=== PATIENT | female | born 1945 | race Caucasian/White ===

== ENCOUNTER → 2018-05-21 09:16 | Outpatient (CLI) | payer MEDICARE, SELFPAY ==
[2018-05-21 11:59] LABS: Anion Gap 7 (5-15); BUN 15 mg/dL (7-18); BUN/Creat Ratio 19.1 RATIO (10-20); Calcium,Total 8.9 mg/dL (8.5-10.1); Chloride 102 mmol/L (98-107); Cholesterol 173 mg/dL (200); Creatinine, Serum 0.79 mg/dL (0.55-1.02); EST Glomerular Filtration Rate 76 mL/min (>60); Est Glom Filt Rate - Afr Amer 92 mL/min (>60); Glucose 91 mg/dL (74-106); Hemoglobin A1c 5.8 % (4.2-6.3); High Density Lipoprotein 48 mg/dL; Potassium 3.6 mmol/L (3.5-5.1); Sodium Level 140 mmol/L (136-145); Triglycerides 132 mg/dL; Very Low Density Lipoprotein 26 mg/dL (5-40)
== END ==
PROVIDERS: Visit Provider Family Medicine
DX: I10 Essential (primary) hypertension (principal); R73.09 Other abnormal glucose; E78.00 Pure hypercholesterolemia, unspecified
CPT/HCPCS: 36415; 80048; 80061; 83036

== ENCOUNTER → 2019-06-26 10:09 | Outpatient (CLI) | payer MEDICARE, SELFPAY ==
[2019-06-26 12:23] LABS: Absolute Lymphocyte Count 2.52 X10^3/uL (0.83-4.51); Absolute Neutrophil Count 4.6 X10^3/uL (2.0-7.7); Basophil# 0.04 X10^3/uL; Basophil% 0.5 % (0-1); Eosinophil# 0.17 X10^3/uL; Eosinophils% 2.1 % (0-5); Hematocrit 39.1 % (37-47); Hemoglobin 13.1 g/dL (12.0-15.0); Lymphocyte # 2.52 X10^3/ul (4.0); Lymphocyte % 31.5 % (19-41); Mean Corp Hgb Conc 33.5 g/dL (32-36); Mean Corpuscular Hgb 32.3 pg (27.0-32.0); Mean Corpuscular Volume 96.3 fL (81-99); Mean Platelet Vol. 11.3 fl (6.2-12.0); Monocyte% 7.5 % (0-10); NRBC Flagged by Analyzer 0 % (0-5); Neutrophil # 4.64 X10^3/uL (2.7-7.7); Neutrophil % 58.1 % (47-70); Platelet Count 210 K/mm3 (150-450); RBC Distribution Width CV 12.8 % (11.6-14.6); RBC Distribution Width SD 45.3 fl (35.1-43.9); Red Blood Count 4.06 M/mm3 (4.2-5.4)
[2019-06-26 12:49] LABS: Anion Gap 8 (5-15); BUN 22 mg/dL (7-18); BUN/Creat Ratio 28.5 RATIO (10-20); Chloride 105 mmol/L (98-107); Cholesterol 184 mg/dL (200); Creatinine, Serum 0.77 mg/dL (0.55-1.02); EST Glomerular Filtration Rate 78 mL/min (>60); Est Glom Filt Rate - Afr Amer 94 mL/min (>60); Glucose 117 mg/dL (74-106); High Density Lipoprotein 41 mg/dL; Potassium 3.4 mmol/L (3.5-5.1); Sodium Level 145 mmol/L (136-145); Triglycerides 211 mg/dL; Very Low Density Lipoprotein 42 mg/dL (5-40)
[2019-06-26 13:00] LABS: Hemoglobin A1c 5.7 % (4.2-6.3)
== END ==
PROVIDERS: Family Provider Family Medicine; PCP Family Medicine; Referring Provider Family Medicine; Visit Provider Family Medicine
DX: I10 Essential (primary) hypertension (principal); R73.09 Other abnormal glucose; E78.00 Pure hypercholesterolemia, unspecified
CPT/HCPCS: 36415; 80048; 80061; 83036; 85025

== ENCOUNTER → 2019-07-18 | Outpatient (CLI) | payer MEDICARE, SELFPAY ==
[2019-07-18 13:11] LABS: Thyroid Stim Hormone (TSH) 1.62 uIU/mL (0.358-3.74)
== END | disposition home or self-care (01) ==
LOC: MFPLAB 10:11
PROVIDERS: Family Provider Family Medicine; PCP Family Medicine; Referring Provider Family Medicine; Visit Provider Family Medicine
DX: R60.9 Edema, unspecified (principal)
CPT/HCPCS: 36415; 84443

== ENCOUNTER → 2020-10-21 15:26 | Outpatient (CLI) | payer MEDICARE, SELFPAY ==
[2020-10-21 17:37] LABS: Absolute Lymphocyte Count 2.71 X10^3/uL (0.83-4.51); Absolute Neutrophil Count 4.7 X10^3/uL (2.0-7.7); Basophil# 0.05 X10^3/uL; Basophil% 0.6 % (0-1); Eosinophil# 0.19 X10^3/uL; Eosinophils% 2.2 % (0-5); Hematocrit 42.7 % (37-47); Hemoglobin 13.7 g/dL (12.0-15.0); Lymphocyte # 2.71 X10^3/ul (4.0); Mean Corp Hgb Conc 32.1 g/dL (32-36); Mean Corpuscular Hgb 31.4 pg (27.0-32.0); Mean Corpuscular Volume 97.7 fL (81-99); Mean Platelet Vol. 11.1 fl (6.2-12.0); Monocyte# 0.82 X10^3/uL; Monocyte% 9.7 % (0-10); NRBC Flagged by Analyzer 0 % (0-5); Neutrophil # 4.67 X10^3/uL (2.7-7.7); Neutrophil % 55.3 % (47-70); Platelet Count 220 K/mm3 (150-450); RBC Distribution Width SD 46.4 fl (35.1-43.9); Red Blood Count 4.37 M/mm3 (4.2-5.4); White Blood Count 8.5 K/mm3 (4.4-11.0)
[2020-10-21 19:27] LABS: ALB/GLOB Ratio 0.8 RATIO (0.9-2.4); AST(SGOT) 23 U/L (15-37); Alanine Aminotransfer ALT/SGPT 26 U/L (13-56); Albumin, Serum 3.2 g/dL (3.2-5.0); Alkaline Phosphatase 137 U/L (45-117); Anion Gap 6 (5-15); BUN 13 mg/dL (7-18); BUN/Creat Ratio 17.4 RATIO (10-20); Calcium,Total 9.7 mg/dL (8.5-10.1); Chloride 102 mmol/L (98-107); Creatinine, Serum 0.75 mg/dL (0.55-1.02); EST Glomerular Filtration Rate 80 mL/min (>60); Est Glom Filt Rate - Afr Amer 97 mL/min (>60); Glucose 100 mg/dL (74-106); Potassium 3.7 mmol/L (3.5-5.1); Protein, Total 7.2 g/dL (6.4-8.2); Sodium Level 139 mmol/L (136-145); Thyroid Stim Hormone (TSH) 2.24 uIU/mL (0.358-3.74)
[2020-10-22 03:33] LABS: Rapid Plasmin Reagin (RPR) NONREACTIVE (NONREACTIVE)
[2020-10-22 09:21] LABS: Hepatitis C Antibody Non-Reactive (Nonreactive); Vitamin B12 511 pg/mL (211-911); Vitamin D,25 Hydroxy 47.2 ng/mL
== END ==
PROVIDERS: PCP Family Medicine Geriatric Medicine; Referring Provider Family Medicine Geriatric Medicine; Visit Provider Family Medicine Geriatric Medicine
DX: E55.9 Vitamin D deficiency, unspecified (principal); F06.8 Other specified mental disorders due to known physiological condition; R53.83 Other fatigue; Z13.89 Encounter for screening for other disorder
CPT/HCPCS: 36415; 80053; 82306; 82607; 82746; 84443; 85025; 86592; 86803

== ENCOUNTER → 2020-10-26 13:55 | Outpatient (CLI) | payer MEDICARE, SELFPAY ==
--- NOTE | 2020-10-26 14:00 | CT_ITS ---
STUDY: CT BRAIN WITHOUT CONTRAST REASON FOR EXAM: Female, 75 years old. Mild cognitive impairment RADIATION DOSAGE (If Supplied By Facility): CTDIvol = ( 60.81 ) mGy, DLP = ( 1067.08 ) mGycm TECHNIQUE: Transaxial CT imaging of the brain was performed without administration of intravenous contrast material. Individualized dose optimization techniques were used for this CT. COMPARISON: No relevant priors. FINDINGS: Normal soft tissue structures. Normal calvarium. There is mild cerebral atrophy with widening of the extra-axial spaces and ventricular dilatation. There are areas of decreased attenuation within the white matter tracts of the supratentorial brain, consistent with microvascular disease changes. Small lacunar infarct in the insular cortex of the left temporal lobe. Normal brainstem. Normal cerebellum. There is no intracranial hemorrhage. There are no findings of an acute ischemic infarction. Mild mucosal thickening along the inferior lateral aspect of the maxillary sinuses bilaterally. CT/Brain/Head without Contrast IMPRESSION: Chronic involutional changes of the brain. 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 Electronically Signed: Mark Smith, at 14:42 EST , Service support ,
== END ==
PROVIDERS: PCP Family Medicine Geriatric Medicine; Referring Provider Family Medicine Geriatric Medicine; Visit Provider Family Medicine Geriatric Medicine
DX: F06.8 Other specified mental disorders due to known physiological condition (principal)
CPT/HCPCS: 70450

== ENCOUNTER → 2020-10-27 09:32 | Outpatient (CLI) | payer MEDICARE, SELFPAY ==
--- NOTE | 2020-10-27 09:35 | BI_ITS ---
MAMMOGRAPHY - BILATERAL SCREENING REASON FOR EXAM: Female, 75 years old. Routine annual screening examination. PERTINENT HISTORY: Non-contributory. TECHNIQUE: Digital bilateral breast phil (3D mammographic acquisition) in the CC and MLO projections. 2-D mediolateral oblique (MLO) and craniocaudad (CC) views of both breasts were obtained. CAD: Full Field Digital Mammography with Computer Added Detection was performed. COMPARISON: Comparison is made with prior study dated 10/16/2012. FINDINGS: Breast Composition: The breasts are almost entirely fatty. There are no dominant masses or suspicious calcifications. Stable 6.5 mm well-defined nodule in the upper outer aspect of the right breast suggestive of a small lymph node. There is a 7.9 mm low-density nodule with a fine rim calcification in the anterior superior medial retroareolar region of the left breast suggestive of a small fat necrosis. No other significant abnormalities are identified. There has been no significant change since the prior study. BI/SCREEN MAMM (CAD) W/PHIL BILAT IMPRESSION: Stable bilateral screening mammogram. Yearly follow-up mammogram recommended. (A) ASSESSMENT CATEGORY: BIRADS Category 2: Benign. A letter regarding these results will be sent to the patient by the facility within 30 days. Approximately 10% of breast cancers are not detected by mammography. A normal mammogram should not delay biopsy of a clinically suspicious abnormality. [id number] Electronically Signed: Mark Smith, at 10:39 EST , Service support ,
--- NOTE | 2020-10-27 09:37 | BD_ITS ---
STUDY: DUAL ENERGY X-RAY ABSORPTIOMETRY / DXA REASON FOR EXAM: Female, 75 years old. 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 COMPARISON: None. FINDINGS: Lumbar Spine (L1-L4): g/cm2 (1.280) / T-score (1.0) / Z-score (2.7) Findings are suggestive of normal bone density with a low fracture risk. Left Femur Total: g/cm2 (1.170) / T-score (1.3) / Z-score (3.0) Left Femoral Neck: g/cm2 (1.061) / T-score (0.2) / Z-score (2.1) Right Femur Total: g/cm2 (1.212) / T-score (1.6) / Z-score (3.4) Right Femoral Neck: g/cm2 (1.148) / T-score (0.8) / Z-score (2.7) BD/Dexa Bone Density Study IMPRESSION: The patient is considered normal as outlined below according to World [employer]omen[employer] Organization (WHO) criteria with a low fracture risk. Reference Information: The T-score is the number of standard deviations above or below the standard which is normal for young adults at their peak bone mineral density. The World Health Organization (WHO) interprets the T-scores as follows: Above -1 Normal bone density Between -1 and -2.5 Osteopenia Equal to / or below -2.5 Osteoporosis As a practical clinical guideline, osteopenia may be graded as follows: Mild -1 through -1.5 Moderate -1.6 through -2.0 Severe -2.1 through -2.4 The Z-score is the number of standard deviations above or below age-matched controls. A Z-score of less than -1.5 would be considered abnormal. References: 1. NIH Osteoporosis and Related Bone Diseases www osteo.org 2. International Society for Clinical Densitometry www iscd.org 3. National Osteoporosis Foundation www nof.org Electronically Signed: Mark Smith, at 14:25 EST , Service support ,
== END ==
PROVIDERS: PCP Family Medicine Geriatric Medicine; Referring Provider Family Medicine Geriatric Medicine; Visit Provider Family Medicine Geriatric Medicine
DX: Z78.0 Asymptomatic menopausal state (principal); Z12.31 Encounter for screening mammogram for malignant neoplasm of breast
CPT/HCPCS: 77063; 77067; 77080

== ENCOUNTER → 2021-02-16 14:33 | Outpatient (CLI) | payer MEDICARE, SELFPAY ==
--- NOTE | 2021-02-16 14:40 | RAD_ITS ---
STUDY: X-RAY - LUMBAR SPINE REASON FOR EXAM: Female, 75 years old. LOW BACK PAIN TECHNIQUE: 3 view(s) of the lumbar spine were obtained. COMPARISON: None FINDINGS: Normal lumbar lordosis. There is a mild levoscoliosis of the lumbar spine. There is a normal alignment of the vertebrae. There is multilevel endplate spondylosis of the lumbar vertebrae. There is multi-level degenerative disc disease with multi-level disc space narrowing. There is atherosclerotic calcification of the abdominal aorta without a demonstrated aneurysm. RAD/Lumbar Spine 2 or 3 Views IMPRESSION: Degenerative changes of the spine, as detailed above. Electronically Signed: Mark Smith MD at 9:18 EDT , Service support ,
== END ==
PROVIDERS: PCP Family Medicine Geriatric Medicine; Referring Provider Family Medicine Geriatric Medicine; Visit Provider Family Medicine Geriatric Medicine
DX: M54.5 Low back pain (principal)
CPT/HCPCS: 72100

== ENCOUNTER → 2021-02-21 16:32 | Outpatient (CLI) | payer MEDICARE, SELFPAY | PROVIDERS: PCP Family Medicine Geriatric Medicine; Visit Provider Family Medicine Geriatric Medicine | DX: N39.0 Urinary tract infection, site not specified (principal) | CPT/HCPCS: 87086; 87088 ==

== ENCOUNTER → 2021-03-03 12:44 | Outpatient (CLI) | payer MEDICARE, SELFPAY ==
--- NOTE | 2021-03-03 12:51 | MRI_ITS ---
STUDY: MRI LUMBAR SPINE WITHOUT CONTRAST REASON FOR EXAM: Female, 75 years old. LOW BACK PAIN TECHNIQUE: Standardized fat and water weighted pulse sequences were obtained in the sagittal and axial planes. COMPARISON: X-ray 02/16/2021 FINDINGS: T12-L1: Normal endplates. Normal disc height, hydration and morphology. Normal bilateral facet joints. Normal central canal and bilateral lateral recesses. Normal bilateral intervertebral neural foramina. Normal lumbar lordosis. Mild levoscoliosis centered at L3. Normal conus medullaris that terminates at the L1/L2. L1-2: Mild bilateral facet hypertrophy and moderate ligament flavum hypertrophy. No disc protrusion, spinal stenosis, or neural foraminal stenosis. L2-3: Mild bilateral facet hypertrophy and moderate ligament flavum hypertrophy. No disc protrusion, spinal stenosis, or neural foraminal stenosis. L3-4: Moderate bilateral facet hypertrophy and ligament flavum hypertrophy. Mild bilobed disc protrusion produces mild spinal stenosis and mild bilateral neural foraminal stenosis. L4-5: Moderate bilateral facet hypertrophy and ligament flavum hypertrophy. Mild broad disc protrusion produces mild spinal stenosis and mild bilateral neural foraminal stenosis. L5-S1: Severe bilateral facet hypertrophy and moderate ligament flavum hypertrophy. 2 mm of anterolisthesis of L5 on S1 with a mild broad disc protrusion produces mild spinal stenosis but moderate bilateral neural foraminal stenosis. Normal visualized sacral ala. Normal visualized paraspinous soft tissue structures. MRI/Spine Lumbar (Routine) IMPRESSION: Mild levoscoliosis with diffuse degenerative disc disease as described above. Electronically Signed: Martinez Marinelli MD at 15:31 EDT Tel , Service support ,
== END ==
PROVIDERS: PCP Family Medicine Geriatric Medicine; Referring Provider Family Medicine Geriatric Medicine; Visit Provider Family Medicine Geriatric Medicine
DX: M54.5 Low back pain (principal)
CPT/HCPCS: 72148

== ENCOUNTER → 2021-04-22 08:58 | Outpatient (CLI) | payer MEDICARE, SELFPAY ==
[2021-04-22 12:23] LABS: Absolute Lymphocyte Count 1.97 X10^3/uL (0.83-4.51); Absolute Neutrophil Count 5.3 X10^3/uL (2.0-7.7); Basophil# 0.04 X10^3/uL; Basophil% 0.5 % (0-1); Eosinophil# 0.11 X10^3/uL; Eosinophils% 1.3 % (0-5); Hematocrit 43.5 % (37-47); Hemoglobin 14.3 g/dL (12.0-15.0); Lymphocyte # 1.97 X10^3/ul (0.83-4.51); Lymphocyte % 24.2 % (19-41); Mean Corp Hgb Conc 32.9 g/dL (32-36); Mean Corpuscular Hgb 31.4 pg (27.0-32.0); Mean Corpuscular Volume 95.6 fL (81-99); Mean Platelet Vol. 11.1 fl (6.2-12.0); Monocyte# 0.69 X10^3/uL; Monocyte% 8.5 % (0-10); NRBC Flagged by Analyzer 0 % (0-5); Neutrophil # 5.31 X10^3/uL (2.7-7.7); Neutrophil % 65.1 % (47-70); Platelet Count 252 K/mm3 (150-450); RBC Distribution Width CV 13.6 % (11.6-14.6); RBC Distribution Width SD 47.8 fl (35.1-43.9); Red Blood Count 4.55 M/mm3 (4.2-5.4); White Blood Count 8.2 K/mm3 (4.4-11.0)
[2021-04-22 12:40] LABS: Vitamin D,25 Hydroxy 48.2 ng/mL
[2021-04-22 12:45] LABS: ALB/GLOB Ratio 0.8 RATIO (0.9-2.4); AST(SGOT) 21 U/L (15-37); Alanine Aminotransfer ALT/SGPT 29 U/L (13-56); Alkaline Phosphatase 122 U/L (45-117); Anion Gap 5 (5-15); BUN 14 mg/dL (7-18); Calcium,Total 9.1 mg/dL (8.5-10.1); Chloride 105 mmol/L (98-107); Creatinine, Serum 0.87 mg/dL (0.55-1.02); EST Glomerular Filtration Rate 67 mL/min (>60); Est Glom Filt Rate - Afr Amer 81 mL/min (>60); Globulin 3.8 g/dL (2.2-4.2); Glucose 108 mg/dL (74-106); Potassium 3.8 mmol/L (3.5-5.1); Protein, Total 6.8 g/dL (6.4-8.2); Sodium Level 141 mmol/L (136-145); Thyroid Stim Hormone (TSH) 1.66 uIU/mL (0.358-3.74)
== END ==
PROVIDERS: PCP Family Medicine Geriatric Medicine; Visit Provider Family Medicine Geriatric Medicine
DX: E55.9 Vitamin D deficiency, unspecified (principal); I10 Essential (primary) hypertension
CPT/HCPCS: 36415; 80053; 82306; 84443; 85025

== ENCOUNTER 2021-06-27 14:14 | Observation (INO) | payer MEDICARE, SELFPAY ==
[2021-06-27] VITALS (7 sets, daily range): BP systolic 185–244; BP diastolic 63–93; PULSE 51–97; RESP 16–18; TEMP 35.5–36.7; O2SAT 95–100; BMI 40.2; BMI 40.6
--- NOTE | 2021-06-27 16:05 | RAD_ITS ---
STUDY: X-RAY CHEST REASON FOR EXAM: Female, 76 years old. dizziness TECHNIQUE: Single frontal view of the chest. COMPARISON: 10/23/2014 chest x-ray FINDINGS: Elevated right hemidiaphragm. Subsegmental atelectasis right lower lobe. The lungs are clear and expanded. There is no demonstrated pleural abnormality. Normal size heart. Normal mediastinum and jose rafael. Normal visualized pulmonary arteries. Normal visualized aortic arch and descending thoracic aorta. Normal visualized thoracic spine. Normal visualized ribs, clavicles, and shoulders. There is no demonstrated abnormality of the visualized soft tissue structures of the upper abdomen. RAD/Chest 1 View (Portable) IMPRESSION: Subsegmental atelectasis right lower lung field. Otherwise no acute disease. Electronically Signed: Alexis Chavez MD at 17:58 EDT , Service support ,
--- NOTE | 2021-06-27 16:05 | EKG12_ITS ---
Test Reason : DIZZY Blood Pressure : / mmHG Vent. Rate : 045 BPM Atrial Rate : 045 BPM P-R Int : 142 ms QRS Dur : 076 ms QT Int : 462 ms P-R-T Axes : 061 000 026 degrees QTc Int : 399 ms Sinus bradycardia Otherwise normal ECG Confirmed by [place] SANDERS, ERIC ([id number]), technical editor KENDAL MCKENNA ([id number]) on 06/29/2021 10:42:48 AM Referred By: EUFEMIA Confirmed By:ERIC OSBORNE MD
--- NOTE | 2021-06-27 16:10 | EX.ED.DYSGE1 ---
HPI History of Present Illness Chief Complaint: Dizziness Informant: patient Narrative Narrative: Patient is a 76-year-old female with history of diabetes mellitus, hyperlipidemia, GERD and hypertension presenting with dizziness. Patient states she woke up this morning and felt dizzy. She states is worse whenever she tries to stand up. She states she sat up and then threw up because she was a dizzy. She notes she then fell like she was going to pass out. Family checked her and said she was very clammy. She never had this before. She is better when she is at rest. She denies associated chest pain, shortness of breath, fever, cough, abdominal pain, change in her bowel habits, black or blood in her stool, or urinary symptoms. Did not take any medications prior to arrival for her symptoms. No she did take her morning medicines but then threw up shortly afterward so she is not sure if they stay down. [facility] Medical History (Updated 06/28/21 @ 00:[address] Amy Beal, DO) HTN (hypertension) Hyperlipidemia Morbid obesity with BMI of 45.0-49.9, adult Home Medications metoprolol tartrate 200 mg PO DAILY 10/23/14 [History Last Taken 10/23/14 08:00] aspirin 81 mg PO DAILY@0800 #90 tablet 10/24/14 [Rx Last Taken Unknown] Systane (PF) 1 cap DAILY 06/27/21 [History Last Taken Unknown] calcium 500 mg PO DAILY 06/27/21 [History Last Taken Unknown] cholecalciferol (vitamin D3) [Vitamin D3] 50 mcg PO DAILY 06/27/21 [History Last Taken Unknown] docosahexaenoic acid-epa [Fish Oil (with DHA-EPA)] 1 cap PO DAILY 06/27/21 [History Last Taken Unknown] hydrochlorothiazide [HydroDiuril] 50 mg PO DAILY 06/27/21 [History Last Taken Unknown] rivastigmine tartrate 1.5 mg PO BID 06/27/21 [History Last Taken Unknown] Allergy/AdvReac Type Severity Reaction Status Date / Time No Known Allergies Allergy Verified 06/27/21 14:16 Family History Mother CVA (cerebral vascular accident) Hypertension Cancer Leukemia Father CVA (cerebral vascular accident) COPD (chronic obstructive pulmonary disease) Surgical History History of section Hx of cholecystectomy S/P tonsillectomy and adenoidectomy Social History household members: none Smoking Status: Never smoker alcohol intake: never substance use type: does not use ROS ROS ED Constitutional Constitutional ED: Reports sweats and other Details: Dizziness ; Denies chills or fever(s) Eyes Eyes: Denies blurry vision or change in vision ENT ENT ED: Denies ear pain or sore throat Cardiovascular Cardiovascular: Denies chest pain or palpitations Respiratory/Chest Respiratory/Chest: Denies cough or dyspnea Gastrointestinal Gastrointestinal: Reports nausea and vomiting; Denies abdominal pain, constipation, diarrhea or melena Genitourinary Genitourinary ED: Denies dysuria or hematuria Musculoskeletal Musculoskeletal: Denies myalgias Integumentary Denies rash Neurologic Neurologic: Denies headache(s), paresthesias or weakness Psychiatric Psychiatric: Denies depression EXAM Physical Exam Const Vital Signs: 06/27/21 14:16 06/27/21 16:34 06/27/21 16:36 Temperature 95.9 F L Temperature Source Temporal Pulse Rate 97 Respiratory Rate 16 Respiratory Effort Normal Non-Labored Respiratory Pattern Normal Blood Pressure 199/88 H 188/75 H Blood Pressure Mean 125 112 Pulse Ox 95 Oxygen Delivery Method Room Air 06/27/21 18:02 Temperature Temperature Source Pulse Rate 51 L Respiratory Rate 16 Respiratory Effort Respiratory Pattern Blood Pressure 244/77 H Blood Pressure Mean 132 Pulse Ox 97 Oxygen Delivery Method Room Air Positive well nourished, well developed and obese General Appearance ED: well developed Nutritional Appearance: obese HEENT Reports TM's clear and moist mucous membranes Negative for tenderness Tympanic Membrane ED: Yes TM's clear Eyes PERRL and EOMs intact bilaterally Eyes Narrative: Patient has resting horizontal nystagmus especially with left lateral gaze. Positive Britni-Hallpike maneuver on the left Neck supple and no JVD Resp normal respiratory effort and clear to auscultation bilaterally Cardio regular rate, regular rhythm and no murmurs GI normal to inspection, nondistended, normoactive bowel sounds and non-tender Back/Spine no CVA tenderness Extremity normal to inspection General Extremety ED: Negative for edema or tenderness General Extremity: Negative for edema Neuro oriented x3, CN's II-XII intact bilaterally and no sensory deficits noted Sensorium / Orientation: alert Motor Exam: strength 5/5 throughout; Negative for general weakness Psych mental status grossly normal Skin no rashes or lesions noted MDM MDM MDM Narrative Medical decision making narrative: Patient is evaluated for dizziness. Physical exam is consistent with vertigo however she is states she feels more like she is lightheaded going to pass out. She does have multiple comorbidities and is 76 so metabolic/cardiac work-up was also performed. Patient is found to have an elevated high-sensitivity troponin of 104.4. She does not have any acute EKG changes. This is discussed with cardiology who would like to admit for trending but does not think she needs to be treated as an NSTEMI with heparin drip at this time. Patient is given aspirin the emergency room as well as meclizine. She is quite hypertensive in the ER and is treated with IV hydralazine. She is admitted for further cardiac evaluation and treatment for her dizziness. Patient is agreeable this plan of care. Lab Data Labs: Laboratory Results - last 24 hr 06/27/21 06/27/21 06/27/21 16:00 16:00 17:12 WBC 10.0 RBC 4.45 Hgb 14.4 Hct 44.1 MCV 99.1 H MCH 32.4 H MCHC 32.7 RDW Std Deviation 46.6 H RDW Coeff of Alexa 12.9 Plt Count 253 MPV 10.8 Immature Gran % (Auto) 0.500 Neut % (Auto) 74.0 H Lymph % (Auto) 19.1 [place]field % (Auto) 5.3 Eos % (Auto) 0.8 Baso % (Auto) 0.3 Absolute Neuts (auto) 7.4 Absolute Lymphs (auto) 1.90 Nucleated RBC % 0 Sodium 139 Potassium 4.3 Chloride 102 Carbon Dioxide 32.0 Anion Gap 5 BUN 11 Creatinine 0.66 Estim Creat Clear Calc 37.85 Est GFR (MDRD) Af Amer 111 Est GFR (MDRD) Non-Af 92 BUN/Creatinine Ratio 16.6 Glucose 108 H Calcium 9.3 Total Bilirubin 1.10 H AST 31 ALT 23 Alkaline Phosphatase 108 Troponin I High Sens 104.4 H* Total Protein 7.1 Albumin 3.1 L Globulin 4.0 Albumin/Globulin Ratio 0.8 L Lipase 61 L Urine Color Yellow Urine Clarity Clear Urine pH 7.0 Ur Specific [place] 1.010 Urine Protein Negative Urine Glucose (UA) Normal Urine Ketones Negative Urine Occult Blood Negative Urine Nitrite Negative Urine Bilirubin Negative Urine Urobilinogen Normal Ur Leukocyte Esterase Negative Urine RBC 0 SEEN Urine WBC 0-5 SEEN Ur Squamous Epith Cells 0 SEEN Urine Bacteria 0 SEEN Urine Mucus 0 SEEN Radiography Chest X-Ray - ED: 1 View, Read by ED Physician, Read by Radiologist and No Acute Disease Diagnostic Testing: Radiology Impression Brain CT 06/27/21 17:47 IMPRESSION: Chronic involutional changes of the brain. No change or acute abnormality. Electronically Signed: Leeroy Schroeder MD at 19:05 EDT , Service support , Rhythm Strip Rhythm Strip: sinus bradycardia Rate: 45 Ectopy: None EKG Initial EKG: Attestation: I personally reviewed and interpreted this EKG as follows: Interpretation: Sinus Bradycardia Comments: Sinus bradycardia rate of 45 Slight left axis deviation Normal intervals Nonspecific T wave inversion in lead III Normal ST segments Discharge Plan Dx/Rx/DC Orders Clinical Impression: NSTEMI, initial episode of care, BPPV (benign paroxysmal positional vertigo), Hypertension Disposition Disposition: Acute Care Hospital [facility] Discharge Date/Time: 06/27/21 19:49
[2021-06-27 16:22] LABS: Absolute Neutrophil Count 7.4 X10^3/uL (2.0-7.7); Basophil# 0.03 X10^3/uL; Basophil% 0.3 % (0-1); Eosinophil# 0.08 X10^3/uL; Eosinophils% 0.8 % (0-5); Hematocrit 44.1 % (37-47); Hemoglobin 14.4 g/dL (12.0-15.0); Lymphocyte % 19.1 % (19-41); Mean Corp Hgb Conc 32.7 g/dL (32-36); Mean Corpuscular Hgb 32.4 pg (27.0-32.0); Mean Corpuscular Volume 99.1 fL (81-99); Mean Platelet Vol. 10.8 fl (6.2-12.0); Monocyte# 0.53 X10^3/uL; Monocyte% 5.3 % (0-10); NRBC Flagged by Analyzer 0 % (0-5); Neutrophil # 7.37 X10^3/uL (2.7-7.7); Platelet Count 253 K/mm3 (150-450); RBC Distribution Width CV 12.9 % (11.6-14.6); RBC Distribution Width SD 46.6 fl (35.1-43.9); Red Blood Count 4.45 M/mm3 (4.2-5.4)
[2021-06-27] MEDS: Meclizine HCl 25 MG Tablet PO (16:41)
[2021-06-27] MEDS: Ondansetron 4 MG/2 ML Vial IV (16:42)
[2021-06-27 17:02] LABS: ALB/GLOB Ratio 0.8 RATIO (0.9-2.4); AST(SGOT) 31 U/L (15-37); Alanine Aminotransfer ALT/SGPT 23 U/L (13-56); Albumin, Serum 3.1 g/dL (3.2-5.0); Alkaline Phosphatase 108 U/L (45-117); Anion Gap 5 (5-15); BUN 11 mg/dL (7-18); BUN/Creat Ratio 16.6 RATIO (10-20); Calcium,Total 9.3 mg/dL (8.5-10.1); Chloride 102 mmol/L (98-107); Creatinine, Serum 0.66 mg/dL (0.55-1.02); EST Glomerular Filtration Rate 92 mL/min (>60); Est Glom Filt Rate - Afr Amer 111 mL/min (>60); Estimated Creatinine Clearance 37.85 ml/min; Glucose 108 mg/dL (74-106); Lipase 61 U/L (73-393); Potassium 4.3 mmol/L (3.5-5.1); Protein, Total 7.1 g/dL (6.4-8.2); Sodium Level 139 mmol/L (136-145); Troponin-I HS 104.4 pg/mL (3.0-53.7)
--- NOTE | 2021-06-27 17:47 | CT_ITS ---
STUDY: CT BRAIN WITHOUT CONTRAST REASON FOR EXAM: Female, 76 years old. dizziness RADIATION DOSAGE (If Supplied By Facility): CTDIvol = ( 44.99 ) mGy, DLP = ( 698.28 ) mGycm TECHNIQUE: Transaxial CT imaging of the brain was performed without administration of intravenous contrast material. Individualized dose optimization techniques were used for this CT. COMPARISON: 10/26/2020 FINDINGS: Normal soft tissue structures. Normal calvarium. There is mild cerebral atrophy with widening of the extra-axial spaces and ventricular dilatation. There are areas of decreased attenuation within the white matter tracts of the supratentorial brain, consistent with microvascular disease changes. Normal basal ganglia and thalami. Normal brainstem. Normal cerebellum. There is no intracranial hemorrhage. There are no findings of an acute ischemic infarction. Normal visualized paranasal sinuses. CT/Brain/Head without Contrast IMPRESSION: Chronic involutional changes of the brain. No change or acute abnormality. Electronically Signed: Leeroy Schroeder MD at 19:05 EDT , Service support ,
[2021-06-27] MEDS: hydrALAZINE 20 MG/ML Vial 10 MG IV (17:52)
[2021-06-27] MEDS: Aspirin 325 MG Tablet PO (17:52)
--- NOTE | 2021-06-27 17:52 | HP.PCM.HOS_ITS ---
HPI - General General Date of Admission: 06/27/21 Date of Service: 06/27/21 Chief Complaint: Dizziness, N/V HPI Narrative The patient is 76 y/o F w/ PMHx: Morbid obesity, HTN, HLD, GERD not on regimen who presents to the [facility] ED on 06/27/21 with history of awaking this morning with dizziness, described as room spinning sensation with associated nausea as well as emesis, worse with inactivity attempts with near syncope related with family evaluation later in the day noting that she was very diaphoretic eventually bring her into the ED for evaluation. She denied any chest discomfort or any recent exertional dyspnea but does state that she is not very active. Work-up in the ED included T 95.9, HR 97, BP 199/88-->188/75, RR 16, 95-96% on RA, CBC with WC 10, hemoglobin 14.4, platelet 253 without marked shift, CMP with glucose 108, total bilirubin 1.10, high-sensitivity troponin 104.4, chest x-ray with sinus bradycardia with no acute evidence of ischemia with nonspecific T wave inversions in lead III, chest x-ray with no acute cardiopulmonary findings, CT head ordered and pending upon evaluation of patient per discussion with ED physician. In the ED patient ministered aspirin 325 mg p.o. x1, hydralazine 10 mg IV x1, meclizine 25 mg p.o. x1, Zofran 4 mg IV x1. Urinalysis also requested per ED physician and pending upon evaluation. ED physician did discuss case with traveling inventory associate who requested continued enzyme trending and if further bassem to then initiate therapeutic Lovenox versus heparin with ongoing consultation. [facility] Medical History (Updated 06/27/21 @ 18:[address] Nehal English MD) HTN (hypertension) Hyperlipidemia Morbid obesity with BMI of 45.0-49.9, adult Home Medications lovastatin 100 mg PO DAILY 10/23/14 [History Last Taken 10/23/14 08:00] metoprolol tartrate 200 mg PO DAILY 10/23/14 [History Last Taken 10/23/14 08:00] Lisinopril/Hydrochlorothiazide [Zestoretic 20/25 Tablet] 1 tab PO DAILY #30 t ablet 10/24/14 [Rx Last Taken Unknown] aspirin 81 mg PO DAILY@0800 #90 tablet 10/24/14 [Rx Last Taken Unknown] omeprazole 20 mg PO DAILY #30 capsule 10/24/14 [Rx Last Taken Unknown] Allergy/AdvReac Type Severity Reaction Status Date / Time No Known Allergies Allergy Verified 06/27/21 14:16 Family History (Updated 06/27/21 @ 18:[address] Nehal English MD) Mother CVA (cerebral vascular accident) Hypertension Cancer Leukemia Father CVA (cerebral vascular accident) COPD (chronic obstructive pulmonary disease) Surgical History (Updated 06/27/21 @ 18:[address] Nehal English MD) History of section Hx of cholecystectomy S/P tonsillectomy and adenoidectomy Social History (Updated 06/27/21 @ 18:[address] Nehal English MD) household members: none Smoking Status: Never smoker alcohol intake: never substance use type: does not use ROS ROS Narrative Admission Review of Systems: CONSTITUTIONAL: No weight loss, fever, chills, + weakness or fatigue. HEENT: + Dizziness, room spinning. Eyes: No visual loss, blurred vision, double vision or yellow sclerae. Ears, Nose, Throat: No hearing loss, sneezing, congestion, runny nose or sore throat. SKIN: No rash or itching, lesions, wounds. CARDIOVASCULAR: + Dizziness, room spinning. No chest pain, chest pressure or chest discomfort, palpitations, edema, orthopnea, syncopal events. RESPIRATORY: No shortness of breath, cough or sputum, wheezing, hemoptysis. GASTROINTESTINAL: No anorexia, nausea, vomiting or diarrhea, abdominal pain, melena, BRBPR. GENITOURINARY: No dysuria, frequency, urgency or retention. NEUROLOGICAL: + Dizziness, room spinning.No headache, dizziness, syncope, paralysis, ataxia, numbness or tingling in the extremities, focal weakness, change in bowel or bladder control, seizure. MUSCULOSKELETAL: + muscle, back pain, joint pain or stiffness. HEMATOLOGIC: No anemia, bleeding or bruising. LYMPHATICS: No enlarged nodes. No history of splenectomy. PSYCHIATRIC: No history of depression or anxiety. ENDOCRINOLOGIC: No reports of sweating, cold or heat intolerance. No polyuria or polydipsia. ALLERGIES: No history of asthma, hives, eczema or rhinitis. Vital Signs Vital Signs Vital Signs: 06/27/21 14:16 06/27/21 16:34 06/27/21 16:36 Temperature 95.9 F L Temperature Source Temporal Pulse Rate 97 Respiratory Rate 16 Respiratory Effort Normal Non-Labored Respiratory Pattern Normal Blood Pressure 199/88 H 188/75 H Blood Pressure Mean 125 112 Pulse Ox 95 Oxygen Delivery Method Room Air Weight Weight: 220 lb Body Mass Index (BMI) 40.2 Physical Exam Narrative Physical Examination: General: Awake, alert, oriented x 3 and cooperative, seated upright in ED bed in no apparent distress, does report still ongoing mild room spinning sensation with movement, improved since presentation. Skin: Normal color, normal turgor, no icterus, no cyanosis. HEENT: AT/NC, EOMI, PERRLA, moderately dry MM, no carotid bruits or JVD noted. Lungs: Diminished, > bases, appropriate effort, no rales, ronchi or wheezing. Heart: Regular rate and rhythm; no gallop, rub audible. Abdomen: Soft, morbidly obese, NTTP, ND, mildly hyperactive distant BS, no obvious HSM although difficult exam given habitus. Extremities: No cyanosis, no clubbing, mild BL ankle non-pitting edema. Neurological: Patient awake, alert, oriented x 3, cognitive function intact; pupils equally reactive to light and accommodation, cranial nerves II-XII grossly normal, moving all 4 extremities, no focal deficits, strength moderately to severely globally decreased secondary to acute presentation, ED physician w/ + DHM L sided, unable to reproduce. Psychiatric: Affect appears fatigued, no acute evidence of depressive or anxiety feelings. Results Lab / Micro Data Result Diagrams: 06/27/21 16:00 06/27/21 16:00 Labs: Laboratory Results - last 24 hr 06/27/21 16:00: WBC 10.0, RBC 4.45, Hgb 14.4, Hct 44.1, MCV 99.1 H, MCH 32.4 H, MCHC 32.7, RDW Std Deviation 46.6 H, RDW Coeff of Alexa 12.9, Plt Count 253, MPV 10.8, Immature Gran % (Auto) 0.500, Neut % (Auto) 74.0 H, Lymph % (Auto) 19.1, [place] % (Auto) 5.3, Eos % (Auto) 0.8, Baso % (Auto) 0.3, Absolute Neuts (auto) 7.4, Absolute Lymphs (auto) 1.90, Nucleated RBC % 0 06/27/21 16:00: Sodium 139, Potassium 4.3, Chloride 102, Carbon Dioxide 32.0, Anion Gap 5, BUN 11, Creatinine 0.66, Estim Creat Clear Calc 37.85, Est GFR (MDRD) Af Amer 111, Est GFR (MDRD) Non-Af 92, BUN/Creatinine Ratio 16.6, Glucose 108 H, Calcium 9.3, Total Bilirubin 1.10 H, AST 31, ALT 23, Alkaline Phosphatase 108, Troponin I High Sens 104.4 H*, Total Protein 7.1, Albumin 3.1 L, Globulin 4.0, Albumin/Globulin Ratio 0.8 L, Lipase 61 L Rhythm Strip Rhythm Strip: sinus bradycardia Rate: 45 Ectopy: None Assessment & Plan Assessment/Plan (1) NSTEMI, initial episode of care: (2) BPPV (benign paroxysmal positional vertigo): QUALIFIERS: Laterality: left Qualified Code(s): H81.12 - Benign paroxysmal vertigo, left ear (3) Morbid obesity with BMI of 45.0-49.9, adult: PLAN: The patient is 76 y/o F w/ PMHx: Morbid obesity, HTN, HLD, GERD not on regimen who presents to the [facility] ED on 06/27/21 with history of awaking this morning with dizziness, described as room spinning sensation with associated nausea as well as emesis, worse with inactivity attempts with near syncope related with family evaluation later in the day noting that she was very diaphoretic eventually bring her into the ED for evaluation. 1. Acute Suspected Evolving NSTEMI: EKG in ED w/ sinus bradycardia with no acute evidence of ischemia, CXR w/ no acute cardiopulmonary findings. Trop elevated, high-sensitivity 104.4. Will admit to PCU, maintain on a monitored bed, continue serial cardiac enzymes and EKGs. Obtain magnesium level upon admission. Per Cardiology specific request continue cardiac enzyme trending and if further rises initiate therapeutic lovenox. Continue medical management w/ asa, BB, statin w/ AM FLP. Cardiology consulted. ASA, NG, morphine. 2. Hypertensive urgency: CT head as noted pending, if no acute findings that require transition from ED to tertiary facility would plan to admit, as noted maintain on telemetry monitoring, continue patient metoprolol, lisinopril, hydrochlorothiazide regimen however would have as needed IV hydralazine as needed. If refractory may require consideration Cardene drelida. 3. Dizziness concerning for BPPV although concern associated with #1, #2: As noted CT head pending, did have noted positive left-sided Britni-Hallpike upon maneuvering, administered meclizine in the ED, will continue as needed meclizine, fall precautions, therapies consulted. 4. Hyperlipidemia: Continue home statin regimen. AM FLP. 5. Morbid Obesity: Weight loss and lifestyle changes encouraged, nutrition consulted. 6. GERD: We will maintain on PPI. 7. DVT prophylaxis: SCDs, Lovenox prophylactic only however if continued enzyme trending with rise further will transition to therapeutic Lovenox. 8. CODE status: Patient SANDRA is her son who is present and living will is currently in place. Discussed CODE status at length including difference between FULL code, DNR-CCA and DNR-CC status. Following discussions about the difference s in these status, requested Full Code. Advanced Care Planning Face to Face Time: 16 minutes. Charges/Coding Visit Charges Inpatient E&M: 01238 Init Hosp L3 Procedures Hospitalists Procedures: 54346 Advncd Care Plan 30 Min
[2021-06-27 19:29] LABS: Bacteria 0 SEEN /hpf (None Seen); Mucous, Urine 0 SEEN /hpf (<or=2+); Red Blood Cells-Urine 0 SEEN /hpf (0-5); Squamous Epithelial Cells - UA 0 SEEN /hpf (5-10)
[2021-06-27 19:33] LABS: Color, Urine Yellow (Yellow); Glucose, Dipstick Normal (Normal); Ketone-Dipstick Negative (Negative); Leukocyte Esterase-Dipstick Negative /ul (Negative); Nitrite-Dipstick Negative (Negative); Occult Blood-Urine Negative /ul (Negative); Protein-Dipstick Negative (Negative); Urine Bilirubin Dipstick Negative (Negative); Urine Clarity Clear (Clear); Urine Urobilinogen Normal (Normal)
[2021-06-27 19:36] LABS: White Blood Cells 0-5 SEEN /hpf (0-5)
--- NOTE | 2021-06-27 20:02 | ECHOCS_ITS ---
Reason For Study: NSTEMI Procedure This was a 2D Doppler, Color Flow transthoracic echocardiogram. The study was technically limited. Contrast injection was performed. Exam performed portable in patient room. Left Ventricle Normal LV size. The estimated ejection fraction is 60 %. Diastolic function is indeterminate. No regional wall motion abnormalities noted. Right Ventricle Normal RV size. Normal systolic function. Atria Normal left atrium. Normal right atrium. No doppler evidence for ASD. Mitral Valve There is moderate to severe mitral annular calcification. There is no mitral valve stenosis. No mitral valve insufficiency. Tricuspid Valve There is no tricuspid stenosis. Unable to estimate RV systolic pressure due to insufficient tricuspid regurgitant envelope. Trivial tricuspid valve insufficiency. Aortic Valve There is no aortic stenosis. Trivial aortic valve insufficiency. Pulmonic Valve There is no pulmonic valvular stenosis. No pulmonic valve insufficiency. Great Vessels Normal aortic root. Pericardium/Pleural No pericardial effusion. Medication Diluted definity 2.0ml given slow IV push to enhance endocardial definition. MMode/2D Measurements & Calculations LVIDd: 5.0 cm IVSd: 0.97 cm Ao root diam: 3.6 cm LVIDs: 3.1 cm LVPWd: 0.96 cm RVDd: 3.1 cm FS: 37.5 % LAV(MOD-bp): 45.3 ml LA A4 area: 14.9 cm2 LA dimension(2D): 4.3 cm LAV(MOD-bp) Indexed: 22.7 ml/m2 LAV(MOD-sp2): 43.4 ml LAV(MOD-sp4): 37.4 ml RA A4 area: 11.1 cm2 Time Measurements MV dec time: 0.35 sec Doppler Measurements & Calculations MV E max jayesh: 106.9 cm/sec Lat Peak E' Jayesh: 7.5 cm/sec Med Peak E' Jayesh: 5.9 cm/sec MV A max jayesh: 111.2 cm/sec E/E' lat: 14.3 E/E' med: 18.0 MV E/A: 0.96 MV V2 max: 118.6 cm/sec Ao V2 max: 150.3 cm/sec LV V1 max: 111.8 cm/sec MV max P.6 mmHg Ao max P.2 mmHg LV V1 max P.0 mmHg MV V2 mean: 50.0 cm/sec MV mean P.5 mmHg MV V2 VTI: 49.1 cm PA V2 max: 107.4 cm/sec TR max jayesh: 243.0 cm/sec MV P1/2t-pr_phl: 223.1 msec PA V2 mean: 54.7 cm/sec TR max P.6 mmHg PA V2 VTI: 53.5 cm ECHO/Echo Complete W/ Contrast Interpretation Summary The estimated ejection fraction is 60 %. Diastolic function is indeterminate. Trivial aortic valve insufficiency. Ordering Physician: Nehal English Referring Physician: EMILI PEREZ Performed By: Ynes Lyon, TERRENCE, RVT
[2021-06-27 20:10] LABS: Troponin-I HS 91.2 pg/mL (3.0-53.7)
[2021-06-27] MEDS: 0.9% Normal Saline 1,000 ML 100 ML IV (22:00)
[2021-06-27] MEDS: Enoxaparin 40 MG/0.4 ML Syringe SC (22:31)
[2021-06-27] MEDS: Pantoprazole Sodium 20 MG Tablet PO (22:32)
[2021-06-27] MEDS: Atorvastatin Calcium 10 MG Tablet 5 MG PO (22:32)
[2021-06-27 22:57] LABS: Troponin-I HS 109.2 pg/mL (3.0-53.7)
[2021-06-28] VITALS (14 sets, daily range): BP systolic 110–189; BP diastolic 47–68; PULSE 43–93; RESP 16–18; TEMP 36.5–37.1; O2SAT 93–98
--- NOTE | 2021-06-28 05:55 | EKG12_ITS ---
Test Reason : AM EKG Blood Pressure : / mmHG Vent. Rate : 042 BPM Atrial Rate : 042 BPM P-R Int : 142 ms QRS Dur : 082 ms QT Int : 490 ms P-R-T Axes : 027 018 046 degrees QTc Int : 409 ms Marked sinus bradycardia Abnormal ECG Confirmed by [place] SANDERS, ERIC ([id number]), all source intelligence analyst KENDAL MCKENNA ([id number]) on 06/29/2021 10:46:12 AM Referred By: EUFEMIA Confirmed By:ERIC OSBORNE MD
[2021-06-28 06:38] LABS: Absolute Lymphocyte Count 1.99 X10^3/uL (0.83-4.51); Basophil# 0.03 X10^3/uL; Basophil% 0.4 % (0-1); Eosinophil# 0.11 X10^3/uL; Eosinophils% 1.4 % (0-5); Hematocrit 39.9 % (37-47); Hemoglobin 13.1 g/dL (12.0-15.0); Lymphocyte # 1.99 X10^3/ul (0.83-4.51); Lymphocyte % 25.6 % (19-41); Mean Corp Hgb Conc 32.8 g/dL (32-36); Mean Corpuscular Hgb 32.5 pg (27.0-32.0); Mean Platelet Vol. 10.9 fl (6.2-12.0); Monocyte# 0.61 X10^3/uL; Monocyte% 7.9 % (0-10); NRBC Flagged by Analyzer 0 % (0-5); Neutrophil % 64.3 % (47-70); Platelet Count 209 K/mm3 (150-450); RBC Distribution Width CV 12.8 % (11.6-14.6); RBC Distribution Width SD 46.5 fl (35.1-43.9); Red Blood Count 4.03 M/mm3 (4.2-5.4); White Blood Count 7.8 K/mm3 (4.4-11.0)
[2021-06-28 07:02] LABS: ALB/GLOB Ratio 0.8 RATIO (0.9-2.4); AST(SGOT) 19 U/L (15-37); Alanine Aminotransfer ALT/SGPT 19 U/L (13-56); Albumin, Serum 2.7 g/dL (3.2-5.0); Alkaline Phosphatase 90 U/L (45-117); Anion Gap 5 (5-15); BUN 11 mg/dL (7-18); BUN/Creat Ratio 18.8 RATIO (10-20); Calcium,Total 8.6 mg/dL (8.5-10.1); Chloride 106 mmol/L (98-107); Creatinine, Serum 0.58 mg/dL (0.55-1.02); EST Glomerular Filtration Rate 106 mL/min (>60); Est Glom Filt Rate - Afr Amer 129 mL/min (>60); Estimated Creatinine Clearance 37.85 ml/min; Globulin 3.3 g/dL (2.2-4.2); Glucose 92 mg/dL (74-106); Potassium 3.6 mmol/L (3.5-5.1); Sodium Level 142 mmol/L (136-145)
[2021-06-28] MEDS: Aspirin E.C. 81 MG Tablet PO (08:07)
[2021-06-28] MEDS: 0.9% Normal Saline 1,000 ML 100 ML IV (10:42)
--- NOTE | 2021-06-28 11:10 | CASEMGMT ---
JAMIR BRANTLEY Face to Face with patient for initial transition planning/care coordination assessment. RN CM introduced self and role at [facility]. Patient lying in bed, alert and oriented. Patient willing to participate in assessment and is able to answer all questions appropriately. Care providers, pharmacy, and demographics verified. Patient wishes to discharge home, will monitor for HHC pending progress with therapy. Patient states she has no further needs or concerns at this time. CM to follow for discharge planning needs that may arise. PCP: [facility] Specialists: none Preferred Pharmacy: [facility] or [facility] Insurance: [employer] [facility] Prescription Benefit: yes Living Will/HPOA: yes, fer Winter HPOA LNOK: son Living Arrangements: Patient lives alone in a single story home with 4 steps to enter with railing. Patient states she is independent at home. Transportation: son, family DME/HHC: Patient states she has shower chair, cane, walker, rollator, and grab bars. Patient denies previous HHC or SNF. Disposition Plan: Patient to discharge home with family support and follow-up plans in place. Will monitor for HHC pending progress with therapy. Mayr SHRESTHA, RN, CM
--- NOTE | 2021-06-28 12:34 | PCM.PN.HOSP ---
Documented by User: Shimon REYNA 06/28/21 12:51 Subjective Subjective Patient is a 76-year-old female comfortably resting in bed, alert and orient x3. Patient reports mild improvement in her vertigo from admission, although still feels a little off. Denies chest pain, shortness of breath, palpitations, hemoptysis, sputum production, fever, chills, N/V/D. Objective Data Objective Data Vital Signs: Vital Signs Temp Pulse Resp BP Pulse Ox 97.9 F 46 L 16 142/65 H 96 06/28/21 08:00 06/28/21 10:43 06/28/21 08:00 06/28/21 10:43 06/28/21 08:00 Oxygen Delivery Method Room Air Weight: 222 lb 7.143 oz Body Mass Index (BMI) 40.6 Intake & Output: Intake and Output for Last 24 Hours 06/26/21 06/27/21 06/28/21 23:59 23:59 23:59 Intake Total 1300 / 1300 Balance 1300 / 1300 Lab / Micro Data Result Diagrams: 06/28/21 06:05 06/28/21 06:05 Labs: Laboratory Results - last 24 hr 06/27/21 16:00: WBC 10.0, RBC 4.45, Hgb 14.4, Hct 44.1, MCV 99.1 H, MCH 32.4 H, MCHC 32.7, RDW Std Deviation 46.6 H, RDW Coeff of Alexa 12.9, Plt Count 253, MPV 10.8, Immature Gran % (Auto) 0.500, Neut % (Auto) 74.0 H, Lymph % (Auto) 19.1, [place] % (Auto) 5.3, Eos % (Auto) 0.8, Baso % (Auto) 0.3, Absolute Neuts (auto) 7.4, Absolute Lymphs (auto) 1.90, Nucleated RBC % 0 06/27/21 16:00: Sodium 139, Potassium 4.3, Chloride 102, Carbon Dioxide 32.0, Anion Gap 5, BUN 11, Creatinine 0.66, Estim Creat Clear Calc 37.85, Est GFR (MDRD) Af Amer 111, Est GFR (MDRD) Non-Af 92, BUN/Creatinine Ratio 16.6, Glucose 108 H, Calcium 9.3, Total Bilirubin 1.10 H, AST 31, ALT 23, Alkaline Phosphatase 108, Troponin I High Sens 104.4 H*, Total Protein 7.1, Albumin 3.1 L, Globulin 4.0, Albumin/Globulin Ratio 0.8 L, Lipase 61 L 06/27/21 17:12: Urine Color Yellow, Urine Clarity Clear, Urine pH 7.0, Ur Specific [place] 1.010, Urine Protein Negative, Urine Glucose (UA) Normal, Urine Ketones Negative, Urine Occult Blood Negative, Urine Nitrite Negative, Urine Bilirubin Negative, Urine Urobilinogen Normal, Ur Leukocyte Esterase Negative, Urine RBC 0 SEEN, Urine WBC 0-5 SEEN, Ur Squamous Epith Cells 0 SEEN, Urine Bacteria 0 SEEN, Urine Mucus 0 SEEN 06/27/21 19:00: Magnesium 2.0 06/27/21 19:00: Troponin I High Sens 91.2 H* 06/27/21 22:05: Troponin I High Sens 109.2 H* 06/28/21 06:05: WBC 7.8, RBC 4.03 L, Hgb 13.1, Hct 39.9, MCV 99.0, MCH 32.5 H, MCHC 32.8, RDW Std Deviation 46.5 H, RDW Coeff of Alexa 12.8, Plt Count 209, MPV 10.9, Immature Gran % (Auto) 0.400, Neut % (Auto) 64.3, Lymph % (Auto) 25.6, [place] % (Auto) 7.9, Eos % (Auto) 1.4, Baso % (Auto) 0.4, Absolute Neuts (auto) 5.0, Absolute Lymphs (auto) 1.99, Nucleated RBC % 0 06/28/21 06:05: Sodium 142, Potassium 3.6, Chloride 106, Carbon Dioxide 31.0, Anion Gap 5, BUN 11, Creatinine 0.58, Estim Creat Clear Calc 37.85, Est GFR (MDRD) Af Amer 129, Est GFR (MDRD) Non-Af 106, BUN/Creatinine Ratio 18.8, Glucose 92, Calcium 8.6, Total Bilirubin 1.10 H, AST 19, ALT 19, Alkaline Phosphatase 90, Total Protein 6.0 L, Albumin 2.7 L, Globulin 3.3, Albumin/Globulin Ratio 0.8 L Radiography Diagnostic Testing: Radiology Impression Brain CT 06/27/21 17:47 IMPRESSION: Chronic involutional changes of the brain. No change or acute abnormality. Electronically Signed: Leeroy Schroeder MD at 19:05 EDT , Service support , Rhythm Strip Rhythm Strip: sinus bradycardia Rate: 45 Ectopy: None Physical Exam Const alert, oriented x3 and no apparent distress HEENT head/scalp atraumatic and moist oral mucous membranes Head and Scalp: normocephalic Eyes EOMs intact bilaterally and conjunctivae normal Neck no lymphadenopathy, supple and no JVD Resp normal respiratory effort, no retractions, no use of accessory muscles and clear to auscultation bilaterally Cardio regular rate, regular rhythm, no murmurs and no JVD GI normal to inspection, nondistended, normoactive bowel sounds, soft to palpation and non-tender Extremity normal to inspection, full ROM and no clubbing, cyanosis or edema Skin no rashes or lesions noted, no wounds, skin turgor normal and no jaundice Neuro CN's II-XII intact bilaterally Neuro Narrative: Patient reports mild improvement in her vertigo, although still reports feeling off. Psych affect normal Assessment & Plan Assessment/Plan (1) BPPV (benign paroxysmal positional vertigo): QUALIFIERS: Laterality: left Qualified Code(s): H81.12 - Benign paroxysmal vertigo, left ear (2) NSTEMI, initial episode of care: (3) Hyperlipidemia: (4) Hypertension: PLAN: Day 2: See subjective. Discharge planning: Patient to be discharged home when medically ready, no additional therapies or home health care needs identified. 1) NSTEMI High-sensitivity troponins elevated at 104.4, 91.2 and 109.2 respectively. TSH within normal limits. Patient denies any chest pain, heart palpitations, shortness of breath or lower extremity pain/swelling. Cardiology consult ordered,/pending. Plan; remain on PCU for cardiac telemetry monitoring, continue aspirin, beta-kaylen and statin. Morphine and nitroglycerin as needed. 2) vertigo/dizziness, possible benign paroxysmal positional vertigo Patient reports feeling improvement with her vertigo/dizziness with meclizine, however still feels off. Does not demonstrate any focal neurological deficits on exam and is alert and orient x3. Brain CT did not demonstrate any evidence of any intracranial abnormality. 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 Plan; continue meclizine and fall precautions. 3) hypertensive urgency Stable, hydralazine as needed. 4) hyperlipidemia Continue statin. 5) GERD Continue PPI. 6) morbid obesity Patient's weight is 222 pounds with a BMI of 40.7, Weight loss and therapeutic lifestyle changes encouraged. DVT prophylaxis - Lovenox and SCDs Patient seen by Shimon Nix PA-C, under the supervision of Dr. Saeed. Documented by User: Dr. Jose Alejandro Saeed MD 06/28/21 18:07 Objective Data Lab / Micro Data Result Diagrams: 06/28/21 06:05 06/28/21 06:05 Charges/Coding Addendum Addendum: Dr. Saeed: I personally reviewed the chart and examined the patient, and agree with the above findings. 76-year-old female presents from home with dizziness consistent with vertigo, she says that this is improved today. She denies any chest pain but she is says that she is short of breath but that is nothing new, especially with exertion. She did have a slightly elevated troponin 204.4, this is been fairly consistent today and likely related to the severe hypertension she had when she initially came into the hospital. Cardiology was consulted, an echo was obtained which did not display any wall motion abnormality, and her EF was normal. Medications were changed to help assist with her dizziness, her metoprolol is back down given her bradycardia and different medications were added, will continue to monitor and try to improve her blood pressure prior to discharge home. Visit Charges Inpatient E&M: 35608 Subs Hosp L2
--- NOTE | 2021-06-28 12:43 | CASEMGMT ---
According to the [facility] website, the following are in-network tertiary facilities: [facility], [facility], [facility], [facility], [facility], and . Angela BOWIE CM
[2021-06-28] MEDS: Lisinopril 20 MG Tablet PO (14:18)
[2021-06-28] MEDS: Pantoprazole Sodium 20 MG Tablet PO (14:19)
[2021-06-28] MEDS: Enoxaparin 40 MG/0.4 ML Syringe SC ×2 (14:19→21:57)
--- NOTE | 2021-06-28 15:27 | PCM.CONS.C ---
Assessment & Plan Assessment/Plan (1) Dizziness: PLAN: Patient does have evidence of orthostatic hypotension. Agree with holding the hydrochlorothiazide. Patient has bradycardia on current dose of metoprolol. It will be reasonable to decrease the metoprolol to 25 mg p.o. twice daily. Since we are decreasing the beta-kaylen and holding the hydrochlorothiazide will be reasonable to add amlodipine 5 mg p.o. daily. Patient may have a component of vertigo as well and I agree that it is reasonable to keep her on meclizine as well. (2) NSTEMI, initial episode of care: PLAN: Patient's troponin level is around 100 and has been stable at that level. No further cardiac work-up is required for this at this time. HPI Consult Data Date of Consult: 06/28/21 HPI Narrative HPI Narrative: AROLDO VARGAS, is a 76 F who presents with dizziness. Patient states that there are times when she feels like the room is spinning. She also states that when she gets up from a lying or sitting position she feels dizzy. From a lying position to a standing position her systolic blood pressure dropped about 24 mmHg. Patient has also been bradycardic on telemetry without any significant heart block or pauses greater than 3 seconds. Patient denies any chest pain or syncope. Review of systems: All systems reviewed. All else is negative except that in HPI. [facility] Medical History (Updated 06/28/21 @ 15:[address] Renzo Walker MD) HTN (hypertension) Hyperlipidemia Morbid obesity with BMI of 45.0-49.9, adult Home Medications metoprolol tartrate 200 mg PO DAILY 10/23/14 [History Last Taken 10/23/14 08:00] aspirin 81 mg PO DAILY@0800 #90 tablet 10/24/14 [Rx Last Taken Unknown] Systane (PF) 1 cap DAILY 06/27/21 [History Last Taken Unknown] calcium 500 mg PO DAILY 06/27/21 [History Last Taken Unknown] cholecalciferol (vitamin D3) [Vitamin D3] 50 mcg PO DAILY 06/27/21 [History Last Taken Unknown] docosahexaenoic acid-epa [Fish Oil (with DHA-EPA)] 1 cap PO DAILY 06/27/21 [History Last Taken Unknown] hydrochlorothiazide [HydroDiuril] 50 mg PO DAILY 06/27/21 [History Last Taken Unknown] rivastigmine tartrate 1.5 mg PO BID 06/27/21 [History Last Taken Unknown] Allergy/AdvReac Type Severity Reaction Status Date / Time No Known Allergies Allergy Verified 06/27/21 14:16 Family History Mother CVA (cerebral vascular accident) Hypertension Cancer Leukemia Father CVA (cerebral vascular accident) COPD (chronic obstructive pulmonary disease) Surgical History History of section Hx of cholecystectomy S/P tonsillectomy and adenoidectomy Social History household members: none Smoking Status: Never smoker alcohol intake: never substance use type: does not use Physical Exam Const alert and oriented x3 Orientation / Consciousness: awake HEENT normocephalic Eyes no scleral icterus Neck supple Resp normal respiratory effort Cardio regular rate Extremity no pedal edema Skin no rashes or lesions noted Neuro oriented x3 Psych mental status grossly normal Charges/Coding Visit Charges Inpatient E&M: 32656 Init Hosp L3 Objective Data Vital Signs: Vital Signs Temp Pulse Resp BP Pulse Ox 97.7 F L 49 L 16 189/63 H 96 06/28/21 14:00 06/28/21 14:00 06/28/21 14:00 06/28/21 14:00 06/28/21 14:00 Oxygen Delivery Method Room Air Weight: 222 lb 7.143 oz Body Mass Index (BMI) 40.6 Intake & Output: Intake and Output for Last 24 Hours 06/26/21 06/27/21 06/28/21 23:59 23:59 23:59 Intake Total 1540 / 1540 Balance 1540 / 1540 Lab / Micro Data Result Diagrams: 06/28/21 06:05 06/28/21 06:05 Labs: Laboratory Results - last 24 hr 06/27/21 16:00: WBC 10.0, RBC 4.45, Hgb 14.4, Hct 44.1, MCV 99.1 H, MCH 32.4 H, MCHC 32.7, RDW Std Deviation 46.6 H, RDW Coeff of Alexa 12.9, Plt Count 253, MPV 10.8, Immature Gran % (Auto) 0.500, Neut % (Auto) 74.0 H, Lymph % (Auto) 19.1, [place] % (Auto) 5.3, Eos % (Auto) 0.8, Baso % (Auto) 0.3, Absolute Neuts (auto) 7.4, Absolute Lymphs (auto) 1.90, Nucleated RBC % 0 06/27/21 16:00: Sodium 139, Potassium 4.3, Chloride 102, Carbon Dioxide 32.0, Anion Gap 5, BUN 11, Creatinine 0.66, Estim Creat Clear Calc 37.85, Est GFR (MDRD) Af Amer 111, Est GFR (MDRD) Non-Af 92, BUN/Creatinine Ratio 16.6, Glucose 108 H, Calcium 9.3, Total Bilirubin 1.10 H, AST 31, ALT 23, Alkaline Phosphatase 108, Troponin I High Sens 104.4 H*, Total Protein 7.1, Albumin 3.1 L, Globulin 4.0, Albumin/Globulin Ratio 0.8 L, Lipase 61 L 06/27/21 17:12: Urine Color Yellow, Urine Clarity Clear, Urine pH 7.0, Ur Specific [place] 1.010, Urine Protein Negative, Urine Glucose (UA) Normal, Urine Ketones Negative, Urine Occult Blood Negative, Urine Nitrite Negative, Urine Bilirubin Negative, Urine Urobilinogen Normal, Ur Leukocyte Esterase Negative, Urine RBC 0 SEEN, Urine WBC 0-5 SEEN, Ur Squamous Epith Cells 0 SEEN, Urine Bacteria 0 SEEN, Urine Mucus 0 SEEN 06/27/21 19:00: Magnesium 2.0 06/27/21 19:00: Troponin I High Sens 91.2 H* 06/27/21 22:05: Troponin I High Sens 109.2 H* 06/28/21 06:05: WBC 7.8, RBC 4.03 L, Hgb 13.1, Hct 39.9, MCV 99.0, MCH 32.5 H, MCHC 32.8, RDW Std Deviation 46.5 H, RDW Coeff of Alexa 12.8, Plt Count 209, MPV 10.9, Immature Gran % (Auto) 0.400, Neut % (Auto) 64.3, Lymph % (Auto) 25.6, [place] % (Auto) 7.9, Eos % (Auto) 1.4, Baso % (Auto) 0.4, Absolute Neuts (auto) 5.0, Absolute Lymphs (auto) 1.99, Nucleated RBC % 0 06/28/21 06:05: Sodium 142, Potassium 3.6, Chloride 106, Carbon Dioxide 31.0, Anion Gap 5, BUN 11, Creatinine 0.58, Estim Creat Clear Calc 37.85, Est GFR (MDRD) Af Amer 129, Est GFR (MDRD) Non-Af 106, BUN/Creatinine Ratio 18.8, Glucose 92, Calcium 8.6, Total Bilirubin 1.10 H, AST 19, ALT 19, Alkaline Phosphatase 90, Total Protein 6.0 L, Albumin 2.7 L, Globulin 3.3, Albumin/Globulin Ratio 0.8 L Rhythm Strip Rhythm Strip: sinus bradycardia Rate: 45 Ectopy: None Cardiology Labs/Tests 06/27/21 16:00: WBC 10.0, RBC 4.45, Hgb 14.4, Hct 44.1, MCV 99.1 H, MCH 32.4 H, MCHC 32.7, Plt Count 253, MPV 10.8, Immature Gran % (Auto) 0.500, Neut % (Auto) 74.0 H, Lymph % (Auto) 19.1, [place] % (Auto) 5.3, Eos % (Auto) 0.8, Baso % (Auto) 0.3, Absolute Neuts (auto) 7.4, Nucleated RBC % 0 06/27/21 16:00: Sodium 139, Potassium 4.3, Chloride 102, Carbon Dioxide 32.0, Anion Gap 5, BUN 11, Creatinine 0.66, Est GFR (MDRD) Af Amer 111, Est GFR (MDRD) Non-Af 92, BUN/Creatinine Ratio 16.6, Glucose 108 H, Calcium 9.3, Total Bilirubin 1.10 H 06/27/21 17:12: Urine Color Yellow, Urine Clarity Clear, Urine pH 7.0, Ur Specific [place] 1.010, Urine Protein Negative, Urine Glucose (UA) Normal, Urine Ketones Negative, Urine Occult Blood Negative, Urine Nitrite Negative, Urine Bilirubin Negative, Urine Urobilinogen Normal, Ur Leukocyte Esterase Negative, Urine RBC 0 SEEN, Urine WBC 0-5 SEEN 06/27/21 19:00: Magnesium 2.0 06/28/21 06:05: WBC 7.8, RBC 4.03 L, Hgb 13.1, Hct 39.9, MCV 99.0, MCH 32.5 H, MCHC 32.8, Plt Count 209, MPV 10.9, Immature Gran % (Auto) 0.400, Neut % (Auto) 64.3, Lymph % (Auto) 25.6, [place] % (Auto) 7.9, Eos % (Auto) 1.4, Baso % (Auto) 0.4, Absolute Neuts (auto) 5.0, Nucleated RBC % 0 06/28/21 06:05: Sodium 142, Potassium 3.6, Chloride 106, Carbon Dioxide 31.0, Anion Gap 5, BUN 11, Creatinine 0.58, Est GFR (MDRD) Af Amer 129, Est GFR (MDRD) Non-Af 106, BUN/Creatinine Ratio 18.8, Glucose 92, Calcium 8.6, Total Bilirubin 1.10 H Rhythm: EKG: ECHO: Stress Test: Cardiac Cath: PCI: CT Surgery: Holter monitor: EPS: PPM: CXR: Chest CT Scan: Radiography Diagnostic Testing: Radiology Impression Brain CT 06/27/21 17:47 IMPRESSION: Chronic involutional changes of the brain. No change or acute abnormality. Electronically Signed: Leeroy Schroeder MD at 19:05 EDT , Service support , Echocardiogram 06/27/21 20:02 Interpretation Summary The estimated ejection fraction is 60 %. Diastolic function is indeterminate. Trivial aortic valve insufficiency. Ordering Physician: Nehal English Referring Physician: EMILI PEREZ Performed By: Ynes Lyon, RDCS, RVT
[2021-06-28] MEDS: Atorvastatin Calcium 10 MG Tablet 5 MG PO (21:57)
[2021-06-28] MEDS: Metoprolol Tartrate 25 MG Tablet PO (22:01)
[2021-06-28] MEDS: amLODIPine 5 MG Tablet PO (22:02)
[2021-06-29] VITALS (7 sets, daily range): BP systolic 104–186; BP diastolic 61–89; PULSE 51–63; RESP 16–18; TEMP 36.7–36.8; O2SAT 95–100
[2021-06-29 07:14] LABS: Absolute Lymphocyte Count 2.12 X10^3/uL (0.83-4.51); Basophil# 0.03 X10^3/uL; Basophil% 0.4 % (0-1); Eosinophil# 0.15 X10^3/uL; Eosinophils% 1.9 % (0-5); Hematocrit 39.3 % (37-47); Hemoglobin 12.2 g/dL (12.0-15.0); Lymphocyte # 2.12 X10^3/ul (0.83-4.51); Mean Corpuscular Hgb 31.6 pg (27.0-32.0); Mean Corpuscular Volume 101.8 fL (81-99); Mean Platelet Vol. 10.9 fl (6.2-12.0); Monocyte# 0.56 X10^3/uL; Monocyte% 7.1 % (0-10); NRBC Flagged by Analyzer 0 % (0-5); Neutrophil # 4.98 X10^3/uL (2.7-7.7); Neutrophil % 63.3 % (47-70); Platelet Count 215 K/mm3 (150-450); RBC Distribution Width CV 12.9 % (11.6-14.6); RBC Distribution Width SD 48.3 fl (35.1-43.9); Red Blood Count 3.86 M/mm3 (4.2-5.4); White Blood Count 7.9 K/mm3 (4.4-11.0)
[2021-06-29 08:01] LABS: Anion Gap 5 (5-15); BUN 15 mg/dL (7-18); BUN/Creat Ratio 27.3 RATIO (10-20); Calcium,Total 8.5 mg/dL (8.5-10.1); Chloride 109 mmol/L (98-107); Creatinine, Serum 0.55 mg/dL (0.55-1.02); EST Glomerular Filtration Rate 114 mL/min (>60); Est Glom Filt Rate - Afr Amer 138 mL/min (>60); Estimated Creatinine Clearance 37.85 ml/min; Glucose 90 mg/dL (74-106); Potassium 3.7 mmol/L (3.5-5.1); Sodium Level 143 mmol/L (136-145)
[2021-06-29] MEDS: Aspirin E.C. 81 MG Tablet PO (08:06)
[2021-06-29] MEDS: Enoxaparin 40 MG/0.4 ML Syringe SC (09:30)
[2021-06-29] MEDS: amLODIPine 5 MG Tablet PO (09:30)
[2021-06-29] MEDS: Pantoprazole Sodium 20 MG Tablet PO (09:30)
[2021-06-29] MEDS: Metoprolol Tartrate 25 MG Tablet PO (09:30)
[2021-06-29] MEDS: Lisinopril 20 MG Tablet PO (09:30)
--- NOTE | 2021-06-29 10:50 | CASEMGMT ---
Addendum entered by Mary Reynoso 06/29/21 11:30: Call back from Betsy at [facility] and she states they can accept pt and will do start of care 06/30/21 or 07/01/21. Angela BOWIE CM Original Note: This RN CM to room to discuss discharge plan and pt/family are interested in [facility] PT/OT, decline need for SN. Pt provided with a list of [facility] providers including quality and resource use data and consistent with the patient?s preferred geographic region, medical needs, and insurance network. Pt/family state they would like [facility]. Order placed for PT/OT and message left with Betsy at [facility] in regards to referral and possible d/c today. CM to follow [facility] acceptance and for any further discharge planning/needs. Angela BOWIE CM
--- NOTE | 2021-06-29 11:15 | PCM.DC ---
Discharge Instructions Diet Discharge Diet: No restrictions Activity Discharge Activity: Return to Normal Activity Weight Bearing Status: Weight bearing as tolerated Dressing / Incision Call your doctor if you observe: Fever of 101 or Higher, Numbness or Tingling, Shortness of breath, Dizziness, Chest pain, Increased palpitations (irregular heartbeat) and Calf discomfort Follow Up Care Please Follow Up With: Primary care provider When: Within the next two weeks. Test Results: Test results from this visit will be discussed in further detail at your follow-up appointment, if applicable. Discharge Plan Admission Admit Date/Time: 06/27/21 18:59 Primary Reason for Your Visit: NSTEMI + Vertigo Attending Provider: Viv Mcfarland Primary Care Provider: Archie Givens Chi Consulting Providers: Renzo Walker Discharge Orders/Prescriptions Prescriptions: New metoprolol tartrate 25 mg tablet 25 mg PO BID Qty: 60 RF: 0 amlodipine 5 mg tablet 5 mg PO DAILY Qty: 30 RF: 0 meclizine 12.5 mg tablet 12.5 mg PO TID PRN (Reason: vertigo) Qty: 21 RF: 0 Continued aspirin 81 MG tablet 81 mg PO DAILY@0800 Qty: 90 RF: 0 rivastigmine tartrate 1.5 mg Capsule 1.5 mg PO BID RF: 0 calcium 500 mg Tablet 500 mg PO DAILY RF: 0 docosahexaenoic acid-epa Capsule 1 cap PO DAILY RF: 0 cholecalciferol (vitamin D3) [Vitamin D3] 50 mcg (2,000 unit) Capsule 50 mcg PO DAILY RF: 0 Systane (PF) 1 cap DAILY RF: 0 Discontinued metoprolol tartrate 100 MG tablet 200 mg PO DAILY RF: 0 hydrochlorothiazide [HydroDiuril] 50 mg Tablet 50 mg PO DAILY RF: 0 Referrals / Follow Up: Archie Givens Chi, MD [Primary Care Provider] - Within 2 Weeks Renzo Walker MD [STAFF PHYSICIAN] - Within 2 Weeks Disposition Disposition (needs filled in before D/C Order can be placed): Home, Self Care
--- NOTE | 2021-06-29 14:43 | PHA.DC.MR ---
Pharmacy Service has performed discharge medication reconciliation for this patient. The patient's discharge medication list was reviewed for discrepancies and discrepancies were resolved. Discharge medication education prepared. Patient discharged before I was able to commercial counsel. Home Medications aspirin 81 mg PO DAILY@0800 #90 tablet 10/24/14 Systane (PF) 1 cap DAILY 06/27/21 calcium 500 mg PO DAILY 06/27/21 cholecalciferol (vitamin D3) [Vitamin D3] 50 mcg PO DAILY 06/27/21 docosahexaenoic acid-epa 1 cap PO DAILY 06/27/21 rivastigmine tartrate 1.5 mg PO BID 06/27/21 amlodipine 5 mg PO DAILY #30 tab 06/29/21 meclizine 12.5 mg PO TID PRN #21 tab 06/29/21 metoprolol tartrate 25 mg PO BID #60 tab 06/29/21
--- NOTE | 2021-06-29 15:07 | DS.PCM_ITS ---
Documented by User: Shimon REYNA 06/29/21 15:17 Providers Date of Admission: 06/27/21 Primary Care Physician: Dr. Archie Givens MD Consultations 06/27/21 20:02 Consult: Cardiology Routine Consulting Provider: Renzo Walker Reason for Consult: NSTEMI EMERGENT Consult: No MD Notified: Yes Date Notified: 06/27/21 Time Notified: 18:59 Method of Notification: called per ED. Reason For Visit: NSTEMI, VERTIGO, HTN URGENCY Diagnosis Discharge Diagnosis (1) Dizziness: Status: Acute Code(s): R42 - Dizziness and giddiness (2) NSTEMI, initial episode of care: Status: Acute Code(s): I21.4 - Non-ST elevation (NSTEMI) myocardial infarction Medications at Discharge Home Medications aspirin 81 mg PO DAILY@0800 #90 tablet 10/24/14 Systane (PF) 1 cap DAILY 06/27/21 calcium 500 mg PO DAILY 06/27/21 cholecalciferol (vitamin D3) [Vitamin D3] 50 mcg PO DAILY 06/27/21 docosahexaenoic acid-epa 1 cap PO DAILY 06/27/21 rivastigmine tartrate 1.5 mg PO BID 06/27/21 amlodipine 5 mg PO DAILY #30 tab 06/29/21 meclizine 12.5 mg PO TID PRN #21 tab 06/29/21 metoprolol tartrate 25 mg PO BID #60 tab 06/29/21 Hospital Course Summary of Care Provided Minutes Spent on Discharge: 35 Hospital Course: Disposition: Patient to be discharged home, no home health care needs or additional therapies identified. 1) NSTEMI High-sensitivity troponins elevated at 104.4, 91.2 and 109.2 respectively. TSH within normal limits. Patient denies any chest pain, heart palpitations, shortness of breath or lower extremity pain/swelling. Cardiology following and recommends no additional work-up at this time with the following medication changes, decrease metoprolol to 25 mg p.o. twice daily, hold hydrochlorothiazide and initiate amlodipine 5 mg p.o. daily. Plan; discharge patient, follow medication recommendations as above. 2) vertigo/dizziness, possible benign paroxysmal positional vertigo Patient reports feeling improvement with her vertigo/dizziness with meclizine, however still feels off. Does not demonstrate any focal neurological deficits on exam and is alert and orient x3. Brain CT did not demonstrate any evidence of any intracranial abnormality. 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 Plan; meclizine continued on discharge p.o. 3 times daily x7 days as needed 3) hypertensive urgency Resolved, medication changes as above. 4) hyperlipidemia Continue statin. 5) GERD Continue PPI. 6) morbid obesity Patient's weight is 222 pounds with a BMI of 40.7, Weight loss and therapeutic lifestyle changes encouraged. Patient seen by Shimon Nix PA-C, under the supervision of Dr. Mcfarland. Physical Exam Const alert, oriented x3 and no apparent distress HEENT normocephalic, head/scalp atraumatic and hearing grossly normal bilaterally Eyes EOMs intact bilaterally and conjunctivae normal Neck no lymphadenopathy, supple and no JVD Resp normal respiratory effort, no retractions, no use of accessory muscles and clear to auscultation bilaterally Cardio regular rate, regular rhythm, no murmurs and no JVD GI normal to inspection, nondistended, normoactive bowel sounds, soft to palpation and non-tender Extremity normal to inspection, full ROM and no clubbing, cyanosis or edema Skin no rashes or lesions noted, no wounds and skin turgor normal Neuro CN's II-XII intact bilaterally Psych affect normal Weight / BMI Weight Weight: 222 lb 7.143 oz Body Mass Index (BMI) 40.6 ABG / Lab / Microbiology Data Result Diagrams: 06/29/21 06:30 06/29/21 06:30 Laboratory: Laboratory Results - last 24 hr 06/29/21 06:30: WBC 7.9, RBC 3.86 L, Hgb 12.2, Hct 39.3, MCV 101.8 H, MCH 31.6, MCHC 31.0 L D, RDW Std Deviation 48.3 H, RDW Coeff of Alexa 12.9, Plt Count 215, MPV 10.9, Immature Gran % (Auto) 0.300, Neut % (Auto) 63.3, Lymph % (Auto) 27.0, [place] % (Auto) 7.1, Eos % (Auto) 1.9, Baso % (Auto) 0.4, Absolute Neuts (auto) 5.0, Absolute Lymphs (auto) 2.12, Nucleated RBC % 0 06/29/21 06:30: Sodium 143, Potassium 3.7, Chloride 109 H, Carbon Dioxide 29.0, Anion Gap 5, BUN 15, Creatinine 0.55, Estim Creat Clear Calc 37.85, Est GFR (MDRD) Af Amer 138, Est GFR (MDRD) Non-Af 114, BUN/Creatinine Ratio 27.3 H, Glucose 90, Calcium 8.5 D/C Instructions Discharge Diet: No restrictions Weight Bearing Status: Weight bearing as tolerated Call your doctor if you observe: Fever of 101 or Higher, Numbness or Tingling, Shortness of breath, Dizziness, Chest pain, Increased palpitations (irregular heartbeat) and Calf discomfort Please Follow Up With: Primary care provider When: Within the next two weeks. Meaningful Use Info Meaningful Use Diagnoses (Choose all that apply): None applicable Discharge Plan Admission Admit Date/Time: 06/27/21 18:59 Primary Reason for Your Visit: Vertigo Attending Provider: Viv Mcfarland Primary Care Provider: Archie Givens Chi Consulting Providers: Renzo Walker Discharge Orders/Prescriptions Prescriptions: New metoprolol tartrate 25 mg tablet 25 mg PO BID Qty: 60 RF: 0 amlodipine 5 mg tablet 5 mg PO DAILY Qty: 30 RF: 0 meclizine 12.5 mg tablet 12.5 mg PO TID PRN (Reason: vertigo) Qty: 21 RF: 0 Continued aspirin 81 MG tablet 81 mg PO DAILY@0800 Qty: 90 RF: 0 rivastigmine tartrate 1.5 mg Capsule 1.5 mg PO BID RF: 0 calcium 500 mg Tablet 500 mg PO DAILY RF: 0 docosahexaenoic acid-epa Capsule 1 cap PO DAILY RF: 0 cholecalciferol (vitamin D3) [Vitamin D3] 50 mcg (2,000 unit) Capsule 50 mcg PO DAILY RF: 0 Systane (PF) 1 cap DAILY RF: 0 Discontinued metoprolol tartrate 100 MG tablet 200 mg PO DAILY RF: 0 hydrochlorothiazide [HydroDiuril] 50 mg Tablet 50 mg PO DAILY RF: 0 Referrals / Follow Up: Renzo Walker MD [STAFF PHYSICIAN] - Within 2 Weeks Archie Givens Chi, MD [Primary Care Provider] - Within 2 Weeks Disposition Disposition (needs filled in before D/C Order can be placed): Home, Self Care Documented by User: Dr. Viv Mcfarland DO 06/29/21 16:36 Providers Date of Admission: 06/27/21 Reason For Visit: NSTEMI, VERTIGO, HTN URGENCY Medications at Discharge Home Medications aspirin 81 mg PO DAILY@0800 #90 tablet 10/24/14 Systane (PF) 1 cap DAILY 06/27/21 calcium 500 mg PO DAILY 06/27/21 cholecalciferol (vitamin D3) [Vitamin D3] 50 mcg PO DAILY 06/27/21 docosahexaenoic acid-epa 1 cap PO DAILY 06/27/21 rivastigmine tartrate 1.5 mg PO BID 06/27/21 amlodipine 5 mg PO DAILY #30 tab 06/29/21 meclizine 12.5 mg PO TID PRN #21 tab 06/29/21 metoprolol tartrate 25 mg PO BID #60 tab 06/29/21 Hospital Course Procedures 2-D Echocardiogram Summary of Care Provided Minutes Spent on Discharge: 39 Hospital Course: This patient was seen in conjunction with MARIBELL Rosado. The following is representation of my independent history and physical examination. Please see below for addendum to the above. Mrs. William is a 76-year-old female who presented to the emergency department [facility] on 06/27/2021 with dizziness and nausea and vomiting. Upon presentation the patient reported that upon awaking she had dizziness that she described as the room spinning and this was associated with nausea as well as emesis. She reported that it was worse with inactivity and had a near syn copal episode prior to admission. At that time she became very diaphoretic and her family brought her to the emergency department. On admission she denied any chest discomfort or exertional dyspnea but did indicate she was not that active. Her admission vital signs were stable other than a blood pressure of 199/88. Her CBC was unremarkable. Her CMP was overall unremarkable. Her high-sensitiv ity troponin was elevated at 104 and her EKG showed nonspecific T wave inversions in lead III but no acute evidence of ischemia. In the emergency department she was given antihypertensives, full dose aspirin, meclizine, and Zofran and admitted to PCU for further evaluation. An echocardiogram was p erformed on 06/27/2021 and showed an EF of 60% with diastolic dysfunction and no regional wall motion abnormality. Cardiology was consulted and recommended discontinuing her hydrochlorothiazide as she had been orthostatic and decreasing her metoprolol to 25 mg twice a day but adding amlodipine 5 mg daily. She was discharged with these medication changes and instructed to follow-up with cardiology and her primary care physician. She was also discharged with meclizine for suspected BPPV. Per cardiology documentation her troponin was elevated but stable and with an echocardiogram they felt no further acute inpatient work-up was required at this time. Again she is to follow-up as an outpatient with cardiology. Her new prescriptions were faxed to her pharmacy and she was discharged in stable condition. Of note she may need further up titration of her antihypertensives but I would keep a close eye on her orthostasis. Discharge diagnoses: NSTEMI type II Hypertensive urgency Orthostatic hypotension Vertigo Hyperlipidemia GERD Vitamin D deficiency Morbid obesity Physical Exam Narrative Patient states she has had no further episodes of vertigo. Denies any shortness of breath or chest pain. States she is ready to go home. Const alert, oriented x3 and no apparent distress Constitutional Narrative: Older obese white female sitting up in bed, nursing at bedside, patient nontoxic, Appears well General Appearance: cooperative, comfortable, well kempt and well developed Nutritional Appearance: morbidly obese HEENT normocephalic, head/scalp atraumatic and moist oral mucous membranes Eyes PERRL, EOMs intact bilaterally and conjunctivae normal Neck no lymphadenopathy, supple and no JVD Resp normal respiratory effort, no retractions, no use of accessory muscles and clear to auscultation bilaterally Cardio regular rate, regular rhythm, S1 normal heart sound, S2 normal heart sound, no murmurs, no rub, no gallops, no clicks and no JVD GI normal to inspection, nondistended, normoactive bowel sounds, soft to palpation, non-tender and non-distended Extremity normal to inspection and no clubbing, cyanosis or edema Skin no rashes or lesions noted, no wounds, skin turgor normal and no jaundice Neuro oriented x3, CN's II-XII intact bilaterally and moves all extremities Sensorium / Orientation: awake, alert, oriented to person, oriented to place and oriented to time Speech: speech normal Motor Exam: strength 5/5 throughout Psych affect normal ABG / Lab / Microbiology Data Result Diagrams: 06/29/21 06:30 06/29/21 06:30 Discharge Plan Admission Admit Date/Time: 06/27/21 18:59 Primary Reason for Your Visit: Vertigo Attending Provider: Viv Mcfarland Primary Care Provider: Archie Givens Chi Consulting Providers: Renzo Walker Discharge Orders/Prescriptions Prescriptions: New metoprolol tartrate 25 mg tablet 25 mg PO BID Qty: 60 RF: 0 amlodipine 5 mg tablet 5 mg PO DAILY Qty: 30 RF: 0 meclizine 12.5 mg tablet 12.5 mg PO TID PRN (Reason: vertigo) Qty: 21 RF: 0 Continued aspirin 81 MG tablet 81 mg PO DAILY@0800 Qty: 90 RF: 0 rivastigmine tartrate 1.5 mg Capsule 1.5 mg PO BID RF: 0 calcium 500 mg Tablet 500 mg PO DAILY RF: 0 docosahexaenoic acid-epa Capsule 1 cap PO DAILY RF: 0 cholecalciferol (vitamin D3) [Vitamin D3] 50 mcg (2,000 unit) Capsule 50 mcg PO DAILY RF: 0 Systane (PF) 1 cap DAILY RF: 0 Discontinued metoprolol tartrate 100 MG tablet 200 mg PO DAILY RF: 0 hydrochlorothiazide [HydroDiuril] 50 mg Tablet 50 mg PO DAILY RF: 0 Referrals / Follow Up: Renzo Walker MD [STAFF PHYSICIAN] - Within 2 Weeks Archie Givens Chi, MD [Primary Care Provider] - Within 2 Weeks Disposition Disposition (needs filled in before D/C Order can be placed): Home, Self Care Charges/Coding Visit Charges Inpatient E&M: 14919 Disch Hosp
== END 2021-06-29 13:00 | disposition home health service (06) | DRG 281 ==
LOC: ED 16:05 → PCU 19:41
PROVIDERS: Physician Assistant; Admitting Provider Family Medicine; Emergency Provider Emergency Medicine; PCP Family Medicine Geriatric Medicine; Visit Provider Internal Medicine
DX: I21.A1 Myocardial infarction type 2 (principal); Z68.41 Body mass index [BMI] 40.0-44.9, adult; E66.01 Morbid (severe) obesity due to excess calories; E11.9 Type 2 diabetes mellitus without complications; I16.0 Hypertensive urgency; H81.12 Benign paroxysmal vertigo, left ear; E78.5 Hyperlipidemia, unspecified; K21.9 Gastro-esophageal reflux disease without esophagitis; E55.9 Vitamin D deficiency, unspecified; I10 Essential (primary) hypertension; I95.1 Orthostatic hypotension; Z79.899 Other long term (current) drug therapy; Z79.82 Long term (current) use of aspirin
CPT/HCPCS: 36415; 70450; 71045; 80048; 80053; 81001; 83690; 83735; 84484; 85025; 93005; 93306; 96361; 96372; 96374; 96375; 97162; 97166; 97530; 97535; 99218; 99251; 99285; J7030; Q9957; A4216; C8929; G0378; G0463; J2405; J3490

== ENCOUNTER → 2021-10-24 09:12 | Outpatient (CLI) | payer MEDICARE, SELFPAY ==
[2021-10-24 12:26] LABS: Absolute Lymphocyte Count 2.72 X10^3/uL (0.83-4.51); Absolute Neutrophil Count 4.6 X10^3/uL (2.0-7.7); Basophil# 0.04 X10^3/uL; Basophil% 0.5 % (0-1); Eosinophil# 0.15 X10^3/uL; Eosinophils% 1.8 % (0-5); Hematocrit 43.5 % (37-47); Hemoglobin 14.3 g/dL (12.0-15.0); Lymphocyte # 2.72 X10^3/ul (0.83-4.51); Lymphocyte % 33.5 % (19-41); Mean Corp Hgb Conc 32.9 g/dL (32-36); Mean Corpuscular Volume 94.2 fL (81-99); Mean Platelet Vol. 11.3 fl (6.2-12.0); Monocyte# 0.61 X10^3/uL; Monocyte% 7.5 % (0-10); NRBC Flagged by Analyzer 0 % (0-5); Neutrophil # 4.57 X10^3/uL (2.7-7.7); Neutrophil % 56.5 % (47-70); Platelet Count 264 K/mm3 (150-450); RBC Distribution Width CV 12.8 % (11.6-14.6); RBC Distribution Width SD 43.9 fl (35.1-43.9); Red Blood Count 4.62 M/mm3 (4.2-5.4); White Blood Count 8.1 K/mm3 (4.4-11.0)
[2021-10-24 12:37] LABS: Vitamin D,25 Hydroxy 37.7 ng/mL
[2021-10-24 12:48] LABS: ALB/GLOB Ratio 0.8 RATIO (0.9-2.4); AST(SGOT) 29 U/L (15-37); Alanine Aminotransfer ALT/SGPT 36 U/L (13-56); Albumin, Serum 3.3 g/dL (3.2-5.0); Alkaline Phosphatase 125 U/L (45-117); Anion Gap 8 (5-15); BUN 15 mg/dL (7-18); BUN/Creat Ratio 15.4 RATIO (10-20); Calcium,Total 9.5 mg/dL (8.5-10.1); Chloride 103 mmol/L (98-107); Creatinine, Serum 0.97 mg/dL (0.55-1.02); EST Glomerular Filtration Rate 59 mL/min (>60); Est Glom Filt Rate - Afr Amer 72 mL/min (>60); Globulin 4.1 g/dL (2.2-4.2); Glucose 104 mg/dL (74-106); Potassium 3.3 mmol/L (3.5-5.1); Protein, Total 7.4 g/dL (6.4-8.2); Sodium Level 142 mmol/L (136-145); Thyroid Stim Hormone (TSH) 2.52 uIU/mL (0.358-3.74)
== END ==
PROVIDERS: PCP Family Medicine Geriatric Medicine; Visit Provider Family Medicine Geriatric Medicine
DX: E55.9 Vitamin D deficiency, unspecified (principal); I10 Essential (primary) hypertension
CPT/HCPCS: 36415; 80053; 82306; 84443; 85025

== ENCOUNTER → 2022-05-17 | Outpatient (CLI) | payer MEDICARE, SELFPAY ==
[2022-05-17 12:44] LABS: ALB/GLOB Ratio 0.9 RATIO (0.9-2.4); AST(SGOT) 25 U/L (15-37); Alanine Aminotransfer ALT/SGPT 23 U/L (13-56); Albumin, Serum 3.2 g/dL (3.2-5.0); Alkaline Phosphatase 111 U/L (45-117); Anion Gap 7 (5-15); BUN 13 mg/dL (7-18); BUN/Creat Ratio 16.8 RATIO (10-20); Chloride 110 mmol/L (98-107); Cholesterol 214 mg/dL (200); Creatinine, Serum 0.77 mg/dL (0.55-1.02); EST Glomerular Filtration Rate 77 mL/min (>60); Est Glom Filt Rate - Afr Amer 93 mL/min (>60); Globulin 3.7 g/dL (2.2-4.2); Glucose 87 mg/dL (74-106); High Density Lipoprotein 44 mg/dL; Potassium 3.6 mmol/L (3.5-5.1); Protein, Total 6.9 g/dL (6.4-8.2); Sodium Level 143 mmol/L (136-145); Triglycerides 138 mg/dL; Very Low Density Lipoprotein 28 mg/dL (5-40)
[2022-05-17 12:53] LABS: Hemoglobin A1c 5.6 % (3.8-5.6)
[2022-05-17 16:55] LABS: Microalbumin:Creatinine Ratio 6.9 mg/g CRE (<30 mg/g CRE)
== END | disposition home or self-care (01) ==
LOC: MFPLAB 09:55
PROVIDERS: PCP Family Medicine Geriatric Medicine; Visit Provider Family Medicine
DX: E78.00 Pure hypercholesterolemia, unspecified (principal); I10 Essential (primary) hypertension; R73.01 Impaired fasting glucose
CPT/HCPCS: 36415; 80053; 80061; 82043; 82570; 83036

== ENCOUNTER 2022-07-22 10:32 | Observation (INO) | payer MEDICARE, SELFPAY ==
[2022-07-22] VITALS (13 sets, daily range): BP systolic 113–191; BP diastolic 56–98; PULSE 53–73; RESP 14–28; TEMP 36.3–36.8; O2SAT 94–98; BMI 37.8; BMI 38.4; BMI 36.5
--- NOTE | 2022-07-22 10:46 | EKG12_ITS ---
Test Reason : NEURO S/SX Blood Pressure : / mmHG Vent. Rate : 055 BPM Atrial Rate : 055 BPM P-R Int : 140 ms QRS Dur : 076 ms QT Int : 432 ms P-R-T Axes : 052 -07 018 degrees QTc Int : 413 ms Sinus bradycardia Otherwise normal ECG Confirmed by JESSICA SANDERS, LINDA ([id number]), scientific publications editor KENDAL MCKENNA ([id number]) on 07/25/2022 9:07:49 AM Referred By: Confirmed By:BALAJI LOPEZ MD
--- NOTE | 2022-07-22 10:46 | EDS_ITS ---
HPI History of Present Illness Chief Complaint: Neuro S/Sx Detail of Chief Complaint: Numbness entire left side of body upon awakening at 0600. Informant: patient Onset/Context/Timing Onset: - (Awoke with symptoms) Context: Sudden Onset Timing: Continuous Quality and Location: Positive for Left Face Parasthesia, Left Arm Parasthesia and Left Leg Parasthesia Onset: Awoke at 0600 with symptoms Current Severity: Mild Maximum Severity: Mild Worsened by: Nothing Relieved by: Nothing Associated Symptoms Associated Symptoms: Negative for Headache, Nausea, Vomiting or Chest Pain Narrative Narrative: Patient is a 77-year-old woman who went to bed at 10 PM last evening. Upon awakening at 0600 patient states she noted symptoms. Symptoms did not start after awakening. She denies headache. She denies double vision, blurred vision, loss of vision or change in vision. She denies ringing or ears or decreased hearing. She denies trouble with speech or swallowing. She denies cardiac or respiratory symptoms. She denies nausea or vomiting. She denies motor weakness. She denies problems with her balance. Prior similar symptoms: No Recent Illness/Hospitalization: No PFSH PFS Medical History Dizziness HTN (hypertension) Hyperlipidemia Morbid obesity with BMI of 45.0-49.9, adult NSTEMI, initial episode of group home Medications aspirin 81 mg tablet,delayed release 81 mg PO DAILY@0800 ##90 10/24/14 [Rx Last Taken Unknown] Systane (PF) 1 cap DAILY eyes 06/27/21 [History Last Taken Unknown] calcium 500 mg tablet 500 mg PO DAILY 06/27/21 [History Last Taken Unknown] cholecalciferol (vitamin D3) 50 mcg (2,000 unit) capsule (Vitamin D3) 50 mcg PO DAILY 06/27/21 [History Last Taken Unknown] docosahexaenoic acid (dha)-epa capsule 1 cap PO DAILY 06/27/21 [History Last Taken Unknown] rivastigmine tartrate 1.5 mg capsule 1.5 mg PO BID 06/27/21 [History Last Taken Unknown] amlodipine 5 mg tablet 5 mg PO DAILY #30 tabs 06/29/21 [Rx Last Taken Unknown] meclizine 12.5 mg tablet 12.5 mg PO TID PRN vertigo #21 tabs 06/29/21 [Rx Last Taken Unknown] metoprolol tartrate 25 mg tablet 25 mg PO BID #60 tabs 06/29/21 [Rx Last Taken Unknown] Allergy/AdvReac Type Severity Reaction Status Date / Time No Known Allergies Allergy Verified 07/22/22 10:33 Family History Mother CVA (cerebral vascular accident) Hypertension Cancer Leukemia Father CVA (cerebral vascular accident) COPD (chronic obstructive pulmonary disease) Surgical History History of section Hx of cholecystectomy S/P tonsillectomy and adenoidectomy Social History household members: none Smoking Status: Never smoker alcohol intake: never substance use type: does not use ROS ROS ED Constitutional Constitutional ED: Denies chills, fever(s), subjective, sweats or weakness Eyes Eyes: Denies blurry vision, change in vision or diplopia ENT ENT ED: Denies ear pain, rhinorrhea or sore throat Cardiovascular Cardiovascular: Denies chest pain, palpitations, paroxysmal nocturnal dyspnea or racing heartbeat Respiratory/Chest Respiratory/Chest: Denies cough, dyspnea, dyspnea on exertion or paroxysmal nocturnal dyspnea Gastrointestinal Gastrointestinal: Denies abdominal pain, nausea or vomiting Genitourinary Genitourinary ED: Denies dysuria, hematuria or urinary frequency Musculoskeletal Musculoskeletal: Denies arthralgias, back pain, myalgias or neck pain Neurologic Neurologic: Reports paresthesias; Denies headache(s) or weakness Psychiatric Psychiatric: Denies anxiety or depression Endocrine Endocrinology: Denies polydipsia, polyphagia or polyuria Hematologic/Lymphatic Hematologic/Lymphatic: Denies easy bleeding or easy bruising EXAM Physical Exam Const Vital Signs: 07/22/22 10:34 07/22/22 10:45 07/22/22 10:48 Temperature 97.5 F L Temperature Source Temporal Pulse Rate 62 62 Respiratory Rate 17 22 H Blood Pressure 191/98 H 166/95 H Blood Pressure Mean 129 118 Pulse Ox 96 94 95 Oxygen Delivery Method Room Air Room Air Room Air 07/22/22 10:48 07/22/22 11:23 07/22/22 11:30 Temperature Temperature Source Pulse Rate 59 L 58 L 53 L Respiratory Rate 16 14 28 H Blood Pressure 166/95 H 113/95 H 133/63 H Blood Pressure Mean 118 101 86 Pulse Ox 95 96 Oxygen Delivery Method Room Air Room Air Positive well nourished, well developed and obese General Appearance ED: well developed and NAD Nutritional Appearance: obese HEENT Reports moist mucous membranes atraumatic Nose: other Other Details: Ears normal. TMs normal. Nares patent. Uvula midline. No deviation tongue with protrusion. Posterior pharynx out erythema or exudate. Eyes PERRL and EOMs intact bilaterally Neck no lymphadenopathy, supple and no JVD Chest Wall inspection of chest normal and palpation of chest normal Resp normal respiratory effort and clear to auscultation bilaterally Cardio no murmurs Rate: regular rate Rhythm: regular rhythm and abnormal rhythm Heart Sounds: S1 normal and S2 normal GI normal to inspection, nondistended, normoactive bowel sounds, soft to palpation, non-tender, non-distended and no masses Auscultation: normoactive bowel sounds Back/Spine no CVA tenderness Cervical Spine: Negative for cervical spine tenderness Thoracic Spine / Upper Back: Negative for thoracic spinal tenderness Extremity normal to inspection General Extremety ED: Yes edema; Negative for deformity or tenderness General Extremity: edema; Negative for deformity Neuro oriented x3, CN's II-XII intact bilaterally and No no sensory deficits noted Sofia Coma Scale: document GCS findings Spontaneous Obeys Commands Oriented 15 Sensorium / Orientation: alert, oriented to person, oriented to place and oriented to time Motor Exam: strength 5/5 throughout Psych mental status grossly normal Skin no wounds General Skin Exam: Negative for jaundice Lesions: no lesions Rashes: no rashes NIHSS NIHSS Initial: 1a Level of Consciousness: 0 1b LOC Questions (Score 2 if aphasic/stupor): 0 1c LOC Commands (Only score 1st attempt): 0 2 Best Gaze (If aphasic, use reflexive mvmts.): 0 3 Visual: 0 4 Facial Palsy: 0 5 Motor Arm Right (UN = amputation/fusion): 0 5 Motor Arm Left: 0 6 Motor Leg Right: 0 6 Motor Leg Left: 0 7 Limb ataxia (Only + if out of proportion): 0 8 Sensory (Aphasia/stupor=0 or 1, coma=2): 1 9 Best Language: 0 10 Dysarthria (mute, coma=2, intubated=UN): 0 11 Extinction and Inattention (only scored if +): 0 Total Score: 1 MDM MDM MDM Narrative Medical decision making narrative: Presents with left-sided paresthesia. This is been present since awakening. Concern patient has a mild stroke. Stroke order set was initiated. Will allow for permissive hypertension since concern is stroke. Lab Data Attestation: I reviewed the patient's lab results. Lab results narrative: CBC is unremarkable. Coags unremarkable. Basic metabolic panel is unremarkable. Troponin is elevated. She is had elevated troponins in the past Labs: Laboratory Results - last 24 hr 07/22/22 07/22/22 07/22/22 10:45 10:45 10:45 WBC 8.5 RBC 4.84 Hgb 14.9 Hct 46.1 MCV 95.2 MCH 30.8 MCHC 32.3 RDW Std Deviation 44.7 H RDW Coeff of Alexa 12.8 Plt Count 235 MPV 11.1 Immature Gran % (Auto) 0.200 Neut % (Auto) 54.8 Lymph % (Auto) 34.3 [place] % (Auto) 7.4 Eos % (Auto) 2.8 Baso % (Auto) 0.5 Absolute Neuts (auto) 4.7 Absolute Lymphs (auto) 2.92 Nucleated RBC % 0 PT 12.4 INR 1.0 APTT 25.8 Sodium 142 Potassium 3.4 L Chloride 105 Carbon Dioxide 30.0 Anion Gap 7 BUN 15 Creatinine 0.84 Estim Creat Clear Calc 42.32 Est GFR (MDRD) Af Amer 84 Est GFR (MDRD) Non-Af 70 BUN/Creatinine Ratio 17.8 Glucose 132 H Calcium 9.6 Troponin I High Sens 185 H* Radiography Diagnostic Testing: Clinical Impression(s) from Imaging Studies Brain CT 07/22/22 10:46 IMPRESSION: 1. No acute intracranial abnormality. There has been no significant change from reference exam. 2. Stable underlying senescent changes with small vessel ischemia. 3. Aspects score 10. Electronically Signed: Jose Walter MD at 11:17 EDT , ADDENDUM: 07/22/22 1130 IMPRESSION: 1. No acute intracranial abnormality. There has been no significant change from reference exam. 2. Stable underlying senescent changes with small vessel ischemia. 3. Aspects score 10. N.B. : The above Results were Read Back by Jose Walter MD to Marcellus Ledbetter MD, MD, and understanding confirmed on 07/22/2022 11:23:36 (ET). Electronically Signed: Jose Walter MD at 11:17 EDT , Chest X-Ray 07/22/22 10:46 IMPRESSION: No radiographic evidence of acute cardiopulmonary disease. Electronically Signed: Jose Walter MD at 11:39 EDT , EKG Initial EKG: Attestation: I personally reviewed and interpreted this EKG as follows: Interpretation: Sinus Bradycardia (The EKG is normal other than the bradycardia cardia. Rate is 55. [place] interval 140 ms. QS duration 76 ms. QT duration 432 ms. [place] is normal.) Discharge Plan Dx/Rx/DC Orders Clinical Impression: Paresthesia of left arm and leg, Sinus bradycardia, History of hypertension Disposition Disposition: Acute Care Hospital [facility]
--- NOTE | 2022-07-22 10:46 | CT_ITS ---
We are attempting to reach an attending provider to discuss findings. An addendum with communication details will be sent when the communication is complete. EXAM: CT HEAD WITHOUT INTRAVENOUS CONTRAST CLINICAL INDICATION: Neuro deficit, acute, stroke suspected TECHNIQUE: Multiple axial images were obtained of the head without intravenous contrast. This CT exam was performed using one or more of the following dose reduction techniques: automated exposure control, adjustment of the mA and/or kV according to patient size, and/or use of iterative reconstruction technique. This report was created using Ecin[employer] report [employer]ar technology. COMPARISON: 06/27/2021 FINDINGS: BRAIN AND EXTRA-AXIAL SPACES: There is mild enlargement of the ventricular system and cortical sulci. There is hypoattenuation of the periventricular white matter. No intra- or extra-axial hemorrhage. No evidence of acute infarct. No intracranial mass or mass effect. There is preservation of the richardson/white matter interface. Posterior fossa structures are unremarkable. Basal cisterns are patent. BONES/JOINTS: Unremarkable. No discrete lytic or blastic abnormalities. SINUSES: Unremarkable as visualized. Clear. MASTOID AIR CELLS: Unremarkable. Clear. ORBITS: Visualized globes, extraocular muscles, optic nerves and retrobulbar fat appear unremarkable. CT/STROKE Brain/Head without Cont IMPRESSION: 1. No acute intracranial abnormality. There has been no significant change from reference exam. 2. Stable underlying senescent changes with small vessel ischemia. 3. Aspects score 10. Electronically Signed: Jose Walter MD at 11:17 EDT ,
--- NOTE | 2022-07-22 10:46 | RAD_ITS ---
EXAM: XR CHEST, 1 VIEW CLINICAL INDICATION: Neuro deficit, acute, stroke suspected TECHNIQUE: Frontal view of the chest. This report was created using IAMINTO[employer] report generation technology. COMPARISON: 06/27/2021. FINDINGS: LUNGS AND PLEURAL SPACES: Unremarkable. No consolidation or edema. No pneumothorax. No effusion. HEART: Unremarkable. Cardiac silhouette not enlarged. MEDIASTINUM: Central airways and mediastinal contour are unremarkable. BONES/JOINTS: Unremarkable. SOFT TISSUES: Unremarkable. RAD/Chest 1 View IMPRESSION: No radiographic evidence of acute cardiopulmonary disease. Electronically Signed: Jose Walter MD at 11:39 EDT ,
[2022-07-22 10:54] LABS: Absolute Lymphocyte Count 2.92 X10^3/uL (0.83-4.51); Absolute Neutrophil Count 4.7 X10^3/uL (2.0-7.7); Basophil# 0.04 X10^3/uL; Basophil% 0.5 % (0-1); Eosinophil# 0.24 X10^3/uL; Eosinophils% 2.8 % (0-5); Hematocrit 46.1 % (37-47); Hemoglobin 14.9 g/dL (12.0-15.0); Lymphocyte # 2.92 X10^3/ul (0.83-4.51); Lymphocyte % 34.3 % (19-41); Mean Corp Hgb Conc 32.3 g/dL (32-36); Mean Corpuscular Hgb 30.8 pg (27.0-32.0); Mean Corpuscular Volume 95.2 fL (81-99); Mean Platelet Vol. 11.1 fl (6.2-12.0); Monocyte# 0.63 X10^3/uL; Monocyte% 7.4 % (0-10); NRBC Flagged by Analyzer 0 % (0-5); Neutrophil # 4.66 X10^3/uL (2.7-7.7); Neutrophil % 54.8 % (47-70); Platelet Count 235 K/mm3 (150-450); RBC Distribution Width CV 12.8 % (11.6-14.6); RBC Distribution Width SD 44.7 fl (35.1-43.9); Red Blood Count 4.84 M/mm3 (4.2-5.4); White Blood Count 8.5 K/mm3 (4.4-11.0)
[2022-07-22 11:05] LABS: Prothrombin Time (Protime)PT. 12.4 SECONDS (11.7-14.9)
[2022-07-22 11:06] LABS: Partial Thromboplast Time 25.8 Seconds (24.1-36.2)
[2022-07-22 11:15] LABS: Anion Gap 7 (5-15); BUN 15 mg/dL (7-18); BUN/Creat Ratio 17.8 RATIO (10-20); Calcium,Total 9.6 mg/dL (8.5-10.1); Chloride 105 mmol/L (98-107); Creatinine, Serum 0.84 mg/dL (0.55-1.02); EST Glomerular Filtration Rate 70 mL/min (>60); Est Glom Filt Rate - Afr Amer 84 mL/min (>60); Estimated Creatinine Clearance 42.32 ml/min; Glucose 132 mg/dL (74-106); Potassium 3.4 mmol/L (3.5-5.1); Sodium Level 142 mmol/L (136-145); Troponin-I HS 185 pg/mL (3.0-54.0)
--- NOTE | 2022-07-22 11:50 | MRI_ITS ---
STUDY: MRI BRAIN WITHOUT CONTRAST REASON FOR EXAM: Female, 77 years old. TIA vs CVA, R facial, arm and leg numbness started last pm TECHNIQUE: Standardized multiplanar fat and water weighted pulse sequences were obtained. COMPARISON: Head CT dated July 22, 2022 FINDINGS: There is mild cerebral atrophy with widening of the extra-axial spaces and ventricular dilatation. There are a limited number of small white matter hyperintensities, distributed throughout the deep white matter tracts of the cerebral hemispheres, consistent with mild chronic white matter ischemic changes. There is no evidence for recent intracranial ischemia or other cause of cytotoxic edema on diffusion weighted imaging (DWI). Normal T2* images of the brain without demonstrated susceptibility artifact. There is no demonstrated hemosiderin stain. Normal bilateral basal ganglia. Normal thalami. There is no extra-axial fluid accumulation. Normal flow voids within the major intracranial circulation suggesting patency by spin echo criteria. Normal sella turcica, pituitary gland, infundibular stalk, optic chiasm and hypothalamus. Normal tectal plate and pineal gland. Normal midbrain, annamaria and medulla. Normal cerebellum. Normal basal cisterns. Normal bilateral temporal bones. Normal bilateral internal auditory canals. No demonstrated orbital abnormality, within the constraints of a routine brain study. Normal visualized paranasal sinuses. Normal calvarium and skull base. Normal visualized soft tissue structures. Normal visualized upper cervical spine. MRI/Brain without Contrast IMPRESSION: 1. Mild chronic ischemic and involutional changes of the brain, as described above. Electronically Signed: Raúl Gunn MD at 13:43 EDT ,
--- NOTE | 2022-07-22 11:51 | PCM.HP.STD ---
HPI - General General Date of Admission: 07/22/22 HPI Narrative AROLDO VARGAS, is a 77 F who presents hospital with left-sided numbness and tingling. No significant weakness but she went to bed last night normally and woke up this morning with the symptoms. She presented to the ER with NIH of 1, CT scan was unremarkable but she continues to have left-sided numbness of her face and arm as well as leg. [facility] Medical History (Updated 07/22/22 @ 13:51 by Estefani Juarez) Dementia Dizziness HTN (hypertension) Hyperlipidemia Morbid obesity with BMI of 45.0-49.9, adult Non-smoker NSTEMI, initial episode of care Stroke/cerebrovascular accident Vision loss of left eye Vision loss of right eye Home Medications aspirin 81 mg tablet,delayed release 81 mg PO DAILY@0800 ##90 10/24/14 [Rx Last Taken Unknown] Systane (PF) 1 cap DAILY eyes 06/27/21 [History Last Taken Unknown] calcium 500 mg tablet 500 mg PO DAILY 06/27/21 [History Last Taken Unknown] cholecalciferol (vitamin D3) 50 mcg (2,000 unit) capsule (Vitamin D3) 50 mcg PO DAILY 06/27/21 [History Last Taken Unknown] docosahexaenoic acid (dha)-epa capsule 1 cap PO DAILY 06/27/21 [History Last Taken Unknown] rivastigmine tartrate 1.5 mg capsule 1.5 mg PO BID 06/27/21 [History Last Taken Unknown] amlodipine 5 mg tablet 5 mg PO DAILY #30 tabs 06/29/21 [Rx Last Taken Unknown] metoprolol tartrate 25 mg tablet 25 mg PO BID #60 tabs 06/29/21 [Rx Last Taken Unknown] hydrochlorothiazide 25 mg tablet 25 mg PO DAILY 07/22/22 [History Last Taken Unknown] Allergy/AdvReac Type Severity Reaction Status Date / Time No Known Allergies Allergy Verified 07/22/22 10:33 Family History Mother CVA (cerebral vascular accident) Hypertension Cancer Leukemia Father CVA (cerebral vascular accident) COPD (chronic obstructive pulmonary disease) Surgical History History of section Hx of cholecystectomy S/P tonsillectomy and adenoidectomy Social History household members: none Smoking Status: Never smoker alcohol intake: never substance use type: does not use ROS Constitutional Constitutional: Denies chills, fatigue, fever(s) or malaise Eyes Eyes: Denies blurry vision ENT HEENT: Denies headache(s) or nasal discharge Cardiovascular Cardiovascular: Denies chest pain, dyspnea on exertion or syncope Respiratory/Chest Respiratory/Chest: Denies cough, shortness of breath at rest or shortness of breath with exertion Gastrointestinal Gastrointestinal: Denies constipation, diarrhea, nausea or vomiting Genitourinary Genitourinary: Denies dysuria Neurologic Neurologic: Reports numbness and paresthesias; Denies focal weakness or tremor(s) Psychiatric Psychiatric: Denies anxiety or depression Vital Signs Vital Signs Vital Signs: 07/22/22 10:34 07/22/22 10:45 07/22/22 10:48 Temperature 97.5 F L Temperature Source Temporal Pulse Rate 62 62 Respiratory Rate 17 22 H Blood Pressure 191/98 H 166/95 H Blood Pressure Mean 129 118 Pulse Ox 96 94 95 Oxygen Delivery Method Room Air Room Air Room Air 07/22/22 10:48 07/22/22 11:23 07/22/22 11:30 Temperature Temperature Source Pulse Rate 59 L 58 L 53 L Respiratory Rate 16 14 28 H Blood Pressure 166/95 H 113/95 H 133/63 H Blood Pressure Mean 118 101 86 Pulse Ox 95 96 Oxygen Delivery Method Room Air Room Air Weight Weight: 203 lb 7.787 oz Body Mass Index (BMI) 38.4 Physical Exam Narrative General: Alert, Oriented x3, Cooperative, No apparent distress HEENT: Atraumatic, PERRLA, EOMI, Normocephalic Oral: Moist Mucosa Neck: Supple, No JVD Lungs: Clear to auscultation, Normal air movement, No rhonchi, No wheeze, No rales Cardiovascular: Regular rate, Regular Rhythm, Normal S1, Normal S2, No murmurs Abdomen: Soft, Non Tender, Non-Distended, No Hepato-splenomegaly Extremities: No edema, Capillary Refill Less than 3 Seconds Skin: No rashes, No breakdown Musculoskeletal: No Tenderness to Palpation of Joints or Extremities Neurological: Cranial nerves II-XII grossly intact, Motor Exam 5/5 strength throughout, numbness and tingling in the left side of her face as well as decreased sensation in her left leg and left arm, NIH of 1 Psych/Mental Status: Normal Affect, Appropriate Results Lab / Micro Data Result Diagrams: 07/22/22 10:45 07/22/22 10:45 Labs: Laboratory Results - last 24 hr 07/22/22 10:45: WBC 8.5, RBC 4.84, Hgb 14.9, Hct 46.1, MCV 95.2, MCH 30.8, MCHC 32.3, RDW Std Deviation 44.7 H, RDW Coeff of Alexa 12.8, Plt Count 235, MPV 11.1, Immature Gran % (Auto) 0.200, Neut % (Auto) 54.8, Lymph % (Auto) 34.3, [place] % (Auto) 7.4, Eos % (Auto) 2.8, Baso % (Auto) 0.5, Absolute Neuts (auto) 4.7, Absolute Lymphs (auto) 2.92, Nucleated RBC % 0 07/22/22 10:45: PT 12.4, INR 1.0, APTT 25.8 07/22/22 10:45: Sodium 142, Potassium 3.4 L, Chloride 105, Carbon Dioxide 30.0, Anion Gap 7, BUN 15, Creatinine 0.84, Estim Creat Clear Calc 42.32, Est GFR (MDRD) Af Amer 84, Est GFR (MDRD) Non-Af 70, BUN/Creatinine Ratio 17.8, Glucose 132 H, Calcium 9.6, Troponin I High Sens 185 H* Radiology Impression Brain CT 07/22/22 10:46 IMPRESSION: 1. No acute intracranial abnormality. There has been no significant change from reference exam. 2. Stable underlying senescent changes with small vessel ischemia. 3. Aspects score 10. Electronically Signed: Jose Walter MD at 11:17 EDT , ADDENDUM: 07/22/22 4568 IMPRESSION: 1. No acute intracranial abnormality. There has been no significant change from reference exam. 2. Stable underlying senescent changes with small vessel ischemia. 3. Aspects score 10. N.B. : The above Results were Read Back by Jose Walter MD to Marcellus Ledbetter MD, MD, and understanding confirmed on 07/22/2022 11:23:36 (ET). Electronically Signed: Jose Walter MD at 11:17 EDT , Chest X-Ray 07/22/22 10:46 IMPRESSION: No radiographic evidence of acute cardiopulmonary disease. Electronically Signed: Jose Walter MD at 11:39 EDT , Assessment & Plan Assessment/Plan (1) Paresthesia of left arm and leg: PLAN: Plan 1. TIA versus CVA ? With her left-sided paresthesias, will obtain an MRI hopefully today ? Proceed with an echo ? Continue with her aspirin and will continue to monitor her NIH is ? We will place her on Lipitor 2. HTN/HLD ? We will hold her home antihypertensives for permissive hypertension ? We will continue with Lipitor per stroke protocol ? She is denying any chest pain or shortness of breath, her troponin is elevated however she has not had abnormal troponin since we have been checking them over the last 18 months. We will continue to monitor for any chest pain or shortness of breath DVT: Ambulation Charges/Coding Visit Charges OBSV E&M: 20669 Initial observation care L2
[2022-07-22] MEDS: Atorvastatin Calcium 80 MG Tablet PO (22:07)
[2022-07-23 02:00] VITALS: BP 148/80; PULSE 70; RESP 14; TEMP 36.6; O2SAT 96
[2022-07-23 03:00] VITALS: PULSE 63
[2022-07-23 04:20] VITALS: BMI 36.5
[2022-07-23 05:48] LABS: Absolute Lymphocyte Count 2.74 X10^3/uL (0.83-4.51); Absolute Neutrophil Count 5.2 X10^3/uL (2.0-7.7); Basophil# 0.06 X10^3/uL; Basophil% 0.7 % (0-1); Eosinophil# 0.21 X10^3/uL; Eosinophils% 2.4 % (0-5); Hematocrit 41.5 % (37-47); Hemoglobin 13.7 g/dL (12.0-15.0); Lymphocyte # 2.74 X10^3/ul (0.83-4.51); Lymphocyte % 30.8 % (19-41); Mean Corpuscular Hgb 31.3 pg (27.0-32.0); Mean Corpuscular Volume 94.7 fL (81-99); Monocyte# 0.66 X10^3/uL; Monocyte% 7.4 % (0-10); NRBC Flagged by Analyzer 0 % (0-5); Neutrophil # 5.21 X10^3/uL (2.7-7.7); Neutrophil % 58.5 % (47-70); Platelet Count 218 K/mm3 (150-450); RBC Distribution Width CV 12.8 % (11.6-14.6); RBC Distribution Width SD 45.1 fl (35.1-43.9); Red Blood Count 4.38 M/mm3 (4.2-5.4); White Blood Count 8.9 K/mm3 (4.4-11.0)
[2022-07-23 06:00] VITALS: BP 149/75; PULSE 74; RESP 16; TEMP 36.8; O2SAT 95
[2022-07-23 06:31] LABS: Anion Gap 6 (5-15); BUN 17 mg/dL (7-18); BUN/Creat Ratio 22.1 RATIO (10-20); Calcium,Total 9.1 mg/dL (8.5-10.1); Chloride 106 mmol/L (98-107); Cholesterol 202 mg/dL (200); Creatinine, Serum 0.77 mg/dL (0.55-1.02); EST Glomerular Filtration Rate 77 mL/min (>60); Est Glom Filt Rate - Afr Amer 94 mL/min (>60); Estimated Creatinine Clearance 37.26 ml/min; Glucose 108 mg/dL (74-106); High Density Lipoprotein 39 mg/dL; Potassium 3.4 mmol/L (3.5-5.1); Sodium Level 141 mmol/L (136-145); Triglycerides 144 mg/dL; Very Low Density Lipoprotein 29 mg/dL (5-40)
[2022-07-23 07:00] VITALS: PULSE 72
--- NOTE | 2022-07-23 07:00 | NURSING ---
all documentation completed by Rodrigo BOWIE reviewed by this RN
[2022-07-23 07:05] VITALS: O2SAT 95
[2022-07-23] MEDS: Aspirin E.C. 81 MG Tablet PO (08:46)
--- NOTE | 2022-07-23 09:51 | DS.PCM_ITS ---
Providers Date of Admission: 07/22/22 Primary Care Physician: Minda Hawkins, Reason For Visit: TIA VS CVA Diagnosis Discharge Diagnosis (1) Paresthesia of left arm and leg: Status: Acute Code(s): R20.2 - Paresthesia of skin Plan 1. TIA versus CVA ? With her left-sided paresthesias, will obtain an MRI hopefully today ? Proceed with an echo ? Continue with her aspirin and will continue to monitor her NIH is ? We will place her on Lipitor 2. HTN/HLD ? We will hold her home antihypertensives for permissive hypertension ? We will continue with Lipitor per stroke protocol ? She is denying any chest pain or shortness of breath, her troponin is elevated however she has not had abnormal troponin since we have been checking them over the last 18 months. We will continue to monitor for any chest pain or shortness of breath DVT: Ambulation Medications at Discharge Home Medications aspirin 81 mg tablet,delayed release 81 mg PO DAILY@0800 ##90 10/24/14 Systane (PF) 1 cap DAILY eyes 06/27/21 calcium 500 mg tablet 500 mg PO DAILY 06/27/21 cholecalciferol (vitamin D3) 50 mcg (2,000 unit) capsule (Vitamin D3) 50 mcg PO DAILY 06/27/21 docosahexaenoic acid (dha)-epa capsule 1 cap PO DAILY 06/27/21 rivastigmine tartrate 1.5 mg capsule 1.5 mg PO BID 06/27/21 amlodipine 5 mg tablet 5 mg PO DAILY #30 tabs 06/29/21 metoprolol tartrate 25 mg tablet 25 mg PO BID #60 tabs 06/29/21 hydrochlorothiazide 25 mg tablet 25 mg PO DAILY 07/22/22 atorvastatin 80 mg tablet 80 mg PO QHS #30 tabs 07/23/22 Hospital Course Operations None Procedures None Summary of Care Provided Minutes Spent on Discharge: 40 Hospital Course: Per HPI: AROLDO VARGAS, is a 77 F who presents hospital with left-sided numbness and tingling.? No significant weakness but she went to bed last night normally and woke up this morning with the symptoms.? She presented to the ER with NIH of 1, CT scan was unremarkable but she continues to have left-sided numbness of her face and arm as well as leg. Hospital Course: 1.? TIA versus CVA ? With her left-sided paresthesias ? Proceed with an echo ? Continue with her aspirin and will continue to monitor her NIH is ? We will place her on Lipitor ? MRI was unremarkable for any acute stroke, she does have chronic ischemic changes though based on her age. We will continue with Lipitor and her daily aspirin. Her paresthesias have essentially completely resolved. I discussed with her the plan for discharge today and she expressed understanding of the risk benefits of going home and would like to go home. I also discussed with her that unfortunately were unable to get the echo done yesterday and therefore it would not be done until Sunday, she elected to go home and have this done as an outpatient. I recommend that she follow-up with her PCP in 3 to 5 days to schedule this test. 2.? HTN/HLD ? We will hold her home antihypertensives for permissive hypertension ? We will continue with Lipitor per stroke protocol ? She is denying any chest pain or shortness of breath, her troponin is elevated however she has not had abnormal troponin since we have been checking them over the last 18 months.? We will continue to monitor for any chest pain or shortness of breath Physical Exam Narrative General: Alert, Oriented x3, Cooperative, No apparent distress HEENT: Atraumatic, PERRLA, EOMI, Normocephalic Oral: Moist Mucosa Neck: Supple, No JVD Lungs: Clear to auscultation, Normal air movement, No rhonchi, No wheeze, No rales Cardiovascular: Regular rate, Regular Rhythm, Normal S1, Normal S2, No murmurs Abdomen: Soft, Non Tender, Non-Distended, No Hepato-splenomegaly Extremities: No edema, Capillary Refill Less than 3 Seconds Skin: No rashes, No breakdown Musculoskeletal: No Tenderness to Palpation of Joints or Extremities Neurological: Cranial nerves II-XII grossly intact, Motor Exam 5/5 strength throughout, sensation equal on all extremities. NIH of 0 Psych/Mental Status: Normal Affect, Appropriate Weight / BMI Weight Weight: 199 lb 11.821 oz Body Mass Index (BMI) 36.5 ABG / Lab / Microbiology Data Result Diagrams: 07/23/22 04:58 07/23/22 04:58 Laboratory: Laboratory Results - last 24 hr 07/22/22 10:45: WBC 8.5, RBC 4.84, Hgb 14.9, Hct 46.1, MCV 95.2, MCH 30.8, MCHC 32.3, RDW Std Deviation 44.7 H, RDW Coeff of Alexa 12.8, Plt Count 235, MPV 11.1, Immature Gran % (Auto) 0.200, Neut % (Auto) 54.8, Lymph % (Auto) 34.3, [place] % (Auto) 7.4, Eos % (Auto) 2.8, Baso % (Auto) 0.5, Absolute Neuts (auto) 4.7, Absolute Lymphs (auto) 2.92, Nucleated RBC % 0 07/22/22 10:45: PT 12.4, INR 1.0, APTT 25.8 07/22/22 10:45: Sodium 142, Potassium 3.4 L, Chloride 105, Carbon Dioxide 30.0, Anion Gap 7, BUN 15, Creatinine 0.84, Estim Creat Clear Calc 42.32, Est GFR (MDRD) Af Amer 84, Est GFR (MDRD) Non-Af 70, BUN/Creatinine Ratio 17.8, Glucose 132 H, Calcium 9.6, Troponin I High Sens 185 H* 07/23/22 04:58: WBC 8.9, RBC 4.38, Hgb 13.7, Hct 41.5, MCV 94.7, MCH 31.3, MCHC 33.0, RDW Std Deviation 45.1 H, RDW Coeff of Alexa 12.8, Plt Count 218, MPV 11.0, Immature Gran % (Auto) 0.200, Neut % (Auto) 58.5, Lymph % (Auto) 30.8, [place] % (Auto) 7.4, Eos % (Auto) 2.4, Baso % (Auto) 0.7, Absolute Neuts (auto) 5.2, Absolute Lymphs (auto) 2.74, Nucleated RBC % 0 07/23/22 04:58: Sodium 141, Potassium 3.4 L, Chloride 106, Carbon Dioxide 29.0, Anion Gap 6, BUN 17, Creatinine 0.77, Estim Creat Clear Calc 37.26, Est GFR (MDRD) Af Amer 94, Est GFR (MDRD) Non-Af 77, BUN/Creatinine Ratio 22.1 H, Glucose 108 H, Calcium 9.1, Triglycerides 144, Cholesterol 202 H, LDL Cholesterol 134 H, VLDL Cholesterol 29, HDL Cholesterol 39 L Radiography Diagnostic Testing: Radiology Impression Brain CT 07/22/22 10:46 IMPRESSION: 1. No acute intracranial abnormality. There has been no significant change from reference exam. 2. Stable underlying senescent changes with small vessel ischemia. 3. Aspects score 10. Electronically Signed: Jose Walter MD at 11:17 EDT , ADDENDUM: 07/22/22 1130 IMPRESSION: 1. No acute intracranial abnormality. There has been no significant change from reference exam. 2. Stable underlying senescent changes with small vessel ischemia. 3. Aspects score 10. N.B. : The above Results were Read Back by Jose Walter MD to Marcellus Ledbetter MD, MD, and understanding confirmed on 07/22/2022 11:23:36 (ET). Electronically Signed: Jose Walter MD at 11:17 EDT , Chest X-Ray 07/22/22 10:46 IMPRESSION: No radiographic evidence of acute cardiopulmonary disease. Electronically Signed: Jose Walter MD at 11:39 EDT , Brain MRI 07/22/22 11:50 IMPRESSION: 1. Mild chronic ischemic and involutional changes of the brain, as described above. Electronically Signed: Raúl Gunn MD at 13:43 EDT , D/C Instructions Discharge Diet: Low fat / Low cholesterol Call your doctor if you observe: Fever of 101 or Higher, Shortness of breath, Dizziness, Fainting spells, Swelling in the ankles, Chest pain and Increased palpitations (irregular heartbeat) Meaningful Use Info Meaningful Use Diagnoses (Choose all that apply): None applicable Discharge Plan Admission Admit Date/Time: 07/22/22 11:48 Attending Provider: Jose Alejandro Saeed Primary Care Provider: Minda Hawkins Discharge Orders/Prescriptions Prescriptions: New atorvastatin 80 mg Tablet 80 mg PO QHS Qty: 30 0RF Continued aspirin 81 MG tablet 81 mg PO DAILY@0800 Qty: 90 0RF Label Comments: blood thinner/heart health rivastigmine tartrate 1.5 mg Capsule 1.5 mg PO BID calcium 500 mg Tablet 500 mg PO DAILY docosahexaenoic acid-epa Capsule 1 cap PO DAILY cholecalciferol (vitamin D3) [Vitamin D3] 50 mcg (2,000 unit) Capsule 50 mcg PO DAILY Systane (PF) 1 cap DAILY metoprolol tartrate 25 mg tablet 25 mg PO BID Qty: 60 0RF amlodipine 5 mg tablet 5 mg PO DAILY Qty: 30 0RF hydrochlorothiazide 25 mg tablet 25 mg PO DAILY Label Comments: take 1 tablet by mouth once daily Referrals / Follow Up: Minda Hawkins DO [Primary Care Provider] - Within 1 Week Disposition Disposition (needs filled in before D/C Order can be placed): Home, Self Care Charges/Coding Visit Charges OBSV E&M: 08125 Observation care discharge
[2022-07-23 10:00] VITALS: BP 143/72; PULSE 73; RESP 16; TEMP 36.6; O2SAT 96
== END 2022-07-23 09:51 | disposition home or self-care (01) ==
LOC: ED 12:10 → PCU 12:31
PROVIDERS: Admitting Provider Family Medicine; Emergency Provider Emergency Medicine; PCP Family Medicine; Visit Provider Family Medicine
DX: R20.2 Paresthesia of skin (principal); F03.90 Unspecified dementia, unspecified severity, without behavioral disturbance, psychotic disturbance, mood disturbance, and anxiety; E66.01 Morbid (severe) obesity due to excess calories; R00.1 Bradycardia, unspecified; R29.701 NIHSS score 1; I10 Essential (primary) hypertension; Z79.82 Long term (current) use of aspirin; E78.5 Hyperlipidemia, unspecified; Z79.899 Other long term (current) drug therapy; Z68.38 Body mass index [BMI] 38.0-38.9, adult; I25.2 Old myocardial infarction
CPT/HCPCS: 36415; 70450; 70551; 71045; 80048; 80061; 84484; 85025; 85610; 85730; 92523; 93005; 94762; 97162; 97165; 97802; 99218; 99285; G0378

== ENCOUNTER → 2023-11-05 | Outpatient (CLI) | payer MEDICARE, SELFPAY ==
[2023-11-05 16:02] LABS: Microalbumin:Creatinine Ratio 16.6 mg/g CRE (<30 mg/g CRE)
[2023-11-05 16:33] LABS: ALB/GLOB Ratio 0.9 RATIO (0.9-2.4); AST(SGOT) 23 U/L (15-37); Alanine Aminotransfer ALT/SGPT 18 U/L (13-56); Albumin, Serum 3.4 g/dL (3.2-5.0); Alkaline Phosphatase 118 U/L (45-117); Anion Gap 5 (5-15); BUN 13 mg/dL (7-18); BUN/Creat Ratio 15.6 RATIO (10-20); Calcium,Total 9.1 mg/dL (8.5-10.1); Chloride 110 mmol/L (98-107); Cholesterol 216 mg/dL (200); Creatinine, Serum 0.83 mg/dL (0.55-1.02); EST Glomerular Filtration Rate 70 mL/min (>60); Est Glom Filt Rate - Afr Amer 85 mL/min (>60); Globulin 3.8 g/dL (2.2-4.2); Glucose 98 mg/dL (74-106); High Density Lipoprotein 52 mg/dL; Potassium 4.1 mmol/L (3.5-5.1); Protein, Total 7.2 g/dL (6.4-8.2); Sodium Level 144 mmol/L (136-145); Triglycerides 98 mg/dL; Very Low Density Lipoprotein 20 mg/dL (5-40)
== END | disposition home or self-care (01) ==
LOC: MFPLAB 11:31
PROVIDERS: PCP Family Medicine; Visit Provider Family Medicine
DX: R73.9 Hyperglycemia, unspecified (principal); E78.2 Mixed hyperlipidemia; I10 Essential (primary) hypertension
CPT/HCPCS: 36415; 80053; 80061; 82043; 82570; 83036

== ENCOUNTER 2023-11-29 12:14 | Emergency (ER) | payer MEDICARE, SELFPAY ==
[2023-11-29] VITALS (7 sets, daily range): BP systolic 158–190; BP diastolic 72–104; PULSE 54–78; RESP 18; TEMP 36.6; O2SAT 96–99; BMI 40.0
--- NOTE | 2023-11-29 12:17 | CT_ITS ---
STUDY: CTA HEAD AND NECK WITH CONTRAST REASON FOR EXAM: Female, 78 years old. Neuro deficit, acute, stroke suspected RADIATION DOSAGE (If Supplied By Facility): CTDIvol = ( 21.36 ) mGy, DLP = ( 587.14 ) mGycm TECHNIQUE: CT angiography was performed with a multi-detector CT scanner. Data acquisition was obtained from the skull base through the vertex following intravenous administration of IV 100mL [id number]-[id number]. MIP images were reconstructed from the axial data set. Post-processing of the angiographic images was performed, with multiplanar reformation and 3D reconstruction. Individualized dose optimization techniques were used for this CT. COMPARISON: No relevant priors. FINDINGS: Normal bilateral petrous carotid arteries. Normal left cavernous carotid artery with a normal supraclinoid bifurcation. Normal right A1 segments of the anterior cerebral artery. Normal left A1 segments of the anterior cerebral artery. Normal intact anterior communicating artery (ACOM). Normal bilateral A2 segments of the anterior cerebral arteries. Nonvisualization of the right middle cerebral artery. Normal left M1 and M2 segments of the middle cerebral arteries, with a normal M1 bifurcation. Normal right posterior communicating artery (PCOM). Normal left posterior communicating artery (PCOM). Normal bilateral vertebral arteries. Normal basilar artery with a normal basilar bifurcation. The visualized bilateral superior cerebellar (SCA) arteries are normal. Normal bilateral P1, P2 and visualized P3 segments of the posterior cerebral arteries. There is no demonstrated aneurysm of the [place]. AORTIC ARCH: There is atherosclerotic calcific plaque formation of the aortic arch and great vessels arising from the aortic arch, without a hemodynamically significant stenosis. There is a normal origin of the brachiocephalic, left common carotid, and left subclavian arteries. RIGHT CAROTID ARTERIES: Normal right common carotid artery (CCA). Normal right common carotid bulb. There is moderate atherosclerotic plaque formation of the origin of the right internal carotid artery with an estimated stenosis of 50-69% stenosis. 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 Normal origin of the right external carotid artery (ECA). LEFT CAROTID ARTERIES: Normal left common carotid artery (CCA). Normal left common carotid bulb. There is mild atherosclerotic plaque formation of the origin of the left internal carotid artery with less than 50% cross sectional diameter stenosis. Normal visualized cervical portion of the left internal carotid artery. Normal origin of the left external carotid artery (ECA). VERTEBRAL ARTERIES: Normal bilateral vertebral arteries. Heterogeneous enlargement of the isthmus and right lobe of the thyroid. Small hypodensities are seen in the left lobe of the thyroid. 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 Nonvisualization of the right middle cerebral arteries. Calcific plaques at the origin of the right and left internal carotid arteries. N.B. : The above Results were Read Back by Mark Smith MD to Dr Anatoly MD, and understanding confirmed on 11/29/2023 12:49:59 (ET). Electronically Signed: Mark Smith MD at 12:51 EST ,
--- NOTE | 2023-11-29 12:17 | EKG12_ITS ---
Test Reason : STROKE Blood Pressure : / mmHG Vent. Rate : 073 BPM Atrial Rate : 073 BPM P-R Int : 130 ms QRS Dur : 078 ms QT Int : 418 ms P-R-T Axes : 029 018 011 degrees QTc Int : 460 ms Normal sinus rhythm Normal ECG Confirmed by BHUPINDER SANDERS, LORETTA ([id number]), notch grinder KENDAL MCKENNA ([id number]) on 11/30/2023 7:15:18 AM Referred By: Confirmed By:LORETTA ROE MD
--- NOTE | 2023-11-29 12:17 | CT_ITS ---
STUDY: CT HEAD STROKE PROTOCOL W/O CONTRAST INJECTION REASON FOR EXAM: Female, 78 years old. Neuro deficit, acute, stroke suspected RADIATION DOSAGE (If Supplied By Facility): CTDIvol = ( 44.99 ) mGy, DLP = ( 779.24 ) mGycm TECHNIQUE: Transaxial CT imaging of the brain was performed without administration of intravenous contrast material. Individualized dose optimization techniques were used for this CT. COMPARISON: No relevant priors. FINDINGS: Normal soft tissue structures. Normal calvarium. There is mild cerebral atrophy with widening of the extra-axial spaces and ventricular dilatation. There are areas of decreased attenuation within the white matter tracts of the supratentorial brain, consistent with microvascular disease changes. Hyperdense right middle cerebral artery with a thrombus. Decreased attenuation in the right frontoparietal lobe with evolving infarct. Decreased attenuation in the left basal ganglia. Normal brainstem. Normal cerebellum. There is no intracranial hemorrhage. Mucosal thickening of the maxillary sinuses. CT/STROKE Brain/Head without Cont IMPRESSION: Hyperdense right middle cerebral artery with corresponding changes in the right frontal parietal lobes and basal ganglia on the right side. N.B. : The above Results were Read Back by Mark Smith MD to [facility] and understanding confirmed on 11/29/2023 12:31:16 (ET). Electronically Signed: Mark Smith MD at 12:32 EST ,
--- NOTE | 2023-11-29 12:26 | ED.VIS.STROK ---
HPI History of Present Illness Chief Complaint: Stroke Alert Detail of Chief Complaint: On ground facial droop, abnormal speech Informant: patient, family and EMS Onset/Context/Timing Onset: - (No results to 100 November 28 per daughter) Context: - (Presumed sudden) Timing: Continuous Quality and Location: Positive for Left Facial Droop, Left Arm Weakness, Left Leg Weakness, Slurred Speech and Difficulty with Ambulation Onset: Last known well November 28 at 2100 Current Severity: Severe Maximum Severity: Severe Worsened by: Unknown Relieved by: Nothing Narrative Narrative: Patient is a 78-year-old woman with history of mild dementia, hypertension, hypercholesterolemia who was in her normal state of health November 28 at 2100. Daughter was with her/spoke with her. This morning she was found on the floor with garbled speech and unable to move her left side. She also had a facial droop. Prior similar symptoms: No PFSH PFS Medical History Dementia Dizziness History of hypertension HTN (hypertension) Hyperlipidemia Morbid obesity with BMI of 45.0-49.9, adult Non-smoker NSTEMI, initial episode of care Sinus bradycardia Stroke/cerebrovascular accident Vision loss of left eye Vision loss of right eye Home Medications aspirin 81 mg tablet,delayed release 81 mg PO DAILY@0800 ##90 10/24/14 [Rx Last Taken Unknown] Systane (PF) 1 cap DAILY eyes 06/27/21 [History Last Taken Unknown] calcium 500 mg tablet 500 mg PO DAILY 06/27/21 [History Last Taken Unknown] cholecalciferol (vitamin D3) 50 mcg (2,000 unit) capsule (Vitamin D3) 50 mcg PO DAILY 06/27/21 [History Last Taken Unknown] docosahexaenoic acid (dha)-epa capsule 1 cap PO DAILY 06/27/21 [History Last Taken Unknown] rivastigmine tartrate 1.5 mg capsule 1.5 mg PO BID 06/27/21 [History Last Taken Unknown] amlodipine 5 mg tablet 5 mg PO DAILY #30 tabs 06/29/21 [Rx Last Taken Unknown] metoprolol tartrate 25 mg tablet 25 mg PO BID #60 tabs 06/29/21 [Rx Last Taken Unknown] hydrochlorothiazide 25 mg tablet 25 mg PO DAILY 07/22/22 [History Last Taken Unknown] atorvastatin 80 mg tablet 80 mg PO QHS #30 tabs 07/23/22 [Rx Last Taken Unknown] Allergy/AdvReac Type Severity Reaction Status Date / Time No Known Allergies Allergy Verified 11/29/23 12:56 Family History Mother CVA (cerebral vascular accident) Hypertension Cancer Leukemia Father CVA (cerebral vascular accident) COPD (chronic obstructive pulmonary disease) Surgical History History of section Hx of cholecystectomy S/P tonsillectomy and adenoidectomy Social History household members: none Smoking Status: Never smoker alcohol intake: never substance use type: does not use ROS ROS ED Review of Systems ROS Unobtainable: due to mental status EXAM Physical Exam Const Vital Signs: 11/29/23 12:18 11/29/23 12:15 Temperature 97.9 F 98 F Temperature Source Temporal Temporal Pulse Rate 78 69 Respiratory Rate 18 18 Blood Pressure 190/102 H 158/76 H Blood Pressure Mean 131 103 Pulse Ox 96 99 Oxygen Delivery Method Room Air Room Air Positive well nourished, obese and unkempt General Appearance ED: unkempt Nutritional Appearance: obese HEENT Reports dry mucous membranes trauma; Negative for atraumatic Mouth ED: Yes dry mucous membranes Mouth: dry mucous membranes Eyes PERRL; Negative for EOMs intact bilaterally Eyes Narrative: Forced deviation of eyes to the right Neck no lymphadenopathy, supple and no JVD Chest Wall inspection of chest normal and palpation of chest normal Resp normal respiratory effort and clear to auscultation bilaterally Cardio no murmurs Rate: regular rate Rhythm: regular rhythm GI normal to inspection, nondistended, normoactive bowel sounds, soft to palpation, non-tender, non-distended and no masses Extremity General Extremety ED: Yes edema; Negative for deformity or tenderness General Extremity: edema; Negative for deformity Neuro No oriented x3, No CN's II-XII intact bilaterally and No no sensory deficits noted Sofia Coma Scale: document GCS findings To Voice Obeys Commands Confused 13 Sensorium / Orientation: Negative for alert Speech: Negative for speech normal Gait (Neuro): Negative for normal gait Psych mental status grossly normal Appearance: unkempt Skin Skin Narrative: Contusion left extremities NIHSS NIHSS Initial: 1a Level of Consciousness: 1 1b LOC Questions (Score 2 if aphasic/stupor): 2 1c LOC Commands (Only score 1st attempt): 0 2 Best Gaze (If aphasic, use reflexive mvmts.): 2 4 Facial Palsy: 2 5 Motor Arm Right (UN = amputation/fusion): 0 5 Motor Arm Left: 3 6 Motor Leg Right: 0 6 Motor Leg Left: 4 7 Limb ataxia (Only + if out of proportion): UN 8 Sensory (Aphasia/stupor=0 or 1, coma=2): 0 9 Best Language: 3 10 Dysarthria (mute, coma=2, intubated=UN): 2 Total Score: 19 Follow up: 1a Level of Consciousness: 1 1b LOC Questions (Score 2 if aphasic/stupor): 1 1c LOC Commands (Only score 1st attempt): 0 2 Best Gaze (If aphasic, use reflexive mvmts.): 2 3 Visual: 0 4 Facial Palsy: 2 5 Motor Arm Right (UN = amputation/fusion): 0 5 Motor Arm Left: 3 6 Motor Leg Right: 0 6 Motor Leg Left: 2 7 Limb ataxia (Only + if out of proportion): 0 8 Sensory (Aphasia/stupor=0 or 1, coma=2): 1 10 Dysarthria (mute, coma=2, intubated=UN): 1 11 Extinction and Inattention (only scored if +): 1 Total Score: 14 MDM MDM MDM Narrative Medical decision making narrative: Patient patient was met in the ambulance bay. Patient has findings consistent with a LVO. Also need to rule out intracranial bleed since she was found on the floor. Patient has either a large vessel or collusion on the right side since her eyes are deviated to the left or she has a hemorrhage on the left side. Stroke order set was initiated with CTA. Unenhanced scan revealed no evidence of intracranial bleed. CTA reveals LVO right middle cerebral artery. Case discussed with [facility]. Service and transfer line. They have excepted transfer. Arrangements have been made for helicopter transport to [facility] since her symptoms started less than 24 hours ago. This was discussed with son since patient does not have capacity in my opinion to make a decision. Patient was on the floor potentially for greater than 12 hours CPK was obtained to evaluate for rhabdomyolysis. Electrolyte panel to assess for renal dysfunction. Blood pressure is elevated 190/102 and will allow for permissive hypertension since patient has an acute stroke and not a thrombolytic candidate. History & Record Review Discussion w/independent historian: Family Additional record(s) reviewed:: Prior outpatient record and Prior labs Lab Data Attestation: I reviewed the patient's lab results. Labs: Laboratory Results - last 24 hr 11/29/23 12:30 WBC 9.6 RBC 4.12 L Hgb 12.8 Hct 38.3 MCV 93.0 MCH 31.1 MCHC 33.4 RDW Std Deviation 42.1 RDW Coeff of Alexa 12.4 Plt Count 215 MPV 10.2 Immature Gran % (Auto) 0.400 Neut % (Auto) 88.1 H Lymph % (Auto) 7.1 L [place] % (Auto) 4.1 Eos % (Auto) 0.1 Baso % (Auto) 0.2 Absolute Neuts (auto) 8.5 H Absolute Lymphs (auto) 0.68 L Nucleated RBC % 0 PT 13.2 INR 1.0 APTT 26.2 Radiography Chest X-Ray - ED: 1 View and Read by ED Physician (Interpreted at 11/21/2007 as negative for any acute pathology. Patient is slightly rotated. Left hemidiaphragm slightly elevated. Cardiac silhouette size normal. Lung parenchyma is normal with no evidence of infiltrate to suggest aspiration, osseous structures unremarkable.) Diagnostic Testing: Clinical Impression(s) from Imaging Studies Brain CT 11/29/23 12:17 IMPRESSION: Hyperdense right middle cerebral artery with corresponding changes in the right frontal parietal lobes and basal ganglia on the right side. N.B. : The above Results were Read Back by Mark Smith MD to [facility] and understanding confirmed on 11/29/2023 12:31:16 (ET). Electronically Signed: Mark Smith MD at 12:32 EST , ADDENDUM: 11/29/23 1239 IMPRESSION: Hyperdense right middle cerebral artery with corresponding changes in the right frontal parietal lobes and basal ganglia on the right side. N.B. : The above Results were Read Back by Mark Smith MD to Marcellus Ledbetter and understanding confirmed on 11/29/2023 12:31:16 (ET). Electronically Signed: Mark Smith MD at 12:32 EST , Head/Neck CTA 11/29/23 12:17 IMPRESSION: Occlusion of the right internal carotid artery just distal to its origin. Nonvisualization of the right middle cerebral arteries. Calcific plaques at the origin of the right and left internal carotid arteries. N.B. : The above Results were Read Back by Mark Smith MD to Dr Anatoly MD, and understanding confirmed on 11/29/2023 12:49:59 (ET). Electronically Signed: Mark Smith MD at 12:51 EST , ADDENDUM: 11/29/23 1258 IMPRESSION: Occlusion of the right internal carotid artery just distal to its origin. Nonvisualization of the right middle cerebral arteries. Calcific plaques at the origin of the right and left internal carotid arteries. N.B. : The above Results were Read Back by Mark Smith MD to Dr Anatoly MD, and understanding confirmed on 11/29/2023 12:49:59 (ET). Electronically Signed: Mark Smith MD at 12:51 EST , EKG Initial EKG: Attestation: I personally reviewed and interpreted this EKG as follows: Interpretation: Sinus Rhythm (Sinus rhythm rate of 73. The EKG is normal.) Management Discussion w/another healthcare provider: Train Control Electronic Technician and Radiologist Critical Care Time Critical Care Time: Yes Critical care time (excluding procedures): 30-74 minutes (31), Including time spent: (3, physical, documentation, independent review of CTA which reveals in the acute LVO right middle cerebral artery, arrangements for transport with [facility]), Discussing w/Patient &/or Family/Shoemaker Apprentice, Discussing w/Consultants and Arranging Admission or Transfer Discharge Plan Triage Chief Complaint: Stroke Alert ED Provider: Marcellus Ledbetter Dx/Rx/DC Orders Clinical Impression: 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) stroke, Hypertension Prescriptions: No Action aspirin 81 MG tablet 81 mg PO DAILY@0800 Qty: 90 0RF Patient Comments: blood thinner/heart health rivastigmine tartrate 1.5 mg Capsule 1.5 mg PO BID calcium 500 mg Tablet 500 mg PO DAILY docosahexaenoic acid-epa Capsule 1 cap PO DAILY cholecalciferol (vitamin D3) [Vitamin D3] 50 mcg (2,000 unit) Capsule 50 mcg PO DAILY Systane (PF) 1 cap DAILY metoprolol tartrate 25 mg tablet 25 mg PO BID Qty: 60 0RF amlodipine 5 mg tablet 5 mg PO DAILY Qty: 30 0RF hydrochlorothiazide 25 mg tablet 25 mg PO DAILY Patient Comments: take 1 tablet by mouth once daily atorvastatin 80 mg Tablet 80 mg PO QHS Qty: 30 0RF Primary Care Provider: Minda Hawkins Referrals: Minda Hawkins, DO [Primary Care Provider] - Capacity Capacity Assessment Tool Can the patient make a choice & communicate that choice?: No Can the patient understand benefits, risks and alternatives?: No Can the patient make a logical, rational choice?: Unable to Determine Is the choice the patient makes consistent w/ their values?: Comment (To son and sister who agree with transport to [facility] for clot retrieval) Is there an impending, emergent risk to the patient?: Yes Does the patient have an Advance Directive?: Unable to Determine Is there a Surrogate Available?: Yes i.e. close relative (spouse, child, parent, sibling)?: Yes
[2023-11-29 12:45] LABS: Absolute Lymphocyte Count 0.68 X10^3/uL (0.83-4.51); Absolute Neutrophil Count 8.5 X10^3/uL (2.0-7.7); Basophil# 0.02 X10^3/uL; Basophil% 0.2 % (0-1); Eosinophil# 0.01 X10^3/uL; Eosinophils% 0.1 % (0-5); Hematocrit 38.3 % (37-47); Hemoglobin 12.8 g/dL (12.0-15.0); Lymphocyte # 0.68 X10^3/ul (0.83-4.51); Lymphocyte % 7.1 % (19-41); Mean Corp Hgb Conc 33.4 g/dL (32-36); Mean Corpuscular Hgb 31.1 pg (27.0-32.0); Mean Platelet Vol. 10.2 fl (6.2-12.0); Monocyte# 0.39 X10^3/uL; Monocyte% 4.1 % (0-10); NRBC Flagged by Analyzer 0 % (0-5); Neutrophil # 8.46 X10^3/uL (2.7-7.7); Neutrophil % 88.1 % (47-70); Platelet Count 215 K/mm3 (150-450); RBC Distribution Width CV 12.4 % (11.6-14.6); RBC Distribution Width SD 42.1 fl (35.1-43.9); Red Blood Count 4.12 M/mm3 (4.2-5.4); White Blood Count 9.6 K/mm3 (4.4-11.0)
--- NOTE | 2023-11-29 13:02 | RAD_ITS ---
INDICATION: Neuro deficit, acute, stroke suspected EXAMINATION/TECHNIQUE: X-RAY - XR Chest 1 View COMPARISON: Prior study dated: 07/22/2022. FINDINGS: LINES/DEVICES: None. LUNGS: No consolidation, edema or effusion. No pneumothorax. Elevation of the right hemidiaphragm. MEDIASTINUM AND CARDIOVASCULAR STRUCTURES: Cardiac silhouette not enlarged. Central airways and mediastinal contour are unremarkable. BONES AND SOFT TISSUES: Degenerative changes of the right shoulder. RAD/Chest 1 View IMPRESSION: No radiographic evidence of acute cardiopulmonary disease. Electronically Signed: Jef Eisenberg MD at 13:31 EST ,
[2023-11-29 13:03] LABS: Partial Thromboplast Time 26.2 Seconds (24.1-36.2); Prothrombin Time (Protime)PT. 13.2 SECONDS (11.7-14.9)
--- NOTE | 2023-11-29 13:08 | CHAPLAIN ---
Type of Pastoral Visit ___ Initial Visit ___ Follow-up Visit ___ On-call Visit ___ General Patient Visit ___ Spiritual Assessment ___ Family Conference ___ Bereavement _x__ Rapid Response ___ Code Blue ___ Other (describe below) Pastoral Care Referral From ___ Patient ___ Family ___ Nurse ___ Physician ___ Brush Or Broom Cutter ___ Food Service Hotel Runner _x__ Other (describe below) Sacrament/Intervention ___ Active listening ___ Anointing ___ Spiritism ___ Bereavement ___ Communion ___ Ayse exploration ___ ___ Life review ___ Prayer ___ Reconciliation ___ Sacrament of Sick _x__ Supportive presence ___ Wedding ___ Other (describe below) Pastoral Comments responded to stroke alert; met son of patient when he arrived; offer of presence and beverage; after initial evaluation and determination that pt would be flown to [place], introduced self and role to patient who was responsive but slow to speak and did not open her eyes; pt and son deny any needs but would appreciate prayers being said for pt; pt is being readied for flying out in transfer
[2023-11-29] MEDS: Morphine 2 MG/ML Syringe IV (13:15)
[2023-11-29] MEDS: Ondansetron 4 MG/2 ML Vial IV (13:15)
[2023-11-29 13:28] LABS: Anion Gap 6 (5-15); BUN 16 mg/dL (7-18); BUN/Creat Ratio 20.1 RATIO (10-20); CPK Total, Creatine Kinase 55 U/L (26-192); Calcium,Total 8.8 mg/dL (8.5-10.1); Chloride 109 mmol/L (98-107); EST Glomerular Filtration Rate 74 mL/min (>60); Est Glom Filt Rate - Afr Amer 89 mL/min (>60); Estimated Creatinine Clearance 71.25 ml/min; Glucose 140 mg/dL (74-106); Potassium 3.5 mmol/L (3.5-5.1); Sodium Level 143 mmol/L (136-145); Troponin-I HS 200 pg/mL (3.0-54.0)
== END 2023-11-29 13:51 | disposition short-term general hospital (02) ==
PROVIDERS: Emergency Provider Emergency Medicine; PCP Family Medicine; Visit Provider Emergency Medicine
DX: I63.9 Cerebral infarction, unspecified (principal); F03.90 Unspecified dementia, unspecified severity, without behavioral disturbance, psychotic disturbance, mood disturbance, and anxiety; R29.810 Facial weakness; I10 Essential (primary) hypertension; I25.2 Old myocardial infarction; E66.9 Obesity, unspecified
CPT/HCPCS: 70450; 70496; 70498; 71045; 80048; 82550; 84484; 85025; 85610; 85730; 93005; 96374; 96375; 99285; Q9967; A4216; J2405

== ENCOUNTER → 2024-01-25 | Outpatient (REF) | payer MEDICARE, SELFPAY ==
[2024-01-25 09:29] LABS: Hemoglobin 11.3 g/dL (12.0-15.0); Mean Corp Hgb Conc 31.4 g/dL (32-36); Mean Corpuscular Hgb 30.2 pg (27.0-32.0); Mean Corpuscular Volume 96.3 fL (81-99); Platelet Count 248 K/mm3 (150-450); RBC Distribution Width CV 14.6 % (11.6-14.6); RBC Distribution Width SD 50.7 fl (35.1-43.9); Red Blood Count 3.74 M/mm3 (4.2-5.4)
[2024-01-25 09:42] LABS: Anion Gap 6 (5-15); BUN 23 mg/dL (7-18); BUN/Creat Ratio 46.2 RATIO (10-20); Chloride 103 mmol/L (98-107); EST Glomerular Filtration Rate 127 mL/min (>60); Est Glom Filt Rate - Afr Amer 154 mL/min (>60); Glucose 156 mg/dL (74-106); Potassium 4.2 mmol/L (3.5-5.1); Sodium Level 136 mmol/L (136-145)
== END ==
LOC: OLS.WCC 05:00
PROVIDERS: PCP Family Medicine; Visit Provider Family Medicine
DX: I10 Essential (primary) hypertension (principal); Z79.899 Other long term (current) drug therapy
CPT/HCPCS: 36415; 80048; 85027

== ENCOUNTER → 2024-02-01 | Outpatient (REF) | payer MEDICARE, SELFPAY ==
[2024-02-01 08:47] LABS: Hematocrit 35.5 % (37-47); Hemoglobin 11.1 g/dL (12.0-15.0); Mean Corp Hgb Conc 31.3 g/dL (32-36); Mean Corpuscular Hgb 29.8 pg (27.0-32.0); Mean Corpuscular Volume 95.4 fL (81-99); Mean Platelet Vol. 10.4 fl (6.2-12.0); Platelet Count 259 K/mm3 (150-450); RBC Distribution Width CV 14.8 % (11.6-14.6); RBC Distribution Width SD 51.4 fl (35.1-43.9); Red Blood Count 3.72 M/mm3 (4.2-5.4); White Blood Count 8.5 K/mm3 (4.4-11.0)
[2024-02-01 09:05] LABS: Anion Gap 4 (5-15); BUN 17 mg/dL (7-18); BUN/Creat Ratio 35.7 RATIO (10-20); Calcium,Total 8.8 mg/dL (8.5-10.1); Chloride 103 mmol/L (98-107); Creatinine, Serum 0.48 mg/dL (0.55-1.02); EST Glomerular Filtration Rate 134 mL/min (>60); Est Glom Filt Rate - Afr Amer 162 mL/min (>60); Glucose 129 mg/dL (74-106); Potassium 4.3 mmol/L (3.5-5.1); Sodium Level 136 mmol/L (136-145)
== END ==
LOC: OLS.WCC 05:00
PROVIDERS: PCP Family Medicine; Visit Provider Family Medicine
DX: I10 Essential (primary) hypertension (principal); Z79.899 Other long term (current) drug therapy
CPT/HCPCS: 36415; 80048; 85027

== ENCOUNTER → 2024-02-07 | Outpatient (REF) | payer MEDICARE, SELFPAY ==
[2024-02-07 09:24] LABS: Hematocrit 38.4 % (37-47); Mean Corp Hgb Conc 31.3 g/dL (32-36); Mean Corpuscular Hgb 29.8 pg (27.0-32.0); Mean Corpuscular Volume 95.3 fL (81-99); Mean Platelet Vol. 10.1 fl (6.2-12.0); Platelet Count 266 K/mm3 (150-450); RBC Distribution Width CV 14.9 % (11.6-14.6); RBC Distribution Width SD 52.3 fl (35.1-43.9); Red Blood Count 4.03 M/mm3 (4.2-5.4); White Blood Count 8.2 K/mm3 (4.4-11.0)
[2024-02-07 09:56] LABS: Anion Gap 6 (5-15); BUN 15 mg/dL (7-18); BUN/Creat Ratio 29.5 RATIO (10-20); Calcium,Total 9.3 mg/dL (8.5-10.1); Chloride 103 mmol/L (98-107); Creatinine, Serum 0.51 mg/dL (0.55-1.02); EST Glomerular Filtration Rate 124 mL/min (>60); Est Glom Filt Rate - Afr Amer 150 mL/min (>60); Glucose 158 mg/dL (74-106); Potassium 4.4 mmol/L (3.5-5.1); Sodium Level 136 mmol/L (136-145)
== END ==
LOC: OLS.WCC 05:00
PROVIDERS: PCP Family Medicine; Visit Provider Family Medicine
DX: I10 Essential (primary) hypertension (principal); Z79.899 Other long term (current) drug therapy
CPT/HCPCS: 36415; 80048; 85027

== ENCOUNTER → 2024-02-14 | Outpatient (REF) | payer MEDICARE, SELFPAY ==
[2024-02-14 09:22] LABS: Hematocrit 38.2 % (37-47); Hemoglobin 11.8 g/dL (12.0-15.0); Mean Corp Hgb Conc 30.9 g/dL (32-36); Mean Corpuscular Hgb 30.2 pg (27.0-32.0); Mean Corpuscular Volume 97.7 fL (81-99); Mean Platelet Vol. 10.3 fl (6.2-12.0); Platelet Count 246 K/mm3 (150-450); RBC Distribution Width CV 14.8 % (11.6-14.6); RBC Distribution Width SD 53.4 fl (35.1-43.9); Red Blood Count 3.91 M/mm3 (4.2-5.4); White Blood Count 7.4 K/mm3 (4.4-11.0)
[2024-02-14 09:42] LABS: Anion Gap 2 (5-15); BUN 18 mg/dL (7-18); BUN/Creat Ratio 31.1 RATIO (10-20); Chloride 107 mmol/L (98-107); Creatinine, Serum 0.58 mg/dL (0.55-1.02); EST Glomerular Filtration Rate 107 mL/min (>60); Est Glom Filt Rate - Afr Amer 130 mL/min (>60); Glucose 111 mg/dL (74-106); Potassium 4.3 mmol/L (3.5-5.1); Sodium Level 137 mmol/L (136-145)
== END ==
LOC: OLS.WCC 08:15
PROVIDERS: PCP Family Medicine; Visit Provider Family Medicine
DX: I10 Essential (primary) hypertension (principal); Z79.899 Other long term (current) drug therapy
CPT/HCPCS: 36415; 80048; 85027

== ENCOUNTER → 2024-02-20 | Outpatient (REF) | payer MEDICARE, SELFPAY ==
[2024-02-20 08:30] LABS: Hemoglobin 12.6 g/dL (12.0-15.0); Mean Corp Hgb Conc 31.5 g/dL (32-36); Mean Corpuscular Hgb 30.1 pg (27.0-32.0); Mean Corpuscular Volume 95.7 fL (81-99); Mean Platelet Vol. 10.5 fl (6.2-12.0); Platelet Count 279 K/mm3 (150-450); RBC Distribution Width CV 14.5 % (11.6-14.6); RBC Distribution Width SD 50.6 fl (35.1-43.9); Red Blood Count 4.18 M/mm3 (4.2-5.4); White Blood Count 8.5 K/mm3 (4.4-11.0)
[2024-02-20 08:39] LABS: Anion Gap 5 (5-15); BUN 13 mg/dL (7-18); Chloride 105 mmol/L (98-107); Creatinine, Serum 0.56 mg/dL (0.55-1.02); EST Glomerular Filtration Rate 110 mL/min (>60); Est Glom Filt Rate - Afr Amer 133 mL/min (>60); Glucose 103 mg/dL (74-106); Potassium 3.6 mmol/L (3.5-5.1); Sodium Level 141 mmol/L (136-145)
== END ==
LOC: OLS.WCC 04:00
PROVIDERS: PCP Family Medicine; Referring Provider Family Medicine; Visit Provider Family Medicine
DX: D64.9 Anemia, unspecified (principal); I10 Essential (primary) hypertension
CPT/HCPCS: 36415; 80048; 85027

== ENCOUNTER → 2024-02-29 | Outpatient (REF) | payer MEDICARE, SELFPAY ==
[2024-02-29 08:57] LABS: Hemoglobin 11.9 g/dL (12.0-15.0); Mean Corp Hgb Conc 31.3 g/dL (32-36); Mean Corpuscular Hgb 29.8 pg (27.0-32.0); Mean Platelet Vol. 10.7 fl (6.2-12.0); Platelet Count 259 K/mm3 (150-450); RBC Distribution Width CV 14.3 % (11.6-14.6); RBC Distribution Width SD 50.1 fl (35.1-43.9)
[2024-02-29 09:39] LABS: Anion Gap 3 (5-15); BUN 14 mg/dL (7-18); BUN/Creat Ratio 28.9 RATIO (10-20); Chloride 106 mmol/L (98-107); Creatinine, Serum 0.48 mg/dL (0.55-1.02); EST Glomerular Filtration Rate 131 mL/min (>60); Est Glom Filt Rate - Afr Amer 159 mL/min (>60); Glucose 120 mg/dL (74-106); Potassium 3.8 mmol/L (3.5-5.1); Sodium Level 137 mmol/L (136-145)
== END ==
LOC: OLS.WCC 05:00
PROVIDERS: PCP Family Medicine; Visit Provider Family Medicine
DX: D64.9 Anemia, unspecified (principal); I10 Essential (primary) hypertension
CPT/HCPCS: 36415; 80048; 85027

== ENCOUNTER → 2024-03-05 | Outpatient (REF) | payer MEDICARE, SELFPAY ==
[2024-03-05 08:29] LABS: Hematocrit 41.3 % (37-47); Hemoglobin 12.9 g/dL (12.0-15.0); Mean Corp Hgb Conc 31.2 g/dL (32-36); Mean Corpuscular Hgb 29.7 pg (27.0-32.0); Mean Corpuscular Volume 95.2 fL (81-99); Platelet Count 252 K/mm3 (150-450); RBC Distribution Width CV 14.2 % (11.6-14.6); RBC Distribution Width SD 49.7 fl (35.1-43.9); Red Blood Count 4.34 M/mm3 (4.2-5.4); White Blood Count 8.8 K/mm3 (4.4-11.0)
[2024-03-05 08:50] LABS: Anion Gap 4 (5-15); BUN 9 mg/dL (7-18); BUN/Creat Ratio 21.4 RATIO (10-20); Calcium,Total 8.9 mg/dL (8.5-10.1); Chloride 108 mmol/L (98-107); Creatinine, Serum 0.42 mg/dL (0.55-1.02); EST Glomerular Filtration Rate 155 mL/min (>60); Est Glom Filt Rate - Afr Amer 187 mL/min (>60); Glucose 104 mg/dL (74-106); Potassium 3.7 mmol/L (3.5-5.1); Sodium Level 141 mmol/L (136-145)
== END ==
LOC: OLS.WCC 05:00
PROVIDERS: PCP Family Medicine; Visit Provider Family Medicine
DX: D64.9 Anemia, unspecified (principal); I10 Essential (primary) hypertension
CPT/HCPCS: 36415; 80048; 85027

== ENCOUNTER → 2024-03-13 | Outpatient (REF) | payer MEDICARE, SELFPAY ==
[2024-03-13 08:21] LABS: Hematocrit 39.3 % (37-47); Hemoglobin 12.3 g/dL (12.0-15.0); Mean Corp Hgb Conc 31.3 g/dL (32-36); Mean Corpuscular Hgb 29.1 pg (27.0-32.0); Mean Corpuscular Volume 92.9 fL (81-99); Platelet Count 227 K/mm3 (150-450); RBC Distribution Width CV 14.6 % (11.6-14.6); RBC Distribution Width SD 50.2 fl (35.1-43.9); Red Blood Count 4.23 M/mm3 (4.2-5.4); White Blood Count 8.7 K/mm3 (4.4-11.0)
[2024-03-13 08:27] LABS: Anion Gap 5 (5-15); BUN 13 mg/dL (7-18); BUN/Creat Ratio 23.9 RATIO (10-20); Calcium,Total 9.3 mg/dL (8.5-10.1); Chloride 105 mmol/L (98-107); Creatinine, Serum 0.54 mg/dL (0.55-1.02); EST Glomerular Filtration Rate 115 mL/min (>60); Est Glom Filt Rate - Afr Amer 139 mL/min (>60); Glucose 93 mg/dL (74-106); Potassium 3.5 mmol/L (3.5-5.1); Sodium Level 141 mmol/L (136-145)
== END ==
LOC: OLS.WCC 05:00
PROVIDERS: PCP Family Medicine; Visit Provider Family Medicine
DX: D64.9 Anemia, unspecified (principal); I10 Essential (primary) hypertension
CPT/HCPCS: 36415; 80048; 85027

== ENCOUNTER → 2024-04-21 | Outpatient (REF) | payer MEDICARE, SELFPAY ==
[2024-04-21 07:45] LABS: Cholesterol 96 mg/dL (200); High Density Lipoprotein 43 mg/dL; Triglycerides 57 mg/dL; Very Low Density Lipoprotein 11 mg/dL (5-40)
== END ==
LOC: OLS.WCC 05:00
PROVIDERS: Visit Provider Family Medicine
DX: E78.5 Hyperlipidemia, unspecified (principal)
CPT/HCPCS: 36415; 80061

== ENCOUNTER → 2024-10-13 | Outpatient (REF) | payer MEDICARE, SELFPAY ==
[2024-10-13 07:50] LABS: Anion Gap 4 (5-15); BUN 17 mg/dL (7-18); Calcium,Total 8.6 mg/dL (8.5-10.1); Chloride 111 mmol/L (98-107); Creatinine, Serum 0.57 mg/dL (0.55-1.02); EST Glomerular Filtration Rate 110 mL/min (>60); Est Glom Filt Rate - Afr Amer 133 mL/min (>60); Glucose 90 mg/dL (74-106); Potassium 3.9 mmol/L (3.5-5.1); Sodium Level 143 mmol/L (136-145)
[2024-10-13 07:53] LABS: Hematocrit 36.3 % (37-47); Hemoglobin 11.7 g/dL (12.0-15.0); Mean Corp Hgb Conc 32.2 g/dL (32-36); Mean Corpuscular Hgb 31.5 pg (27.0-32.0); Mean Corpuscular Volume 97.6 fL (81-99); Mean Platelet Vol. 11.1 fl (6.2-12.0); Platelet Count 188 K/mm3 (150-450); RBC Distribution Width CV 13.9 % (11.6-14.6); RBC Distribution Width SD 49.5 fl (35.1-43.9); Red Blood Count 3.72 M/mm3 (4.2-5.4); White Blood Count 7.7 K/mm3 (4.4-11.0)
== END ==
LOC: OLS.WCC 06:50
PROVIDERS: Referring Provider Family Medicine; Visit Provider Family Medicine
DX: D64.9 Anemia, unspecified (principal); I10 Essential (primary) hypertension
CPT/HCPCS: 36415; 80048; 85027

== ENCOUNTER → 2025-04-15 05:00 | Outpatient (REF) | payer MEDICARE, SELFPAY ==
[2025-04-15 09:14] LABS: Hematocrit 40.6 % (37-47); Mean Corpuscular Hgb 32.1 pg (27.0-32.0); Mean Corpuscular Volume 100.2 fL (81-99); Mean Platelet Vol. 11.4 fl (6.2-12.0); Platelet Count 169 K/mm3 (150-450); RBC Distribution Width CV 13.7 % (11.6-14.6); RBC Distribution Width SD 50.7 fl (35.1-43.9); Red Blood Count 4.05 M/mm3 (4.2-5.4)
[2025-04-15 11:27] LABS: Anion Gap 8 (5-15); BUN 20 mg/dL (4-19); BUN/Creat Ratio 27.6 RATIO (10-20); Calcium,Total 9.2 mg/dL (7.6-11.0); Carbon Dioxide 26.7 mmol/L (21.0-32.0); Chloride 110 mmol/L (98-108); Creatinine, Serum 0.73 mg/dL (0.70-1.20); EST Glomerular Filtration Rate 83 (>60); Glucose 92 mg/dL (70-99); Potassium 4.2 mmol/L (3.3-5.1); Sodium Level 145 mmol/L (133-145)
== END ==
LOC: OLS.WCC 05:00
PROVIDERS: PCP Family Medicine; Visit Provider Family Medicine
DX: I10 Essential (primary) hypertension (principal); D64.9 Anemia, unspecified
CPT/HCPCS: 36415; 80048; 85027

== ENCOUNTER → 2025-10-12 05:00 | Outpatient (REF) | payer MEDICARE, SELFPAY ==
--- OUTSIDE RECORDS SUMMARY | 2025-10-12 03:22 | XMS RPT_ITS | CCD ---
Author Organization [facility] Care Team Providers Care Entry Level Programmer Name Role Phone DO Maxx Hawkins Primary Care Provider Dr. Marcellus Barney Emergency Provider [phone] Jose Alejandro Saeed Admit Provider Dr. Jose Alejandro Saeed Attending Provider Dr. Jose Alejandro Saeed Other Provider SANTO DUMONT Primary Care Unavailable CHRISTIAN POWERS Admitting Unavailable CONSULT, SURGERY - NEURO Consulting Unavail able MARCELLUS BARNEY Referring Unavailable SKIP MCFARLAND Attending Unavailable MAXX HAWKINS Primary Care Unavailable CHRISTIAN POWERS Referring Unavailable Santo Dumont MD Primary Care Provider [phone] Maxx Hawkins DO Primary Care Provider Maxx Hawkins DO Primary Care Provider Santo Grimaldo Attending Unavailable Santo Grimaldo Referring Unavailable Maxx Hawkins Primary Care Unavailable Santo Grimaldo Attending Unavailable Medications Current Medications Medication Drug Class(es) Dates Sig (Normalized) Sig (Original) amLODIPine 5 mg oral tablet (10 sources) Dihydropyridine Calcium Channel Lisha Start: 06-29-2021 take 5 mg by mouth once daily Amlodipine Active 5 MG PO DAILY June 29, 2021 12:00am aspirin 81 mg chewable tablet (14 sources) Platelet Aggregation Inhibitor, Nonsteroidal Anti-inflammatory Drug Start: 12-22-2023 aspirin 81 MG Chew Tab chewable tablet 1 tablet by PEG Tube route daily. 12/22/2023 Active Start: 12-04-2023 End: 12-21-2023 81 mg, PEG Tube, DAILY, Firs t dose (after last modification) on Sun12/19/23 at 0900, Until Discontinued Start: 10-24-2014 take 81 mg by mouth once daily Aspirin Active 81 MG PO DAILY@0800 90 October 24, 2014 1:00am atorvastatin 40 mg oral tablet (14 sources) HMG-CoA Reductase Inhibitor Start: 12-21-2023 Atorvastatin 40 MG tablet 1 tablet by Per G Tube route at bedtime. 12/21/2023 Active Start: 12-21-2023 Start: 11-30-2023 End: 12-21-2023 40 mg, PEG Tube, DAILY AT [facility], First dose (after last modification) on Sun12/19/23 at 2100, Until Discontinued Start: 07-23-2022 take 80 mg by mouth at bedtime Atorvastatin Active 80 MG PO AT BEDTIME July 23, 2022 12:00am Calcium (10 sources) Phosphate Binder, Calcium Start: 06-27-2021 take 500 mg by mouth once daily Calcium Active 500 MG PO DAILY June 26, 2021 11:00pm Start: 06-27-2021 take 500 mg by mouth once katja y Calcium Active 500 MG PO DAILY June 27, 2021 12:00am carvedilol 12.5 mg oral tablet (5 sources) alpha-Adrenergic Lisha, beta-Adrenergic Lisha Start: 12-21-2023 take 1 tablet intragastric route every twelve hours carveDILOL 12.5 MG tablet 1 tablet by Per G Tube route every 12 hours. 12/21/2023 Active Start: 12-21-2023 take 12.5 mg intraga stric route every twelve hours Start: 12-19-2023 End: 12-21-2023 take 12.5 mg intragastric route every twelve hours 12.5 mg, PEG Tube, EVERY 12 HOURS NON-STANDARD, First dose (after last modification) on Sun12/19/23 at 0900, Until Discontinued Start: 12-06-2023 End: 12-19-2023 take 12.5 mg nasogastric route every twelve hours 12.5 mg, Per NG tube, EVERY 12 HOURS NON-STANDARD, First dose (after last modification) on Afua 12/06/23 at 0900, Until Discontinued Start: 12-04-2023 End: 12-06-2023 take 6.25 mg nasogastric route every twelve hours 6.25 mg, Per NG tube, EVERY 12 HOURS NON-STANDARD, First dose on Sun12/04/23 at 2100, Until Discontinued cholecalciferol 0.05 mg oral capsule (10 sources) Vitamin D Start: 06-27-2021 take 1 capsule by mouth once daily Cholecalciferol (Vitamin D3) (Vitamin D3) 50 mcg (2,000 unit) Capsule Active 50 MCG PO DAILY June 27, 2021 12:00am Docosahexaenoic Acid-Epa (10 sources) Start: 06-27-2021 take 1 capsule by mouth once daily Docosahexaenoic Acid-Epa Active 1 CAP PO DAILY June 26, 2021 11:00pm Start: 06-27-2021 take 1 capsule by [facility] once daily Docosahexaenoic Acid-Epa Active 1 CAP PO DAILY June 27, 2021 12:00am hydroCHLOROthiazide 25 mg oral tablet (20 sources) Thiazide Diuretic Start: 07-22-2022 take 25 mg by mouth once daily Hydrochlorothiazide Active 25 MG PO DAILY July 22, 2022 12:00am Start: 06-27-2021 End: 06-29-2021 take 1 tablet by mouth once daily Hydrochlorothiazide (Hydrodiuril) 50 mg Tablet Discontinued 50 MG PO DAILY June 27, 2021 12:00am June 29, 2021 11:31am Start: 10-23-2014 End: 10-24-2014 take 25 mg by mouth once daily Hydrochlorothiazide Discontinued 25 MG PO DAILY October 23, 2014 1:00am October 24, 2014 2:34pm lidocaine 0.04 mg/mg medicated patch (3 sources) Antiarrhythmic, Amide Local Anesthetic Start: 12-08-2023 End: 12-21-2023 lidocaine 4 % patch Place 2 patches on skin every 24 hours. Max of 12 hours of application then remove. 12/21/2023 Active lisinopril 40 mg oral tablet (9 sources) Angiotensin Converting Enzyme Inhibitor Start: 12-22-2023 Lisinopril 40 MG tablet 1 tablet by Per G Tube route daily. 12/22/2023 Active Start: 12-22-2023 Start: 12-19-2023 End: 12-21-2023 40 mg, PEG Tube, DAILY, Firs t dose (after last modification) on Sun12/19/23 at 0900, Until Discontinued Start: 12-05-2023 End: 12-19-2023 40 mg, Per NG tube, DAILY, F irst dose (after last modification) on Sun12/05/23 at 1015, Until Discontinued Start: 12-04-2023 End: 12-04-2023 10 mg, Per NG tube, ONCE, 1 dose, On Sun12/04/23 at 1100 Start: 12-04-2023 End: 12-04-2023 10 mg, Per NG tube, DAILY, F irst dose (after last modification) on Sun12/04/23 at 0900, Until Discontinued Start: 12-03-2023 End: 12-03-2023 5 mg, Per NG tube, ONCE, 1 d ose, On Sun12/03/23 at 1000 Start: 12-01-2023 End: 12-03-2023 5 mg, Per NG tube, DAILY, Fi rst dose (after last modification) on Sun12/02/23 at 0900, Until Discontinued meclizine hydrochloride 12.5 mg oral tablet (1 source) Antiemetic Start: 06-29-2021 take 12.5 mg by mouth three times daily Meclizine Active 12.5 MG PO THREE TIMES A DAY June 29, 2021 12:00am Nutritional Supplements (Jevity 1.5 Benny/Fiber) Liquid (1 source) Start: 12-21-2023 Nutritional Supplements (Jevity 1.5 Benny/Fiber) Liquid 10-50 mL/hr by PEG Tube route continuous. 12/21/2023 Active Polyethylene Glycol 400 / Propylene glycol (10 sources) Start: 06-27-2021 Systane (PF) A ctive 1 CAP DAILY June 26, 2021 11:00pm Start: 06-27-2021 Systane (PF) A ctive 1 CAP DAILY June 27, 2021 12:00am rivastigmine 3 mg oral capsu le (13 sources) Start: 12-21-2023 rivastigmine 3 MG capsule 1 capsule by Per G Tube route 2 times daily. 60 capsule 12/21/2023 Active Start: 12-21-2023 Start: 06-27-2021 take 1.5 mg by mouth twice daily Rivastigmine Tartrate Active 1.5 MG PO TWICE A DAY June 27, 2021 12:00am End: 12-21-2023 (8 sources) Start: 12-21-2023 Start: 12-19-2023 End: 12-21-2023 10-50 mL/hr, PEG Tube, CAROLYN NUOUS, Starting on Sun12/19/23 at 1400, Until Sun12/21/23 at 1420 Start: 12-15-2023 End: 12-19-2023 10-50 mL/hr, Nasogastric, CO NTINUOUS, Starting on Sun12/15/23 at 0530, Until Sun12/19/23 at 0750 Start: 12-14-2023 End: 12-14-2023 10-50 mL/hr, Nasogastric, CO NTINUOUS, Starting on Sun12/14/23 at 0615, Until Sun12/14/23 at 1414 Start: 12-13-2023 End: 12-13-2023 10-50 mL/hr, Nasogastric, CO NTINUOUS, Starting on Sun12/13/23 at 0630, Until Sun12/13/23 at 1429 Start: 12-12-2023 End: 12-13-2023 10-50 mL/hr, Nasogastric, CO NTINUOUS, Starting on Sun12/12/23 at 2215, Until Sun12/13/23 at 0614 Start: 12-11-2023 End: 12-12-2023 10-50 mL/hr, Nasogastric, CO NTINUOUS, Starting on Sun12/11/23 at 1745, Until Sun12/12/23 at 0144 Start: 12-07-2023 End: 12-10-2023 10-50 mL/hr, Nasogastric, CO NTINUOUS, Starting on Sun12/07/23 at 1600, Until Sun12/10/23 at 2359 Completed/Discontinued Medications Medication Drug Class(es) Dates Sig (Normalized) Sig (Original) bisacodyl 10 mg rectal suppository (2 sources) Stimulant Laxative Start: 12-04-2023 End: 12-04-2023 take 1 dose rectal route once 10 mg, Rectal, ONCE, 1 dose, On Sun12/04/23 at 1230 Start: 12-03-2023 End: 12-03-2023 take 1 dose rectal route once 10 mg, Rectal, ONCE, 1 d ose, On 12/03/23 at 1000 cefTRIAXone 2000 mg injection (1 source) Cephalosporin Antibacterial Start: 12-02-2023 End: 12-07-2023 take 2 g intravenously every twenty-four hours 2 g, Intravenous, Administer over 30 Minutes, EVERY 24 HOURS, First dose on Sun12/02/23 at 1630, Until Discontinued 1 ml hydrALAZINE hydrochloride 20 mg/ml injection (2 sources) Arteriolar Vasodilator Start: 11-29-2023 End: 11-30-2023 10 mg, Intravenous, EVERY 10 MINUTES NEEDED, 3 doses, Starting on Afua 11/29/23 at 1846, Until Sun11/30/23 at 0122, SBP > 180 mmHg, SBP>180 with HR < 60, Post-op/Post-Proc labetalol hydrochloride 5 mg/ml injectable solution (1 source) beta-Adrenergic Lisha Start: 11-29-2023 End: 11-29-2023 5 mg, Intravenous, EVERY 15 MINUTES NEEDED, Starting on Afua 11/29/23 at 1721, Until Afua 11/29/23 at 2306, FIRST line HTN. For SBP > 170 mm Hg. Hold if HR < 60 and give SECOND line agent. &nbsp ; May give a total of 20 mg while in PACU. If blood pressure uncontrolled after 20mg of labetalol administered, use second line agent or notify MD. For vials: labetalol should be treated as a SINGLE USE VIAL. Discard remaining contents after one use. Recovery 50 ml magnesium sulfate 80 mg/ml injection (1 source) Start: 11-30-2023 End: 12-05-2023 4 g, Intravenous, Administer over 4 Hours, ADMINISTER DIRECTED, Starting on Sun11/30/23 at 0122, Until Sun12/05/23 at 1302, Other, ICU Magnesium Replacement Parameters Administer 4 grams once if magnesium level is less than or equal to 2.0 mg/dL. &nbsp ;If replacing potassium also, replete magnesium prior to KCl administration. EXCLUDE less than 45 kg, SCr greater than or equal to 2 mg/dL, CrCl less than 30 ml/min, ESRD, and renal replacement therapy 500 ml mannitol 200 mg/ml injection (1 source) Osmotic Diuretic Start: 12-01-2023 End: 12-01-2023 90 g, Intravenous, at 998 mL/hr, ONCE, 1 dose, On 12/01/23 at 2300 Extravasation Risk. Use 0.2 micron filter set (26847O). metoprolol tartrate 25 mg oral tablet (20 sources) beta-Adrenergic Lisha Start: 12-02-2023 End: 12-04-2023 25 mg, Per NG tube, EVERY 12 HOURS, First dose on Sun12/02/23 at 0900, Until Discontinued Start: 06-29-2021 take 25 mg by mouth twice daily Metoprolol Tartrate Active 25 MG PO TWICE A DAY 60 June 29, 2021 12:00am Start: 10-23-2014 End: 06-29-2021 take 200 mg by mouth once daily Metoprolol Tartrate Discontinued 200 MG PO DAILY October 23, 2014 1:00am June 29, 2021 11:31am End: 12-21-2023 200 ml niCARdipine hydrochloride 0.2 mg/ml injection (1 source) Dihydropyridine Calcium Channel Lisha Start: 12-01-2023 End: 12-05-2023 0-15 mg/hr (0-75 mL/hr), Intravenous, CONTINUOUS, Starting on 12/01/23 at 0330, Until Sun12/05/23 at 1002 Initiate at 5 mg/hr. Titrate by 2.5 mg/hr every 15 minutes to maintain SBP <160 mmHg and MAP > 65. Notify prescriber for inability to achieve goals at maximum dose of ordered range or change in clinical condition. polyethylene glycol 3350 02821 mg powder for oral solution (3 sources) Osmotic Laxative Start: 12-19-2023 End: 12-21-2023 17 g, PEG Tube, DAILY NEEDED, Starting on Sun12/19/23 at 0751, Until Sun12/21/23 at 1420, Constipation If No Bowel Movement in 48 Hours Start: 12-04-2023 End: 12-16-2023 17 g, Per NG tube, EVERY 12 HOURS, First dose (after last modification) on Sun12/04/23 at 2100, Until Discontinued Start: 12-02-2023 End: 12-04-2023 17 g, Per NG tube, DAILY, Fi rst dose on Sun12/02/23 at 0900, Until Discontinued sennosides, mcc 8.6 mg oral tablet (3 sources) Start: 12-19-2023 End: 12-21-2023 17.2 mg, PEG Tube, DAILY NEEDED, Starting on Sun12/19/23 at 0751, Until Sun12/21/23 at 1420, Constipation 1st Line Hold if BM in last 2 hours. Start: 12-03-2023 End: 12-16-2023 17.2 mg, Per NG tube, EVERY 12 HOURS, First dose (after last modification) on Sun12/03/23 at 2100, Until Discontinued Hold if BM in last 2 hours. Start: 11-30-2023 End: 12-03-2023 8.6 mg, Per NG tube, DAILY E VERY MORNING, First dose on Sun11/30/23 at 0900, Until Discontinued Hold if BM in last 2 hours. 1000 ml sodium chloride 9 mg/ml injection (10 sources) Start: 12-18-2023 End: 12-19-2023 Intravenous, at 75 mL/hr, CONTINUOUS, Starting on Sun12/18/23 at 0000, Until Sun12/19/23 at 1400 Start: 12-13-2023 End: 12-13-2023 1-100 mL, Intravenous, ONCE NEEDED, 1 dose, Starting on Sun12/13/23 at 1207, Until Sun12/13/23 at 1208, Flush, CT Procedure Start: 12-11-2023 End: 12-13-2023 Intravenous, at 75 mL/hr, CO NTINUOUS, Starting on Sun12/11/23 at 0000, Until Sun12/13/23 at 0621 Start: 12-06-2023 End: 12-08-2023 250 mL, Intravenous, at 20 m L/hr, NEEDED, Starting on Sun12/06/23 at 1553, Until 12/08/23 at 0632, Carrier Fluid - See admin instr. 250 mL 0.9% normal saline to be used as carrier fluid for intermittent small volume or piggyback medication administration as needed. Infusion rate of the carrier fluid should be set at 20 mL/hr unless the rate of the intermittent medication is less than 20 mL/hr. For intermittent medications with a rate of less than 20 mL/hr, set the carrier fluid at that rate of the intermittent or piggyback medication. Start: 12-04-2023 End: 12-04-2023 1 dose, Starting on 12/04 at 1619, Until Sun12/04/23 at 2109 Created by cabinet override Start: 12-02-2023 End: 12-03-2023 250 mL, Intravenous, at 999 mL/hr, ONCE, 1 dose, On Sun12/03/23 at 1315 Extravasation Risk Start: 11-30-2023 End: 11-30-2023 Intravenous, at 75 mL/hr, CO NTINUOUS, Starting on Sun11/30/23 at 0100, Until Sun11/30/23 at 2129 Start: 11-29-2023 End: 11-29-2023 1-100 mL, Intravenous, ONCE NEEDED, 1 dose, Starting on Sun11/29/23 at 1513, Until Sun11/29/23 at 1513, Flush, CT Procedure (8 sources) Start: 12-20-2023 End: 12-21-2023 [Order 1 Start] Name: Enoxap marcia Sodium (LOVENOX) injection 40 mg Signed Summary: 40 mg, Subcutaneous, DAILY, First dose (after last modification) on Sun12/20/23 at 0900, Until Discontinued, Indications: DVT/PE prophylaxis [Order 1 End] [Order 2 Start] Name: PLATELET COUNT Signed Summary: Routine, EVERY 3 DAYS AM LAB, First occurrence on 12/22/23 at 0500, Until Specified, New collection [Order 2 End] Start: 12-19-2023 End: 12-21-2023 take 325 mg intragastric route every four hours as needed [Order 1 Start] Name: Acetaminophen (TYLENOL) tablet 325 mg Signed Summary: 325 mg, PEG Tube, EVERY 4 HOURS NEEDED, Starting on Sun12/19/23 at 0751, Until Sun12/21/23 at 1420, Mild Pain, Moderate Pain Maximum dose of acetaminophen is 4000 mg from all sources in 24 hours. [Order 1 End] [Order 2 Start] Name: Acetaminophen (TYLENOL) tablet 650 mg Signed Summary: 650 mg, PEG Tube, EVERY 4 HOURS NEEDED, Starting on Sun12/19/23 at 0751, Until Sun12/21/23 at 1420, Severe Pain, Oral temp > 99.5 Maximum dose of acetaminophen is 4000 mg from all sources in 24 hours. [Order 2 End] Start: 12-13-2023 End: 12-13-2023 take 1 dose by mouth once 15,000 mg, Oral, ONCE, 1 dos e, On Afua 12/13/23 at 0930 For administration to inpatients, to be given by RN on inpatient nursing unit. CT Procedure Start: 12-02-2023 End: 12-19-2023 Start: 11-30-2023 End: 12-21-2023 take 10 mg intravenously every hour as needed [Order 1 Start] Name: Labetalol (NORMODYNE) injection 10 mg Signed Summary: 10 mg, Intravenous, EVERY 1 HOUR NEEDED, Starting on Sun11/30/23 at 2128, Until Sun12/21/23 at 1420, Systolic Blood Pressure greater than 160 mmHg OR Diastolic Blood Pressure greater than 120 mmHg and heart rate GREATER THAN 60 beats per minute. Use as initial dose. Higher dose may be administered if lower dose was previously documented as ineffective 10 minutes after administration and did not result in adverse effects (HR<60). For vials: labetalol should be treated as a SINGLE USE VIAL. Discard remaining contents after one use. [Order 1 End] [Order 2 Start] Name: Labetalol (NORMODYNE) injection 20 mg Signed Summary: 20 mg, Intravenous, EVERY 1 HOUR NEEDED, Starting on Sun11/30/23 at 2128, Until Sun12/21/23 at 1420, Systolic Blood Pressure greater than 160 mmHg OR Diastolic Blood Pressure greater than 120 mmHg and heart rate GREATER THAN 60 beats per minute. Higher dose may be administered if lower dose was previously documented as ineffective 10 minutes after administration and did not result in adverse effects (HR<60). Decrease back to lower dose if patient has adverse effects, or no PRN used in previous 3 hours. For vials: labetalol should be treated as a SINGLE USE VIAL. Discard remaining contents after one use. [Order 2 End] Start: 11-30-2023 End: 12-21-2023 take 10 mg intravenously every hour as needed [Order 1 Start] Name: hydrALAZINE (APRESOLINE) injection 10 mg Signed Summary: 10 mg, Intravenous, EVERY 1 HOUR NEEDED, Starting on Sun11/30/23 at 2127, Until Sun12/21/23 at 1420, Systolic Blood Pressure greater than 160 mmHg OR Diastolic Blood Pressure greater than 120 mmHg and heart rate LESS THAN 60 beats per minute. Use as initial dose. Higher dose may be administered if lower dose was previously documented as ineffective 10 minutes after administration and did not result in adverse effects (HR>90). [Order 1 End] [Order 2 Start] Name: hydrALAZINE (APRESOLINE) injection 20 mg Signed Summary: 20 mg, Intravenous, EVERY 1 HOUR NEEDED, Starting on Sun11/30/23 at 2127, Until Sun12/21/23 at 1420, Systolic Blood Pressure greater than 160 mmHg OR Diastolic Blood Pressure greater than 120 mmHg and heart rate LESS THAN 60 beats per minute. Higher dose may be administered if lower dose was previously documented as ineffective 10 minutes after administration and did not result in adverse effects (HR>90). Decrease back to lower dose if patient has adverse effects, or no PRN used in previous 3 hours. [Order 2 End] Start: 11-30-2023 End: 11-30-2023 take 10 mg intravenously every hour as needed Start: 11-30-2023 End: 11-30-2023 take 10 mg intravenously every hour as needed (3 sources) Start: 12-13-2023 End: 12-13-2023 1-171 mL, Intravenous, ONCE, 1 dose, On Afua 12/13/23 at [address] Procedure Start: 12-05-2023 End: 12-05-2023 1-171 mL, Intravenous, ONCE, 1 dose, On 12/05/23 at [address] Procedure Start: 11-29-2023 End: 11-29-2023 1-171 mL, Intravenous, ONCE, 1 dose, On Afua 11/29/23 at [address] Procedure (1 source) Start: 12-01-2023 End: 12-01-2023 250 mL, Intravenous, ONCE, 1 dose, On 12/01/23 at 0600 Fluid Bolus (1 source) Start: 11-30-2023 End: 12-07-2023 10-55 mL/hr, Nasogastric, CO NTINUOUS, Starting on Sun11/30/23 at 1200, Until Sun12/07/23 at 1552 Problems Active Problems Problem Classification Problem Date Documented Date Episodic/Chronic Acute cerebrovascular disease (16 sources) Ischemic stroke; Translations: [Cerebral infarction due to unspecified occlusion or stenosis of right middle cerebral artery] Onset: 11-29-2023 11-29-2023 Chronic Cardiac dysrhythmias (10 sources) Sinus bradycardia; Translations: [Bradycardia, unspecified] Episodic Conditions associated with dizziness or vertigo (10 sources) Benign paroxysmal positional vertigo; Translations: [Benign paroxysmal vertigo, unspecified ear] 06-28-2021 Episodic Deficiency and other anemia (2 sources) Anemia, unspecified; Translations: [Anemia, unspecified] Onset: 11-14-2024 Episodic Disorders of lipid metabolism (10 sources) Hyperlipidemia; Translations: [Hyperlipidemia, unspecified] 10-23-2014 Chronic Essential hypertension (19 sources) Hypertensive disorder; Translations: [Essential (primary) hypertension] Onset: 11-14-2024 10-23-2014 Chronic Nonspecific chest pain (10 sources) Chest pain at rest; Translations: [Chest pain, unspecified] 06-27-2021 Episodic Other and ill-defined cerebrovascular disease (2 sources) Other cerebrovascular vasospasm and vasoconstriction; 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] Onset: 11-29-2023 Chronic Other and ill-defined cerebrovascular disease (1 source) Cerebrovascular disease; 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] 12-12-2023 Chronic Other circulatory disease (9 sources) H/O: hypertension; Translations: [Personal history of other diseases of the circulatory system] 07-31-2022 Episodic Other circulatory disease (1 source) Personal history of other diseases of the circulatory system; Translations: [Personal history of other diseases of circulatory system] Episodic Other nervous system disorders (9 sources) Paresthesia; Translations: [Paresthesia of skin] 07-31-2022 Episodic Other nervous system disorders (1 source) Paresthesia of skin; Translations: [Disturbance of skin sensation] Episodic Other nutritional; endocrine; and metabolic disorders (10 sources) Body mass index 40+ - severely obese; Translations: [Morbid (severe) obesity due to excess calories] 06-27-2021 Chronic Past or Other Problems Problem Classification Problem Date Documented Da te Episodic/Chronic Deficiency and other anemia (3 sources) Anemia; Translations: [Anemia, unspecified] Onset: 12-07-2023 12-07-2023 Episodic Fluid and electrolyte disorders (3 sources) Disorder of electrolytes; Translations: [Other disorders of electrolyte and fluid balance, not elsewhere classified] Onset: 12-10-2023 12-10-2023 Episodic Results Test Name Value Interpretation Reference Range Facility Basic Metabolic Profile (BMP )on 04-15-2025 BUN/CRE 27.6 RATIO High 10-20 [facility] Comment on above: Order Comment: 103.1 Performed By: #### L 500.2500, L100.0500 #### [facility] [address] [place], [address] Calcium [Mass/Vol] 9.2 mg/dL Normal 7.6-11.0 [facility] Comment on above: Order Comment: 103.1 Performed By: #### L 500.2500, L100.0500 #### [facility] [address] [place], [address] Chloride [Moles/Vol] 110 mmol/L High 98-108 [facility] Comment on above: Order Comment: 103.1 Performed By: #### L 500.2500, L100.0500 #### [facility] [address] [place], [address] CO2 [Moles/Vol] 26.7 mmol/L Normal 21.0-32.0 [facility] Comment on above: Order Comment: 103.1 Performed By: #### L 500.2500, L100.0500 #### [facility] [address] [place], [address] Creatinine [Mass/Vol] 0.73 mg/dL Normal 0.70-1.20 [facility] Comment on above: Order Comment: 103.1 Performed By: #### L 500.2500, L100.0500 #### [facility] [address] [place], [address] GAP 8 Normal 5-15 [facility] Comment on above: Order Comment: 103.1 Performed By: #### L 500.2500, L100.0500 #### [facility] [address] [place], [address] GFR/1.73 sq M.predicted among non-blacks MDRD (S/P/Bld) [Vol rate/Area] 83 mL/min/{1.73_m2} Normal >60 [facility] Comment on above: Order Comment: 103.1 Result Comment: mL/m in/1.73m2 CKD-EPI Creatinine Equation (2020) Performed By: #### L 500.2500, L100.0500 #### [facility] [address] [place], [address] Glucose [Mass/Vol] 92 mg/dL Normal 70-99 [facility] Comment on above: Order Comment: 103.1 Performed By: #### L 500.2500, L100.0500 #### [facility] [address] [place], [address] Potassium [Moles/Vol] 4.2 mmol/L Normal 3.3-5.1 [facility] Comment on above: Order Comment: 103.1 Performed By: #### L 500.2500, L100.0500 #### [facility] [address] [place], [address] Sodium [Moles/Vol] 145 mmol/L Normal 133-145 [facility] Comment on above: Order Comment: 103.1 Performed By: #### L 500.2500, L100.0500 #### [facility] [address] [place], [address] Urea nitrogen [Mass/Vol] 20 mg/dL High 4-19 [facility] Comment on above: Order Comment: 103.1 Performed By: #### L 500.2500, L100.0500 #### [facility] [address] [place], [address] CBC-Complete Blood Cnt No Di ffon 04-15-2025 Erythrocyte distribution width (RBC) [Ratio] 13.7 % Normal 11.6-14.6 [facility] [facility] Comment on above: Order Comment: 103.1 Performed By: #### L 500.2500, L100.0500 #### [facility] [address] [place], [address] Hematocrit (Bld) [Volume fraction] 40.6 % Normal 37-47 [facility] Comment on above: Order Comment: 103.1 Performed By: #### L 500.2500, L100.0500 #### [facility] [address] [place], [address] Hemoglobin (Bld) [Mass/Vol] 13.0 g/dL Normal 12.0-15.0 [facility] Comment on above: Order Comment: 103.1 Performed By: #### L 500.2500, L100.0500 #### [facility] [address] [place], [address] MCH (RBC) [Entitic mass] 32.1 pg High 27.0-32.0 [facility] Comment on above: Order Comment: 103.1 Performed By: #### L 500.2500, L100.0500 #### [facility] [address] [place], [address] MCHC (RBC) [Mass/Vol] 32.0 g/dL Normal 32-36 [facility] Comment on above: Order Comment: 103.1 Performed By: #### L 500.2500, L100.0500 #### [facility] [address] [place], [address] MCV (RBC) [Entitic vol] 100.2 fL High 81-99 [facility] Comment on above: Order Comment: 103.1 Performed By: #### L 500.2500, L100.0500 #### [facility] [address] [place], [address] Platelet mean volume (Bld) [Entitic vol] 11.4 fL Normal 6.2-12.0 [facility] Comment on above: Order Comment: 103.1 Performed By: #### L 500.2500, L100.0500 #### [facility] [address] [place], [address] Platelets (Bld) [#/Vol] 169 10*3/uL Normal 150-450 [facility] Comment on above: Order Comment: 103.1 Performed By: #### L 500.2500, L100.0500 #### [facility] [address] [place], [address] RBC (Bld) [#/Vol] 4.05 10*6/uL Low 4.2-5.4 [facility] Comment on above: Order Comment: 103.1 Performed By: #### L 500.2500, L100.0500 #### [facility] [address] [place], [address] RDW SD 50.7 fl High 35.1-43.9 [facility] Comment on above: Order Comment: 103.1 Performed By: #### L 500.2500, L100.0500 #### [facility] [address] [place], [address] WBC (Bld) [#/Vol] 7.0 10*3/uL Normal 4.4-11.0 [facility] Comment on above: Order Comment: 103.1 Performed By: #### L 500.2500, L100.0500 #### [facility] [address] [place], [address] Basic Metabolic Profile (BMP )on 04-14-2025 BUN Normal 4-19 [facility] Comment on above: Order Comment: 103.1 Result Comment: UTO X2 Performed By: #### L 100.0500, L500.2500 #### [facility] [address] [place], [address] BUN/CRE Normal 10-20 [facility] Comment on above: Order Comment: 103.1 Result Comment: UTO X2 Performed By: #### L 100.0500, L500.2500 #### [facility] [address] [place], [address] Calcium Normal 7.6-11.0 [facility] Comment on above: Order Comment: 103.1 Result Comment: UTO X2 Performed By: #### L 100.0500, L500.2500 #### [facility] [address] [place], [address] CL Normal 98-108 [facility] Comment on above: Order Comment: 103.1 Result Comment: UTO X2 Performed By: #### L 100.0500, L500.2500 #### [facility] [address] [place], [address] CO2 Normal 21.0-32.0 [facility] Comment on above: Order Comment: 103.1 Result Comment: UTO X2 Performed By: #### L 100.0500, L500.2500 #### [facility] [address] [place], [address] CREAT,SERUM Normal 0.70-1.20 [facility] Comment on above: Order Comment: 103.1 Result Comment: UTO X2 Performed By: #### L 100.0500, L500.2500 #### [facility] [address] [place], [address] eGFR Normal >60 [facility] Comment on above: Order Comment: 103.1 Result Comment: UTO X2 Performed By: #### L 100.0500, L500.2500 #### [facility] [address] [place], [address] GAP Normal 5-15 [facility] Comment on above: Order Comment: 103.1 Result Comment: UTO X2 Performed By: #### L 100.0500, L500.2500 #### [facility] [address] [place], [address] GLU Normal 70-99 [facility] Comment on above: Order Comment: 103.1 Result Comment: UTO X2 Performed By: #### L 100.0500, L500.2500 #### [facility] [address] [place], [address] Potassium Normal 3.3-5.1 [facility] Comment on above: Order Comment: 103.1 Result Comment: UTO X2 Performed By: #### L 100.0500, L500.2500 #### [facility] [address] [place], [address] Basic Metabolic Profile (BMP) Normal 133-145 [facility] Comment on above: Order Comment: 103.1 Result Comment: UTO X2 Performed By: #### L 100.0500, L500.2500 #### [facility] [address] [place], [address] CBC-Complete Blood Cnt No Di ffon 04-14-2025 HCT Normal 37-47 [facility] Comment on above: Order Comment: 103.1 Result Comment: UTO X2 Performed By: #### L 100.0500, L500.2500 #### [facility] [address] [place], [address] HGB Normal 12.0-15.0 [facility] Comment on above: Order Comment: 103.1 Result Comment: UTO X2 Performed By: #### L 100.0500, L500.2500 #### [facility] [address] [place], [address] MCH Normal 27.0-32.0 [facility] Comment on above: Order Comment: 103.1 Result Comment: UTO X2 Performed By: #### L 100.0500, L500.2500 #### [facility] [address] [place], [address] MCHC Normal 32-36 [facility] Comment on above: Order Comment: 103.1 Result Comment: UTO X2 Performed By: #### L 100.0500, L500.2500 #### [facility] [address] [place], [address] MCV Normal 81-99 [facility] Comment on above: Order Comment: 103.1 Result Comment: UTO X2 Performed By: #### L 100.0500, L500.2500 #### [facility] [address] [place], [address] PLT Normal 150-450 [facility] Comment on above: Order Comment: 103.1 Result Comment: UTO X2 Performed By: #### L 100.0500, L500.2500 #### [facility] [address] [place], [address] RBC Normal 4.2-5.4 [facility] Comment on above: Order Comment: 103.1 Result Comment: UTO X2 Performed By: #### L 100.0500, L500.2500 #### [facility] [address] [place], [address] RDW CV Normal 11.6-14.6 [facility] Comment on above: Order Comment: 103.1 Result Comment: UTO X2 Performed By: #### L 100.0500, L500.2500 #### [facility] [address] [place], [address] RDW SD Normal 35.1-43.9 [facility] Comment on above: Order Comment: 103.1 Result Comment: UTO X2 Performed By: #### L 100.0500, L500.2500 #### [facility] [address] [place], [address] WBC Normal 4.4-11.0 [facility] Comment on above: Order Comment: 103.1 Result Comment: UTO X2 Performed By: #### L 100.0500, L500.2500 #### [facility] [address] [place], [address] Basic Metabolic Profile (BMP )on 10-13-2024 BUN/CRE 30.0 RATIO High 10-20 [facility] Comment on above: Performed By: #### L 500.2500, L100.0500 #### [facility] [address] [place], [address] CA,Total 8.6 mg/dL Normal 8.5-10.1 [facility] Comment on above: Performed By: #### L 500.2500, L100.0500 #### [facility] [address] [place], [address] Chloride [Moles/Vol] 111 mmol/L High 98-107 [facility] Comment on above: Performed By: #### L 500.2500, L100.0500 #### [facility] [address] [place], [address] CO2 [Moles/Vol] 28.0 mmol/L Normal 21.0-32.0 [facility] Comment on above: Performed By: #### L 500.2500, L100.0500 #### [facility] [address] [place], [address] Creatinine [Mass/Vol] 0.57 mg/dL Normal 0.55-1.02 [facility] Comment on above: Result Comment: The validity of the calculated GFR GFRAA in patients over 70 years has not been determined. Clinical correlation is essential. Performed By: #### L 500.2500, L100.0500 #### [facility] [address] [place], [address] EST GFR - AA 133 mL/min Normal >60 [facility] Comment on above: Result Comment: Afri can Moldovan GFR Calc Performed By: #### L 500.2500, L100.0500 #### [facility] [address] [place], [address] GAP 4 Low 5-15 [facility] Comment on above: Performed By: #### L 500.2500, L100.0500 #### [facility] [address] [place], [address] GFR/1.73 sq M.predicted among non-blacks MDRD (S/P/Bld) [Vol rate/Area] 110 mL/min/{1.73_m2} Normal >60 [facility] Comment on above: Result Comment: Non- GFR Calc Performed By: #### L 500.2500, L100.0500 #### [facility] [address] [place], [address] Glucose [Mass/Vol] 90 mg/dL Normal 74-106 [facility] Comment on above: Performed By: #### L 500.2500, L100.0500 #### [facility] [address] [place], [address] Potassium [Moles/Vol] 3.9 mmol/L Normal 3.5-5.1 [facility] Comment on above: Performed By: #### L 500.2500, L100.0500 #### [facility] [address] [place], [address] Sodium [Moles/Vol] 143 mmol/L Normal 136-145 [facility] Comment on above: Performed By: #### L 500.2500, L100.0500 #### [facility] [address] [place], [address] Urea nitrogen [Mass/Vol] 17 mg/dL Normal 7-18 [facility] Comment on above: Performed By: #### L 500.2500, L100.0500 #### [facility] [address] [place], [address] CBC-Complete Blood Cnt No Di ffon 10-13-2024 Erythrocyte distribution width (RBC) [Ratio] 13.9 % Normal 11.6-14.6 [facility] Comment on above: Performed By: #### L 500.2500, L100.0500 #### [facility] [address] [place], [address] Hematocrit (Bld) [Volume fraction] 36.3 % Low 37-47 [facility] Comment on above: Performed By: #### L 500.2500, L100.0500 #### [facility] [address] [place], [address] Hemoglobin (Bld) [Mass/Vol] 11.7 g/dL Low 12.0-15.0 [facility] Comment on above: Performed By: #### L 500.2500, L100.0500 #### [facility] [address] [place], [address] MCH (RBC) [Entitic mass] 31.5 pg Normal 27.0-32.0 [facility] Comment on above: Performed By: #### L 500.2500, L100.0500 #### [facility] [address] [place], [address] MCHC (RBC) [Mass/Vol] 32.2 g/dL Normal 32-36 [facility] Comment on above: Performed By: #### L 500.2500, L100.0500 #### [facility] [address] [place], [address] MCV (RBC) [Entitic vol] 97.6 fL Normal 81-99 [facility] Comment on above: Performed By: #### L 500.2500, L100.0500 #### [facility] [address] [place], [address] Platelet mean volume (Bld) [Entitic vol] 11.1 fL Normal 6.2-12.0 [facility] Comment on above: Performed By: #### L 500.2500, L100.0500 #### [facility] [address] [place], [address] Platelets (Bld) [#/Vol] 188 10*3/uL Normal 150-450 [facility] Comment on above: Performed By: #### L 500.2500, L100.0500 #### [facility] [address] [place], [address] RBC (Bld) [#/Vol] 3.72 10*6/uL Low 4.2-5.4 [facility] Comment on above: Performed By: #### L 500.2500, L100.0500 #### [facility] [address] [place], [address] RDW SD 49.5 fl High 35.1-43.9 [facility] Comment on above: Performed By: #### L 500.2500, L100.0500 #### [facility] [address] [place], [address] WBC (Bld) [#/Vol] 7.7 10*3/uL Normal 4.4-11.0 [facility] Comment on above: Performed By: #### L 500.2500, L100.0500 #### [facility] [address] [place], [address] Basophil percentageOrdered B y: Santo Dumont on 02-29-2024 Chloride [Moles/Vol] 106 mmol/L 98-107 [facility] Glucose [Mass/Vol] 120 mg/dL 74-106 [facility] Comment on above: Fasting Glucose resu lt from 100 to 125 mg/dL suggests IMPAIRED HOMEOSTASIS per A.D.A. criteria. Hemoglobin (Bld) [Mass/Vol] 11.9 g/dL 12.0-15.0 [facility] Potassium [Moles/Vol] 3.8 mmol/L 3.5-5.1 [facility] Sodium [Moles/Vol] 137 mmol/L 136-145 [facility] WBC (Bld) [#/Vol] 8.0 10*3/uL 4.4-11.0 [facility] Determination of erythrocyte mean corpuscular volume (MCV)Ordered By: Santo Dumont on 02-29-2024 MCV (RBC) [Entitic vol] 95.0 fL 81-99 [facility] Erythrocyte distribution wid th ratioOrdered By: Santo Dumont on 02-29-2024 Erythrocyte distribution width (RBC) [Ratio] 14.3 % 11.6-14.6 [facility] Erythrocyte distribution wid th standard deviationOrdered By: Santo Dumont on 02-29-2024 Erythrocyte distribution width (RBC) [Entitic vol] 50.1 fL 35.1-43.9 [facility] Hematocrit Auto (Bld) [Volum e fraction]Ordered By: Santo Dumont on 02-29-2024 Hematocrit (Bld) [Volume fraction] 38.0 % 37-47 [facility] - Chemistry and C hemistry - challengeOrdered By: Santo Dumont on 02-29-2024 CO2 [Moles/Vol] 28.0 mmol/L 21.0-32.0 [facility] Urea nitrogen/Creatinine [Mass ratio] 28.9 mg/mg 10-20 [facility] - Hematology and Cell countsOrdered By: Santo Dumont on 02-29-2024 MCH (RBC) [Entitic mass] 29.8 pg 27.0-32.0 [facility] MCHC (RBC) [Mass/Vol] 31.3 g/dL 32-36 [facility] Platelet mean volume (Bld) [Entitic vol] 10.7 fL 6.2-12.0 [facility] Platelets (Bld) [#/Vol] 259 10*3/uL 150-450 [facility] No Panel InformationOrdered By: Santo Dumont on 02-29-2024 Estimated GFR (MDRD) Amer 159 mL/min >60 [facility] Comment on above: GFR Calc Estimated GFR (MDRD) Non-Af Amer 131 mL/min >60 [facility] Comment on above: Non- GFR Calc RBC Auto (Bld) [#/Vol]Ordere d By: Santo Dumont on 02-29-2024 RBC (Bld) [#/Vol] 4.00 10*6/uL 4.2-5.4 [facility] Serum or plasma calcium christopher urement (mass/volume)Ordered By: Santo Dumont on 02-29-2024 Calcium [Mass/Vol] 9.0 mg/dL 8.5-10.1 [facility] Serum or plasma creatinine m easurement (mass/volume)Ordered By: Santo Dumont on 02-29-2024 Creatinine [Mass/Vol] 0.48 mg/dL 0.55-1.02 [facility] Comment on above: The validity of the calculated GFR & GFRAA in patients over 70 years has not been determined. Clinical correlation is essential. Serum or plasma urea nitroge n measurement (mass/volume)Ordered By: Santo Dumont on 02-29-2024 Urea nitrogen [Mass/Vol] 14 mg/dL 7-18 [facility] Thin prep Papanicolaou smear with manual screeningOrdered By: Santo Dumont on 02-29-2024 Thin prep Papanicolaou smear with manual screening 3 5-15 [facility] Basophil percentageOrdered B y: Santo Dumont on 02-20-2024 Chloride [Moles/Vol] 105 mmol/L 98-107 [facility] Glucose [Mass/Vol] 103 mg/dL 74-106 [facility] Comment on above: Fasting Glucose resu lt from 100 to 125 mg/dL suggests IMPAIRED HOMEOSTASIS per A.D.A. criteria. Hemoglobin (Bld) [Mass/Vol] 12.6 g/dL 12.0-15.0 [facility] Potassium [Moles/Vol] 3.6 mmol/L 3.5-5.1 [facility] Sodium [Moles/Vol] 141 mmol/L 136-145 [facility] WBC (Bld) [#/Vol] 8.5 10*3/uL 4.4-11.0 [facility] Determination of erythrocyte mean corpuscular volume (MCV)Ordered By: Santo Dumont on 02-20-2024 MCV (RBC) [Entitic vol] 95.7 fL 81-99 [facility] Erythrocyte distribution wid th ratioOrdered By: Santo Dumont on 02-20-2024 Erythrocyte distribution width (RBC) [Ratio] 14.5 % 11.6-14.6 [facility] Erythrocyte distribution wid th standard deviationOrdered By: Santo Dumont on 02-20-2024 Erythrocyte distribution width (RBC) [Entitic vol] 50.6 fL 35.1-43.9 [facility] Hematocrit Auto (Bld) [Volum e fraction]Ordered By: Santo Dumont on 02-20-2024 Hematocrit (Bld) [Volume fraction] 40.0 % 37-47 [facility] - Chemistry and C hemistry - challengeOrdered By: Santo Dumont on 02-20-2024 CO2 [Moles/Vol] 31.0 mmol/L 21.0-32.0 [facility] Urea nitrogen/Creatinine [Mass ratio] 23.0 mg/mg 10-20 [facility] - Hematology and Cell countsOrdered By: Santo Dumont on 02-20-2024 MCH (RBC) [Entitic mass] 30.1 pg 27.0-32.0 [facility] MCHC (RBC) [Mass/Vol] 31.5 g/dL 32-36 [facility] Platelet mean volume (Bld) [Entitic vol] 10.5 fL 6.2-12.0 [facility] Platelets (Bld) [#/Vol] 279 10*3/uL 150-450 [facility] No Panel InformationOrdered By: Santo Dumont on 02-20-2024 Estimated GFR (MDRD) Amer 133 mL/min >60 [facility] Comment on above: GFR Calc Estimated GFR (MDRD) Non-Af Amer 110 mL/min >60 [facility] Comment on above: Non- GFR Calc RBC Auto (Bld) [#/Vol]Ordere d By: Santo Dumont on 02-20-2024 RBC (Bld) [#/Vol] 4.18 10*6/uL 4.2-5.4 [facility] Serum or plasma calcium christopher urement (mass/volume)Ordered By: Santo Dumont on 02-20-2024 Calcium [Mass/Vol] 9.0 mg/dL 8.5-10.1 [facility] Serum or plasma creatinine m easurement (mass/volume)Ordered By: Santo Dumont on 02-20-2024 Creatinine [Mass/Vol] 0.56 mg/dL 0.55-1.02 [facility] Comment on above: The validity of the calculated GFR & GFRAA in patients over 70 years has not been determined. Clinical correlation is essential. Serum or plasma urea nitroge n measurement (mass/volume)Ordered By: Santo Dumont on 02-20-2024 Urea nitrogen [Mass/Vol] 13 mg/dL 7-18 [facility] Thin prep Papanicolaou smear with manual screeningOrdered By: Santo Dumont on 02-20-2024 Thin prep Papanicolaou smear with manual screening 5 5-15 [facility] Basophil percentageOrdered B y: Santo Dumont on 02-14-2024 Chloride [Moles/Vol] 107 mmol/L 98-107 [facility] Glucose [Mass/Vol] 111 mg/dL 74-106 [facility] Comment on above: Fasting Glucose resu lt from 100 to 125 mg/dL suggests IMPAIRED HOMEOSTASIS per A.D.A. criteria. Hemoglobin (Bld) [Mass/Vol] 11.8 g/dL 12.0-15.0 [facility] Potassium [Moles/Vol] 4.3 mmol/L 3.5-5.1 [facility] Sodium [Moles/Vol] 137 mmol/L 136-145 [facility] WBC (Bld) [#/Vol] 7.4 10*3/uL 4.4-11.0 [facility] Determination of erythrocyte mean corpuscular volume (MCV)Ordered By: Santo Dumont on 02-14-2024 MCV (RBC) [Entitic vol] 97.7 fL 81-99 [facility] Erythrocyte distribution wid th ratioOrdered By: Santo Dumont on 02-14-2024 Erythrocyte distribution width (RBC) [Ratio] 14.8 % 11.6-14.6 [facility] Erythrocyte distribution wid th standard deviationOrdered By: Santo Dumont on 02-14-2024 Erythrocyte distribution width (RBC) [Entitic vol] 53.4 fL 35.1-43.9 [facility] Hematocrit Auto (Bld) [Volum e fraction]Ordered By: Santo Dumont on 02-14-2024 Hematocrit (Bld) [Volume fraction] 38.2 % 37-47 [facility] - Chemistry and C hemistry - challengeOrdered By: Santo Dumont on 02-14-2024 CO2 [Moles/Vol] 28.0 mmol/L 21.0-32.0 [facility] Urea nitrogen/Creatinine [Mass ratio] 31.1 mg/mg 10-20 [facility] - Hematology and Cell countsOrdered By: Santo Dumont on 02-14-2024 MCH (RBC) [Entitic mass] 30.2 pg 27.0-32.0 [facility] MCHC (RBC) [Mass/Vol] 30.9 g/dL 32-36 [facility] Platelet mean volume (Bld) [Entitic vol] 10.3 fL 6.2-12.0 [facility] Platelets (Bld) [#/Vol] 246 10*3/uL 150-450 [facility] No Panel InformationOrdered By: Santo Dumont on 02-14-2024 Estimated GFR (MDRD) Amer 130 mL/min >60 [facility] Comment on above: GFR Calc Estimated GFR (MDRD) Non-Af Amer 107 mL/min >60 [facility] Comment on above: Non- GFR Calc RBC Auto (Bld) [#/Vol]Ordere d By: Santo Dumont on 02-14-2024 RBC (Bld) [#/Vol] 3.91 10*6/uL 4.2-5.4 [facility] Serum or plasma calcium christopher urement (mass/volume)Ordered By: Santo Dumont on 02-14-2024 Calcium [Mass/Vol] 9.0 mg/dL 8.5-10.1 [facility] Serum or plasma creatinine m easurement (mass/volume)Ordered By: Santo Dumont on 02-14-2024 Creatinine [Mass/Vol] 0.58 mg/dL 0.55-1.02 [facility] Comment on above: The validity of the calculated GFR & GFRAA in patients over 70 years has not been determined. Clinical correlation is essential. Serum or plasma urea nitroge n measurement (mass/volume)Ordered By: Santo Dumont on 02-14-2024 Urea nitrogen [Mass/Vol] 18 mg/dL 7-18 [facility] Thin prep Papanicolaou smear with manual screeningOrdered By: Santo Dumont on 02-14-2024 Thin prep Papanicolaou smear with manual screening 2 5-15 [facility] Basophil percentageOrdered B y: Santo Dumont on 02-07-2024 Chloride [Moles/Vol] 103 mmol/L 98-107 [facility] Glucose [Mass/Vol] 158 mg/dL 74-106 [facility] Comment on above: Fasting Glucose resu lt greater than or equal to 126 mg/dL suggests DIABETES MELLITUS per A.D.A. criteria. Hemoglobin (Bld) [Mass/Vol] 12.0 g/dL 12.0-15.0 [facility] Potassium [Moles/Vol] 4.4 mmol/L 3.5-5.1 [facility] Sodium [Moles/Vol] 136 mmol/L 136-145 [facility] WBC (Bld) [#/Vol] 8.2 10*3/uL 4.4-11.0 [facility] Determination of erythrocyte mean corpuscular volume (MCV)Ordered By: Santo Dumont on 02-07-2024 MCV (RBC) [Entitic vol] 95.3 fL 81-99 [facility] Erythrocyte distribution wid th ratioOrdered By: Santo Dumont on 02-07-2024 Erythrocyte distribution width (RBC) [Ratio] 14.9 % 11.6-14.6 [facility] Erythrocyte distribution wid th standard deviationOrdered By: Santo Dumont on 02-07-2024 Erythrocyte distribution width (RBC) [Entitic vol] 52.3 fL 35.1-43.9 [facility] Hematocrit Auto (Bld) [Volum e fraction]Ordered By: Santo Dumont on 02-07-2024 Hematocrit (Bld) [Volume fraction] 38.4 % 37-47 [facility] Laboratory - Chemistry and C hemistry - challengeOrdered By: Santo Dumont on 02-07-2024 CO2 [Moles/Vol] 27.0 mmol/L 21.0-32.0 [facility] Urea nitrogen/Creatinine [Mass ratio] 29.5 mg/mg 10-20 [facility] Laboratory - Hematology and Cell countsOrdered By: Santo Dumont on 02-07-2024 MCH (RBC) [Entitic mass] 29.8 pg 27.0-32.0 [facility] MCHC (RBC) [Mass/Vol] 31.3 g/dL 32-36 [facility] Platelet mean volume (Bld) [Entitic vol] 10.1 fL 6.2-12.0 [facility] Platelets (Bld) [#/Vol] 266 10*3/uL 150-450 [facility] No Panel InformationOrdered By: Santo Dumont on 02-07-2024 Estimated GFR (MDRD) Amer 150 mL/min >60 [facility] Comment on above: GFR Calc Estimated GFR (MDRD) Non-Af Amer 124 mL/min >60 [facility] Comment on above: Non- GFR Calc RBC Auto (Bld) [#/Vol]Ordere d By: Santo Dumont on 02-07-2024 RBC (Bld) [#/Vol] 4.03 10*6/uL 4.2-5.4 [facility] Serum or plasma calcium christopher urement (mass/volume)Ordered By: Santo Dumont on 02-07-2024 Calcium [Mass/Vol] 9.3 mg/dL 8.5-10.1 [facility] Serum or plasma creatinine m easurement (mass/volume)Ordered By: Santo Dumont on 02-07-2024 Creatinine [Mass/Vol] 0.51 mg/dL 0.55-1.02 [facility] Comment on above: The validity of the calculated GFR & GFRAA in patients over 70 years has not been determined. Clinical correlation is essential. Serum or plasma urea nitroge n measurement (mass/volume)Ordered By: Santo Dumont on 02-07-2024 Urea nitrogen [Mass/Vol] 15 mg/dL 7-18 [facility] Thin prep Papanicolaou smear with manual screeningOrdered By: Santo Dumont on 02-07-2024 Thin prep Papanicolaou smear with manual screening 6 5-15 [facility] Basophil percentageOrdered B y: Santo Dumont on 02-01-2024 Chloride [Moles/Vol] 103 mmol/L 98-107 [facility] Glucose [Mass/Vol] 129 mg/dL 74-106 [facility] Comment on above: Fasting Glucose resu lt greater than or equal to 126 mg/dL suggests DIABETES MELLITUS per A.D.A. criteria. Hemoglobin (Bld) [Mass/Vol] 11.1 g/dL 12.0-15.0 [facility] Potassium [Moles/Vol] 4.3 mmol/L 3.5-5.1 [facility] Sodium [Moles/Vol] 136 mmol/L 136-145 [facility] WBC (Bld) [#/Vol] 8.5 10*3/uL 4.4-11.0 [facility] Determination of erythrocyte mean corpuscular volume (MCV)Ordered By: Santo Dumont on 02-01-2024 MCV (RBC) [Entitic vol] 95.4 fL 81-99 [facility] Erythrocyte distribution wid th ratioOrdered By: Santo Dumont on 02-01-2024 Erythrocyte distribution width (RBC) [Ratio] 14.8 % 11.6-14.6 [facility] Erythrocyte distribution wid th standard deviationOrdered By: Santo Dumont on 02-01-2024 Erythrocyte distribution width (RBC) [Entitic vol] 51.4 fL 35.1-43.9 [facility] Hematocrit Auto (Bld) [Volum e fraction]Ordered By: Santo Dumont on 02-01-2024 Hematocrit (Bld) [Volume fraction] 35.5 % 37-47 [facility] Laboratory - Chemistry and C hemistry - challengeOrdered By: Santo Dumont on 02-01-2024 CO2 [Moles/Vol] 29.0 mmol/L 21.0-32.0 [facility] Urea nitrogen/Creatinine [Mass ratio] 35.7 mg/mg 10-20 [facility] Laboratory - Hematology and Cell countsOrdered By: Santo Dumont on 02-01-2024 MCH (RBC) [Entitic mass] 29.8 pg 27.0-32.0 [facility] MCHC (RBC) [Mass/Vol] 31.3 g/dL 32-36 [facility] Platelet mean volume (Bld) [Entitic vol] 10.4 fL 6.2-12.0 [facility] Platelets (Bld) [#/Vol] 259 10*3/uL 150-450 [facility] No Panel InformationOrdered By: Santo Dumont on 02-01-2024 Estimated GFR (MDRD) Amer 162 mL/min >60 [facility] Comment on above: GFR Calc Estimated GFR (MDRD) Non-Af Amer 134 mL/min >60 [facility] Comment on above: Non- GFR Calc RBC Auto (Bld) [#/Vol]Ordere d By: Santo Dumont on 02-01-2024 RBC (Bld) [#/Vol] 3.72 10*6/uL 4.2-5.4 [facility] Serum or plasma calcium christopher urement (mass/volume)Ordered By: Santo Dumont on 02-01-2024 Calcium [Mass/Vol] 8.8 mg/dL 8.5-10.1 [facility] Serum or plasma creatinine m easurement (mass/volume)Ordered By: Santo Dumont on 02-01-2024 Creatinine [Mass/Vol] 0.48 mg/dL 0.55-1.02 [facility] Comment on above: The validity of the calculated GFR & GFRAA in patients over 70 years has not been determined. Clinical correlation is essential. Serum or plasma urea nitroge n measurement (mass/volume)Ordered By: Santo Dumont on 02-01-2024 Urea nitrogen [Mass/Vol] 17 mg/dL 7-18 [facility] Thin prep Papanicolaou smear with manual screeningOrdered By: Santo Dumont on 02-01-2024 Thin prep Papanicolaou smear with manual screening 4 5-15 [facility] Basophil percentageOrdered B y: Santo Dumont on 01-25-2024 Chloride [Moles/Vol] 103 mmol/L 98-107 [facility] Glucose [Mass/Vol] 156 mg/dL 74-106 [facility] Comment on above: Fasting Glucose resu lt greater than or equal to 126 mg/dL suggests DIABETES MELLITUS per A.D.A. criteria. Hemoglobin (Bld) [Mass/Vol] 11.3 g/dL 12.0-15.0 [facility] Potassium [Moles/Vol] 4.2 mmol/L 3.5-5.1 [facility] Sodium [Moles/Vol] 136 mmol/L 136-145 [facility] WBC (Bld) [#/Vol] 9.0 10*3/uL 4.4-11.0 [facility] Determination of erythrocyte mean corpuscular volume (MCV)Ordered By: Santo Dumont on 01-25-2024 MCV (RBC) [Entitic vol] 96.3 fL 81-99 [facility] Erythrocyte distribution wid th ratioOrdered By: Santo Dumont on 01-25-2024 Erythrocyte distribution width (RBC) [Ratio] 14.6 % 11.6-14.6 [facility] Erythrocyte distribution wid th standard deviationOrdered By: Santo Dumont on 01-25-2024 Erythrocyte distribution width (RBC) [Entitic vol] 50.7 fL 35.1-43.9 [facility] Hematocrit Auto (Bld) [Volum e fraction]Ordered By: Santo Dumont on 01-25-2024 Hematocrit (Bld) [Volume fraction] 36.0 % 37-47 [facility] Laboratory - Chemistry and C hemistry - challengeOrdered By: Santo Dumont on 01-25-2024 CO2 [Moles/Vol] 27.0 mmol/L 21.0-32.0 [facility] Urea nitrogen/Creatinine [Mass ratio] 46.2 mg/mg 10-20 [facility] Laboratory - Hematology and Cell countsOrdered By: Santo Dumont on 01-25-2024 MCH (RBC) [Entitic mass] 30.2 pg 27.0-32.0 [facility] MCHC (RBC) [Mass/Vol] 31.4 g/dL 32-36 [facility] Platelet mean volume (Bld) [Entitic vol] 11.0 fL 6.2-12.0 [facility] Platelets (Bld) [#/Vol] 248 10*3/uL 150-450 [facility] No Panel InformationOrdered By: Santo Dumont on 01-25-2024 Estimated GFR (MDRD) Amer 154 mL/min >60 [facility] Comment on above: GFR Calc Estimated GFR (MDRD) Non-Af Amer 127 mL/min >60 [facility] Comment on above: Non- GFR Calc RBC Auto (Bld) [#/Vol]Ordere d By: Santo Dumont on 01-25-2024 RBC (Bld) [#/Vol] 3.74 10*6/uL 4.2-5.4 [facility] Serum or plasma calcium christopher urement (mass/volume)Ordered By: Santo Dumont on 01-25-2024 Calcium [Mass/Vol] 9.0 mg/dL 8.5-10.1 [facility] Serum or plasma creatinine m easurement (mass/volume)Ordered By: Santo Dumont on 01-25-2024 Creatinine [Mass/Vol] 0.50 mg/dL 0.55-1.02 [facility] Comment on above: The validity of the calculated GFR & GFRAA in patients over 70 years has not been determined. Clinical correlation is essential. Serum or plasma urea nitroge n measurement (mass/volume)Ordered By: Santo Dumont on 01-25-2024 Urea nitrogen [Mass/Vol] 23 mg/dL 06-05 [facility] Thin prep Papanicolaou smear with manual screeningOrdered By: Santo Dumont on 01-25-2024 Thin prep Papanicolaou smear with manual screening 6 04-02 [facility] CBC,PLATELETSon 12-21-2023 Erythrocyte distribution width (RBC) [Ratio] 13.6 % 10.8 - 14.9 % [facility] Hematocrit (Bld) [Volume fraction] 32.4 % Low 34.9 - 44.3 % [facility] Hemoglobin (Bld) [Mass/Vol] 10.2 g/dL Low 11.4 - 15.2 g/dL [facility] Interpretation and review of laboratory results Abnormal [facility] MCH (RBC) [Entitic mass] 30.3 pg 25.9 - 33.9 pg [facility] MCHC (RBC) [Mass/Vol] 31.5 g/dL 31.4 - 35.9 g/dL [facility] MCV (RBC) [Entitic vol] 96.1 fL 79.6 - 97.7 fL [facility] Platelet mean volume (Bld) [Entitic vol] 10.1 fL 8.5 - 12.2 fL [facility] Platelets (Bld) [#/Vol] 272 10*3/uL 150 - 393 K/uL [facility] RBC (Bld) [#/Vol] 3.37 10*6/uL Low [facility] WBC (Bld) [#/Vol] 8.07 10*3/uL 3.99 - 11. 19 K/uL [facility] CHEM 7 (LYTES,BUN,CREA,GLUC) on 12-21-2023 Anion gap [Moles/Vol] 13 mmol/L 7 - 17 mmol/L [facility] Chloride [Moles/Vol] 106 mmol/L 98 - 10 8 mmol/L [facility] CO2 [Moles/Vol] 25 mmol/L 21 - 31 mmol/L [facility] Creatinine [Mass/Vol] 0.47 mg/dL Low 0.50 - 1.20 mg/dL [facility] eGFR, CKD-EPI, Female - PINF [facility] Glucose [Mass/Vol] 142 mg/dL High 70 - 99 mg/dL [facility] Interpretation and review of laboratory results Abnormal [facility] Osmolality Calc [Osmolality] 298 [facility] Potassium [Moles/Vol] 3.9 mmol/L 3.5 - 5.0 mmol/L [facility] Sodium [Moles/Vol] 140 mmol/L 135 - 145 mmol/L [facility] Urea nitrogen [Mass/Vol] 20 mg/dL 7 - 25 mg/dL [facility] Urea nitrogen/Creatinine [Mass ratio] 43 mg/mg [facility] MAGNESIUMon 12-21-2023 Interpretation and review of laboratory results Normal [facility] Magnesium [Mass/Vol] 1.7 mg/dL 1.6 - 2 .6 mg/dL [facility] No Panel Informationon 12-21 [facility] ECGOrdered By: Partha Lindquist i on 12-20-2023 [facility] Work Phone: CBC,PLATELETSon 12-19-2023 Erythrocyte distribution width (RBC) [Ratio] 13.3 % 10.8 - 14.9 % [facility] Hematocrit (Bld) [Volume fraction] 34.4 % Low 34.9 - 44.3 % [facility] Hemoglobin (Bld) [Mass/Vol] 10.8 g/dL Low 11.4 - 15.2 g/dL [facility] Interpretation and review of laboratory results Abnormal [facility] MCH (RBC) [Entitic mass] 30.4 pg 25.9 - 33.9 pg [facility] MCHC (RBC) [Mass/Vol] 31.4 g/dL 31.4 - 35.9 g/dL [facility] MCV (RBC) [Entitic vol] 96.9 fL 79.6 - 97.7 fL [facility] Platelet mean volume (Bld) [Entitic vol] 10.1 fL 8.5 - 12.2 fL [facility] Platelets (Bld) [#/Vol] 320 10*3/uL 150 - 393 K/uL [facility] RBC (Bld) [#/Vol] 3.55 10*6/uL Low [facility] WBC (Bld) [#/Vol] 11.96 10*3/uL High 3.99 - 11 .19 K/uL [facility] CHEM 7 (LYTES,BUN,CREA,GLUC) on 12-19-2023 Anion gap [Moles/Vol] 13 mmol/L 7 - 17 mmol/L [facility] Chloride [Moles/Vol] 103 mmol/L 98 - 10 8 mmol/L [facility] CO2 [Moles/Vol] 27 mmol/L 21 - 31 mmol/L [facility] Creatinine [Mass/Vol] 0.56 mg/dL 0.50 - 1.20 mg/dL [facility] eGFR, CKD-EPI, Female - PINF [facility] Glucose [Mass/Vol] 91 mg/dL 70 - 99 mg/dL [facility] Osmolality Calc [Osmolality] 293 [facility] Potassium [Moles/Vol] 4.2 mmol/L 3.5 - 5.0 mmol/L [facility] Sodium [Moles/Vol] 139 mmol/L 135 - 145 mmol/L [facility] Urea nitrogen [Mass/Vol] 19 mg/dL 7 - 25 mg/dL [facility] Urea nitrogen/Creatinine [Mass ratio] 34 mg/mg [facility] PLATELET COUNTon 12-19-2023 Interpretation and review of laboratory results Normal [facility] Platelet mean volume (Bld) [Entitic vol] 10.1 fL 8.5 - 12.2 fL [facility] Platelets (Bld) [#/Vol] 320 10*3/uL 150 - 393 K/uL [facility] CARDIAC RHYTHM (SCANNED)on 0 12-18-2023 [facility] CBC,PLATELETSon 12-18-2023 Erythrocyte distribution width (RBC) [Ratio] 13.3 % 10.8 - 14.9 % [facility] Hematocrit (Bld) [Volume fraction] 34.3 % Low 34.9 - 44.3 % [facility] Hemoglobin (Bld) [Mass/Vol] 10.7 g/dL Low 11.4 - 15.2 g/dL [facility] Interpretation and review of laboratory results Abnormal [facility] MCH (RBC) [Entitic mass] 30.1 pg 25.9 - 33.9 pg [facility] MCHC (RBC) [Mass/Vol] 31.2 g/dL Low 31.4 - 35.9 g/dL [facility] MCV (RBC) [Entitic vol] 96.3 fL 79.6 - 97.7 fL [facility] Platelet mean volume (Bld) [Entitic vol] 10.1 fL 8.5 - 12.2 fL [facility] Platelets (Bld) [#/Vol] 352 10*3/uL 150 - 393 K/uL [facility] RBC (Bld) [#/Vol] 3.56 10*6/uL Low [facility] WBC (Bld) [#/Vol] 11.26 10*3/uL High 3.99 - 11 .19 K/uL [facility] CHEM 7 (LYTES,BUN,CREA,GLUC) on 12-18-2023 Anion gap [Moles/Vol] 13 mmol/L 7 - 17 mmol/L [facility] Chloride [Moles/Vol] 102 mmol/L 98 - 10 8 mmol/L [facility] CO2 [Moles/Vol] 27 mmol/L 21 - 31 mmol/L [facility] Creatinine [Mass/Vol] 0.48 mg/dL Low 0.50 - 1.20 mg/dL [facility] eGFR, CKD-EPI, Female - PINF [facility] Glucose [Mass/Vol] 123 mg/dL High 70 - 99 mg/dL [facility] Interpretation and review of laboratory results Abnormal [facility] Osmolality Calc [Osmolality] 294 [facility] Potassium [Moles/Vol] 4.7 mmol/L 3.5 - 5.0 mmol/L [facility] Sodium [Moles/Vol] 137 mmol/L 135 - 145 mmol/L [facility] Urea nitrogen [Mass/Vol] 23 mg/dL 7 - 25 mg/dL [facility] Urea nitrogen/Creatinine [Mass ratio] 48 mg/mg [facility] MAGNESIUMon 12-18-2023 Interpretation and review of laboratory results Normal [facility] Magnesium [Mass/Vol] 2.1 mg/dL 1.6 - 2 .6 mg/dL [facility] No Panel Informationon 12-18 [facility] PT,INR,PTTon 12-18-2023 aPTT Coag (PPP) [Time] 25.1 s [facility] INR Coag (Bld) [Relative time] 1.0 {INR} 0.9 - 1.1 [facility] Interpretation and review of laboratory results Normal [facility] PT Coag (PPP) [Time] 13.3 s [facility] CBC,PLATELETSon 12-17-2023 Erythrocyte distribution width (RBC) [Ratio] 13.2 % 10.8 - 14.9 % [facility] Hematocrit (Bld) [Volume fraction] 34.6 % Low 34.9 - 44.3 % [facility] Hemoglobin (Bld) [Mass/Vol] 10.9 g/dL Low 11.4 - 15.2 g/dL [facility] Interpretation and review of laboratory results Abnormal [facility] MCH (RBC) [Entitic mass] 30.1 pg 25.9 - 33.9 pg [facility] MCHC (RBC) [Mass/Vol] 31.5 g/dL 31.4 - 35.9 g/dL [facility] MCV (RBC) [Entitic vol] 95.6 fL 79.6 - 97.7 fL [facility] Platelet mean volume (Bld) [Entitic vol] 10.2 fL 8.5 - 12.2 fL [facility] Platelets (Bld) [#/Vol] 372 10*3/uL 150 - 393 K/uL [facility] RBC (Bld) [#/Vol] 3.62 10*6/uL Low [facility] WBC (Bld) [#/Vol] 11.65 10*3/uL High 3.99 - 11 .19 K/uL [facility] CHEM 7 (LYTES,BUN,CREA,GLUC) on 12-17-2023 Anion gap [Moles/Vol] 12 mmol/L 7 - 17 mmol/L [facility] Chloride [Moles/Vol] 102 mmol/L 98 - 10 8 mmol/L [facility] CO2 [Moles/Vol] 27 mmol/L 21 - 31 mmol/L [facility] Creatinine [Mass/Vol] 0.48 mg/dL Low 0.50 - 1.20 mg/dL [facility] eGFR, CKD-EPI, Female - PINF [facility] Glucose [Mass/Vol] 138 mg/dL High 70 - 99 mg/dL [facility] Interpretation and review of laboratory results Abnormal [facility] Osmolality Calc [Osmolality] 291 [facility] Potassium [Moles/Vol] 4.6 mmol/L 3.5 - 5.0 mmol/L [facility] Sodium [Moles/Vol] 136 mmol/L 135 - 145 mmol/L [facility] Urea nitrogen [Mass/Vol] 20 mg/dL 7 - 25 mg/dL [facility] Urea nitrogen/Creatinine [Mass ratio] 42 mg/mg [facility] FLEXIBLE ENDOSCOPIC EVALUATI ON OF SWALLOWINGon 12-17-2023 RADIOLOGY [facility] MAGNESIUMon 12-17-2023 Interpretation and review of laboratory results Normal [facility] Magnesium [Mass/Vol] 2.0 mg/dL 1.6 - 2 .6 mg/dL [facility] No Panel Informationon 12-17 [facility] US.doppler Carotid arteries - bilateralon 12-17-2023 [facility] Radiology Study observation (narrative) [facility] CBC,PLATELETSon 12-16-2023 Erythrocyte distribution width (RBC) [Ratio] 13.2 % 10.8 - 14.9 % [facility] Hematocrit (Bld) [Volume fraction] 32.8 % Low 34.9 - 44.3 % [facility] Hemoglobin (Bld) [Mass/Vol] 10.6 g/dL Low 11.4 - 15.2 g/dL [facility] Interpretation and review of laboratory results Abnormal [facility] MCH (RBC) [Entitic mass] 30.3 pg 25.9 - 33.9 pg [facility] MCHC (RBC) [Mass/Vol] 32.3 g/dL 31.4 - 35.9 g/dL [facility] MCV (RBC) [Entitic vol] 93.7 fL 79.6 - 97.7 fL [facility] Platelet mean volume (Bld) [Entitic vol] 10.2 fL 8.5 - 12.2 fL [facility] Platelets (Bld) [#/Vol] 399 10*3/uL High 150 - 393 K/uL [facility] RBC (Bld) [#/Vol] 3.50 10*6/uL Low [facility] WBC (Bld) [#/Vol] 11.38 10*3/uL High 3.99 - 11 .19 K/uL [facility] CHEM 7 (LYTES,BUN,CREA,GLUC) on 12-16-2023 Anion gap [Moles/Vol] 12 mmol/L 7 - 17 mmol/L [facility] Chloride [Moles/Vol] 101 mmol/L 98 - 10 8 mmol/L [facility] CO2 [Moles/Vol] 26 mmol/L 21 - 31 mmol/L [facility] Creatinine [Mass/Vol] 0.47 mg/dL Low 0.50 - 1.20 mg/dL [facility] eGFR, CKD-EPI, Female - PINF [facility] Glucose [Mass/Vol] 153 mg/dL High 70 - 99 mg/dL [facility] Interpretation and review of laboratory results Abnormal [facility] Osmolality Calc [Osmolality] 288 [facility] Potassium [Moles/Vol] 4.6 mmol/L 3.5 - 5.0 mmol/L [facility] Sodium [Moles/Vol] 134 mmol/L Low 135 - 145 mmol/L [facility] Urea nitrogen [Mass/Vol] 19 mg/dL 7 - 25 mg/dL [facility] Urea nitrogen/Creatinine [Mass ratio] 40 mg/mg [facility] MAGNESIUMon 12-16-2023 Interpretation and review of laboratory results Normal [facility] Magnesium [Mass/Vol] 1.9 mg/dL 1.6 - 2 .6 mg/dL [facility] No Panel Informationon 12-16 [facility] CBC,PLATELETSon 12-15-2023 Hematocrit (Bld) [Volume fraction] 32.0 % Low 34.9-44.3 [facility] Comment on above: Performed By: #### JEAN MARIE LA #### [facility] (DEFAULT) [address] [place] [id number] Hemoglobin (Bld) [Mass/Vol] 10.3 g/dL Low 11.4-15.2 [facility] Comment on above: Performed By: #### M GO, CHM7 #### [facility] (DEFAULT) [address] [place] [address] MCV (RBC) [Entitic vol] 93.8 fL Normal 79.6-97.7 [facility] Comment on above: Performed By: #### Iraida ALLEN CHM7 #### [facility] (DEFAULT) [address] [place] [address] Mean Cell Hgb 30.2 pg Normal 25.9-33.9 [facility] Comment on above: Performed By: #### M ALEJANDRO CHM7 #### [facility] (DEFAULT) [address] [place] [address] Mean Cell Hgb Conc 32.2 g/dL Normal 31.4-35.9 [facility] Comment on above: Performed By: #### Iraida ALLEN CHM7 #### [facility] (DEFAULT) [address] [place] [address] Platelet mean volume (Bld) [Entitic vol] 10.1 fL Normal 8.5-12.2 [facility] Comment on above: Performed By: #### Iraida ALLEN CHM7 #### [facility] (DEFAULT) [address] [place] [address] Platelets (Bld) [#/Vol] 387 10*3/uL Normal 150-393 [facility] Comment on above: Performed By: #### Iraida ALLEN CHM7 #### [facility] (DEFAULT) [address] [place] [address] RBC (Bld) [#/Vol] 3.41 10*6/uL Low 3.91-5.04 [facility] Comment on above: Performed By: #### Iraida ALLEN CHM7 #### [facility] (DEFAULT) [address] [address] RBC Distribution 13.0 % Normal 10.8-14.9 [facility] Comment on above: Performed By: #### Iraida ALLEN CHM7 #### [facility] (DEFAULT) [address] [place] [address] WBC (Bld) [#/Vol] 10.99 10*3/uL Normal 3.99-11.19 [facility] Comment on above: Performed By: #### JEAN MARIE LA #### [facility] (DEFAULT) [address] [place] [address] Erythrocyte distribution width (RBC) [Ratio] 13.0 % 10.8 - 14.9 % [facility] Hematocrit (Bld) [Volume fraction] 32.0 % Low 34.9 - 44.3 % [facility] Hemoglobin (Bld) [Mass/Vol] 10.3 g/dL Low 11.4 - 15.2 g/dL [facility] Interpretation and review of laboratory results Abnormal [facility] MCH (RBC) [Entitic mass] 30.2 pg 25.9 - 33.9 pg [facility] MCHC (RBC) [Mass/Vol] 32.2 g/dL 31.4 - 35.9 g/dL [facility] MCV (RBC) [Entitic vol] 93.8 fL 79.6 - 97.7 fL [facility] Platelet mean volume (Bld) [Entitic vol] 10.1 fL 8.5 - 12.2 fL [facility] Platelets (Bld) [#/Vol] 387 10*3/uL 150 - 393 K/uL [facility] RBC (Bld) [#/Vol] 3.41 10*6/uL Low [facility] WBC (Bld) [#/Vol] 10.99 10*3/uL 3.99 - 11 .19 K/uL [facility] CHEM 7 (LYTES,BUN,CREA,GLUC) on 12-15-2023 Anion gap [Moles/Vol] 12 mmol/L Normal 7-17 [facility] Comment on above: Performed By: #### JEAN MARIE LA #### [facility] (DEFAULT) [address] [place] [address] Chloride [Moles/Vol] 101 mmol/L Normal 98-108 [facility] Comment on above: Performed By: #### LUCIANO LA7 #### [facility] (DEFAULT) [address] [place] [address]30 CO2 [Moles/Vol] 25 mmol/L Normal 21-31 [facility] Comment on above: Performed By: #### LUCIANO LA7 #### [facility] (DEFAULT) [address] [place] [address] 87618 Creatinine [Mass/Vol] 0.51 mg/dL Normal 0.50-1.20 [facility] Comment on above: Performed By: #### LUCIANO LA7 #### [facility] (DEFAULT) [address] [place] [address] 75875 eGFR, CKD-EPI, Female > Normal >=60 [facility] Comment on above: Result Comment: Repo rted eGFR is based on the CKD-EPI 2020 equation using creatinine, age, and sex. Performed By: #### JEAN MARIE LA #### [facility] (DEFAULT) [address] [place] [address] 37530 Glucose [Mass/Vol] 154 mg/dL High 70-99 [facility] Comment on above: Performed By: #### LUCIANO LA7 #### [facility] (DEFAULT) [address] [place] [address]13 Osmolality [Osmolality] 288 mosm/kg Normal 278-305 [facility] Comment on above: Performed By: #### JEAN MARIE LA #### [facility] (DEFAULT) [address] [place] [address] 47651 Potassium [Moles/Vol] 4.1 mmol/L Normal 3.5-5.0 [facility] Comment on above: Performed By: #### LUCIANO LA7 #### [facility] (DEFAULT) [address] [place] [address] 32124 Sodium [Moles/Vol] 134 mmol/L Low 135-145 [facility] Comment on above: Performed By: #### LUCIANO LA7 #### [facility] (DEFAULT) [address] [place] [address] Urea nitrogen [Mass/Vol] 21 mg/dL Normal 7-25 [facility] Comment on above: Performed By: #### LUCIANO LA7 #### [facility] (DEFAULT) [address] [place] [address] 86814 Urea nitrogen/Creatinine [Mass ratio] 41 mg/mg Normal [facility] Comment on above: Performed By: #### LUCIANO AL7 #### [facility] (DEFAULT) [address] [place] [address] 87539 Anion gap [Moles/Vol] 12 mmol/L 7 - 17 mmol/L [facility] Chloride [Moles/Vol] 101 mmol/L 98 - 10 8 mmol/L [facility] CO2 [Moles/Vol] 25 mmol/L 21 - 31 mmol/L [facility] Creatinine [Mass/Vol] 0.51 mg/dL 0.50 - 1.20 mg/dL [facility] eGFR, CKD-EPI, Female - PINF [facility] Glucose [Mass/Vol] 154 mg/dL High 70 - 99 mg/dL [facility] Interpretation and review of laboratory results Abnormal [facility] Osmolality Calc [Osmolality] 288 [facility] Potassium [Moles/Vol] 4.1 mmol/L 3.5 - 5.0 mmol/L [facility] Sodium [Moles/Vol] 134 mmol/L Low 135 - 145 mmol/L [facility] Urea nitrogen [Mass/Vol] 21 mg/dL 7 - 25 mg/dL [facility] Urea nitrogen/Creatinine [Mass ratio] 41 mg/mg [facility] MAGNESIUMon 12-15-2023 Magnesium [Mass/Vol] 1.9 mg/dL Normal 1.6-2.6 [facility] Comment on above: Performed By: #### M ALEJANDRO CHM7 #### [facility] (DEFAULT) [address] [address] Interpretation and review of laboratory results Normal [facility] Magnesium [Mass/Vol] 1.9 mg/dL 1.6 - 2 .6 mg/dL [facility] No Panel Informationon 12-15 [facility] CBC,PLATELETSon 12-14-2023 Hematocrit (Bld) [Volume fraction] 32.5 % Low 34.9-44.3 [facility] Comment on above: Performed By: #### [facility] #### [facility] (DEFAULT) [address] [address] Hemoglobin (Bld) [Mass/Vol] 10.5 g/dL Low 11.4-15.2 [facility] Comment on above: Performed By: #### H EMO #### [facility] (DEFAULT) [address] [address] MCV (RBC) [Entitic vol] 94.8 fL Normal 79.6-97.7 O [facility] Comment on above: Performed By: #### H EMOCROW #### [facility] (DEFAULT) [address] [address] Mean Cell Hgb 30.6 pg Normal 25.9-33.9 [facility] Comment on above: Performed By: #### H EMO #### [facility] (DEFAULT) [address] [address] Mean Cell Hgb Conc 32.3 g/dL Normal 31.4-35.9 [facility] Comment on above: Performed By: #### H EMOGC #### [facility] (DEFAULT) [address] [address] Platelet mean volume (Bld) [Entitic vol] 10.2 fL Normal 8.5-12.2 [facility] Comment on above: Performed By: #### H EMOGC #### [facility] (DEFAULT) [address] [place] [address] Platelets (Bld) [#/Vol] 390 10*3/uL Normal 150-393 [facility] Comment on above: Performed By: #### H EMOGC #### [facility] (DEFAULT) [address] [place] [address] 91402 RBC (Bld) [#/Vol] 3.43 10*6/uL Low 3.91-5.04 [facility] Comment on above: Performed By: #### H EMOGC #### [facility] (DEFAULT) [address] [place] [address]393 RBC Distribution 13.1 % Normal 10.8-14.9 [facility] Comment on above: Performed By: #### H EMOGC #### [facility] (DEFAULT) [address] [place] [address]25 WBC (Bld) [#/Vol] 10.04 10*3/uL Normal 3.99-11.19 [facility] Comment on above: Performed By: #### H EMO #### [facility] (DEFAULT) [address] [place] [address]32 Erythrocyte distribution width (RBC) [Ratio] 13.1 % 10.8 - 14.9 % [facility] Hematocrit (Bld) [Volume fraction] 32.5 % Low 34.9 - 44.3 % [facility] Hemoglobin (Bld) [Mass/Vol] 10.5 g/dL Low 11.4 - 15.2 g/dL [facility] Interpretation and review of laboratory results Abnormal [facility] MCH (RBC) [Entitic mass] 30.6 pg 25.9 - 33.9 pg [facility] MCHC (RBC) [Mass/Vol] 32.3 g/dL 31.4 - 35.9 g/dL [facility] MCV (RBC) [Entitic vol] 94.8 fL 79.6 - 97.7 fL [facility] Platelet mean volume (Bld) [Entitic vol] 10.2 fL 8.5 - 12.2 fL [facility] Platelets (Bld) [#/Vol] 390 10*3/uL 150 - 393 K/uL [facility] RBC (Bld) [#/Vol] 3.43 10*6/uL Low [facility] WBC (Bld) [#/Vol] 10.04 10*3/uL 3.99 - 11 .19 K/uL [facility] CHEM 7 (LYTES,BUN,CREA,GLUC) on 12-14-2023 Anion gap [Moles/Vol] 9 mmol/L Normal 7-17 [facility] Comment on above: Performed By: #### 1 0DRUG #### [facility] (DEFAULT) [address] [place] [address]268 Chloride [Moles/Vol] 100 mmol/L Normal 98-108 [facility] Comment on above: Performed By: #### 1 0DRUG #### [facility] (DEFAULT) [address] [place] [address] 45746 CO2 [Moles/Vol] 26 mmol/L Normal 21-31 [facility] Comment on above: Performed By: #### 1 0DRUG #### [facility] (DEFAULT) [address] [place] [address] 70864 Creatinine [Mass/Vol] 0.51 mg/dL Normal 0.50-1.20 [facility] Comment on above: Performed By: #### 1 0DRUG #### [facility] (DEFAULT) [address] [place] [address] 06342 eGFR, CKD-EPI, Female > Normal >=60 [facility] Comment on above: Result Comment: Repo rted eGFR is based on the CKD-EPI 2020 equation using creatinine, age, and sex. Performed By: #### 1 0DRUG #### [facility] (DEFAULT) [address] [place] [address] 17181 Glucose [Mass/Vol] 107 mg/dL High 70-99 [facility] Comment on above: Performed By: #### 1 0DRUG #### [facility] (DEFAULT) [address] [place] [address] 78721 Osmolality [Osmolality] 280 mosm/kg Normal 278-305 [facility] Comment on above: Performed By: #### 1 0DRUG #### [facility] (DEFAULT) [address] [place] [address] 87139 Potassium [Moles/Vol] 4.4 mmol/L Normal 3.5-5.0 [facility] Comment on above: Performed By: #### 1 0DRUG #### [facility] (DEFAULT) [address] [place] [address] 96318 Sodium [Moles/Vol] 131 mmol/L Low 135-145 [facility] Comment on above: Performed By: #### 1 0DRUG #### [facility] (DEFAULT) [address] [place] [address] 67324 Urea nitrogen [Mass/Vol] 20 mg/dL Normal 7-25 [facility] Comment on above: Performed By: #### 1 0DRUG #### [facility] (DEFAULT) [address] [place] [address] 74788 Urea nitrogen/Creatinine [Mass ratio] 39 mg/mg Normal [facility] Comment on above: Performed By: #### 1 0DRUG #### [facility] (DEFAULT) [address] [place] [address] 76894 Anion gap [Moles/Vol] 9 mmol/L 7 - 17 mmol/L [facility] Chloride [Moles/Vol] 100 mmol/L 98 - 10 8 mmol/L [facility] CO2 [Moles/Vol] 26 mmol/L 21 - 31 mmol/L [facility] Creatinine [Mass/Vol] 0.51 mg/dL 0.50 - 1.20 mg/dL [facility] eGFR, CKD-EPI, [facility] Glucose [Mass/Vol] 107 mg/dL High 70 - 99 mg/dL [facility] Interpretation and review of laboratory results Abnormal [facility] Osmolality Calc [Osmolality] 280 [facility] Potassium [Moles/Vol] 4.4 mmol/L 3.5 - 5.0 mmol/L [facility] Sodium [Moles/Vol] 131 mmol/L Low 135 - 145 mmol/L [facility] Urea nitrogen [Mass/Vol] 20 mg/dL 7 - 25 mg/dL [facility] Urea nitrogen/Creatinine [Mass ratio] 39 mg/mg [facility] MAGNESIUMon 12-14-2023 Magnesium [Mass/Vol] 1.8 mg/dL Normal 1.6-2.6 [facility] Comment on above: Performed By: #### 1 0DRUG #### [facility] (DEFAULT) [address] [place] [address] Interpretation and review of laboratory results Normal [facility] Magnesium [Mass/Vol] 1.8 mg/dL 1.6 - 2 .6 mg/dL [facility] No Panel Informationon 12-14 [facility] CBC,PLATELETSon 12-13-2023 Hematocrit (Bld) [Volume fraction] 34.0 % Low 34.9-44.3 [facility] Comment on above: Performed By: #### B LDCULT #### [facility] (DEFAULT) [address] [place] [address]646 Hemoglobin (Bld) [Mass/Vol] 11.0 g/dL Low 11.4-15.2 [facility] Comment on above: Performed By: #### B LDCULT #### [facility] (DEFAULT) [address] [place] [address] 61984 MCV (RBC) [Entitic vol] 95.2 fL Normal 79.6-97.7 O [facility] Comment on above: Performed By: #### B LDCULT #### [facility] (DEFAULT) [address] [place] [address] 47941 Mean Cell Hgb 30.8 pg Normal 25.9-33.9 [facility] Comment on above: Performed By: #### B LDCULT #### [facility] (DEFAULT) [address] [place] [address] 89066 Mean Cell Hgb Conc 32.4 g/dL Normal 31.4-35.9 [facility] Comment on above: Performed By: #### B LDCULT #### [facility] (DEFAULT) [address] [place] [address]102 Platelet mean volume (Bld) [Entitic vol] 10.2 fL Normal 8.5-12.2 [facility] Comment on above: Performed By: #### B LDCULT #### [facility] (DEFAULT) [address] [place] [address]249 Platelets (Bld) [#/Vol] 288 10*3/uL Normal 150-393 [facility] Comment on above: Performed By: #### B LDCULT #### [facility] (DEFAULT) [address] [place] [address] 83022 RBC (Bld) [#/Vol] 3.57 10*6/uL Low 3.91-5.04 [facility] Comment on above: Performed By: #### B LDCULT #### [facility] (DEFAULT) [address] [place] [address] 84542 RBC Distribution 12.9 % Normal 10.8-14.9 [facility] Comment on above: Performed By: #### B LDCULT #### [facility] (DEFAULT) [address] [place] [address] 75965 WBC (Bld) [#/Vol] 11.06 10*3/uL Normal 3.99-11.19 [facility] Comment on above: Performed By: #### B LDCULT #### [facility] (DEFAULT) [address] [place] [address] 13576 Erythrocyte distribution width (RBC) [Ratio] 12.9 % 10.8 - 14.9 % [facility] Hematocrit (Bld) [Volume fraction] 34.0 % Low 34.9 - 44.3 % [facility] Hemoglobin (Bld) [Mass/Vol] 11.0 g/dL Low 11.4 - 15.2 g/dL [facility] Interpretation and review of laboratory results Abnormal [facility] MCH (RBC) [Entitic mass] 30.8 pg 25.9 - 33.9 pg [facility] MCHC (RBC) [Mass/Vol] 32.4 g/dL 31.4 - 35.9 g/dL [facility] MCV (RBC) [Entitic vol] 95.2 fL 79.6 - 97.7 fL [facility] Platelet mean volume (Bld) [Entitic vol] 10.2 fL 8.5 - 12.2 fL [facility] Platelets (Bld) [#/Vol] 288 10*3/uL 150 - 393 K/uL [facility] RBC (Bld) [#/Vol] 3.57 10*6/uL Low [facility] WBC (Bld) [#/Vol] 11.06 10*3/uL 3.99 - 11 .19 K/uL [facility] CHEM 7 (LYTES,BUN,CREA,GLUC) on 12-13-2023 Anion gap [Moles/Vol] 13 mmol/L Normal 7-17 [facility] Comment on above: Performed By: #### JEAN MARIE LA #### [facility] (DEFAULT) [address] [address] Chloride [Moles/Vol] 104 mmol/L Normal 98-108 [facility] Comment on above: Performed By: ###JEAN MARIE BROOKS #### [facility] (DEFAULT) [address] [place] [address] 17783 CO2 [Moles/Vol] 24 mmol/L Normal 21-31 [facility] Comment on above: Performed By: #### JEAN MARIE LA #### [facility] (DEFAULT) [address] [place] [address] 12686 Creatinine [Mass/Vol] 0.51 mg/dL Normal 0.50-1.20 [facility] Comment on above: Performed By: #### Iraida ALLEN CHM7 #### [facility] (DEFAULT) [address] [place] [address] 66704 eGFR, CKD-EPI, Female > Normal >=60 [facility] Comment on above: Result Comment: Repo rted eGFR is based on the CKD-EPI 2020 equation using creatinine, age, and sex. Performed By: #### LUCIANO LA7 #### [facility] (DEFAULT) [address] [place] [address] 17535 Glucose [Mass/Vol] 152 mg/dL High 70-99 [facility] Comment on above: Performed By: #### LUCIANO LA7 #### [facility] (DEFAULT) [address] [place] [address] 13799 Osmolality [Osmolality] 295 mosm/kg Normal 278-305 [facility] Comment on above: Performed By: #### LUCIANO LA7 #### [facility] (DEFAULT) [address] [place] [address]59 Potassium [Moles/Vol] 4.5 mmol/L Normal 3.5-5.0 [facility] Comment on above: Performed By: #### Iraida ALLEN CHM7 #### [facility] (DEFAULT) [address] [place] [address] 40114 Sodium [Moles/Vol] 136 mmol/L Normal 135-145 [facility] Comment on above: Performed By: #### Iraida ALLEN CHM7 #### [facility] (DEFAULT) [address] [place] [address] 57186 Urea nitrogen [Mass/Vol] 27 mg/dL High 7-25 [facility] Comment on above: Performed By: #### Iraida ALLEN CHM7 #### [facility] (DEFAULT) [address] [place] [address] Urea nitrogen/Creatinine [Mass ratio] 53 mg/mg Normal [facility] Comment on above: Performed By: #### M [facility] #### [facility] (DEFAULT) [address] [place] [address] Anion gap [Moles/Vol] 13 mmol/L 7 - 17 mmol/L [facility] Chloride [Moles/Vol] 104 mmol/L 98 - 10 8 mmol/L [facility] CO2 [Moles/Vol] 24 mmol/L 21 - 31 mmol/L [facility] Creatinine [Mass/Vol] 0.51 mg/dL 0.50 - 1.20 mg/dL [facility] eGFR, CKD-EPI, Female - PINF [facility] Glucose [Mass/Vol] 152 mg/dL High 70 - 99 mg/dL [facility] Interpretation and review of laboratory results Abnormal [facility] Osmolality Calc [Osmolality] 295 [facility] Potassium [Moles/Vol] 4.5 mmol/L 3.5 - 5.0 mmol/L [facility] Sodium [Moles/Vol] 136 mmol/L 135 - 145 mmol/L [facility] Urea nitrogen [Mass/Vol] 27 mg/dL High 7 - 25 mg/dL [facility] Urea nitrogen/Creatinine [Mass ratio] 53 mg/mg [facility] CT ABDOMEN/PELVIS WITH CONTR Jose Carlos 12-13-2023 CT ABDOMEN/PELVIS WITH CONTRAST EXAM: CT ABDOMEN/PELVIS WITH CONTRAST, 12/13/2023 12:46 PM COMPARISON: Abdominal radiograph dated December 06, 2023 CLINICAL INDICATIONS: Anatomy screening for PEG placement per Gen Surg request; TECHNIQUE: CT scanning was performed of the abdomen and pelvis following the administration of intravenous contrast. PROTOCOL: Standard. CONTRAST: iohexol (OMNIPAQUE) 350 MG/ML injection 1-171 mL; Route of Administration: Intravenous; Dose: 110 mL. FINDINGS: Lung Bases: Trace bilateral pleural effusions. Bibasilar atelectasis. Multivessel coronary artery disease. ABDOMEN Liver: Liver is normal in size and CT density. No focal lesions. Biliary/Gallbladder: The gallbladder is not well seen and may be absent. The biliary tree is nondilated. Spleen: Spleen is normal in size and CT density. Pancreas: Pancreas is normal. There is no evidence of pancreatic mass or peripancreatic fluid. Adrenals: Adrenal glands are unremarkable. Kidneys: Kidneys are normal in size. There are no stones or hydronephrosis. Retroperitoneal/Vasc ulature: No retroperitoneal adenopathy is identified. Scattered atherosclerotic calcifications in the aorta and its main branches. Gastrointestinal/Mes entery: There are multiple stool filled loops of transverse colon anterior to the stomach. There is a more open space between the inferior aspect of the liver and a few of the mid transverse colon loops. Enteric tube tip terminates in the proximal duodenum. Small hiatal hernia. PELVIS Bladder: The bladder is normal. Genital: The uterus, ovaries and adnexal structures are unremarkable. Other: Small fat-containing umbilical hernia. Bony Structures: Multilevel degenerative changes in the spine. There are IMPRESSION: 1. Few dilated loops of transverse colon between portions of the stomach and the abdominal wall. 2. No acute findings in the abdomen and pelvis. Normal [facility] CT Abdomen and Pelvis W cont rast Damari 12-13-2023 [facility]ative[facility] MAGNESIUMon 12-13-2023 Magnesium [Mass/Vol] 1.9 mg/dL Normal 1.6-2.6 [facility] Comment on above: Performed By: #### M ALEJANDRO [facility] #### [facility] (DEFAULT) [address] [place] [address] Interpretation and review of laboratory results Normal [facility] Magnesium [Mass/Vol] 1.9 mg/dL 1.6 - 2 .6 mg/dL [facility] No Panel Informationon 12-13 [facility] CBC,PLATELETSon 12-12-2023 Hematocrit (Bld) [Volume fraction] 30.2 % Low 34.9-44.3 [facility] Comment on above: Performed By: #### H EMOGC #### [facility] (DEFAULT) [address] [place] [address] 36228 Hemoglobin (Bld) [Mass/Vol] 9.6 g/dL Low 11.4-15.2 [facility] Comment on above: Performed By: #### H EMOGC #### [facility] (DEFAULT) [address] [place] [address] 17237 MCV (RBC) [Entitic vol] 97.1 fL Normal 79.6-97.7 O [facility] Comment on above: Performed By: #### H EMOGC #### [facility] (DEFAULT) [address] [address] Mean Cell Hgb 30.9 pg Normal 25.9-33.9 [facility] Comment on above: Performed By: #### H EMOGC #### [facility] (DEFAULT) [address] [address] Mean Cell Hgb Conc 31.8 g/dL Normal 31.4-35.9 [facility] Comment on above: Performed By: #### H EMOGC #### [facility] (DEFAULT) [address] [place] [address] 44956 Platelet mean volume (Bld) [Entitic vol] 10.7 fL Normal 8.5-12.2 [facility] Comment on above: Performed By: #### H EMOGC #### [facility] (DEFAULT) [address] [place] [address] 11821 Platelets (Bld) [#/Vol] 454 10*3/uL High 150-393 [facility] Comment on above: Performed By: #### H EMOGC #### [facility] (DEFAULT) [address] [place] [address] 12578 RBC (Bld) [#/Vol] 3.11 10*6/uL Low 3.91-5.04 [facility] Comment on above: Performed By: #### H EMOGC #### [facility] (DEFAULT) [address] [place] [address] RBC Distribution 13.1 % Normal 10.8-14.9 [facility] Comment on above: Performed By: #### [facility] #### [facility] (DEFAULT) [address] [place] [address] WBC (Bld) [#/Vol] 14.90 10*3/uL High 3.99-11.19 [facility] Comment on above: Performed By: #### [facility] #### [facility] (DEFAULT) [address] [place] [address] Erythrocyte distribution width (RBC) [Ratio] 13.1 % 10.8 - 14.9 % [facility] Hematocrit (Bld) [Volume fraction] 30.2 % Low 34.9 - 44.3 % [facility] Hemoglobin (Bld) [Mass/Vol] 9.6 g/dL Low 11.4 - 15.2 g/dL [facility] Interpretation and review of laboratory results Abnormal [facility] MCH (RBC) [Entitic mass] 30.9 pg 25.9 - 33.9 pg [facility] MCHC (RBC) [Mass/Vol] 31.8 g/dL 31.4 - 35.9 g/dL [facility] MCV (RBC) [Entitic vol] 97.1 fL 79.6 - 97.7 fL [facility] Platelet mean volume (Bld) [Entitic vol] 10.7 fL 8.5 - 12.2 fL [facility] Platelets (Bld) [#/Vol] 454 10*3/uL High 150 - 393 K/uL [facility] RBC (Bld) [#/Vol] 3.11 10*6/uL Low [facility] WBC (Bld) [#/Vol] 14.90 10*3/uL High 3.99 - 11 .19 K/uL [facility] CHEM 7 (LYTES,BUN,CREA,GLUC) on 12-12-2023 Anion gap [Moles/Vol] 10 mmol/L Normal 7-17 [facility] Comment on above: Performed By: #### H EMO #### [facility] (DEFAULT) [address] [address] Chloride [Moles/Vol] 105 mmol/L Normal 98-108 [facility] Comment on above: Performed By: #### H EMO #### [facility] (DEFAULT) [address] [place] [address] 26852 CO2 [Moles/Vol] 27 mmol/L Normal 21-31 [facility] Comment on above: Performed By: #### [facility] #### [facility] (DEFAULT) [address] [address] Creatinine [Mass/Vol] 0.66 mg/dL Normal 0.50-1.20 [facility] Comment on above: Performed By: #### [facility] #### [facility] (DEFAULT) [address] [address] GFR/1.73 sq M.predicted among non-blacks MDRD (S/P/Bld) [Vol rate/Area] 90 mL/min/{1.73_m2} Normal >=60 [facility] Comment on above: Result Comment: Repo rted eGFR is based on the CKD-EPI 2020 equation using creatinine, age, and sex. Performed By: #### H EMO #### [facility] (DEFAULT[facility] [address] [place] [address] Glucose [Mass/Vol] 156 mg/dL High 70-99 [facility] Comment on above: Performed By: #### H EMOGC #### [facility] (DEFAULT) [address] [address] Osmolality [Osmolality] 299 mosm/kg Normal 278-305 [facility] Comment on above: Performed By: #### H EMO #### [facility] (DEFAULT) [address] [address] Potassium [Moles/Vol] 4.7 mmol/L Normal 3.5-5.0 [facility] Comment on above: Performed By: #### [facility] #### [facility] (DEFAULT) [address] [place] [address] Sodium [Moles/Vol] 137 mmol/L Normal 135-145 [facility] Comment on above: Performed By: #### [facility] #### [facility] (DEFAULT) [address] [place] [address] Urea nitrogen [Mass/Vol] 33 mg/dL High 7-25 [facility] Comment on above: Performed By: #### [facility] #### [facility] (DEFAULT) [address] [place] [address] Urea nitrogen/Creatinine [Mass ratio] 50 mg/mg Normal [facility] Comment on above: Performed By: #### [facility] #### [facility] (DEFAULT) [address] [place] [address] Anion gap [Moles/Vol] 10 mmol/L 7 - 17 mmol/L [facility] Chloride [Moles/Vol] 105 mmol/L 98 - 10 8 mmol/L [facility] CO2 [Moles/Vol] 27 mmol/L 21 - 31 mmol/L [facility] Creatinine [Mass/Vol] 0.66 mg/dL 0.50 - 1.20 mg/dL [facility] eGFR, CKD-EPI, Female 90 - PINF [facility] Glucose [Mass/Vol] 156 mg/dL High 70 - 99 mg/dL [facility] Interpretation and review of laboratory results Abnormal [facility] Osmolality Calc [Osmolality] 299 [facility] Potassium [Moles/Vol] 4.7 mmol/L 3.5 - 5.0 mmol/L [facility] Sodium [Moles/Vol] 137 mmol/L 135 - 145 mmol/L [facility] Urea nitrogen [Mass/Vol] 33 mg/dL High 7 - 25 mg/dL [facility] Urea nitrogen/Creatinine [Mass ratio] 50 mg/mg [facility] INTERVENTIONAL UPPER ENDOSCO PYon 12-12-2023 Body surface area Derived from formula 1.92 m2 [facility] LAB, [facility] Radiology Study observation (narrative) [facility] MAGNESIUMon 12-12-2023 Magnesium [Mass/Vol] 2.1 mg/dL Normal 1.6-2.6 [facility] Comment on above: Performed By: #### [facility] #### [facility] (DEFAULT) [address] [place] [address] Interpretation and review of laboratory results Normal [facility] Magnesium [Mass/Vol] 2.1 mg/dL 1.6 - 2 .6 mg/dL [facility] No Panel Informationon 12-12 [facility] XR ABDOMEN 1 VIEW PORTABLEon 12-12-2023 XR ABDOMEN 1 VIEW PORTABLE EXAM: XR ABDOMEN 1 VIEW PORTABLE, 12/12/2023 17:05 PM COMPARISON: Abdominal radiograph dated December 06, 2023. CLINICAL INDICATIONS: NG placement FINDINGS: Limited field of view radiograph of the upper abdomen was obtained to evaluate enteric tube positioning. Elevation of the right hemidiaphragm when compared to the contralateral. The feeding tube with its tip in the expected location of the pyloric region. Prominent gaseous distention of the stomach and partially visualized colon. No gross free air. Visualized osseous structures demonstrate multilevel degenerative changes. IMPRESSION: Feeding tube with tip in the expected location of the pyloric region. If postpyloric position is desired further advancement is recommended. Normal [facility] XR Abdomen Single viewon RADIOLOGY RADIOLOGY [facility] Radiology Study observation (narrative) [facility] Bacteria identified Cx Nom ( Bld)on 12-11-2023 Bacteria identified Cx Nom (Unsp spec) NO GROWTH DAY 5 OF 5 [facility] Bacteria identified Cx Nom (Unsp spec) NO GROWTH DAY 5 OF 5 [facility] Bacteria identified Cx Nom (Unsp spec) NO GROWTH DAY 5 OF 5 [facility] CBC,PLATELETSon 12-11-2023 Hematocrit (Bld) [Volume fraction] 32.0 % Low 34.9-44.3 [facility] Comment on above: Performed By: #### Iraida ALLEN CHM7 #### [facility] (DEFAULT) [address] [place] [address] Hemoglobin (Bld) [Mass/Vol] 10.2 g/dL Low 11.4-15.2 [facility] Comment on above: Performed By: #### Iraida ALLEN CHM7 #### [facility] (DEFAULT) [address] [place] [address] MCV (RBC) [Entitic vol] 96.7 fL Normal 79.6-97.7 [facility] Comment on above: Performed By: #### Iraida ALLEN CHM7 #### [facility] (DEFAULT) [address] [place] [address] Mean Cell Hgb 30.8 pg Normal 25.9-33.9 [facility] Comment on above: Performed By: #### Iraida ALLEN CHM7 #### [facility] (DEFAULT) [address] [place] [address] Mean Cell Hgb Conc 31.9 g/dL Normal 31.4-35.9 [facility] Comment on above: Performed By: #### Iraida ALLEN CHM7 #### [facility] (DEFAULT) [address] [place] [address] Platelet mean volume (Bld) [Entitic vol] 10.4 fL Normal 8.5-12.2 [facility] Comment on above: Performed By: #### Iraida ALLEN CHM7 #### [facility] (DEFAULT) [address] [place] [address] Platelets (Bld) [#/Vol] 470 10*3/uL High 150-393 [facility] Comment on above: Performed By: #### Iraida ALLEN CHM7 #### [facility] (DEFAULT) [address] [place] [address] RBC (Bld) [#/Vol] 3.31 10*6/uL Low 3.91-5.04 [facility] Comment on above: Performed By: #### LUCIANO LA7 #### [facility] (DEFAULT) [address] [place] [address] RBC Distribution 13.0 % Normal 10.8-14.9 [facility] Comment on above: Performed By: #### LUCIANO LA7 #### [facility] (DEFAULT) [address] [place] [address] WBC (Bld) [#/Vol] 14.51 10*3/uL High 3.99-11.19 [facility] Comment on above: Performed By: #### JEAN MARIE LA #### [facility] (DEFAULT) [address] [place] [address] Erythrocyte distribution width (RBC) [Ratio] 13.0 % 10.8 - 14.9 % [facility] Hematocrit (Bld) [Volume fraction] 32.0 % Low 34.9 - 44.3 % [facility] Hemoglobin (Bld) [Mass/Vol] 10.2 g/dL Low 11.4 - 15.2 g/dL [facility] Interpretation and review of laboratory results Abnormal [facility] MCH (RBC) [Entitic mass] 30.8 pg 25.9 - 33.9 pg [facility] MCHC (RBC) [Mass/Vol] 31.9 g/dL 31.4 - 35.9 g/dL [facility] MCV (RBC) [Entitic vol] 96.7 fL 79.6 - 97.7 fL [facility] Platelet mean volume (Bld) [Entitic vol] 10.4 fL 8.5 - 12.2 fL [facility] Platelets (Bld) [#/Vol] 470 10*3/uL High 150 - 393 K/uL [facility] RBC (Bld) [#/Vol] 3.31 10*6/uL Low [facility] WBC (Bld) [#/Vol] 14.51 10*3/uL High 3.99 - 11 .19 K/uL [facility] CHEM 7 (LYTES,BUN,CREA,GLUC) on 12-11-2023 Anion gap [Moles/Vol] 11 mmol/L Normal 7-17 [facility] Comment on above: Performed By: #### [facility] #### [facility] (DEFAULT) [address] [address] Chloride [Moles/Vol] 103 mmol/L Normal 98-108 [facility] Comment on above: Performed By: #### [facility] #### [facility] (DEFAULT) [address] [address] CO2 [Moles/Vol] 29 mmol/L Normal 21-31 [facility] Comment on above: Performed By: #### [facility] #### [facility] (DEFAULT) [address] [address] Creatinine [Mass/Vol] 0.66 mg/dL Normal 0.50-1.20 [facility] Comment on above: Performed By: #### [facility] #### [facility] (DEFAULT) [address] [address] GFR/1.73 sq M.predicted among non-blacks MDRD (S/P/Bld) [Vol rate/Area] 90 mL/min/{1.73_m2} Normal >=60 [facility] Comment on above: Result Comment: Repo rted eGFR is based on the CKD-EPI 2020 equation using creatinine, age, and sex. Performed By: #### [facility] #### [facility] (DEFAULT) [address] [address] Glucose [Mass/Vol] 129 mg/dL High 70-99 [facility] Comment on above: Performed By: #### H EMOGC #### [facility] (DEFAULT) [address] [place] [address] Osmolality [Osmolality] 300 mosm/kg Normal 278-305 [facility] Comment on above: Performed By: #### H EMOGC #### [facility] (DEFAULT) [address] [place] [address] Potassium [Moles/Vol] 5.0 mmol/L Normal 3.5-5.0 [facility] Comment on above: Performed By: #### H EMO #### [facility] (DEFAULT) [address] [place] [address] Sodium [Moles/Vol] 138 mmol/L Normal 135-145 [facility] Comment on above: Performed By: #### H EMO #### [facility] (DEFAULT) [address] [place] [address] Urea nitrogen [Mass/Vol] 34 mg/dL High 7-25 [facility] Comment on above: Performed By: #### H EMO #### [facility] (DEFAULT) [address] [place] [address] Urea nitrogen/Creatinine [Mass ratio] 52 mg/mg Normal [facility] Comment on above: Performed By: #### H EMOGC #### [facility] (DEFAULT) [address] [place] [address] Anion gap [Moles/Vol] 11 mmol/L 7 - 17 mmol/L [facility] Chloride [Moles/Vol] 103 mmol/L 98 - 10 8 mmol/L [facility] CO2 [Moles/Vol] 29 mmol/L 21 - 31 mmol/L [facility] Creatinine [Mass/Vol] 0.66 mg/dL 0.50 - 1.20 mg/dL [facility] eGFR, CKD-EPI, Female 90 - PINF [facility] Glucose [Mass/Vol] 129 mg/dL High 70 - 99 mg/dL [facility] Interpretation and review of laboratory results Abnormal [facility] Osmolality Calc [Osmolality] 300 [facility] Potassium [Moles/Vol] 5.0 mmol/L 3.5 - 5.0 mmol/L [facility] Sodium [Moles/Vol] 138 mmol/L 135 - 145 mmol/L [facility] Urea nitrogen [Mass/Vol] 34 mg/dL High 7 - 25 mg/dL [facility] Urea nitrogen/Creatinine [Mass ratio] 52 mg/mg [facility] GLUCOSE POCon 12-11-2023 Glucose [Mass/Vol] 128 mg/dL High 70 - 99 mg/dL [facility] Interpretation and review of laboratory results Abnormal [facility] POC Sample Type CAPBL [facility] MAGNESIUMon 12-11-2023 Magnesium [Mass/Vol] 2.2 mg/dL Normal 1.6-2.6 [facility] Comment on above: Performed By: #### [facility] #### [facility] (DEFAULT) [address] [place] [address] Interpretation and review of laboratory results Normal [facility] Magnesium [Mass/Vol] 2.2 mg/dL 1.6 - 2 .6 mg/dL [facility] No Panel Informationon 12-11 [facility] PT,INR,PTTon 12-11-2023 aPTT Coag (Bld) [Time] 27.0 s Normal 24.0-34.3 [facility] Comment on above: Performed By: #### JEAN MARIE LA #### [facility] (DEFAULT) [address] [place] [address] INR Coag (PPP) [Relative time] 1.1 {INR} Normal 0.9-1.1 [facility] Comment on above: Performed By: #### JEAN MARIE LA #### [facility] (DEFAULT) [address] [place] [address] PT Coag (PPP) [Time] 13.9 s Normal 11.9-14.2 [facility] Comment on above: Performed By: #### M ALEJANDRO CHM7 #### [facility] (DEFAULT) [address] [place] [address] aPTT Coag (PPP) [Time] 27.0 s [facility] INR Coag (Bld) [Relative time] 1.1 {INR} 0.9 - 1.1 [facility] Interpretation and review of laboratory results Normal [facility] PT Coag (PPP) [Time] 13.9 s [facility] Bacteria identified Cx Nom ( Bld)Ordered By: Christos Acosta on 12-10-2023 Bacteria identified Cx Nom (Unsp spec) Growth [facility] Bacteria identified Cx Nom (Unsp spec) STAPHYLOCOCCUS EPIDERMIDIS Abnormal [facility] Interpretation and review of laboratory results Abnormal [facility] CBC,PLATELETSon 12-10-2023 Hematocrit (Bld) [Volume fraction] 33.4 % Low 34.9-44.3 [facility] Comment on above: Performed By: #### [facility] #### [facility] (DEFAULT) [address] [place] [address] Hemoglobin (Bld) [Mass/Vol] 10.5 g/dL Low 11.4-15.2 [facility] Comment on above: Performed By: #### H EMO #### [facility] (DEFAULT) [address] [place] [address] MCV (RBC) [Entitic vol] 96.0 fL Normal 79.6-97.7 O [facility] Comment on above: Performed By: #### H EMOGC #### [facility] (DEFAULT) [address] [place] [address] Mean Cell Hgb 30.2 pg Normal 25.9-33.9 [facility] Comment on above: Performed By: #### H EMOGC #### [facility] (DEFAULT) [address] [address] Mean Cell Hgb Conc 31.4 g/dL Normal 31.4-35.9 [facility] Comment on above: Performed By: #### H EMOGC #### [facility] (DEFAULT) [address] [address] Platelet mean volume (Bld) [Entitic vol] 10.4 fL Normal 8.5-12.2 [facility] Comment on above: Performed By: #### H EMOGC #### [facility] (DEFAULT) [address] [address] Platelets (Bld) [#/Vol] 417 10*3/uL High 150-393 [facility] Comment on above: Performed By: #### H EMOGC #### [facility] (DEFAULT) [address] [address] RBC (Bld) [#/Vol] 3.48 10*6/uL Low 3.91-5.04 [facility] Comment on above: Performed By: #### H EMOGC #### [facility] (DEFAULT) [address] [address] RBC Distribution 12.8 % Normal 10.8-14.9 [facility] Comment on above: Performed By: #### H EMOGC #### [facility] (DEFAULT) [address] [address] WBC (Bld) [#/Vol] 14.46 10*3/uL High 3.99-11.19 [facility] Comment on above: Performed By: #### H EMOGC #### [facility] (DEFAULT) [address] [address] Erythrocyte distribution width (RBC) [Ratio] 12.8 % 10.8 - 14.9 % [facility] Hematocrit (Bld) [Volume fraction] 33.4 % Low 34.9 - 44.3 % [facility] Hemoglobin (Bld) [Mass/Vol] 10.5 g/dL Low 11.4 - 15.2 g/dL [facility] Interpretation and review of laboratory results Abnormal [facility] MCH (RBC) [Entitic mass] 30.2 pg 25.9 - 33.9 pg [facility] MCHC (RBC) [Mass/Vol] 31.4 g/dL 31.4 - 35.9 g/dL [facility] MCV (RBC) [Entitic vol] 96.0 fL 79.6 - 97.7 fL [facility] Platelet mean volume (Bld) [Entitic vol] 10.4 fL 8.5 - 12.2 fL [facility] Platelets (Bld) [#/Vol] 417 10*3/uL High 150 - 393 K/uL [facility] RBC (Bld) [#/Vol] 3.48 10*6/uL Low [facility] WBC (Bld) [#/Vol] 14.46 10*3/uL High 3.99 - 11 .19 K/uL [facility] CHEM 7 (LYTES,BUN,CREA,GLUC) on 12-10-2023 Anion gap [Moles/Vol] 12 mmol/L Normal 7-17 [facility] Comment on above: Performed By: #### Iraida ALLEN CHM7 #### [facility] (DEFAULT) [address] [place] [address] Chloride [Moles/Vol] 103 mmol/L Normal 98-108 [facility] Comment on above: Performed By: #### LUCIANO LA7 #### [facility] (DEFAULT) [address] [address] CO2 [Moles/Vol] 27 mmol/L Normal 21-31 [facility] Comment on above: Performed By: #### Iraida ALLEN CHM7 #### [facility] (DEFAULT) [address] [place] [address] Creatinine [Mass/Vol] 0.62 mg/dL Normal 0.50-1.20 [facility] Comment on above: Performed By: #### Iraida ALLEN CHM7 #### [facility] (DEFAULT) [address] [place] [address] eGFR, CKD-EPI, Female > Normal >=60 [facility] Comment on above: Result Comment: Repo rted eGFR is based on the CKD-EPI 2020 equation using creatinine, age, and sex. Performed By: #### Iraida ALLEN CHM7 #### [facility] (DEFAULT) [address] [place] [address] Glucose [Mass/Vol] 173 mg/dL High 70-99 [facility] Comment on above: Performed By: #### Iraida ALLEN CHM7 #### [facility] (DEFAULT) [address] [place] [address] Osmolality [Osmolality] 302 mosm/kg Normal 278-305 [facility] Comment on above: Performed By: #### Iraida ALLEN CHM7 #### [facility] (DEFAULT) [address] [place] [address] Potassium [Moles/Vol] 5.2 mmol/L High 3.5-5.0 [facility] Comment on above: Performed By: #### Iraida ALLEN CHM7 #### [facility] (DEFAULT) [address] [place] [address] Sodium [Moles/Vol] 137 mmol/L Normal 135-145 [facility] Comment on above: Performed By: #### Iraida ALLEN CHM7 #### [facility] (DEFAULT) [address] [place] [address] Urea nitrogen [Mass/Vol] 34 mg/dL High 7-25 [facility] Comment on above: Performed By: #### Iraida ALLEN CHM7 #### [facility] (DEFAULT) [address] [place] [address] Urea nitrogen/Creatinine [Mass ratio] 55 mg/mg Normal [facility] Comment on above: Performed By: #### Iraida ALLEN CHM7 #### [facility] (DEFAULT) [address] [place] [address] Anion gap [Moles/Vol] 12 mmol/L 7 - 17 mmol/L [facility] Chloride [Moles/Vol] 103 mmol/L 98 - 10 8 mmol/L [facility] CO2 [Moles/Vol] 27 mmol/L 21 - 31 mmol/L [facility] Creatinine [Mass/Vol] 0.62 mg/dL 0.50 - 1.20 mg/dL [facility] eGFR, CKD-EPI, Female - PINF [facility] Glucose [Mass/Vol] 173 mg/dL High 70 - 99 mg/dL [facility] Interpretation and review of laboratory results Abnormal [facility] Osmolality Calc [Osmolality] 302 [facility] Potassium [Moles/Vol] 5.2 mmol/L High 3.5 - 5.0 mmol/L [facility] Sodium [Moles/Vol] 137 mmol/L 135 - 145 mmol/L [facility] Urea nitrogen [Mass/Vol] 34 mg/dL High 7 - 25 mg/dL [facility] Urea nitrogen/Creatinine [Mass ratio] 55 mg/mg [facility] MAGNESIUMon 12-10-2023 Magnesium [Mass/Vol] 2.2 mg/dL Normal 1.6-2.6 [facility] Comment on above: Performed By: #### LUCIANO LA7 #### [facility] (DEFAULT) [address] [place] [address] Interpretation and review of laboratory results Normal [facility] Magnesium [Mass/Vol] 2.2 mg/dL 1.6 - 2 .6 mg/dL [facility] No Panel Informationon 12-10 [facility] Bacteria identified Cx Nom ( Bld)on 12-09-2023 Bacteria identified Cx Nom (Unsp spec) NO [facility] DAY [facility]on 12-09-2023 Hematocrit (Bld) [Volume fraction] 31.0 % Low 34.9-44.3 [facility] Comment on above: Performed By: #### Iraida ALLEN CHM7 #### [facility] (DEFAULT) [address] [place] [address] Hemoglobin (Bld) [Mass/Vol] 9.9 g/dL Low 11.4-15.2 [facility] Comment on above: Performed By: #### LUCIANO LA7 #### [facility] (DEFAULT) [address] [place] [address] MCV (RBC) [Entitic vol] 95.7 fL Normal 79.6-97.7 O [facility] Comment on above: Performed By: #### Iraida ALLEN CHM7 #### [facility] (DEFAULT) [address] [place] [address] Mean Cell Hgb 30.6 pg Normal 25.9-33.9 [facility] Comment on above: Performed By: #### Iraida ALLEN CHM7 #### [facility] (DEFAULT) [address] [place] [address] Mean Cell Hgb Conc 31.9 g/dL Normal 31.4-35.9 [facility] Comment on above: Performed By: #### Iraida ALLEN CHM7 #### [facility] (DEFAULT) [address] [place] [address] Platelet mean volume (Bld) [Entitic vol] 10.6 fL Normal 8.5-12.2 [facility] Comment on above: Performed By: #### Iraida ALLEN CHM7 #### [facility] (DEFAULT) [address] [place] [address] Platelets (Bld) [#/Vol] 377 10*3/uL Normal 150-393 [facility] Comment on above: Performed By: #### Iraida ALLEN CHM7 #### [facility] (DEFAULT) [address] [place] [address] RBC (Bld) [#/Vol] 3.24 10*6/uL Low 3.91-5.04 [facility] Comment on above: Performed By: #### Iraida ALLEN CHM7 #### [facility] (DEFAULT) [address] [place] [address] RBC Distribution 13.0 % Normal 10.8-14.9 [facility] Comment on above: Performed By: #### LUCIANO LA7 #### [facility] (DEFAULT) [address] [place] [address] WBC (Bld) [#/Vol] 13.04 10*3/uL High 3.99-11.19 [facility] Comment on above: Performed By: #### Iraida ALLEN CHM7 #### [facility] (DEFAULT) [address] [place] [address] Erythrocyte distribution width (RBC) [Ratio] 13.0 % 10.8 - 14.9 % [facility] Hematocrit (Bld) [Volume fraction] 31.0 % Low 34.9 - 44.3 % [facility] Hemoglobin (Bld) [Mass/Vol] 9.9 g/dL Low 11.4 - 15.2 g/dL [facility] Interpretation and review of laboratory results Abnormal [facility] MCH (RBC) [Entitic mass] 30.6 pg 25.9 - 33.9 pg [facility] MCHC (RBC) [Mass/Vol] 31.9 g/dL 31.4 - 35.9 g/dL [facility] MCV (RBC) [Entitic vol] 95.7 fL 79.6 - 97.7 fL [facility] Platelet mean volume (Bld) [Entitic vol] 10.6 fL 8.5 - 12.2 fL [facility] Platelets (Bld) [#/Vol] 377 10*3/uL 150 - 393 K/uL [facility] RBC (Bld) [#/Vol] 3.24 10*6/uL Low [facility] WBC (Bld) [#/Vol] 13.04 10*3/uL High 3.99 - 11 .19 K/uL [facility] CHEM 7 (LYTES,BUN,CREA,GLUC) on 12-09-2023 Anion gap [Moles/Vol] 12 mmol/L Normal 7-17 [facility] Comment on above: Performed By: #### H EMO #### [facility] (DEFAULT) [address] [place] [address] Chloride [Moles/Vol] 103 mmol/L Normal 98-108 [facility] Comment on above: Performed By: #### H EMOGC #### [facility] (DEFAULT) [address] [place] [address] CO2 [Moles/Vol] 28 mmol/L Normal 21-31 [facility] Comment on above: Performed By: #### H EMO #### [facility] (DEFAULT) [address] [place] [address] Creatinine [Mass/Vol] 0.60 mg/dL Normal 0.50-1.20 [facility] Comment on above: Performed By: #### H EMO #### [facility] (DEFAULT) [address] [place] [address] [address] eGFR, CKD-EPI, Female > Normal >=60 [facility] Comment on above: Result Comment: Repo rted eGFR is based on the CKD-EPI 2020 equation using creatinine, age, and sex. Performed By: #### H EMOGC #### [facility] (DEFAULT) [address] [place] [address] 28979 Glucose [Mass/Vol] 145 mg/dL High 70-99 [facility] Comment on above: Performed By: #### H EMOGC #### [facility] (DEFAULT) [address] [place] [address] 74261 Osmolality [Osmolality] 300 mosm/kg Normal 278-305 [facility] Comment on above: Performed By: #### H EMOGC #### [facility] (DEFAULT) [address] [place] [address] 57576 Potassium [Moles/Vol] 4.9 mmol/L Normal 3.5-5.0 [facility] Comment on above: Performed By: #### H EMOGC #### [facility] (DEFAULT) [address] [place] [address] 91962 Sodium [Moles/Vol] 138 mmol/L Normal 135-145 [facility] Comment on above: Performed By: #### H EMOGC #### [facility] (DEFAULT) [address] [place] [address] 28340 Urea nitrogen [Mass/Vol] 30 mg/dL High 7-25 [facility] Comment on above: Performed By: #### H EMOGC #### [facility] (DEFAULT) [address] [place] [address] 12670 Urea nitrogen/Creatinine [Mass ratio] 50 mg/mg Normal [facility] Comment on above: Performed By: #### [facility] #### [facility] (DEFAULT) [address] [place] [address] 83185 Anion gap [Moles/Vol] 12 mmol/L 7 - 17 mmol/L [facility] Chloride [Moles/Vol] 103 mmol/L 98 - 10 8 mmol/L [facility] CO2 [Moles/Vol] 28 mmol/L 21 - 31 mmol/L [facility] Creatinine [Mass/Vol] 0.60 mg/dL 0.50 - 1.20 mg/dL [facility] eGFR, CKD-EPI, Female - PINF [facility] Glucose [Mass/Vol] 145 mg/dL High 70 - 99 mg/dL [facility] Interpretation and review of laboratory results Abnormal [facility] Osmolality Calc [Osmolality] 300 [facility] Potassium [Moles/Vol] 4.9 mmol/L 3.5 - 5.0 mmol/L [facility] Sodium [Moles/Vol] 138 mmol/L 135 - 145 mmol/L [facility] Urea nitrogen [Mass/Vol] 30 mg/dL High 7 - 25 mg/dL [facility] Urea nitrogen/Creatinine [Mass ratio] 50 mg/mg [facility] MAGNESIUMon 12-09-2023 Magnesium [Mass/Vol] 2.2 mg/dL Normal 1.6-2.6 [facility] Comment on above: Performed By: #### H EMO #### [facility] (DEFAULT) [address] [place] [address] 01288 Interpretation and review of laboratory results Normal [facility] Magnesium [Mass/Vol] 2.2 mg/dL 1.6 - 2 .6 mg/dL [facility] No Panel Informationon 12-09 [facility] CBC,PLATELETSon 12-08-2023 Hematocrit (Bld) [Volume fraction] 29.4 % Low 34.9-44.3 [facility] Comment on above: Performed By: #### H EMO #### [facility] (DEFAULT) [address] [place] [address] 26979 Hemoglobin (Bld) [Mass/Vol] 9.3 g/dL Low 11.4-15.2 [facility] Comment on above: Performed By: #### H EMO #### [facility] (DEFAULT) [address] [place] [address] 59006 MCV (RBC) [Entitic vol] 96.7 fL Normal 79.6-97.7 [facility] Comment on above: Performed By: #### H EMOGC #### [facility] (DEFAULT) [address] [place] [address] 45031 Mean Cell Hgb 30.6 pg Normal 25.9-33.9 [facility] Comment on above: Performed By: #### H EMOGC #### [facility] (DEFAULT) [address] [place] [address] 88884 Mean Cell Hgb Conc 31.6 g/dL Normal 31.4-35.9 [facility] Comment on above: Performed By: #### H EMOGC #### [facility] (DEFAULT) [address] [place] [address] 78450 Platelet mean volume (Bld) [Entitic vol] 11.0 fL Normal 8.5-12.2 [facility] Comment on above: Performed By: #### H EMO #### [facility] (DEFAULT) [address] [place] [address] 99141 Platelets (Bld) [#/Vol] 353 10*3/uL Normal 150-393 [facility] Comment on above: Performed By: #### H EMO #### [facility] (DEFAULT) [address] [place] [address] 30634 RBC (Bld) [#/Vol] 3.04 10*6/uL Low 3.91-5.04 [facility] Comment on above: Performed By: #### H EMO #### [facility] (DEFAULT) [address] [place] [address] 22679 RBC Distribution 13.0 % Normal 10.8-14.9 [facility] Comment on above: Performed By: #### H EMO #### [facility] (DEFAULT) [address] [place] [address] 41413 WBC (Bld) [#/Vol] 11.65 10*3/uL High 3.99-11.19 [facility] Comment on above: Performed By: #### H EMOGC #### [facility] (DEFAULT) [address] [place] [address] 04646 Erythrocyte distribution width (RBC) [Ratio] 13.0 % 10.8 - 14.9 % [facility] Hematocrit (Bld) [Volume fraction] 29.4 % Low 34.9 - 44.3 % [facility] Hemoglobin (Bld) [Mass/Vol] 9.3 g/dL Low 11.4 - 15.2 g/dL [facility] Interpretation and review of laboratory results Abnormal [facility] MCH (RBC) [Entitic mass] 30.6 pg 25.9 - 33.9 pg [facility] MCHC (RBC) [Mass/Vol] 31.6 g/dL 31.4 - 35.9 g/dL [facility] MCV (RBC) [Entitic vol] 96.7 fL 79.6 - 97.7 fL [facility] Platelet mean volume (Bld) [Entitic vol] 11.0 fL 8.5 - 12.2 fL [facility] Platelets (Bld) [#/Vol] 353 10*3/uL 150 - 393 K/uL [facility] RBC (Bld) [#/Vol] 3.04 10*6/uL Low [facility] WBC (Bld) [#/Vol] 11.65 10*3/uL High 3.99 - 11 .19 K/uL [facility] CHEM 7 (LYTES,BUN,CREA,GLUC) on 12-08-2023 Anion gap [Moles/Vol] 11 mmol/L Normal 7-17 [facility] Comment on above: Performed By: #### H [facility] #### [facility] (DEFAULT) [address] [address] Chloride [Moles/Vol] 104 mmol/L Normal 98-108 [facility] Comment on above: Performed By: #### H [facility] #### [facility] (DEFAULT) [address] [address] CO2 [Moles/Vol] 28 mmol/L Normal 21-31 [facility] Comment on above: Performed By: #### H [facility] #### [facility] (DEFAULT) [address] [address] Creatinine [Mass/Vol] 0.47 mg/dL Low 0.50-1.20 [facility] Comment on above: Performed By: #### H [facility] #### [facility] (DEFAULT) [address] [address] eGFR, CKD-EPI, Female > Normal >=60 [facility] Comment on above: Result Comment: Repo rted eGFR is based on the CKD-EPI 2020 equation using creatinine, age, and sex. Performed By: #### H EMOGC #### [facility] (DEFAULT) [address] [place] [address] 87646 Glucose [Mass/Vol] 133 mg/dL High 70-99 [facility] Comment on above: Performed By: #### H EMOGC #### [facility] (DEFAULT) [address] [place] [address] 09605 Osmolality [Osmolality] 298 mosm/kg Normal 278-305 [facility] Comment on above: Performed By: #### H EMOGC #### [facility] (DEFAULT) [address] [place] [address] 51800 Potassium [Moles/Vol] 4.7 mmol/L Normal 3.5-5.0 [facility] Comment on above: Performed By: #### H EMOGC #### [facility] (DEFAULT) [address] [place] [address] 76005 Sodium [Moles/Vol] 138 mmol/L Normal 135-145 [facility] Comment on above: Performed By: #### H EMOGC #### [facility] (DEFAULT) [address] [place] [address] 72288 Urea nitrogen [Mass/Vol] 28 mg/dL High 7-25 [facility] Comment on above: Performed By: #### H EMOGC #### [facility] (DEFAULT) [address] [place] [address] 00129 Urea nitrogen/Creatinine [Mass ratio] 60 mg/mg Normal [facility] Comment on above: Performed By: #### H EMOGC #### [facility] (DEFAULT) [address] [place] [address] 34457 Anion gap [Moles/Vol] 11 mmol/L 7 - 17 mmol/L [facility] Chloride [Moles/Vol] 104 mmol/L 98 - 10 8 mmol/L [facility] CO2 [Moles/Vol] 28 mmol/L 21 - 31 mmol/L [facility] Creatinine [Mass/Vol] 0.47 mg/dL Low 0.50 - 1.20 mg/dL [facility] eGFR, CKD-EPI, Female - PINF [facility] Glucose [Mass/Vol] 133 mg/dL High 70 - 99 mg/dL [facility] Interpretation and review of laboratory results Abnormal [facility] Osmolality Calc [Osmolality] 298 [facility] Potassium [Moles/Vol] 4.7 mmol/L 3.5 - 5.0 mmol/L [facility] Sodium [Moles/Vol] 138 mmol/L 135 - 145 mmol/L [facility] Urea nitrogen [Mass/Vol] 28 mg/dL High 7 - 25 mg/dL [facility] Urea nitrogen/Creatinine [Mass ratio] 60 mg/mg [facility] CONTINUOUS CARDIAC MONITORIN G STRIPon 12-08-2023 [facility] ECGOrdered By: Shaq montaño 12-08-2023 [facility] Work Phone: IONIZED CALCIUM, WHOLE BLOOD on 12-08-2023 ICA 4.54 mg/dL Low 4.60-5.30 [facility] Comment on above: Performed By: #### H [facility] #### [facility] (DEFAULT) [address] [place] [address] 15080 IONIZED CALCIUM, WHOLE BLOOD Ordered By: Thanh Cevallos on 12-08-2023 Calcium.ionized (Bld) [Moles/Vol] 4.54 mg/dL Low 4.60 - 5.30 mg/dL [facility] Interpretation and review of laboratory results Abnormal [facility] MAGNESIUMon 12-08-2023 Magnesium [Mass/Vol] 2.0 mg/dL Normal 1.6-2.6 [facility] Comment on above: Performed By: #### H [facility] #### [facility] (DEFAULT) [address] [place] [address] 11464 Magnesium [Mass/Vol] 2.0 mg/dL 1.6 - 2 .6 mg/dL [facility] No Panel Informationon 12-08 Interpretation and review of laboratory results Normal [facility] PHOSPHATE, INORGANICon 12-08 Phosphorous 3.3 mg/dL Normal 2.2-4.6 [facility] Comment on above: Performed By: #### H [facility] #### [facility] (DEFAULT) [address] [place] [address] 34880 Phosphate [Mass/Vol] 3.3 mg/dL 2.2 - 4 .6 mg/dL [facility] BLOOD CULTUREon 12-07-2023 Bacteria identified Cx Nom (Unsp spec) NO GROWTH DAY 5 OF 5 Normal [facility] Comment on above: Order Comment: 2 Bot tles (1 Set - consists of 1 Aerobic bottle and 1 Anaerobic bottle) - 1st Peripheral Draw For syringe method draw: If able to obtain adequate sample (20 ml) inoculate anaerobic bottle first If inadequate sample obtained (less than 20 ml) inoculate aerobic bottle first For vacutainer method draw: Fill aerobic bottle first, then anaerobic Performed By: #### B LDCULT #### [facility] (DEFAULT) [address] [place] [address] 48729 Order Comment: 2 Bot tles (1 Set - consists of 1 Aerobic bottle and 1 Anaerobic bottle) -1st Peripheral DrawFor syringe method draw:If able to obtain adequate sample (20 ml) inoculate anaerobic bottle firstIf inadequate sample obtained (less than 20 ml) inoculate aerobic bottle firstFor vacutainer method draw: Fill aerobic bottle first, then anaerobicResults may be compromised due to volume of BACT\\ALERT bottle exceeding 10mLs . The optimal blood volume is 8-10 mls per aerobic/anaerobic blood culture bottle. Performed By: #### H EMO #### [facility] (DEFAULT) [address] [place] [address] 66896 Bacteria identified Cx Nom ( Bld)on 12-07-2023 Bacteria identified Cx Nom (Unsp spec) NO GROWTH DAY 5 OF 5 [facility] Bacteria identified Cx Nom ( Bld)Ordered By: Todd Dodge on 12-07-2023 Bacteria identified Cx Nom (Unsp spec) Growth [facility] Bacteria identified Cx Nom (Unsp spec) STAPHYLOCOCCUS HOMINIS Abnormal [facility] Interpretation and review of laboratory results Abnormal [facility] CBC,PLATELETSon 12-07-2023 Hematocrit (Bld) [Volume fraction] 30.6 % Low 34.9-44.3 [facility] Comment on above: Performed By: #### B LDCULT #### [facility] (DEFAULT) [address] [place] [address] 44813 Hemoglobin (Bld) [Mass/Vol] 9.7 g/dL Low 11.4-15.2 [facility] Comment on above: Performed By: #### B LDCULT #### [facility] (DEFAULT) [address] [place] [address] 23644 MCV (RBC) [Entitic vol] 96.8 fL Normal 79.6-97.7 [facility] Comment on above: Performed By: #### B LDCULT #### [facility] (DEFAULT) [address] [place] [address] 48631 Mean Cell Hgb 30.7 pg Normal 25.9-33.9 [facility] Comment on above: Performed By: #### B LDCULT #### [facility] (DEFAULT) [address] [place] [address] 55094 Mean Cell Hgb Conc 31.7 g/dL Normal 31.4-35.9 [facility] Comment on above: Performed By: #### B LDCULT #### [facility] (DEFAULT) [address] [place] [address] 91226 Platelet mean volume (Bld) [Entitic vol] 11.0 fL Normal 8.5-12.2 [facility] Comment on above: Performed By: #### B LDCULT #### [facility] (DEFAULT) [address] [place] [address] 92535 Platelets (Bld) [#/Vol] 340 10*3/uL Normal 150-393 [facility] Comment on above: Performed By: #### B LDCULT #### [facility] (DEFAULT) [address] [place] [address] 35962 RBC (Bld) [#/Vol] 3.16 10*6/uL Low 3.91-5.04 [facility] Comment on above: Performed By: #### B LDCULT #### [facility] (DEFAULT) [address] [place] [address] 01469 RBC Distribution 13.0 % Normal 10.8-14.9 [facility] Comment on above: Performed By: #### B LDCULT #### [facility] (DEFAULT) [address] [place] [address] 62417 WBC (Bld) [#/Vol] 13.32 10*3/uL High 3.99-11.19 [facility] Comment on above: Performed By: #### B LDCULT #### [facility] (DEFAULT) [address] [place] [address] 37494 Erythrocyte distribution width (RBC) [Ratio] 13.0 % 10.8 - 14.9 % [facility] Hematocrit (Bld) [Volume fraction] 30.6 % Low 34.9 - 44.3 % [facility] Hemoglobin (Bld) [Mass/Vol] 9.7 g/dL Low 11.4 - 15.2 g/dL [facility] Interpretation and review of laboratory results Abnormal [facility] MCH (RBC) [Entitic mass] 30.7 pg 25.9 - 33.9 pg [facility] MCHC (RBC) [Mass/Vol] 31.7 g/dL 31.4 - 35.9 g/dL [facility] MCV (RBC) [Entitic vol] 96.8 fL 79.6 - 97.7 fL [facility] Platelet mean volume (Bld) [Entitic vol] 11.0 fL 8.5 - 12.2 fL [facility] Platelets (Bld) [#/Vol] 340 10*3/uL 150 - 393 K/uL [facility] RBC (Bld) [#/Vol] 3.16 10*6/uL Low [facility] WBC (Bld) [#/Vol] 13.32 10*3/uL High 3.99 - 11 .19 K/uL [facility] CHEM 7 (LYTES,BUN,CREA,GLUC) on 12-07-2023 Anion gap [Moles/Vol] 11 mmol/L Normal 7-17 [facility] Comment on above: Performed By: #### I CA #### [facility] (DEFAULT) [address] [place] [address] 22065 Chloride [Moles/Vol] 103 mmol/L Normal 98-108 [facility] Comment on above: Performed By: #### I CA #### [facility] (DEFAULT) [address] [place] [address] 73533 CO2 [Moles/Vol] 26 mmol/L Normal 21-31 [facility] Comment on above: Performed By: #### I CA #### [facility] (DEFAULT) [address] [place] [address] 23049 Creatinine [Mass/Vol] 0.49 mg/dL Low 0.50-1.20 [facility] Comment on above: Performed By: #### I CA #### [facility] (DEFAULT) [address] [place] [address] 34941 eGFR, CKD-EPI, Female > Normal >=60 [facility] Comment on above: Result Comment: Repo rted eGFR is based on the CKD-EPI 2020 equation using creatinine, age, and sex. Performed By: #### I CA #### [facility] (DEFAULT) [address] [place] [address] 64493 Glucose [Mass/Vol] 132 mg/dL High 70-99 [facility] Comment on above: Performed By: #### I CA #### [facility] (DEFAULT) [address] [place] [address] 40774 Osmolality [Osmolality] 294 mosm/kg Normal 278-305 [facility] Comment on above: Performed By: #### I CA #### [facility] (DEFAULT) [address] [place] [address] 28586 Potassium [Moles/Vol] 4.3 mmol/L Normal 3.5-5.0 [facility] Comment on above: Performed By: #### I CA #### [facility] (DEFAULT) [address] [place] [address] 60229 Sodium [Moles/Vol] 136 mmol/L Normal 135-145 [facility] Comment on above: Performed By: #### I CA #### [facility] (DEFAULT) [address] [place] [address] 24545 Urea nitrogen [Mass/Vol] 31 mg/dL High 7-25 [facility] Comment on above: Performed By: #### I CA #### [facility] (DEFAULT) [address] [place] [address] 99357 Urea nitrogen/Creatinine [Mass ratio] 63 mg/mg Normal [facility] Comment on above: Performed By: #### I CA #### [facility] (DEFAULT) [address] [place] [address] 49061 Anion gap [Moles/Vol] 11 mmol/L 7 - 17 mmol/L [facility] Chloride [Moles/Vol] 103 mmol/L 98 - 10 8 mmol/L [facility] CO2 [Moles/Vol] 26 mmol/L 21 - 31 mmol/L [facility] Creatinine [Mass/Vol] 0.49 mg/dL Low 0.50 - 1.20 mg/dL [facility] eGFR, CKD-EPI, Female - PINF [facility] Glucose [Mass/Vol] 132 mg/dL High 70 - 99 mg/dL [facility] Interpretation and review of laboratory results Abnormal [facility] Osmolality Calc [Osmolality] 294 [facility] Potassium [Moles/Vol] 4.3 mmol/L 3.5 - 5.0 mmol/L [facility] Sodium [Moles/Vol] 136 mmol/L 135 - 145 mmol/L [facility] Urea nitrogen [Mass/Vol] 31 mg/dL High 7 - 25 mg/dL [facility] Urea nitrogen/Creatinine [Mass ratio] 63 mg/mg [facility] IONIZED CALCIUM, WHOLE BLOOD on 12-07-2023 ICA 4.30 mg/dL Low 4.60-5.30 [facility] Comment on above: Performed By: #### M , [facility] #### [facility] (DEFAULT) [address] [place] [address] 25013 Calcium.ionized (Bld) [Moles/Vol] 4.30 mg/dL Low 4.60 - 5.30 mg/dL [facility] Interpretation and review of laboratory results Abnormal [facility] MAGNESIUMon 12-07-2023 Magnesium [Mass/Vol] 2.0 mg/dL Normal 1.6-2.6 [facility] Comment on above: Performed By: #### I CA #### [facility] (DEFAULT) [address] [place] [address] 19688 Magnesium [Mass/Vol] 2.0 mg/dL 1.6 - 2 .6 mg/dL [facility] No Panel Informationon 12-07 Interpretation and review of laboratory results Normal [facility] PHOSPHATE, INORGANICon 12-07 Phosphorous 3.5 mg/dL Normal 2.2-4.6 [facility] Comment on above: Performed By: #### I CA #### [facility] (DEFAULT) [address] [place] [address] Phosphate [Mass/Vol] 3.5 mg/dL 2.2 - 4 .6 mg/dL [facility] US.doppler Upper extremity v ein - bilateralOrdered By: Angely Rendon on 12-07-2023 [facility] Work Phone: US.doppler Upper extremity v ein - bilateralon 12-07-2023 Radiology Study observation (narrative) [facility] BLOOD CULTUREon 12-06-2023 Bacteria identified Cx Nom (Unsp spec) NO GROWTH DAY 5 OF 5 Normal [facility] Comment on above: Order Comment: 2 Bot tles (1 Set - consists of 1 Aerobic bottle and 1 Anaerobic bottle) -1st Peripheral DrawFor syringe method draw:If able to obtain adequate sample (20 ml) inoculate anaerobic bottle firstIf inadequate sample obtained (less than 20 ml) inoculate aerobic bottle firstFor vacutainer method draw: Fill aerobic bottle first, then anaerobic Performed By: #### Terence BUCHANAN #### [facility] (DEFAULT) [address] [place] [address] 00433 Bacteria identified Cx Nom (Unsp spec) NO GROWTH DAY 5 OF 5 Normal [facility] Comment on above: Order Comment: 2 Bot tles (1 Set - consists of 1 Aerobic bottle and 1 Anaerobic bottle) -1st Peripheral DrawFor syringe method draw:If able to obtain adequate sample (20 ml) inoculate anaerobic bottle firstIf inadequate sample obtained (less than 20 ml) inoculate aerobic bottle firstFor vacutainer method draw: Fill aerobic bottle first, then anaerobic Performed By: #### Terence BUCHANAN #### [facility] (DEFAULT) [address] [place] [address] 29509 CBC,PLATELETSon 12-06-2023 Hematocrit (Bld) [Volume fraction] 32.7 % Low 34.9-44.3 [facility] Comment on above: Performed By: #### JEAN MARIE LA #### [facility] (DEFAULT) [address] [place] [address] 32823 Hemoglobin (Bld) [Mass/Vol] 10.0 g/dL Low 11.4-15.2 [facility] Comment on above: Performed By: #### JEAN MARIE LA #### [facility] (DEFAULT) [address] [place] [address] 62582 MCV (RBC) [Entitic vol] 99.4 fL High 79.6-97.7 [facility] Comment on above: Performed By: #### Iraida ALLEN CHM7 #### [facility] (DEFAULT) [address] [place] [address] 77038 Mean Cell Hgb 30.4 pg Normal 25.9-33.9 [facility] Comment on above: Performed By: #### Iraida ALLEN CHM7 #### [facility] (DEFAULT) [address] [address] Mean Cell Hgb Conc 30.6 g/dL Low 31.4-35.9 [facility] Comment on above: Performed By: #### LUCIANO LA7 #### [facility] (DEFAULT) [address] [place] [address] 97583 Platelet mean volume (Bld) [Entitic vol] 10.8 fL Normal 8.5-12.2 [facility] Comment on above: Performed By: #### JEAN MARIE LA #### [facility] (DEFAULT) [address] [address] Platelets (Bld) [#/Vol] 286 10*3/uL Normal 150-393 [facility] Comment on above: Performed By: #### Iraida ALLEN CHM7 #### [facility] (DEFAULT) [address] [place] [address] 41006 RBC (Bld) [#/Vol] 3.29 10*6/uL Low 3.91-5.04 [facility] Comment on above: Performed By: #### Iraida ALLEN CHM7 #### [facility] (DEFAULT) [address] [address] RBC Distribution 13.2 % Normal 10.8-14.9 [facility] Comment on above: Performed By: #### Iraida ALLEN CHM7 #### [facility] (DEFAULT) [address] [place] [address] WBC (Bld) [#/Vol] 15.21 10*3/uL High 3.99-11.19 [facility] Comment on above: Performed By: #### M ALEJANDRO, CHM7 #### [facility] (DEFAULT) [address] [place] [address] Erythrocyte distribution width (RBC) [Ratio] 13.2 % 10.8 - 14.9 % [facility] Hematocrit (Bld) [Volume fraction] 32.7 % Low 34.9 - 44.3 % [facility] Hemoglobin (Bld) [Mass/Vol] 10.0 g/dL Low 11.4 - 15.2 g/dL [facility] Interpretation and review of laboratory results Abnormal [facility] MCH (RBC) [Entitic mass] 30.4 pg 25.9 - 33.9 pg [facility] MCHC (RBC) [Mass/Vol] 30.6 g/dL Low 31.4 - 35.9 g/dL [facility] MCV (RBC) [Entitic vol] 99.4 fL High 79.6 - 97.7 fL [facility] Platelet mean volume (Bld) [Entitic vol] 10.8 fL 8.5 - 12.2 fL [facility] Platelets (Bld) [#/Vol] 286 10*3/uL 150 - 393 K/uL [facility] RBC (Bld) [#/Vol] 3.29 10*6/uL Low [facility] WBC (Bld) [#/Vol] 15.21 10*3/uL High 3.99 - 11 .19 K/uL [facility] CHEM 7 (LYTES,BUN,CREA,GLUC) on 12-06-2023 Anion gap [Moles/Vol] 12 mmol/L Normal 7-17 [facility] Comment on above: Performed By: #### B LDCULT #### [facility] (DEFAULT) [address] [place] [address] 95275 Chloride [Moles/Vol] 105 mmol/L Normal 98-108 [facility] Comment on above: Performed By: #### B LDCULT #### [facility] (DEFAULT) [address] [place] [address] 09053 CO2 [Moles/Vol] 28 mmol/L Normal 21-31 [facility] Comment on above: Performed By: #### B LDCULT #### [facility] (DEFAULT) [address] [place] [address] 01816 Creatinine [Mass/Vol] 0.48 mg/dL Low 0.50-1.20 [facility] Comment on above: Performed By: #### B LDCULT #### [facility] (DEFAULT) [address] [place] [address] 26669 eGFR, CKD-EPI, Female > Normal >=60 [facility] Comment on above: Result Comment: Repo rted eGFR is based on the CKD-EPI 2020 equation using creatinine, age, and sex. Performed By: #### B LDCULT #### [facility] (DEFAULT) [address] [place] [address] 20049 Glucose [Mass/Vol] 95 mg/dL Normal 70-99 [facility] Comment on above: Performed By: #### B LDCULT #### [facility] (DEFAULT) [address] [place] [address] 41241 Osmolality [Osmolality] 302 mosm/kg Normal 278-305 [facility] Comment on above: Performed By: #### B LDCULT #### [facility] (DEFAULT) [address] [place] [address] 74149 Potassium [Moles/Vol] 4.8 mmol/L Normal 3.5-5.0 [facility] Comment on above: Performed By: #### B LDCULT #### [facility] (DEFAULT) [address] [place] [address] 32966 Sodium [Moles/Vol] 140 mmol/L Normal 135-145 [facility] Comment on above: Performed By: #### B LDCULT #### [facility] (DEFAULT) [address] [place] [address] Urea nitrogen [Mass/Vol] 34 mg/dL High 7-25 [facility] Comment on above: Performed By: #### B LDCULT #### [facility] (DEFAULT) [address] [place] [address] Urea nitrogen/Creatinine [Mass ratio] 71 mg/mg Normal [facility] Comment on above: Performed By: #### B LDCULT #### [facility] (DEFAULT) [address] [place] [address] 71647 Anion gap [Moles/Vol] 12 mmol/L 7 - 17 mmol/L [facility] Chloride [Moles/Vol] 105 mmol/L 98 - 10 8 mmol/L [facility] CO2 [Moles/Vol] 28 mmol/L 21 - 31 mmol/L [facility] Creatinine [Mass/Vol] 0.48 mg/dL Low 0.50 - 1.20 mg/dL [facility] eGFR, CKD-EPI, Female - PINF [facility] Glucose [Mass/Vol] 95 mg/dL 70 - 99 mg/dL [facility] Interpretation and review of laboratory results Abnormal [facility] Osmolality Calc [Osmolality] 302 [facility] Potassium [Moles/Vol] 4.8 mmol/L 3.5 - 5.0 mmol/L [facility] Sodium [Moles/Vol] 140 mmol/L 135 - 145 mmol/L [facility] Urea nitrogen [Mass/Vol] 34 mg/dL High 7 - 25 mg/dL [facility] Urea nitrogen/Creatinine [Mass ratio] 71 mg/mg [facility] CONTINUOUS CARDIAC MONITORIN G STRIPOrdered By: Unassigned Pacs on 12-06-2023 [facility] Work Phone: IONIZED CALCIUM, WHOLE BLOOD on 12-06-2023 ICA 4.61 mg/dL Normal 4.60-5.30 [facility] Comment on above: Performed By: #### I CA #### [facility] (DEFAULT) [address] [place] [address] 03986 Calcium.ionized (Bld) [Moles/Vol] 4.61 mg/dL 4.60 - 5.30 mg/dL [facility] Interpretation and review of laboratory results Normal [facility] MAGNESIUMon 12-06-2023 Magnesium [Mass/Vol] 2.1 mg/dL Normal 1.6-2.6 [facility] Comment on above: Performed By: #### B LDCULT #### [facility] (DEFAULT) [address] [place] [address] 84045 Magnesium [Mass/Vol] 2.1 mg/dL 1.6 - 2 .6 mg/dL [facility] No Panel Informationon 12-06 Interpretation and review of laboratory results Normal [facility] PHOSPHATE, INORGANICon 12-06 Phosphorous 4.8 mg/dL High 2.2-4.6 [facility] Comment on above: Performed By: #### H EMOGC #### [facility] (DEFAULT) [address] [place] [address] 74624 Interpretation and review of laboratory results Abnormal [facility] Phosphate [Mass/Vol] 4.8 mg/dL High 2.2 - 4 .6 mg/dL [facility] Phosphorous 4.0 mg/dL Normal 2.2-4.6 [facility] Comment on above: Performed By: #### B LDCULT #### [facility] (DEFAULT) [address] [place] [address] 16160 Phosphate [Mass/Vol] 4.0 mg/dL 2.2 - 4 .6 mg/dL [facility] XR ABDOMEN 1 VIEWon 12-06-19 XR ABDOMEN 1 VIEW EXAM: XR ABDOMEN 1 VIEW, 12/06/2023 04:33 AM COMPARISON: Abdominal radiograph dated December 06, 2023 CLINICAL INDICATIONS: Ng placement FINDINGS: Tubes: Dobbhoff tube has been retracted with the tip in the distal stomach pointed superiorly and to the left. Nonobstructive bowel gas pattern. Mild stool burden. Osseous structures are unchanged. IMPRESSION: Interval retraction of the Dobbhoff tube with the tip in the distal stomach pointed superiorly into the left. If postpyloric positioning is needed, repositioning prior to advancement is recommended. Normal [facility] XR ABDOMEN 1 VIEW EXAM: XR ABDOMEN 1 VIEW, 12/06/2023 01:18 AM COMPARISON: Abdominal radiograph December 05, 2023 CLINICAL INDICATIONS: DHT FINDINGS: Limited [id number] for enteric tube evaluation. Dobbhoff tube is looped in the distal stomach with tip in the gastric fundus. No definite pneumatosis or pneumoperitoneum. Nonobstructive bowel gas pattern. Levoscoliotic lumbar spinal curvature. Scattered vascular calcifications. IMPRESSION: Dobbhoff tube is looped in the distal stomach with tip in the proximal stomach. Repositioning/advanc ement recommended. Normal [facility] XR ABDOMEN 1 VIEW PORTABLEon 12-06-2023 XR ABDOMEN 1 VIEW PORTABLE EXAM: XR ABDOMEN 1 VIEW PORTABLE, 12/06/2023 01:56 AM COMPARISON: Multiple priors including December 06, 2023 CLINICAL INDICATIONS: DHT FINDINGS: Tubes: Interval retraction of the Dobbhoff tube which remains coiled in the stomach. No definite pneumoperitoneum or pneumatosis of the bowel wall. There is a non obstructive bowel gas pattern. Visualized osseous structures are unremarkable for the patient's age. IMPRESSION: Dobbhoff tube remains coiled in the stomach with the tip in proximal stomach body. Discussed with Joycelyn Lala RN at 2:48am on Dec 06, 2023. I personally viewed and interpreted these images and I have reviewed and approved this report. Normal [facility] XR Abdomen Single view[facility]) [facility] Rad[facility] (narrative) [facility] XR Abdomen Single viewOrdere d By: Js Cornejo on 12-06-2023 [facility] Work Phone: CBC,PLATELETSon 12-05-2023 Hematocrit (Bld) [Volume fraction] 34.1 % Low 34.9-44.3 [facility] Comment on above: Performed By: #### 1 0DRUG #### [facility] (DEFAULT) [address] [place] [address] 47113 Hemoglobin (Bld) [Mass/Vol] 10.7 g/dL Low 11.4-15.2 [facility] Comment on above: Performed By: #### 1 0DRUG #### [facility] (DEFAULT) [address] [place] [address] 96795 MCV (RBC) [Entitic vol] 97.2 fL Normal 79.6-97.7 [facility] Comment on above: Performed By: #### 1 0DRUG #### [facility] (DEFAULT) [address] [place] [address] 04231 Mean Cell Hgb 30.5 pg Normal 25.9-33.9 [facility] Comment on above: Performed By: #### 1 0DRUG #### [facility] (DEFAULT) [address] [place] [address] 07967 Mean Cell Hgb Conc 31.4 g/dL Normal 31.4-35.9 [facility] Comment on above: Performed By: #### 1 0DRUG #### [facility] (DEFAULT) [address] [place] [address] 87088 Platelet mean volume (Bld) [Entitic vol] 11.0 fL Normal 8.5-12.2 [facility] Comment on above: Performed By: #### 1 0DRUG #### [facility] (DEFAULT) [address] [place] [address] 57061 Platelets (Bld) [#/Vol] 300 10*3/uL Normal 150-393 [facility] Comment on above: Performed By: #### 1 0DRUG #### [facility] (DEFAULT) [address] [place] [address] 62233 RBC (Bld) [#/Vol] 3.51 10*6/uL Low 3.91-5.04 [facility] Comment on above: Performed By: #### 1 0DRUG #### [facility] (DEFAULT) [address] [place] [address] 40965 RBC Distribution 13.5 % Normal 10.8-14.9 [facility] Comment on above: Performed By: #### 1 0DRUG #### [facility] (DEFAULT) [address] [place] [address] 25089 WBC (Bld) [#/Vol] 16.35 10*3/uL High 3.99-11.19 [facility] Comment on above: Performed By: #### 1 0DRUG #### [facility] (DEFAULT) [address] [place] [address] 26673 Erythrocyte distribution width (RBC) [Ratio] 13.5 % 10.8 - 14.9 % [facility] Hematocrit (Bld) [Volume fraction] 34.1 % Low 34.9 - 44.3 % [facility] Hemoglobin (Bld) [Mass/Vol] 10.7 g/dL Low 11.4 - 15.2 g/dL [facility] Interpretation and review of laboratory results Abnormal [facility] MCH (RBC) [Entitic mass] 30.5 pg 25.9 - 33.9 pg [facility] MCHC (RBC) [Mass/Vol] 31.4 g/dL 31.4 - 35.9 g/dL [facility] MCV (RBC) [Entitic vol] 97.2 fL 79.6 - 97.7 fL [facility] Platelet mean volume (Bld) [Entitic vol] 11.0 fL 8.5 - 12.2 fL [facility] Platelets (Bld) [#/Vol] 300 10*3/uL 150 - 393 K/uL [facility] RBC (Bld) [#/Vol] 3.51 10*6/uL Low [facility] WBC (Bld) [#/Vol] 16.35 10*3/uL High 3.99 - 11 .19 K/uL [facility] CHEM 7 (LYTES,BUN,CREA,GLUC) on 12-05-2023 Anion gap [Moles/Vol] 10 mmol/L Normal - [facility] Comment on above: Performed By: #### [facility] #### [facility] (DEFAULT) [address] [place] [address] 44705 Chloride [Moles/Vol] 109 mmol/L High 98-108 [facility] Comment on above: Performed By: #### [facility] #### [facility] (DEFAULT) [address] [place] [address] 14556 CO2 [Moles/Vol] 27 mmol/L Normal 21-31 [facility] Comment on above: Performed By: #### [facility] #### [facility] (DEFAULT) [address] [place] [address] 23152 Creatinine [Mass/Vol] 0.49 mg/dL Low 0.50-1.20 [facility] Comment on above: Performed By: #### H EMO #### [facility] (DEFAULT) [address] [place] [address] 44732 eGFR, CKD-EPI, Female > Normal >=60 [facility] Comment on above: Result Comment: Repo rted eGFR is based on the CKD-EPI 2020 equation using creatinine, age, and sex. Performed By: #### H EMOGC #### [facility] (DEFAULT) [address] [place] [address] 50130 Glucose [Mass/Vol] 136 mg/dL High 70-99 [facility] Comment on above: Performed By: #### H EMOGC #### [facility] (DEFAULT) [address] [place] [address] Osmolality [Osmolality] 308 mosm/kg High 278-305 [facility] Comment on above: Performed By: #### H EMOGC #### [facility] (DEFAULT) [address] [place] [address] 68525 Potassium [Moles/Vol] 4.3 mmol/L Normal 3.5-5.0 [facility] Comment on above: Performed By: #### H EMOGC #### [facility] (DEFAULT) [address] [place] [address] 41809 Sodium [Moles/Vol] 142 mmol/L Normal 135-145 [facility] Comment on above: Performed By: #### H EMOGC #### [facility] (DEFAULT) [address] [place] [address] 99778 Urea nitrogen [Mass/Vol] 36 mg/dL High 7-25 [facility] Comment on above: Performed By: #### H EMO #### [facility] (DEFAULT) [address] [place] [address] 04405 Urea nitrogen/Creatinine [Mass ratio] 73 mg/mg Normal [facility] Comment on above: Performed By: #### H EMOGC #### [facility] (DEFAULT) [address] [place] [address] 77623 Anion gap [Moles/Vol] 10 mmol/L 7 - 17 mmol/L [facility] Chloride [Moles/Vol] 109 mmol/L High 98 - 10 8 mmol/L [facility] CO2 [Moles/Vol] 27 mmol/L 21 - 31 mmol/L [facility] Creatinine [Mass/Vol] 0.49 mg/dL Low 0.50 - 1.20 mg/dL [facility] eGFR, CKD-EPI, Female - PINF [facility] Glucose [Mass/Vol] 136 mg/dL High 70 - 99 mg/dL [facility] Interpretation and review of laboratory results Abnormal [facility] Osmolality Calc [Osmolality] 308 High [facility] Potassium [Moles/Vol] 4.3 mmol/L 3.5 - 5.0 mmol/L [facility] Sodium [Moles/Vol] 142 mmol/L 135 - 145 mmol/L [facility] Urea nitrogen [Mass/Vol] 36 mg/dL High 7 - 25 mg/dL [facility] Urea nitrogen/Creatinine [Mass ratio] 73 mg/mg [facility] CT ANGIO BRAIN/NECKon 2023 CT ANGIO BRAIN/NECK EXAM: CT ANGIO BRAIN/NECK, 12/05/2023 13:47 PM COMPARISON: Cerebral angiogram performed on November 29, 2023. CT angiogram of the neck and brain performed on November 29, 2023. Head CT performed on December 03, 2023. MRI of the brain performed on November 30, 2023. CLINICAL INDICATIONS: 78 years Female interval eval; RELEVANT CLINICAL HISTORY: TECHNIQUE: A series of transaxial multislice computerized tomographic images are obtained with helical technique from top of aortic arch to vertex following bolus intravenous administration of nonionic contrast. Axial thin section source images, as well as sagittal and coronal thin section reformats, were provided at the scanner. Additional multiplanar and 3D reconstructions were provided. CONTRAST: iohexol (OMNIPAQUE) 350 MG/ML injection 1-171 mL; Route of Administration: Intravenous; Dose: 100 mL. FINDINGS: CT ANGIOGRAM NECK: AORTIC ARCH: Conventional anatomic origin of the great vessels. Atherosclerosis involving the great vessel origins is noted, without significant stenosis. 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 Common carotid artery is patent and normal in caliber. Internal carotid artery origin at the bifurcation demonstrates atherosclerotic plaque, without significant stenosis. More distal cervical segments of the internal carotid artery are patent and normal in caliber. LEFT CAROTID ARTERY: Common carotid artery is patent and normal in caliber. Internal carotid artery origin at the bifurcation demonstrates atherosclerotic plaque, without significant stenosis. More distal cervical segments of the internal carotid artery are patent and normal in caliber. RIGHT VERTEBRAL ARTERY: Origin is patent. More distal cervical segments are patent and normal in caliber. LEFT VERTEBRAL ARTERY: Origin is patent. More distal cervical segments are patent and normal in caliber. OTHER: No dissection or pseudoaneurysm. CT ANGIOGRAM HEAD: There has been interval reconstitution of the previously noted occluded segments of the right intracranial carotid artery and proximal to mid M1 segment of the right middle cerebral artery. New occlusion noted at the right M1/M2 junction involving the dominant inferior branch of the right middle cerebral artery which is associated with poor distal collateralization. Superior branch of the right middle cerebral artery is patent. Intracranial segments of the left carotid artery, left middle cerebral artery, bilateral anterior cerebral arteries, intracranial vertebral arteries, basilar artery, and bilateral posterior cerebral arteries are patent and demonstrate no evidence of proximal high-grade stenosis. Atherosclerotic calcification noted within the cavernous segments. No evidence of an aneurysm or arteriovenous malformation. ADDITIONAL FINDINGS: Multiple thyroid nodules suggestive of a multinodular goiter. Dominant nodule in the thyroid isthmus region measures 2.6 cm and may be further assessed with a nonemergent thyroid ultrasound. Mild scattered opacity in the sinuses. Cervical levoscoliosis. Degenerative changes within the spine. 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 IMPRESSION: 1. 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 2. Interval occlusion at the M1-M2 junction beginning at the origin of the dominant inferior branch of the right middle cerebral artery which is associated with poor distal collateralization. Normal [facility] RADIOLOGY RADIOLOGY [facility] Radiology Study observation (narrative) [facility] CT ANGIO BRAIN/NECKOrdered B y: Sammy Brannon on 12-05-2023 [facility] Work Phone: IONIZED CALCIUM, WHOLE BLOOD on 12-05-2023 ICA 4.57 mg/dL Low 4.60-5.30 [facility] Comment on above: Performed By: #### [facility] #### [facility] (DEFAULT) [address] [place] [address] 06767 IONIZED CALCIUM, WHOLE BLOOD Ordered By: Payam Rhoades on 12-05-2023 Calcium.ionized (Bld) [Moles/Vol] 4.57 mg/dL Low 4.60 - 5.30 mg/dL [facility] Interpretation and review of laboratory results Abnormal [facility] MAGNESIUMon 12-05-2023 Magnesium [Mass/Vol] 2.3 mg/dL Normal 1.6-2.6 [facility] Comment on above: Performed By: #### [facility] #### [facility] (DEFAULT) [address] [place] [address] 72229 Magnesium [Mass/Vol] 2.3 mg/dL 1.6 - 2 .6 mg/dL [facility] No Panel Informationon 12-05 Interpretation and review of laboratory results Normal [facility] PHOSPHATE, INORGANICon 12-05 Phosphorous 3.5 mg/dL Normal 2.2-4.6 [facility] Comment on above: Performed By: #### [facility] #### [facility] (DEFAULT) [address] [place] [address] 27786 Phosphate [Mass/Vol] 3.5 mg/dL 2.2 - 4 .6 mg/dL [facility] Portable XR Chest [facility]son RADIOLOGY RADIOLOGY [facility] Radiology Study observation (narrative) [facility] Portable XR Chest ViewsOrder ed By: Chantel Machado on 12-05-2023 [facility] XR ABDOMEN 1 VIEWon 12-05-19 24 XR ABDOMEN 1 VIEW EXAM: XR ABDOMEN 1 VIEW, 12/05/2023 17:35 PM COMPARISON: Radiograph November 30, 2023 CLINICAL INDICATIONS: DHT FINDINGS: Tubes: Weighted enteric tube tip is in the distal stomach in the antropyloric region. Nonobstructive bowel gas pattern in the included abdomen. No definite pneumatosis. No gross free air. Unchanged osseous structures. IMPRESSION: Dobbhoff tube tip in the distal stomach. Normal [facility] XR Abdomen Single viewon RADIOLOGY RADIOLOGY [facility] Radiology Study [facility]narrative) [facility] X[facility] Abdomen Single viewOrdere d By: Rufus Smith on 12-05-2023 [facility] CHEST 1 VIEW PORTABLEon 0 12-05-2023 XR CHEST 1 VIEW PORTABLE XR CHEST 1 VIEW PORTABLE, 12/05/2023 5:34 PM CLINICAL INFORMATION: Female, 78 years old. concern for aspiration TECHNIQUE: XR CHEST 1 VIEW PORTABLE COMPARISON: November 01, 2024 FINDINGS: Enteric tube extends beyond inferior margin of the image. Cardiomediastinal silhouette is stable. Bandlike basilar opacities, favored to represent atelectasis. No focal consolidation, significant pleural effusion, or pneumothorax. There is elevation of right hemidiaphragm. IMPRESSION: No radiographic evidence of acute cardiopulmonary abnormality. Normal [facility] BLOOD CULTUREon 12-04-2023 Bacteria identified Cx Nom (Unsp spec) Normal [facility] Comment on above: Order Comment: 2 Bot tles (1 Set - consists of 1 Aerobic bottle and 1 Anaerobic bottle) -1st Peripheral DrawFor syringe method draw:If able to obtain adequate sample (20 ml) inoculate anaerobic bottle firstIf inadequate sample obtained (less than 20 ml) inoculate aerobic bottle firstFor vacutainer method draw: Fill aerobic bottle first, then anaerobic Result Comment: Grow 9 Staphylococcus epidermidis The recovery of this organism(s) from a single blood culture most likely represents contamination during collection. Susceptibility testing will not be performed. Please evaluate carefully prior to initiation or continuation of microbial therapy. If further workup is needed, please contact the blood culture area at [phone] within 2 days. Performed By: #### [facility] #### [facility] (DEFAULT) [address] [place] [address] Bacteria identified Cx Nom (Unsp spec) NO GROWTH DAY 5 OF 5 Normal [facility] Comment on above: Order Comment: 2 Bot tles (1 Set - consists of 1 Aerobic bottle and 1 Anaerobic bottle) -1st Peripheral DrawFor syringe method draw:If able to obtain adequate sample (20 ml) inoculate anaerobic bottle firstIf inadequate sample obtained (less than 20 ml) inoculate aerobic bottle firstFor vacutainer method draw: Fill aerobic bottle first, then anaerobic Performed By: #### [facility] #### [facility] (DEFAULT) [address] [place] [address] 30837 CBC,PLATELETSon 12-04-2023 Hematocrit (Bld) [Volume fraction] 33.1 % Low 34.9-44.3 [facility] Comment on above: Performed By: #### LUCIANO LA7 #### [facility] (DEFAULT) [address] [address] Hemoglobin (Bld) [Mass/Vol] 10.6 g/dL Low 11.4-15.2 [facility] Comment on above: Performed By: #### LUCIANO LA7 #### [facility] (DEFAULT) [address] [place] [address] 02042 MCV (RBC) [Entitic vol] 95.9 fL Normal 79.6-97.7 [facility] Comment on above: Performed By: #### LUCIANO LA7 #### [facility] (DEFAULT) [address] [place] [address] 17005 Mean Cell Hgb 30.7 pg Normal 25.9-33.9 [facility] Comment on above: Performed By: #### LUCIANO LA7 #### [facility] (DEFAULT) [address] [place] [address] 78484 Mean Cell Hgb Conc 32.0 g/dL Normal 31.4-35.9 [facility] [facility] Comment on above: Performed By: #### LUCIANO LA7 #### [facility] (DEFAULT) [address] [place] [address] 42706 Platelet mean volume (Bld) [Entitic vol] 11.2 fL Normal 8.5-12.2 [facility] Comment on above: Performed By: #### LUCIANO LA7 #### [facility] (DEFAULT) [address] [place] [address] 35084 Platelets (Bld) [#/Vol] 278 10*3/uL Normal 150-393 [facility] Comment on above: Performed By: #### Iraida ALLEN CHM7 #### [facility] (DEFAULT) [address] [place] [address] 63883 RBC (Bld) [#/Vol] 3.45 10*6/uL Low 3.91-5.04 [facility] Comment on above: Performed By: #### LUCIANO LA7 #### [facility] (DEFAULT) [address] [place] [address] 14906 RBC Distribution 13.3 % Normal 10.8-14.9 [facility] Comment on above: Performed By: #### JEAN MARIE LA #### [facility] (DEFAULT) [address] [place] [address] 09052 WBC (Bld) [#/Vol] 19.04 10*3/uL High 3.99-11.19 [facility] Comment on above: Performed By: #### LUCIANO LA7 #### [facility] (DEFAULT) [address] [place] [address] 22717 Erythrocyte distribution width (RBC) [Ratio] 13.3 % 10.8 - 14.9 % [facility] Hematocrit (Bld) [Volume fraction] 33.1 % Low 34.9 - 44.3 % [facility] Hemoglobin (Bld) [Mass/Vol] 10.6 g/dL Low 11.4 - 15.2 g/dL [facility] Interpretation and review of laboratory results Abnormal [facility] MCH (RBC) [Entitic mass] 30.7 pg 25.9 - 33.9 pg [facility] MCHC (RBC) [Mass/Vol] 32.0 g/dL 31.4 - 35.9 g/dL [facility] MCV (RBC) [Entitic vol] 95.9 fL 79.6 - 97.7 fL [facility] Platelet mean volume (Bld) [Entitic vol] 11.2 fL 8.5 - 12.2 fL [facility] Platelets (Bld) [#/Vol] 278 10*3/uL 150 - 393 K/uL [facility] RBC (Bld) [#/Vol] 3.45 10*6/uL Low [facility] WBC (Bld) [#/Vol] 19.04 10*3/uL High 3.99 - 11 .19 K/uL [facility] CHEM 7 (LYTES,BUN,CREA,GLUC) on 12-04-2023 Anion gap [Moles/Vol] 11 mmol/L 7 - 17 mmol/L [facility] Chloride [Moles/Vol] 111 mmol/L High 98 - 10 8 mmol/L [facility] CO2 [Moles/Vol] 27 mmol/L 21 - 31 mmol/L [facility] Creatinine [Mass/Vol] 0.45 mg/dL Low 0.50 - 1.20 mg/dL [facility] eGFR, CKD-EPI, Female - PINF [facility] Glucose [Mass/Vol] 136 mg/dL High 70 - 99 mg/dL [facility] Interpretation and review of laboratory results Abnormal [facility] Osmolality Calc [Osmolality] 311 High [facility] Potassium [Moles/Vol] 4.1 mmol/L 3.5 - 5.0 mmol/L [facility] Sodium [Moles/Vol] 145 mmol/L 135 - 145 mmol/L [facility] Urea nitrogen [Mass/Vol] 32 mg/dL High 7 - 25 mg/dL [facility] Urea nitrogen/Creatinine [Mass ratio] 71 mg/mg [facility] Anion gap [Moles/Vol] 11 mmol/L Normal 7-17 [facility] Comment on above: Performed By: #### 1 0DRUG #### [facility] (DEFAULT) [address] [place] [address] Chloride [Moles/Vol] 111 mmol/L High 98-108 [facility] Comment on above: Performed By: #### 1 0DRUG #### [facility] (DEFAULT) [address] [place] [address] 60358 CO2 [Moles/Vol] 27 mmol/L Normal 21-31 [facility] Comment on above: Performed By: #### 1 0DRUG #### [facility] (DEFAULT) [address] [place] [address] 47389 Creatinine [Mass/Vol] 0.45 mg/dL Low 0.50-1.20 [facility] Comment on above: Performed By: #### 1 0DRUG #### [facility] (DEFAULT) [address] [place] [address] 66961 eGFR, CKD-EPI, Female > Normal >=60 [facility] Comment on above: Result Comment: Repo rted eGFR is based on the CKD-EPI 2020 equation using creatinine, age, and sex. Performed By: #### 1 0DRUG #### [facility] (DEFAULT) [address] [place] [address] 37744 Glucose [Mass/Vol] 136 mg/dL High 70-99 [facility] Comment on above: Performed By: #### 1 0DRUG #### [facility] (DEFAULT) [address] [place] [address] 11839 Osmolality [Osmolality] 311 mosm/kg High 278-305 [facility] Comment on above: Performed By: #### 1 0DRUG #### [facility] (DEFAULT) [address] [place] [address] 32068 Potassium [Moles/Vol] 4.1 mmol/L Normal 3.5-5.0 [facility] Comment on above: Performed By: #### 1 0DRUG #### [facility] (DEFAULT) [address] [place] [address] 73254 Sodium [Moles/Vol] 145 mmol/L Normal 135-145 [facility] Comment on above: Performed By: #### 1 0DRUG #### [facility] (DEFAULT) [address] [place] [address] 44324 Urea nitrogen [Mass/Vol] 32 mg/dL High 7-25 [facility] Comment on above: Performed By: #### 1 0DRUG #### [facility] (DEFAULT) [address] [place] [address] Urea nitrogen/Creatinine [Mass ratio] 71 mg/mg Normal [facility] Comment on above: Performed By: #### 1 0DRUG #### [facility] (DEFAULT) [address] [place] [address] IONIZED CALCIUM, WHOLE BLOOD on 12-04-2023 Calcium.ionized (Bld) [Moles/Vol] 4.66 mg/dL 4.60 - 5.30 mg/dL [facility] Interpretation and review of laboratory results Normal [facility] ICA 4.66 mg/dL Normal 4.60-5.30 [facility] Comment on above: Performed By: #### H EMO #### [facility] (DEFAULT) [address] [place] [address] 93491 MAGNESIUMon 12-04-2023 Magnesium [Mass/Vol] 2.0 mg/dL 1.6 - 2 .6 mg/dL [facility] Magnesium [Mass/Vol] 2.0 mg/dL Normal 1.6-2.6 [facility] Comment on above: Performed By: #### 1 0DRUG #### [facility] (DEFAULT) [address] [place] [address] 15695 No Panel Informationon 12-04 Interpretation and review of laboratory results Normal [facility] PHOSPHATE, INORGANICon 12-04 Phosphate [Mass/Vol] 2.8 mg/dL 2.2 - 4 .6 mg/dL [facility] Phosphorous 2.8 mg/dL Normal 2.2-4.6 [facility] Comment on above: Performed By: #### 1 0DRUG #### [facility] (DEFAULT) [address] [place] [address] SODIUMon 12-04-2023 Sodium [Moles/Vol] 144 mmol/L Normal 135-145 [facility] Comment on above: Order Comment: While on 3% Hypertonic Saline. Performed By: #### H EMO #### [facility] (DEFAULT) [address] [place] [address] Interpretation and review of laboratory results Normal [facility] Sodium [Moles/Vol] 144 mmol/L 135 - 145 mmol/L [facility] BLOOD CULTURE IDENTIFICATION PANELOrdered By: Maria Dolores Castellanos on 12-03-2023 Acinetobacter calcoaceticus-baumannii complex DNA Not detected Not Detected [facility] Bacteroides fragilis DNA Not detected Not Detected [facility] C. albicans DNA CARLTON+non-probe Ql (Pos bld culture) Not detected Not Detected [facility] C. glabrata DNA CARLTON+non-probe Ql (Pos bld culture) Not detected Not Detected [facility] C. krusei DNA CARLTON+non-probe Ql (Pos bld culture) Not detected Not Detected [facility] C. parapsilosis DNA CARLTON+non-probe Ql (Pos bld culture) Not detected Not Detected [facility] C. tropicalis DNA CARLTON+non-probe Ql (Pos bld culture) Not detected Not Detected [facility] Daksha auris DNA Not detected Not Detected [facility] Cryptococcus ayse/neoformans DNA Not detected Not Detected [facility] E. cloacae complex DNA CARLTON+non-probe Ql (Pos bld culture) Not detected Not Detected [facility] E. coli DNA CARLTON+non-probe Ql (Pos bld culture) Not detected Not Detected [facility] Enterobacterales DNA Not detected Not Detected [facility] Enterococcus faecalis DNA Not detected Not Detected [facility] Enterococcus faecium DNA Not detected Not Detected [facility] H. influenzae DNA CARLTON+non-probe Ql (Pos bld culture) Not detected Not Detected [facility] Interpretation and review of laboratory results Abnormal [facility] K. oxytoca DNA CARLTON+non-probe Ql (Pos bld culture) Not detected Not Detected [facility] Klebsiella aerogenes DNA Not detected Not Detected [facility] Klebsiella pneumoniae group DNA Not detected Not Detected [facility] L. monocytogenes DNA CARLTON+non-probe Ql (Pos bld culture) Not detected Not Detected [facility] N. meningitidis DNA CARLTON+non-probe Ql (Pos bld culture) Not detected Not Detected [facility] P. aeruginosa DNA CARLTON+non-probe Ql (Pos bld culture) Not detected Not Detected [facility] Proteus sp DNA CARLTON+non-probe Ql (Pos bld culture) Not detected Not Detected [facility] S. agalactiae DNA CARLTON+non-probe Ql (Pos bld culture) Not detected Not Detected [facility] S. aureus DNA CARLTON+non-probe Ql (Pos bld culture) Not detected Not Detected [facility] S. marcescens DNA CARLTON+non-probe Ql (Pos bld culture) Not detected Not Detected [facility] S. pneumoniae DNA CARLTON+non-probe Ql (Pos bld culture) Not detected Not Detected [facility] S. pyogenes DNA CARLTON+non-probe Ql (Pos bld culture) Not detected Not Detected [facility] Salmonella species DNA Not detected Not Detecte d [facility] Staphylococcus epidermidis DNA Not detected Not Detected [facility] Staphylococcus lugdunensis DNA Not detected Not Detected [facility] Staphylococcus sp DNA CARLTON+non-probe Ql (Pos bld culture) Detected Abnormal Not Detected [facility] Stenotrophomonas maltophilia DNA Not detected Not Detected [facility] Streptococcus sp DNA CARLTON+non-probe Ql (Pos bld culture) Not detected Not Detected [facility] CBC,PLATELETSon 12-03-2023 Hematocrit (Bld) [Volume fraction] 34.1 % Low 34.9-44.3 [facility] Comment on above: Performed By: #### H EMOGC #### [facility] (DEFAULT) [address] [place] [address] 35057 Hemoglobin (Bld) [Mass/Vol] 11.1 g/dL Low 11.4-15.2 [facility] Comment on above: Performed By: #### H EMOGC #### [facility] (DEFAULT) [address] [place] [address] 57147 MCV (RBC) [Entitic vol] 95.5 fL Normal 79.6-97.7 [facility] Comment on above: Performed By: #### H EMOGC #### [facility] (DEFAULT) [address] [address] Mean Cell Hgb 31.1 pg Normal 25.9-33.9 [facility] Comment on above: Performed By: #### H EMOGC #### [facility] (DEFAULT) [address] [address] Mean Cell Hgb Conc 32.6 g/dL Normal 31.4-35.9 [facility] Comment on above: Performed By: #### H EMOGC #### [facility] (DEFAULT) [address] [place] [address] 28269 Platelet mean volume (Bld) [Entitic vol] 10.9 fL Normal 8.5-12.2 [facility] Comment on above: Performed By: #### H EMOGC #### [facility] (DEFAULT) [address] [place] [address] 78336 Platelets (Bld) [#/Vol] 255 10*3/uL Normal 150-393 [facility] Comment on above: Performed By: #### H EMOGC #### [facility] (DEFAULT) [address] [place] [address] 42354 RBC (Bld) [#/Vol] 3.57 10*6/uL Low 3.91-5.04 [facility] Comment on above: Performed By: #### H EMOGC #### [facility] (DEFAULT) [address] [place] [address] 31861 RBC Distribution 13.1 % Normal 10.8-14.9 [facility] Comment on above: Performed By: #### H EMO #### [facility] (DEFAULT) [address] [place] [address] 44656 WBC (Bld) [#/Vol] 16.35 10*3/uL High 3.99-11.19 [facility] Comment on above: Performed By: #### H EMO #### [facility] (DEFAULT) [address] [place] [address] 45964 CHEM 7 (LYTES,BUN,CREA,GLUC) on 12-03-2023 Anion gap [Moles/Vol] 12 mmol/L Normal 7-17 [facility] Comment on above: Performed By: #### I CA #### [facility] (DEFAULT) [address] [place] [address] 67237 Chloride [Moles/Vol] 112 mmol/L High 98-108 [facility] Comment on above: Performed By: #### I CA #### [facility] (DEFAULT) [address] [place] [address] 03424 CO2 [Moles/Vol] 25 mmol/L Normal 21-31 [facility] Comment on above: Performed By: #### I CA #### [facility] (DEFAULT) [address] [place] [address] 71273 Creatinine [Mass/Vol] 0.51 mg/dL Normal 0.50-1.20 [facility] Comment on above: Performed By: #### I CA #### [facility] (DEFAULT) [address] [place] [address] 23273 eGFR, CKD-EPI, Female > Normal >=60 [facility] Comment on above: Result Comment: Repo rted eGFR is based on the CKD-EPI 2020 equation using creatinine, age, and sex. Performed By: #### I CA #### [facility] (DEFAULT) [address] [place] [address] 44941 Glucose [Mass/Vol] 155 mg/dL High 70-99 [facility] Comment on above: Performed By: #### I CA #### [facility] (DEFAULT) [address] [place] [address] 67327 Osmolality [Osmolality] 309 mosm/kg High 278-305 [facility] Comment on above: Performed By: #### I CA #### [facility] (DEFAULT) [address] [place] [address] 85325 Potassium [Moles/Vol] 3.9 mmol/L Normal 3.5-5.0 [facility] Comment on above: Performed By: #### I CA #### [facility] (DEFAULT) [address] [place] [address] 44949 Sodium [Moles/Vol] 145 mmol/L Normal 135-145 [facility] Comment on above: Performed By: #### I CA #### [facility] (DEFAULT) [address] [place] [address] 76968 Urea nitrogen [Mass/Vol] 24 mg/dL Normal 7-25 [facility] Comment on above: Performed By: #### I CA #### [facility] (DEFAULT) [address] [place] [address] 37229 Urea nitrogen/Creatinine [Mass ratio] 47 mg/mg Normal [facility] Comment on above: Performed By: #### I CA #### [facility] (DEFAULT) [address] [place] [address] 49584 CHEM 7 (LYTES,BUN,CREA,GLUC) Ordered By: Martinez Dumont on 12-03-2023 Anion gap [Moles/Vol] 12 mmol/L 7 - 17 mmol/L [facility] Chloride [Moles/Vol] 112 mmol/L High 98 - 10 8 mmol/L [facility] CO2 [Moles/Vol] 25 mmol/L 21 - 31 mmol/L [facility] Creatinine [Mass/Vol] 0.51 mg/dL 0.50 - 1.20 mg/dL [facility] eGFR, CKD-EPI, [facility] - PINF [facility] Glucose [Mass/Vol] 155 mg/dL High 70 - 99 mg/dL [facility] Interpretation and review of laboratory results Abnormal [facility] Osmolality Calc [Osmolality] 309 High [facility] Potassium [Moles/Vol] 3.9 mmol/L 3.5 - 5.0 mmol/L [facility] Sodium [Moles/Vol] 145 mmol/L 135 - 145 mmol/L [facility] Urea nitrogen [Mass/Vol] 24 mg/dL 7 - 25 mg/dL [facility] Urea nitrogen/Creatinine [Mass ratio] 47 mg[facility] WITHOUT CONTRASTon 0 12-03-2023 CT HEAD WITHOUT CONTRAST EXAM: CT HEAD WITHOUT CONTRAST, 12/03/2023 2:30 AM COMPARISON: CT head from December 01, 2023 CLINICAL INDICATIONS: 78 years Female Stroke, follow up; RELEVANT CLINICAL HISTORY: TECHNIQUE: A series of transaxial computerized tomographic images are obtained from base of skull to vertex without intravenous contrast. Axial whole-head and thin section posterior fossa slices are provided. Reformats: Sagittal and coronal. FINDINGS: Again seen are evolving infarcts in the right RUBY and MCA territories involving the right frontal, parietal temporal and occipital lobes, right insula, right basal ganglia and mass effect with sammg-fa-jpcm midline shift shift measuring 4 mm. Similar hematoma in the right basal ganglia region. No new large territory infarct is seen. Ventricles are unchanged without progressive hydrocephalus. Skull appears intact. Visualized orbits appear normal. Visualized paranasal sinuses are clear. 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 Mildly mass effect with leftward shift of 4 mm. Normal [facility] CT Head WO contraston 2023 RADIOLOGY RADIOLOGY [facility] Rad[facility]ative[facility] WO contrastOrdered B y: Bao Powers on 12-03-2023 [facility] Work Phone: EXTRA MICROon 12-03-2023 [facility] IONIZED CALCIUM, WHOLE BLOOD on 12-03-2023 ICA 4.61 mg/dL Normal 4.60-5.30 [facility] Comment on above: Performed By: #### I CA #### [facility] (DEFAULT) [address] [place] [address] 01353 IONIZED CALCIUM, WHOLE BLOOD Ordered By: Reymundo Chauhan on 12-03-2023 Calcium.ionized (Bld) [Moles/Vol] 4.61 mg/dL 4.60 - 5.30 mg/dL [facility] Interpretation and review of laboratory results Normal [facility] MAGNESIUMon 12-03-2023 Magnesium [Mass/Vol] 2.1 mg/dL Normal 1.6-2.6 [facility] Comment on above: Performed By: #### H EMO #### [facility] (DEFAULT) [address] [place] [address] 65433 Magnesium [Mass/Vol] 2.1 mg/dL 1.6 - 2 .6 mg/dL [facility] No Panel Informationon 12-03 Interpretation and review of laboratory results Normal [facility] PHOSPHATE, INORGANICon 12-03 Phosphorous 3.3 mg/dL Normal 2.2-4.6 [facility] Comment on above: Performed By: #### I CA #### [facility] (DEFAULT) [address] [place] [address] 31687 Phosphate [Mass/Vol] 3.3 mg/dL 2.2 - 4 .6 mg/dL [facility] SCREEN: MRSA/MSSAOrdered By: Bobbi Macdonald on 12-03-2023 Interpretation and review of laboratory results Normal [facility] Methicillin Resistant S. Aureus By Pcr Negative Negative [facility] Staphylococcus Aureus By Pcr Negative Negative [facility] SODIUMon 12-03-2023 Sodium [Moles/Vol] 145 mmol/L Normal 135-145 [facility] Comment on above: Order Comment: While on 3% Hypertonic Saline. Performed By: #### [facility] #### [facility] (DEFAULT) [facility].[address] [place] [address] 98460 Interpretation and review of laboratory results Normal [facility] Sodium [Moles/Vol] 145 mmol/L 135 - 145 mmol/L [facility] Sodium [Moles/Vol] 143 mmol/L Normal 135-145 [facility] Comment on above: Order Comment: While on 3% Hypertonic Saline. Performed By: #### [facility] #### [facility] (DEFAULT) [address] [place] [address] Interpretation and review of laboratory results Normal [facility] Sodium [Moles/Vol] 143 mmol/L 135 - 145 mmol/L [facility] Sodium [Moles/Vol] 145 mmol/L Normal 135-145 [facility] Comment on above: Order Comment: While on 3% Hypertonic Saline. Performed By: #### M [facility] #### [facility] (DEFAULT) [address] [place] [address] Interpretation and review of laboratory results Normal [facility] Sodium [Moles/Vol] 145 mmol/L 135 - 145 mmol/L [facility] BLOOD CULTUREon 12-02-2023 Bacteria identified Cx Nom (Unsp spec) Normal [facility] Comment on above: Order Comment: 2 Bot tles (1 Set - consists of 1 Aerobic bottle and 1 Anaerobic bottle) -1st Peripheral DrawFor syringe method draw:If able to obtain adequate sample (20 ml) inoculate anaerobic bottle firstIf inadequate sample obtained (less than 20 ml) inoculate aerobic bottle firstFor vacutainer method draw: Fill aerobic bottle first, then anaerobicResults may be compromised due to volume of BACT\\ALERT bottle below 8mLs. The optimal blood volume is 8-10 mls per aerobic/anaerobic blood culture bottle Result Comment: Grow Staphylococcus hominis The recovery of this organism(s) from a single blood culture most likely represents contamination during collection. Susceptibility testing will not be performed. Please evaluate carefully prior to initiation or continuation of microbial therapy. If further workup is needed, please contact the blood culture area at [phone] within 2 days. Performed By: #### [facility] #### [facility] (DEFAULT) [address] [address] Bacteria identified Cx Nom (Unsp spec) NO GROWTH DAY 5 OF 5 Normal [facility] Comment on above: Order Comment: 2 Bot tles (1 Set - consists of 1 Aerobic bottle and 1 Anaerobic bottle) -1st Peripheral DrawFor syringe method draw:If able to obtain adequate sample (20 ml) inoculate anaerobic bottle firstIf inadequate sample obtained (less than 20 ml) inoculate aerobic bottle firstFor vacutainer method draw: Fill aerobic bottle first, then anaerobic Performed By: #### H [facility] #### [facility] (DEFAULT) [address] [address] BLOOD CULTURE IDENTIFICATION PANELon 12-02-2023 Acinetobacter calcoaceticus-baumannii complex DNA Not detected Normal Not Detected [facility] Comment on above: Order Comment: 2 Bot tles (1 Set - consists of 1 Aerobic bottle and 1 Anaerobic bottle) -1st Peripheral DrawFor syringe method draw:If able to obtain adequate sample (20 ml) inoculate anaerobic bottle firstIf inadequate sample obtained (less than 20 ml) inoculate aerobic bottle firstFor vacutainer method draw: Fill aerobic bottle first, then anaerobicResults may be compromised due to volume of BACT\\ALERT bottle below 8mLs. The optimal blood volume is 8-10 mls per aerobic/anaerobic blood culture bottleThis test was performed using a multiplex nucleic acid test that detects and identifies multiple bacterial and yeast nucleic acids and select genetic determinants associated with antimicrobial resistance. Culture is necessary to confirm susceptibilities and identify organisms not detected by this test. A "Not Detected" result for a genetic marker of antimicrobial resistance does not indicate susceptibility to associated antimicrobial drugs or drug classes. Results should be used in conjunction with other clinical and laboratory findings. Performed By: #### H [facility] #### [facility] (DEFAULT) [address] [address] Bacteroides fragilis DNA Not detected Normal Not Detected [facility] Comment on above: Order Comment: 2 Bot tles (1 Set - consists of 1 Aerobic bottle and 1 Anaerobic bottle) -1st Peripheral DrawFor syringe method draw:If able to obtain adequate sample (20 ml) inoculate anaerobic bottle firstIf inadequate sample obtained (less than 20 ml) inoculate aerobic bottle firstFor vacutainer method draw: Fill aerobic bottle first, then anaerobicResults may be compromised due to volume of BACT\\ALERT bottle below 8mLs. The optimal blood volume is 8-10 mls per aerobic/anaerobic blood culture bottleThis test was performed using a multiplex nucleic acid test that detects and identifies multiple bacterial and yeast nucleic acids and select genetic determinants associated with antimicrobial resistance. Culture is necessary to confirm susceptibilities and identify organisms not detected by this test. A "Not Detected" result for a genetic marker of antimicrobial resistance does not indicate susceptibility to associated antimicrobial drugs or drug classes. Results should be used in conjunction with other clinical and laboratory findings. Performed By: #### [facility] #### [facility] (DEFAULT) [address] [place] [address] [id number] Daksha albicans DNA Not detected Normal Not Detected [facility] Comment on above: Order Comment: 2 Bot tles (1 Set - consists of 1 Aerobic bottle and 1 Anaerobic bottle) -1st Peripheral DrawFor syringe method draw:If able to obtain adequate sample (20 ml) inoculate anaerobic bottle firstIf inadequate sample obtained (less than 20 ml) inoculate aerobic bottle firstFor vacutainer method draw: Fill aerobic bottle first, then anaerobicResults may be compromised due to volume of BACT\\ALERT bottle below 8mLs. The optimal blood volume is 8-10 mls per aerobic/anaerobic blood culture bottleThis test was performed using a multiplex nucleic acid test that detects and identifies multiple bacterial and yeast nucleic acids and select genetic determinants associated with antimicrobial resistance. Culture is necessary to confirm susceptibilities and identify organisms not detected by this test. A "Not Detected" result for a genetic marker of antimicrobial resistance does not indicate susceptibility to associated antimicrobial drugs or drug classes. Results should be used in conjunction with other clinical and laboratory findings. Performed By: #### [facility] #### [facility] (DEFAULT) [address] [place] [id number] Daksha auris DNA Not detected Normal Not Detected [facility] Comment on above: Order Comment: 2 Bot tles (1 Set - consists of 1 Aerobic bottle and 1 Anaerobic bottle) -1st Peripheral DrawFor syringe method draw:If able to obtain adequate sample (20 ml) inoculate anaerobic bottle firstIf inadequate sample obtained (less than 20 ml) inoculate aerobic bottle firstFor vacutainer method draw: Fill aerobic bottle first, then anaerobicResults may be compromised due to volume of BACT\\ALERT bottle below 8mLs. The optimal blood volume is 8-10 mls per aerobic/anaerobic blood culture bottleThis test was performed using a multiplex nucleic acid test that detects and identifies multiple bacterial and yeast nucleic acids and select genetic determinants associated with antimicrobial resistance. Culture is necessary to confirm susceptibilities and identify organisms not detected by this test. A "Not Detected" result for a genetic marker of antimicrobial resistance does not indicate susceptibility to associated antimicrobial drugs or drug classes. Results should be used in conjunction with other clinical and laboratory findings. Performed By: #### [facility] #### [facility] (DEFAULT) [address] [place] [phone] Daksha glabrata DNA Not detected Normal Not Detected [facility] Comment on above: Order Comment: 2 Bot tles (1 Set - consists of 1 Aerobic bottle and 1 Anaerobic bottle) -1st Peripheral DrawFor syringe method draw:If able to obtain adequate sample (20 ml) inoculate anaerobic bottle firstIf inadequate sample obtained (less than 20 ml) inoculate aerobic bottle firstFor vacutainer method draw: Fill aerobic bottle first, then anaerobicResults may be compromised due to volume of BACT\\ALERT bottle below 8mLs. The optimal blood volume is 8-10 mls per aerobic/anaerobic blood culture bottleThis test was performed using a multiplex nucleic acid test that detects and identifies multiple bacterial and yeast nucleic acids and select genetic determinants associated with antimicrobial resistance. Culture is necessary to confirm susceptibilities and identify organisms not detected by this test. A "Not Detected" result for a genetic marker of antimicrobial resistance does not indicate susceptibility to associated antimicrobial drugs or drug classes. Results should be used in conjunction with other clinical and laboratory findings. Performed By: #### [facility] #### [facility] (DEFAULT) [address] [id number] Daksha krusei DNA Not detected Normal Not Detected [facility] Comment on above: Order Comment: 2 Bot tles (1 Set - consists of 1 Aerobic bottle and 1 Anaerobic bottle) -1st Peripheral DrawFor syringe method draw:If able to obtain adequate sample (20 ml) inoculate anaerobic bottle firstIf inadequate sample obtained (less than 20 ml) inoculate aerobic bottle firstFor vacutainer method draw: Fill aerobic bottle first, then anaerobicResults may be compromised due to volume of BACT\\ALERT bottle below 8mLs. The optimal blood volume is 8-10 mls per aerobic/anaerobic blood culture bottleThis test was performed using a multiplex nucleic acid test that detects and identifies multiple bacterial and yeast nucleic acids and select genetic determinants associated with antimicrobial resistance. Culture is necessary to confirm susceptibilities and identify organisms not detected by this test. A "Not Detected" result for a genetic marker of antimicrobial resistance does not indicate susceptibility to associated antimicrobial drugs or drug classes. Results should be used in conjunction with other clinical and laboratory findings. Performed By: #### [facility] #### [facility] (DEFAULT) [address] [place] [id number] Daksha parapsilosis DNA Not detected Normal Not Detected [facility] Comment on above: Order Comment: 2 Bot tles (1 Set - consists of 1 Aerobic bottle and 1 Anaerobic bottle) -1st Peripheral DrawFor syringe method draw:If able to obtain adequate sample (20 ml) inoculate anaerobic bottle firstIf inadequate sample obtained (less than 20 ml) inoculate aerobic bottle firstFor vacutainer method draw: Fill aerobic bottle first, then anaerobicResults may be compromised due to volume of BACT\\ALERT bottle below 8mLs. The optimal blood volume is 8-10 mls per aerobic/anaerobic blood culture bottleThis test was performed using a multiplex nucleic acid test that detects and identifies multiple bacterial and yeast nucleic acids and select genetic determinants associated with antimicrobial resistance. Culture is necessary to confirm susceptibilities and identify organisms not detected by this test. A "Not Detected" result for a genetic marker of antimicrobial resistance does not indicate susceptibility to associated antimicrobial drugs or drug classes. Results should be used in conjunction with other clinical and laboratory findings. Performed By: #### [facility] #### [facility] (DEFAULT) [address] [place] [id number] Daksha tropicalis DNA Not detected Normal Not Detecte d [facility] Comment on above: Order Comment: 2 Bot tles (1 Set - consists of 1 Aerobic bottle and 1 Anaerobic bottle) -1st Peripheral DrawFor syringe method draw:If able to obtain adequate sample (20 ml) inoculate anaerobic bottle firstIf inadequate sample obtained (less than 20 ml) inoculate aerobic bottle firstFor vacutainer method draw: Fill aerobic bottle first, then anaerobicResults may be compromised due to volume of BACT\\ALERT bottle below 8mLs. The optimal blood volume is 8-10 mls per aerobic/anaerobic blood culture bottleThis test was performed using a multiplex nucleic acid test that detects and identifies multiple bacterial and yeast nucleic acids and select genetic determinants associated with antimicrobial resistance. Culture is necessary to confirm susceptibilities and identify organisms not detected by this test. A "Not Detected" result for a genetic marker of antimicrobial resistance does not indicate susceptibility to associated antimicrobial drugs or drug classes. Results should be used in conjunction with other clinical and laboratory findings. Performed By: #### [facility] #### [facility] (DEFAULT) [address] [place] [address] Cryptococcus ayse/neoformans DNA Not detected Normal Not Detected [facility] Comment on above: Order Comment: 2 Bot tles (1 Set - consists of 1 Aerobic bottle and 1 Anaerobic bottle) -1st Peripheral DrawFor syringe method draw:If able to obtain adequate sample (20 ml) inoculate anaerobic bottle firstIf inadequate sample obtained (less than 20 ml) inoculate aerobic bottle firstFor vacutainer method draw: Fill aerobic bottle first, then anaerobicResults may be compromised due to volume of BACT\\ALERT bottle below 8mLs. The optimal blood volume is 8-10 mls per aerobic/anaerobic blood culture bottleThis test was performed using a multiplex nucleic acid test that detects and identifies multiple bacterial and yeast nucleic acids and select genetic determinants associated with antimicrobial resistance. Culture is necessary to confirm susceptibilities and identify organisms not detected by this test. A "Not Detected" result for a genetic marker of antimicrobial resistance does not indicate susceptibility to associated antimicrobial drugs or drug classes. Results should be used in conjunction with other clinical and laboratory findings. Performed By: #### [facility] #### [facility] (DEFAULT) [address] [place] [phone] Enterobacter cloacae complex DNA Not detected Normal Not Detected [facility] Comment on above: Order Comment: 2 Bot tles (1 Set - consists of 1 Aerobic bottle and 1 Anaerobic bottle) -1st Peripheral DrawFor syringe method draw:If able to obtain adequate sample (20 ml) inoculate anaerobic bottle firstIf inadequate sample obtained (less than 20 ml) inoculate aerobic bottle firstFor vacutainer method draw: Fill aerobic bottle first, then anaerobicResults may be compromised due to volume of BACT\\ALERT bottle below 8mLs. The optimal blood volume is 8-10 mls per aerobic/anaerobic blood culture bottleThis test was performed using a multiplex nucleic acid test that detects and identifies multiple bacterial and yeast nucleic acids and select genetic determinants associated with antimicrobial resistance. Culture is necessary to confirm susceptibilities and identify organisms not detected by this test. A "Not Detected" result for a genetic marker of antimicrobial resistance does not indicate susceptibility to associated antimicrobial drugs or drug classes. Results should be used in conjunction with other clinical and laboratory findings. Performed By: #### [facility] #### [facility] (DEFAULT) [address] [place] [id number] Enterobacterales DNA Not detected Normal Not Detected [facility] Comment on above: Order Comment: 2 Bot tles (1 Set - consists of 1 Aerobic bottle and 1 Anaerobic bottle) -1st Peripheral DrawFor syringe method draw:If able to obtain adequate sample (20 ml) inoculate anaerobic bottle firstIf inadequate sample obtained (less than 20 ml) inoculate aerobic bottle firstFor vacutainer method draw: Fill aerobic bottle first, then anaerobicResults may be compromised due to volume of BACT\\ALERT bottle below 8mLs. The optimal blood volume is 8-10 mls per aerobic/anaerobic blood culture bottleThis test was performed using a multiplex nucleic acid test that detects and identifies multiple bacterial and yeast nucleic acids and select genetic determinants associated with antimicrobial resistance. Culture is necessary to confirm susceptibilities and identify organisms not detected by this test. A "Not Detected" result for a genetic marker of antimicrobial resistance does not indicate susceptibility to associated antimicrobial drugs or drug classes. Results should be used in conjunction with other clinical and laboratory findings. Performed By: #### [facility] #### [facility] (DEFAULT) [address] [place] [phone] Enterococcus faecalis DNA Not detected Normal Not Detected [facility] Comment on above: Order Comment: 2 Bot tles (1 Set - consists of 1 Aerobic bottle and 1 Anaerobic bottle) -1st Peripheral DrawFor syringe method draw:If able to obtain adequate sample (20 ml) inoculate anaerobic bottle firstIf inadequate sample obtained (less than 20 ml) inoculate aerobic bottle firstFor vacutainer method draw: Fill aerobic bottle first, then anaerobicResults may be compromised due to volume of BACT\\ALERT bottle below 8mLs. The optimal blood volume is 8-10 mls per aerobic/anaerobic blood culture bottleThis test was performed using a multiplex nucleic acid test that detects and identifies multiple bacterial and yeast nucleic acids and select genetic determinants associated with antimicrobial resistance. Culture is necessary to confirm susceptibilities and identify organisms not detected by this test. A "Not Detected" result for a genetic marker of antimicrobial resistance does not indicate susceptibility to associated antimicrobial drugs or drug classes. Results should be used in conjunction with other clinical and laboratory findings. Performed By: #### [facility] #### [facility] (DEFAULT) [address] [id number] Enterococcus faecium DNA Not detected Normal Not Detected [facility] Comment on above: Order Comment: 2 Bot tles (1 Set - consists of 1 Aerobic bottle and 1 Anaerobic bottle) -1st Peripheral DrawFor syringe method draw:If able to obtain adequate sample (20 ml) inoculate anaerobic bottle firstIf inadequate sample obtained (less than 20 ml) inoculate aerobic bottle firstFor vacutainer method draw: Fill aerobic bottle first, then anaerobicResults may be compromised due to volume of BACT\\ALERT bottle below 8mLs. The optimal blood volume is 8-10 mls per aerobic/anaerobic blood culture bottleThis test was performed using a multiplex nucleic acid test that detects and identifies multiple bacterial and yeast nucleic acids and select genetic determinants associated with antimicrobial resistance. Culture is necessary to confirm susceptibilities and identify organisms not detected by this test. A "Not Detected" result for a genetic marker of antimicrobial resistance does not indicate susceptibility to associated antimicrobial drugs or drug classes. Results should be used in conjunction with other clinical and laboratory findings. Performed By: #### [facility] #### [facility] (DEFAULT) [address] [id number] Escherichia coli DNA Not detected Normal Not Detected [facility] Comment on above: Order Comment: 2 Bot tles (1 Set - consists of 1 Aerobic bottle and 1 Anaerobic bottle) -1st Peripheral DrawFor syringe method draw:If able to obtain adequate sample (20 ml) inoculate anaerobic bottle firstIf inadequate sample obtained (less than 20 ml) inoculate aerobic bottle firstFor vacutainer method draw: Fill aerobic bottle first, then anaerobicResults may be compromised due to volume of BACT\\ALERT bottle below 8mLs. The optimal blood volume is 8-10 mls per aerobic/anaerobic blood culture bottleThis test was performed using a multiplex nucleic acid test that detects and identifies multiple bacterial and yeast nucleic acids and select genetic determinants associated with antimicrobial resistance. Culture is necessary to confirm susceptibilities and identify organisms not detected by this test. A "Not Detected" result for a genetic marker of antimicrobial resistance does not indicate susceptibility to associated antimicrobial drugs or drug classes. Results should be used in conjunction with other clinical and laboratory findings. Performed By: #### [facility] #### [facility] (DEFAULT) [address] [place] [address] [phone] Haemophilus influenzae DNA Not detected Normal Not Detected [facility] Comment on above: Order Comment: 2 Bot tles (1 Set - consists of 1 Aerobic bottle and 1 Anaerobic bottle) -1st Peripheral DrawFor syringe method draw:If able to obtain adequate sample (20 ml) inoculate anaerobic bottle firstIf inadequate sample obtained (less than 20 ml) inoculate aerobic bottle firstFor vacutainer method draw: Fill aerobic bottle first, then anaerobicResults may be compromised due to volume of BACT\\ALERT bottle below 8mLs. The optimal blood volume is 8-10 mls per aerobic/anaerobic blood culture bottleThis test was performed using a multiplex nucleic acid test that detects and identifies multiple bacterial and yeast nucleic acids and select genetic determinants associated with antimicrobial resistance. Culture is necessary to confirm susceptibilities and identify organisms not detected by this test. A "Not Detected" result for a genetic marker of antimicrobial resistance does not indicate susceptibility to associated antimicrobial drugs or drug classes. Results should be used in conjunction with other clinical and laboratory findings. Performed By: #### [facility] #### [facility] (DEFAULT) [address] [place] [id number] Klebsiella aerogenes DNA Not detected Normal Not Detected [facility] Comment on above: Order Comment: 2 Bot tles (1 Set - consists of 1 Aerobic bottle and 1 Anaerobic bottle) -1st Peripheral DrawFor syringe method draw:If able to obtain adequate sample (20 ml) inoculate anaerobic bottle firstIf inadequate sample obtained (less than 20 ml) inoculate aerobic bottle firstFor vacutainer method draw: Fill aerobic bottle first, then anaerobicResults may be compromised due to volume of BACT\\ALERT bottle below 8mLs. The optimal blood volume is 8-10 mls per aerobic/anaerobic blood culture bottleThis test was performed using a multiplex nucleic acid test that detects and identifies multiple bacterial and yeast nucleic acids and select genetic determinants associated with antimicrobial resistance. Culture is necessary to confirm susceptibilities and identify organisms not detected by this test. A "Not Detected" result for a genetic marker of antimicrobial resistance does not indicate susceptibility to associated antimicrobial drugs or drug classes. Results should be used in conjunction with other clinical and laboratory findings. Performed By: #### [facility] #### [facility] (DEFAULT) [address] [place] [id number] Klebsiella oxytoca DNA Not detected Normal Not Detecte d [facility] Comment on above: Order Comment: 2 Bot tles (1 Set - consists of 1 Aerobic bottle and 1 Anaerobic bottle) -1st Peripheral DrawFor syringe method draw:If able to obtain adequate sample (20 ml) inoculate anaerobic bottle firstIf inadequate sample obtained (less than 20 ml) inoculate aerobic bottle firstFor vacutainer method draw: Fill aerobic bottle first, then anaerobicResults may be compromised due to volume of BACT\\ALERT bottle below 8mLs. The optimal blood volume is 8-10 mls per aerobic/anaerobic blood culture bottleThis test was performed using a multiplex nucleic acid test that detects and identifies multiple bacterial and yeast nucleic acids and select genetic determinants associated with antimicrobial resistance. Culture is necessary to confirm susceptibilities and identify organisms not detected by this test. A "Not Detected" result for a genetic marker of antimicrobial resistance does not indicate susceptibility to associated antimicrobial drugs or drug classes. Results should be used in conjunction with other clinical and laboratory findings. Performed By: #### [facility] #### [facility] [address] [place] [phone] Klebsiella pneumoniae group DNA Not detected Normal Not Detected [facility] Comment on above: Order Comment: 2 Bot tles (1 Set - consists of 1 Aerobic bottle and 1 Anaerobic bottle) -1st Peripheral DrawFor syringe method draw:If able to obtain adequate sample (20 ml) inoculate anaerobic bottle firstIf inadequate sample obtained (less than 20 ml) inoculate aerobic bottle firstFor vacutainer method draw: Fill aerobic bottle first, then anaerobicResults may be compromised due to volume of BACT\\ALERT bottle below 8mLs. The optimal blood volume is 8-10 mls per aerobic/anaerobic blood culture bottleThis test was performed using a multiplex nucleic acid test that detects and identifies multiple bacterial and yeast nucleic acids and select genetic determinants associated with antimicrobial resistance. Culture is necessary to confirm susceptibilities and identify organisms not detected by this test. A "Not Detected" result for a genetic marker of antimicrobial resistance does not indicate susceptibility to associated antimicrobial drugs or drug classes. Results should be used in conjunction with other clinical and laboratory findings. Performed By: #### [facility] #### [facility] (DEFAULT) [address] [place] [id number] Listeria monocytogenes DNA Not detected Normal Not Detected [facility] Comment on above: Order Comment: 2 Bot tles (1 Set - consists of 1 Aerobic bottle and 1 Anaerobic bottle) -1st Peripheral DrawFor syringe method draw:If able to obtain adequate sample (20 ml) inoculate anaerobic bottle firstIf inadequate sample obtained (less than 20 ml) inoculate aerobic bottle firstFor vacutainer method draw: Fill aerobic bottle first, then anaerobicResults may be compromised due to volume of BACT\\ALERT bottle below 8mLs. The optimal blood volume is 8-10 mls per aerobic/anaerobic blood culture bottleThis test was performed using a multiplex nucleic acid test that detects and identifies multiple bacterial and yeast nucleic acids and select genetic determinants associated with antimicrobial resistance. Culture is necessary to confirm susceptibilities and identify organisms not detected by this test. A "Not Detected" result for a genetic marker of antimicrobial resistance does not indicate susceptibility to associated antimicrobial drugs or drug classes. Results should be used in conjunction with other clinical and laboratory findings. Performed By: #### [facility] #### [facility] (DEFAULT) [address] [place] [phone] Neisseria meningitidis DNA Not detected Normal Not Detected [facility] Comment on above: Order Comment: 2 Bot tles (1 Set - consists of 1 Aerobic bottle and 1 Anaerobic bottle) -1st Peripheral DrawFor syringe method draw:If able to obtain adequate sample (20 ml) inoculate anaerobic bottle firstIf inadequate sample obtained (less than 20 ml) inoculate aerobic bottle firstFor vacutainer method draw: Fill aerobic bottle first, then anaerobicResults may be compromised due to volume of BACT\\ALERT bottle below 8mLs. The optimal blood volume is 8-10 mls per aerobic/anaerobic blood culture bottleThis test was performed using a multiplex nucleic acid test that detects and identifies multiple bacterial and yeast nucleic acids and select genetic determinants associated with antimicrobial resistance. Culture is necessary to confirm susceptibilities and identify organisms not detected by this test. A "Not Detected" result for a genetic marker of antimicrobial resistance does not indicate susceptibility to associated antimicrobial drugs or drug classes. Results should be used in conjunction with other clinical and laboratory findings. Performed By: #### [facility] #### [facility] (DEFAULT) [address] [place] [address] [id number] Proteus species DNA Not detected Normal Not Detected [facility] Comment on above: Order Comment: 2 Bot tles (1 Set - consists of 1 Aerobic bottle and 1 Anaerobic bottle) -1st Peripheral DrawFor syringe method draw:If able to obtain adequate sample (20 ml) inoculate anaerobic bottle firstIf inadequate sample obtained (less than 20 ml) inoculate aerobic bottle firstFor vacutainer method draw: Fill aerobic bottle first, then anaerobicResults may be compromised due to volume of BACT\\ALERT bottle below 8mLs. The optimal blood volume is 8-10 mls per aerobic/anaerobic blood culture bottleThis test was performed using a multiplex nucleic acid test that detects and identifies multiple bacterial and yeast nucleic acids and select genetic determinants associated with antimicrobial resistance. Culture is necessary to confirm susceptibilities and identify organisms not detected by this test. A "Not Detected" result for a genetic marker of antimicrobial resistance does not indicate susceptibility to associated antimicrobial drugs or drug classes. Results should be used in conjunction with other clinical and laboratory findings. Performed By: #### [facility] #### [facility] (DEFAULT) [address] [place] [address] 12556 Pseudomonas aeruginosa DNA Not detected Normal Not Detected [facility] Comment on above: Order Comment: 2 Bot tles (1 Set - consists of 1 Aerobic bottle and 1 Anaerobic bottle) -1st Peripheral DrawFor syringe method draw:If able to obtain adequate sample (20 ml) inoculate anaerobic bottle firstIf inadequate sample obtained (less than 20 ml) inoculate aerobic bottle firstFor vacutainer method draw: Fill aerobic bottle first, then anaerobicResults may be compromised due to volume of BACT\\ALERT bottle below 8mLs. The optimal blood volume is 8-10 mls per aerobic/anaerobic blood culture bottleThis test was performed using a multiplex nucleic acid test that detects and identifies multiple bacterial and yeast nucleic acids and select genetic determinants associated with antimicrobial resistance. Culture is necessary to confirm susceptibilities and identify organisms not detected by this test. A "Not Detected" result for a genetic marker of antimicrobial resistance does not indicate susceptibility to associated antimicrobial drugs or drug classes. Results should be used in conjunction with other clinical and laboratory findings. Performed By: #### [facility] #### [facility] (DEFAULT) [address] [place] [address] 81007 Salmonella species DNA Not detected Normal Not Detecte d [facility] Comment on above: Order Comment: 2 Bot tles (1 Set - consists of 1 Aerobic bottle and 1 Anaerobic bottle) -1st Peripheral DrawFor syringe method draw:If able to obtain adequate sample (20 ml) inoculate anaerobic bottle firstIf inadequate sample obtained (less than 20 ml) inoculate aerobic bottle firstFor vacutainer method draw: Fill aerobic bottle first, then anaerobicResults may be compromised due to volume of BACT\\ALERT bottle below 8mLs. The optimal blood volume is 8-10 mls per aerobic/anaerobic blood culture bottleThis test was performed using a multiplex nucleic acid test that detects and identifies multiple bacterial and yeast nucleic acids and select genetic determinants associated with antimicrobial resistance. Culture is necessary to confirm susceptibilities and identify organisms not detected by this test. A "Not Detected" result for a genetic marker of antimicrobial resistance does not indicate susceptibility to associated antimicrobial drugs or drug classes. Results should be used in conjunction with other clinical and laboratory findings. Performed By: #### [facility] #### [facility] (DEFAULT) [address] [place] [address] 06294 Serratia marcescens DNA Not detected Normal Not Detect ed [facility] Comment on above: Order Comment: 2 Bot tles (1 Set - consists of 1 Aerobic bottle and 1 Anaerobic bottle) -1st Peripheral DrawFor syringe method draw:If able to obtain adequate sample (20 ml) inoculate anaerobic bottle firstIf inadequate sample obtained (less than 20 ml) inoculate aerobic bottle firstFor vacutainer method draw: Fill aerobic bottle first, then anaerobicResults may be compromised due to volume of BACT\\ALERT bottle below 8mLs. The optimal blood volume is 8-10 mls per aerobic/anaerobic blood culture bottleThis test was performed using a multiplex nucleic acid test that detects and identifies multiple bacterial and yeast nucleic acids and select genetic determinants associated with antimicrobial resistance. Culture is necessary to confirm susceptibilities and identify organisms not detected by this test. A "Not Detected" result for a genetic marker of antimicrobial resistance does not indicate susceptibility to associated antimicrobial drugs or drug classes. Results should be used in conjunction with other clinical and laboratory findings. Performed By: #### [facility] #### [facility] (DEFAULT) [address] [place] [address] 42045 Staphylococcus aureus DNA Not detected Normal Not Detected [facility] Comment on above: Order Comment: 2 Bot tles (1 Set - consists of 1 Aerobic bottle and 1 Anaerobic bottle) -1st Peripheral DrawFor syringe method draw:If able to obtain adequate sample (20 ml) inoculate anaerobic bottle firstIf inadequate sample obtained (less than 20 ml) inoculate aerobic bottle firstFor vacutainer method draw: Fill aerobic bottle first, then anaerobicResults may be compromised due to volume of BACT\\ALERT bottle below 8mLs. The optimal blood volume is 8-10 mls per aerobic/anaerobic blood culture bottleThis test was performed using a multiplex nucleic acid test that detects and identifies multiple bacterial and yeast nucleic acids and select genetic determinants associated with antimicrobial resistance. Culture is necessary to confirm susceptibilities and identify organisms not detected by this test. A "Not Detected" result for a genetic marker of antimicrobial resistance does not indicate susceptibility to associated antimicrobial drugs or drug classes. Results should be used in conjunction with other clinical and laboratory findings. Performed By: #### [facility] #### [facility] [address] [place] [address] 22018 Staphylococcus epidermidis DNA Not detected Normal Not Detected [facility] Comment on above: Order Comment: 2 Bot tles (1 Set - consists of 1 Aerobic bottle and 1 Anaerobic bottle) -1st Peripheral DrawFor syringe method draw:If able to obtain adequate sample (20 ml) inoculate anaerobic bottle firstIf inadequate sample obtained (less than 20 ml) inoculate aerobic bottle firstFor vacutainer method draw: Fill aerobic bottle first, then anaerobicResults may be compromised due to volume of BACT\\ALERT bottle below 8mLs. The optimal blood volume is 8-10 mls per aerobic/anaerobic blood culture bottleThis test was performed using a multiplex nucleic acid test that detects and identifies multiple bacterial and yeast nucleic acids and select genetic determinants associated with antimicrobial resistance. Culture is necessary to confirm susceptibilities and identify organisms not detected by this test. A "Not Detected" result for a genetic marker of antimicrobial resistance does not indicate susceptibility to associated antimicrobial drugs or drug classes. Results should be used in conjunction with other clinical and laboratory findings. Performed By: #### [facility] #### [facility] (DEFAULT) [address] [place] [address] 15201 Staphylococcus lugdunensis DNA Not detected Normal Not Detected [facility] Comment on above: Order Comment: 2 Bot tles (1 Set - consists of 1 Aerobic bottle and 1 Anaerobic bottle) -1st Peripheral DrawFor syringe method draw:If able to obtain adequate sample (20 ml) inoculate anaerobic bottle firstIf inadequate sample obtained (less than 20 ml) inoculate aerobic bottle firstFor vacutainer method draw: Fill aerobic bottle first, then anaerobicResults may be compromised due to volume of BACT\\ALERT bottle below 8mLs. The optimal blood volume is 8-10 mls per aerobic/anaerobic blood culture bottleThis test was performed using a multiplex nucleic acid test that detects and identifies multiple bacterial and yeast nucleic acids and select genetic determinants associated with antimicrobial resistance. Culture is necessary to confirm susceptibilities and identify organisms not detected by this test. A "Not Detected" result for a genetic marker of antimicrobial resistance does not indicate susceptibility to associated antimicrobial drugs or drug classes. Results should be used in conjunction with other clinical and laboratory findings. Performed By: #### [facility] #### [facility] (DEFAULT) [address] [place] [address] 05189 Staphylococcus species DNA Detected Abnormal Not Detected [facility] Comment on above: Order Comment: 2 Bot tles (1 Set - consists of 1 Aerobic bottle and 1 Anaerobic bottle) -1st Peripheral DrawFor syringe method draw:If able to obtain adequate sample (20 ml) inoculate anaerobic bottle firstIf inadequate sample obtained (less than 20 ml) inoculate aerobic bottle firstFor vacutainer method draw: Fill aerobic bottle first, then anaerobicResults may be compromised due to volume of BACT\\ALERT bottle below 8mLs. The optimal blood volume is 8-10 mls per aerobic/anaerobic blood culture bottleThis test was performed using a multiplex nucleic acid test that detects and identifies multiple bacterial and yeast nucleic acids and select genetic determinants associated with antimicrobial resistance. Culture is necessary to confirm susceptibilities and identify organisms not detected by this test. A "Not Detected" result for a genetic marker of antimicrobial resistance does not indicate susceptibility to associated antimicrobial drugs or drug classes. Results should be used in conjunction with other clinical and laboratory findings. Performed By: #### [facility] #### [facility] (DEFAULT) [address] [place] [address] 50409 Stenotrophomonas maltophilia DNA Not detected Normal Not Detected [facility] Comment on above: Order Comment: 2 Bot tles (1 Set - consists of 1 Aerobic bottle and 1 Anaerobic bottle) -1st Peripheral DrawFor syringe method draw:If able to obtain adequate sample (20 ml) inoculate anaerobic bottle firstIf inadequate sample obtained (less than 20 ml) inoculate aerobic bottle firstFor vacutainer method draw: Fill aerobic bottle first, then anaerobicResults may be compromised due to volume of BACT\\ALERT bottle below 8mLs. The optimal blood volume is 8-10 mls per aerobic/anaerobic blood culture bottleThis test was performed using a multiplex nucleic acid test that detects and identifies multiple bacterial and yeast nucleic acids and select genetic determinants associated with antimicrobial resistance. Culture is necessary to confirm susceptibilities and identify organisms not detected by this test. A "Not Detected" result for a genetic marker of antimicrobial resistance does not indicate susceptibility to associated antimicrobial drugs or drug classes. Results should be used in conjunction with other clinical and laboratory findings. Performed By: #### [facility] #### [facility] (DEFAULT) [address] [place] [address] 96177 Streptococcus agalactiae (Group B) DNA Not detected Normal Not Detected [facility] Comment on above: Order Comment: 2 Bot tles (1 Set - consists of 1 Aerobic bottle and 1 Anaerobic bottle) -1st Peripheral DrawFor syringe method draw:If able to obtain adequate sample (20 ml) inoculate anaerobic bottle firstIf inadequate sample obtained (less than 20 ml) inoculate aerobic bottle firstFor vacutainer method draw: Fill aerobic bottle first, then anaerobicResults may be compromised due to volume of BACT\\ALERT bottle below 8mLs. The optimal blood volume is 8-10 mls per aerobic/anaerobic blood culture bottleThis test was performed using a multiplex nucleic acid test that detects and identifies multiple bacterial and yeast nucleic acids and select genetic determinants associated with antimicrobial resistance. Culture is necessary to confirm susceptibilities and identify organisms not detected by this test. A "Not Detected" result for a genetic marker of antimicrobial resistance does not indicate susceptibility to associated antimicrobial drugs or drug classes. Results should be used in conjunction with other clinical and laboratory findings. Performed By: #### [facility] #### [facility] (DEFAULT) [address] [place] [address] [phone] Streptococcus pneumoniae DNA Not detected Normal Not Detected [facility] Comment on above: Order Comment: 2 Bot tles (1 Set - consists of 1 Aerobic bottle and 1 Anaerobic bottle) -1st Peripheral DrawFor syringe method draw:If able to obtain adequate sample (20 ml) inoculate anaerobic bottle firstIf inadequate sample obtained (less than 20 ml) inoculate aerobic bottle firstFor vacutainer method draw: Fill aerobic bottle first, then anaerobicResults may be compromised due to volume of BACT\\ALERT bottle below 8mLs. The optimal blood volume is 8-10 mls per aerobic/anaerobic blood culture bottleThis test was performed using a multiplex nucleic acid test that detects and identifies multiple bacterial and yeast nucleic acids and select genetic determinants associated with antimicrobial resistance. Culture is necessary to confirm susceptibilities and identify organisms not detected by this test. A "Not Detected" result for a genetic marker of antimicrobial resistance does not indicate susceptibility to associated antimicrobial drugs or drug classes. Results should be used in conjunction with other clinical and laboratory findings. Performed By: #### [facility] #### [facility] (DEFAULT) [address] [place] [address] 12764 Streptococcus pyogenes (Group A) DNA Not detected Normal Not Detected [facility] Comment on above: Order Comment: 2 Bot tles (1 Set - consists of 1 Aerobic bottle and 1 Anaerobic bottle) -1st Peripheral DrawFor syringe method draw:If able to obtain adequate sample (20 ml) inoculate anaerobic bottle firstIf inadequate sample obtained (less than 20 ml) inoculate aerobic bottle firstFor vacutainer method draw: Fill aerobic bottle first, then anaerobicResults may be compromised due to volume of BACT\\ALERT bottle below 8mLs. The optimal blood volume is 8-10 mls per aerobic/anaerobic blood culture bottleThis test was performed using a multiplex nucleic acid test that detects and identifies multiple bacterial and yeast nucleic acids and select genetic determinants associated with antimicrobial resistance. Culture is necessary to confirm susceptibilities and identify organisms not detected by this test. A "Not Detected" result for a genetic marker of antimicrobial resistance does not indicate susceptibility to associated antimicrobial drugs or drug classes. Results should be used in conjunction with other clinical and laboratory findings. Performed By: #### [facility] #### [facility] (DEFAULT) [address] [place] [address] 68853 Streptococcus species DNA Not detected Normal Not Detected [facility] Comment on above: Order Comment: 2 Bot tles (1 Set - consists of 1 Aerobic bottle and 1 Anaerobic bottle) -1st Peripheral DrawFor syringe method draw:If able to obtain adequate sample (20 ml) inoculate anaerobic bottle firstIf inadequate sample obtained (less than 20 ml) inoculate aerobic bottle firstFor vacutainer method draw: Fill aerobic bottle first, then anaerobicResults may be compromised due to volume of BACT\\ALERT bottle below 8mLs. The optimal blood volume is 8-10 mls per aerobic/anaerobic blood culture bottleThis test was performed using a multiplex nucleic acid test that detects and identifies multiple bacterial and yeast nucleic acids and select genetic determinants associated with antimicrobial resistance. Culture is necessary to confirm susceptibilities and identify organisms not detected by this test. A "Not Detected" result for a genetic marker of antimicrobial resistance does not indicate susceptibility to associated antimicrobial drugs or drug classes. Results should be used in conjunction with other clinical and laboratory findings. Performed By: #### [facility] #### [facility] (DEFAULT) [address] [place] [address] 39764 CBC,PLATELETSon 12-02-2023 Erythrocyte distribution width (RBC) [Ratio] 13.1 % 10.8 - 14.9 % [facility] Hematocrit (Bld) [Volume fraction] 34.1 % Low 34.9 - 44.3 % [facility] Hemoglobin (Bld) [Mass/Vol] 11.1 g/dL Low 11.4 - 15.2 g/dL [facility] Interpretation and review of laboratory results Abnormal [facility] MCH (RBC) [Entitic mass] 31.1 pg 25.9 - 33.9 pg [facility] MCHC (RBC) [Mass/Vol] 32.6 g/dL 31.4 - 35.9 g/dL [facility] MCV (RBC) [Entitic vol] 95.5 fL 79.6 - 97.7 fL [facility] Platelet mean volume (Bld) [Entitic vol] 10.9 fL 8.5 - 12.2 fL [facility] Platelets (Bld) [#/Vol] 255 10*3/uL 150 - 393 K/uL [facility] RBC (Bld) [#/Vol] 3.57 10*6/uL Low [facility] WBC (Bld) [#/Vol] 16.35 10*3/uL High 3.99 - 11 .19 K/uL [facility] Hematocrit (Bld) [Volume fraction] 34.1 % Low 34.9-44.3 [facility] Comment on above: Performed By: #### [facility] #### [facility] (DEFAULT) [address] [place] [address] Hemoglobin (Bld) [Mass/Vol] 11.1 g/dL Low 11.4-15.2 [facility] Comment on above: Performed By: #### [facility] #### [facility] (DEFAULT) [address] [place] [address] MCV (RBC) [Entitic vol] 94.2 fL Normal 79.6-97.7 [facility] Comment on above: Performed By: #### H EMOGC #### [facility] (DEFAULT) [address] [address] Mean Cell Hgb 30.7 pg Normal 25.9-33.9 [facility] Comment on above: Performed By: #### H EMOGC #### [facility] (DEFAULT) [address] [address] Mean Cell Hgb Conc 32.6 g/dL Normal 31.4-35.9 [facility] Comment on above: Performed By: #### H EMOGC #### [facility] (DEFAULT) [address] [address] Platelet mean volume (Bld) [Entitic vol] 11.4 fL Normal 8.5-12.2 [facility] Comment on above: Performed By: #### H EMOGC #### [facility] (DEFAULT) [address] [address] Platelets (Bld) [#/Vol] 248 10*3/uL Normal 150-393 [facility] Comment on above: Performed By: #### H EMOGC #### [facility] (DEFAULT) [address] [address] RBC (Bld) [#/Vol] 3.62 10*6/uL Low 3.91-5.04 [facility] Comment on above: Performed By: #### H EMOGC #### [facility] (DEFAULT) [address] [address] RBC Distribution 13.0 % Normal 10.8-14.9 [facility] Comment on above: Performed By: #### H EMOGC #### [facility] (DEFAULT) [address] [address] WBC (Bld) [#/Vol] 15.46 10*3/uL High 3.99-11.19 [facility] Comment on above: Performed By: #### H EMOGC #### [facility] (DEFAULT) [address] [place] [address]696 Erythrocyte distribution width (RBC) [Ratio] 13.0 % 10.8 - 14.9 % [facility] Hematocrit (Bld) [Volume fraction] 34.1 % Low 34.9 - 44.3 % [facility] Hemoglobin (Bld) [Mass/Vol] 11.1 g/dL Low 11.4 - 15.2 g/dL [facility] Interpretation and review of laboratory results Abnormal [facility] MCH (RBC) [Entitic mass] 30.7 pg 25.9 - 33.9 pg [facility] MCHC (RBC) [Mass/Vol] 32.6 g/dL 31.4 - 35.9 g/dL [facility] MCV (RBC) [Entitic vol] 94.2 fL 79.6 - 97.7 fL [facility] Platelet mean volume (Bld) [Entitic vol] 11.4 fL 8.5 - 12.2 fL [facility] Platelets (Bld) [#/Vol] 248 10*3/uL 150 - 393 K/uL [facility] RBC (Bld) [#/Vol] 3.62 10*6/uL Low [facility] WBC (Bld) [#/Vol] 15.46 10*3/uL High 3.99 - 11 .19 K/uL [facility] CHEM 7 (LYTES,BUN,CREA,GLUC) on 12-02-2023 Anion gap [Moles/Vol] 13 mmol/L Normal 7-17 [facility] Comment on above: Performed By: #### B LDCULT #### [facility] (DEFAULT) [address] [place] [address]243 Chloride [Moles/Vol] 106 mmol/L Normal 98-108 [facility] Comment on above: Performed By: #### B LDCULT #### [facility] (DEFAULT) [address] [place] [address] 73231 CO2 [Moles/Vol] 25 mmol/L Normal 21-31 [facility] Comment on above: Performed By: #### B LDCULT #### [facility] (DEFAULT) [address] [place] [address] 01416 Creatinine [Mass/Vol] 0.54 mg/dL Normal 0.50-1.20 [facility] Comment on above: Performed By: #### B LDCULT #### [facility] (DEFAULT) [address] [place] [address] 59256 eGFR, CKD-EPI, Female > Normal >=60 [facility] Comment on above: Result Comment: Repo rted eGFR is based on the CKD-EPI 2020 equation using creatinine, age, and sex. Performed By: #### B LDCULT #### [facility] (DEFAULT) [address] [place] [address] 02252 Glucose [Mass/Vol] 138 mg/dL High 70-99 [facility] Comment on above: Performed By: #### B LDCULT #### [facility] (DEFAULT) [address] [place] [address] 79163 Osmolality [Osmolality] 297 mosm/kg Normal 278-305 [facility] Comment on above: Performed By: #### B LDCULT #### [facility] (DEFAULT) [address] [place] [address] 58468 Potassium [Moles/Vol] 4.9 mmol/L Normal 3.5-5.0 [facility] Comment on above: Result Comment: Mode rate Hemolysis Performed By: #### B LDCULT #### [facility] (DEFAULT) [address] [place] [address]286 Sodium [Moles/Vol] 139 mmol/L Normal 135-145 [facility] Comment on above: Performed By: #### B LDCULT #### [facility] (DEFAULT) [address] [place] [address] 39330 Urea nitrogen [Mass/Vol] 19 mg/dL Normal 7-25 [facility] Comment on above: Performed By: #### B LDCULT #### [facility] (DEFAULT) [address] [place] [address] Urea nitrogen/Creatinine [Mass ratio] 35 mg/mg Normal [facility] Comment on above: Performed By: #### B LDCULT #### [facility] (DEFAULT) [address] [place] [address] CHEM 7 (LYTES,BUN,CREA,GLUC) Ordered By: Jin Graves on 12-02-2023 Anion gap [Moles/Vol] 13 mmol/L 7 - 17 mmol/L [facility] Chloride [Moles/Vol] 106 mmol/L 98 - 10 8 mmol/L [facility] CO2 [Moles/Vol] 25 mmol/L 21 - 31 mmol/L [facility] [facility] Creatinine [Mass/Vol] 0.54 mg/dL 0.50 - 1.20 mg/dL [facility] eGFR, CKD-EPI, Female - PINF [facility] Glucose [Mass/Vol] 138 mg/dL High 70 - 99 mg/dL [facility] Interpretation and review of laboratory results Abnormal [facility] Osmolality Calc [Osmolality] 297 [facility] Potassium [Moles/Vol] 4.9 mmol/L 3.5 - 5.0 mmol/L [facility] Sodium [Moles/Vol] 139 mmol/L 135 - 145 mmol/L [facility] Urea nitrogen [Mass/Vol] 19 mg/dL 7 - 25 mg/dL [facility] Urea nitrogen/Creatinine [Mass ratio] 35 mg/mg [facility] CT HEAD WITHOUT CONTRASTon 0 12-02-2023 CT HEAD WITHOUT CONTRAST EXAM: CT HEAD WITHOUT CONTRAST, 12/01/2023 10:22 PM COMPARISON: CT HEAD WITHOUT CONTRAST November 30, 2023, MRI BRAIN WITHOUT CONTRAST November 30, 2023 CLINICAL INDICATIONS: 78 years Female Stroke, follow up; RELEVANT CLINICAL HISTORY: TECHNIQUE: A series of transaxial computerized tomographic images are obtained from base of skull to vertex without intravenous contrast. Axial whole-head and thin section posterior fossa slices are provided. Reformats: Sagittal and coronal. FINDINGS: Again seen are evolving infarcts in the right RUBY and MCA territories involving the right frontal, parietal temporal and occipital lobes, right insula, right basal ganglia and internal/external progressive mass effect with [id number]-[id number] midline shift shift measuring 4 mm. Downward herniation. No new large territory infarct is seen. Ventricles are unchanged without progressive hydrocephalus. Skull appears intact. Visualized orbits appear normal. Visualized paranasal sinuses are clear. 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 Mildly progressed mass effect with leftward shift of 4 mm. Normal [facility] IONIZED CALCIUM, WHOLE BLOOD on 12-02-2023 ICA 4.51 mg/dL Low 4.60-5.30 [facility] Comment on above: Order Comment: If io nized calcium is less than or equal to 3.0 mg/dL, recheck ionized calcium 2 hours after replacement. Performed By: #### LUCIANO LA7 #### [facility] (DEFAULT) [address] [place] [address] ICA 4.03 mg/dL Low 4.60-5.30 [facility] Comment on above: Performed By: #### Iraida ALLEN CHM7 #### [facility] (DEFAULT) [address] [place] [address] IONIZED CALCIUM, WHOLE BLOOD Ordered By: Dina Amin on 12-02-2023 Calcium.ionized (Bld) [Moles/Vol] 4.51 mg/dL Low 4.60 - 5.30 mg/dL [facility] Interpretation and review of laboratory results Abnormal [facility] IONIZED CALCIUM, WHOLE BLOOD Ordered By: Jai Avery on 12-02-2023 Calcium.ionized (Bld) [Moles/Vol] 4.03 mg/dL Low 4.60 - 5.30 mg/dL [facility] Interpretation and review of laboratory results Abnormal [facility] MAGNESIUMon 12-02-2023 Magnesium [Mass/Vol] 1.9 mg/dL Normal 1.6-2.6 [facility] Comment on above: Result Comment: Mode rate Hemolysis Performed By: #### B LDCULT #### [facility] (DEFAULT) [address] [place] [address] Interpretation and review of laboratory results Normal [facility] Magnesium [Mass/Vol] 1.9 mg/dL 1.6 - 2 .6 mg/dL [facility] No Panel Informationon 12-02 [facility] PHOSPHATE, INORGANICon 12-02 Phosphorous 1.5 mg/dL Low 2.2-4.6 [facility] Comment on above: Result Comment: Mode rate Hemolysis Performed By: #### B LDCULT #### [facility] (DEFAULT) [address] [place] [address] Interpretation and review of laboratory results Abnormal [facility] Phosphate [Mass/Vol] 1.5 mg/dL Low 2.2 - 4 .6 mg/dL [facility] Portable XR Chest Viewson RADIOLOGY RADIOLOGY [facility] Radiology Study observation (narrative) [facility] Portable XR Chest ViewsOrder ed By: Keila Reed on 12-02-2023 [facility] Work Phone: SCREEN: MRSA/MSSAon 12-02-19 24 Methicillin Resistant S. Aureus By Pcr Negative Normal Negative [facility] Comment on above: Order Comment: Colle ct with an ESWAB - Anterior Nares for MRSA + MSSAThis test was performed using a real time PCR assay. Results should be interpreted in conjunction with other clinical and laboratory findings. A positive result does not necessarily indicate the presence of viable organism. This test should not be used as a test of cure. For E-swab specimens, this test was developed and its performance characteristics determined by the Clinical Microbiology Laboratory at [facility]. It has not been cleared or approved by the FDA.The laboratory is regulated under CLIA as qualified to perform high-complexity testing. This test is used for clinical purposes. It should not be regarded as investigational or for research. Performed By: #### [facility] #### [facility] (DEFAULT) [address] [address] Staphylococcus Aureus By Pcr Negative Normal Negative [facility] Comment on above: Order Comment: Colle ct with an ESWAB - Anterior Nares for MRSA + MSSAThis test was performed using a real time PCR assay. Results should be interpreted in conjunction with other clinical and laboratory findings. A positive result does not necessarily indicate the presence of viable organism. This test should not be used as a test of cure. For E-swab specimens, this test was developed and its performance characteristics determined by the Clinical Microbiology Laboratory at [facility]. It has not been cleared or approved by the FDA.The laboratory is regulated under CLIA as qualified to perform high-complexity testing. This test is used for clinical purposes. It should not be regarded as investigational or for research. Performed By: #### [facility] #### [facility] (DEFAULT) [address] [address] SODIUMon 12-02-2023 Sodium [Moles/Vol] 142 mmol/L Normal 135-145 [facility] Comment on above: Order Comment: While on 3% Hypertonic Saline. Performed By: #### M ALEJANDRO, CHM7 #### [facility] (DEFAULT) [address] [address] Interpretation and review of laboratory results Normal [facility] Sodium [Moles/Vol] 142 mmol/L 135 - 145 mmol/L [facility] URINALYSIS REFLEX TO CULTURE PERFORMABLEon 12-02-2023 Appearance (U) Clear Normal Clear [facility] Comment on above: Order Comment: For i ndwelling catheters, specimen collection is acceptable on catheter day 1 and 2 only. ? Performed By: #### U [id number] #### [facility] (DEFAULT) [address] [address] Bacteria ABSENT Normal ABSENT [facility] Comment on above: Order Comment: For i ndwelling catheters, specimen collection is acceptable on catheter day 1 and 2 only. ? Performed By: #### U [id number] #### [facility] (DEFAULT) [address] [place] [address] Blood Urine Negative Normal Negative [facility] Comment on above: Order Comment: For i ndwelling catheters, specimen collection is acceptable on catheter day 1 and 2 only. ? Performed By: #### U [id number] #### [facility] (DEFAULT) [address] [place] [address] Color (U) Yellow Normal Yellow [facility] Comment on above: Order Comment: For i ndwelling catheters, specimen collection is acceptable on catheter day 1 and 2 only. ? Performed By: #### U [id number] #### [facility] (DEFAULT) [address] [place] [address] Glucose Ql (U) Negative Normal Negative [facility] Comment on above: Order Comment: For i ndwelling catheters, specimen collection is acceptable on catheter day 1 and 2 only. ? Performed By: #### U [id number] #### [facility] (DEFAULT) [address] [place] [address] Ketones Ql (U) Negative Normal Negative [facility] Comment on above: Order Comment: For i ndwelling catheters, specimen collection is acceptable on catheter day 1 and 2 only. ? Performed By: #### U [id number] #### [facility] (DEFAULT) [address] [place] [address] Leukocyte esterase Test strip Ql (U) Negative Normal Negative [facility] Comment on above: Order Comment: For i ndwelling catheters, specimen collection is acceptable on catheter day 1 and 2 only. ? Performed By: #### U [id number] #### [facility] (DEFAULT) [address] [place] [address] Nitrites Urine Negative Normal Negative [facility] Comment on above: Order Comment: For i ndwelling catheters, specimen collection is acceptable on catheter day 1 and 2 only. ? Performed By: #### U [id number] #### [facility] (DEFAULT) [address] [address] pH (U) 5.0 [pH] Normal 5.0-7.0 [facility] Comment on above: Order Comment: For i ndwelling catheters, specimen collection is acceptable on catheter day 1 and 2 only. ? Performed By: #### U [id number] #### [facility] (DEFAULT) [address] [place] [address] Protein Urine Negative Normal Negative [facility] Comment on above: Order Comment: For i ndwelling catheters, specimen collection is acceptable on catheter day 1 and 2 only. ? Performed By: #### U [id number] #### [facility] (DEFAULT) [address] [address] RBC Urine 0-2 Normal 0-2 [facility] Comment on above: Order Comment: For i ndwelling catheters, specimen collection is acceptable on catheter day 1 and 2 only. ? Performed By: #### U [id number] #### [facility] (DEFAULT) [address] [address] Specific [place] Urine 1.038 High 1.001-1.035 [facility] Comment on above: Order Comment: For i ndwelling catheters, specimen collection is acceptable on catheter day 1 and 2 only. ? Performed By: #### U [id number] #### [facility] (DEFAULT) [address] [address] Squamous/Epithelial Cells 0-2/hpf Normal 0-2/hpf, 3-5/hpf = 1+ [facility] Comment on above: Order Comment: For i ndwelling catheters, specimen collection is acceptable on catheter day 1 and 2 only. ? Performed By: #### U [id number] #### [facility] (DEFAULT) [address] [address] Urobilinogen Urine 1.0 E.U./dL Normal 0.2 E.U/d L, 1.0 E.U/dL [facility] Comment on above: Order Comment: For i ndwelling catheters, specimen collection is acceptable on catheter day 1 and 2 only. ? Performed By: #### U [id number] #### [facility] (DEFAULT) [address] [place] [address] WBC Urine 6 - 10 Abnormal 0 - 5 [facility] Comment on above: Order Comment: For i ndwelling catheters, specimen collection is acceptable on catheter day 1 and 2 only. ? Performed By: #### U [id number] #### [facility] (DEFAULT) [address] [place] [address] Appearance (U) Clear Clear [facility] Bacteria LM Ql (Urine sed) ABSENT ABSENT [facility] Color (U) Yellow Yellow [facility] Epithelial cells.squamous LM Ql (Urine sed) 0-2/hpf 0-2/hpf, 3-5/hpf = 1+ [facility] Glucose Test strip (U) [Mass/Vol] Negative Negative [facility] Interpretation and review of laboratory results Abnormal [facility] Ketones (U) [Mass/Vol] Negative Negative [facility] Leukocyte esterase Test strip Ql (U) Negative Negative [facility] Nitrite Ql (U) Negative Negative [facility] pH (U) 5.0 [pH] 5.0 - 7.0 [facility] Protein (U) [Mass/Vol] Negative Negative [facility] RBC (U) [#/Vol] Negative Negative [facility] RBC LM.HPF (Urine sed) [#/Area] 0-2 [facility] Specific gravity (U) [Rel density] 1.038 High 1.001 - 1.035 [facility] Urobilinogen (U) [Mass/Vol] 1.0 E.U./dL 0.2 E.U/dL, 1.0 E.U/dL [facility] WBC LM.HPF (Urine sed) [#/Area] 6 - 10 Abnormal [facility] XR CHEST 1 VIEW PORTABLEon 0 12-02-2023 XR CHEST 1 VIEW PORTABLE EXAM: XR CHEST 1 VIEW PORTABLE, 12/02/2023 10:28 AM COMPARISON: 11/29/2023 CLINICAL INDICATIONS: infectious workup RELEVANT CLINICAL HISTORY: FINDINGS: (Adequate technique) Implanted Devices: New placement of feeding tube with its tip outside [id number]. Thorax: New bibasilar atelectasis. No other change. IMPRESSION: New bibasilar atelectasis status post placement of partially visualized feeding tube. Normal [facility] CBC,PLATELETSon 12-01-2023 Hematocrit (Bld) [Volume fraction] 35.1 % Normal 34.9-44.3 [facility] Comment on above: Performed By: #### H EMO #### [facility] (DEFAULT) [address] [address] Hemoglobin (Bld) [Mass/Vol] 11.2 g/dL Low 11.4-15.2 [facility] Comment on above: Performed By: #### H EMO #### [facility] (DEFAULT) [address] [address] MCV (RBC) [Entitic vol] 95.1 fL Normal 79.6-97.7 O [facility] Comment on above: Performed By: #### H EMO #### [facility] (DEFAULT) [address] [address] Mean Cell Hgb 30.4 pg Normal 25.9-33.9 [facility] Comment on above: Performed By: #### H EMO #### [facility] (DEFAULT) [address] [address] Mean Cell Hgb Conc 31.9 g/dL Normal 31.4-35.9 [facility] Comment on above: Performed By: #### H EMOGC #### [facility] (DEFAULT) [address] [address] Platelet mean volume (Bld) [Entitic vol] 10.5 fL Normal 8.5-12.2 [facility] Comment on above: Performed By: #### H EMOGC #### [facility] (DEFAULT) [address] [place] [address] Platelets (Bld) [#/Vol] 222 10*3/uL Normal 150-393 [facility] Comment on above: Performed By: #### H EMOGC #### [facility] (DEFAULT) [address] [place] [address] RBC (Bld) [#/Vol] 3.69 10*6/uL Low 3.91-5.04 [facility] Comment on above: Performed By: #### H EMOGC #### [facility] (DEFAULT) [address] [place] [address] RBC Distribution 12.7 % Normal 10.8-14.9 [facility] Comment on above: Performed By: #### H EMOGC #### [facility] (DEFAULT) [address] [place] [address] WBC (Bld) [#/Vol] 14.34 10*3/uL High 3.99-11.19 [facility] Comment on above: Performed By: #### H EMOGC #### [facility] (DEFAULT) [address] [place] [address] Erythrocyte distribution width (RBC) [Ratio] 12.7 % 10.8 - 14.9 % [facility] Hematocrit (Bld) [Volume fraction] 35.1 % 34.9 - 44.3 % [facility] Hemoglobin (Bld) [Mass/Vol] 11.2 g/dL Low 11.4 - 15.2 g/dL [facility] Interpretation and review of laboratory results Abnormal [facility] MCH (RBC) [Entitic mass] 30.4 pg 25.9 - 33.9 pg [facility] MCHC (RBC) [Mass/Vol] 31.9 g/dL 31.4 - 35.9 g/dL [facility] MCV (RBC) [Entitic vol] 95.1 fL 79.6 - 97.7 fL [facility] Platelet mean volume (Bld) [Entitic vol] 10.5 fL 8.5 - 12.2 fL [facility] Platelets (Bld) [#/Vol] 222 10*3/uL 150 - 393 K/uL [facility] RBC (Bld) [#/Vol] 3.69 10*6/uL Low [facility] WBC (Bld) [#/Vol] 14.34 10*3/uL High 3.99 - 11 .19 K/uL [facility] CHEM 7 (LYTES,BUN,CREA,GLUC) on 12-01-2023 Anion gap [Moles/Vol] 12 mmol/L Normal 7-17 [facility] Comment on above: Performed By: #### C HM7 #### [facility] (DEFAULT) [address] [place] [address] Chloride [Moles/Vol] 109 mmol/L High 98-108 [facility] Comment on above: Performed By: #### C HM7 #### [facility] (DEFAULT) [address] [place] [address] CO2 [Moles/Vol] 27 mmol/L Normal 21-31 [facility] Comment on above: Performed By: #### C HM7 #### [facility] (DEFAULT) [address] [place] [address] Creatinine [Mass/Vol] 0.65 mg/dL Normal 0.50-1.20 [facility] Comment on above: Performed By: #### C HM7 #### [facility] (DEFAULT) [address] [place] [address] GFR/1.73 sq M.predicted among non-blacks MDRD (S/P/Bld) [Vol rate/Area] 90 mL/min/{1.73_m2} Normal >=60 [facility] Comment on above: Result Comment: Repo rted eGFR is based on the CKD-EPI 2020 equation using creatinine, age, and sex. Performed By: #### C HM7 #### [facility] (DEFAULT) [address] [place] [address] Glucose [Mass/Vol] 119 mg/dL High 70-99 [facility] Comment on above: Performed By: #### C HM7 #### [facility] (DEFAULT) [address] [place] [address] Osmolality [Osmolality] 303 mosm/kg Normal 278-305 [facility] Comment on above: Performed By: #### C HM7 #### [facility] (DEFAULT) [address] [place] [address] Potassium [Moles/Vol] 3.9 mmol/L Normal 3.5-5.0 [facility] Comment on above: Performed By: #### C HM7 #### [facility] (DEFAULT) [address] [place] [address] Sodium [Moles/Vol] 144 mmol/L Normal 135-145 [facility] Comment on above: Performed By: #### C HM7 #### [facility] (DEFAULT) [address] [place] [address] Urea nitrogen [Mass/Vol] 18 mg/dL Normal 7-25 [facility] Comment on above: Performed By: #### C HM7 #### [facility] (DEFAULT) [address] [place] [address] Urea nitrogen/Creatinine [Mass ratio] 28 mg/mg Normal [facility] Comment on above: Performed By: #### C HM7 #### [facility] (DEFAULT) [address] [place] [address] Anion gap [Moles/Vol] 12 mmol/L 7 - 17 mmol/L [facility] Chloride [Moles/Vol] 109 mmol/L High 98 - 10 8 mmol/L [facility] CO2 [Moles/Vol] 27 mmol/L 21 - 31 mmol/L [facility] Creatinine [Mass/Vol] 0.65 mg/dL 0.50 - 1.20 mg/dL [facility] eGFR, CKD-EPI, Female 90 - PINF [facility] Glucose [Mass/Vol] 119 mg/dL High 70 - 99 mg/dL [facility] Interpretation and review of laboratory results Abnormal [facility] Osmolality Calc [Osmolality] 303 [facility] Potassium [Moles/Vol] 3.9 mmol/L 3.5 - 5.0 mmol/L [facility] Sodium [Moles/Vol] 144 mmol/L 135 - 145 mmol/L [facility] Urea nitrogen [Mass/Vol] 18 mg/dL 7 - 25 mg/dL [facility] Urea nitrogen/Creatinine [Mass ratio] 28 mg/mg [facility] CT Head WO contraston 2023 RADIOLOGY RADIOLOGY [facility] Radiology Study observation (narrative) [facility] EXTRA MICROon 12-01-2023 [facility] MRI BRAIN WITHOUT CONTRASTon 12-01-2023 MRI BRAIN WITHOUT CONTRAST EXAM: MRI BRAIN WITHOUT CONTRAST, 11/30/2023 22:17 PM COMPARISON: CT head November 30, 2023 CLINICAL INDICATIONS: 78 years Female Stroke Workup; RELEVANT CLINICAL HISTORY: TECHNIQUE: A series of multisequence, multiplanar images of the brain are obtained without intravenous contrast. Study was performed at 1.5 Ailyn. FINDINGS: There is a large acute infarct in the right cerebral hemisphere involving the right RUBY and MCA territory infarct involving the medial right frontal lobe as well as the right frontal, parietal, temporal and occipital lobes, a right insula, subinsular region, right basal ganglia, right external and internal capsules. There is a hemorrhagic transformation within the right basal ganglia with more focal hematoma as seen on CT. There is mass effect with partial effacement of the right lateral ventricle and mild right to left midline shift measuring 1 to 2 mm. Small volume intraventricular hemorrhage within the occipital horns. Elsewhere the brain parenchyma there are scattered T2/FLAIR hyperintensities in the periventricular, subcortical white matter, likely sequela of chronic small vessel ischemic disease. 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 No extracerebral collection. Sellar and parasellar structures are unremarkable. Posterior fossa is unremarkable. No air-fluid levels in the paranasal sinuses. IMPRESSION: Acute infarcts in the right RUBY and MCA territories with hemorrhagic transformation in the right basal ganglia and small volume intraventricular hemorrhage. Mass effect with mild leftward shift of 2 mm. Normal [facility] No Panel Informationon 12-01 [facility] XR ABDOMEN 1 VIEWon 12-01-19 24 XR ABDOMEN 1 VIEW EXAM: XR ABDOMEN 1 VIEW, 12/01/2023 00:04 AM COMPARISON: Abdominal radiograph November 30, 2023 CLINICAL INDICATIONS: confirm enteral access placement FINDINGS: Limited footy-gr-hcor for enteric tube evaluation. Dobbhoff tube with tip projecting over the pyloroduodenal region. No gross free air. The visualized bowel loops are nondilated. Unchanged osseous structures. IMPRESSION: Dobbhoff tube with tip projecting over the pyloroduodenal region. Consider advancement to confirm postpyloric position. Normal [facility] XR Abdomen Single viewon RADIOLOGY RADIOLOGY [facility] XR Abdomen Single viewOrdere d By: Yeison Gupta on 12-01-2023 [facility] Work Phone: CBC,PLATELETSon 11-30-2023 Hematocrit (Bld) [Volume fraction] 39.3 % Normal 34.9-44.3 [facility] Comment on above: Performed By: #### LUCIANO LA7 #### [facility] (DEFAULT) [address] [place] [address] Hemoglobin (Bld) [Mass/Vol] 12.9 g/dL Normal 11.4-15.2 [facility] Comment on above: Performed By: #### LUCIANO LA7 #### [facility] (DEFAULT) [address] [place] [address] MCV (RBC) [Entitic vol] 94.2 fL Normal 79.6-97.7 O [facility] Comment on above: Performed By: #### Iraida ALLEN CHM7 #### [facility] (DEFAULT) [address] [address] Mean Cell Hgb 30.9 pg Normal 25.9-33.9 [facility] Comment on above: Performed By: #### Iraida ALLEN CHM7 #### [facility] (DEFAULT) [address] [address] Mean Cell Hgb Conc 32.8 g/dL Normal 31.4-35.9 [facility] Comment on above: Performed By: #### Iraida ALLEN CHM7 #### [facility] (DEFAULT) [address] [address] Platelet mean volume (Bld) [Entitic vol] 10.7 fL Normal 8.5-12.2 [facility] Comment on above: Performed By: #### Iraida ALLEN CHM7 #### [facility] (DEFAULT) [address] [address] Platelets (Bld) [#/Vol] 255 10*3/uL Normal 150-393 [facility] Comment on above: Performed By: #### Iraida ALLEN CHM7 #### [facility] (DEFAULT) [address] [address] RBC (Bld) [#/Vol] 4.17 10*6/uL Normal 3.91-5.04 [facility] Comment on above: Performed By: #### Iraida ALLEN CHM7 #### [facility] (DEFAULT) [address] [address] RBC Distribution 12.6 % Normal 10.8-14.9 [facility] Comment on above: Performed By: #### Iraida ALLEN, CHM7 #### [facility] (DEFAULT) [address] [address] WBC (Bld) [#/Vol] 12.66 10*3/uL High 3.99-11.19 [facility] Comment on above: Performed By: #### M ALEJANDRO CHM7 #### [facility] (DEFAULT) [address] [place] [address] [id number] CHEM 7 (LYTES,BUN,CREA,GLUC) on 11-30-2023 Anion gap [Moles/Vol] 15 mmol/L Normal 7-17 [facility] Comment on above: Performed By: #### 1 0DRUG #### [facility] (DEFAULT) [address] [place] [address] 18818 Chloride [Moles/Vol] 106 mmol/L Normal 98-108 [facility] Comment on above: Performed By: #### 1 0DRUG #### [facility] (DEFAULT) [address] [place] [address] 72967 CO2 [Moles/Vol] 27 mmol/L Normal 21-31 [facility] Comment on above: Performed By: #### 1 0DRUG #### [facility] (DEFAULT) [address] [place] [address] 53591 Creatinine [Mass/Vol] 0.71 mg/dL Normal 0.50-1.20 [facility] Comment on above: Performed By: #### 1 0DRUG #### [facility] (DEFAULT) [address] [place] [address] 42089 GFR/1.73 sq M.predicted among non-blacks MDRD (S/P/Bld) [Vol rate/Area] 87 mL/min/{1.73_m2} Normal >=60 [facility] Comment on above: Result Comment: Repo rted eGFR is based on the CKD-EPI 2020 equation using creatinine, age, and sex. Performed By: #### 1 0DRUG #### [facility] (DEFAULT) [address] [place] [address] 67793 Glucose [Mass/Vol] 132 mg/dL High 70-99 [facility] Comment on above: Performed By: #### 1 0DRUG #### [facility] (DEFAULT) [address] [place] [address] 52093 Osmolality [Osmolality] 303 mosm/kg Normal 278-305 [facility] Comment on above: Performed By: #### 1 0DRUG #### [facility] (DEFAULT) [address] [place] [address] Potassium [Moles/Vol] 4.0 mmol/L Normal 3.5-5.0 [facility] Comment on above: Performed By: #### 1 0DRUG #### [facility] (DEFAULT) [address] [place] [address] Sodium [Moles/Vol] 144 mmol/L Normal 135-145 [facility] Comment on above: Performed By: #### 1 0DRUG #### [facility] (DEFAULT) [address] [place] [address] 49709 Urea nitrogen [Mass/Vol] 14 mg/dL Normal 7-25 [facility] Comment on above: Performed By: #### 1 0DRUG #### [facility] (DEFAULT) [address] [place] [address] 77081 Urea nitrogen/Creatinine [Mass ratio] 20 mg/mg Normal [facility] Comment on above: Performed By: #### 1 0DRUG #### [facility] (DEFAULT) [address] [place] [address] 28686 Anion gap [Moles/Vol] 15 mmol/L 7 - 17 mmol/L [facility] Chloride [Moles/Vol] 106 mmol/L 98 - 10 8 mmol/L [facility] CO2 [Moles/Vol] 27 mmol/L 21 - 31 mmol/L [facility] Creatinine [Mass/Vol] 0.71 mg/dL 0.50 - 1.20 mg/dL [facility] Glucose [Mass/Vol] 132 mg/dL High 70 - 99 mg/dL [facility] Potassium [Moles/Vol] 4.0 mmol/L 3.5 - 5.0 mmol/L [facility] Sodium [Moles/Vol] 144 mmol/L 135 - 145 mmol/L [facility] Urea nitrogen [Mass/Vol] 14 mg/dL 7 - 25 mg/dL [facility] Urea nitrogen/Creatinine [Mass ratio] 20 mg/mg [facility] CT HEAD WITHOUT CONTRASTon 0 11-30-2023 CT HEAD WITHOUT CONTRAST EXAM: CT HEAD WITHOUT CONTRAST, 11/30/2023 4:36 PM COMPARISON: CT head 11/30/2023 1009 hours and 11/29/2023 CLINICAL INDICATIONS: 78 years Female interval evaluation - dual energy CT; RELEVANT CLINICAL HISTORY: TECHNIQUE: A series of transaxial computerized tomographic images are obtained from base of skull to vertex without intravenous contrast. Axial whole-head and thin section posterior fossa slices are provided. Reformats: Sagittal and coronal. FINDINGS: Evolving CT was utilized. Again seen are evolving infarcts in the right RUBY and MCA territories involving the right frontal, parietal temporal and occipital lobes, right insula, right basal ganglia and internal/external capsules dual-energy CT demonstrates focal hematoma in the right basal ganglia measuring 1.4 x 1 cm as well as contrast staining. There is stable mass effect with [id number] midline shift measuring 3 mm. No new large territory infarct is seen. Ventricles are unchanged without progressive hydrocephalus. Skull appears intact. Visualized orbits appear normal. Visualized paranasal sinuses are clear. IMPRESSION: No interval change in acute infarcts in the right RUBY and MCA distribution with a 1.4 cm hematoma in the right basal ganglia as confirmed on dual-energy CT. Similar mass effect and leftward shift of 3 mm. Normal [facility] CT HEAD WITHOUT CONTRAST EXAM: CT HEAD WITHOUT CONTRAST, 11/30/2023 10:14 AM COMPARISON: CT STROKE HEAD-STROKE ALERT ONLY November 29, 2023 CLINICAL INDICATIONS: 78 years Female Stroke, follow up; TECHNIQUE: A series of transaxial computerized tomographic images are obtained from base of skull to vertex without intravenous contrast. Axial whole-head and thin section posterior fossa slices are provided. Reformats: Sagittal and coronal. FINDINGS: There is an area of loss of richardson-white matter differentiation involving a large portion of the right MCA vascular territory including the right frontal, temporal, occipital and parietal lobes. There is hyperdensity within the right MCA, likely related to an underlying clot. Hypodensities involving the right basal ganglia likely represent a combination of hemorrhage and contrast staining. A more focal and hyperdense component involving the right globus pallidus is more suspicious for intraparenchymal hematoma. This measures roughly 1.4 x 0.8 cm. There is associated mass effect with effacement of the right cerebral sulci and right lateral ventricle. There is minimal leftward midline shift measuring 3 mm. Basal cisterns are patent. There is effacement of the right basal cistern. No large uncal herniation. No hydrocephalus. There is mucosal thickening in the paranasal sinuses without air-fluid level. No orbital mass is identified. The mastoids are clear. IMPRESSION: Evolving infarct involving a large portion of the right MCA vascular territory as described above, increased in extent in comparison to prior head CT. Hyperdensities involving the right basal ganglia likely represent a combination of hemorrhage and contrast staining. A more focal and hyperdense component involving the right globus pallidus is favored to represent hematoma. Further characterization and distinction of hemorrhage/contrast could be obtained with a dual energy CT if clinically indicated. The suspected hemorrhagic component is new in comparison to previous head CT from November 29, 2023. There is associated mass effect with effacement of the right lateral ventricle but minimal leftward midline shift at this point in time. Findings communicated to Dr. Powers on 11/30/2023 at 10:55 AM. Normal [facility] CT Head WO contraston 2023 RADIOLOGY RADIOLOGY [facility] Radiology Study observation (narrative) [facility] RADIOLOGY RADIOLOGY [facility] Rad[facility] Study [facility] (narrative) [facility] WO contrastOrdered B y: Celestine Del Toro on 11-30-2023 [facility] Work Phone: CT Head WO contrastOrdered B y: Adam Nichole on 11-30-2023 [facility] Work Phone: CT NEURO HEAD/SPINE/NECK (IN TERPRETATION - OUTSIDE IMAGE)on 11-30-2023 CT NEURO HEAD/SPINE/NECK (INTERPRETATION - OUTSIDE IMAGE) EXAM: CT NEURO HEAD/SPINE/NECK (INTERPRETATION - OUTSIDE IMAGE), 11/30/2023 09:53 AM DATE- OUTSIDE STUDY PERFORMED: November 29, 2023 COMPARISON: No priors available for comparison. CLINICAL INDICATIONS: Reason for Exam:->Overread on OSH CTA, DISCLAIMER: This is an interpretation of images obtained at an outside imaging facility. This report refers only to the anatomic area or body part in the study description, as requested. STUDY DESCRIPTION: CT angiogram of the brain and neck with IV contrast. TECHNIQUE: CT angiogram of the brain and neck was performed with intravenous contrast. FINDINGS: CT ANGIOGRAM NECK: AORTIC ARCH: Conventional anatomic origin of the great vessels. Atherosclerosis involving the great vessel origins is noted, without significant stenosis. RIGHT CAROTID ARTERY: Common carotid artery is patent and normal in caliber. Internal carotid artery origin at the bifurcation demonstrates atherosclerotic plaque, without significant stenosis. Immediately distal to the bifurcation, there is cutoff of contrast which extends intracranially through the carotid terminus. LEFT CAROTID ARTERY: Common carotid artery is patent and normal in caliber. Internal carotid artery origin at the bifurcation demonstrates atherosclerotic plaque, without significant stenosis. More distal cervical segments of the internal carotid artery are patent and normal in caliber. RIGHT VERTEBRAL ARTERY: Origin is patent. More distal cervical segments are patent and normal in caliber. LEFT VERTEBRAL ARTERY: Origin is patent. More distal cervical segments are patent and normal in caliber. OTHER: No dissection or pseudoaneurysm. CT ANGIOGRAM HEAD: INTERNAL CAROTID ARTERIES: The right carotid artery is occluded in the cervical segment extending through the petrous and cavernous segments of the carotid terminus. This extends into the right and 1 and A-1 segments.. ANTERIOR CEREBRAL ARTERIES: Occlusion of the proximal right P1 segment.. Anterior cerebral arteries are otherwise patent without significant stenosis. MIDDLE CEREBRAL ARTERIES: The right M1 segment is occluded with distal reconstitution of the distal most M1 and proximal M2 branches. POSTERIOR CEREBRAL ARTERIES: Patent and normal in caliber. Posterior communicating arteries are patent bilaterally. VERTEBRAL ARTERIES: Patent and normal in caliber. Atherosclerotic calcifications of the proximal V4 segment on the left. BASILAR ARTERY: Patent. No significant stenosis. OTHER: No aneurysm or AVM. ADDITIONAL FINDINGS: Multiple thyroid nodules are noted, largest extending inferiorly from the isthmus measures 2.2 cm. This may be further assessed with nonemergent thyroid ultrasound if one has not been previously obtained. 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 There is distal reconstitution of several right middle cerebral artery branches, likely related to collateral flow. Occlusion of the right M1 segment with distal reconstitution, as above. Short segment of occlusion of the proximal right A1 segment. Remainder of the anterior cerebral arteries are patent, without significant stenosis. 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 There is distal reconstitution of several right middle cerebral artery branches, likely related to collateral flow. Occlusion of the right M1 segment with distal reconstitution, as above. Short segment of occlusion of the proximal right A1 segment. Remainder of the anterior cerebral arteries are patent, without significant stenosis. OLOGY EXAM: CT NEURO HEAD/SPINE/NECK (INTERPRETATION - OUTSIDE IMAGE), 11/30/2023 09:53 AM DATE- OUTSIDE STUDY PERFORMED: November 29, 2023 COMPARISON: No priors available for comparison. CLINICAL INDICATIONS: Reason for Exam:->Overread on OSH CTA, DISCLAIMER: This is an interpretation of images obtained at an outside imaging facility. This report refers only to the anatomic area or body part in the study description, as requested. STUDY DESCRIPTION: CT angiogram of the brain and neck with IV contrast. TECHNIQUE: CT angiogram of the brain and neck was performed with intravenous contrast. FINDINGS: CT ANGIOGRAM NECK: AORTIC ARCH: Conventional anatomic origin of the great vessels. Atherosclerosis involving the great vessel origins is noted, without significant stenosis. RIGHT CAROTID ARTERY: Common carotid artery is patent and normal in caliber. Internal carotid artery origin at the bifurcation demonstrates atherosclerotic plaque, without significant stenosis. Immediately distal to the bifurcation, there is cutoff of contrast which extends intracranially through the carotid terminus. LEFT CAROTID ARTERY: Common carotid artery is patent and normal in caliber. Internal carotid artery origin at the bifurcation demonstrates atherosclerotic plaque, without significant stenosis. More distal cervical segments of the internal carotid artery are patent and normal in caliber. RIGHT VERTEBRAL ARTERY: Origin is patent. More distal cervical segments are patent and normal in caliber. LEFT VERTEBRAL ARTERY: Origin is patent. More distal cervical segments are patent and normal in caliber. OTHER: No dissection or pseudoaneurysm. CT ANGIOGRAM HEAD: INTERNAL CAROTID ARTERIES: The right carotid artery is occluded in the cervical segment extending through the petrous and cavernous segments of the carotid terminus. This extends into the right and 1 and A-1 segments.. ANTERIOR CEREBRAL ARTERIES: Occlusion of the proximal right P1 segment.. Anterior cerebral arteries are otherwise patent without significant stenosis. MIDDLE CEREBRAL ARTERIES: The right M1 segment is occluded with distal reconstitution of the distal most M1 and proximal M2 branches. POSTERIOR CEREBRAL ARTERIES: Patent and normal in caliber. Posterior communicating arteries are patent bilaterally. VERTEBRAL ARTERIES: Patent and normal in caliber. Atherosclerotic calcifications of the proximal V4 segment on the left. BASILAR ARTERY: Patent. No significant stenosis. OTHER: No aneurysm or AVM. ADDITIONAL FINDINGS: Multiple thyroid nodules are noted, largest extending inferiorly from the isthmus measures 2.2 cm. This may be further assessed with nonemergent thyroid ultrasound if one has not been previously obtained. RADIOLOGY Bassam Monreal MD - 11/30/2023 EXAM: CT NEURO HEAD/SPINE/NECK (INTERPRETATION - OUTSIDE IMAGE), 11/30/2023 09:53 AM DATE- OUTSIDE STUDY PERFORMED: November 29, 2023 COMPARISON: No priors available for comparison. CLINICAL INDICATIONS: Reason for Exam:->Overread on OSH CTA, DISCLAIMER: This is an interpretation of images obtained at an outside imaging facility. This report refers only to the anatomic area or body part in the study description, as requested. STUDY DESCRIPTION: CT angiogram of the brain and neck with IV contrast. TECHNIQUE: CT angiogram of the brain and neck was performed with intravenous contrast. FINDINGS: CT ANGIOGRAM NECK: AORTIC ARCH: Conventional anatomic origin of the great vessels. Atherosclerosis involving the great vessel origins is noted, without significant stenosis. RIGHT CAROTID ARTERY: Common carotid artery is patent and normal in caliber. Internal carotid artery origin at the bifurcation demonstrates atherosclerotic plaque, without significant stenosis. Immediately distal to the bifurcation, there is cutoff of contrast which extends intracranially through the carotid terminus. LEFT CAROTID ARTERY: Common carotid artery is patent and normal in caliber. Internal carotid artery origin at the bifurcation demonstrates atherosclerotic plaque, without significant stenosis. More distal cervical segments of the internal carotid artery are patent and normal in caliber. RIGHT VERTEBRAL ARTERY: Origin is patent. More distal cervical segments are patent and normal in caliber. LEFT VERTEBRAL ARTERY: Origin is patent. More distal cervical segments are patent and normal in caliber. OTHER: No dissection or pseudoaneurysm. CT ANGIOGRAM HEAD: INTERNAL CAROTID ARTERIES: The right carotid artery is occluded in the cervical segment extending through the petrous and cavernous segments of the carotid terminus. This extends into the right and 1 and A-1 segments.. ANTERIOR CEREBRAL ARTERIES: Occlusion of the proximal right P1 segment.. Anterior cerebral arteries are otherwise patent without significant stenosis. MIDDLE CEREBRAL ARTERIES: The right M1 segment is occluded with distal reconstitution of the distal most M1 and proximal M2 branches. POSTERIOR CEREBRAL ARTERIES: Patent and normal in caliber. Posterior communicating arteries are patent bilaterally. VERTEBRAL ARTERIES: Patent and normal in caliber. Atherosclerotic calcifications of the proximal V4 segment on the left. BASILAR ARTERY: Patent. No significant stenosis. OTHER: No aneurysm or AVM. ADDITIONAL FINDINGS: Multiple thyroid nodules are noted, largest extending inferiorly from the isthmus measures 2.2 cm. This may be further assessed with nonemergent thyroid ultrasound if one has not been previously obtained. 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 There is distal reconstitution of several right middle cerebral artery branches, likely related to collateral flow. Occlusion of the right M1 segment with distal reconstitution, as above. Short segment of occlusion of the proximal right A1 segment. Remainder of the anterior cerebral arteries are patent, without significant stenosis. [facility] Cardiac echo study Procedure Ordered By: Blanca Beard on 11-30-2023 Ao arch index 1.42 cm/m2 [facility] Work Phone: Ao ASC index 1.86 cm/m2 [facility] Work Phone: Ao peak teajl 1.38 m/s [facility] Work Phone: Ao SOV index 1.97 cm/m2 [facility]: Ao STJ index 1.68 cm/m2 [facility] Work Phone: Ao VTI 26.49 cm [facility] Work Phone: Aortic arch 2.72 cm [facility] Work Phone: Ascending aorta 3.57 cm [facility] Work Phone: AV LVOT peak gradient 4 mmHg [facility] Work Phone: AV mean gradient [address] [facility] Work Phone: AV peak gradient [address] [facility] Work Phone: AV valve area 1.44 cm2 [facility] Work Phone: [facility] Velocity [facility].73 [facility]: ESTHER (continuity Vmax) 1.31 cm2 [facility] Work Phone: ESTHER (continuity VTI) 1.44 cm2 [facility] Work Phone: ESTHER index (continuity Vmax) 0.68 m/s [facility] Work Phone: ESTHER index (continuity VTI) 0.75 cm2/m2 [facility] Work Phone: Avg e' pk tejal 0.05 m/s [facility] Work Phone: Avg E/e' ratio 18.68 [facility] Work Phone: Body surface area Derived from formula 1.92 m2 [facility] Work Phone: BP EF 77 % [facility] Work Phone: DI (Vmax) 0.73 [facility] Work Phone: DI (VTI) 0.80 m/2 [facility] Work Phone: E wave decelartion time 320.09 msec [facility] Work Phone: e' lateral pk tejal 0.0565 m/s [facility] Work Phone: e' lateral pk tejal 0.06 m/s [facility] Work Phone: e' septal pk tejal 0.0445 m/s [facility] Work Phone: e' septal pk tejal 0.04 m/s [facility] Work Phone: E/A ratio 0.80 [facility] Work Phone: E/e' lateral ratio 16.46 [facility] Work Phone: E/e' septal ratio 20.90 [facility] Work Phone: EF SP 2CH 78 [facility] Work Phone: EF SP 4CH 75 [facility] Work Phone: EST RAP 3.00 mmHg [facility] Work Phone: FS 38 % 28 - 44 % [facility] Work Phone: IVC ostium 1.75 cm [facility] Work Phone: IVS 1.09 cm [facility] Work Phone: LA AREA 2CH 10.05 cm2 [facility] Work Phone: LA area 4CH 12.76 cm2 [facility] Work Phone: LA ESV BP (MOD) 31 mL [facility] Work Phone: LA ESV BP (MOD) index 16 mL/m2 [facility] Work Phone: LA ESV SP 2CH (MOD) 25 mL [facility] Work Phone: LA ESV SP 4CH (MOD) 25 mL [facility] Work Phone: LV EDV BP 62 mL [facility] Work Phone: LV EDV SP 2CH 68 mL [facility] Work Phone: LV EDV SP 4CH 51 mL [facility] Work Phone: LV ESV BP 14 mL [facility] Work Phone: LV ESV SP 2CH 15 mL [facility] Work Phone: LV ESV SP 4CH 13 mL [facility] Work Phone: LV mass 193.72 g [facility] Work Phone: LV Mass Index 100.9 g/m2 [facility] Work Phone: LV RWT 0.63 [facility] Work Phone: LV stroke volume BP (ml) 48 mL [facility] Work Phone: LV stroke volume index BP 25.00 mL/m2 [facility] Work Phone: LVIDD 4.35 cm [facility] Work Phone: LVIDS 2.68 cm [facility] Work Phone: LVOT area 1.79 cm2 [facility] Work Phone: LVOT diameter 1.51 cm [facility] Work Phone: LVOT peak tejal 1.01 m/s [facility] Work Phone: LVOT peak VTI 21.28 cm [facility] Work Phone: LVOT stroke volume 38 cm3 [facility] Work Phone: LVOT stroke volume index 19.84 ml/m2 [facility] Work Phone: MV pk A tejal 1.16 m/s [facility] Work Phone: MV pk E tejal 0.93 m/s [facility] Work Phone: [facility] AV VTI RATIO PRE STRESS 0.80 [facility] Work Phone: O[facility] ECHO LV BIPLANE SYSTOLIC VOLUME INDEX 7.29 mL/m2 [facility] Work Phone: [facility] ECHO LV BP DIASTOLIC VOLUME INDEX 32.29 mL/m2 [facility] Work Phone: PV mean gradient [address] [facility] Work Phone: PV peak gradient [address] [facility] Work Phone: PV PK TEJAL 0.89 m/s [facility] Work Phone: PW 1.36 cm [facility] Work Phone: RA area 4CH (MOD) 8.79 cm2 [facility] Work Phone: RA vol index 4CH (MOD) 6.77 mL/m2 [facility] Work Phone: Right atrium volume 4 chamber method of disks [address] [facility] Work Phone: RV Area diastolic 17.50 cm2 [facility] Work Phone: RV Area systolic 9.[address] [facility] Work Phone: RV basal diam 4.56 cm [facility] Work Phone: RV Fractional area change 48.6 % [facility] Work Phone: RV long diam 6.05 cm [facility] Work Phone: RV mid diam 3.42 cm [facility] Work Phone: RV S' 18.64 cm/s [facility] Work Phone: RVOT peak gradient 2 mmHg [facility] Work Phone: RVOT peak tejal 0.72 m/s [facility] Work Phone: RVOT peak VTI 15.47 cm [facility] Work Phone: Sinus 3.79 cm [facility] Work Phone: STJ 3.22 cm [facility] Work Phone: Stroke Volume 38 cm/mL [facility] Work Phone: Stroke volume index 20 [facility] Work Phone: TAPSE 2.14 cm [facility] Work Phone: [facility] Work Phone: Cardiac echo study Procedure on 11-30-2023 [facility] Radiology Study observation (narrative) [facility] ECHOCARDIOGRAMon 11-30-2023 Echocardiography ? No prior study for comparison. ? Left Ventricle: Chamber size is normal. Increased wall thickness. Concentric remodeling is present. Normal global systolic function. Regional wall motion is normal. Ejection fraction is hyperdynamic (>70%). Diastolic function could not be determined. ? Right Ventricle: Chamber size is normal. Systolic function is normal. ? Left Atrium: Chamber size is normal. ? Aortic Valve: Trileaflet valve. Leaflet mobility is normal. Mild regurgitation. No stenosis. ? Mitral Valve: Normal appearing leaflets. Leaflet mobility is normal. Moderate posterior annular calcification. Mild regurgitation. No valve stenosis. ? Tricuspid Valve: Normal leaflets. Leaflet mobility is normal. Trace regurgitation. No stenosis. Poor tricuspid regurgitation jet may not accurately reflect right ventricular systolic pressure. Table formatting from the original result was not included. Images from the original result were not included. Facility [facility] Patient Information Patient Name Aroldo Vargas Legal Sex Female Indication for Exam Priority: Routine Dx: Acute right MCA stroke [I63.511 (ICD-10-CM)] Order Question Reason for Exam Stroke Interpretation Summary ? No prior study for comparison. ? Left Ventricle: Chamber size is normal. Increased wall thickness. Concentric remodeling is present. Normal global systolic function. Regional wall motion is normal. Ejection fraction is hyperdynamic (>70%). Diastolic function could not be determined. ? Right Ventricle: Chamber size is normal. Systolic function is normal. ? Left Atrium: Chamber size is normal. ? Aortic Valve: Trileaflet valve. Leaflet mobility is normal. Mild regurgitation. No stenosis. ? Mitral Valve: Normal appearing leaflets. Leaflet mobility is normal. Moderate posterior annular calcification. Mild regurgitation. No valve stenosis. ? Tricuspid Valve: Normal leaflets. Leaflet mobility is normal. Trace regurgitation. No stenosis. Poor tricuspid regurgitation jet may not accurately reflect right ventricular systolic pressure. Findings Left Ventricle Chamber size is normal. Increased wall thickness. Concentric remodeling is present. Normal global systolic function. Regional wall motion is normal. Ejection fraction is hyperdynamic (>70%). Diastolic function could not be determined. Right Ventricle Chamber size is normal. Systolic function is normal. Fractional area change equals 48.6 %. Left Atrium Chamber size is normal. Right Atrium Chamber size is normal. Mitral Valve Normal appearing leaflets. Leaflet mobility is normal. Moderate posterior annular calcification. Mild regurgitation. No valve stenosis. Aortic Valve Trileaflet valve. Leaflet mobility is normal. Mild regurgitation. No stenosis. Mean gradient: 4 mmHg. Dimensionless Index by VTI: 0.80. Valve area continuity VMAX: 1.31 cm2. Tricuspid Valve Normal leaflets. Leaflet mobility is normal. Trace regurgitation. No stenosis. Poor tricuspid regurgitation jet may not accurately reflect right ventricular systolic pressure. Pulmonic Valve Normal structure. No regurgitation. No stenosis. Aorta No dilation to extent seen. SOV: 3.79 cm. STJ: 3.22 cm. Ascendin.57 cm. Arch: 2.72 cm. Arch index: 1.42 cm/m2. Pericardium An echo density consistent with a fat pad is present. No pericardial effusion. IVC/SVC The inferior vena cava structure has a diameter <21 mm and decreases >50% during inspiration. Reading Providers Reading Role Read Date Blanca Beard MD Echo [place], [employer] 11/30/2023 Left Heart Measurements LV - Systole LVIDD 4.35 cm IVS 1.09 cm LVIDS 2.68 cm PW 1.36 cm LV RWT 0.63 LV Mass Index 100.9 g/m2 LV EDV BP 62 mL LV ESV BP 14 mL BP EF 77 % LV stroke volume BP (ml) 48 mL LV stroke volume index BP 25 mL/m2 LV - Diastole MV pk E tejal 0.93 m/s MV pk A tejal 1.16 m/s E/A ratio 0.8 e' septal pk tejal 0.04 m/s e' lateral pk tejal 0.06 m/s Avg e' pk tejal 0.05 m/s E/e' septal ratio 20.9 E/e' lateral ratio 16.46 Avg E/e' ratio 18.68 LV - HCM AV LVOT peak gradient 4 mmHg Left Atrium LA ESV SP 4CH (MOD) 25 mL LA ESV SP 2CH (MOD) 25 mL LA ESV BP (MOD) index 16 mL/m2 Right Heart Measurements RV - 2D RV basal diam 4.56 cm RV mid diam 3.42 cm RV long diam 6.05 cm RV Area diastolic 17.5 cm2 RV Area systolic 9 cm2 RV Fractional area change 48.6 % RV - Doppler TAPSE 2.14 cm RV S' 18.64 cm/s Right Atrium RA vol index 4CH (MOD) 6.77 mL/m2 EST RAP 3 mmHg RA area 4CH (MOD) 8.79 cm2 Great Vessels Aortic Root - End Diastolic Sinus 3.79 cm STJ 3.22 cm Ascending aorta 3.57 cm Aortic arch 2.72 cm Inferior Vena Cava IVC ostium 1.75 cm Doppler Measurements - Aortic Valve Stenosis LVOT diameter (more content not included)... Normal [facility] GLUCOSE POCon 11-30-2023 Glucose [Mass/Vol] 100 mg/dL High 70 - 99 mg/dL [facility] Interpretation and review of laboratory results Abnormal [facility] POC Sample Type [facility] Glucose [Mass/Vol] 118 mg/dL High 70 - 99 mg/dL [facility] Interpretation and review of laboratory results Abnormal [facility] POC Sample Type [facility] HEMOGLOBIN A1Con 11-30-2023 Average glucose Estimated from glycated hemoglobin (Bld) [Mass/Vol] 105 mg/dL [facility] HbA1c (Bld) [Mass fraction] 5.3 % 4.7 - 5.6 % [facility] Glucose [Mass/Vol] 105 mg/dL Normal [facility] Comment on above: Performed By: #### B LDCULT #### [facility] (DEFAULT) [address] [address] Hemoglobin A1C HPLC 5.3 % Normal 4.7-5.6 [facility] Comment on above: Performed By: #### B LDCULT #### [facility] (DEFAULT) [address] [address] HEPATIC FUNCTION PANELon Albumin [Mass/Vol] 3.4 g/dL Low 3.5-5.0 [facility] Comment on above: Performed By: #### 1 0DRUG #### [facility] (DEFAULT) [address] [place] [address] ALP [Catalytic activity/Vol] 80 U/L Normal 32-126 [facility] Comment on above: Performed By: #### 1 0DRUG #### [facility] (DEFAULT) [address] [place] [address] ALT [Catalytic activity/Vol] 8 U/L Low 9-48 [facility] Comment on above: Performed By: #### 1 0DRUG #### [facility] (DEFAULT) [address] [place] [address] AST [Catalytic activity/Vol] 16 U/L Normal 10-39 [facility] Comment on above: Performed By: #### 1 0DRUG #### [facility] (DEFAULT) [address] [place] [address] Bilirubin [Mass/Vol] 0.9 mg/dL Normal <1.5 [facility] Comment on above: Performed By: #### 1 0DRUG #### [facility] (DEFAULT) [address] [place] [address] Bilirubin.indirect [Mass/Vol] 0.2 mg/dL Normal <0.3 [facility] Comment on above: Performed By: #### 1 0DRUG #### [facility] (DEFAULT) [address] [place] [address] Protein [Mass/Vol] 6.4 g/dL Normal 6.4-8.3 [facility] Comment on above: Performed By: #### 1 0DRUG #### [facility] (DEFAULT) [address] [place] [address] Albumin [Mass/Vol] 3.4 g/dL Low 3.5 - 5.0 g/dL [facility] ALP [Catalytic activity/Vol] 80 U/L 32 - 126 U/L [facility] ALT [Catalytic activity/Vol] 8 U/L Low 9 - 48 U/L [facility] AST [Catalytic activity/Vol] 16 U/L 10 - 39 U/L [facility] Bilirubin [Mass/Vol] 0.9 mg/dL NINF - 1.5 mg/dL [facility] Bilirubin.direct [Mass/Vol] 0.2 mg/dL NINF - 0.3 mg/dL [facility] Protein [Mass/Vol] 6.4 g/dL 6.4 - 8.3 g/dL [facility] HIGH SENSITIVITY TROPONIN I - SINGLE ORDERon 11-30-2023 hs-Troponin I 84 ng/L High <34 [facility] Comment on above: Order Comment: Acute Coronary Syndrome (ACS): Initial Evaluation and Management:[email or web address] Performed By: #### M MYKEL ALLEN7 #### [facility] (DEFAULT) [address] [address] HIGH SENSITIVITY TROPONIN I - SINGLE ORDEROrdered By: Bob Springer on 11-30-2023 Interpretation and review of laboratory results Abnormal [facility] Troponin I.cardiac High sensitivity method [Mass/Vol] 84 ng/L High NINF - 34 ng/L [facility] LIPID PANEL WITH REFLEX TO Iraida BANEGAS LDLon 11-30-2023 Calculated LDL Cholesterol 130 mg/dL High 0-99 [facility] Comment on above: Result Comment: [<10 0 mg/dL: Optimal] [100-129 mg/dL: Near Optimal] [130-159 mg/dL: Borderline High] [160-189 mg/dL: High] [>189 mg/dL: Very High] Performed By: #### 1 0DRUG #### [facility] (DEFAULT) [address] [place] [address] Cholesterol [Mass/Vol] 186 mg/dL Normal <200 [facility] Comment on above: Result Comment: [<20 0 mg/dL: Desirable] [200-239 mg/dL: Borderline High] [>239 mg/dL: High] Performed By: #### 1 0DRUG #### [facility] (DEFAULT) [address] [place] [address] Cholesterol in HDL [Mass/Vol] 39 mg/dL Low >=40 [facility] Comment on above: Result Comment: [<40 mg/dL: Low (High Risk)] [>59 mg/dL: High (Low Risk)] Performed By: #### 1 0DRUG #### [facility] (DEFAULT) [address] [place] [address] Non HDL Cholesterol 147 mg/dL High <130 [facility] Comment on above: Performed By: #### 1 0DRUG #### [facility] (DEFAULT) [address] [place] [address] Total Cholesterol/HDL Ratio 4.8 High <4.5 [facility] Comment on above: Performed By: #### 1 0DRUG #### [facility] (DEFAULT) [address] [place] [address] Triglyceride [Mass/Vol] 86 mg/dL Normal <150 [facility] Comment on above: Result Comment: [<15 0 mg/dL: Desirable] [150-199 mg/dL: Borderline] [200-499 mg/dL: High] [>500 mg/dL: Very High] Performed By: #### 1 0DRUG #### [facility] (DEFAULT) [address] [place] [address] Cholesterol [Mass/Vol] 186 mg/dL NINF - 200 mg/dL [facility] Cholesterol in HDL [Mass/Vol] 39 mg/dL Low 40 - PINF mg/dL [facility] Cholesterol in LDL [Mass/Vol] 130 mg/dL High 0 - 99 mg/dL [facility] Cholesterol non HDL [Mass/Vol] 147 mg/dL High NINF - 130 mg/dL [facility] Cholesterol.total/Amaya sterol in HDL [Mass ratio] 4.8 {ratio} High NINF - 4.5 [facility] Triglyceride [Mass/Vol] 86 mg/dL NINF - 150 mg/dL [facility] LT BLUE TOP TUBEon 4 [facility] MAGNESIUMon 11-30-2023 Magnesium [Mass/Vol] 2.0 mg/dL Normal 1.6-2.6 [facility] Comment on above: Performed By: #### 1 0DRUG #### [facility] (DEFAULT) [address] [place] [address] Interpretation and review of laboratory results Normal [facility] Magnesium [Mass/Vol] 2.0 mg/dL 1.6 - 2 .6 mg/dL [facility] MR Brain WO contraston 11-30 RADIOLOGY RADIOLOGY [facility] Radiology Study observation (narrative) [facility] No Panel InformationOrdered By: Bassam Monreal on 11-30-2023 [facility] Work Phone: No Panel Informationon 11-30 Radiology Study observation (narrative) [facility] URINALYSIS REFLEX TO CULTURE PERFORMABLEon 11-30-2023 Appearance (U) Clear Normal Clear [facility] Comment on above: Order Comment: For i ndwelling catheters, specimen collection is acceptable on catheter day 1 and 2 only. ? Performed By: #### H EMOGC #### [facility] (DEFAULT) [address] [place] [address] Bacteria ABSENT Normal ABSENT [facility] Comment on above: Order Comment: For i ndwelling catheters, specimen collection is acceptable on catheter day 1 and 2 only. ? Performed By: #### H EMOGC #### [facility] (DEFAULT) [address] [place] [address] Blood Urine Negative Normal Negative [facility] Comment on above: Order Comment: For i ndwelling catheters, specimen collection is acceptable on catheter day 1 and 2 only. ? Performed By: #### H EMOGC #### [facility] (DEFAULT) [address] [place] [address] Color (U) Yellow Normal Yellow [facility] Comment on above: Order Comment: For i ndwelling catheters, specimen collection is acceptable on catheter day 1 and 2 only. ? Performed By: #### H EMOGC #### [facility] (DEFAULT) [address] [place] [address] Glucose Ql (U) Negative Normal Negative [facility] Comment on above: Order Comment: For i ndwelling catheters, specimen collection is acceptable on catheter day 1 and 2 only. ? Performed By: #### H EMOGC #### [facility] [address] [place] [address] Ketones Ql (U) Negative Normal Negative [facility] Comment on above: Order Comment: For i ndwelling catheters, specimen collection is acceptable on catheter day 1 and 2 only. ? Performed By: #### H EMOGC #### [facility] (DEFAULT) [address] [place] [address] Leukocyte esterase Test strip Ql (U) Negative Normal Negative [facility] Comment on above: Order Comment: For i ndwelling catheters, specimen collection is acceptable on catheter day 1 and 2 only. ? Performed By: #### H EMOGC #### [facility] (DEFAULT) [address] [place] [address] Nitrites Urine Negative Normal Negative [facility] Comment on above: Order Comment: For i ndwelling catheters, specimen collection is acceptable on catheter day 1 and 2 only. ? Performed By: #### H EMOGC #### [facility] (DEFAULT) [address] [place] [address] pH (U) 5.0 [pH] Normal 5.0-7.0 [facility] Comment on above: Order Comment: For i ndwelling catheters, specimen collection is acceptable on catheter day 1 and 2 only. ? Performed By: #### H EMOGC #### [facility] (DEFAULT) [address] [place] [address] Protein Urine Trace Abnormal Negative [facility] Comment on above: Order Comment: For i ndwelling catheters, specimen collection is acceptable on catheter day 1 and 2 only. ? Performed By: #### H EMOGC #### [facility] (DEFAULT) [address] [place] [address] RBC Urine 0-2 Normal 0-2 [facility] Comment on above: Order Comment: For i ndwelling catheters, specimen collection is acceptable on catheter day 1 and 2 only. ? Performed By: #### H EMOGC #### [facility] (DEFAULT) [address] [place] [address] Specific [place] Urine > High 1.001-1.035 O [facility] Comment on above: Order Comment: For i ndwelling catheters, specimen collection is acceptable on catheter day 1 and 2 only. ? Performed By: #### H EMO #### [facility] (DEFAULT) [address] [place] [address] Squamous/Epithelial Cells 3-5/hpf = 1+ Normal 0-2/hpf, 3-5/hpf = 1+ [facility] Comment on above: Order Comment: For i ndwelling catheters, specimen collection is acceptable on catheter day 1 and 2 only. ? Performed By: #### H EMO #### [facility] (DEFAULT) [address] [place] [address] Urobilinogen Urine 1.0 E.U./dL Normal 0.2 E.U/d L, 1.0 E.U/dL [facility] Comment on above: Order Comment: For i ndwelling catheters, specimen collection is acceptable on catheter day 1 and 2 only. ? Performed By: #### H EMOGC #### [facility] (DEFAULT) [address] [place] [address] WBC Urine 0 - 5 Normal 0 - 5 [facility] Comment on above: Order Comment: For i ndwelling catheters, specimen collection is acceptable on catheter day 1 and 2 only. ? Performed By: #### H EMOGC #### [facility] (DEFAULT) [address] [place] [address] URINALYSIS REFLEX TO CULTURE PERFORMABLEOrdered By: Mary Dallas on 11-30-2023 Appearance (U) Clear Clear [facility] Bacteria LM Ql (Urine sed) ABSENT ABSENT [facility] Color (U) Yellow Yellow [facility] Epithelial cells.squamous LM Ql (Urine sed) 3-5/hpf = 1+ 0-2/hpf, 3-5/hpf = 1+ [facility] Glucose Test strip (U) [Mass/Vol] Negative Negative [facility] Interpretation and review of laboratory results Abnormal [facility] Ketones (U) [Mass/Vol] Negative Negative [facility] Leukocyte esterase Test strip Ql (U) Negative [facility] Nitrite Ql (U) Negative Negative [facility] pH (U) 5.0 [pH] 5.0 - 7.0 [facility] Protein (U) [Mass/Vol] Trace Abnormal Negative [facility] RBC (U) [#/Vol] [facility] RBC LM.HPF (Urine sed) [#/Area] 0-2 [facility] Specific gravity (U) [Rel density] High 1.001 - 1.035 [facility] Urobilinogen (U) [Mass/Vol] 1.0 E.U./dL 0.2 E.U/dL, 1.0 E.U/dL [facility] WBC LM.HPF (Urine sed) [#/Area] 0 - 5 [facility] URINE DRUG SCREEN 11-30 Amphetamine/Methampheta mine Not detected Normal Cutoff: 500 ng/mL [facility] Comment on above: Order Comment: For m edical purposes only. Positive results are unconfirmed unless otherwise noted. Performed By: #### 1 0DRUG #### [facility] (DEFAULT) [address] [place] [address] Barbiturates Not detected Normal Cutoff: 200 ng/mL [facility] Comment on above: Order Comment: For m edical purposes only. Positive results are unconfirmed unless otherwise noted. Performed By: #### 1 0DRUG #### [facility] (DEFAULT) [address] [address] Benzodiazepines Not detected Normal Cutoff: 200 ng/mL [facility] Comment on above: Order Comment: For m edical purposes only. Positive results are unconfirmed unless otherwise noted. Performed By: #### 1 0DRUG #### [facility] (DEFAULT) [address] [address] Buprenorphine Not detected Normal Cutoff: 5 ng/mL [facility] Comment on above: Order Comment: For m edical purposes only. Positive results are unconfirmed unless otherwise noted. Performed By: #### 1 0DRUG #### [facility] (DEFAULT) [address] [address] Cannabinoids Screen Ql (U) Not detected Normal Cutoff: 50 ng/mL [facility] Comment on above: Order Comment: For m edical purposes only. Positive results are unconfirmed unless otherwise noted. Performed By: #### 1 0DRUG #### [facility] (DEFAULT) [address] [address] Cocaine Not detected Normal Cutoff: 150 ng/mL [facility] Comment on above: Order Comment: For edical purposes only. Positive results are unconfirmed unless otherwise noted. Performed By: #### 1 0DRUG #### [facility] (DEFAULT) [address] [address] Fentanyl Not detected Normal Cutoff: 1 ng/mL [facility] Comment on above: Order Comment: For m edical purposes only. Positive results are unconfirmed unless otherwise noted. Performed By: #### 1 0DRUG #### [facility] (DEFAULT) [address] [address] Methadone Not detected Normal Cutoff: 300 ng/mL [facility] Comment on above: Order Comment: For edical purposes only. Positive results are unconfirmed unless otherwise noted. Performed By: #### 1 0DRUG #### [facility] (DEFAULT) [address] [address] Opiates Not detected Normal Cutoff: 300 ng/mL [facility] Comment on above: Order Comment: For m edical purposes only. Positive results are unconfirmed unless otherwise noted. Performed By: #### 1 0DRUG #### [facility] (DEFAULT) [address] [address] Oxycodone Not detected Normal Cutoff: 100 ng/mL [facility] Comment on above: Order Comment: For m edical purposes only. Positive results are unconfirmed unless otherwise noted. Performed By: #### 1 0DRUG #### [facility] (DEFAULT) [address] [address] Amphetamine+Methampheta mine Screen (U) [Mass/Vol] Not detected [facility] Barbiturates Ql (U) Not detected [facility] Benzodiazepines Ql (U) Not detected [facility] Buprenorphine Ql (U) Not detected [facility] Cannabinoids Screen Ql (U) Not detected [facility] Cocaine Ql (U) Not detected [facility] fentaNYL Ql (U) Not detected [facility] Interpretation and review of laboratory results Normal [facility] Methadone Ql (U) Not detected [facility] Opiates Ql (U) Not detected [facility] oxyCODONE Ql (U) Not detected [facility] VON WILLEBRAND FACTOR AGOrde red By: Clarissa Dooley on 11-30-2023 Interpretation and review of laboratory results Abnormal [facility] vWf Ag actual/normal IA (PPP) [Relative mass conc] 211 % High 50 - 180 % [facility] VON WILLEBRAND FACTOR AGon 0 11-30-2023 Von Willebrand Factor Antigen 211 % High 50-180 [facility] Comment on above: Performed By: #### H EMOGC #### [facility] (DEFAULT) [address] [address] XR ABDOMEN 1 VIEW PORTABLEon 11-30-2023 XR ABDOMEN 1 VIEW PORTABLE EXAM: XR ABDOMEN 1 VIEW PORTABLE, 11/30/2023 02:36 AM COMPARISON: November 30, 2023 at 1:22 AM CLINICAL INDICATIONS: Tube placement FINDINGS/IMPRESSION: Tubes: Feeding tube tip is just entering the duodenum. The lower pelvis was excluded. Normal bowel gas pattern. No definite pneumoperitoneum. Normal [facility] XR ABDOMEN 1 VIEW PORTABLE EXAM: XR ABDOMEN 1 VIEW PORTABLE, 11/30/2023 01:34 AM COMPARISON: No prior abdominal radiographs available for comparison. CLINICAL INDICATIONS: Tube placement FINDINGS: Limited field of view radiograph of the upper abdomen was obtained to evaluate enteric tube positioning. The feeding tube with its tip proximal stomach. Prominent gaseous distention of the stomach and visualized bowel loops. No gross free air. Vascular calcifications noted. Visualized osseous structures demonstrate multilevel degenerative changes. IMPRESSION: Feeding tube with tip in the proximal stomach. If postpyloric position is desired further advancement is recommended. Normal [facility] XR Abdomen Single viewon Radiology Study observation (narrative) [facility] RADIOLOGY RADIOLOGY [facility] XR Abdomen Single viewOrdere d By: Maxx Castellanos on 11-30-2023 [facility] Work Phone: Absolute lymphocyte countOrd ered By: Marcellus Barney on 11-29-2023 Lymphocytes Auto (Unsp spec) [#/Vol] 0.68 10*3/uL 0.83-4.51 [facility] Basophil percentageOrdered B y: Marcellus Barney on 11-29-2023 Basophils/100 WBC (Bld) 0.2 % 0-1 [facility] Chloride [Moles/Vol] 109 mmol/L 98-107 [facility] Eosinophils/100 WBC (Bld) 0.1 % 0-5 [facility] Glucose [Mass/Vol] 140 mg/dL 74-106 [facility] Comment on above: Fasting Glucose resu lt greater than or equal to 126 mg/dL suggests DIABETES MELLITUS per A.D.A. criteria. Neutrophils (Bld) [#/Vol] 8.5 10*3/uL 2.0-7.7 [facility] Neutrophils/100 WBC (Bld) 88.1 % 47-70 [facility] Potassium [Moles/Vol] 3.5 mmol/L 3.5-5.1 [facility] Sodium [Moles/Vol] 143 mmol/L 136-145 [facility] WBC (Bld) [#/Vol] 9.6 10*3/uL 4.4-11.0 [facility] Blood erythrocytes count (nu mber/volume)Ordered By: Marcellus Barney on 11-29-2023 RBC (Bld) [#/Vol] 4.12 10*6/uL 4.2-5.4 [facility] Blood hemoglobin measurement (mass/volume)Ordered By: Marcellus Barney on 11-29-2023 Hemoglobin (Bld) [Mass/Vol] 12.8 g/dL 12.0-15.0 [facility] Blood lymphocytes/100 leukoc ytesOrdered By: Marcellus Barney on 11-29-2023 Lymphocytes/100 WBC (Bld) 7.1 % 19-41 [facility] Blood monocytes/100 leukocyt esOrdered By: Marcellus Barney on 11-29-2023 Monocytes/100 WBC (Bld) 4.1 % 0-10 [facility] Blood platelet mean volumeOr dered By: Marcellus Barney on 11-29-2023 Platelet mean volume (Bld) [Entitic vol] 10.2 fL 6.2-12.0 [facility] CBC AND ELECTRONIC DIFFon Abs Baso Auto < Normal 0.00-0.15 [facility] Comment on above: Performed By: #### [facility] #### [facility] (DEFAULT) [address] [address] Abs Eos Auto < Normal 0.00-0.42 [facility] Comment on above: Performed By: #### [facility] #### [facility] (DEFAULT) [address] [place] [address] Basophils/100 WBC (Bld) 0.1 % Normal [facility] Comment on above: Performed By: #### H EMOGC #### [facility] (DEFAULT) [address] [place] [address] DIFF STATUS Electronic Differential Normal [facility] Comment on above: Performed By: #### H EMOGC #### [facility] (DEFAULT) [address] [place] [address] Eosinophils/100 WBC (Bld) 0.0 % Normal [facility] Comment on above: Performed By: #### H EMOGC #### [facility] (DEFAULT) [address] [place] [address] Hematocrit (Bld) [Volume fraction] 45.8 % High 34.9-44.3 [facility] Comment on above: Performed By: #### H EMOGC #### [facility] (DEFAULT) [address] [place] [address] Hemoglobin (Bld) [Mass/Vol] 14.7 g/dL Normal 11.4-15.2 [facility] Comment on above: Performed By: #### H EMOGC #### [facility] (DEFAULT) [address] [place] [address] Immature Grans % 0.5 % Normal [facility] Comment on above: Performed By: #### H EMOGC #### [facility] (DEFAULT) [address] [place] [address] Immature Grans Absolute 0.07 K/uL Normal <=0.08 [facility] Comment on above: Performed By: #### H EMOGC #### [facility] (DEFAULT) [address] [place] [address] Lymphocytes (Bld) [#/Vol] 1.22 10*3/uL Normal 1.16-3.51 [facility] Comment on above: Performed By: #### H EMOGC #### [facility] (DEFAULT) [address] [place] [address] Lymphocytes/100 WBC (Bld) 8.9 % Normal [facility] Comment on above: Performed By: #### H EMOGC #### [facility] (DEFAULT) [address] [address] MCV (RBC) [Entitic vol] 95.2 fL Normal 79.6-97.7 [facility] Comment on above: Performed By: #### H EMOGC #### [facility] (DEFAULT) [address] [address] Mean Cell Hgb 30.6 pg Normal 25.9-33.9 [facility] Comment on above: Performed By: #### H EMOGC #### [facility] (DEFAULT) [address] [address] Mean Cell Hgb Conc 32.1 g/dL Normal 31.4-35.9 [facility] Comment on above: Performed By: #### H EMOGC #### [facility] (DEFAULT) [address] [address] Monocytes (Bld) [#/Vol] 0.55 10*3/uL Normal 0.22-0.87 [facility] Comment on above: Performed By: #### H EMOGC #### [facility] (DEFAULT) [address] [address] Monocytes/100 WBC (Bld) 4.0 % Normal [facility] Comment on above: Performed By: #### H EMOGC #### [facility] (DEFAULT) [address] [address] Nucleated RBC 0.0 /100 WBC Normal <=0.2 [facility] Comment on above: Performed By: #### H EMOGC #### [facility] (DEFAULT) [address] [address] Platelet mean volume (Bld) [Entitic vol] 10.5 fL Normal 8.5-12.2 [facility] Comment on above: Performed By: #### H EMOGC #### [facility] (DEFAULT) [address] [place] [address] Platelets (Bld) [#/Vol] 242 10*3/uL Normal 150-393 [facility] Comment on above: Performed By: #### H EMOGC #### [facility] (DEFAULT) [address] [place] [address] RBC (Bld) [#/Vol] 4.81 10*6/uL Normal 3.91-5.04 [facility] Comment on above: Performed By: #### H EMOGC #### [facility] (DEFAULT) [address] [place] [address] RBC Distribution 12.4 % Normal 10.8-14.9 [facility] Comment on above: Performed By: #### H EMOGC #### [facility] (DEFAULT) [address] [place] [address] Segs + Bands Auto 86.5 % Normal [facility] Comment on above: Performed By: #### H EMOGC #### [facility] (DEFAULT) [address] [place] [address] Segs + Bands,Absolute Auto 11.88 K/uL High 1.64-7.28 [facility] Comment on above: Performed By: #### H EMOGC #### [facility] (DEFAULT) [address] [place] [address] WBC (Bld) [#/Vol] 13.74 10*3/uL High 3.99-11.19 [facility] Comment on above: Performed By: #### H EMOGC #### [facility] (DEFAULT) [address] [place] [address] CHM 7 - EDon 11-29-2023 Anion gap [Moles/Vol] 13 mmol/L Normal 7-17 [facility] Comment on above: Performed By: #### I CA #### [facility] (DEFAULT) [address] [place] [address] Chloride [Moles/Vol] 106 mmol/L Normal 98-108 [facility] Comment on above: Performed By: #### I CA #### [facility] (DEFAULT) [address] [place] [address] CO2 [Moles/Vol] 25 mmol/L Normal 21-31 [facility] Comment on above: Performed By: #### I CA #### [facility] (DEFAULT) [address] [place] [address] Creatinine [Mass/Vol] 0.71 mg/dL Normal 0.50-1.20 [facility] Comment on above: Performed By: #### I CA #### [facility] (DEFAULT) [address] [place] [address] GFR/1.73 sq M.predicted among non-blacks MDRD (S/P/Bld) [Vol rate/Area] 87 mL/min/{1.73_m2} Normal >=60 [facility] Comment on above: Result Comment: Repo rted eGFR is based on the CKD-EPI 2020 equation using creatinine, age, and sex. Performed By: #### I CA #### [facility] (DEFAULT) [address] [place] [address] Glucose [Mass/Vol] 117 mg/dL High 70-99 [facility] Comment on above: Performed By: #### I CA #### [facility] (DEFAULT) [address] [place] [address] Osmolality [Osmolality] 294 mosm/kg Normal 278-305 [facility] Comment on above: Performed By: #### I CA #### [facility] (DEFAULT) [address] [place] [address] Potassium [Moles/Vol] 3.9 mmol/L Normal 3.5-5.0 [facility] Comment on above: Performed By: #### I CA #### [facility] (DEFAULT) [address] [place] [address] Sodium [Moles/Vol] 140 mmol/L Normal 135-145 [facility] Comment on above: Performed By: #### I CA #### [facility] (DEFAULT) [address] [place] [address] Urea nitrogen [Mass/Vol] 14 mg/dL Normal 7-25 [facility] Comment on above: Performed By: #### I CA #### [facility] (DEFAULT) [address] [place] [address] Urea nitrogen/Creatinine [Mass ratio] 20 mg/mg Normal [facility] Comment on above: Performed By: #### I CA #### [facility] (DEFAULT) [address] [place] [address] [facility] 11-29-2023 CK [Catalytic activity/Vol] 82 U/L Normal 30-184 [facility] Comment on above: Performed By: #### I CA #### [facility] (DEFAULT) [address] [place] [address] CEREBRAL PERFUSION ANALYS Cirilo 11-29-2023 CT CEREBRAL PERFUSION ANALYSIS EXAM: CT CEREBRAL PERFUSION ANALYSIS, 11/29/2023 15:13 PM COMPARISON: No priors available for comparison. CLINICAL INDICATIONS: 78 years Female Neuro deficit, acute, stroke suspected; RELEVANT CLINICAL HISTORY: TECHNIQUE: A series of axial multislice computerized tomographic images of the brain are obtained following rapid bolus administration of contrast. FINDINGS: Examination is technically adequate. Viz.ai automated software assessment: Estimated infarct core (CBF<30%): 25 mL. Estimated penumbra (perfusion mismatch): 95 mL. Tmax >6s: 120 mL. Additional, notable findings on the syngo.via perfusion maps: There is a large cerebral perfusion defect involving the entire right MCA and lenticulostriate territories with prolongation of and mean transit time, etc. There is a known infarct core visible on noncontrast CT and showing diminished cerebral blood flow and volume in the basal ganglia. There is a very large ischemic penumbra. IMPRESSION: Large perfusion defect involving the right MCA and reticular striate territories. Completed infarct core in the basal ganglia with large volume of ischemic penumbra. Normal [facility] CT SPINE CERVICAL WITHOUT CO NTRASTon 11-29-2023 CT SPINE CERVICAL WITHOUT CONTRAST EXAM: CT SPINE CERVICAL WITHOUT CONTRAST, 11/29/2023 15:14 PM COMPARISON: No priors available for comparison. CLINICAL INDICATIONS: 78 years Female fall TECHNIQUE: A series of transaxial multislice computerized tomographic thin section source images are obtained with helical technique from clivus to upper thoracic spine without contrast. Reformats: Axial, sagittal, coronal. FINDINGS: Mild levoconvex curvature of the cervical spine. No significant listhesis. Vertebral bodies are normal in height. Prevertebral and other paraspinal soft tissues are within normal limits. Multilevel degenerative disc disease with intervertebral disc height loss and osteophytosis, most pronounced in the lower cervical spine. Skull base and craniocervical junction is within normal limits. Mild left foraminal narrowing at C3-C4. Mild bilateral foraminal narrowing at C4-C5. Mild right and moderate left foraminal narrowing at C5-C6. Mild right and moderate left foraminal narrowing at C6-C7. Mild right and severe left renal narrowing at C7-T1. Disc osteophyte complexes result in multilevel bony spinal stenosis most pronounced and moderate in degree at C5-C6, C6-C7 and C7-T1 IMPRESSION: 1. No acute fracture or traumatic malalignment. 2. Degenerative changes as above. I personally viewed and interpreted these images and I have reviewed and approved this report. Normal [facility] CT STROKE HEAD-STROKE ALERT ONLYon 11-29-2023 CT STROKE HEAD-STROKE ALERT ONLY EXAM: CT STROKE HEAD-STROKE ALERT ONLY, 11/29/2023 2:57 PM COMPARISON: Same day outside CT head and CTA brain CLINICAL INDICATIONS: 78 years Female Neuro deficit, acute, stroke suspected; RELEVANT CLINICAL HISTORY: TECHNIQUE: A series of transaxial computerized tomographic images are obtained from base of skull to vertex without intravenous contrast. Axial whole-head and thin section posterior fossa slices are provided. Reformats: Sagittal and coronal. FINDINGS: Loss of richardsno-white differentiation involving the right basal ganglia in the right lenticulostriate territory. No definite cortical infarction visible at this time. No acute intracranial hemorrhage is seen. No significant mass effect or midline shift. Moderate patchy periventricular white matter hypoattenuation is noted which is non-specific, but likely due to chronic small vessel ischemic changes. Ventricles are normal in size and configuration for patient age. Skull appears intact. Visualized orbits appear normal. Visualized paranasal sinuses are clear. IMPRESSION: Acute nonhemorrhagic infarct in the right basal ganglia lenticulostriate distribution. No significant intracranial mass effect. Findings were discussed with Ryley Licea at 3:06 PM on November 29, 2023. I personally viewed and interpreted these images and I have reviewed and approved this report. Normal [facility] Determination of erythrocyte mean corpuscular volume (MCV)Ordered By: Marcellus Barney on 11-29-2023 MCV (RBC) [Entitic vol] 93.0 fL 81-99 [facility] HEPATIC FUNCTION PANELon Albumin [Mass/Vol] 3.9 g/dL Normal 3.5-5.0 [facility] Comment on above: Performed By: #### I CA #### [facility] (DEFAULT) [address] [place] [address] ALP [Catalytic activity/Vol] 107 U/L Normal 32-126 [facility] Comment on above: Performed By: #### I CA #### [facility] (DEFAULT) [address] [place] [address] ALT [Catalytic activity/Vol] 6 U/L Low 9-48 [facility] Comment on above: Performed By: #### I CA #### [facility] (DEFAULT) [address] [place] [address] AST [Catalytic activity/Vol] 15 U/L Normal 10-39 [facility] Comment on above: Performed By: #### I CA #### [facility] (DEFAULT) [address] [place] [address] Bilirubin [Mass/Vol] 0.9 mg/dL Normal <1.5 [facility] Comment on above: Performed By: #### I CA #### [facility] (DEFAULT) [address] [place] [address] Bilirubin.indirect [Mass/Vol] 0.2 mg/dL Normal <0.3 [facility] Comment on above: Performed By: #### I CA #### [facility] (DEFAULT) [address] [place] [address] Protein [Mass/Vol] 7.3 g/dL Normal 6.4-8.3 [facility] Comment on above: Performed By: #### I CA #### [facility] (DEFAULT) [address] [place] [address] HIGH SENSITIVITY TROPONIN I - SINGLE ORDERon 11-29-2023 hs-Troponin I 110 ng/L High <34 [facility] Comment on above: Order Comment: Acute Coronary Syndrome (ACS): Initial Evaluation and Management:[email or web address] Performed By: #### I CA #### [facility] (DEFAULT) [address] [place] [address] Hematocrit Auto (Bld) [Volum e fraction]Ordered By: Marcellus Barney on 11-29-2023 Hematocrit (Bld) [Volume fraction] 38.3 % 37-47 [facility] INR in Blood by Coagulation assayOrdered By: Marcellus Barney on 11-29-2023 INR Coag (Bld) [Relative time] 1.0 {INR} [facility] Laboratory - Chemistry and C hemistry - challengeOrdered By: Marcellus Barney on 11-29-2023 CK [Catalytic activity/Vol] 55 U/L -192 [facility] CO2 [Moles/Vol] 28.0 mmol/L 21.0-32.0 [facility] Urea nitrogen/Creatinine [Mass ratio] 20.1 mg/mg 10-20 [facility] Laboratory - CoagulationOrde red By: Marcellus Barney on 11-29-2023 aPTT Coag (Bld) [Time] 26.2 s 24.1-36.2 [facility] PT Coag (PPP) [Time] 13.2 s 11.7-14.9 [facility] - Hematology and Cell countsOrdered By: Marcellus Barney on 11-29-2023 Erythrocyte distribution width (RBC) [Entitic vol] 42.1 fL 35.1-43.9 [facility] Erythrocyte distribution width (RBC) [Ratio] 12.4 % 11.6-14.6 [facility] Immature granulocytes/100 WBC (Bld) 0.400 % 0.0-0.9 [facility] Comment on above: IG% - Immature Granu locytes (promyelocytes, myelocytes and metamyelocytes) > 1% indicates that a LEFT SHIFT is Present. MCH (RBC) [Entitic mass] 31.1 pg 27.0-32.0 [facility] Nucleated RBC/100 WBC (Bld) [Ratio] 0 % 0-5 [facility] MCHC Auto (RBC) [Mass/Vol]Or dered By: Marcellus Barney on 11-29-2023 MCHC (RBC) [Mass/Vol] 33.4 g/dL 32-36 [facility] No Panel InformationOrdered By: Marcellus Barney on 11-29-2023 Estimated Creatinine Clearance Calc 71.25 ml/min [facility] Estimated GFR (MDRD) Amer 89 mL/min >60 [facility] Comment on above: GFR Calc Estimated GFR (MDRD) Non-Af Amer 74 mL/min >60 [facility] Comment on above: Non- GFR Calc Troponin I High Sensitivity 200 pg/mL 3.0-54.0 [facility] Comment on above: Critical Result(s) C alled at: 13:26:53 11/29/2023 by: David Genao. Jluis Vasques RN (ER). Results read back by same. Please Note: New Test Units and Gender Specific Reference Ranges. For more information see Policy Stat Procedure [place] High Sensitivity Troponin (TNIH) and attachments. PTINR-STROKEon 11-29-2023 INR Coag (PPP) [Relative time] 1.0 {INR} Normal 0.9-1.1 [facility] Comment on above: Performed By: #### M MYKEL ALLENM7 #### [facility] (DEFAULT) [address] [place] [address] PT Coag (PPP) [Time] 12.7 s Normal 11.9-14.2 [facility] Comment on above: Performed By: #### M ALEJANDRO CHM7 #### [facility] (DEFAULT) [address] [place] [address] PTTon 11-29-2023 aPTT Coag (Bld) [Time] 27.1 s Normal 24.0-34.3 [facility] Comment on above: Performed By: #### M MYKEL ALLENM7 #### [facility] (DEFAULT) [address] [place] [address] Platelets bldOrdered By: Marcellus Barney on 11-29-2023 Platelets (Bld) [#/Vol] 215 10*3/uL 150-450 [facility] Serum or plasma calcium christopher urement (mass/volume)Ordered By: Marcellus Barney on 11-29-2023 Calcium [Mass/Vol] 8.8 mg/dL 8.5-10.1 [facility] Serum or plasma creatinine m easurement (mass/volume)Ordered By: Marcellus Barney on 11-29-2023 Creatinine [Mass/Vol] 0.80 mg/dL 0.55-1.02 [facility] Comment on above: The validity of the calculated GFR & GFRAA in patients over 70 years has not been determined. Clinical correlation is essential. Serum or plasma urea nitroge n measurement (mass/volume)Ordered By: Marcellus Barney on 11-29-2023 Urea nitrogen [Mass/Vol] 16 mg/dL -18 [facility] Thin prep Papanicolaou smear with manual screeningOrdered By: Marcellusedward Barney on 11-29-2023 Thin prep Papanicolaou smear with manual screening 6 -15 [facility] Basophil percentageOrdered B y: Maxx Hawkins on 11-05-2023 Bilirubin [Mass/Vol] 1.30 mg/dL 0.20-1.00 [facility] Comment on above: For patients on eltr ombopag therapy, use of Dimension [place] TBIL is not recommended. Chloride [Moles/Vol] 110 mmol/L 98-107 [facility] Cholesterol [Mass/Vol] 216 mg/dL <200 [facility] Comment on above: <200 mg/dL Desirable 200-240 mg/dL Borderline >240 mg/dL High Risk Glucose [Mass/Vol] 98 mg/dL 74-106 [facility] Potassium [Moles/Vol] 4.1 mmol/L 3.5-5.1 [facility] Protein [Mass/Vol] 7.2 g/dL 6.4-8.2 [facility] Sodium [Moles/Vol] 144 mmol/L 136-145 [facility] Triglyceride [Mass/Vol] 98 mg/dL <[address] [facility] Comment on above: The drugs N-Acetylcy steine and Metamizole may falsely depress this assay.Serum Triglycerides Reference Interval Normal <150 mg/dL Borderline high 150 - 199 mg/dL High 200 - 499 mg/dL Very High > or = 500 mg/dL Laboratory - Chemistry and C hemistry - challengeOrdered By: Maxx Hawkins on 11-05-2023 ALP [Catalytic activity/Vol] 118 U/L 45-117 [facility] ALT [Catalytic activity/Vol] 18 U/L 13-56 [facility] CO2 [Moles/Vol] 29.0 mmol/L 21.0-32.0 [facility] Globulin (S) [Mass/Vol] 3.8 g/dL 2.2-4.2 [facility] Urea nitrogen/Creatinine [Mass ratio] 15.6 mg/mg 10-20 [facility] No Panel InformationOrdered By: Maxx Hawkins on 11-05-2023 Estimated GFR (MDRD) Amer 85 mL/min >60 [facility] Comment on above: GFR Calc Estimated GFR (MDRD) Non-Af Amer 70 mL/min >60 [facility] Comment on above: Non- GFR Calc Urine Microalbumin/Creatinine Ratio 16.6 mg/g CRE <30 [facility] Serum or plasma albumin christopher urement (mass/volume)Ordered By: Maxx Hawkins on 11-05-2023 Albumin [Mass/Vol] 3.4 g/dL 3.2-5.0 [facility] Serum or plasma albumin/glob ulin mass ratioOrdered By: Maxx Hawkins on 11-05-2023 Albumin/Globulin [Mass ratio] 0.9 {ratio} 0.9-2.4 [facility] Serum or plasma calcium christopher urement (mass/volume)Ordered By: Maxx Hawkins on 11-05-2023 Calcium [Mass/Vol] 9.1 mg/dL 8.5-10.1 [facility] Serum or plasma cholesterol in HDL measurement (mass/volume)Ordered By: Maxx Hawkins on 11-05-2023 Cholesterol in HDL [Mass/Vol] 52 mg/dL >40 [facility] Comment on above: The drugs N-Acetylcy steine and Metamizole may falsely depress this assay. Reference Range HDL <40 mg/dL Low HDL Cholesterol HDL >or= 60 mg/dL High HDL Cholesterol Serum or plasma cholesterol in VLDL measurement (mass/volume)Ordered By: Maxx Hawkins on 11-05-2023 Cholesterol in VLDL [Mass/Vol] 20 mg/dL 5-40 [facility] Serum or plasma creatinine m easurement (mass/volume)Ordered By: Maxx Hawkins on 11-05-2023 Creatinine [Mass/Vol] 0.83 mg/dL 0.55-1.02 [facility] Comment on above: The validity of the calculated GFR & GFRAA in patients over 70 years has not been determined. Clinical correlation is essential. Serum or plasma low density lipoprotein (LDL) cholesterol measurement (mass/volume)Ordered By: Maxx Hawkins on 11-05-2023 Cholesterol in LDL [Mass/Vol] 144 mg/dL 0-130 [facility] Serum or plasma urea nitroge n measurement (mass/volume)Ordered By: Maxx Hawkins on 11-05-2023 Urea nitrogen [Mass/Vol] 13 mg/dL 7-18 [facility] Thin prep Papanicolaou smear with manual screeningOrdered By: Maxx Hawkins on 11-05-2023 Thin prep Papanicolaou smear with manual screening 23 U/L 15-37 [facility] Thin prep Papanicolaou smear with manual screening 5 5-15 [facility] Thin prep Papanicolaou smear with manual screening 71.0 mg/L NO RANGE EST. [facility] Urine creatinine measurement (mass/volume)Ordered By: Maxx Hawkins on 11-05-2023 Creatinine (U) [Mass/Vol] 428.00 mg/dL NO RANGE EST. [facility] Whole blood hemoglobin A1c/t otal hemoglobin ratio (mass fraction)Ordered By: Maxx Hawkins on 11-05-2023 HbA1c (Bld) [Mass fraction] 5.0 % 3.8-5.6 [facility] Comment on above: Normal < 5.7 % Predi abetic 5.7 - 6.4 % Diabetic >or= 6.5 % Please note range changes. Absolute lymphocyte counton 07-23-2022 Lymphocytes Auto (Unsp spec) [#/Vol] 2.74 10*3/uL 0.83-4.51 [facility] Work Phone: Basophil percentageon 2021 Basophils/100 WBC (Bld) 0.7 % 0-1 [facility] Work Phone: Chloride [Moles/Vol] 106 mmol/L 98-107 [facility] Work Phone: Cholesterol [Mass/Vol] 202 mg/dL <200 [facility] Work Phone: Comment on above: <200 mg/dL Desirable 200-240 mg/dL Borderline >240 mg/dL High Risk Eosinophils/100 WBC (Bld) 2.4 % 0-5 [facility] Work Phone: Glucose [Mass/Vol] 108 mg/dL 74-106 [facility] Work Phone: Comment on above: Fasting Glucose resu lt from 100 to 125 mg/dL suggests IMPAIRED HOMEOSTASIS per A.D.A. criteria. Neutrophils (Bld) [#/Vol] 5.2 10*3/uL 2.0-7.7 [facility] Work Phone: Neutrophils/100 WBC (Bld) 58.5 % 47-70 [facility] Work Phone: Potassium [Moles/Vol] 3.4 mmol/L 3.5-5.1 [facility] Work Phone: Sodium [Moles/Vol] 141 mmol/L 136-145 [facility] Work Phone: Triglyceride [Mass/Vol] 144 mg/dL <199 [facility] Work Phone: Comment on above: The drugs N-Acetylcy steine and Metamizole may falsely depress this assay.Serum Triglycerides Reference Interval Normal <150 mg/dL Borderline high 150 - 199 mg/dL High 200 - 499 mg/dL Very High > or = 500 mg/dL WBC (Bld) [#/Vol] 8.9 10*3/uL 4.4-11.0 [facility] Work Phone: Blood erythrocytes count (nu mber/volume)on 07-23-2022 RBC (Bld) [#/Vol] 4.38 10*6/uL 4.2-5.4 [facility] Work Phone: Blood hemoglobin measurement (mass/volume)on 07-23-2022 Hemoglobin (Bld) [Mass/Vol] 13.7 g/dL 12.0-15.0 [facility] Work Phone: Blood lymphocytes/100 leukoc yteson 07-23-2022 Lymphocytes/100 WBC (Bld) 30.8 % 19-41 [facility] Work Phone: Blood monocytes/100 leukocyt eson 07-23-2022 Monocytes/100 WBC (Bld) 7.4 % 0-10 [facility] Work Phone: Blood platelet mean volumeon 07-23-2022 Platelet mean volume (Bld) [Entitic vol] 11.0 fL 6.2-12.0 [facility] Work Phone: Determination of erythrocyte mean corpuscular volume (MCV)on 07-23-2022 MCV (RBC) [Entitic vol] 94.7 fL 81-99 [facility] Work Phone: Hematocrit Auto (Bld) [Volum e fraction]on 07-23-2022 Hematocrit (Bld) [Volume fraction] 41.5 % 37-47 [facility] Work Phone: Laboratory - Chemistry and C hemistry - challengeon 07-23-2022 CO2 [Moles/Vol] 29.0 mmol/L 21.0-32.0 [facility] Work Phone: Urea nitrogen/Creatinine [Mass ratio] 22.1 mg/mg 10-20 [facility] Work Phone: Laboratory - Hematology and Cell countson 07-23-2022 Erythrocyte distribution width (RBC) [Entitic vol] 45.1 fL 35.1-43.9 [facility] Work Phone: Erythrocyte distribution width (RBC) [Ratio] 12.8 % 11.6-14.6 [facility] Work Phone: Immature granulocytes/100 WBC (Bld) 0.200 % 0.0-0.9 [facility] Work Phone: Comment on above: IG% - Immature Granu locytes (promyelocytes, myelocytes and metamyelocytes) > 1% indicates that a LEFT SHIFT is Present. MCH (RBC) [Entitic mass] 31.3 pg 27.0-32.0 [facility] Work Phone: Nucleated RBC/100 WBC (Bld) [Ratio] 0 % 0-5 [facility] Work Phone: MCHC Auto (RBC) [Mass/Vol]on 07-23-2022 MCHC (RBC) [Mass/Vol] 33.0 g/dL 32-36 [facility] Work Phone: No Panel Informationon 07-23 Estimated Creatinine Clearance Calc 37.26 ml/min [facility] Work Phone: Estimated GFR (MDRD) Amer 94 mL/min >60 [facility] Work Phone: Comment on above: GFR Calc Estimated GFR (MDRD) Non-Af Amer 77 mL/min >60 [facility] Work Phone: Comment on above: Non- GFR Calc Platelets bldon 07-23-2022 Platelets (Bld) [#/Vol] 218 10*3/uL 150-450 [facility] Work Phone: Serum or plasma calcium christopher urement (mass/volume)on 07-23-2022 Calcium [Mass/Vol] 9.1 mg/dL 8.5-10.1 [facility] Work Phone: Serum or plasma cholesterol in HDL measurement (mass/volume)on 07-23-2022 Cholesterol in HDL [Mass/Vol] 39 mg/dL >40 [facility] Work Phone: Comment on above: The drugs N-Acetylcy steine and Metamizole may falsely depress this assay. Reference Range HDL <40 mg/dL Low HDL Cholesterol HDL >or= 60 mg/dL High HDL Cholesterol Serum or plasma cholesterol in VLDL measurement (mass/volume)on 07-23-2022 Cholesterol in VLDL [Mass/Vol] 29 mg/dL 5-40 [facility] Work Phone: Serum or plasma creatinine m easurement (mass/volume)on 07-23-2022 Creatinine [Mass/Vol] 0.77 mg/dL 0.55-1.02 [facility] Work Phone: Comment on above: The validity of the calculated GFR & GFRAA in patients over 70 years has not been determined. Clinical correlation is essential. Serum or plasma low density lipoprotein (LDL) cholesterol measurement (mass/volume)on 07-23-2022 Cholesterol in LDL [Mass/Vol] 134 mg/dL 0-130 [facility] Work Phone: Serum or plasma urea nitroge n measurement (mass/volume)on 07-23-2022 Urea nitrogen [Mass/Vol] 17 mg/dL 7-18 [facility] Work Phone: Thin prep Papanicolaou smear with manual screeningon 07-23-2022 Thin prep Papanicolaou smear with manual screening 6 5-15 [facility] Work Phone: INR in Blood by Coagulation assayon 07-22-2022 INR Coag (Bld) [Relative time] 1.0 {INR} [facility] Work Phone: Laboratory - Coagulationon 0 07-22-2022 aPTT Coag (Bld) [Time] 25.8 s 24.1-36.2 [facility] Work Phone: PT Coag (PPP) [Time] 12.4 s 11.7-14.9 [facility] Work Phone: No Panel Informationon 07-22 Troponin I High Sensitivity 185 pg/mL 3.0-54.0 [facility] Work Phone: Comment on above: Critical Result(s) C alled at: 11:20:48 07/22/2022 by: Vonnie Loera to Raisa. Results read back by same. Please Note: New Test Units and Gender Specific Reference Ranges. For more information see Policy Stat Procedure [place] High Sensitivity Troponin (TNIH) and attachments. Basophil percentageon 2021 Bilirubin [Mass/Vol] 0.80 mg/dL 0.20-1.00 [facility] Work Phone: Comment on above: For patients on eltr ombopag therapy, use of Dimension [place] TBIL is not recommended. Chloride [Moles/Vol] 110 mmol/L 98-107 [facility] Work Phone: Cholesterol [Mass/Vol] 214 mg/dL <200 [facility] Work Phone: Comment on above: <200 mg/dL Desirable 200-240 mg/dL Borderline >240 mg/dL High Risk Glucose [Mass/Vol] 87 mg/dL 74-106 [facility] Work Phone: Potassium [Moles/Vol] 3.6 mmol/L 3.5-5.1 [facility] Work Phone: Protein [Mass/Vol] 6.9 g/dL 6.4-8.2 [facility] Work Phone: Sodium [Moles/Vol] 143 mmol/L 136-145 [facility] Work Phone: Triglyceride [Mass/Vol] 138 mg/dL <199 [facility] Work Phone: Comment on above: The drugs N-Acetylcy steine and Metamizole may falsely depress this assay.Serum Triglycerides Reference Interval Normal <150 mg/dL Borderline high 150 - 199 mg/dL High 200 - 499 mg/dL Very High > or = 500 mg/dL Laboratory - Chemistry and C hemistry - challengeon 05-17-2022 ALP [Catalytic activity/Vol] 111 U/L 45-117 [facility] Work Phone: ALT [Catalytic activity/Vol] 23 U/L 13-56 [facility] Work Phone: CO2 [Moles/Vol] 26.0 mmol/L 21.0-32.0 [facility] Work Phone: Globulin (S) [Mass/Vol] 3.7 g/dL 2.2-4.2 [facility] Work Phone: Urea nitrogen/Creatinine [Mass ratio] 16.8 mg/mg 10-20 [facility] Work Phone: No Panel Informationon 05-17 Estimated GFR (MDRD) Amer 93 mL/min >60 [facility] Work Phone: Comment on above: GFR Calc Estimated GFR (MDRD) Non-Af Amer 77 mL/min >60 [facility] Work Phone: Comment on above: Non- GFR Calc Urine Microalbumin/Creatinine Ratio 6.9 mg/g CRE <30 [facility] Work Phone: Serum or plasma albumin christopher urement (mass/volume)on 05-17-2022 Albumin [Mass/Vol] 3.2 g/dL 3.2-5.0 [facility] Work Phone: Serum or plasma albumin/glob ulin mass ratioon 05-17-2022 Albumin/Globulin [Mass ratio] 0.9 {ratio} 0.9-2.4 [facility] Work Phone: Serum or plasma calcium christopher urement (mass/volume)on 05-17-2022 Calcium [Mass/Vol] 9.0 mg/dL 8.5-10.1 [facility] Work Phone: Serum or plasma cholesterol in HDL measurement (mass/volume)on 05-17-2022 Cholesterol in HDL [Mass/Vol] 44 mg/dL >40 [facility] Work Phone: Comment on above: The drugs N-Acetylcy steine and Metamizole may falsely depress this assay. Reference Range HDL <40 mg/dL Low HDL Cholesterol HDL >or= 60 mg/dL High HDL Cholesterol Serum or plasma cholesterol in VLDL measurement (mass/volume)on 05-17-2022 Cholesterol in VLDL [Mass/Vol] 28 mg/dL 5-40 [facility] Work Phone: Serum or plasma creatinine m easurement (mass/volume)on 05-17-2022 Creatinine [Mass/Vol] 0.77 mg/dL 0.55-1.02 [facility] Work Phone: Comment on above: The validity of the calculated GFR & GFRAA in patients over 70 years has not been determined. Clinical correlation is essential. Serum or plasma low density lipoprotein (LDL) cholesterol measurement (mass/volume)on 05-17-2022 Cholesterol in LDL [Mass/Vol] 142 mg/dL 0-130 [facility] Work Phone: Serum or plasma urea nitroge n measurement (mass/volume)on 05-17-2022 Urea nitrogen [Mass/Vol] 13 mg/dL 7-18 [facility] Work Phone: Thin prep Papanicolaou smear with manual screeningon 05-17-2022 Thin prep Papanicolaou smear with manual screening 25 U/L 15-37 [facility] Work Phone: Thin prep Papanicolaou smear with manual screening 7 5-15 [facility] Work Phone: Thin prep Papanicolaou smear with manual screening 25.0 mg/L NO RANGE EST. [facility] Work Phone: Urine creatinine measurement (mass/volume)on 05-17-2022 Creatinine (U) [Mass/Vol] 363.00 mg/dL NO RANGE EST. [facility] Work Phone: Whole blood hemoglobin A1c/t otal hemoglobin ratio (mass fraction)on 05-17-2022 HbA1c (Bld) [Mass fraction] 5.6 % 3.8-5.6 [facility] Work Phone: Comment on above: Normal < 5.7 % Predi abetic 5.7 - 6.4 % Diabetic >or= 6.5 % Please note range changes. Vital Signs Date Time Vital Sign Value Performing Clinician Facility 12-21-2023 08:46-0500 Diastolic blood pressure 72 mm[Hg] Sammy Ewing MD Work Phone: [facility] 12-21-2023 08:46-0500 Heart rate 63 /min Sammy Ewing MD Work Phone: [facility] 12-21-2023 08:46-0500 SaO2% (BldA) [Mass fraction] 98 % Sammy Ewing MD Work Phone: [facility] 12-21-2023 08:46-0500 Systolic blood pressure 139 mm[Hg] Sammy Ewing MD Work Phone: [facility] 12-21-2023 07:17-0500 Body temperature 98.01 [degF] Sammy Ewing MD Work Phone: [facility] 12-21-2023 07:17-0500 Respiratory rate 18 /min Sammy Ewing MD Work Phone: [facility] 12-18-2023 06:14-0500 Body mass index (BMI) [Ratio] 36 kg/m2 Sammy Ewing MD Work Phone: [facility] 12-18-2023 06:14-0500 Body weight 89.27 kg Sammy wEing MD Work Phone: [facility] 11-30-2023 09:00-0500 Body height 157.5 cm Sammy Ewing MD Work Phone: [facility] 11-29-2023 13:45-0500 Diastolic blood pressure 73 mm[Hg] [facility] 11-29-2023 13:45-0500 Heart rate 54 /min [facility] 11-29-2023 13:45-0500 Respiratory rate 18 /min [facility] 11-29-2023 13:45-0500 SaO2% (BldA) [Mass fraction] 98 % [facility] 11-29-2023 13:45-0500 Systolic blood pressure 183 mm[Hg] [facility] 11-29-2023 13:17-0500 Body height 165.1 cm [facility] 11-29-2023 13:17-0500 Body mass index (BMI) [Ratio] 40 kg/m2 [facility] 11-29-2023 13:17-0500 Body weight 109.2 kg [facility] 11-29-2023 12:18-0500 Body temperature 97.9 [degF] [facility] 07-23-2022 10:00-0400 Body temperature 97.8 [degF] DO [facility] Work Phone: [facility] Work Phone: 07-23-2022 10:00-0400 Diastolic blood pressure 72 mm[Hg] DO [facility] Work Phone: [facility] Work Phone: 07-23-2022 10:00-0400 Heart rate 73 /min DO [facility] Work Phone: [facility] Work Phone: 07-23-2022 10:00-0400 Respiratory rate 16 /min DO Maxx Ross Work Phone: [facility] Work Phone: 07-23-2022 10:00-0400 SaO2% (BldA) [Mass fraction] 96 % DO [facility] Work Phone: [facility] Work Phone: 07-23-2022 10:00-0400 Systolic blood pressure 143 mm[Hg] DO Maxx Hawkins Work Phone: [facility] Work Phone: 07-23-2022 08:51-0400 Body height 157.48 cm DO Maxx Hawkins Work Phone: [facility] Work Phone: 07-23-2022 08:51-0400 Body weight 90.6 kg DO Maxx Hawkins Work Phone: [facility] Work Phone: 07-23-2022 04:20-0400 Body mass index (BMI) [Ratio] 36.5 kg/m2 DO Maxx Hawkins Work Phone: [facility] Work Phone: Encounters Encounter Date Encounter Type Care Provider Facility Start: 04-15-2025 ambulatory Maxx Walkeri ty:[facility] Start: 10-13-2024 End: 10-13-2024 ambulatory Santo PEÑALOZA Facility:[facility] Start: 02-29-2024 End: 02-29-2024 ambulatory [facility] Work Phone: Start: 02-29-2024 End: 02-29-2024 Departed Referred [facility] Start: 02-20-2024 End: 02-20-2024 ambulatory [facility] Work Phone: Start: 02-20-2024 End: 02-20-2024 Departed Referred [facility] Start: 02-14-2024 End: 02-14-2024 ambulatory [facility] Work Phone: Start: 02-14-2024 End: 02-14-2024 Departed Referred [facility] Start: 02-14-2024 Registered Referred [facility] Start: 02-07-2024 End: 02-07-2024 ambulatory [facility] Work Phone: Start: 02-07-2024 End: 02-07-2024 Departed Referred [facility] Start: 02-01-2024 End: 02-01-2024 ambulatory [facility] Work Phone: Start: 02-01-2024 End: 02-01-2024 Departed Referred [facility] Start: 01-25-2024 End: 01-25-2024 ambulatory [facility] Work Phone: Start: 01-25-2024 End: 01-25-2024 Departed Referred [facility] Start: 11-30-2023 Evaluation and management of inpatient MAXX HAWKINS Facility:[facility] Start: 11-30-2023 End: 11-30-2023 Evaluation and management of inpatient [facility] Outside Imaging Ct Scan So Outside Imaging Second Opinion Start: 11-29-2023 Evaluation and management of inpatient SANTO DUMONT Facility:[facility] Start: 11-29-2023 End: 12-21-2023 Evaluation and management of inpatient Sammy Ewing MD Work Phone: [id number] Start: 11-29-2023 End: 11-29-2023 Emergency department patient visit [facility] Work Phone: Start: 11-05-2023 End: 11-05-2023 ambulatory [facility] Work Phone: Start: 11-05-2023 End: 11-05-2023 Patient encounter procedure [facility] Start: 07-23-2022 Non-patient / Non-visit DO Jamal Hawkins Work Phone: [facility] Start: 07-22-2022 Non-patient / Non-visit DO Jamal Jaramilloer Work Phone: [facility] Start: 07-22-2022 End: 07-23-2022 Evaluation and management of inpatient DO Maxx Jaramilloer Work Phone: [facility] Start: 07-22-2022 End: 07-23-2022 observation encounter DO Maxx Hawkins Work Phone: [facility] Work Phone: Start: 05-17-2022 End: 05-17-2022 Patient encounter procedure [facility] Procedures Date Procedure Procedure Detail Performing Clinician Start: 12-21-2023 Assay of magnesium Cameron Desouza Abukwiek [employer] Work Phone: Start: 12-19-2023 Creatinine blood Felix Desouza Abwiek [employer] CONT[employer] TE[employer]TER Work Phone: Start: 12-19-2023 Blood count platelet automated Demond James [employer]LECT[employer] CONT[employer] TE[employer]TER Work Phone: Start: 12-18-2023 CARDIAC RHYTHM (SCANNED) Other Other Start: 12-18-2023 End: 12-18-2023 Egd transoral biopsy single/multiple Jaleesa Shah MD Work Phone: Start: 12-18-2023 Assay of magnesium Cameron Desouza Abukwiek [employer]ICAL CONT[employer] TE[employer]TER Work Phone: Start: 12-17-2023 Duplex scan extracra nial art compl bi study Felix Desouza Abukwiek ELECT[employer]ICAL CONT[employer]UITY TE[employer]TER Work Phone: Start: 12-17-2023 FLEXIBLE ENDOSCOPIC EVALUATION OF SWALLOWING Ryley Licea ELECTRICAL CONT[employer]UITY TESTER-[employer]LLAR [employer]TER Work Phone: Start: 12-17-2023 Assay of magnesium David Mohamud ELECT[employer]ICAL [employer]ITY TE[employer]LLAR [employer]TER Work Phone: Start: 12-16-2023 Assay of magnesium Toñitoe lars Khoury Jacob [employer]LECTRICAL CONT[employer]ITY TE[employer]AR [employer]TER Work Phone: Start: 12-15-2023 Assay of magnesium Nase rin M Jacob ELECT[employer]ICAL CONT[employer] TE[employer]TER Work Phone: Start: 12-14-2023 Assay of magnesium Nase rin M Jacob ELECT[employer]ICAL [employer]ITY TE[employer]TER Work Phone: Start: 12-13-2023 Ct abdomen & pelvis w/contrast material Ryley A Vinayak [employer] TE[employer] Work Phone: Start: 12-13-2023 Assay of magnesium Nase lars James [employer] TE[employer] Work Phone: Start: 12-12-2023 Radiologic exam abdo men 1 view Haris Talaveradav [employer]LECTRICAL [employer] TE[employer]TER Work Phone: Start: 12-12-2023 INTERVENTIONAL UPPER ENDOSCOPY Ada Claudio MD Work Phone: Start: 12-12-2023 Assay of magnesium Nase lars Khoury Jacob [employer]ICAL [employer]ITY TE[employer]TER Work Phone: Start: 12-11-2023 Assay of magnesium Nase lars James [employer]LECTRICAL CONT[employer]ITY TE[employer]TER Work Phone: Start: 12-10-2023 Glucose measurement, blood Tejal Aldana MD Work Phone: Start: 12-10-2023 Assay of magnesium Toñitoe lars James [employer]LECTRICAL [employer]UITY TE[employer]TER Work Phone: Start: 12-09-2023 Assay of magnesium Nase lars James ELECTRICAL CONT[employer]UITY TE[employer]TER Work Phone: Start: 12-08-2023 CONTINUOUS CARDIAC MONITORING STRIP Other Other Start: 12-08-2023 Assay of magnesium Nase lars Khoury Jacob [employer]RICAL [employer]ITY TE[employer]TER Work Phone: Start: 12-07-2023 Dup-scan xtr veins c omplete bilateral study Haris Talaveradav ELECTRICAL CONT[employer]ITY TE[employer]TER Work Phone: Start: 12-07-2023 Assay of magnesium Nase rin Iraida Jacob ELECTRICAL [employer]UITY TE[employer]TER Work Phone: Start: 12-06-2023 Culture bacterial bl ood aerobic w/id isolates Josh MORALES Work Phone: Start: 12-06-2023 CONTINUOUS CARDIAC MONITORING STRIP Other Other Start: 12-06-2023 Assay of phosphorus inorganic Christian Powers MD Work Phone: Start: 12-06-2023 End: 12-06-2023 Culture bacterial blood aerobic w/id isolates Haris Clementsv [employer]ICAL [employer] TE[employer]TER Work Phone: Start: 12-06-2023 Radiologic exam abdo men 1 view Jorge R Hays DO Work Phone: Start: 12-06-2023 End: 12-06-2023 Radiologic exam abdomen 1 view Jorge R Hays DO Work Phone: Start: 12-06-2023 Assay of magnesium Isaura James [employer]ICAL [employer] TE[employer]TER Work Phone: Start: 12-05-2023 Radiologic exam abdo men 1 view Hong Genao MD Work Phone: Start: 12-05-2023 Radiologic exam ches t single view Hong Genao MD Work Phone: Start: 12-05-2023 Ct angiography head w/contrast/noncontrast Candido Ball MD Work Phone: Start: 12-05-2023 Assay of magnesium Isaura James ELECTR[employer] TE[employer]TER Work Phone: Start: 12-04-2023 Culture bacterial bl ood aerobic w/id isolates Candido Ball MD Work Phone: Start: 12-04-2023 Sodium serum plasma or whole blood Vera Dumont ELECTRICAL [employer]ITY TE[employer]TER Work Phone: Start: 12-03-2023 Assay of magnesium Isaura James [employer]LECTRICAL CONT[employer]UITY TE[employer]TER Work Phone: Start: 12-03-2023 Sodium serum plasma or whole blood Vera Dumont ELECTRICAL CONT[employer]ITY TE[employer]TER Work Phone: Start: 12-03-2023 Sodium serum plasma or whole blood Vera Dumont ELECTRICAL CONT[employer]ITY TE[employer]TER Work Phone: Start: 12-03-2023 Electrolyte panel Van Dumont ELECTRICAL CONTINUITY TE[employer]TER Work Phone: Start: 12-03-2023 Ct head/brain w/o co ntrast material Demond James ELECTRICAL CONTINUITY TE[employer]TER Work Phone: Start: 12-02-2023 Assay of magnesium Isaura James ELECTRICAL CONT[employer]UITY TESTER-[employer]TER Work Phone: Start: 12-02-2023 Iadna s aureus ampli fied probe tq Demond James ELECTRICAL CONTINUITY TE[employer]LLAR [employer]TER Work Phone: Start: 12-02-2023 Electrolyte panel Van Dumont ELECTRICAL CONTINUITY TE[employer]LL[employer]TER Work Phone: Start: 12-02-2023 Radiologic exam ches t single view Vera Dumont ELECTRICAL CONTINUITY TE[employer]TER Work Phone: Start: 12-02-2023 BLOOD CULTURE IDENTIFICATION PANEL Vera Dumont ELECTRICAL CONT[employer]UITY TESTER-[employer]LLAR [employer]TER Work Phone: Start: 12-02-2023 End: 12-02-2023 Culture bacterial blood aerobic w/id isolates Vera Dumont ELECTRICAL CONTINUITY TESTER-[employer]TER Work Phone: Start: 12-02-2023 EXTRA MICRO Vera Dumont ELECTRICAL CONTINUITY TESTER-[employer]TER Work Phone: Start: 12-02-2023 URINALYSIS REFLEX TO CULTURE Vera Dumont ELECTRICAL CONTINUITY TESTER-[employer]LLAR [employer]TER Work Phone: Start: 12-02-2023 End: 12-02-2023 Assay of magnesium Demond James [employer]LECTRICAL CONTINUITY TESTER[employer]TER Work Phone: Start: 12-02-2023 End: 12-02-2023 EXTRA MINT GREEN TOP Christian Powers MD Work Phone: Start: 12-02-2023 EXTRA TUBES Christian Powers MD Work Phone: Start: 12-01-2023 Ct head/brain w/o co ntrast material Barbara Patterson DO Start: 12-01-2023 Creatinine blood Zeny Licea APRN-COLLAR SETTER Work Phone: Start: 12-01-2023 Radiologic exam abdo men 1 view Barbara Patterson DO Start: 11-30-2023 Mri brain brain stem w/o contrast material Ryley Licea APRN-COLLAR SETTER Work Phone: Start: 11-30-2023 Ct head/brain w/o co ntrast material Candido Ball MD Work Phone: Start: 11-30-2023 Assay of troponin quantitative Rabia Enriquez MD Work Phone: Start: 11-30-2023 End: 11-30-2023 Ct head/brain w/o contrast material Rabia Enriquez MD Work Phone: Start: 11-30-2023 Echo tthrc r-t 2d w/wom-mode compl spec&colr d Ryley Licea APRN-COLLAR SETTER Work Phone: Start: 11-30-2023 EXTRA MICRO Barbara R Clementina melara DO Start: 11-30-2023 URINALYSIS REFLEX TO CULTURE Barbara Roberta Patterson DO Start: 11-30-2023 Urnls dip stick/tabl et reagent auto microscopy Barbara Roberta Cartyni DO Start: 11-30-2023 Radiologic exam abdo men 1 view Barbara Cartyni DO Start: 11-30-2023 Ecg routine ecg w/le ast 12 lds trcg only w/o i&r Ryleyrubén Licea APRN-COLLAR SETTER Work Phone: Start: 11-30-2023 Hemoglobin glycosylated a1c Ryley Licea APRN-COLLAR SETTER Work Phone: Start: 11-30-2023 End: 11-30-2023 Hepatic function panel Ryley Walker Adrielstevie BUTLERN-COLLAR SETTER Work Phone: Start: 11-30-2023 Radiologic exam abdo men 1 view Barbara Patterson DO Start: 01-11-2024 Glucose measurement, blood Christian Powers MD Work Phone: Start: 11-29-2023 End: 11-29-2023 Prim prq trluml mchnl thrmbc n-cor n-icra 1st Tom Clark MD Work Phone: Start: 11-29-2023 End: 11-29-2023 Slctv cath intrnl carotid art angio intrcrnl art Tom Clark MD Work Phone: Start: 11-29-2023 End: 11-29-[address] w/blood flow&volume Ryley Walker Vinayak ELECTRICAL CONTINUITY TESTER-COLLAR SETTER Work Phone: Start: 11-29-2023 Ecg routine ecg w/le ast 12 lds trcg only w/o i&r Rom Stewart MD Work Phone: Start: 11-29-2023 CBC AND ELECTRONIC DIFF Rom Stewart MD Work Phone: Start: 11-29-2023 Complete blood count with white cell differential, automated Rom Stewart MD Work Phone: Start: 11-29-2023 Creatine kinase total R wolf Stewart MD Work Phone: Start: 11-29-2023 GOLD TOP TUBE Rom brown MD Work Phone: Start: 11-29-2023 Hepatic function panel Rom Stewart MD Work Phone: Start: 11-29-2023 LAVENDER TOP TUBE Rom Stewart MD Work Phone: Start: 11-29-2023 LT BLUE TOP TUBE Rom Stewart MD Work Phone: Start: 11-29-2023 MINT GREEN TOP TUBE Dwain Stewart MD Work Phone: Start: 11-29-2023 RAINBOW DRAW Rom ruth MD Work Phone: Start: 11-29-2023 Ct head/brain w/o co ntrast material Ryley Licea ELECTRICAL CONTINUITY TESTER-COLLAR SETTER Work Phone: Start: 11-29-2023 Glucose measurement, blood Christian Powers MD Work Phone: Start: 11-29-2023 Plain chest X-ray Start: 11-29-2023 CT angiography of he ad and neck Start: 11-29-2023 CT of head without contrast Start: 07-22-2022 MRI of brain without contrast DO Maxx Choudharynger Work Phone: Start: 07-22-2022 CT of head without contrast DO Maxx Choudharynger Work Phone: Start: 07-22-2022 Plain chest X-ray DO Aiden Choudharynger Work Phone: Plan of Treatment Date Care Activity Detail Author Start: 07-20-2024 COVID-19 VACCINE () COVID-19 VACCINE () [facility] Start: 07-20-2024 Influenza vaccination INFLUENZA VACCINE (#1) [facility] Start: 02-04-2024 End: 02-04-2024 ambulatory [facility]rological [facility] Start: 12-19-2023 End: 12-12-2024 Cardiac telemetry [facility] Start: 11-29-2023 Oxygen therapy [facility] Start: 11-29-2023 End: 11-29-2023 [facility] Start: 07-20-2023 Influenza vaccination [facility] Start: 07-20-2023 [facility] Start: 05-17-2023 Screening for malignant neoplasm of colon [facility] Start: 07-23-2022 Patient discharge [facility] Work Phone: Start: 07-22-2022 [facility] Work Phone: Start: 07-22-2022 Following clinical pathway protocol [facility] Work Phone: Start: 07-22-2022 Assessment of risk of venous thromboembolism [facility] Work Phone: Start: 07-22-2022 Cardiac monitoring [facility] Work Phone: Start: 07-22-2022 Catheterization of vein [facility] Work Phone: Start: 07-22-2022 Continuous pulse oximetry [facility] Work Phone: Start: 07-22-2022 Elevation of head of bed [facility] Work Phone: Start: 07-22-2022 Exercises [facility] Work Phone: Start: 07-22-2022 Implementation of planned interventions [facility] Work Phone: Start: 07-22-2022 Insertion of catheter into peripheral vein [facility] Work Phone: Start: 07-22-2022 Measuring intake and output [facility] Work Phone: Start: 07-22-2022 Notification of physician [facility] Work Phone: Start: 07-22-2022 Oxygen therapy [facility] Work Phone: Start: 07-22-2022 Providing care according to standard [facility] Work Phone: Start: 07-22-2022 Referral to occupational therapist [facility] Work Phone: Start: 07-22-2022 Referral to service [facility] Work Phone: Start: 07-22-2022 Speech therapy assessment [facility] Work Phone: Start: 07-22-2022 Tobacco use cessation education [facility] Work Phone: Start: 07-22-2022 [facility] Work Phone: Start: 07-22-2022 Admission procedure [facility] Work Phone: Start: 07-22-2022 Patient referral to dietitian [facility] Work Phone: Start: 03-30-2010 Screening for malignant neoplasm of breast [facility] Start: 2005 RSV VACCINE (1 - 1-dose 60+ series) RSV VACCINE (1 - 1-dose 60+ series) [facility] Start: 1966 Screening for malignant neoplasm of cervix [facility] Start: 1964 Third diphtheria, tetanus and acellular pertussis (DTaP) vaccination [facility] Start: 1945 Hepatitis C screening [facility] Start: 1945 Screening for osteoporosis [facility] Start: 1945 Tetanus vaccination [facility] End: 11-29-2023 FLUORO IMAGING FOR NEURO ENDOVASCULAR [facility] Work Phone: Patient referral [facility] Work Phone: Immunizations Immunization Date Immunization Notes Care Provider Fa [facility] 09-15-2021 Covid (Moderna) DO Maxx rehman Work Phone: [facility] 09-15-2021 influenza virus vaccine, unspecified formulation [facility] Outside Imaging Ct Scan So [facility] 07-20-2021 influenza, high dose seasonal, preservative-free DO Maxx Hawkins Work Phone: [facility] 02-17-2021 Covid (Moderna) DO Maxx rehman Work Phone: [facility] 01-20-2021 Covid (Moderna) DO Maxx rehman Work Phone: [facility] 09-23-2014 Influenza virus vaccine [facility] 09-19-2010 Pneumococcal Vaccine [facility] Work Phone: 09-19-2010 pneumococcal vaccine , unspecified formulation [facility] Payers Date Payer Category Payer Self-pay [id number] 2023 Medicare [id number] 2012 Private Health Insurance 101 [id number] 1945 Unknown [id number] 1945 Unknown [id number] Unknown [id number] Unknown [id number] Social History Date Type Detail Facility Start: 06-27-2021 End: 11-29-2023 Tobacco smoking status NHIS Unknown if ever smoked [facility] Start: 10-24-2014 None [facility] Start: 10-24-2014 Spouse/ Signif icant Other [facility] Start: 10-24-2014 Non-smoker [facility] Start: 1945 Sex Assigned At Female [facility] Start: 12-13-2023 Tobacco smoking status NHIS Never smoked tobacco [facility] Start: 12-19-2023 History of Social function [facility] Start: 12-19-2023 Tobacco use panel [facility] Start: 1945 Sex Assigned At [facility] NEGATED: Highlighted rowStart: NINF History of tobacco use Passive smoker [facility] Medical Equipment Procedure Code Equipment Code Equipment Origin al Text Equipment Identifier Dates [id number] Start: 11-29-2023 Goals Date Patient Goal Desired Activity /State Functional Status Date Assessment Result Facility 07-23-2022 Functional status Patient Activity Chair [facility] Work Phone: 07-23-2022 Functional status Activity Abili ty Standby Assist [facility] Work Phone: 07-22-2022 Functional status None [facility] Work Phone: Mental Status Date Assessment Result Facility 11-29-2023 Cognitive function Awake;Alert [facility] Work Phone: 07-23-2022 Cognitive function Voice/Name [facility] Work Phone: Clinical Notes 11-29-2023 to 12-21-2023 Nursing Notes - Nori Hendrix RN - 12/21/2023 12:20 PM ESTNursing Notes - Nori Hendrix RN - 12/21/2023 11:49 AM ESTTreatment Plan - Ann Foster RN - 12/21/2023 10:27 AM ESTDischarge Instructions Note Date & Type Note Facility 12-21-2023 Miscellaneous Notes Report called to [facility]. All questions and concerns addressed about this patient at this time and all paperwork faxed to them as well. Peripheral IV removed per policy and external lunchroom monitor box sent with transport team. Report also provided to transportation service. Stroke patient education has been reviewed and all required elements are complete and personalized. Care plan documentation complete and patient adequate for discharge. Next dose medication details have been added to the AVS as appropriate. Images from the original note were not included. [employer] BodyGuardian Mini+ placed on patient. Education provided and all questions answered. Instructions added to AVS and updated bedside RN. Ann Foster, BSN, RN Transitions of Care Nurse [facility] [place] [address] Office [email or web address] Problem: Patient Care Overview Goal: Plan of Care Review Outcome: Adequate for Discharge Goal: Individualization & Mutuality Outcome: Adequate for Discharge Goal: Discharge Needs Assessment Outcome: Adequate for Discharge Goal: Interdisciplinary Rounds/Family Conf Outcome: Adequate for Discharge Problem: Stroke (Ischemic) (Adult) Goal: Signs and Symptoms of Listed Potential Problems Will be Absent, Minimized or Managed (Stroke) Description: Signs and symptoms of listed potential problems will be absent, minimized or managed by discharge/transition of care (reference Stroke (Ischemic) (Adult) CPG). Outcome: Adequate for Discharge Problem: Patient Care Overview Goal: Plan of Care Review Outcome: Progressing Toward Goal Goal: Individualization & Mutuality Outcome: Progressing Toward Goal Goal: Discharge Needs Assessment Outcome: Progressing Toward Goal Goal: Interdisciplinary Rounds/Family Conf Outcome: Progressing Toward Goal Problem: Stroke (Ischemic) (Adult) Goal: Signs and Symptoms of Listed Potential Problems Will be Absent, Minimized or Managed (Stroke) Description: Signs and symptoms of listed potential problems will be absent, minimized or managed by discharge/transition of care (reference Stroke (Ischemic) (Adult) CPG). Outcome: Progressing Toward Goal Problem: Dysphagia (Adult) Goal: Identify Related Risk Factors and Signs and Symptoms Description: Related risk factors and signs and symptoms are identified upon initiation of Human Response Clinical Practice Guideline (CPG) Outcome: Ongoing Goal: Functional/Safe Swallow Description: Patient will demonstrate the desired outcomes by discharge/transition of care. Outcome: Ongoing Goal: Compensatory Techniques to Improve Safety/Function with Swallowing Description: Patient will demonstrate the desired outcomes by discharge/transition of care. Outcome: Ongoing Problem: Nutrition, Enteral (Adult) Goal: Signs and Symptoms of Listed Potential Problems Will be Absent, Minimized or Managed (Nutrition, Enteral) Description: Signs and symptoms of listed potential problems will be absent, minimized or managed by discharge/transition of care (reference Nutrition, Enteral (Adult) CPG). Outcome: Ongoing Goal: Signs and Symptoms of Listed Potential Problems Will be Absent, Minimized or Managed (Nutrition, Enteral) Description: Signs and symptoms of listed potential problems will be absent, minimized or managed by discharge/transition of care (reference Nutrition, Enteral (Adult) CPG). Outcome: Ongoing Problem: Stroke (Ischemic) (Adult) Goal: Signs and Symptoms of Listed Potential Problems Will be Absent, Minimized or Managed (Stroke) Description: Signs and symptoms of listed potential problems will be absent, minimized or managed by discharge/transition of care (reference Stroke (Ischemic) (Adult) CPG). Outcome: Ongoing Flowsheets (Taken 12/06/2023 1336) Problems Assessed (Stroke (Ischemic)/TIA): all Problems Present (Stroke (Ischemic)/TIA): bladder/bowel dysfunction cognitive impairment communication impairment eating/swallowing impairment motor/sensory impairment muscle tone abnormal respiratory compromise situational response Problem: NETBACKUP ADMINISTRATOR - Cognition Goal: Ongoing Assessment - Patient will participate in ongoing dynamic assessment of motor speech, expressive/receptive language, and cognitive-linguistic skills across 1 session to better assess deficits and most appropriately guide NETBACKUP ADMINISTRATOR plan of care Outcome: Ongoing Note: Patient this date participated in ongoing dynamic assessment including o-log. Continue assessment is recommended to evaluate additional plan of care. Intelligibility is 100%, suspect dysarthria resolved. Goal: Orientation Log - Patient will recall/implement use of orientation strategies, with maximum cues per assessment protocol, to demonstrate improved awareness and insight as measured by achieving a 25/30 on the O-Log Outcome: Progressing Toward Goal Note: Patient scored a 0/30 on the orientation log, patient stating that she is in [place], at work, believes that it is Sunday. Is able to state her full name. Problem: NETBACKUP ADMINISTRATOR - Cognition Goal: Problem Solving in Hospital - Patient will complete basic problem solving tasksin her environment, providing rationale in at least 75% of opportunities in their immediate environment with fading cues to support self-advocacy and independence Outcome: Ongoing Note: Not targeted due to patient with poor insight into reason for admission, etiology and deficits, session focused on these prior to basic problem solving tasks. Problem: NETBACKUP ADMINISTRATOR - Dysphagia Goal: Bolus Challenge Goal 1 Description: Patient will swallow therapeutic p.o.trials/bolus challenge swallows (with NETBACKUP ADMINISTRATOR only) of puree solids x10-20 trials, given mod cues, without clinical signs/symptoms of airway penetration/aspiration and without endorsing >5/10 fatigue over the course of 1/2 sessions to progress towards potential readiness for a repeat instrumental swallow evaluation. Outcome: Progressing Toward Goal Note: Patient accepted X16 trials of puree this date with assistance from NETBACKUP ADMINISTRATOR to feed. Patient with mild anterior spillage from left side of oral cavity. As trials continued, patient with increased oral holding length prior to onset of swallow. Oral cavity is clear after swallow. Continue goal. Goal: Bolus Challenge Goal 2 Description: Patient will swallow therapeutic p.o.trials/bolus challenge swallows (with NETBACKUP ADMINISTRATOR only) of water via straw/sup x10-20 trials, given mod cues, for use of strategies to improve bolus control/timing of the initiation of oral transit/pharyngeal swallow without clinical signs/symptoms of airway penetration/aspiration and without endorsing >5/10 fatigue over the course of 1-2 sessions to determine possible readiness for a repeat instrumental swallow evaluation. Outcome: Progressing Toward Goal Note: Patient was able to complete X20 trials of thin liquids via straw sips this date. Patient required moderate cueing for small single sips (attempting to take continuous). Throat clear and cough noted to increase as trials increased. Continue goal Problem: Patient Care Overview Goal: Plan of Care Review Outcome: Ongoing Goal: Individualization & Mutuality Outcome: Ongoing Goal: Discharge Needs Assessment Outcome: Ongoing Goal: Interdisciplinary Rounds/Family Conf Outcome: Ongoing Problem: Stroke (Ischemic) (Adult) Goal: Signs and Symptoms of Listed Potential Problems Will be Absent, Minimized or Managed (Stroke) Description: Signs and symptoms of listed potential problems will be absent, minimized or managed by discharge/transition of care (reference Stroke (Ischemic) (Adult) CPG). Outcome: Ongoing Images from the original note were not included. Post-Op Note/Post-Procedure Note Patient: Aroldo Vargas : 1945 Sex: female Surgeon(s) and Role: * Jaleesa Shah MD - Primary * Darshan Gabriel MD - Assisting Pre-operative Diagnoses: Dysphagia due to recent cerebrovascular accident [I69.391] Postoperative Diagnoses: Post-Op Diagnosis Codes: * Dysphagia due to recent cerebrovascular accident [I69.391] Procedure performed: Esophagogastroduodenoscopy with placement of percutaneous endoscopic gastrostomy tube Anesthesia: General Indications: Aroldo Vargas is a 78 y.o. year old female who presents with insufficient oral intake following CVA. 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 Preoperatively, I discussed in detail the risks, benefits, alternatives, and potential complications. The patient understands and requests to proceed. Operative Findings: Normal upper endoscopy to second portion of duodenum Technique: The patient was positively identified and was taken to the operating room and placed supine on the operating table. A timeout was performed confirming correct patient and procedure. We also confirmed the initiation of wound prophylaxis. After initiation of general anesthesia by the anesthesia team, the arms were carefully tucked and padded. The diagnostic gastroscope was placed carefully into the posterior oropharynx. The esophagus was normal. The stomach was grossly normal as was the proximal duodenum. The upper abdomen was prepped and draped in the usual sterile surgical fashion. Using the safe tract technique, a spot in the left upper quadrant was selected for gastric lumenal access. In this area, a 7mm transverse incision was made with an 11 blade and introducer cannula placed under direct endoscopic vision into the lumen of the stomach. The looped blue wire was passed into the lumen of the stomach and then grasped with an endoscopic snare and exteriorized out the mouth. A 20-Bahamian pull type percutaneous endoscopic gastrostomy tube was affixed to the blue wire in the usual fashion. This was brought as a unit with the snare and scope into the proximal esophagus. At the 30cm brenda, the snare was released and the internal bumper was allowed to migrate into the lumen of the stomach. The external bumper was placed at the 5 cm brenda. We confirmed hemostasis. We confirmed no undue tension of the gastric wall or the abdominal wall. The lumen was suctioned and the scope was withdrawn. With the stomach desufflated, we again confirmed there was no undue tension on the abdominal wall by the external bumper. I was present throughout the entire duration of the procedure. Estimated blood loss: Minimal. Specimen: None. Implants: 20F PEG Drains: None. Complications: None apparent. Condition of the patient: The patient tolerated the procedure well, was awakened from anesthesia, and taken to the recovery room in good condition. Jaleesa Shah MD Date: 12/18/2023 Time: 3:36 PM Images from the original note were not included. GENERAL SURGERY PLAN OF CARE NOTE Aroldo Vargas is a 78 y.o. female who is s/p EGD with PEG placement on 12/18/23. Plan: - No tube feeds through PEG tube until 24 hours after placement - Meds okay through PEG tube. - Keep abdominal binder on to prevent dislodgement - Pain management and mIVF per Primary Team Please page the Gen/GI Surgery pager with questions or concerns. (Found in [employer]Genda / WebExchange) ALL URGENT ISSUES SHOULD BE PAGED TO THE ABOVE PAGER - IHIS chat is not a reliable method of communication with a surgical service at any time. - The person who wrote this note may be in the operating room, off service, post call, or otherwise unavailable. Carlos Mcmillan MD General Surgery Aroldo Vargas ([id number]) PRE OPERATIVE DIAGNOSIS Dysphagia due to recent cerebrovascular accident [I69.391] POST OPERATIVE DIAGNOSIS Post-Op Diagnosis Codes: * Dysphagia due to recent cerebrovascular accident [I69.391] PROCEDURE PERFORMED Procedure(s) (LRB): EGD with PEG (N/A) PRIMARY CLOSURE N/A INTRAOPERATIVE FINDINGS No significant abnormalities SURGEON Surgeon(s) and Role: * Jaleesa Shah MD - Primary * Darshan Gabriel MD - Assisting ANESTHESIOLOGIST Anesthesiologist: Malcolm Panda MD NC MANAGER: Edwin Philip APRN-[place] MANAGER; Yessica Stanton APRN-ELO SURGICAL STAFF Gambling Counsellor: Nathaly Gee RN; Asia Stevens RN Scrub Person: Peyton Corbett Resident Assisting: Carlos Mcmillan MD COMPLICATIONS None ESTIMATED BLOOD LOSS Minimal SPECIMENS No specimen sent * No specimens in log * Carlos Mcmillan MD Surgery Resident, PGY-1 12/18/23, 2:18 PM Pager # [phone] Problem: PT - General Goals Goal: Supine <-> Sit Transfers - Patient will perform supine to/from sit transfers with minimal assistance and of 2 people and with use of hospital bed features in order to improve functional mobility and safety. Outcome: Progressing Toward Goal Goal: Sitting Endurance/Balance - Patient will perform seated balance tasks for 10 minutes with minimal assistance and bilateral UE support Outcome: Progressing Toward Goal Goal: Sit <-> Stand Transfers - Patient will perform sit to/from stand transfers with moderate assistance and of 2 people and least restrictive device in order to improve functional mobility and safety. Outcome: Progressing Toward Goal Goal: Strength - Patient will demonstrate understanding of exercise program. Outcome: Progressing Toward Goal Problem: OT - ADLs Goal: Grooming - Patient will complete grooming edge of bed with minimal assistance for improved ability to safely complete ADLs. Outcome: Progressing Toward Goal Problem: OT - Transfers Goal: Transfers Supine -> Sit - Patient will perform supine to/from sit with flat bed & no rail and maximal assistance to improve participation in ADLs. Outcome: Progressing Toward Goal Problem: OT - Balance Goal: Balance - Seated - Patient will perform 15 minutes of functional task in sitting with moderate assistance and fair balance to promote safety during self-care activities. Outcome: Progressing Toward Goal Problem: OT - Cognition Goal: Cognition Simple ADL - Patient will demonstrate improved cognition, completing simple ADL task for 10 minutes with no greater than min cues required to maintain attention. Outcome: Progressing Toward Goal Problem: OT - Vision Goal: Visual Tracking - Patient will track past midline to left during session with no greater than mod cues to attend to familiar object/person for ADL participation in 5/5 trials. Outcome: Progressing Toward Goal Problem: Stroke (Ischemic) (Adult) Goal: Signs and Symptoms of Listed Potential Problems Will be Absent, Minimized or Managed (Stroke) Description: Signs and symptoms of listed potential problems will be absent, minimized or managed by discharge/transition of care (reference Stroke (Ischemic) (Adult) CPG). Outcome: Ongoing Problem: Dysphagia (Adult) Goal: Identify Related Risk Factors and Signs and Symptoms Description: Related risk factors and signs and symptoms are identified upon initiation of Human Response Clinical Practice Guideline (CPG) Outcome: Ongoing Problem: Dysphagia (Adult) Goal: Functional/Safe Swallow Description: Patient will demonstrate the desired outcomes by discharge/transition of care. Outcome: Not Met This Shift Goal: Compensatory Techniques to Improve Safety/Function with Swallowing Description: Patient will demonstrate the desired outcomes by discharge/transition of care. Outcome: Not Met This Shift Problem: Patient Care Overview Goal: Plan of Care Review Outcome: Progressing Toward Goal Goal: Individualization & Mutuality Outcome: Progressing Toward Goal Problem: NETBACKUP ADMINISTRATOR - Dysphagia Goal: Bolus Challenge Goal 1 Description: Patient will swallow therapeutic p.o.trials/bolus challenge swallows (with NETBACKUP ADMINISTRATOR only) of puree solids x10-20 trials, given mod cues, without clinical signs/symptoms of airway penetration/aspiration and without endorsing >5/10 fatigue over the course of 1/2 sessions to progress towards potential readiness for a repeat instrumental swallow evaluation. Outcome: Ongoing Goal: Bolus Challenge Goal 2 Description: Patient will swallow therapeutic p.o.trials/bolus challenge swallows (with NETBACKUP ADMINISTRATOR only) of water via straw/sup x10-20 trials, given mod cues, for use of strategies to improve bolus control/timing of the initiation of oral transit/pharyngeal swallow without clinical signs/symptoms of airway penetration/aspiration and without endorsing >5/10 fatigue over the course of 1-2 sessions to determine possible readiness for a repeat instrumental swallow evaluation. Outcome: Ongoing Problem: Patient Care Overview Goal: Plan of Care Review Outcome: Met This Shift Goal: Interdisciplinary Rounds/Family Conf Outcome: Met This Shift Problem: Patient Care Overview Goal: Individualization & Mutuality Outcome: Ongoing Problem: Dysphagia (Adult) Goal: Identify Related Risk Factors and Signs and Symptoms Description: Related risk factors and signs and symptoms are identified upon initiation of Human Response Clinical Practice Guideline (CPG) Outcome: Ongoing Goal: Functional/Safe Swallow Description: Patient will demonstrate the desired outcomes by discharge/transition of care. Outcome: Ongoing Goal: Compensatory Techniques to Improve Safety/Function with Swallowing Description: Patient will demonstrate the desired outcomes by discharge/transition of care. Outcome: Ongoing Problem: Nutrition, Enteral (Adult) Goal: Signs and Symptoms of Listed Potential Problems Will be Absent, Minimized or Managed (Nutrition, Enteral) Description: Signs and symptoms of listed potential problems will be absent, minimized or managed by discharge/transition of care (reference Nutrition, Enteral (Adult) CPG). Outcome: Ongoing Goal: Signs and Symptoms of Listed Potential Problems Will be Absent, Minimized or Managed (Nutrition, Enteral) Description: Signs and symptoms of listed potential problems will be absent, minimized or managed by discharge/transition of care (reference Nutrition, Enteral (Adult) CPG). Outcome: Ongoing Problem: Patient Care Overview Goal: Discharge Needs Assessment Outcome: Progressing Toward Goal Problem: Stroke (Ischemic) (Adult) Goal: Signs and Symptoms of Listed Potential Problems Will be Absent, Minimized or Managed (Stroke) Description: Signs and symptoms of listed potential problems will be absent, minimized or managed by discharge/transition of care (reference Stroke (Ischemic) (Adult) CPG). Outcome: Progressing Toward Goal Problem: Stroke (Ischemic) (Adult) Goal: Signs and Symptoms of Listed Potential Problems Will be Absent, Minimized or Managed (Stroke) Description: Signs and symptoms of listed potential problems will be absent, minimized or managed by discharge/transition of care (reference Stroke (Ischemic) (Adult) CPG). Outcome: Ongoing Problem: Dysphagia (Adult) Goal: Functional/Safe Swallow Description: Patient will demonstrate the desired outcomes by discharge/transition of care. Outcome: Not Met This Shift Goal: Compensatory Techniques to Improve Safety/Function with Swallowing Description: Patient will demonstrate the desired outcomes by discharge/transition of care. Outcome: Not Met This Shift Problem: Patient Care Overview Goal: Plan of Care Review Outcome: Progressing Toward Goal Goal: Individualization & Mutuality Outcome: Progressing Toward Goal Problem: Stroke (Ischemic) (Adult) Goal: Signs and Symptoms of Listed Potential Problems Will be Absent, Minimized or Managed (Stroke) Description: Signs and symptoms of listed potential problems will be absent, minimized or managed by discharge/transition of care (reference Stroke (Ischemic) (Adult) CPG). Outcome: Ongoing Problem: Dysphagia (Adult) Goal: Functional/Safe Swallow Description: Patient will demonstrate the desired outcomes by discharge/transition of care. Outcome: Not Met This Shift Goal: Compensatory Techniques to Improve Safety/Function with Swallowing Description: Patient will demonstrate the desired outcomes by discharge/transition of care. Outcome: Not Met This Shift Problem: Patient Care Overview Goal: Plan of Care Review Outcome: Progressing Toward Goal Goal: Individualization & Mutuality Outcome: Progressing Toward Goal Problem: Nutrition, Enteral (Adult) Goal: Signs and Symptoms of Listed Potential Problems Will be Absent, Minimized or Managed (Nutrition, Enteral) Description: Signs and symptoms of listed potential problems will be absent, minimized or managed by discharge/transition of care (reference Nutrition, Enteral (Adult) CPG). Outcome: Progressing Toward Goal 2130: Notified primary team about increase in NIH from 18 to 21. Patient now scoring for RUE (2) and RLE (2). Patient's score seems to fluctuate on right sided weakness throughout hospital course. No new orders at this time. Images from the original note were not included. Brief Neurovascular Plan of Care Note: Received message that patient NIHSS has been fluctuating. Most recent was 18 to 21. Earlier documented as 17 by attending and 20 by ABIGAIL. Prior NIHSS documented up to 23 and 25 as well. On my exam, patient is lying in bed watching live jazz on the TV. She is easy to arouse. Does not have any current complaints. Physical Examination: Temp: [97.5 F (36.4 C)-98.5 F (36.9 C)] 98.2 F (36.8 C) Pulse (Heart Rate): [68-81] 81 Resp Rate: [16-22] 16 BP: (98-148)/(58-71) 143/71 O2 Sat (%): [94 %-100 %] 94 % Body mass index is 37.02 kg/m . General: Laying comfortably in bed; in no acute distress. Neurological Examination: Mental status: Lying in bed with eyes closed. Easy to wake with voice. She is alert. Knows her name and date. Said the year was April or May. Follows all commands. Speech/language: Mild dysarthria. Names some objects, but perseverates at times. Cranial nerves: CN II: Left visual field cut. PERRL. motor coach driver III, IV and : Right gaze preference, difficulty with overcoming. CN V: Facial sensation is diminished to light touch on the Left CN VII: Left lower facial droop CN VIII: Hearing is grossly intact. CN IX and X: Soft palate elevates symmetrically in the midline CN XI: Shoulder shrug 5/5 on Right CN XII: Tongue is midline with normal movement; no fasciculations. Motor: Normal bulk. No spontaneous movement on the Left upper extremity or Left lower extremity. Reduced ROM with Right shoulder abduction. Able to lift off bed and full ROM with elbow. Difficulty with keeping this up. Right lower extremity with reduced ROM as well and limited antigravity. She does have movement and can minimally raise antigravity. Coordination: [id number] intact on Right upper extremity. Unable to complete [id number] bilaterally. Sensation: Comments Light touch Diminished throughout the Left upper extremity and Left lower extremity NIHSS 12/15/2023 Provider NIH Stroke Scale NIH Interval (Provider): daily NIH Level of Conciousness (Provider): 0 NIH LOC Questions (Provider): 1 (Wrong month (April / May)) NIH LOC Commands (Provider): 0 NIH Best Gaze (Provider): 1 NIH Visual (Provider): 2 (Left complete hemianopia) NIH Facial Palsy (Provider): 2 NIH Left Arm Motor (Provider): 4 NIH Right Arm Motor (Provider): 0 NIH Left Leg Motor (Provider): 4 NIH Right Leg Motor (Provider): 3 NIH Limb Ataxia (Provider): 0 NIH Sensory (Provider): 1 NIH Best Language (Provider): 1 NIH Dysarthria (Provider): 1 NIH Extinction and Inattention (Provider): 1 NIH Total Score (Provider): 21 Impression: Aroldo Vargas is a 78 y.o. 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 Patient exam at this time appears stable in comparison to prior there is reduced movement in the Right upper extremity and Right lower extremity, but her strength in these muscle groups is rather good. Given the distribution of her significant stroke, suspect that her exam fluctuations are likely reflective of some challenge with initiating some of these movements (abulia, apathy) and neglect. She also has Right shoulder and neck discomfort, which could also be limiting the arm. Plan: No acute interventions at this time. Rest of stroke work up per neurovascular consult note 12/15. Wagner Galindo M.D. PGY-4 Department of Neurology Problem: Patient Care Overview Goal: Plan of Care Review Outcome: Ongoing Goal: Individualization & Mutuality Outcome: Ongoing Goal: Discharge Needs Assessment Outcome: Ongoing Goal: Interdisciplinary Rounds/Family Conf Outcome: Ongoing Problem: Stroke (Ischemic) (Adult) Goal: Signs and Symptoms of Listed Potential Problems Will be Absent, Minimized or Managed (Stroke) Description: Signs and symptoms of listed potential problems will be absent, minimized or managed by discharge/transition of care (reference Stroke (Ischemic) (Adult) CPG). Outcome: Ongoing Problem: Dysphagia (Adult) Goal: Identify Related Risk Factors and Signs and Symptoms Description: Related risk factors and signs and symptoms are identified upon initiation of Human Response Clinical Practice Guideline (CPG) Outcome: Ongoing Goal: Functional/Safe Swallow Description: Patient will demonstrate the desired outcomes by discharge/transition of care. Outcome: Ongoing Goal: Compensatory Techniques to Improve Safety/Function with Swallowing Description: Patient will demonstrate the desired outcomes by discharge/transition of care. Outcome: Ongoing Problem: Nutrition, Enteral (Adult) Goal: Signs and Symptoms of Listed Potential Problems Will be Absent, Minimized or Managed (Nutrition, Enteral) Description: Signs and symptoms of listed potential problems will be absent, minimized or managed by discharge/transition of care (reference Nutrition, Enteral (Adult) CPG). Outcome: Ongoing Goal: Signs and Symptoms of Listed Potential Problems Will be Absent, Minimized or Managed (Nutrition, Enteral) Description: Signs and symptoms of listed potential problems will be absent, minimized or managed by discharge/transition of care (reference Nutrition, Enteral (Adult) CPG). Outcome: Ongoing Problem: Dysphagia Goal: Ongoing Assessment - Patient will participate in ongoing assessment by accepting various PO consistency trials with appropriate participation/oral acceptance and no significant respiratory complications to determine readiness for po diet vs instrumental Outcome: Completed Problem: Nutrition, Enteral (Adult) Goal: Signs and Symptoms of Listed Potential Problems Will be Absent, Minimized or Managed (Nutrition, Enteral) Description: Signs and symptoms of listed potential problems will be absent, minimized or managed by discharge/transition of care (reference Nutrition, Enteral (Adult) CPG). Outcome: Ongoing Note: Nutrition Recommendations and Plan of Care: 1. Increase TF to goal: Jevity 1.5 @ 50 mL/hr. 2. Diet per NETBACKUP ADMINISTRATOR. 3. Monitor TF intake, diet advancement, bowel function, skin integrity, weight change, lab values. 4. RD to follow. Problem: Patient Care Overview Goal: Plan of Care Review Outcome: Ongoing Goal: Individualization & Mutuality Outcome: Ongoing Goal: Discharge Needs Assessment Outcome: Ongoing Goal: Interdisciplinary Rounds/Family Conf Outcome: Ongoing Problem: Stroke (Ischemic) (Adult) Goal: Signs and Symptoms of Listed Potential Problems Will be Absent, Minimized or Managed (Stroke) Description: Signs and symptoms of listed potential problems will be absent, minimized or managed by discharge/transition of care (reference Stroke (Ischemic) (Adult) CPG). Outcome: Ongoing Problem: Dysphagia (Adult) Goal: Identify Related Risk Factors and Signs and Symptoms Description: Related risk factors and signs and symptoms are identified upon initiation of Human Response Clinical Practice Guideline (CPG) Outcome: Ongoing Goal: Functional/Safe Swallow Description: Patient will demonstrate the desired outcomes by discharge/transition of care. Outcome: Ongoing Goal: Compensatory Techniques to Improve Safety/Function with Swallowing Description: Patient will demonstrate the desired outcomes by discharge/transition of care. Outcome: Ongoing Problem: Nutrition, Enteral (Adult) Goal: Signs and Symptoms of Listed Potential Problems Will be Absent, Minimized or Managed (Nutrition, Enteral) Description: Signs and symptoms of listed potential problems will be absent, minimized or managed by discharge/transition of care (reference Nutrition, Enteral (Adult) CPG). Outcome: Ongoing Problem: PT - General Goals Goal: Supine <-> Sit Transfers - Patient will perform supine to/from sit transfers with minimal assistance and of 2 people and with use of hospital bed features in order to improve functional mobility and safety. Outcome: Progressing Toward Goal Goal: Sitting Endurance/Balance - Patient will perform seated balance tasks for 10 minutes with minimal assistance and bilateral UE support Outcome: Progressing Toward Goal Goal: Sit <-> Stand Transfers - Patient will perform sit to/from stand transfers with moderate assistance and of 2 people and least restrictive device in order to improve functional mobility and safety. Outcome: Progressing Toward Goal Goal: Strength - Patient will demonstrate understanding of exercise program. Outcome: Progressing Toward Goal Problem: Patient Care Overview Goal: Plan of Care Review Flowsheets (Taken 12/13/2023 0957) Plan Of Care Reviewed With: patient Progress: no change Problem: OT - Transfers Goal: Transfers Supine -> Sit - Patient will perform supine to/from sit with flat bed & no rail and maximal assistance to improve participation in ADLs. Outcome: Ongoing Problem: OT - Cognition Goal: Cognition Simple ADL - Patient will demonstrate improved cognition, completing simple ADL task for 10 minutes with no greater than min cues required to maintain attention. Outcome: Ongoing Problem: OT - ADLs Goal: Grooming - Patient will complete grooming edge of bed with minimal assistance for improved ability to safely complete ADLs. Outcome: Progressing Toward Goal Problem: OT - Balance Goal: Balance - Seated - Patient will perform 15 minutes of functional task in sitting with moderate assistance and fair balance to promote safety during self-care activities. Outcome: Progressing Toward Goal Problem: OT - Vision Goal: Visual Tracking - Patient will track past midline to left during session with no greater than mod cues to attend to familiar object/person for ADL participation in 5/5 trials. Outcome: Progressing Toward Goal Problem: Patient Care Overview Goal: Plan of Care Review Outcome: Ongoing Goal: Individualization & Mutuality Outcome: Ongoing Goal: Discharge Needs Assessment Outcome: Ongoing Goal: Interdisciplinary Rounds/Family Conf Outcome: Ongoing Problem: Stroke (Ischemic) (Adult) Goal: Signs and Symptoms of Listed Potential Problems Will be Absent, Minimized or Managed (Stroke) Description: Signs and symptoms of listed potential problems will be absent, minimized or managed by discharge/transition of care (reference Stroke (Ischemic) (Adult) CPG). Outcome: Ongoing Problem: Dysphagia (Adult) Goal: Identify Related Risk Factors and Signs and Symptoms Description: Related risk factors and signs and symptoms are identified upon initiation of Human Response Clinical Practice Guideline (CPG) Outcome: Ongoing Goal: Functional/Safe Swallow Description: Patient will demonstrate the desired outcomes by discharge/transition of care. Outcome: Ongoing Goal: Compensatory Techniques to Improve Safety/Function with Swallowing Description: Patient will demonstrate the desired outcomes by discharge/transition of care. Outcome: Ongoing Problem: Nutrition, Enteral (Adult) Goal: Signs and Symptoms of Listed Potential Problems Will be Absent, Minimized or Managed (Nutrition, Enteral) Description: Signs and symptoms of listed potential problems will be absent, minimized or managed by discharge/transition of care (reference Nutrition, Enteral (Adult) CPG). Outcome: Ongoing Problem: Dysphagia (Adult) Goal: Identify Related Risk Factors and Signs and Symptoms Description: Related risk factors and signs and symptoms are identified upon initiation of Human Response Clinical Practice Guideline (CPG) Outcome: Ongoing Goal: Functional/Safe Swallow Description: Patient will demonstrate the desired outcomes by discharge/transition of care. Outcome: Ongoing Goal: Compensatory Techniques to Improve Safety/Function with Swallowing Description: Patient will demonstrate the desired outcomes by discharge/transition of care. Outcome: Ongoing GI Plan of Care: Ms Vargas underwent EGD for attempted PEG placement today. 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 Consider cross sectional imaging and/or consultation with surgery for surgical placement. - Normal esophagus. - Large hiatal hernia. - Normal stomach. - Normal examined duodenum. - No specimens collected. Recommendation: - Return patient to hospital [facility] for ongoing care. - Resume previous diet. - Continue present medications. - Repeat XR on return to floor to assess NG tube positioning - likely needs to be advanced further or replaced. - Consult with surgery for PEG placement; may benefit from cross sectional imaging to define the gastric anatomy but would defer this decision to surgical team. - GI will sign off at this time, please reach out with any questions Erick Arora MD GI Plan of Care: Due to urgent cases, we will need to postpone Ms Vargas's PEG placement until tomorrow. Plan: - Will attempt PEG placement tomorrow. - Ancef ordered (1 gm if patient is <80 kg; 2 gm if patient is >80 kg) as "interior surface insulation worker to the procedure"). - Please make NPO at midnight, including tube feeds. - Monitor for fevers, will need to be afebrile for >24hours - Check CBC and coags in the AM. Please ensure that hemoglobin is >7, platelets >50 and INR <1.6 - Please hold AM DVT prophylaxis (if applicable) - Anticoagulation infusions will need to be held for 6 hours prior to the procedure (if applicable) - Endoscopy may need to be rescheduled for the following reasons: urgent / emergent procedures, change in clinic status (example - respiratory decompensation overnight, hypotension, etc), echocardiogram ordered but not complete prior to endoscopy or at the discretion of anesthesia staff Erick Arora MD Images from the original note were not included. WOC/ET Nursing Consult/Evaluation Note Evaluated Aroldo Vargas for skin tears to bilateral arms. Description of wound: R arm : small superficial skin tear with moist pink/red wound base, small amount of serosanguinous drainage. Edges of wound are dry but fragile. Ondina-wound skin is clean dry and intact. Cleansed with normal saline and patted dry with gauze, small piece of xeroform placed to wound covered with dry dressing and gently secured with kerlix gauze. L wrist: 2x1cm wound that is scabbed over, dry and intact. Surrounding skin is pink dry and intact. Cleansed with normal saline and left open to air since this is not open or draining at this time. Recommendation: R arm: Cleanse with normal saline, pat dry with gauze. Cut small piece of Xeroform to fit over moist area of wound. Cover with dry 4x4 or 2x4 and gently secure with Kerlix roll gauze ensuring that tape is used only on gauze not on patient skin. Change daily and PRN. Recommend continuing pressure reduction techniques including frequent repositioning, minimizing elevation of the head of the bed, and encouraging patient to be out of bed as much as possible (use pressure reducing wheelchair cushion when sitting in chair). Apply TruVue boots or float heels on pillows bilaterally while in bed for pressure offloading protection. Bed Surface: Standard brain and spine bed with standard mattress. Please implement STAND Skin Bundle: Score on José Miguel Scale If José Miguel ?18 , the skin bundle should be implemented in full, unless contraindicated If José Miguel ? 12 , Consult WOC team for High Risk for skin breakdown Turn, Offload and Reposition tubes and devices Turns are documented properly in IHIS Tubes and devices are checked and not under pt Apply Barrier Cream (incontinent pts) or Foam dressing (continent pts) Pt is incontinent, Apply Critic-Aid Clear Moisture Barrier Ointment BID or as directed by /SB Pt is continent, Lift back one corner of the bordered foam dressing, inspect the skin, and then reposition the dressing over bony prominence. Nutritional Intervention Encourage 2-4 ounces of nutrition supplement 3-4 times a day. Typically this should occur with medication administration Chart type of supplement and volume consumed in I/O flowsheet Discuss with Specialist Place a consult in EPIC for the WOCN if José Miguel Score is ? 12 ( high or severe risk) Discuss with MANAGER PROTEIN or Unit Skin [place] The STAND skin bundle is an evidence-based prevention bundle designed to prevent pressure injuries in patients who are at risk for developing a pressure-related injury. For more information related to STAND Skin Bundle: [email or web address] WOC team to follow patient PRN. Please re-consult or page for any additional concerns. Discharge Recommendations: Patient may continue care as described above at discharge. See image(s) below: José Miguel Skin Assessment: José Miguel Risk Assessment Sensory Perception: 2-->very limited Moisture: 3-->occasionally moist Activity: 1-->bedfast Mobility: 2-->very limited Nutrition: 2-->probably inadequate Friction and Shear: 2-->potential problem José Miguel Score: 12 José Miguel Score: José Miguel Score: 12 Body mass index is 37.02 kg/m . Total time spent in assessment and treatment of patient: 15 min LABS: Albumin Date Value Ref Range Status 11/30/2023 3.4 (L) 3.5 - 5.0 g/dL Final No results found for: "PREALBUMIN" Wound Documentation: 12/11/23 1630 Wound Skin Tear 12/06/23 1030 Left Radial Date First Assessed/Time First Assessed: 12/06/23 1030 Primary Wound Type: Skin Tear Wound Location Orientation: Left Location: Radial Wound Image Dressing Status Changed/New Closure None Assessment Clean;Dry;Other (Comment) (scabbed over) Ondina-Wound Assessment Blanchable;Dry;Intact $$ Dressing Applied no dressing-open to air Wound Skin Tear 12/08/23 1412 Lower;Posterior;Right Arm Date First Assessed/Time First Assessed: 12/08/23 1412 Primary Wound Type: Skin Tear Present on Original Admission: No Wound Description: Present when old IV tegarderm was removed Wound Location Orientation: Lower;Posterior;Right Location: Arm Wound Image Dressing Status Changed/New Assessment Blanchable;Drainage;Moist;[place];Red Ondina-Wound Assessment Blanchable;Cool;Fragile;Intact Drainage Amount Small Drainage Characteristics/Odor Serosanguinous Treatment Applied saline, irrigated/cleansed with $$ Dressing Applied Xeroform;dry dressing Date Dressing Changed 12/11/23 Plan Problem skin tear Current Plan petroleum gauze dressing Visit Type Consult with RN Supportive Measures bed therapy;elevate extremitiy;position off wound;turn every 2 hours;optimize nutrition WOCT Visit Frequency PRN Last Date Seen 12/11/23 Wound evaluation and care recommendations provided by this RN under the direction of WOCN. RN notified of assessment and plan. Please page #[phone] or reconsult with any further needs. Gisela Ornelas RN Problem: PT - General Goals Goal: Supine <-> Sit Transfers - Patient will perform supine to/from sit transfers with minimal assistance and of 2 people and with use of hospital bed features in order to improve functional mobility and safety. Outcome: Ongoing Goal: Strength - Patient will demonstrate understanding of exercise program. Outcome: Ongoing Problem: OT - ADLs Goal: Grooming - Patient will complete grooming edge of bed with minimal assistance for improved ability to safely complete ADLs. Outcome: Ongoing Problem: OT - Transfers Goal: Transfers Supine -> Sit - Patient will perform supine to/from sit with flat bed & no rail and maximal assistance to improve participation in ADLs. Outcome: Ongoing Problem: OT - Balance Goal: Balance - Seated - Patient will perform 15 minutes of functional task in sitting with moderate assistance and fair balance to promote safety during self-care activities. Outcome: Ongoing Problem: OT - Cognition Goal: Cognition Simple ADL - Patient will demonstrate improved cognition, completing simple ADL task for 10 minutes with no greater than min cues required to maintain attention. Outcome: Ongoing Problem: OT - Vision Goal: Visual Tracking - Patient will track past midline to left during session with no greater than mod cues to attend to familiar object/person for ADL participation in 5/5 trials. Outcome: Progressing Toward Goal GI Plan of Care: Discussed with primary team today; patient's family would like to pursue PEG and patient amenable to placement as well. Given PEG remains within patient/family goals of care we will plan for PEG tube placement, tentatively tomorrow 12/11 pending scheduling availability. For PEG: - Please make NPO at midnight, including tube feeds. - Ancef ordered (1 gm if patient is <80 kg; 2 gm if patient is >80 kg) as "interior surface insulation worker to the procedure"). - Monitor for fevers, will need to be afebrile for >24hours - Check CBC, BMP, and coags in the AM. Please ensure that hemoglobin is >7, platelets >50, INR <1.6, and K >3.5 - Please hold any AM DVT prophylaxis - Anticoagulation infusions will need to be held for 6 hours prior to the procedure (if applicable) - Endoscopy may need to be rescheduled for the following reasons: urgent / emergent procedures, change in clinic status (example - respiratory decompensation overnight, hypotension, etc), echocardiogram ordered but not complete prior to endoscopy or at the discretion of anesthesia staff Erick Arora MD Problem: Patient Care Overview Goal: Plan of Care Review Outcome: Ongoing Goal: Individualization & Mutuality Outcome: Ongoing Goal: Discharge Needs Assessment Outcome: Ongoing Goal: Interdisciplinary Rounds/Family Conf Outcome: Ongoing Problem: Stroke (Ischemic) (Adult) Goal: Signs and Symptoms of Listed Potential Problems Will be Absent, Minimized or Managed (Stroke) Description: Signs and symptoms of listed potential problems will be absent, minimized or managed by discharge/transition of care (reference Stroke (Ischemic) (Adult) CPG). Outcome: Ongoing Problem: Dysphagia (Adult) Goal: Identify Related Risk Factors and Signs and Symptoms Description: Related risk factors and signs and symptoms are identified upon initiation of Human Response Clinical Practice Guideline (CPG) Outcome: Ongoing Goal: Functional/Safe Swallow Description: Patient will demonstrate the desired outcomes by discharge/transition of care. Outcome: Ongoing Goal: Compensatory Techniques to Improve Safety/Function with Swallowing Description: Patient will demonstrate the desired outcomes by discharge/transition of care. Outcome: Ongoing Problem: Patient Care Overview Goal: Plan of Care Review Outcome: Progressing Toward Goal Goal: Individualization & Mutuality Outcome: Progressing Toward Goal Goal: Discharge Needs Assessment Outcome: Progressing Toward Goal Goal: Interdisciplinary Rounds/Family Conf Outcome: Met This Shift Problem: Stroke (Ischemic) (Adult) Goal: Signs and Symptoms of Listed Potential Problems Will be Absent, Minimized or Managed (Stroke) Description: Signs and symptoms of listed potential problems will be absent, minimized or managed by discharge/transition of care (reference Stroke (Ischemic) (Adult) CPG). Outcome: Progressing Toward Goal Problem: Nutrition, Enteral (Adult) Goal: Signs and Symptoms of Listed Potential Problems Will be Absent, Minimized or Managed (Nutrition, Enteral) Description: Signs and symptoms of listed potential problems will be absent, minimized or managed by discharge/transition of care (reference Nutrition, Enteral (Adult) CPG). Outcome: Ongoing Nutrition Recommendations and Plan of Care: Diet per NETBACKUP ADMINISTRATOR. Change TF to Jevity 1.5 @ 50 mL/hr to provide 1200 mL total volume, 1800 kcal (29 kcal/kg adj IBW), and 77 g PRO (1.2 g/kg adj IBW). Free water per primary team. Recommend minimum of 30 mL q4 hours x 6 daily to maintain tube patency. Monitor TF intake, TF tolerance, GI function, skin integrity, weight changes, and labs. RD to continue to follow. Problem: PT - General Goals Goal: Supine <-> Sit Transfers - Patient will perform supine to/from sit transfers with minimal assistance and of 2 people and with use of hospital bed features in order to improve functional mobility and safety. Outcome: Progressing Toward Goal Goal: Sitting Endurance/Balance - Patient will perform seated balance tasks for 10 minutes with minimal assistance and bilateral UE support Outcome: Progressing Toward Goal Goal: Strength - Patient will demonstrate understanding of exercise program. Outcome: Progressing Toward Goal Problem: Dysphagia Goal: Ongoing Assessment - Patient will participate in ongoing assessment by accepting various PO consistency trials with appropriate participation/oral acceptance and no significant respiratory complications to determine readiness for po diet vs instrumental Outcome: Ongoing Problem: OT - Transfers Goal: Transfers Supine -> Sit - Patient will perform supine to/from sit with flat bed & no rail and maximal assistance to improve participation in ADLs. Outcome: Ongoing Problem: OT - Balance Goal: Balance - Seated - Patient will perform 15 minutes of functional task in sitting with moderate assistance and fair balance to promote safety during self-care activities. Outcome: Ongoing Problem: OT - Cognition Goal: Cognition Simple ADL - Patient will demonstrate improved cognition, completing simple ADL task for 10 minutes with no greater than min cues required to maintain attention. Outcome: Ongoing Problem: OT - ADLs Goal: Grooming - Patient will complete grooming edge of bed with minimal assistance for improved ability to safely complete ADLs. Outcome: Progressing Toward Goal Problem: OT - Vision Goal: Visual Tracking - Patient will track past midline to left during session with no greater than mod cues to attend to familiar object/person for ADL participation in 5/5 trials. Outcome: Progressing Toward Goal Problem: Patient Care Overview Goal: Plan of Care Review Outcome: Not Met This Shift Problem: Patient Care Overview Goal: Plan of Care Review Outcome: Ongoing Goal: Individualization & Mutuality Outcome: Ongoing Goal: Discharge Needs Assessment Outcome: Ongoing Goal: Interdisciplinary Rounds/Family Conf Outcome: Ongoing Problem: Stroke (Ischemic) (Adult) Goal: Signs and Symptoms of Listed Potential Problems Will be Absent, Minimized or Managed (Stroke) Description: Signs and symptoms of listed potential problems will be absent, minimized or managed by discharge/transition of care (reference Stroke (Ischemic) (Adult) CPG). Outcome: Ongoing Problem: Dysphagia (Adult) Goal: Identify Related Risk Factors and Signs and Symptoms Description: Related risk factors and signs and symptoms are identified upon initiation of Human Response Clinical Practice Guideline (CPG) Outcome: Ongoing Goal: Functional/Safe Swallow Description: Patient will demonstrate the desired outcomes by discharge/transition of care. Outcome: Ongoing Goal: Compensatory Techniques to Improve Safety/Function with Swallowing Description: Patient will demonstrate the desired outcomes by discharge/transition of care. Outcome: Ongoing Problem: Stroke (Ischemic) (Adult) Goal: Signs and Symptoms of Listed Potential Problems Will be Absent, Minimized or Managed (Stroke) Description: Signs and symptoms of listed potential problems will be absent, minimized or managed by discharge/transition of care (reference Stroke (Ischemic) (Adult) CPG). Outcome: Ongoing Flowsheets (Taken 12/06/2023 1875) Problems Assessed (Stroke (Ischemic)/TIA): all Problems Present (Stroke (Ischemic)/TIA): bladder/bowel dysfunction cognitive impairment communication impairment eating/swallowing impairment motor/sensory impairment muscle tone abnormal respiratory compromise situational response Images from the original note were not included. I briefly visited with Aroldo Vargas this morning as the Transitions of Care Nurse for the [facility] at the [facility]. Given the nature of Aroldo Vargas's stroke, I was not able to complete a full visit. I will reach out to family for further planning. In the meantime, I have left my business card, a [email or web address], and an invitation to our patient and family education session within the room for any loved ones who may visit. FADY Garza, RN Transitions of Care Nurse [facility] [place] [address] Office [email or web address] Problem: PT - General Goals Goal: Supine <-> Sit Transfers - Patient will perform supine to/from sit transfers with minimal assistance and of 2 people and with use of hospital bed features in order to improve functional mobility and safety. Outcome: Progressing Toward Goal Goal: Sitting Endurance/Balance - Patient will perform seated balance tasks for 10 minutes with minimal assistance and bilateral UE support Outcome: Progressing Toward Goal Goal: Sit <-> Stand Transfers - Patient will perform sit to/from stand transfers with moderate assistance and of 2 people and least restrictive device in order to improve functional mobility and safety. Outcome: Progressing Toward Goal Goal: Strength - Patient will demonstrate understanding of exercise program. Outcome: Progressing Toward Goal Problem: OT - Transfers Goal: Transfers Supine -> Sit - Patient will perform supine to/from sit with flat bed & no rail and maximal assistance to improve participation in ADLs. Outcome: Ongoing Problem: OT - Balance Goal: Balance - Seated - Patient will perform 15 minutes of functional task in sitting with moderate assistance and fair balance to promote safety during self-care activities. Outcome: Ongoing Problem: OT - Vision Goal: Visual Tracking - Patient will track past midline to left during session with no greater than mod cues to attend to familiar object/person for ADL participation in 5/5 trials. Outcome: Ongoing Problem: OT - ADLs Goal: Grooming - Patient will complete grooming edge of bed with minimal assistance for improved ability to safely complete ADLs. Outcome: Progressing Toward Goal Problem: OT - Cognition Goal: Cognition Simple ADL - Patient will demonstrate improved cognition, completing simple ADL task for 10 minutes with no greater than min cues required to maintain attention. Outcome: Progressing Toward Goal Problem: Patient Care Overview Goal: Plan of Care Review Outcome: Met This Shift Goal: Individualization & Mutuality Outcome: Met This Shift Goal: Interdisciplinary Rounds/Family Conf Outcome: Met This Shift Problem: Stroke (Ischemic) (Adult) Goal: Signs and Symptoms of Listed Potential Problems Will be Absent, Minimized or Managed (Stroke) Description: Signs and symptoms of listed potential problems will be absent, minimized or managed by discharge/transition of care (reference Stroke (Ischemic) (Adult) CPG). Outcome: Met This Shift Problem: Dysphagia (Adult) Goal: Identify Related Risk Factors and Signs and Symptoms Description: Related risk factors and signs and symptoms are identified upon initiation of Human Response Clinical Practice Guideline (CPG) Outcome: Met This Shift Problem: Nutrition, Enteral (Adult) Goal: Signs and Symptoms of Listed Potential Problems Will be Absent, Minimized or Managed (Nutrition, Enteral) Description: Signs and symptoms of listed potential problems will be absent, minimized or managed by discharge/transition of care (reference Nutrition, Enteral (Adult) CPG). Outcome: Met This Shift Problem: Patient Care Overview Goal: Discharge Needs Assessment Outcome: Progressing Toward Goal Problem: Dysphagia (Adult) Goal: Functional/Safe Swallow Description: Patient will demonstrate the desired outcomes by discharge/transition of care. Outcome: Progressing Toward Goal Goal: Compensatory Techniques to Improve Safety/Function with Swallowing Description: Patient will demonstrate the desired outcomes by discharge/transition of care. Outcome: Progressing Toward Goal Problem: Dysphagia Goal: Ongoing Assessment - Patient will participate in ongoing assessment by accepting various PO consistency trials with appropriate participation/oral acceptance and no significant respiratory complications to determine readiness for po diet vs instrumental Outcome: Ongoing Problem: Patient Care Overview Goal: Plan of Care Review Outcome: Ongoing Goal: Individualization & Mutuality Outcome: Ongoing Goal: Interdisciplinary Rounds/Family Conf Outcome: Ongoing Problem: Patient Care Overview Goal: Discharge Needs Assessment Outcome: Not Met This Shift Problem: Patient Care Overview Goal: Plan of Care Review Outcome: Met This Shift Goal: Individualization & Mutuality Outcome: Met This Shift Goal: Interdisciplinary Rounds/Family Conf Outcome: Met This Shift Problem: Stroke (Ischemic) (Adult) Goal: Signs and Symptoms of Listed Potential Problems Will be Absent, Minimized or Managed (Stroke) Description: Signs and symptoms of listed potential problems will be absent, minimized or managed by discharge/transition of care (reference Stroke (Ischemic) (Adult) CPG). Outcome: Met This Shift Problem: Dysphagia Goal: Ongoing Assessment - Patient will participate in ongoing assessment by accepting various PO consistency trials with appropriate participation/oral acceptance and no significant respiratory complications to determine readiness for po diet vs instrumental Outcome: Met This Shift Problem: Nutrition, Enteral (Adult) Goal: Signs and Symptoms of Listed Potential Problems Will be Absent, Minimized or Managed (Nutrition, Enteral) Description: Signs and symptoms of listed potential problems will be absent, minimized or managed by discharge/transition of care (reference Nutrition, Enteral (Adult) CPG). Outcome: Met This Shift Problem: Patient Care Overview Goal: Discharge Needs Assessment Outcome: Ongoing Problem: Dysphagia (Adult) Goal: Identify Related Risk Factors and Signs and Symptoms Description: Related risk factors and signs and symptoms are identified upon initiation of Human Response Clinical Practice Guideline (CPG) Outcome: Progressing Toward Goal Goal: Functional/Safe Swallow Description: Patient will demonstrate the desired outcomes by discharge/transition of care. Outcome: Progressing Toward Goal Goal: Compensatory Techniques to Improve Safety/Function with Swallowing Description: Patient will demonstrate the desired outcomes by discharge/transition of care. Outcome: Progressing Toward Goal Problem: PT - General Goals Goal: Supine <-> Sit Transfers - Patient will perform supine to/from sit transfers with minimal assistance and of 2 people and with use of hospital bed features in order to improve functional mobility and safety. Outcome: Progressing Toward Goal Goal: Sitting Endurance/Balance - Patient will perform seated balance tasks for 10 minutes with minimal assistance and bilateral UE support Outcome: Progressing Toward Goal Problem: NETBACKUP ADMINISTRATOR - Cognition Goal: Ongoing Assessment - Patient will participate in ongoing dynamic assessment of motor speech, expressive/receptive language, and cognitive-linguistic skills across 1 session to better assess deficits and most appropriately guide NETBACKUP ADMINISTRATOR plan of care Outcome: Ongoing Goal: Orientation Log - Patient will recall/implement use of orientation strategies, with maximum cues per assessment protocol, to demonstrate improved awareness and insight as measured by achieving a 25/30 on the O-Log Outcome: Ongoing Problem: Dysphagia Goal: Ongoing Assessment - Patient will participate in ongoing assessment by accepting various PO consistency trials with appropriate participation/oral acceptance and no significant respiratory complications to determine readiness for po diet vs instrumental Outcome: Ongoing Problem: OT - Transfers Goal: Transfers Supine -> Sit - Patient will perform supine to/from sit with flat bed & no rail and maximal assistance to improve participation in ADLs. Outcome: Ongoing Problem: OT - Vision Goal: Visual Tracking - Patient will track past midline to left during session with no greater than mod cues to attend to familiar object/person for ADL participation in 5/5 trials. Outcome: Ongoing Problem: OT - ADLs Goal: Grooming - Patient will complete grooming edge of bed with minimal assistance for improved ability to safely complete ADLs. Outcome: Progressing Toward Goal Problem: OT - Balance Goal: Balance - Seated - Patient will perform 15 minutes of functional task in sitting with moderate assistance and fair balance to promote safety during self-care activities. Outcome: Progressing Toward Goal Problem: OT - Cognition Goal: Cognition Simple ADL - Patient will demonstrate improved cognition, completing simple ADL task for 10 minutes with no greater than min cues required to maintain attention. Outcome: Progressing Toward Goal Problem: Patient Care Overview Goal: Plan of Care Review Outcome: Met This Shift Goal: Individualization & Mutuality Outcome: Met This Shift Problem: Stroke (Ischemic) (Adult) Goal: Signs and Symptoms of Listed Potential Problems Will be Absent, Minimized or Managed (Stroke) Description: Signs and symptoms of listed potential problems will be absent, minimized or managed by discharge/transition of care (reference Stroke (Ischemic) (Adult) CPG). Outcome: Met This Shift Problem: Dysphagia (Adult) Goal: Identify Related Risk Factors and Signs and Symptoms Description: Related risk factors and signs and symptoms are identified upon initiation of Human Response Clinical Practice Guideline (CPG) Outcome: Met This Shift Goal: Compensatory Techniques to Improve Safety/Function with Swallowing Description: Patient will demonstrate the desired outcomes by discharge/transition of care. Outcome: Met This Shift Problem: Nutrition, Enteral (Adult) Goal: Signs and Symptoms of Listed Potential Problems Will be Absent, Minimized or Managed (Nutrition, Enteral) Description: Signs and symptoms of listed potential problems will be absent, minimized or managed by discharge/transition of care (reference Nutrition, Enteral (Adult) CPG). Outcome: Met This Shift Problem: Patient Care Overview Goal: Discharge Needs Assessment Outcome: Ongoing Problem: Patient Care Overview Goal: Interdisciplinary Rounds/Family Conf Outcome: Not Met This Shift Problem: Dysphagia (Adult) Goal: Functional/Safe Swallow Description: Patient will demonstrate the desired outcomes by discharge/transition of care. Outcome: Not Met This Shift Problem: Patient Care Overview Goal: Plan of Care Review Outcome: Ongoing Goal: Individualization & Mutuality Outcome: Ongoing Goal: Discharge Needs Assessment Outcome: Ongoing Goal: Interdisciplinary Rounds/Family Conf Outcome: Ongoing Problem: Stroke (Ischemic) (Adult) Goal: Signs and Symptoms of Listed Potential Problems Will be Absent, Minimized or Managed (Stroke) Description: Signs and symptoms of listed potential problems will be absent, minimized or managed by discharge/transition of care (reference Stroke (Ischemic) (Adult) CPG). Outcome: Ongoing Problem: Nutrition, Enteral (Adult) Goal: Signs and Symptoms of Listed Potential Problems Will be Absent, Minimized or Managed (Nutrition, Enteral) Description: Signs and symptoms of listed potential problems will be absent, minimized or managed by discharge/transition of care (reference Nutrition, Enteral (Adult) CPG). Outcome: Ongoing I recertify that this patient requires inpatient services at this time. Inpatient services are due to the following medical concerns acute R MCA/RUBY ischemic stroke . Plans for post hospitalization care will be discharge to D . Neurological Surgery Sign Off Note Patient imaging and clinical course discussed with Dr. Clark -- Ms. Vargas had a right M2 thrombectomy with on 11/29/23. She had TICI2b revascularization and unfortunately had a small hemorrhage in the right basal ganglia. Repeat CT scan is stable -- No further neurosurgery needs. No follow up required. -- Neurosurgery will sign off at this time Thank you for including us in the care of Ms. Vargas Do not hesitate to call or page if there are any questions or concerns regarding this patient. Dimitri Barnhart MD Neurosurgery PGY-[id number] [phone] Problem: Nutrition, Enteral (Adult) Goal: Signs and Symptoms of Listed Potential Problems Will be Absent, Minimized or Managed (Nutrition, Enteral) Description: Signs and symptoms of listed potential problems will be absent, minimized or managed by discharge/transition of care (reference Nutrition, Enteral (Adult) CPG). Outcome: Ongoing Nutrition Recommendations and Plan of Care: Initiate TF of Vital AF 1.2 at 10 mL/hr. Increase by 10 mL/hr q4 hours as tolerated until goal rate of 55 mL/hr is achieved to provide 1320 mL total volume, 1584 kcal (26 kcal/kg adj IBW), and 99 g PRO (2.0 g/kg IBW). Free water per primary team. Recommend minimum of 30 mL q4 hours x 6 daily to maintain tube patency. If reported weight loss accurate, pt at risk of refeeding syndrome. If electrolytes drop, please start thiamine: 100 mg/day x 5-7days. Monitor electrolytes and replete as needed. If electrolytes drop, please slow TF advancement rate/TF rate. Monitor TF intake, TF tolerance, GI function, skin integrity, weight changes, and labs. RD to continue to follow. Problem: Dysphagia Goal: Ongoing Assessment - Patient will participate in ongoing assessment by accepting various PO consistency trials with appropriate participation/oral acceptance and no significant respiratory complications to determine readiness for po diet vs instrumental Outcome: Ongoing Problem: NETBACKUP ADMINISTRATOR - Cognition Goal: Ongoing Assessment - Patient will participate in ongoing dynamic assessment of motor speech, expressive/receptive language, and cognitive-linguistic skills across 1 session to better assess deficits and most appropriately guide NETBACKUP ADMINISTRATOR plan of care Outcome: Ongoing Goal: Orientation Log - Patient will recall/implement use of orientation strategies, with maximum cues per assessment protocol, to demonstrate improved awareness and insight as measured by achieving a 25/30 on the O-Log Outcome: Ongoing Problem: Patient Care Overview Goal: Plan of Care Review Outcome: Progressing Toward Goal Goal: Individualization & Mutuality Outcome: Progressing Toward Goal Goal: Discharge Needs Assessment Outcome: Progressing Toward Goal Goal: Interdisciplinary Rounds/Family Conf Outcome: Progressing Toward Goal Problem: Stroke (Ischemic) (Adult) Goal: Signs and Symptoms of Listed Potential Problems Will be Absent, Minimized or Managed (Stroke) Description: Signs and symptoms of listed potential problems will be absent, minimized or managed by discharge/transition of care (reference Stroke (Ischemic) (Adult) CPG). Outcome: Progressing Toward Goal Problem: Dysphagia (Adult) Goal: Identify Related Risk Factors and Signs and Symptoms Description: Related risk factors and signs and symptoms are identified upon initiation of Human Response Clinical Practice Guideline (CPG) Outcome: Progressing Toward Goal Goal: Functional/Safe Swallow Description: Patient will demonstrate the desired outcomes by discharge/transition of care. Outcome: Progressing Toward Goal Goal: Compensatory Techniques to Improve Safety/Function with Swallowing Description: Patient will demonstrate the desired outcomes by discharge/transition of care. Outcome: Progressing Toward Goal Problem: Patient Care Overview Goal: Plan of Care Review Outcome: Progressing Toward Goal Goal: Individualization & Mutuality Outcome: Progressing Toward Goal Goal: Discharge Needs Assessment Outcome: Progressing Toward Goal Goal: Interdisciplinary Rounds/Family Conf Outcome: Progressing Toward Goal Problem: Stroke (Ischemic) (Adult) Goal: Signs and Symptoms of Listed Potential Problems Will be Absent, Minimized or Managed (Stroke) Description: Signs and symptoms of listed potential problems will be absent, minimized or managed by discharge/transition of care (reference Stroke (Ischemic) (Adult) CPG). Outcome: Progressing Toward Goal Problem: Dysphagia (Adult) Goal: Identify Related Risk Factors and Signs and Symptoms Description: Related risk factors and signs and symptoms are identified upon initiation of Human Response Clinical Practice Guideline (CPG) Outcome: Progressing Toward Goal Goal: Functional/Safe Swallow Description: Patient will demonstrate the desired outcomes by discharge/transition of care. Outcome: Progressing Toward Goal Goal: Compensatory Techniques to Improve Safety/Function with Swallowing Description: Patient will demonstrate the desired outcomes by discharge/transition of care. Outcome: Progressing Toward Goal Problem: Patient Care Overview Goal: Plan of Care Review Outcome: Progressing Toward Goal Goal: Individualization & Mutuality Outcome: Progressing Toward Goal Goal: Discharge Needs Assessment Outcome: Progressing Toward Goal Goal: Interdisciplinary Rounds/Family Conf Outcome: Progressing Toward Goal Problem: Stroke (Ischemic) (Adult) Goal: Signs and Symptoms of Listed Potential Problems Will be Absent, Minimized or Managed (Stroke) Description: Signs and symptoms of listed potential problems will be absent, minimized or managed by discharge/transition of care (reference Stroke (Ischemic) (Adult) CPG). Outcome: Progressing Toward Goal Problem: Dysphagia (Adult) Goal: Identify Related Risk Factors and Signs and Symptoms Description: Related risk factors and signs and symptoms are identified upon initiation of Human Response Clinical Practice Guideline (CPG) Outcome: Progressing Toward Goal Goal: Functional/Safe Swallow Description: Patient will demonstrate the desired outcomes by discharge/transition of care. Outcome: Progressing Toward Goal Goal: Compensatory Techniques to Improve Safety/Function with Swallowing Description: Patient will demonstrate the desired outcomes by discharge/transition of care. Outcome: Progressing Toward Goal Problem: PT - General Goals Goal: Supine <-> Sit Transfers - Patient will perform supine to/from sit transfers with minimal assistance and of 2 people and with use of hospital bed features in order to improve functional mobility and safety. Outcome: Ongoing Goal: Sitting Endurance/Balance - Patient will perform seated balance tasks for 10 minutes with minimal assistance and bilateral UE support Outcome: Ongoing Goal: Sit <-> Stand Transfers - Patient will perform sit to/from stand transfers with moderate assistance and of 2 people and least restrictive device in order to improve functional mobility and safety. Outcome: Ongoing Goal: Stand/Squat Pivot Transfers - Patient will perform stand pivot transfer to/from bed/chair/commode with moderate assistance and of 2 people and least restrictive device in order to improve functional mobility and safety. Outcome: Ongoing Goal: Strength - Patient will demonstrate understanding of exercise program. Outcome: Ongoing Problem: OT - ADLs Goal: Grooming - Patient will complete grooming edge of bed with minimal assistance for improved ability to safely complete ADLs. Outcome: Ongoing Problem: OT - Transfers Goal: Transfers Supine -> Sit - Patient will perform supine to/from sit with flat bed & no rail and maximal assistance to improve participation in ADLs. Outcome: Ongoing Problem: OT - Balance Goal: Balance - Seated - Patient will perform 15 minutes of functional task in sitting with moderate assistance and fair balance to promote safety during self-care activities. Outcome: Ongoing Problem: OT - Cognition Goal: Cognition Simple ADL - Patient will demonstrate improved cognition, completing simple ADL task for 10 minutes with no greater than min cues required to maintain attention. Outcome: Ongoing Problem: OT - Vision Goal: Visual Tracking - Patient will track past midline to left during session with no greater than mod cues to attend to familiar object/person for ADL participation in 5/5 trials. Outcome: Ongoing Problem: Patient Care Overview Goal: Plan of Care Review Outcome: Met This Shift Goal: Individualization & Mutuality Outcome: Met This Shift Goal: Interdisciplinary Rounds/Family Conf Outcome: Met This Shift Problem: Stroke (Ischemic) (Adult) Goal: Signs and Symptoms of Listed Potential Problems Will be Absent, Minimized or Managed (Stroke) Description: Signs and symptoms of listed potential problems will be absent, minimized or managed by discharge/transition of care (reference Stroke (Ischemic) (Adult) CPG). Outcome: Met This Shift Problem: Dysphagia (Adult) Goal: Identify Related Risk Factors and Signs and Symptoms Description: Related risk factors and signs and symptoms are identified upon initiation of Human Response Clinical Practice Guideline (CPG) Outcome: Met This Shift Goal: Compensatory Techniques to Improve Safety/Function with Swallowing Description: Patient will demonstrate the desired outcomes by discharge/transition of care. Outcome: Met This Shift Problem: Patient Care Overview Goal: Discharge Needs Assessment Outcome: Ongoing Problem: Dysphagia (Adult) Goal: Functional/Safe Swallow Description: Patient will demonstrate the desired outcomes by discharge/transition of care. 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] PROCEDURE PERFORMED Procedure(s) (LRB): THROMBECTOMY NONCORONARY ARTERY MECHANICAL PERCUTANEOUS 1ST VESSEL (N/A) PLACEMENT CATH SELECTIVE INTERNAL CAROTID ARTERY W/ ANGIO IPSILAT INTRACRANIAL CAROTID W/ RAD S&I (N/A) PRIMARY CLOSURE Yes, R groin celt INTRAOPERATIVE FINDINGS R IT SALES CONSULTANT, TICI 2 b revascularization of long segment occlusion of R ICA to R M2 SURGEON Surgeon(s) and Role: * Tom Clark MD - Primary ANESTHESIOLOGIST Anesthesiologist: Darian Eagle MD NC MANAGER: Afua Palumbo APRN-NC MANAGER SURGICAL STAFF Gambling Counsellor: Regino Pretty RN Rfid Engineer: Darshan Head; Oneyda Duron Resident Assisting: Tari Duron MD COMPLICATIONS None ESTIMATED BLOOD LOSS Minimal SPECIMENS No specimen sent * No specimens in log * Tari Duron MD November 29, 2023 4:59 PM Operative Report DATE PERFORMED: 11/29/2023 INDICATIONS: 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 PROCEDURE: Diagnostic cerebral angiogram and mechanical thrombectomy with TIC 2b revascularization. DURATION OF PROCEDURE: Approximately 60 minutes. SURGEON(S): Tom Clark MD was the attending physician. He supervised the entire procedure. Tari Duron MD was the resident. Both actively participated in catheter manipulation and were present for the entire procedure. VESSELS ANGIOGRAMMED: Right common femoral artery, right common carotid artery, right internal carotid artery, left common carotid artery, left internal carotid artery, left subclavian artery, and right MCA. ANESTHESIA: Local in the right groin with lidocaine. Conscious sedation was administered by the nurse under the supervision of the attending anesthesiologist. Pre, intra, and post conscious sedation monitor records are available in the chart. PAST MEDICAL HISTORY: Aroldo Vargas is a 78-year-old female with a past medical history of hypertension, hyperlipidemia, CAD, dementia, TIA, who presented with acute onset left hemiplegia, facial droop, and slurred speech. Last known well was 2145 hours on November 28, 2023. She was found by the family this morning with left-sided weakness, facial droop, and slurred speech. She was seen on telestroke at the outside hospital with an NIH stroke scale of 8, and CTA demonstrated right ICA occlusion extending into the right M1. She was outside the window for thrombolytics. On arrival to [facility], her NIH stroke scale was 16. MRS was 2. A CTP demonstrated a mismatch. Due to this, it was recommended that she go to surgery for thrombectomy. Due to the emergent nature of the disease, we proceeded under emergency consent. DESCRIPTION OF PROCEDURE: The patient was then brought to the angiography suite, positioned supine on the operating table, and prepped and draped in the standard sterile fashion. Access to the vascular system was gained with a single puncture of the right femoral artery. An 8-Bahamian sheath was introduced in the right common femoral artery. A limited femoral angiogram was performed. Images were obtained in the AP plane. Next, a Profitero guide catheter was advanced over the Glidewire into the aortic arch, and the right common carotid artery was selected. The wire was then advanced into the right internal carotid artery, and the TracStar was advanced over the wire into the right internal carotid artery. Next, the AP and lateral views of the right internal carotid circulation were performed. Following this, a Zoom 0.071 was advanced over a Marksman and Synchro soft wire into the right MCA. Next, the Zoom 0.071 was advanced into the right ICA terminus into the right M1, and aspiration thrombectomy was performed. A postprocedural angiogram was performed. Following this, the Zoom 0.071 was again advanced over the Marksman and TracStar into the right M3, and a solitaire stent retriever was deployed. This was permitted to sit for 5 minutes, and then the stent retriever was removed under fluoroscopic guidance, and a postprocedural angiogram was performed. Next, the Zoom 0.071 was again advanced over the Marksman and the microwire into the right M3. The microwire was removed, and an angiogram was performed in the AP and lateral plane with the microcatheter into the right MCA. Next, an Dwain stent retriever was deployed within the right M3 to M2 and permitted to set up for 5 minutes. The stent retriever was then removed under constant aspiration and fluoroscopic guidance, and a postprocedural angiogram was performed. Following this, the Zoom 0.071 was again advanced over the microcatheter system into the right MCA, and aspiration thrombectomy was performed. A postprocedural angiogram was again performed. Next, the Zoom 0.071 was again advanced over the Marksman into the right MCA, and the Marksman was advanced into the M3. The embo trap stent retriever was then deployed within the right M3 into the right M2. This was permitted to set for 5 minutes. Next, the M1 tap was noted on fluoroscopic guidance into the Zoom 0.071, and both were pulled out under constant aspiration. A postprocedural angiogram was then performed. The TracStar was pulled back to the right common carotid artery, and AP and lateral views of the right carotid circulation of the neck were performed. The TracStar was then removed, and a Profitero glide catheter was advanced over the Glidewire into the aortic arch and reformatted. The left common carotid artery was selected. AP and lateral views of the left carotid circulation in the neck were performed. The catheter was then advanced into the left internal carotid artery. AP and lateral views of left internal carotid circulation of the head were performed. The catheter was then withdrawn, reformatted, and the left subclavian artery was selected. AP and lateral views of the posterior circulation were obtained by the left vertebral artery. The catheter was then removed. The sheath was removed, and hemostasis was obtained with a Celt device. The patient was then transported to the PACU in stable condition. FINDINGS: Right common carotid artery: The bifurcation was smooth without irregular calcification or stenosis with respect to the distal right internal carotid artery. Following thrombectomy, there was antegrade flow within the internal and external carotid arteries. There was normal opacification of the ECA branches. Right internal carotid artery: Preprocedure there was occlusion of the right internal carotid artery at the ICA terminus. Following initial thrombectomy and stent retriever thrombectomy, there was persistent occlusion up to the M 2, and following the final round of aspiration thrombectomy, there was TICI 2b revascularization of the long segment occlusion. There was no evidence of aneurysm or early draining vein. There was a small amount of residual thrombus within the right distal M2. This was non-flow limiting. Left common carotid artery: The bifurcation was smooth without irregular calcification or stenosis with respect to this. Left internal carotid artery: There was normal opacification of the left ECA branch superior dissection. Left internal carotid artery: There was no evidence of aneurysm, focal stenosis, or early draining vein. There was antegrade flow within the internal cerebral arteries. The capillary and venous phases were unremarkable. Left subclavian artery: There was no evidence of aneurysm, focal stenosis, or early draining vein. There was antegrade flow within the vertebrobasilar system. Right common femoral artery: Puncture point in the right common femoral artery was acceptable for placement of closure device. COMPLICATIONS: None immediate. IMPRESSION: TICI 2b revascularization of extensive right anterior circulation occlusion from ICA to Right M2. In room time 1545 hours Groin puncture 1551 hours Cross lesion one 1557 hours Cross lesion two 1600 hours Cross lesion three 1608 hours, TICI 2b revascularization 1641 hours Dictated By: MD Tari Ratliff MD ASZ/MedQ JOB: [id number] DOC: [id number] Associated attestation - Tom Clark MD - 12/07/2023 8:45 AM EST Agree with above as written. I was present for the entire procedure. documented in this encounter [facility] 12-21-2023 History of Present illness Narrative Care Management Discharge Note Selected Continued Care - Admitted Since 11/29/2023 Destination Coordination complete. Service Provider Selected Services Address Phone Fax Patient [facility] [place] [phone] -- -- Transportation Transport Request Mode of Transfer: S Name of Discharge Transport Company: Other Discharge Transport ETA: 12/21 @1500 Patient medically stable for discharge per physician/medical team. CAN CRIMPER arranged transportation as listed above. Patient will discharge to the [facility]. Insurance authorization has been received and a PASRR has been completed for discharge. Facility, Patient/Family, Bedside RN, CCM, and medical team are aware and agreeable to transportation time. Social work will remain available to assist as needed. ANTONIO Valero, WOOD GRAINER Transportation Engineering Technician Available by Secure Chat 12/21/23 100 Transport Request Mode of Transfer BLS Name of Discharge Transport Company Other Discharge Transport ETA 12/21 @1500 [employer] with pick pt up at 3:00pm today, 12/21. [employer]: [phone] informed me that [facility] arrived 3 hours early for transport. I called the facility supervisor at [employer] and she confirmed that the transport was set for 3pm. She is not sure why they arrived 3 hours early and she apologizes for the confusion. Francia Capellan CM Device Engineer Placement Plan Expected Discharge Date: 12/24/2023 Referred Level of Care: SNF Barriers: Transportation Current Referrals and Status: [facility] - Available Pre-cert received for SNF. PASRR completed for discharge. Discharge pending confirmation of transportation. Son updated by phone. ANTONIO Valero, SANDRITA Transportation Engineering Technician Available by Secure Chat Placement Plan Expected Discharge Date: 12/21/2023 Referred Level of Care: SNF Barriers: Pre-cert, medical readiness, transportation. Current Referrals and Status: [facility] - Available Pre-cert pending for SNF. Uploaded clinicals to [facility]. ANTONIO Valero, SANDRITA Transportation Engineering Technician Available by Secure Chat NEUROVASCULAR STROKE SERVICE Daily Progress Note IDENTIFYING INFORMATION Aroldo Vargas MR# [id number] 12/20/2023 HISTORY OF PRESENT ILLNESS Aroldo Vargas is a 78 y.o. female with PMH significant for HTN, HLD, CAD, dementia, TIA who presented to an [facility] after family found her with L hemiplegia, L facial droop and slurred speech. Seen on tele, NIHSS 8. CTA showed R ICA occlusion. She was out of the window for IV thrombolytics. Transferred to [facility] for further management. LKW 2145 on 11/28. On arrival to [facility], NIHSS 16. CTH with evolving R MCA territory stroke. CTP with R MCA mismatch. mRS 2 at baseline. 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 INTERVAL HISTORY 11/30: Brain MRI pending. 12/05: Transfer out of [facility]. 12/06: Dobbhoff dislodged overnight, replaced, restrained. Consult ID for positive blood cultures, repeat cultures. Daughter updated at bedside. UE venous duplex. 12/07: atbx complete, NETBACKUP ADMINISTRATOR to re-eval, GI consulted for PEG planning 12/08: No overnight events. PEG likely early next week. 12/09: NAEON. 12/10: exam stable, discussed with GI, PEG tentative for tomorrow 12/11: PEG planned today. 12/12: PEG planned for today, vital signs stable. 12/13: GI unable to place PEG, consult gen surg. CT A/P pending. Exam and vitals stable. 12/14: CT A/P completed. Dysphagia improving, FEES Friday 12/15: No overnight events. Planning for FEES Saturday 12/16: Increase in NIH overnight, back to baseline. NIHSS q12, de-escalate labs. Bowel regimen PRN. 12/17: FEES complete, NPO recommended, follow up with surgery about PEG timing, carotid duplex to eval carotid stenosis 12/18: PEG placed afternoon. MARINO carotid dopplers without significant ICA stenosis. 12/19: DEE, plan to start TF 24hs post PEG ~1400, start precert for SNF 12/20: Tolerating TF through PEG well, SNF precert pending PHYSICAL EXAM Gen: awake, alert, NAD HEENT: normocephalic, no scalp lesions or tenderness Neck: trachea midline No JVD CV: +S1S2, RRR, no m/r/g Lungs: Respirations unlabored with equal chest rise Abd: soft, nontender, nondistended, PEG and abdominal binder present Extrem: Warm and well perfused Neuro: Oriented to name and month, follows simple commands, left hemiplegia CN II - Does not blink to threat on left CN II/III - PERRLA CN III/IV/ - Right gaze preference CN V - CN VII - Left facial droop CN VIII - Hearing intact CN X - Cough present CN XI - Left shoulder weakness CN XII - MOTOR EXAMINATION: Left hemiplegia NIHSS 12/20/2023 Provider NIH Stroke Scale NIH Interval (Provider): daily NIH Level of Conciousness (Provider): 0 NIH LOC Questions (Provider): 1 NIH LOC Commands (Provider): 0 NIH Best Gaze (Provider): 1 NIH Visual (Provider): 2 NIH Facial Palsy (Provider): 2 NIH Left Arm Motor (Provider): 4 NIH Right Arm Motor (Provider): 0 NIH Left Leg Motor (Provider): 4 NIH Right Leg Motor (Provider): 1 NIH Limb Ataxia (Provider): 0 NIH Sensory (Provider): 1 NIH Best Language (Provider): 1 NIH Dysarthria (Provider): 1 NIH Extinction and Inattention (Provider): 1 NIH Total Score (Provider): 19 ASSESSMENT AND PLAN Neuro: Acute right hemispheric strokes, Right ICA/MCA occlusion s/p TICI 2b revascularization: CTH: Evolving R MCA territory stroke, no hemorrhage [facility] CTA brain/neck: R ICA/M1 occlusion CTP: Large R MCA mismatch with small right basal ganglia stroke MRI brain: Acute infarcts in the right RUBY and MCA territories with hemorrhagic transformation in the right basal ganglia and small IVH. TTE: EF >70% EKG on admission: NSR, QTc 429 LDL 130 HgbA1c 5.3 Repeat CTA brain/neck: ICA now open but there is occlusion of right M1-M2 junction. MARINO Carotid Doppler: No significant (<50% 2/2 calcified plaques) ICA stenosis MARINO -Stroke Etiology (TOAST Criteria): Cryptogenic -Antiplatelet plan: Aspirin 81 mg daily -Statin therapy: Lipitor 40 mg daily -Blood Pressure goal: SBP <220 -Mobile cardiac telemetry for 30 days at discharge Ischemic Stroke Core Measures -NIHSS on admission 16 -Patient has been started on Mechanical (SCD's) and Pharmacological (SQ heparin/Lovenox) DVT prophylaxis. -Antiplatelet therapy has been initiated, Aspirin 81mg daily. -Anticoagulation therapy was not indicated for this patient -Patients LDL 130 and HgbA1c 5.3 were checked and the patient will be discharged on Atorvastatin daily. -Dysphagia screening ordered, and will be completed prior to patient receiving oral intake. -Stroke education booklet has been ordered and will be provided by the RN that includes both written and verbal education to the patient and family regarding ischemic strokes. We have reviewed the patient's personal modifiable risk factors including: HTN, HLD as well as education on reducing these risk factors -Patient is being assessed for Rehab by PT/OT/Speech and PM&R if indicated. HTN, POA: Nicardipine stopped 12/04 -Continue lisinopril 40 mg daily -Carvedilol 12.5 mg every 12 hours Dysphagia: Seen by speech, last 12/05, recommend NPO -Tube feeds via Dobbhoff -Discussed PEG tube with daughter on 12/06 -GI consulted 12/07, PEG unsuccessful 12/12 -General surgery consulted, CT A/P completed. -12/17 FEES done, NPO recommend, surgery paged for PEG timing -12/18 PEG placed per GI surgery team Likely Aspiration pneumonia: -completed 5 days ceftriaxone 2 gm daily on 12/07 Bacteremia: likely contaminant -Blood cultures from 12/02 and 12/04 show staphylococcus hominis in 1/2 sets -Consult ID: blood cultures likely contaminated, repeat blood cultures with no growth, signed off -Completed ceftriaxone 5 days as above Bilateral UE swelling: -BUE duplex negative for DVT, acute superficial thrombus in BUE Other problems: Complexity. Obesity Body mass index is 36 kg/m . - Follow with PCP for dietary and lifestyle modifications. Disposition: Aroldo Vargas will be discharged to SNF pending insurance precert. Natalia Mohamud, ELECTRICAL CONTINUITY TESTER-COLLAR SETTER 12/20/2023 10:44 AM VITAL SIGNS Temp: [96.7 F (35.9 C)-97.8 F (36.6 C)] 97.8 F (36.6 C) Pulse (Heart Rate): [61-66] 66 Resp Rate: [16-18] 16 BP: (116-151)/(55-66) 151/66 O2 Sat (%): [93 %-95 %] 95 % Oxygen Therapy: Oxygen Therapy O2 Sat (%): 95 % O2 Device: room air Intake/Output: Intake/Output Summary (Last 24 hours) at 12/20/2023 1044 Last data filed at 12/20/2023 0915 Gross per 24 hour Intake 913.75 ml Output 250 ml Net 663.75 ml LABS/CULTURES Lab Results Component Value Date WBC 11.96 (H) 12/19/2023 HGB 10.8 (L) 12/19/2023 HCT 34.4 (L) 12/19/2023 PLATELET 320 12/19/2023 PLATELET 320 12/19/2023 MCV 96.9 12/19/2023 Lab Results Component Value Date SODIUM 139 12/19/2023 POTASSIUM 4.2 12/19/2023 CHLORIDE 103 12/19/2023 CO2 27 12/19/2023 BUN 19 12/19/2023 CREATSERUM 0.56 12/19/2023 GLUCOSE 91 12/19/2023 Lab Results Component Value Date CHOLESTEROL 186 11/30/2023 TRIG 86 11/30/2023 HDL 39 (L) 11/30/2023 LDLCALC 130 (H) 11/30/2023 Lab Results Component Value Date HGBA1C 5.3 11/30/2023 Lab Results Component Value Date ALBUMIN 3.4 (L) 11/30/2023 , Lab Results Component Value Date CPK 82 11/29/2023 IMAGING/DIAGNOSTIC STUDIES VASC DUPLEX CAROTID BILATERAL Final Result CT ABDOMEN/PELVIS WITH CONTRAST Final Result IMPRESSION: 1. Few dilated loops of transverse colon between portions of the stomach and the abdominal wall. 2. No acute findings in the abdomen and pelvis. ABDOMEN 1 VIEW PORTABLE Final Result IMPRESSION: Feeding tube with tip in the expected location of the pyloric region. If postpyloric position is desired further advancement is recommended. DUPLEX VENOUS EXTREMITY UPPER BILATERAL Final Result XR ABDOMEN 1 VIEW Final Result IMPRESSION: Interval retraction of the Dobbhoff tube with the tip in the distal stomach pointed superiorly into the left. If postpyloric positioning is needed, repositioning prior to advancement is recommended. ABDOMEN 1 VIEW PORTABLE Final Result IMPRESSION: Dobbhoff tube remains coiled in the stomach with the tip in proximal stomach body. Discussed with Joycelyn Lala RN at 2:48am on Dec 06, 2023. I personally viewed and interpreted these images and I have reviewed and approved this report. ABDOMEN 1 VIEW Final Result IMPRESSION: Dobbhoff tube is looped in the distal stomach with tip in the proximal stomach. Repositioning/advancement recommended. ABDOMEN 1 VIEW Final Result IMPRESSION: Dobbhoff tube tip in the distal stomach. CHEST 1 VIEW PORTABLE Final Result IMPRESSION: No radiographic evidence of acute cardiopulmonary abnormality. ANGIO BRAIN/NECK Final Result IMPRESSION: 1. 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 2. Interval occlusion at the M1-M2 junction beginning at the origin of the dominant inferior branch of the right middle cerebral artery which is associated with poor distal collateralization. HEAD WITHOUT CONTRAST Final Result IMPRESSION: Evolving infarcts in the right RUBY and MCA distribution with hemorrhagic transformation in the right basal ganglia with unchanged focal hematoma. Mildly mass effect with leftward shift of 4 mm. CHEST 1 VIEW PORTABLE Final Result IMPRESSION: New bibasilar atelectasis status post placement of partially visualized feeding tube. HEAD WITHOUT CONTRAST Final Result IMPRESSION: Evolving infarcts in the right RUBY and MCA distribution with petechial hemorrhagic transformation in the right basal ganglia with unchanged focal hematoma. Mildly progressed mass effect with leftward shift of 4 mm. ABDOMEN 1 VIEW Final Result IMPRESSION: Dobbhoff tube with tip projecting over the pyloroduodenal region. Consider advancement to confirm postpyloric position. BRAIN WITHOUT CONTRAST Final Result IMPRESSION: Acute infarcts in the right RUBY and MCA territories with hemorrhagic transformation in the right basal ganglia and small volume intraventricular hemorrhage. Mass effect with mild leftward shift of 2 mm. HEAD WITHOUT CONTRAST Final Result IMPRESSION: No interval change in acute infarcts in the right RUBY and MCA distribution with a 1.4 cm hematoma in the right basal ganglia as confirmed on dual-energy CT. Similar mass effect and leftward shift of 3 mm. HEAD WITHOUT CONTRAST Final Result IMPRESSION: Evolving infarct involving a large portion of the right MCA vascular territory as described above, increased in extent in comparison to prior head CT. Hyperdensities involving the right basal ganglia likely represent a combination of hemorrhage and contrast staining. A more focal and hyperdense component involving the right globus pallidus is favored to represent hematoma. Further characterization and distinction of hemorrhage/contrast could be obtained with a dual energy CT if clinically indicated. The suspected hemorrhagic component is new in comparison to previous head CT from November 29, 2023. There is associated mass effect with effacement of the right lateral ventricle but minimal leftward midline shift at this point in time. Findings communicated to Dr. Powers on 11/30/2023 at 10:55 AM. 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 There is distal reconstitution of several right middle cerebral artery branches, likely related to collateral flow. Occlusion of the right M1 segment with distal reconstitution, as above. Short segment of occlusion of the proximal right A1 segment. Remainder of the anterior cerebral arteries are patent, without significant stenosis. CARDIOGRAM Final Result XR ABDOMEN 1 VIEW PORTABLE Final Result FINDINGS/IMPRESSION: Tubes: Feeding tube tip is just entering the duodenum. The lower pelvis was excluded. Normal bowel gas pattern. No definite pneumoperitoneum. ABDOMEN 1 VIEW PORTABLE Final Result IMPRESSION: Feeding tube with tip in the proximal stomach. If postpyloric position is desired further advancement is recommended. SPINE CERVICAL WITHOUT CONTRAST Final Result IMPRESSION: 1. No acute fracture or traumatic malalignment. 2. Degenerative changes as above. I personally viewed and interpreted these images and I have reviewed and approved this report. CEREBRAL PERFUSION ANALYSIS Final Result IMPRESSION: Large perfusion defect involving the right MCA and reticular striate territories. Completed infarct core in the basal ganglia with large volume of ischemic penumbra. STROKE HEAD-STROKE ALERT ONLY Final Result IMPRESSION: Acute nonhemorrhagic infarct in the right basal ganglia lenticulostriate distribution. No significant intracranial mass effect. Findings were discussed with Ryley Licea at 3:06 PM on November 29, 2023. I personally viewed and interpreted these images and I have reviewed and approved this report. [facility] FOR NEURO ENDOVASCULAR (Results Pending) MEDICATIONS aspirin 81 mg PEG Tube Daily Atorvastatin 40 mg PEG Tube QHS carveDILOL 12.5 mg PEG Tube Q12HNS enoxaparin 40 mg Subcutaneous Daily lidocaine 2 patch Transdermal Q24H Lisinopril 40 mg PEG Tube Daily Associated attestation - Charli Kang MD - 12/21/2023 7:41 AM EST Attending Physician Note (GC) I interviewed and examined this patient with the DOOR LINER HELPER. I reviewed the history and exam detailed in the note. I agree with the medical decision making with the following comment(s): 78 y/o female with left hemiparesis due to right MCA stroke s/p MT with marked residual deficits, although slight improvement over the course of this week. PEG placed, tolerating TF. On appropriate secondary prevention. Anticipate SNF discharge in the next couple days. Acute Care NETBACKUP ADMINISTRATOR Treatment Note Diet Recommendations: Recommended Method of Nutrition: NPO Recommended Medication Administration (as appropriate per MD): Non-Oral Type of Cues/Supervision: 1:1 supervision Assistance: nurse/aide (With ice chips) OK for ice chips in order to promote frequency of volitional swallow, decrease risk for atrophy from swallow dis use, and promote improved secretion management. Please provide frequent/thorough oral care as this has been shown to prevent aspiration pneumonia in NPO patients Best mode of Communication: Verbal Communication Strategies: - Decrease distractions - Ask for re-teaching Discharge Recommendations: Based on the below outcome measures/assessment score(s), FEES, and NETBACKUP ADMINISTRATOR clinical judgment, discharge destination recommendation is: Deferred to PT/OT recomendations related to mobility (ongoing speec therapy services for swallowing and communication) Barriers to discharge home: Inability to communicate basic wants/needs, Need for 1:1 assist to ensure safety with all PO intake Supporting factors for discharge setting: Impaired speech and language skills limiting ability to communicate basic wants/needs, Impaired swallow function limiting nutritional status and safety with oral intake, Impaired cognitive skills limiting safety/insight Acute NETBACKUP ADMINISTRATOR Outcomes Tracking Communicate basic wants and needs?: yes Demo insight/appreciation of deficits?: no Complete basic problem solving?: no Current therapy frequency recommendation in acute: Speech/Lang/Cog Therapy Frequency: 3 times a week Swallow Therapy Frequency: 3 times a week Clinical Impression: Swallowing: Patient presents with ongoing presumed oropharyngeal dysphagia consistent with FEES completed 12/17 (see report) likely in relation to R MCA CVA, prolonged NPO status, lethargy, dementia. Patient this date was able to complete trials of thin and puree solids and perceived increased fatigue during trials and increased concern for airway protection with thin (coughing as trials progressed) and slowing oral phase as puree trials progressed. Recommend continuing plan of care for dysphagia. Language: Patient presents with ongoing cognitive communication disorders s/p R MCA CVA and baseline dementia. Question if patient is at/near baseline given dementia. Patient this date with perceived improved dysarthria, 100% intelligibility. Patient is able to demonstrate orientation to self only, limited insight into deficits or reason for hospital admission. Expressive/receptive language are suspect to be in-tact. Continue plan of care for cognitive/communication deficits. Subjective: Patient sleeping upon entry to room but alerts to verbal stimuli. Able to maintain alertness throughout session though complaints of fatigue. Patient this date is pleasant and agreeable to trials for swallowing. Patient Safety Communication Prior to Visit: Nursing Pain: General Pain Documentation (Adult, OB, Peds) Presence of Pain: denies pain/discomfort Presence of Pain Score (Auto-calculated): 0 Respiratory Status: O2 Sat (%): 98 % (12/19 0749) O2 Device: room air (12/19 0815) Flow (L/min): 1 (12/19 0500) Acute NETBACKUP ADMINISTRATOR Goals Plan of Care by AMADO Guajardo at 12/19/2023 11:20 AM Version 1 of 1 Problem: NETBACKUP ADMINISTRATOR - Cognition Goal: Ongoing Assessment - Patient will participate in ongoing dynamic assessment of motor speech, expressive/receptive language, and cognitive-linguistic skills across 1 session to better assess deficits and most appropriately guide NETBACKUP ADMINISTRATOR plan of care Outcome: Ongoing Note: Patient this date participated in ongoing dynamic assessment including o-log. Continue assessment is recommended to evaluate additional plan of care. Intelligibility is 100%, suspect dysarthria resolved. Goal: Orientation Log - Patient will recall/implement use of orientation strategies, with maximum cues per assessment protocol, to demonstrate improved awareness and insight as measured by achieving a 25/30 on the O-Log Outcome: Progressing Toward Goal Note: Patient scored a 0/30 on the orientation log, patient stating that she is in [place], at work, believes that it is Sunday. Is able to state her full name. Problem: NETBACKUP ADMINISTRATOR - Cognition Goal: Problem Solving in Hospital - Patient will complete basic problem solving tasksin her environment, providing rationale in at least 75% of opportunities in their immediate environment with fading cues to support self-advocacy and independence Outcome: Ongoing Note: Not targeted due to patient with poor insight into reason for admission, etiology and deficits, session focused on these prior to basic problem solving tasks. Problem: NETBACKUP ADMINISTRATOR - Dysphagia Goal: Bolus Challenge Goal 1 Description: Patient will swallow therapeutic p.o.trials/bolus challenge swallows (with NETBACKUP ADMINISTRATOR only) of puree solids x10-20 trials, given mod cues, without clinical signs/symptoms of airway penetration/aspiration and without endorsing >5/10 fatigue over the course of 1/2 sessions to progress towards potential readiness for a repeat instrumental swallow evaluation. Outcome: Progressing Toward Goal Note: Patient accepted X16 trials of puree this date with assistance from NETBACKUP ADMINISTRATOR to feed. Patient with mild anterior spillage from left side of oral cavity. As trials continued, patient with increased oral holding length prior to onset of swallow. Oral cavity is clear after swallow. Continue goal. Goal: Bolus Challenge Goal 2 Description: Patient will swallow therapeutic p.o.trials/bolus challenge swallows (with NETBACKUP ADMINISTRATOR only) of water via straw/sup x10-20 trials, given mod cues, for use of strategies to improve bolus control/timing of the initiation of oral transit/pharyngeal swallow without clinical signs/symptoms of airway penetration/aspiration and without endorsing >5/10 fatigue over the course of 1-2 sessions to determine possible readiness for a repeat instrumental swallow evaluation. Outcome: Progressing Toward Goal Note: Patient was able to complete X20 trials of thin liquids via straw sips this date. Patient required moderate cueing for small single sips (attempting to take continuous). Throat clear and cough noted to increase as trials increased. Continue goal Patient Instruction/Education this session: Patient did not demonstrate understanding of language or swallowing care plan Plan for next session: bolus challenge trials, orientation NETBACKUP ADMINISTRATOR Outcomes: The Orientation Log (O-Log) is designed to be a quick quantitative measure of orientational status for use at bedside with rehabilitation inpatients. Place, time, and situational (Etiology/Event + Pathology/Deficits) domains are assessed. Patient responses are scored according to the following criteria: 3 = correct spontaneously or upon first free recall attempt; 2 = correct upon logical cueing (e.g., "That was yesterday, so today must be "); 1 = correct upon multiple choice or phonemic cuing; and 0 = incorrect despite cueing, inappropriate response, or unable to respond. Patient scored 0/30 this date. Patient with deficits in all areas of orientation, suspect dementia impacting. NETBACKUP ADMINISTRATOR Co-Eval/Treatment Information Co-evaluation/co-treatment performed?: No simultaneous skilled care performed PPE used during patient interaction: facemask, gloves Speech Language Pathologist: AMADO Guajardo Time In: 1020 Time Out: 1037 Total Visit Time: 17 minutes Total Treatment Time (skilled, billable minutes): 17 minutes Patient location/status at end of session: bed with head of bed elevated Patient alarms at end of session: none altered Needs in reach. NETBACKUP ADMINISTRATOR Evaluation and Treatment Time Speech Therapy - Individual 56547: 8 Swallowing Dysfunction Treatment 38168: 9 Upon discontinuation of Acute Care Speech Therapy Services or patient discharge from the hospital this note represents the current Speech Therapy Discharge Summary Placement Plan Expected Discharge Date: 12/21/2023 Referred Level of Care: SNF Barriers: Pre-cert, medical readiness, transportation. Current Referrals and Status: [facility] - Available Patient had PEG placement yesterday. Requested facility start pre-cert. Uploaded clinicals to ANTONIO Rosenbaum, WOOD GRAINER Transportation Engineering Technician Available by Secure Chat I saw and independently examined Aroldo Vargas today. I discussed my findings and the therapeutic plan with the resident. I agree with the resident's history, physical examination, and medical decisions as outlined. - May use PEG for TF - FU post-procedural labs - Abd binder at all times Jaleesa Shah MD Minimally Invasive Surgery/ Bariatric Fellow Clinical Instructor, General Surgery [facility] Bariatric Surgery Progress Note Subjective: Pt asleep on arrival. Pain is under control. Nausea is under control. S/p EGD with PEG with Jaleesa Shah MD on 12/18/2023 PMHx: Class III Severe Obesity, Body mass index is 36 kg/m ., Stroke, ischemic, part of presentation of ED for current hospital Chronic anemia of unknown source, unknown if c/b iron deficiency Dysphagia POA secondary to stroke Hyperlipidemia, no medical management note, POA HTN, primary on medical management, POA Dementia, chronic, POA CAD, degree of stenosis is unknown, surgical intervention unknown, on metoprolol 200 mg daily POA Objective: BP 127/60 (BP Location: Left arm, BP Position: Lying) Pulse 57 Temp 97.5 F (36.4 C) (Oral) Resp 15 Ht 1.575 m (5' 2") Wt 89.3 kg (196 lb 12.8 oz) SpO2 94% BMI 36.00 kg/m Smoking Status Never I/O last 3 completed shifts: In: 2144.7 [I.V.:2054.7; NG/GT:90] Out: 1460 [Urine:1370; Other:90] Physical Exam: Gen: laying in bed, somnolent in no acute distress Lungs: unlabored breathing Cardiac: regular rate and rhythm on lunchroom monitor Abdomen: soft, appropriately-tender, non-distended Labs: WBC/Hgb/Hct/Plts: --/--/--/320 (12/19 519) Assessment/Plan: Aroldo Vargas is a 78 y.o. female who is 1 Day Post-Op following Procedure(s) (LRB): EGD with PEG (N/A). All medical management is per primary team. Please refer to primary team for addition management following immediate post operative period. - May start feeds through PEG 24 hours after placement ( ~1400 12/19/23) - Keep abdominal binder on to prevent dislodgement For billing purposes: Complexity. Hypocalcemia - Continue to monitor and replete. Obesity Body mass index is 36 kg/m . - Follow with PCP for dietary and lifestyle modifications. Any conditions listed below are present on admission unless otherwise specified. .Please refer to PMHx above ALL URGENT ISSUES SHOULD BE PAGED TO THE ABOVE PAGER - IHIS chat is not a reliable method of communication with a surgical service at any time. - The person who wrote this note may be in the operating room, off service, post call, or otherwise unavailable. Nori Gabriel MD, 12/19/2023 7:39 AM NEUROVASCULAR STROKE SERVICE Daily Progress Note IDENTIFYING INFORMATION Aroldo Vargas MR# [id number] 12/19/2023 HISTORY OF PRESENT ILLNESS Aroldo Vargas is a 78 y.o. female with PMH significant for HTN, HLD, CAD, dementia, TIA who presented to an [facility] after family found her with L hemiplegia, L facial droop and slurred speech. Seen on tele, NIHSS 8. CTA showed R ICA occlusion. She was out of the window for IV thrombolytics. Transferred to [facility] for further management. LKW 2145 on 11/28. On arrival to [facility], NIHSS 16. CTH with evolving R MCA territory stroke. CTP with R MCA mismatch. mRS 2 at baseline. 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 INTERVAL HISTORY 11/30: Brain MRI pending. 12/05: Transfer out of [facility]. 12/06: Dobbhoff dislodged overnight, replaced, restrained. Consult ID for positive blood cultures, repeat cultures. Daughter updated at bedside. UE venous duplex. 12/07: atbx complete, NETBACKUP ADMINISTRATOR to re-eval, GI consulted for PEG planning 12/08: No overnight events. PEG likely early next week. 12/09: NAEON. 12/10: exam stable, discussed with GI, PEG tentative for tomorrow 12/11: PEG planned today. 12/12: PEG planned for today, vital signs stable. 12/13: GI unable to place PEG, consult gen surg. CT A/P pending. Exam and vitals stable. 12/14: CT A/P completed. Dysphagia improving, FEES Friday 12/15: No overnight events. Planning for FEES Saturday 12/16: Increase in NIH overnight, back to baseline. NIHSS q12, de-escalate labs. Bowel regimen PRN. 12/17: FEES complete, NPO recommended, follow up with surgery about PEG timing, carotid duplex to eval carotid stenosis 12/18: PEG placed afternoon. MARINO carotid dopplers without significant ICA stenosis. 12/19: DEE, plan to start TF 24hs post PEG ~1400, start precert for SNF PHYSICAL EXAM Gen: NAD HEENT: normocephalic, no scalp lesions or tenderness Neck: trachea midline CV: +S1S2, RRR, no m/r/g Lungs: Respirations unlabored with equal chest rise Abd: soft, nontender, nondistended Extrem: Warm and well perfused Neuro: Opens eyes to speech, follows simple commands, states full name, disoriented to month, L hemiplegia CN II - Does not blink to threat on left CN II/III - PERRLA CN III/IV/ - Right gaze deviation CN V - CN VII - Left facial droop CN VIII - Hearing intact CN X - Cough present CN XI - Left shoulder weakness CN XII - MOTOR EXAMINATION: Left hemiplegia NIHSS 12/19/2023 Provider NIH Stroke Scale NIH Interval (Provider): daily NIH Level of Conciousness (Provider): 1 NIH LOC Questions (Provider): 1 NIH LOC Commands (Provider): 0 NIH Best Gaze (Provider): 1 NIH Visual (Provider): 2 NIH Facial Palsy (Provider): 1 NIH Left Arm Motor (Provider): 4 NIH Right Arm Motor (Provider): 0 NIH Left Leg Motor (Provider): 4 NIH Right Leg Motor (Provider): 1 NIH Limb Ataxia (Provider): 0 NIH Sensory (Provider): 1 NIH Best Language (Provider): 1 NIH Dysarthria (Provider): 1 NIH Extinction and Inattention (Provider): 1 NIH Total Score (Provider): 19 ASSESSMENT AND PLAN Neuro: Acute right hemispheric strokes, Right ICA/MCA occlusion s/p TICI 2b revascularization: CTH: Evolving R MCA territory stroke, no hemorrhage OSH CTA brain/neck: R ICA/M1 occlusion CTP: Large R MCA mismatch with small right basal ganglia stroke MRI brain: Acute infarcts in the right RUBY and MCA territories with hemorrhagic transformation in the right basal ganglia and small IVH. TTE: EF >70% EKG on admission: NSR, QTc 429 LDL 130 HgbA1c 5.3 Repeat CTA brain/neck: ICA now open but there is occlusion of right M1-M2 junction. MARINO Carotid Doppler: No significant (<50% 2/2 calcified plaques) ICA stenosis MARINO -Stroke Etiology (TOAST Criteria): Cryptogenic -Antiplatelet plan: Aspirin 81 mg daily -Statin therapy: Lipitor 40 mg daily -Blood Pressure goal: SBP <220 -Mobile cardiac telemetry for 30 days at discharge Ischemic Stroke Core Measures -NIHSS on admission 16 -Patient has been started on Mechanical (SCD's) and Pharmacological (SQ heparin/Lovenox) DVT prophylaxis. -Antiplatelet therapy has been initiated, Aspirin 81mg daily. -Anticoagulation therapy was not indicated for this patient -Patients LDL 130 and HgbA1c 5.3 were checked and the patient will be discharged on Atorvastatin daily. -Dysphagia screening ordered, and will be completed prior to patient receiving oral intake. -Stroke education booklet has been ordered and will be provided by the RN that includes both written and verbal education to the patient and family regarding ischemic strokes. We have reviewed the patient's personal modifiable risk factors including: HTN, HLD as well as education on reducing these risk factors -Patient is being assessed for Rehab by PT/OT/Speech and PM&R if indicated. HTN, POA: Nicardipine stopped 12/04 -Continue lisinopril 40 mg daily -Carvedilol 12.5 mg every 12 hours Dysphagia: Seen by speech, last 12/05, recommend NPO -Tube feeds via Dobbhoff -Discussed PEG tube with daughter on 12/06 -GI consulted 12/07, PEG unsuccessful 12/12 -General surgery consulted, CT A/P completed. -12/17 FEES done, NPO recommend, surgery paged for PEG timing -12/18 PEG placed per GI surgery team, plan to resume TF 24hr post PEG ~1400 Likely Aspiration pneumonia: -completed 5 days ceftriaxone 2 gm daily on 12/07 Bacteremia: likely contaminant -Blood cultures from 12/02 and 12/04 show staphylococcus hominis in 1/2 sets -Consult ID: blood cultures likely contaminated, repeat blood cultures with no growth, signed off -Completed ceftriaxone 5 days as above Bilateral UE swelling: -BUE duplex negative for DVT, acute superficial thrombus in BUE Other problems: Complexity. Obesity Body mass index is 36 kg/m . - Follow with PCP for dietary and lifestyle modifications. Disposition: Aroldo Vargas will be discharged to SNF after PEG tube placement. Felix Maharaj APRN-COLLAR SETTER 12/19/2023 9:29 AM VITAL SIGNS Temp: [97.3 F (36.3 C)-98 F (36.7 C)] 98 F (36.7 C) Pulse (Heart Rate): [55-74] 55 Resp Rate: [12-20] 16 BP: (79-144)/(45-69) 126/59 O2 Sat (%): [93 %-99 %] 98 % Oxygen Therapy: Oxygen Therapy O2 Sat (%): 98 % O2 Device: room air Flow (L/min): 1 Intake/Output: Intake/Output Summary (Last 24 hours) at 12/19/2023 0929 Last data filed at 12/19/2023 0510 Gross per 24 hour Intake 1519.86 ml Output 1460 ml Net 59.86 ml LABS/CULTURES Lab Results Component Value Date WBC 11.26 (H) 12/18/2023 HGB 10.7 (L) 12/18/2023 HCT 34.3 (L) 12/18/2023 PLATELET 320 12/19/2023 MCV 96.3 12/18/2023 Lab Results Component Value Date SODIUM 137 12/18/2023 POTASSIUM 4.7 12/18/2023 CHLORIDE 102 12/18/2023 CO2 27 12/18/2023 BUN 23 12/18/2023 CREATSERUM 0.48 (L) 12/18/2023 GLUCOSE 123 (H) 12/18/2023 Lab Results Component Value Date CHOLESTEROL 186 11/30/2023 TRIG 86 11/30/2023 HDL 39 (L) 11/30/2023 LDLCALC 130 (H) 11/30/2023 Lab Results Component Value Date HGBA1C 5.3 11/30/2023 Lab Results Component Value Date ALBUMIN 3.4 (L) 11/30/2023 , Lab Results Component Value Date CPK 82 11/29/2023 IMAGING/DIAGNOSTIC STUDIES VASC DUPLEX CAROTID BILATERAL Final Result CT ABDOMEN/PELVIS WITH CONTRAST Final Result IMPRESSION: 1. Few dilated loops of transverse colon between portions of the stomach and the abdominal wall. 2. No acute findings in the abdomen and pelvis. ABDOMEN 1 VIEW PORTABLE Final Result IMPRESSION: Feeding tube with tip in the expected location of the pyloric region. If postpyloric position is desired further advancement is recommended. DUPLEX VENOUS EXTREMITY UPPER BILATERAL Final Result XR ABDOMEN 1 VIEW Final Result IMPRESSION: Interval retraction of the Dobbhoff tube with the tip in the distal stomach pointed superiorly into the left. If postpyloric positioning is needed, repositioning prior to advancement is recommended. ABDOMEN 1 VIEW PORTABLE Final Result IMPRESSION: Dobbhoff tube remains coiled in the stomach with the tip in proximal stomach body. Discussed with Joycelyn Lala RN at 2:48am on Dec 06, 2023. I personally viewed and interpreted these images and I have reviewed and approved this report. ABDOMEN 1 VIEW Final Result IMPRESSION: Dobbhoff tube is looped in the distal stomach with tip in the proximal stomach. Repositioning/advancement recommended. ABDOMEN 1 VIEW Final Result IMPRESSION: Dobbhoff tube tip in the distal stomach. CHEST 1 VIEW PORTABLE Final Result IMPRESSION: No radiographic evidence of acute cardiopulmonary abnormality. ANGIO BRAIN/NECK Final Result IMPRESSION: 1. 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 2. Interval occlusion at the M1-M2 junction beginning at the origin of the dominant inferior branch of the right middle cerebral artery which is associated with poor distal collateralization. HEAD WITHOUT CONTRAST Final Result IMPRESSION: Evolving infarcts in the right RUBY and MCA distribution with hemorrhagic transformation in the right basal ganglia with unchanged focal hematoma. Mildly mass effect with leftward shift of 4 mm. CHEST 1 VIEW PORTABLE Final Result IMPRESSION: New bibasilar atelectasis status post placement of partially visualized feeding tube. HEAD WITHOUT CONTRAST Final Result IMPRESSION: Evolving infarcts in the right RUBY and MCA distribution with petechial hemorrhagic transformation in the right basal ganglia with unchanged focal hematoma. Mildly progressed mass effect with leftward shift of 4 mm. ABDOMEN 1 VIEW Final Result IMPRESSION: Dobbhoff tube with tip projecting over the pyloroduodenal region. Consider advancement to confirm postpyloric position. BRAIN WITHOUT CONTRAST Final Result IMPRESSION: Acute infarcts in the right RUBY and MCA territories with hemorrhagic transformation in the right basal ganglia and small volume intraventricular hemorrhage. Mass effect with mild leftward shift of 2 mm. HEAD WITHOUT CONTRAST Final Result IMPRESSION: No interval change in acute infarcts in the right RUBY and MCA distribution with a 1.4 cm hematoma in the right basal ganglia as confirmed on dual-energy CT. Similar mass effect and leftward shift of 3 mm. HEAD WITHOUT CONTRAST Final Result IMPRESSION: Evolving infarct involving a large portion of the right MCA vascular territory as described above, increased in extent in comparison to prior head CT. Hyperdensities involving the right basal ganglia likely represent a combination of hemorrhage and contrast staining. A more focal and hyperdense component involving the right globus pallidus is favored to represent hematoma. Further characterization and distinction of hemorrhage/contrast could be obtained with a dual energy CT if clinically indicated. The suspected hemorrhagic component is new in comparison to previous head CT from November 29, 2023. There is associated mass effect with effacement of the right lateral ventricle but minimal leftward midline shift at this point in time. Findings communicated to Dr. Powers on 11/30/2023 at 10:55 AM. 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 There is distal reconstitution of several right middle cerebral artery branches, likely related to collateral flow. Occlusion of the right M1 segment with distal reconstitution, as above. Short segment of occlusion of the proximal right A1 segment. Remainder of the anterior cerebral arteries are patent, without significant stenosis. CARDIOGRAM Final Result XR ABDOMEN 1 VIEW PORTABLE Final Result FINDINGS/IMPRESSION: Tubes: Feeding tube tip is just entering the duodenum. The lower pelvis was excluded. Normal bowel gas pattern. No definite pneumoperitoneum. ABDOMEN 1 VIEW PORTABLE Final Result IMPRESSION: Feeding tube with tip in the proximal stomach. If postpyloric position is desired further advancement is recommended. SPINE CERVICAL WITHOUT CONTRAST Final Result IMPRESSION: 1. No acute fracture or traumatic malalignment. 2. Degenerative changes as above. I personally viewed and interpreted these images and I have reviewed and approved this report. CEREBRAL PERFUSION ANALYSIS Final Result IMPRESSION: Large perfusion defect involving the right MCA and reticular striate territories. Completed infarct core in the basal ganglia with large volume of ischemic penumbra. STROKE HEAD-STROKE ALERT ONLY Final Result IMPRESSION: Acute nonhemorrhagic infarct in the right basal ganglia lenticulostriate distribution. No significant intracranial mass effect. Findings were discussed with Ryley Licea at 3:06 PM on November 29, 2023. I personally viewed and interpreted these images and I have reviewed and approved this report. RO IMAGING FOR NEURO ENDOVASCULAR (Results Pending) MEDICATIONS aspirin 81 mg PEG Tube Daily Atorvastatin 40 mg PEG Tube QHS carveDILOL 12.5 mg PEG Tube Q12HNS [START ON 12/20/2023] enoxaparin 40 mg Subcutaneous Daily lidocaine 2 patch Transdermal Q24H Lisinopril 40 mg PEG Tube Daily Associated attestation - Charli Kang MD - 12/19/2023 5:29 PM EST Attending Physician Note (GC) I interviewed and examined this patient with the DOOR LINER HELPER. I reviewed the history and exam detailed in the note. I agree with the medical decision making with the following comment(s): Prolonged hospitalization for right ICA syndrome (no severe residual stenosis) s/pt MT with persistent severe symptoms. PEG placed yesterday and starting feeds today. On appropriate secondary prevention and work-up complete. Awaiting SNF discharge. Bariatric SURGERY POST-OPERATIVE CHECK Subjective: Aroldo Vargas is a 78 y.o. female who is now status post EGD with PEG. The patient was evaluated after transport to the hospital floor. Patient reports that pain is well controlled. Denies fevers, chills, chest pain, SOB, N/V. Objective: Vitals: BP 144/69 (BP Location: Right arm, BP Position: Lying) Pulse 74 Temp 97.8 F (36.6 C) (Oral) Resp 12 Ht 1.575 m (5' 2") Wt 89.3 kg (196 lb 12.8 oz) SpO2 99% BMI 36.00 kg/m Smoking Status Never Exam: GEN: Laying comfortably in bed, no acute distress. RESP: No increased work of breathing on 1 liters/min via nasal prongs CARD: Extremities warm and well perfused. ABD: Soft, appropriately tender to palpation, non-distended. PEG tube 6 cm at skin, secured by tape and abdominal binder. EXT: No cyanosis. 2+ radial/DP/PT pulses bilaterally. Assessment and Plan: Aroldo Vargas is a 78 y.o. female who is now s/p EGD with PEG. The patient is recovering well post-operatively. - Okay for meds through G-tube; will trial tube feeds tomorrow. - pain: tylenol, dilaudid, oxycodone - nausea: PRN zofran, compazine - diet: DIET NPO with meds - fluids: [Held by provider] Jevity 1.5 Benny/Fiber Stopped (12/18/23 0004) Sodium chloride 0.9% 75 mL/hr at 12/18/232054 - DVT prophylaxis: Lovenox tomorrow - encourage OOBAT and IS Karol Kirk MD General Surgery PGY-1 Speech Language Pathology Attempt Note 12/18/2023 NETBACKUP ADMINISTRATOR Therapy Completed: Attempted to see for speech/swallow therapy. Attempted Reason: Patient is unavailable due to test/procedure - off unit for PEG placement. AMADO Solis Time In: 1208 Time Out: 1208 Total Visit Time: 0 minutes Total Treatment Time (skilled, billable minutes): 0 minutes Acute Physical Therapy Treatment Prior to Admission [facility] score(s): PRIOR LEVEL AM-PAC Activity Raw Score: 24 Current AM-PAC score(s): CURRENT AM-PAC Mobility Raw Score: 6 Based on the above AM-PAC score(s) and PT clinical judgment, patient is a good candidate for discharge to [facility] Facility Barriers to discharge home: Patient needs assistance with functional mobility Mobility equipment available at home: 2 wheeled walker, none used ADL equipment available at home: Equipment needed for discharge: to be determined Current therapy frequency recommendation in acute: Therapy Frequency: 5 times a week Precautions and Weightbearing Status: Existing Precautions/Restrictions: fall Telemetry, Tube feed Patient Safety Communication Prior to Visit: Nursing Subjective: Pt was agreeable to participate in therapy session Pain: General Pain Documentation (Adult, OB, Peds) Presence of Pain: denies pain/discomfort Presence of Pain Score (Auto-calculated): 0 Objective/Observation: Vitals/Vitals Responses to Treatment: WFL O2 Device: room air Cognition Overall Cognitive Status: Impaired Arousal/Alertness: Inconsistent responses to stimuli Orientation Level: Oriented to person Following Commands: Follows one step commands with increased time, Follows one step commands with repetition (75%) Safety Judgment: Decreased awareness of need for assistance, Decreased awareness of need for safety Extremity Assessments: See PT Evaluation flowsheet for Extremity Measurement updates. Skin and Edema: Balance: Sitting Balance Static Sitting-Level of Assistance: (min to max) Skilled Rationale: Positioning, Sequencing, Hand placement, Verbal cues Sitting Balance Skilled Intervention/Details: Pt completed EOB sitting with varying assist from min to max assist. Pt able to maintain static sitting with min assist with right UE placed on bed to promote midline posture and decreased left and retro leaning. Pt completed EOB sitting x 15-16 minutes. Pt with good attempts at corrective reactions during LOB but unable to return to midline without assist Mobility Assessment/Intervention: Supine to Sit Mobility [place] Level: Supine->Sit: dependent (less than 25% patient effort) Physical Assist: Supine->Sit: 2 person assist Bed Features/Set-up: Supine->Sit: Head of bed elevated Skilled Rationale: Positioning, Verbal cues, Sequencing, Hand placement Skilled Intervention/Details: Supine->Sit: Pt with no initiation despite attempt to increase patient participation Sit to Supine Mobility [place] Level: Sit->Supine: dependent (less than 25% patient effort) Physical Assist: Sit->Supine: 2 person assist Bed Features/Set-up: Sit->Supine: Flat Skilled Rationale: Positioning, Sequencing, Hand placement, Verbal cues Transfer Assessment/Intervention: Gait/Functional Mobility Assessment/Intervention: Stairs Assessment/Intervention: Outcome Score(s): CURRENT AM-[facility] Basic Mobility Inpatient Short Form Turning over in bed: 1 - Total Assistance Sitting/standing from chair: 1 - Total Assistance Moving from lying on back to sittin - Total Assistance Moving to and from bed to chair: 1 - Total Assistance Walk in hospital room: 1 - Total Assistance Climbing 3-5 steps with a railin - Total Assistance CURRENT [facility] Mobility Raw Score: 6 CURRENT [facility] Mobility Functional Limitation/Modifier: 100.00% Currently Impaired in Basic Mobility Currently Impaired in Basic Mobility - CN Interventions: Assessment & Plan: Pt making good progress toward therapy goals, improved EOB sitting tolerance and balance Patient Instruction/Education this session: role of PT and PT plan of care Plan for next session: Continue to progress sitting balance, attempt standing as able Acute PT Goals Plan of Care by Estefani Duarte PT at 12/18/2023 11:28 AM Version 1 of 1 Problem: PT - General Goals Goal: Supine <-> Sit Transfers - Patient will perform supine to/from sit transfers with minimal assistance and of 2 people and with use of hospital bed features in order to improve functional mobility and safety. Outcome: Progressing Toward Goal Goal: Sitting Endurance/Balance - Patient will perform seated balance tasks for 10 minutes with minimal assistance and bilateral UE support Outcome: Progressing Toward Goal Goal: Sit <-> Stand Transfers - Patient will perform sit to/from stand transfers with moderate assistance and of 2 people and least restrictive device in order to improve functional mobility and safety. Outcome: Progressing Toward Goal Goal: Strength - Patient will demonstrate understanding of exercise program. Outcome: Progressing Toward Goal PT treatment consisted of the following to progress towards the above goal(s): PT Evaluation and Treatment Time Neuromuscular Re-Education Time Entry: 25 Treating Therapist: Estefani Duarte PT Additional Details: PT Co-Eval/Treatment Information Co-evaluation/co-treatment performed?: Yes, simultaneous billable skilled care was necessary due to medical complexity and functional deficits Other discipline: OT Rationale for need to co-eval/treat: cognitive issues, coordination issues, postural control Co-treatment goal focus: balance, mobility PPE used during patient interaction: facemask, gloves Patient location at end of session: bed with head of bed elevated Alarms on at end of session: bed alarm, wrist restraints Needs in reach. Time In: 906 Time Out: 931 Total Visit Time: 25 minutes Total Treatment Time (skilled, billable minutes): 25 minutes Upon discontinuation of Acute Care Physical Therapy Services or patient discharge from the hospital this note represents the current Physical Therapy Discharge Summary. [facility] Progress Note Subjective: Reports no problems overnight. Pt able to converse with clinician. Pain is under control. Nausea is under control. Reports voiding without difficulty. Spoke with RENYOA Jaylen Vargas (son) this AM. Plan for PEG tube today. Consent uploaded to [employer]. PMHx: Class III Severe Obesity, Body mass index is 36 kg/m ., Stroke, ischemic, part of presentation of ED for current hospital Chronic anemia of unknown source, unknown if c/b iron deficiency Dysphagia POA secondary to stroke Hyperlipidemia, no medical management note, POA HTN, primary on medical management, POA Dementia, chronic, POA CAD, degree of stenosis is unknown, surgical intervention unknown, on metoprolol 200 mg daily POA Objective: BP 127/62 (BP Location: Right arm, BP Position: Lying) Pulse 68 Temp 98.2 F (36.8 C) (Oral) Resp 20 Ht 1.575 m (5' 2") Wt 89.3 kg (196 lb 12.8 oz) SpO2 97% BMI 36.00 kg/m Smoking Status Never I/O last 3 completed shifts: In: 1232.8 [NG/GT:1232.8] Out: 1225 [Urine:1225] Physical Exam: Gen: sitting up in bed, alert and oriented, in no acute distress Lungs: unlabored breathing on room air Cardiac: regular rate and rhythm on lunchroom monitor Abdomen: soft, appropriately-tender, non-distended Labs: WBC/Hgb/Hct/Plts: 11.26/10.7/34.3/352 (12/18 28) Na/K+/Phos/Mg/Ca: 137/4.7/--/2.1/-- (12/18 28) Bun/Creat/Cl/CO2/Glucose: 23/0.48/102/27/123 (12/18 28) Assessment/Plan: Aroldo Vargas is a 78 y.o. female who is 19 Days Post-Op following Procedure(s) (LRB): THROMBECTOMY NONCORONARY ARTERY MECHANICAL PERCUTANEOUS 1ST VESSEL (N/A) PLACEMENT CATH SELECTIVE INTERNAL CAROTID ARTERY W/ ANGIO IPSILAT INTRACRANIAL CAROTID W/ RAD S&I (N/A). All medical management is per primary team. Please refer to primary team for addition management following immediate post operative period. For billing purposes: Complexity. Hypocalcemia - Continue to monitor and replete. Obesity Body mass index is 36 kg/m . - Follow with PCP for dietary and lifestyle modifications. Any conditions listed below are present on admission unless otherwise specified. .Please refer to PMHx above Nori Gabriel MD, 12/18/2023 11:04 AM Acute Occupational Therapy Treatment Prior to Admission AM-PAC Score: PRIOR LEVEL AM-PAC Activity Raw Score: 24 Current AM-PAC score(s): CURRENT AM-PAC Mobility Raw Score: 6 CURRENT AM-PAC Activity Raw Score: 6 Based on the above AM-PAC score(s), and OT clinical judgment, discharge destination recommendation is: [facility] Barriers to discharge home: Patient needs assistance with ADLs, Patient needs assistance with IADLs (see note below), Cognitive impairments that impact safety (see note below) Mobility equipment available at home: 2 wheeled walker, none used ADL equipment available at home: Equipment recommendations for discharge: to be determined Current therapy frequency recommendation(s) in acute: 5 times a week Precautions and Weightbearing Status: OT Existing Precautions/Restrictions: fall Telemetry, Tube feed Patient Safety Communication Prior to Visit: Nursing Subjective: Pt with limited verbal communication, agreeable to OT services. Pain: General Pain Documentation (Adult, OB, Peds) Presence of Pain: denies pain/discomfort Presence of Pain Score (Auto-calculated): 0 Objective/Observation: Vitals/Vitals Responses to Treatment: VSS O2 Device: room air Vision Screen Clinical Observations: Able to attend to objects/task on L side with cues. Speech Speech: slurred speech Cognition Overall Cognitive Status: Impaired Arousal/Alertness: Inconsistent responses to stimuli Orientation Level: Oriented to person Following Commands: Follows one step commands with increased time, Follows one step commands with repetition Safety Judgment: Decreased awareness of need for assistance, Decreased awareness of need for safety Awareness of Errors: Assistance required to identify errors made, Assistance required to correct errors made, Decreased awareness of errors Deficits: Not aware of deficits Attention Span: Difficulty attending to directions Memory: Unable to assess Problem Solving: Assistance required to identify errors made, Assistance required to generate solutions Cognition Comments: R side head turn and gaze, with verbal and tactile cues able to track/attend to objects on L side better but still limited ADL Assessment/Intervention: ADLs: Eating Assistance: Grooming Assistance: Maximal Grooming Location: edge of bed Grooming Deficit: Increased time to complete, Activity tolerance, Balance, Manipulation of items, Brushing hair, Initiation Grooming Skilled Rationale (Verbal/Tactile/Visual/Demonstration): Setup, Facilitate positioning, Facilitate postural control, Cues for cognitive deficit Grooming Intervention/Details: Pt completed washing hair and brushing hair EOB with setup and physical assist. Increased attention to L side while brushing hair compared to previous sessions, however, still significantly impaired. Bathing Assistance: UE Dressing Assistance: LE Dressing Assistance: Toilet Assistance: Extremity Assessments: See OT Evaluation flowsheet for Extremity Measurement updates. Balance: Sitting Balance Static Sitting-Level of Assistance: Maximum assistance Skilled Rationale: Positioning, Sequencing, Verbal cues, Tactile cues, Finding/maintaining midline positioning, Full extension to upright positioning/posture Sitting Balance Skilled Intervention/Details: Pt sitting EOB for approx 15-17 minutes with Max A noting increased effort to correct L side lean compared to previous sessions. Skin and Edema: Mobility Assessment/Intervention: Rolling/Turning Mobility [place] Level: Rolling/Turning: dependent (less than 25% patient effort) Physical Assist: Rolling/Turnin person assist Bed Features/Set-up: Rolling/Turning: Head of bed elevated Skilled Rationale: Positioning, Sequencing, Hand placement, Verbal cues, Tactile cues, Technique of activity Skilled Intervention/Details: Rolling/Turning: Cues required for task initiation and hand placement. Supine to Sit Mobility [place] Level: Supine->Sit: dependent (less than 25% patient effort) Physical Assist: Supine->Sit: 2 person assist Bed Features/Set-up: Supine->Sit: Head of bed elevated Skilled Rationale: Verbal cues, Positioning, Tactile cues, Technique of activity Skilled Intervention/Details: Supine->Sit: Pt requires dep A to complete task x2 person assist for bilat LE and trunk management. Sit to Supine Mobility [place] Level: Sit->Supine: dependent (less than 25% patient effort) Physical Assist: Sit->Supine: 2 person assist Bed Features/Set-up: Sit->Supine: Flat Skilled Rationale: Verbal cues, Tactile cues Skilled Intervention/Details: Sit->Supine: Pt unable to complete task stating "don't drop me" Transfer Assessment/Intervention: Functional Mobility: CURRENT [facility] Daily Activity Inpatient Short Form Putting on/Taking Off Lower Body Clothin - Total Assistance Bathin - Total Assistance Toiletin - Total Assistance Putting on/Taking Off Upper Body Clothin - Total Assistance Groomin - Total Assistance Eatin - Total Assistance CURRENT [facility] Activity Raw Score: 6 CURRENT [facility] Activity Functional Limitation/Modifier: 100.00% Currently Impaired in Daily Activity Currently Impaired in Daily Activity - CN Interventions: Assessment & Plan: Pt demonstrated increased ability to attend to cues and task related objects on the L side of her body, however, still significantly impaired. Pt completed EOB sitting and was challenged throughout session to correct L side lean. Pt completed grooming EOB by washing and brushing hair requiring max verbal and tactile cues and physical assist to complete. Pt should continue to receive skilled OT services to maximize functional outcomes. Patient Instruction/Education this session: Role of OT. Plan for next session: Continue to increase EOB sitting tolerance, focus on correcting L side lean. Continue to challenge attending to L side of body. Acute OT Goals Plan of Care by Desirae Quintero OT at 12/18/2023 9:30 AM Version 1 of 1 Problem: OT - ADLs Goal: Grooming - Patient will complete grooming edge of bed with minimal assistance for improved ability to safely complete ADLs. Outcome: Progressing Toward Goal Problem: OT - Transfers Goal: Transfers Supine -> Sit - Patient will perform supine to/from sit with flat bed & no rail and maximal assistance to improve participation in ADLs. Outcome: Progressing Toward Goal Problem: OT - Balance Goal: Balance - Seated - Patient will perform 15 minutes of functional task in sitting with moderate assistance and fair balance to promote safety during self-care activities. Outcome: Progressing Toward Goal Problem: OT - Cognition Goal: Cognition Simple ADL - Patient will demonstrate improved cognition, completing simple ADL task for 10 minutes with no greater than min cues required to maintain attention. Outcome: Progressing Toward Goal Problem: OT - Vision Goal: Visual Tracking - Patient will track past midline to left during session with no greater than mod cues to attend to familiar object/person for ADL participation in 5/5 trials. Outcome: Progressing Toward Goal OT treatment consisted of the following to work and progress towards the above goal(s): OT Evaluation and Treatment Time Self Care/Home Management (ADLs) Time Entry: 12 Neuromuscular Re-Education Time Entry: 13 Treating Therapist: Yahir Corley Additional Details: OT Co-Eval/Treatment Information Co-evaluation/co-treatment performed?: Yes, simultaneous billable skilled care was necessary due to medical complexity and functional deficits Other discipline: PT Rationale for need to co-eval/treat: cognitive issues, postural control, alertness/arousal Co-treatment goal focus: balance, self-care PPE used during patient interaction: facemask, gloves Patient location at end of session: bed with head of bed elevated Alarms on at end of session: bed alarm Needs in reach. Time In: 906 Time Out: 931 Total Visit Time: 25 minutes Total Treatment Time (skilled, billable minutes): 25 minutes Upon discontinuation of Acute Care Occupational Therapy Services or patient discharge from the hospital this note represents the current Occupational Therapy Discharge Summary. Associated attestation - Desirae Quintero OT - 12/18/2023 10:07 AM EST I, Desirae Quintero OT, provided direct guidance in the room during this patient care session. I attest that all documentation reflects accurate skilled clinical decisions and judgements. NEUROVASCULAR STROKE SERVICE Daily Progress Note IDENTIFYING INFORMATION Aroldo Vargas MR# [id number] 12/18/2023 HISTORY OF PRESENT ILLNESS Aroldo Vargas is a 78 y.o. female with PMH significant for HTN, HLD, CAD, dementia, TIA who presented to an [facility] after family found her with L hemiplegia, L facial droop and slurred speech. Seen on tele, NIHSS 8. CTA showed R ICA occlusion. She was out of the window for IV thrombolytics. Transferred to [facility] for further management. LKW 2145 on 11/28. On arrival to [facility], NIHSS 16. CTH with evolving R MCA territory stroke. CTP with R MCA mismatch. mRS 2 at baseline. 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 INTERVAL HISTORY 11/30: Brain MRI pending. 12/05: Transfer out of [facility]. 12/06: Dobbhoff dislodged overnight, replaced, restrained. Consult ID for positive blood cultures, repeat cultures. Daughter updated at bedside. UE venous duplex. 12/07: atbx complete, NETBACKUP ADMINISTRATOR to re-eval, GI consulted for PEG planning 12/08: No overnight events. PEG likely early next week. 12/09: NAEON. 12/10: exam stable, discussed with GI, PEG tentative for tomorrow 12/11: PEG planned today. 12/12: PEG planned for today, vital signs stable. 12/13: GI unable to place PEG, consult gen surg. CT A/P pending. Exam and vitals stable. 12/14: CT A/P completed. Dysphagia improving, FEES Friday 12/15: No overnight events. Planning for FEES Saturday 12/16: Increase in NIH overnight, back to baseline. NIHSS q12, de-escalate labs. Bowel regimen PRN. 12/17: FEES complete, NPO recommended, follow up with surgery about PEG timing, carotid duplex to eval carotid stenosis 12/18: PEG today as add-on. MARINO carotid dopplers without significant ICA stenosis. PHYSICAL EXAM Gen: NAD HEENT: normocephalic, no scalp lesions or tenderness Neck: trachea midline CV: +S1S2, RRR, no m/r/g Lungs: Respirations unlabored with equal chest rise Abd: soft, nontender, nondistended Extrem: Warm and well perfused Neuro: Opens eyes to speech, follows simple commands, states full name, disoriented to month and age. CN II - Does not blink to threat on left CN II/III - PERRLA CN III/IV/ - Right gaze deviation CN V - CN VII - Left facial droop CN VIII - Hearing intact CN X - Cough present CN XI - Left shoulder weakness CN XII - MOTOR EXAMINATION: Left hemiplegia NIHSS 12/18/2023 Provider NIH Stroke Scale NIH Interval (Provider): daily NIH Level of Conciousness (Provider): 0 NIH LOC Questions (Provider): 1 NIH LOC Commands (Provider): 0 NIH Best Gaze (Provider): 1 NIH Visual (Provider): 2 NIH Facial Palsy (Provider): 2 NIH Left Arm Motor (Provider): 4 NIH Right Arm Motor (Provider): 0 NIH Left Leg Motor (Provider): 4 NIH Right Leg Motor (Provider): 1 NIH Limb Ataxia (Provider): 0 NIH Sensory (Provider): 1 NIH Best Language (Provider): 1 NIH Dysarthria (Provider): 1 NIH Extinction and Inattention (Provider): 1 NIH Total Score (Provider): 19 ASSESSMENT AND PLAN Neuro: Acute right hemispheric strokes, Right ICA/MCA occlusion s/p TICI 2b revascularization: CTH: Evolving R MCA territory stroke, no hemorrhage OSH CTA brain/neck: R ICA/M1 occlusion CTP: Large R MCA mismatch with small right basal ganglia stroke MRI brain: Acute infarcts in the right RUBY and MCA territories with hemorrhagic transformation in the right basal ganglia and small IVH. TTE: EF >70% EKG on admission: NSR, QTc 429 LDL 130 HgbA1c 5.3 Repeat CTA brain/neck: ICA now open but there is occlusion of right M1-M2 junction. MARINO Carotid Doppler: No significant (<50% 2/2 calcified plaques) ICA stenosis MARINO -Stroke Etiology (TOAST Criteria): Cryptogenic -Antiplatelet plan: Aspirin 81 mg daily -Statin therapy: Lipitor 40 mg daily -Blood Pressure goal: SBP <220 -Mobile cardiac telemetry for 30 days at discharge Ischemic Stroke Core Measures -NIHSS on admission 16 -Patient has been started on Mechanical (SCD's) and Pharmacological (SQ heparin/Lovenox) DVT prophylaxis. -Antiplatelet therapy has been initiated, Aspirin 81mg daily. -Anticoagulation therapy was not indicated for this patient -Patients LDL 130 and HgbA1c 5.3 were checked and the patient will be discharged on Atorvastatin daily. -Dysphagia screening ordered, and will be completed prior to patient receiving oral intake. -Stroke education booklet has been ordered and will be provided by the RN that includes both written and verbal education to the patient and family regarding ischemic strokes. We have reviewed the patient's personal modifiable risk factors including: HTN, HLD as well as education on reducing these risk factors -Patient is being assessed for Rehab by PT/OT/Speech and PM&R if indicated. HTN, POA: Nicardipine stopped 12/04 -Continue lisinopril 40 mg daily -Carvedilol 12.5 mg every 12 hours Dysphagia: Seen by speech, last 12/05, recommend NPO -Tube feeds via Dobbhoff -Discussed PEG tube with daughter on 12/06 -GI consulted 12/07, PEG unsuccessful 12/12 -General surgery consulted, CT A/P completed. -12/17 FEES done, NPO recommend, surgery paged for PEG timing -Plan for PEG today 12/18 as add-on Likely Aspiration pneumonia: -completed 5 days ceftriaxone 2 gm daily on 12/07 Bacteremia: likely contaminant -Blood cultures from 12/02 and 12/04 show staphylococcus hominis in 1/2 sets -Consult ID: blood cultures likely contaminated, repeat blood cultures with no growth, signed off -Completed ceftriaxone 5 days as above Bilateral UE swelling: -BUE duplex negative for DVT, acute superficial thrombus in BUE Other problems: Complexity. Obesity Body mass index is 36 kg/m . - Follow with PCP for dietary and lifestyle modifications. Disposition: Aroldo Vargas will be discharged to SNF after PEG tube placement. Tom Bryan, ELECTRICAL CONTINUITY TESTER-COLLAR SETTER 12/18/2023 10:07 AM VITAL SIGNS Temp: [97.6 F (36.4 C)-98.3 F (36.8 C)] 98.2 F (36.8 C) Pulse (Heart Rate): [68-79] 68 Resp Rate: [16-20] 20 BP: (100-127)/(56-62) 127/62 O2 Sat (%): [95 %-98 %] 97 % Weight: [89.3 kg (196 lb 12.8 oz)] 89.3 kg (196 lb 12.8 oz) Oxygen Therapy: Oxygen Therapy O2 Sat (%): 97 % O2 Device: room air Intake/Output: Intake/Output Summary (Last 24 hours) at 12/18/2023 1007 Last data filed at 12/18/2023 0807 Gross per 24 hour Intake 1764.38 ml Output 1225 ml Net 539.38 ml LABS/CULTURES Lab Results Component Value Date WBC 11.26 (H) 12/18/2023 HGB 10.7 (L) 12/18/2023 HCT 34.3 (L) 12/18/2023 PLATELET 352 12/18/2023 MCV 96.3 12/18/2023 Lab Results Component Value Date SODIUM 137 12/18/2023 POTASSIUM 4.7 12/18/2023 CHLORIDE 102 12/18/2023 CO2 27 12/18/2023 BUN 23 12/18/2023 CREATSERUM 0.48 (L) 12/18/2023 GLUCOSE 123 (H) 12/18/2023 Lab Results Component Value Date CHOLESTEROL 186 11/30/2023 TRIG 86 11/30/2023 HDL 39 (L) 11/30/2023 LDLCALC 130 (H) 11/30/2023 Lab Results Component Value Date HGBA1C 5.3 11/30/2023 Lab Results Component Value Date ALBUMIN 3.4 (L) 11/30/2023 , Lab Results Component Value Date CPK 82 11/29/2023 IMAGING/DIAGNOSTIC STUDIES VASC DUPLEX CAROTID BILATERAL Final Result CT ABDOMEN/PELVIS WITH CONTRAST Final Result IMPRESSION: 1. Few dilated loops of transverse colon between portions of the stomach and the abdominal wall. 2. No acute findings in the abdomen and pelvis. ABDOMEN 1 VIEW PORTABLE Final Result IMPRESSION: Feeding tube with tip in the expected location of the pyloric region. If postpyloric position is desired further advancement is recommended. DUPLEX VENOUS EXTREMITY UPPER BILATERAL Final Result XR ABDOMEN 1 VIEW Final Result IMPRESSION: Interval retraction of the Dobbhoff tube with the tip in the distal stomach pointed superiorly into the left. If postpyloric positioning is needed, repositioning prior to advancement is recommended. ABDOMEN 1 VIEW PORTABLE Final Result IMPRESSION: Dobbhoff tube remains coiled in the stomach with the tip in proximal stomach body. Discussed with Joycelyn Lala RN at 2:48am on Dec 06, 2023. I personally viewed and interpreted these images and I have reviewed and approved this report. ABDOMEN 1 VIEW Final Result IMPRESSION: Dobbhoff tube is looped in the distal stomach with tip in the proximal stomach. Repositioning/advancement recommended. ABDOMEN 1 VIEW Final Result IMPRESSION: Dobbhoff tube tip in the distal stomach. CHEST 1 VIEW PORTABLE Final Result IMPRESSION: No radiographic evidence of acute cardiopulmonary abnormality. ANGIO BRAIN/NECK Final Result IMPRESSION: 1. 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 2. Interval occlusion at the M1-M2 junction beginning at the origin of the dominant inferior branch of the right middle cerebral artery which is associated with poor distal collateralization. HEAD WITHOUT CONTRAST Final Result IMPRESSION: Evolving infarcts in the right RUBY and MCA distribution with hemorrhagic transformation in the right basal ganglia with unchanged focal hematoma. Mildly mass effect with leftward shift of 4 mm. CHEST 1 VIEW PORTABLE Final Result IMPRESSION: New bibasilar atelectasis status post placement of partially visualized feeding tube. HEAD WITHOUT CONTRAST Final Result IMPRESSION: Evolving infarcts in the right RUBY and MCA distribution with petechial hemorrhagic transformation in the right basal ganglia with unchanged focal hematoma. Mildly progressed mass effect with leftward shift of 4 mm. ABDOMEN 1 VIEW Final Result IMPRESSION: Dobbhoff tube with tip projecting over the pyloroduodenal region. Consider advancement to confirm postpyloric position. BRAIN WITHOUT CONTRAST Final Result IMPRESSION: Acute infarcts in the right RUBY and MCA territories with hemorrhagic transformation in the right basal ganglia and small volume intraventricular hemorrhage. Mass effect with mild leftward shift of 2 mm. HEAD WITHOUT CONTRAST Final Result IMPRESSION: No interval change in acute infarcts in the right RUBY and MCA distribution with a 1.4 cm hematoma in the right basal ganglia as confirmed on dual-energy CT. Similar mass effect and leftward shift of 3 mm. HEAD WITHOUT CONTRAST Final Result IMPRESSION: Evolving infarct involving a large portion of the right MCA vascular territory as described above, increased in extent in comparison to prior head CT. Hyperdensities involving the right basal ganglia likely represent a combination of hemorrhage and contrast staining. A more focal and hyperdense component involving the right globus pallidus is favored to represent hematoma. Further characterization and distinction of hemorrhage/contrast could be obtained with a dual energy CT if clinically indicated. The suspected hemorrhagic component is new in comparison to previous head CT from November 29, 2023. There is associated mass effect with effacement of the right lateral ventricle but minimal leftward midline shift at this point in time. Findings communicated to Dr. Powers on 11/30/2023 at 10:55 AM. 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 There is distal reconstitution of several right middle cerebral artery branches, likely related to collateral flow. Occlusion of the right M1 segment with distal reconstitution, as above. Short segment of occlusion of the proximal right A1 segment. Remainder of the anterior cerebral arteries are patent, without significant stenosis. CARDIOGRAM Final Result XR ABDOMEN 1 VIEW PORTABLE Final Result FINDINGS/IMPRESSION: Tubes: Feeding tube tip is just entering the duodenum. The lower pelvis was excluded. Normal bowel gas pattern. No definite pneumoperitoneum. ABDOMEN 1 VIEW PORTABLE Final Result IMPRESSION: Feeding tube with tip in the proximal stomach. If postpyloric position is desired further advancement is recommended. SPINE CERVICAL WITHOUT CONTRAST Final Result IMPRESSION: 1. No acute fracture or traumatic malalignment. 2. Degenerative changes as above. I personally viewed and interpreted these images and I have reviewed and approved this report. CEREBRAL PERFUSION ANALYSIS Final Result IMPRESSION: Large perfusion defect involving the right MCA and reticular striate territories. Completed infarct core in the basal ganglia with large volume of ischemic penumbra. STROKE HEAD-STROKE ALERT ONLY Final Result IMPRESSION: Acute nonhemorrhagic infarct in the right basal ganglia lenticulostriate distribution. No significant intracranial mass effect. Findings were discussed with Ryley Licea at 3:06 PM on November 29, 2023. I personally viewed and interpreted these images and I have reviewed and approved this report. RO IMAGING FOR NEURO ENDOVASCULAR (Results Pending) MEDICATIONS aspirin 81 mg Per NG tube Daily Atorvastatin 40 mg Per NG tube QHS carveDILOL 12.5 mg Per NG tube Q12HNS [Held by provider] enoxaparin 40 mg Subcutaneous Daily lidocaine 2 patch Transdermal Q24H Lisinopril 40 mg Per NG tube Daily Associated attestation - Charli Kang MD - 12/18/2023 6:03 PM EST Attending Physician Note (GC) I interviewed and examined this patient with the DOOR LINER HELPER. I reviewed the history and exam detailed in the note. 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 Work-up complete, on appropriate secondray prevention. No known active complications. Awaiting PEG, likely today. Placement Plan Expected Discharge Date: 12/19/2023 Referred Level of Care: SNF Barriers: Pre-cert, medical readiness, transportation. Current Referrals and Status: [facility] - Available SONNY spoke with Ailyn in admissions at [facility] who told SONNY they do have beds available and can accept patient pending a PEG placement and pre-cert approval. SONNY updated pt's son/SANDRA York by phone. Clinicals uploaded to facility in [facility]. ANTONIO Valero, SANDRITA Transportation Engineering Technician Available by Secure Chat NEUROVASCULAR STROKE SERVICE Daily Progress Note IDENTIFYING INFORMATION Aroldo Vargas MR# [id number] 12/17/2023 HISTORY OF PRESENT ILLNESS Aroldo Vargas is a 78 y.o. female with PMH significant for HTN, HLD, CAD, dementia, TIA who presented to an [facility] after family found her with L hemiplegia, L facial droop and slurred speech. Seen on tele, NIHSS 8. CTA showed R ICA occlusion. She was out of the window for IV thrombolytics. Transferred to [facility] for further management. LKW 2145 on 11/28. On arrival to [facility], NIHSS 16. CTH with evolving R MCA territory stroke. CTP with R MCA mismatch. mRS 2 at baseline. 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 INTERVAL HISTORY 11/30: Brain MRI pending. 12/05: Transfer out of [facility]. 12/06: Dobbhoff dislodged overnight, replaced, restrained. Consult ID for positive blood cultures, repeat cultures. Daughter updated at bedside. UE venous duplex. 12/07: atbx complete, NETBACKUP ADMINISTRATOR to re-eval, GI consulted for PEG planning 12/08: No overnight events. PEG likely early next week. 12/09: NAEON. 12/10: exam stable, discussed with GI, PEG tentative for tomorrow 12/11: PEG planned today. 12/12: PEG planned for today, vital signs stable. 12/13: GI unable to place PEG, consult gen surg. CT A/P pending. Exam and vitals stable. 12/14: CT A/P completed. Dysphagia improving, FEES Friday 12/15: No overnight events. Planning for FEES Saturday 12/16: Increase in NIH overnight, back to baseline. NIHSS q12, de-escalate labs. Bowel regimen PRN. 12/17: FEES complete, NPO recommended, follow up with surgery about PEG timing, carotid duplex to eval carotid stenosis PHYSICAL EXAM Gen: NAD HEENT: normocephalic, no scalp lesions or tenderness Neck: trachea midline CV: +S1S2, RRR, no m/r/g Lungs: LCTA bilaterally with equal chest rise Abd: soft, nontender, nondistended, +BS x4 quadrants Extrem: Warm and well perfused Neuro: Opens eyes to speech, follows simple commands, states full name, disoriented to month and age. CN II - Does not blink to threat on left CN II/III - PERRLA CN III/IV/ - Right gaze deviation CN V - CN VII - Left facial droop CN VIII - Hearing intact CN X - Cough present CN XI - Left shoulder weakness CN XII - MOTOR EXAMINATION: Left hemiplegia NIHSS 12/17/2023 Provider NIH Stroke Scale NIH Interval (Provider): daily NIH Level of Conciousness (Provider): 0 NIH LOC Questions (Provider): 1 NIH LOC Commands (Provider): 0 NIH Best Gaze (Provider): 1 NIH Visual (Provider): 2 NIH Facial Palsy (Provider): 2 NIH Left Arm Motor (Provider): 4 NIH Right Arm Motor (Provider): 0 NIH Left Leg Motor (Provider): 4 NIH Right Leg Motor (Provider): 1 NIH Limb Ataxia (Provider): 0 NIH Sensory (Provider): 1 NIH Best Language (Provider): 1 NIH Dysarthria (Provider): 1 NIH Extinction and Inattention (Provider): 1 NIH Total Score (Provider): 19 ASSESSMENT AND PLAN Neuro: Acute right hemispheric strokes, Right ICA/MCA occlusion s/p TICI 2b revascularization: CTH: Evolving R MCA territory stroke, no hemorrhage OSH CTA brain/neck: R ICA/M1 occlusion CTP: Large R MCA mismatch with small right basal ganglia stroke MRI brain Acute infarcts in the right RUBY and MCA territories with hemorrhagic transformation in the right basal ganglia and small IVH TTE: EF >70% EKG on admission: NSR, QTc 429 LDL 130 HgbA1c 5.3 Repeat CTA brain/neck: ICA now open but there is occlusion of right M1-M2 junction. Carotid duplex ordered 12/17 to eval R ICA stenosis given presented with ICA occlusion and now s/p thrombectomy -Stroke Etiology (TOAST Criteria): Cryptogenic -Antiplatelet plan: Aspirin 81 mg daily -Statin therapy: Lipitor 40 mg daily -Blood Pressure goal: SBP <220 -Mobile cardiac telemetry for 30 days at discharge Ischemic Stroke Core Measures -NIHSS on admission 16 -Patient has been started on Mechanical (SCD's) and Pharmacological (SQ heparin/Lovenox) DVT prophylaxis. -Antiplatelet therapy has been initiated, Aspirin 81mg daily. -Anticoagulation therapy was not indicated for this patient -Patients LDL 130 and HgbA1c 5.3 were checked and the patient will be discharged on Atorvastatin daily. -Dysphagia screening ordered, and will be completed prior to patient receiving oral intake. -Stroke education booklet has been ordered and will be provided by the RN that includes both written and verbal education to the patient and family regarding ischemic strokes. We have reviewed the patient's personal modifiable risk factors including: HTN, HLD as well as education on reducing these risk factors -Patient is being assessed for Rehab by PT/OT/Speech and PM&R if indicated. HTN, POA: Nicardipine stopped 12/04 -Continue lisinopril 40 mg daily -Carvedilol 12.5 mg every 12 hours Dysphagia: Seen by speech, last 12/05, recommend NPO -Tube feeds via Dobbhoff -Discussed PEG tube with daughter on 12/06 -GI consulted 12/07, PEG unsuccessful 12/12 -General surgery consulted, CT A/P completed. -12/17 FEES done, NPO recommend, surgery paged for PEG timing Likely Aspiration pneumonia: -completed 5 days ceftriaxone 2 gm daily on 12/07 Bacteremia: likely contaminant -Blood cultures from 12/02 and 12/04 show staphylococcus hominis in 1/2 sets -Consult ID: blood cultures likely contaminated, repeat blood cultures with no growth, signed off -Completed ceftriaxone 5 days as above Bilateral UE swelling: -BUE duplex negative for DVT, acute superficial thrombus in BUE Other problems: Complexity. Obesity Body mass index is 37.02 kg/m . - Follow with PCP for dietary and lifestyle modifications. Disposition: Aroldo Vargas will be discharged after PEG tube placed. Felix Maharaj APRN-COLLAR SETTER 12/17/2023 10:33 AM VITAL SIGNS Temp: [97.4 F (36.3 C)-98.2 F (36.8 C)] 97.7 F (36.5 C) Pulse (Heart Rate): [65-79] 79 Resp Rate: [16-20] 17 BP: (102-116)/(51-57) 116/57 O2 Sat (%): [94 %-97 %] 97 % Oxygen Therapy: Oxygen Therapy O2 Sat (%): 97 % O2 Device: room air Intake/Output: Intake/Output Summary (Last 24 hours) at 12/17/2023 1033 Last data filed at 12/17/2023 0716 Gross per 24 hour Intake 1519.33 ml Output 1200 ml Net 319.33 ml LABS/CULTURES Lab Results Component Value Date WBC 11.65 (H) 12/17/2023 HGB 10.9 (L) 12/17/2023 HCT 34.6 (L) 12/17/2023 PLATELET 372 12/17/2023 MCV 95.6 12/17/2023 Lab Results Component Value Date SODIUM 136 12/17/2023 POTASSIUM 4.6 12/17/2023 CHLORIDE 102 12/17/2023 CO2 27 12/17/2023 BUN 20 12/17/2023 CREATSERUM 0.48 (L) 12/17/2023 GLUCOSE 138 (H) 12/17/2023 Lab Results Component Value Date CHOLESTEROL 186 11/30/2023 TRIG 86 11/30/2023 HDL 39 (L) 11/30/2023 LDLCALC 130 (H) 11/30/2023 Lab Results Component Value Date HGBA1C 5.3 11/30/2023 Lab Results Component Value Date ALBUMIN 3.4 (L) 11/30/2023 , Lab Results Component Value Date CPK 82 11/29/2023 IMAGING/DIAGNOSTIC STUDIES CT ABDOMEN/PELVIS WITH CONTRAST Final Result IMPRESSION: 1. Few dilated loops of transverse colon between portions of the stomach and the abdominal wall. 2. No acute findings in the abdomen and pelvis. ABDOMEN 1 VIEW PORTABLE Final Result IMPRESSION: Feeding tube with tip in the expected location of the pyloric region. If postpyloric position is desired further advancement is recommended. DUPLEX VENOUS EXTREMITY UPPER BILATERAL Final Result XR ABDOMEN 1 VIEW Final Result IMPRESSION: Interval retraction of the Dobbhoff tube with the tip in the distal stomach pointed superiorly into the left. If postpyloric positioning is needed, repositioning prior to advancement is recommended. ABDOMEN 1 VIEW PORTABLE Final Result IMPRESSION: Dobbhoff tube remains coiled in the stomach with the tip in proximal stomach body. Discussed with Joycelyn Lala RN at 2:48am on Dec 06, 2023. I personally viewed and interpreted these images and I have reviewed and approved this report. ABDOMEN 1 VIEW Final Result IMPRESSION: Dobbhoff tube is looped in the distal stomach with tip in the proximal stomach. Repositioning/advancement recommended. ABDOMEN 1 VIEW Final Result IMPRESSION: Dobbhoff tube tip in the distal stomach. CHEST 1 VIEW PORTABLE Final Result IMPRESSION: No radiographic evidence of acute cardiopulmonary abnormality. ANGIO BRAIN/NECK Final Result IMPRESSION: 1. 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 2. Interval occlusion at the M1-M2 junction beginning at the origin of the dominant inferior branch of the right middle cerebral artery which is associated with poor distal collateralization. HEAD WITHOUT CONTRAST Final Result IMPRESSION: Evolving infarcts in the right RUBY and MCA distribution with hemorrhagic transformation in the right basal ganglia with unchanged focal hematoma. Mildly mass effect with leftward shift of 4 mm. CHEST 1 VIEW PORTABLE Final Result IMPRESSION: New bibasilar atelectasis status post placement of partially visualized feeding tube. HEAD WITHOUT CONTRAST Final Result IMPRESSION: Evolving infarcts in the right RUBY and MCA distribution with petechial hemorrhagic transformation in the right basal ganglia with unchanged focal hematoma. Mildly progressed mass effect with leftward shift of 4 mm. ABDOMEN 1 VIEW Final Result IMPRESSION: Dobbhoff tube with tip projecting over the pyloroduodenal region. Consider advancement to confirm postpyloric position. BRAIN WITHOUT CONTRAST Final Result IMPRESSION: Acute infarcts in the right RUBY and MCA territories with hemorrhagic transformation in the right basal ganglia and small volume intraventricular hemorrhage. Mass effect with mild leftward shift of 2 mm. HEAD WITHOUT CONTRAST Final Result IMPRESSION: No interval change in acute infarcts in the right RUBY and MCA distribution with a 1.4 cm hematoma in the right basal ganglia as confirmed on dual-energy CT. Similar mass effect and leftward shift of 3 mm. HEAD WITHOUT CONTRAST Final Result IMPRESSION: Evolving infarct involving a large portion of the right MCA vascular territory as described above, increased in extent in comparison to prior head CT. Hyperdensities involving the right basal ganglia likely represent a combination of hemorrhage and contrast staining. A more focal and hyperdense component involving the right globus pallidus is favored to represent hematoma. Further characterization and distinction of hemorrhage/contrast could be obtained with a dual energy CT if clinically indicated. The suspected hemorrhagic component is new in comparison to previous head CT from November 29, 2023. There is associated mass effect with effacement of the right lateral ventricle but minimal leftward midline shift at this point in time. Findings communicated to Dr. Powers on 11/30/2023 at 10:55 AM. 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 There is distal reconstitution of several right middle cerebral artery branches, likely related to collateral flow. Occlusion of the right M1 segment with distal reconstitution, as above. Short segment of occlusion of the proximal right A1 segment. Remainder of the anterior cerebral arteries are patent, without significant stenosis. CARDIOGRAM Final Result XR ABDOMEN 1 VIEW PORTABLE Final Result FINDINGS/IMPRESSION: Tubes: Feeding tube tip is just entering the duodenum. The lower pelvis was excluded. Normal bowel gas pattern. No definite pneumoperitoneum. ABDOMEN 1 VIEW PORTABLE Final Result IMPRESSION: Feeding tube with tip in the proximal stomach. If postpyloric position is desired further advancement is recommended. SPINE CERVICAL WITHOUT CONTRAST Final Result IMPRESSION: 1. No acute fracture or traumatic malalignment. 2. Degenerative changes as above. I personally viewed and interpreted these images and I have reviewed and approved this report. CEREBRAL PERFUSION ANALYSIS Final Result IMPRESSION: Large perfusion defect involving the right MCA and reticular striate territories. Completed infarct core in the basal ganglia with large volume of ischemic penumbra. STROKE HEAD-STROKE ALERT ONLY Final Result IMPRESSION: Acute nonhemorrhagic infarct in the right basal ganglia lenticulostriate distribution. No significant intracranial mass effect. Findings were discussed with Ryley Licea at 3:06 PM on November 29, 2023. I personally viewed and interpreted these images and I have reviewed and approved this report. RO IMAGING FOR NEURO ENDOVASCULAR (Results Pending) VASC DUPLEX CAROTID BILATERAL (Results Pending) MEDICATIONS aspirin 81 mg Per NG tube Daily Atorvastatin 40 mg Per NG tube QHS carveDILOL 12.5 mg Per NG tube Q12HNS enoxaparin 40 mg Subcutaneous Daily lidocaine 2 patch Transdermal Q24H Lisinopril 40 mg Per NG tube Daily Associated attestation - Charli Kang MD - 12/17/2023 7:07 PM EST Attending Physician Note (GC) I interviewed and examined this patient with the DOOR LINER HELPER. I reviewed the history and exam detailed in the note. I agree with the medical decision making with the following comment(s): 78 y/o female with left hemiplegia due to right m2 occlusion, with moderate/severe right MCA stenosis on follow-up CTA. Getting doppler to clarify magnitdue of stenosis. Still hospitalized, pending PEG. On asa + statin. Likely SNF discharge. Stroke Attending Addendum (Date of service 12/16/23): I have interviewed and examined patient. I have reviewed Natalia Mohamud CNP's note and agree with the following highlights, additions, and addendums: The patient is a 78 y.o. female with a history of hypertension, hyperlipidemia, and prior TIA who on 11/28/232144 was LKN and then developed symptoms of left hemiparesis. Patient was taken to [facility] where Telestroke showed an NIHSS of 8. CT brain was negative for acute changes. OSH CT angiogram head/neck showed right carotidT/[id number]. The patient did not receive IVtPA. Patient transferred to [facility] ER and initial NIHSS on arrival was 16. CT brain showed right MCA infarct. CT perfusion brain shows right MM (25/120mL). Baseline mRS-2. The patient was taken for intra-arterial therapy and had TICI 2b recanalization or right carotid T occlusion. The patient was transferred to [facility]. MRI brain diffusion weighted images shows acute right RUBY/MCA infarcts. LDL 130, HgbA1c 5.3. TTE EF >70%. BCx + Staph hominis 11/20, ID consult felt contaminant, repeat BCx negative. PNA- completed course of CTX. GI attempted PEG 12/12- unsuccessful due to anatomy. CT abd- negative. Interval Overnight History: 133/71. Neurological examination shows left hemiparesis and neglect, NIHSS 17 (?-2, EOMI-2, LF-2, LUE-4, LLE-4, negl-2, dys-1). Assessment/Plan: Acute right MCA ischemic stroke, right carotid T occlusion s/p intra-arterial therapy with TICI 2b recanalization Post-stroke day #17. Stroke work-up completed. Continue daily anti-platelet medication (Asa) and vascular risk factor modification. On lipitor 40. On coreg, lisinopril. DVT prophylaxis with SCDs and lovenox SQ. EM on discharge. NPO- dobhoff for tube feeds. Gen surg consulted, PEG Sun. FEES Sunday. PT/OT consults-SNF after PEG. VS q shift, labs q 3 days. Skip Mcfarland MD Placement Plan Expected Discharge Date: 12/20/2023 Referred Level of Care: SNF Barriers: facility choice/pre-cert/medical readiness/transport Current Referrals and Status: 1.[facility] - unavailable, pt's family requested to re-inquire regarding bed availability 2. [facility] - available SW phoned pt's son/Jaylen FLORES to obtain SNF choice. Pt's son inquired if [facility] (first choice) was able to be contacted to see facility had beds now; SW phoned facility, left contact information requesting call back from admissions & notified electronically; await response. If [facility] remains unable to accept, [facility] is facility of choice. Pre-cert needed. SW will continue to follow. Althea RICARDO Medical Social Work Please note that I am a float SW and may not be covering the same unit each day. Please reach out to the floor/unit SW for additional needs/concerns. NEUROVASCULAR STROKE SERVICE Daily Progress Note IDENTIFYING INFORMATION Aroldo Vargas MR# [id number] 12/16/2023 HISTORY OF PRESENT ILLNESS Aroldo Vargas is a 78 y.o. female with PMH significant for HTN, HLD, CAD, dementia, TIA who presented to an [facility] after family found her with L hemiplegia, L facial droop and slurred speech. Seen on tele, NIHSS 8. CTA showed R ICA occlusion. She was out of the window for IV thrombolytics. Transferred to [facility] for further management. LKW 2145 on 11/28. On arrival to [facility], NIHSS 16. CTH with evolving R MCA territory stroke. CTP with R MCA mismatch. mRS 2 at baseline. 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 INTERVAL HISTORY 11/30: Brain MRI pending. 12/05: Transfer out of [facility]. 12/06: Dobbhoff dislodged overnight, replaced, restrained. Consult ID for positive blood cultures, repeat cultures. Daughter updated at bedside. UE venous duplex. 12/07: atbx complete, NETBACKUP ADMINISTRATOR to re-eval, GI consulted for PEG planning 12/08: No overnight events. PEG likely early next week. 12/09: NAEON. 12/10: exam stable, discussed with GI, PEG tentative for tomorrow 12/11: PEG planned today. 12/12: PEG planned for today, vital signs stable. 12/13: GI unable to place PEG, consult gen surg. CT A/P pending. Exam and vitals stable. 12/14: CT A/P completed. Dysphagia improving, FEES Friday 12/15: No overnight events. Planning for FEES Saturday 12/16: Increase in NIH overnight, back to baseline. NIHSS q12, de-escalate labs. Bowel regimen PRN. PHYSICAL EXAM Gen: NAD HEENT: normocephalic, no scalp lesions or tenderness Neck: trachea midline CV: +S1S2, RRR, no m/r/g Lungs: LCTA bilaterally with equal chest rise Abd: soft, nontender, nondistended, +BS x4 quadrants Extrem: Warm and well perfused Neuro: Opens eyes to speech, follows simple commands, states full name, disoriented to month and age. CN II - Does not blink to threat on left CN II/III - PERRLA CN III/IV/ - Right gaze deviation CN V - CN VII - Left facial droop CN VIII - Hearing intact CN X - Cough present CN XI - Left shoulder weakness CN XII - MOTOR EXAMINATION: Left hemiplegia NIHSS 12/16/2023 Provider NIH Stroke Scale NIH Interval (Provider): daily NIH Level of Conciousness (Provider): 0 NIH LOC Questions (Provider): 1 NIH LOC Commands (Provider): 0 NIH Best Gaze (Provider): 1 NIH Visual (Provider): 2 NIH Facial Palsy (Provider): 2 NIH Left Arm Motor (Provider): 4 NIH Right Arm Motor (Provider): 1 NIH Left Leg Motor (Provider): 4 NIH Right Leg Motor (Provider): 1 NIH Limb Ataxia (Provider): 0 NIH Sensory (Provider): 1 NIH Best Language (Provider): 1 NIH Dysarthria (Provider): 1 NIH Extinction and Inattention (Provider): 0 NIH Total Score (Provider): 19 ASSESSMENT AND PLAN Neuro: Acute right hemispheric strokes, Right ICA/MCA occlusion s/p TICI 2b revascularization: CTH: Evolving R MCA territory stroke, no hemorrhage OSH CTA brain/neck: R ICA/M1 occlusion CTP: Large R MCA mismatch with small right basal ganglia stroke MRI brain Acute infarcts in the right RUBY and MCA territories with hemorrhagic transformation in the right basal ganglia and small IVH TTE: EF >70% EKG on admission: NSR, QTc 429 LDL 130 HgbA1c 5.3 Repeat CTA brain/neck: ICA now open but there is occlusion of right M1-M2 junction. -Stroke Etiology (TOAST Criteria): Cryptogenic -Antiplatelet plan: Aspirin 81 mg daily -Statin therapy: Lipitor 40 mg daily -Blood Pressure goal: SBP <220 -Mobile cardiac telemetry for 30 days at discharge Ischemic Stroke Core Measures -NIHSS on admission 16 -Patient has been started on Mechanical (SCD's) and Pharmacological (SQ heparin/Lovenox) DVT prophylaxis. -Antiplatelet therapy has been initiated, Aspirin 81mg daily. -Anticoagulation therapy was not indicated for this patient -Patients LDL 130 and HgbA1c 5.3 were checked and the patient will be discharged on Atorvastatin daily. -Dysphagia screening ordered, and will be completed prior to patient receiving oral intake. -Stroke education booklet has been ordered and will be provided by the RN that includes both written and verbal education to the patient and family regarding ischemic strokes. We have reviewed the patient's personal modifiable risk factors including: HTN, HLD as well as education on reducing these risk factors -Patient is being assessed for Rehab by PT/OT/Speech and PM&R if indicated. HTN, POA: Nicardipine stopped 12/04 -Continue lisinopril 40 mg daily -Carvedilol 12.5 mg every 12 hours Dysphagia: Seen by speech, last 12/05, recommend NPO -Tube feeds via Dobbhoff -Discussed PEG tube with daughter on 12/06 -GI consulted 12/07, PEG unsuccessful 12/12 -General surgery consulted, CT A/P completed. -12/14 Dysphagia improving, FEES Sunday Likely Aspiration pneumonia: -completed 5 days ceftriaxone 2 gm daily on 12/07 Bacteremia: likely contaminant -Blood cultures from 12/02 and 12/04 show staphylococcus hominis in 1/2 sets -Consult ID: blood cultures likely contaminated, repeat blood cultures with no growth, signed off -Completed ceftriaxone 5 days as above Bilateral UE swelling: -BUE duplex negative for DVT, acute superficial thrombus in BUE Other problems: Complexity. Hyponatremia - Secondary to fluid shifts. Monitor. Obesity Body mass index is 37.02 kg/m . - Follow with PCP for dietary and lifestyle modifications. Disposition: Aroldo Vargas will be discharged after PEG tube placed. Natalia Mohamud, ELECTRICAL CONTINUITY TESTER-COLLAR SETTER 12/16/2023 12:03 PM VITAL SIGNS Temp: [97.5 F (36.4 C)-98.2 F (36.8 C)] 98.1 F (36.7 C) Pulse (Heart Rate): [74-81] 76 Resp Rate: [16-20] 20 BP: (98-143)/(65-71) 129/66 O2 Sat (%): [94 %-100 %] 94 % Oxygen Therapy: Oxygen Therapy O2 Sat (%): 94 % O2 Device: room air Intake/Output: Intake/Output Summary (Last 24 hours) at 12/16/2023 1203 Last data filed at 12/16/2023 0600 Gross per 24 hour Intake 1221 ml Output 400 ml Net 821 ml LABS/CULTURES Lab Results Component Value Date WBC 11.38 (H) 12/16/2023 HGB 10.6 (L) 12/16/2023 HCT 32.8 (L) 12/16/2023 PLATELET 399 (H) 12/16/2023 MCV 93.7 12/16/2023 Lab Results Component Value Date SODIUM 134 (L) 12/16/2023 POTASSIUM 4.6 12/16/2023 CHLORIDE 101 12/16/2023 CO2 26 12/16/2023 BUN 19 12/16/2023 CREATSERUM 0.47 (L) 12/16/2023 GLUCOSE 153 (H) 12/16/2023 Lab Results Component Value Date CHOLESTEROL 186 11/30/2023 TRIG 86 11/30/2023 HDL 39 (L) 11/30/2023 LDLCALC 130 (H) 11/30/2023 Lab Results Component Value Date HGBA1C 5.3 11/30/2023 Lab Results Component Value Date ALBUMIN 3.4 (L) 11/30/2023 , Lab Results Component Value Date CPK 82 11/29/2023 IMAGING/DIAGNOSTIC STUDIES CT ABDOMEN/PELVIS WITH CONTRAST Final Result IMPRESSION: 1. Few dilated loops of transverse colon between portions of the stomach and the abdominal wall. 2. No acute findings in the abdomen and pelvis. ABDOMEN 1 VIEW PORTABLE Final Result IMPRESSION: Feeding tube with tip in the expected location of the pyloric region. If postpyloric position is desired further advancement is recommended. DUPLEX VENOUS EXTREMITY UPPER BILATERAL Final Result XR ABDOMEN 1 VIEW Final Result IMPRESSION: Interval retraction of the Dobbhoff tube with the tip in the distal stomach pointed superiorly into the left. If postpyloric positioning is needed, repositioning prior to advancement is recommended. ABDOMEN 1 VIEW PORTABLE Final Result IMPRESSION: Dobbhoff tube remains coiled in the stomach with the tip in proximal stomach body. Discussed with Joycelyn Lala RN at 2:48am on Dec 06, 2023. I personally viewed and interpreted these images and I have reviewed and approved this report. ABDOMEN 1 VIEW Final Result IMPRESSION: Dobbhoff tube is looped in the distal stomach with tip in the proximal stomach. Repositioning/advancement recommended. ABDOMEN 1 VIEW Final Result IMPRESSION: Dobbhoff tube tip in the distal stomach. CHEST 1 VIEW PORTABLE Final Result IMPRESSION: No radiographic evidence of acute cardiopulmonary abnormality. ANGIO BRAIN/NECK Final Result IMPRESSION: 1. 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 2. Interval occlusion at the M1-M2 junction beginning at the origin of the dominant inferior branch of the right middle cerebral artery which is associated with poor distal collateralization. HEAD WITHOUT CONTRAST Final Result IMPRESSION: Evolving infarcts in the right RUBY and MCA distribution with hemorrhagic transformation in the right basal ganglia with unchanged focal hematoma. Mildly mass effect with leftward shift of 4 mm. CHEST 1 VIEW PORTABLE Final Result IMPRESSION: New bibasilar atelectasis status post placement of partially visualized feeding tube. HEAD WITHOUT CONTRAST Final Result IMPRESSION: Evolving infarcts in the right RUBY and MCA distribution with petechial hemorrhagic transformation in the right basal ganglia with unchanged focal hematoma. Mildly progressed mass effect with leftward shift of 4 mm. ABDOMEN 1 VIEW Final Result IMPRESSION: Dobbhoff tube with tip projecting over the pyloroduodenal region. Consider advancement to confirm postpyloric position. BRAIN WITHOUT CONTRAST Final Result IMPRESSION: Acute infarcts in the right RUBY and MCA territories with hemorrhagic transformation in the right basal ganglia and small volume intraventricular hemorrhage. Mass effect with mild leftward shift of 2 mm. HEAD WITHOUT CONTRAST Final Result IMPRESSION: No interval change in acute infarcts in the right RUBY and MCA distribution with a 1.4 cm hematoma in the right basal ganglia as confirmed on dual-energy CT. Similar mass effect and leftward shift of 3 mm. HEAD WITHOUT CONTRAST Final Result IMPRESSION: Evolving infarct involving a large portion of the right MCA vascular territory as described above, increased in extent in comparison to prior head CT. Hyperdensities involving the right basal ganglia likely represent a combination of hemorrhage and contrast staining. A more focal and hyperdense component involving the right globus pallidus is favored to represent hematoma. Further characterization and distinction of hemorrhage/contrast could be obtained with a dual energy CT if clinically indicated. The suspected hemorrhagic component is new in comparison to previous head CT from November 29, 2023. There is associated mass effect with effacement of the right lateral ventricle but minimal leftward midline shift at this point in time. Findings communicated to Dr. Powers on 11/30/2023 at 10:55 AM. 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 There is distal reconstitution of several right middle cerebral artery branches, likely related to collateral flow. Occlusion of the right M1 segment with distal reconstitution, as above. Short segment of occlusion of the proximal right A1 segment. Remainder of the anterior cerebral arteries are patent, without significant stenosis. CARDIOGRAM Final Result XR ABDOMEN 1 VIEW PORTABLE Final Result FINDINGS/IMPRESSION: Tubes: Feeding tube tip is just entering the duodenum. The lower pelvis was excluded. Normal bowel gas pattern. No definite pneumoperitoneum. ABDOMEN 1 VIEW PORTABLE Final Result IMPRESSION: Feeding tube with tip in the proximal stomach. If postpyloric position is desired further advancement is recommended. SPINE CERVICAL WITHOUT CONTRAST Final Result IMPRESSION: 1. No acute fracture or traumatic malalignment. 2. Degenerative changes as above. I personally viewed and interpreted these images and I have reviewed and approved this report. CEREBRAL PERFUSION ANALYSIS Final Result IMPRESSION: Large perfusion defect involving the right MCA and reticular striate territories. Completed infarct core in the basal ganglia with large volume of ischemic penumbra. STROKE HEAD-STROKE ALERT ONLY Final Result IMPRESSION: Acute nonhemorrhagic infarct in the right basal ganglia lenticulostriate distribution. No significant intracranial mass effect. Findings were discussed with Ryley Licea at 3:06 PM on November 29, 2023. I personally viewed and interpreted these images and I have reviewed and approved this report. RO IMAGING FOR NEURO ENDOVASCULAR (Results Pending) MEDICATIONS aspirin 81 mg Per NG tube Daily Atorvastatin 40 mg Per NG tube QHS carveDILOL 12.5 mg Per NG tube Q12HNS enoxaparin 40 mg Subcutaneous Daily lidocaine 2 patch Transdermal Q24H Lisinopril 40 mg Per NG tube Daily Stroke Attending Addendum (Date of service 12/15/23): I have interviewed and examined patient. I have reviewed Natalia Mohamud CNP's note and agree with the following highlights, additions, and addendums: The patient is a 78 y.o. female with a history of hypertension, hyperlipidemia, and prior TIA who on 11/28/232144 was LKN and then developed symptoms of left hemiparesis. Patient was taken to [facility] where Telestroke showed an NIHSS of 8. CT brain was negative for acute changes. OSH CT angiogram head/neck showed right [id number]. The patient did not receive IVtPA. Patient transferred to [facility] ER and initial NIHSS on arrival was 16. CT brain showed right MCA infarct. CT perfusion brain shows right MM (25/120mL). Baseline mRS-2. The patient was taken for intra-arterial therapy and had TICI 2b recanalization or right carotid T occlusion. The patient was transferred to [facility]. MRI brain diffusion weighted images shows acute right RUBY/MCA infarcts. LDL 130, HgbA1c 5.3. TTE EF >70%. BCx + Staph hominis /, ID consult felt contaminant, repeat BCx negative. PNA- completed course of CTX. GI attempted PEG 12/12- unsuccessful due to anatomy. CT abd- negative. Interval Overnight History: 148/69. Neurological examination shows left hemiparesis and neglect, NIHSS 17 (?-2, EOMI-2, LF-2, LUE-4, LLE-4, negl-2, dys-1). Assessment/Plan: Acute right MCA ischemic stroke, right carotid T occlusion s/p intra-arterial therapy with TICI 2b recanalization Post-stroke day #17. Stroke work-up completed. Continue daily anti-platelet medication (Asa) and vascular risk factor modification. On lipitor 40. On coreg, lisinopril. DVT prophylaxis with SCDs and lovenox SQ. PT/OT consults-SNF after PEG. EM on discharge. NPO- dobhoff for tube feeds. Gen surg consulted, PEG Mon. Skip Mcfarland MD NEUROVASCULAR STROKE SERVICE Daily Progress Note IDENTIFYING INFORMATION Aroldo Vargas MR# [id number] 12/15/2023 HISTORY OF PRESENT ILLNESS Aroldo Vargas is a 78 y.o. female with PMH significant for HTN, HLD, CAD, dementia, TIA who presented to an [facility] after family found her with L hemiplegia, L facial droop and slurred speech. Seen on tele, NIHSS 8. CTA showed R ICA occlusion. She was out of the window for IV thrombolytics. Transferred to [facility] for further management. LKW 2145 on 11/28. On arrival to [facility], NIHSS 16. CTH with evolving R MCA territory stroke. CTP with R MCA mismatch. mRS 2 at baseline. 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 INTERVAL HISTORY 11/30: Brain MRI pending. 12/05: Transfer out of [facility]. 12/06: Dobbhoff dislodged overnight, replaced, restrained. Consult ID for positive blood cultures, repeat cultures. Daughter updated at bedside. UE venous duplex. 12/07: atbx complete, NETBACKUP ADMINISTRATOR to re-eval, GI consulted for PEG planning 12/08: No overnight events. PEG likely early next week. 12/09: NAEON. 12/10: exam stable, discussed with GI, PEG tentative for tomorrow 12/11: PEG planned today. 12/12: PEG planned for today, vital signs stable. 12/13: GI unable to place PEG, consult gen surg. CT A/P pending. Exam and vitals stable. 12/14: CT A/P completed. Dysphagia improving, FEES Friday 12/15: No overnight events. Planning for FEES Sunday PHYSICAL EXAM Gen: NAD HEENT: normocephalic, no scalp lesions or tenderness Neck: trachea midline CV: +S1S2, RRR, no m/r/g Lungs: LCTA bilaterally with equal chest rise Abd: soft, nontender, nondistended, +BS x4 quadrants Extrem: Warm and well perfused Neuro: Opens eyes to speech, follows simple commands, states full name, disoriented to month and age. CN II - Does not blink to threat on left CN II/III - PERRLA CN III/IV/ - Right gaze deviation CN V - CN VII - Left facial droop CN VIII - Hearing intact CN X - Cough present CN XI - Left shoulder weakness CN XII - MOTOR EXAMINATION: Left hemiplegia NIHSS 12/15/2023 Provider NIH Stroke Scale NIH Interval (Provider): daily NIH Level of Conciousness (Provider): 0 NIH LOC Questions (Provider): 1 NIH LOC Commands (Provider): 0 NIH Best Gaze (Provider): 1 NIH Visual (Provider): 1 NIH Facial Palsy (Provider): 2 NIH Left Arm Motor (Provider): 4 NIH Right Arm Motor (Provider): 0 NIH Left Leg Motor (Provider): 4 NIH Right Leg Motor (Provider): 2 NIH Limb Ataxia (Provider): 0 NIH Sensory (Provider): 2 NIH Best Language (Provider): 1 NIH Dysarthria (Provider): 1 NIH Extinction and Inattention (Provider): 1 NIH Total Score (Provider): 20 ASSESSMENT AND PLAN Neuro: Acute right hemispheric strokes, Right ICA/MCA occlusion s/p TICI 2b revascularization: CTH: Evolving R MCA territory stroke, no hemorrhage OSH CTA brain/neck: R ICA/M1 occlusion CTP: Large R MCA mismatch with small right basal ganglia stroke MRI brain Acute infarcts in the right RUBY and MCA territories with hemorrhagic transformation in the right basal ganglia and small IVH TTE: EF >70% EKG on admission: NSR, QTc 429 LDL 130 HgbA1c 5.3 Repeat CTA brain/neck: ICA now open but there is occlusion of right M1-M2 junction. -Stroke Etiology (TOAST Criteria): Cryptogenic -Antiplatelet plan: Aspirin 81 mg daily -Statin therapy: Lipitor 40 mg daily -Blood Pressure goal: SBP <220 -Mobile cardiac telemetry for 30 days at discharge Ischemic Stroke Core Measures -NIHSS on admission 16 -Patient has been started on Mechanical (SCD's) and Pharmacological (SQ heparin/Lovenox) DVT prophylaxis. -Antiplatelet therapy has been initiated, Aspirin 81mg daily. -Anticoagulation therapy was not indicated for this patient -Patients LDL 130 and HgbA1c 5.3 were checked and the patient will be discharged on Atorvastatin daily. -Dysphagia screening ordered, and will be completed prior to patient receiving oral intake. -Stroke education booklet has been ordered and will be provided by the RN that includes both written and verbal education to the patient and family regarding ischemic strokes. We have reviewed the patient's personal modifiable risk factors including: HTN, HLD as well as education on reducing these risk factors -Patient is being assessed for Rehab by PT/OT/Speech and PM&R if indicated. HTN, POA: Nicardipine stopped 12/04 -Continue lisinopril 40 mg daily -Carvedilol 12.5 mg every 12 hours Dysphagia: Seen by speech, last 12/05, recommend NPO -Tube feeds via Dobbhoff -Discussed PEG tube with daughter on 12/06 -GI consulted 12/07, PEG unsuccessful 12/12 -General surgery consulted, CT A/P completed. -12/14 Dysphagia improving, FEES Sunday Likely Aspiration pneumonia: -completed 5 days ceftriaxone 2 gm daily on 12/07 Bacteremia: likely contaminant -Blood cultures from 12/02 and 12/04 show staphylococcus hominis in 1/2 sets -Consult ID: blood cultures likely contaminated, repeat blood cultures with no growth, signed off -Completed ceftriaxone 5 days as above Bilateral UE swelling: -BUE duplex negative for DVT, acute superficial thrombus in BUE Other problems: Complexity. Hyponatremia - Secondary to fluid shifts. Monitor. Obesity Body mass index is 37.02 kg/m . - Follow with PCP for dietary and lifestyle modifications. Disposition: Aroldo Vargas will be discharged after PEG tube placed. Natalia Mohamud APRN-COLLAR SETTER 12/15/2023 8:14 AM VITAL SIGNS Temp: [97.9 F (36.6 C)-98.8 F (37.1 C)] 97.9 F (36.6 C) Pulse (Heart Rate): [68-72] 72 Resp Rate: [16-22] 22 BP: (115-148)/(58-69) 148/69 O2 Sat (%): [95 %-96 %] 96 % Oxygen Therapy: Oxygen Therapy O2 Sat (%): 96 % O2 Device: room air Intake/Output: Intake/Output Summary (Last 24 hours) at 12/15/2023 0814 Last data filed at 12/15/2023 0605 Gross per 24 hour Intake 1113 ml Output 1000 ml Net 113 ml LABS/CULTURES Lab Results Component Value Date WBC 10.99 12/15/2023 HGB 10.3 (L) 12/15/2023 HCT 32.0 (L) 12/15/2023 PLATELET 387 12/15/2023 MCV 93.8 12/15/2023 Lab Results Component Value Date SODIUM 134 (L) 12/15/2023 POTASSIUM 4.1 12/15/2023 CHLORIDE 101 12/15/2023 CO2 25 12/15/2023 BUN 21 12/15/2023 CREATSERUM 0.51 12/15/2023 GLUCOSE 154 (H) 12/15/2023 Lab Results Component Value Date CHOLESTEROL 186 11/30/2023 TRIG 86 11/30/2023 HDL 39 (L) 11/30/2023 LDLCALC 130 (H) 11/30/2023 Lab Results Component Value Date HGBA1C 5.3 11/30/2023 Lab Results Component Value Date ALBUMIN 3.4 (L) 11/30/2023 , Lab Results Component Value Date CPK 82 11/29/2023 IMAGING/DIAGNOSTIC STUDIES CT ABDOMEN/PELVIS WITH CONTRAST Final Result IMPRESSION: 1. Few dilated loops of transverse colon between portions of the stomach and the abdominal wall. 2. No acute findings in the abdomen and pelvis. ABDOMEN 1 VIEW PORTABLE Final Result IMPRESSION: Feeding tube with tip in the expected location of the pyloric region. If postpyloric position is desired further advancement is recommended. DUPLEX VENOUS EXTREMITY UPPER BILATERAL Final Result XR ABDOMEN 1 VIEW Final Result IMPRESSION: Interval retraction of the Dobbhoff tube with the tip in the distal stomach pointed superiorly into the left. If postpyloric positioning is needed, repositioning prior to advancement is recommended. ABDOMEN 1 VIEW PORTABLE Final Result IMPRESSION: Dobbhoff tube remains coiled in the stomach with the tip in proximal stomach body. Discussed with Joycelyn Lala RN at 2:48am on Dec 06, 2023. I personally viewed and interpreted these images and I have reviewed and approved this report. ABDOMEN 1 VIEW Final Result IMPRESSION: Dobbhoff tube is looped in the distal stomach with tip in the proximal stomach. Repositioning/advancement recommended. ABDOMEN 1 VIEW Final Result IMPRESSION: Dobbhoff tube tip in the distal stomach. CHEST 1 VIEW PORTABLE Final Result IMPRESSION: No radiographic evidence of acute cardiopulmonary abnormality. ANGIO BRAIN/NECK Final Result IMPRESSION: 1. 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 2. Interval occlusion at the M1-M2 junction beginning at the origin of the dominant inferior branch of the right middle cerebral artery which is associated with poor distal collateralization. HEAD WITHOUT CONTRAST Final Result IMPRESSION: Evolving infarcts in the right RUBY and MCA distribution with hemorrhagic transformation in the right basal ganglia with unchanged focal hematoma. Mildly mass effect with leftward shift of 4 mm. CHEST 1 VIEW PORTABLE Final Result IMPRESSION: New bibasilar atelectasis status post placement of partially visualized feeding tube. HEAD WITHOUT CONTRAST Final Result IMPRESSION: Evolving infarcts in the right RUBY and MCA distribution with petechial hemorrhagic transformation in the right basal ganglia with unchanged focal hematoma. Mildly progressed mass effect with leftward shift of 4 mm. ABDOMEN 1 VIEW Final Result IMPRESSION: Dobbhoff tube with tip projecting over the pyloroduodenal region. Consider advancement to confirm postpyloric position. BRAIN WITHOUT CONTRAST Final Result IMPRESSION: Acute infarcts in the right RUBY and MCA territories with hemorrhagic transformation in the right basal ganglia and small volume intraventricular hemorrhage. Mass effect with mild leftward shift of 2 mm. HEAD WITHOUT CONTRAST Final Result IMPRESSION: No interval change in acute infarcts in the right RUBY and MCA distribution with a 1.4 cm hematoma in the right basal ganglia as confirmed on dual-energy CT. Similar mass effect and leftward shift of 3 mm. HEAD WITHOUT CONTRAST Final Result IMPRESSION: Evolving infarct involving a large portion of the right MCA vascular territory as described above, increased in extent in comparison to prior head CT. Hyperdensities involving the right basal ganglia likely represent a combination of hemorrhage and contrast staining. A more focal and hyperdense component involving the right globus pallidus is favored to represent hematoma. Further characterization and distinction of hemorrhage/contrast could be obtained with a dual energy CT if clinically indicated. The suspected hemorrhagic component is new in comparison to previous head CT from November 29, 2023. There is associated mass effect with effacement of the right lateral ventricle but minimal leftward midline shift at this point in time. Findings communicated to Dr. Powers on 11/30/2023 at 10:55 AM. 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 There is distal reconstitution of several right middle cerebral artery branches, likely related to collateral flow. Occlusion of the right M1 segment with distal reconstitution, as above. Short segment of occlusion of the proximal right A1 segment. Remainder of the anterior cerebral arteries are patent, without significant stenosis. CARDIOGRAM Final Result XR ABDOMEN 1 VIEW PORTABLE Final Result FINDINGS/IMPRESSION: Tubes: Feeding tube tip is just entering the duodenum. The lower pelvis was excluded. Normal bowel gas pattern. No definite pneumoperitoneum. ABDOMEN 1 VIEW PORTABLE Final Result IMPRESSION: Feeding tube with tip in the proximal stomach. If postpyloric position is desired further advancement is recommended. SPINE CERVICAL WITHOUT CONTRAST Final Result IMPRESSION: 1. No acute fracture or traumatic malalignment. 2. Degenerative changes as above. I personally viewed and interpreted these images and I have reviewed and approved this report. CEREBRAL PERFUSION ANALYSIS Final Result IMPRESSION: Large perfusion defect involving the right MCA and reticular striate territories. Completed infarct core in the basal ganglia with large volume of ischemic penumbra. STROKE HEAD-STROKE ALERT ONLY Final Result IMPRESSION: Acute nonhemorrhagic infarct in the right basal ganglia lenticulostriate distribution. No significant intracranial mass effect. Findings were discussed with Ryley Licea at 3:06 PM on November 29, 2023. I personally viewed and interpreted these images and I have reviewed and approved this report. [facility] IMAGING FOR NEURO ENDOVASCULAR (Results Pending) MEDICATIONS aspirin 81 mg Per NG tube Daily Atorvastatin 40 mg Per NG tube QHS carveDILOL 12.5 mg Per NG tube Q12HNS enoxaparin 40 mg Subcutaneous Daily lidocaine 2 patch Transdermal Q24H Lisinopril 40 mg Per NG tube Daily Polyethylene glycol 17 g Per NG tube Q12H Senna 17.2 mg Per NG tube Q12H Acute Care Speech Language Pathology Treatment Diet Recommendations: Recommended Method of Nutrition: NPO Recommended Medication Administration (as appropriate per MD): Non-Oral Plan for FEES early Sunday morning. *Consider ice chips and water following oral care, given strict 1:1 RN supervision to assist in secretions clearance and reduce risk of disuse atrophy. *To prevent potential development of aspiration pneumonia/nosocomial infections, RECOMMEND: Oral care routine q4h and HOB upright as tolerated Best mode of Communication: verbal Communication Strategies: allow extra time Discharge Recommendations: Based on the below outcome measures/assessment score(s), and NETBACKUP ADMINISTRATOR clinical judgment, discharge destination recommendation is: [facility] Barriers to discharge home: Need for 1:1 assist to ensure safety with all PO intake, 1:1 assist needed for IADL's including medication management and finances Supporting factors for discharge setting: Impaired swallow function limiting nutritional status and safety with oral intake, Impaired cognitive skills limiting safety/insight Acute NETBACKUP ADMINISTRATOR Outcomes Tracking Communicate basic wants and needs?: yes Demo insight/appreciation of deficits?: no Complete basic problem solving?: no Current therapy frequency recommendation in acute: Speech/Lang/Cog Therapy Frequency: 3 times a week Swallow Therapy Frequency: 5 times a week Clinical Impression: Improved bolus acceptance and endurance for po intake for the first time across admission. Sustained engagement across 100% of trials, inquired about prognosis and is agreeable to proceed with instrumental as she continues with overt coughs c/f aspiration with all liquid consistencies. Subjective information: Alert with improving verbal responses compared to prior sessions. Able to express wants and needs Pain: Nonverbal indicator not present Precautions: Patient Safety Communication Prior to Visit: Nursing Lines/Tubes/Drains (Rehab Status): Telemetry, Tube feed Existing Precautions/Restrictions: fall Respiratory Status: Room air Acute NETBACKUP ADMINISTRATOR Goals Plan of Care by AMADO Solis at 12/14/2023 2:08 PM Version 1 of 1 Problem: Dysphagia Goal: Ongoing Assessment - Patient will participate in ongoing assessment by accepting various PO consistency trials with appropriate participation/oral acceptance and no significant respiratory complications to determine readiness for po diet vs instrumental Addressed via ice x3, thin liquids, mildly thick, and moderately thick liquids x5 each and puree x1/2 cup. She sustained engagement across all trials with functional acceptance, oral clearance. Delayed coughs after all consistencies, concerning for aspiration. She denied wrong pipe sensation, though endorsed globus. Agreeable to instrumental. Recommend proceeding with FEES as this can guarantee scheduling early Sunday. Outcome: Completed Patient Instruction/Education this session: Role of NETBACKUP ADMINISTRATOR, ongoing signs of dysphagia. Improved from prior sessions - patient asked appropriate follow up questions and asked "what else can I do?" Encouraged water with assist to increase swallow frequency Plan for next session: bolus challenge trials, determine readiness for instrumental NETBACKUP ADMINISTRATOR Outcomes: FOIS2 Speech Language Pathologist: AMADO Solis Time In: 1340 Time Out: 1400 Total Visit Time: 20 minutes Total Treatment Time (skilled, billable minutes): 20 minutes Non-billable assistance during session: na Assisted by during session: INTEGRITY ASSESSOR PPE used during patient interaction: facemask, gloves Patient location/status at end of session: bed with head of bed elevated Patient alarms at end of session: none altered Needs in reach. NETBACKUP ADMINISTRATOR Evaluation and Treatment Time Swallowing Dysfunction Treatment 09182: 20 Upon discontinuation of Acute Care Speech Therapy Services or patient discharge from the hospital this note represents the current Speech Therapy Discharge Summary Stroke Attending Addendum (Date of service 12/14/23): I have interviewed and examined patient. I have reviewed Ryley Licea CNP's note and agree with the following highlights, additions, and addendums: The patient is a 78 y.o. female with a history of hypertension, hyperlipidemia, and prior TIA who on 11/28/232144 was LKN and then developed symptoms of left hemiparesis. Patient was taken to [facility] where Telestroke showed an NIHSS of 8. CT brain was negative for acute changes. OSH CT angiogram head/neck showed right carotidT/[id number]. The patient did not receive IVtPA. Patient transferred to [facility] ER and initial NIHSS on arrival was 16. CT brain showed right MCA infarct. CT perfusion brain shows right MM (25/120mL). Baseline mRS-2. The patient was taken for intra-arterial therapy and had TICI 2b recanalization or right carotid T occlusion. The patient was transferred to [facility]. MRI brain diffusion weighted images shows acute right RUBY/MCA infarcts. LDL 130, HgbA1c 5.3. TTE EF >70%. BCx + Staph hominis 11/20, ID consult felt contaminant, repeat BCx negative. PNA- completed course of CTX. GI attempted PEG 12/12- unsuccessful due to anatomy. CT abd- negative. Interval Overnight History: 141/69. Neurological examination shows left hemiparesis and neglect, NIHSS 17 (?-2, EOMI-2, LF-2, LUE-4, LLE-4, negl-2, dys-1). Assessment/Plan: Acute right MCA ischemic stroke, right carotid T occlusion s/p intra-arterial therapy with TICI 2b recanalization Post-stroke day #16. Stroke work-up completed. Continue daily anti-platelet medication (Asa) and vascular risk factor modification. On lipitor 40. On coreg, lisinopril. DVT prophylaxis with SCDs and lovenox SQ. PT/OT consults-SNF after PEG. EM on discharge. NPO- dobhoff for tube feeds. Gen surg consulted, PEG Mon. Skip Mcfarland MD NUTRITION FOLLOW UP Nutrition Recommendations and Plan of Care: 1. Increase TF to goal: Jevity 1.5 @ 50 mL/hr. 2. Diet per NETBACKUP ADMINISTRATOR. 3. Monitor TF intake, diet advancement, bowel function, skin integrity, weight change, lab values. 4. RD to follow. Aroldo Vargas is a 78 y.o. female with h/o HTN, HLD, CAD, dementia, TIA who presented to an [facility] after family found her with L hemiplegia, L facial droop and slurred speech. Seen on tele, NIHSS 8. CTA showed R ICA occlusion. She was out of the window for IV thrombolytics. Transferred to [facility] for further management. NSGY was consulted, TICI 2B revascularization was achieved for long segment occlusion of R ICA to R M2. Plan for PEG placement by surgery likely Sunday 12/17. Assessment: Pt seen for nutrition follow up. Per RN, pt only oriented to self in the setting of dementia. Unable to obtain nutrition history form pt at this time and not appropriate to perform NFPE. Remains NPO per last NETBACKUP ADMINISTRATOR note 12/07. TF was changed by RD on 12/07 to standard formula of Jevity 1.5 and was started at goal. TF held for most of day on 12/11 for possible PEG placement and restarted at goal at 1739 12/11. Held again at midnight 12/12 for PEG placement however was unsuccessful per GI. Restarted at goal at 2329 12/12. TF was last held on 12/13 pm for possible PEG per RN and restarted at 10 mL/hr at 0858 12/14. Unable to calculate TF intake for the last several days d/t incomplete intake documentation in I&O. Diet Order Current Diet Orders Procedures DIET NPO with meds Standing Status: Standing Number of Occurrences: 1 Order Specific Question: NPO Meds: Answer: with meds Ht: 5' 2"/157.5 cm CBW (11/30): 202#/91.8 kg BMI: 37 kg/(m^2) Admit Wt: 202#/91.8 kg IBW (adjusted for BMI 25): 136.4#/62 kg Weight History: no updated wt obtained since admission Meds reviewed: lipitor, miralax, senna, Jevity 1.5 @ 10 mL/hr Labs reviewed: Na/K+/Phos/Mg/Ca: 131/4.4/--/1.8/-- (12/14 426) WBC/Hgb/Hct/Plts: 10.04/10.5/32.5/390 (12/14 426) Bun/Creat/Cl/CO2/Glucose: 20/0.51/100/26/107 (12/14 426) GI: +DHT, soft, NT, ND, hypoative BS Last BM 12/13 AXR 12/12- Feeding tube with tip in the expected location of the pyloric region. Skin: José Miguel Score: 13 L radial skin tear, R arm skin tear Edema - 1+ R arm, 2+ L arm Estimated Nutrition Needs: EEN: [id number] (25-30 kcal/kg adj IBW) EPN: 74-93 (1.2-1.5 g/kg adj IBW) Malnutrition Diagnosis: Indications of Malnutrition: Unable to assess (d/t mental status) based on the AND/ASPEN Malnutrition Criteria 2012 Pt remains at nutrition risk due to clinical status, HTN, HLD, CAD, dementia, TIA, acute ischemia stroke, dysphagia, TF dependence. Please note I am providing coverage for this day. For primary dietitian contact information or up to date coverage please see [employer]Genda schedule for "Dietitian". Thank you. Nusrat MCLAUGHLIN, BELINDA, [facility] Pager #[phone] NEUROVASCULAR STROKE SERVICE Daily Progress Note IDENTIFYING INFORMATION Aroldo Vargas MR# [id number] 12/14/2023 HISTORY OF PRESENT ILLNESS Aroldo Vargas is a 78 y.o. female with PMH significant for HTN, HLD, CAD, dementia, TIA who presented to an [facility] after family found her with L hemiplegia, L facial droop and slurred speech. Seen on tele, NIHSS 8. CTA showed R ICA occlusion. She was out of the window for IV thrombolytics. Transferred to [facility] for further management. LKW 2145 on 11/28. On arrival to [facility], NIHSS 16. CTH with evolving R MCA territory stroke. CTP with R MCA mismatch. mRS 2 at baseline. 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 INTERVAL HISTORY 11/30: Brain MRI pending. 12/05: Transfer out of [facility]. 12/06: Dobbhoff dislodged overnight, replaced, restrained. Consult ID for positive blood cultures, repeat cultures. Daughter updated at bedside. UE venous duplex. 12/07: atbx complete, NETBACKUP ADMINISTRATOR to re-eval, GI consulted for PEG planning 12/08: No overnight events. PEG likely early next week. 12/09: NAEON. 12/10: exam stable, discussed with GI, PEG tentative for tomorrow 12/11: PEG planned today. 12/12: PEG planned for today, vital signs stable. 12/13: GI unable to place PEG, consult gen surg. CT A/P pending. Exam and vitals stable. 12/14: CT A/P completed. Dysphagia improving, FEES Sunday PHYSICAL EXAM Gen: NAD HEENT: normocephalic, no scalp lesions or tenderness Neck: trachea midline CV: +S1S2, RRR, no m/r/g Lungs: LCTA bilaterally with equal chest rise Abd: soft, nontender, nondistended, +BS x4 quadrants Extrem: Warm and well perfused Neuro: Opens eyes to speech, follows simple commands, incomprehensible speech CN II - Does not blink to threat on left CN II/III - PERRLA CN III/IV/ - Right gaze deviation CN V - CN VII - Left facial droop CN VIII - Hearing intact CN X - Cough present CN XI - Left shoulder weakness CN XII - MOTOR EXAMINATION: Left hemiplegia NIHSS 12/14/2023 Provider NIH Stroke Scale NIH Interval (Provider): daily NIH Level of Conciousness (Provider): 0 NIH LOC Questions (Provider): 2 NIH LOC Commands (Provider): 0 NIH Best Gaze (Provider): 1 NIH Visual (Provider): 1 NIH Facial Palsy (Provider): 2 NIH Left Arm Motor (Provider): 4 NIH Right Arm Motor (Provider): 0 NIH Left Leg Motor (Provider): 4 NIH Right Leg Motor (Provider): 2 NIH Limb Ataxia (Provider): 0 NIH Sensory (Provider): 2 NIH Best Language (Provider): 1 NIH Dysarthria (Provider): 1 NIH Extinction and Inattention (Provider): 1 NIH Total Score (Provider): 21 ASSESSMENT AND PLAN Neuro: Acute right hemispheric strokes, Right ICA/MCA occlusion s/p TICI 2b revascularization: CTH: Evolving R MCA territory stroke, no hemorrhage OSH CTA brain/neck: R ICA/M1 occlusion CTP: Large R MCA mismatch with small right basal ganglia stroke MRI brain Acute infarcts in the right RUBY and MCA territories with hemorrhagic transformation in the right basal ganglia and small IVH TTE: EF >70% EKG on admission: NSR, QTc 429 LDL 130 HgbA1c 5.3 Repeat CTA brain/neck: ICA now open but there is occlusion of right M1-M2 junction. -Stroke Etiology (TOAST Criteria): Cryptogenic -Antiplatelet plan: Aspirin 81 mg daily -Statin therapy: Lipitor 40 mg daily -Blood Pressure goal: SBP <220 -Mobile cardiac telemetry for 30 days at discharge Ischemic Stroke Core Measures -NIHSS on admission 16 -Patient has been started on Mechanical (SCD's) and Pharmacological (SQ heparin/Lovenox) DVT prophylaxis. -Antiplatelet therapy has been initiated, Aspirin 81mg daily. -Anticoagulation therapy was not indicated for this patient -Patients LDL 130 and HgbA1c 5.3 were checked and the patient will be discharged on Atorvastatin daily. -Dysphagia screening ordered, and will be completed prior to patient receiving oral intake. -Stroke education booklet has been ordered and will be provided by the RN that includes both written and verbal education to the patient and family regarding ischemic strokes. We have reviewed the patient's personal modifiable risk factors including: HTN, HLD as well as education on reducing these risk factors -Patient is being assessed for Rehab by PT/OT/Speech and PM&R if indicated. HTN, POA: Nicardipine stopped 12/04 -Continue lisinopril 40 mg daily -Carvedilol 12.5 mg every 12 hours Dysphagia: Seen by speech, last 12/05, recommend NPO -Tube feeds via Dobbhoff -Discussed PEG tube with daughter on 12/06 -GI consulted 12/07, PEG unsuccessful 12/12 -General surgery consulted, CT A/P completed. -12/14 Dysphagia improving, FEES Sunday Likely Aspiration pneumonia: -completed 5 days ceftriaxone 2 gm daily on 12/07 Bacteremia: likely contaminant -Blood cultures from 12/02 and 12/04 show staphylococcus hominis in 1/2 sets -Consult ID: blood cultures likely contaminated, repeat blood cultures with no growth, signed off -Completed ceftriaxone 5 days as above Bilateral UE swelling: -BUE duplex negative for DVT, acute superficial thrombus in BUE Other problems: Complexity. Hyponatremia - Secondary to fluid shifts. Monitor. Obesity Body mass index is 37.02 kg/m . - Follow with PCP for dietary and lifestyle modifications. Disposition: Aroldo Vargas will be discharged after PEG tube placed. Ryley Licea, ANGELO-COLLAR SETTER 12/14/2023 9:13 AM VITAL SIGNS Temp: [97.2 F (36.2 C)-98.3 F (36.8 C)] 97.2 F (36.2 C) Pulse (Heart Rate): [62-69] 62 Resp Rate: [16-18] 16 BP: (125-152)/(58-69) 141/69 O2 Sat (%): [95 %-99 %] 97 % Oxygen Therapy: Oxygen Therapy O2 Sat (%): 97 % O2 Device: room air Intake/Output: Intake/Output Summary (Last 24 hours) at 12/14/2023 0913 Last data filed at 12/14/2023 0755 Gross per 24 hour Intake 120 ml Output 1725 ml Net -1605 ml LABS/CULTURES Lab Results Component Value Date WBC 10.04 12/14/2023 HGB 10.5 (L) 12/14/2023 HCT 32.5 (L) 12/14/2023 PLATELET 390 12/14/2023 MCV 94.8 12/14/2023 Lab Results Component Value Date SODIUM 131 (L) 12/14/2023 POTASSIUM 4.4 12/14/2023 CHLORIDE 100 12/14/2023 CO2 26 12/14/2023 BUN 20 12/14/2023 CREATSERUM 0.51 12/14/2023 GLUCOSE 107 (H) 12/14/2023 Lab Results Component Value Date CHOLESTEROL 186 11/30/2023 TRIG 86 11/30/2023 HDL 39 (L) 11/30/2023 LDLCALC 130 (H) 11/30/2023 Lab Results Component Value Date HGBA1C 5.3 11/30/2023 Lab Results Component Value Date ALBUMIN 3.4 (L) 11/30/2023 , Lab Results Component Value Date CPK 82 11/29/2023 IMAGING/DIAGNOSTIC STUDIES CT ABDOMEN/PELVIS WITH CONTRAST Final Result IMPRESSION: 1. Few dilated loops of transverse colon between portions of the stomach and the abdominal wall. 2. No acute findings in the abdomen and pelvis. ABDOMEN 1 VIEW PORTABLE Final Result IMPRESSION: Feeding tube with tip in the expected location of the pyloric region. If postpyloric position is desired further advancement is recommended. DUPLEX VENOUS EXTREMITY UPPER BILATERAL Final Result XR ABDOMEN 1 VIEW Final Result IMPRESSION: Interval retraction of the Dobbhoff tube with the tip in the distal stomach pointed superiorly into the left. If postpyloric positioning is needed, repositioning prior to advancement is recommended. ABDOMEN 1 VIEW PORTABLE Final Result IMPRESSION: Dobbhoff tube remains coiled in the stomach with the tip in proximal stomach body. Discussed with Joycelyn Lala RN at 2:48am on Dec 06, 2023. I personally viewed and interpreted these images and I have reviewed and approved this report. ABDOMEN 1 VIEW Final Result IMPRESSION: Dobbhoff tube is looped in the distal stomach with tip in the proximal stomach. Repositioning/advancement recommended. ABDOMEN 1 VIEW Final Result IMPRESSION: Dobbhoff tube tip in the distal stomach. CHEST 1 VIEW PORTABLE Final Result IMPRESSION: No radiographic evidence of acute cardiopulmonary abnormality. ANGIO BRAIN/NECK Final Result IMPRESSION: 1. 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 2. Interval occlusion at the M1-M2 junction beginning at the origin of the dominant inferior branch of the right middle cerebral artery which is associated with poor distal collateralization. HEAD WITHOUT CONTRAST Final Result IMPRESSION: Evolving infarcts in the right RUBY and MCA distribution with hemorrhagic transformation in the right basal ganglia with unchanged focal hematoma. Mildly mass effect with leftward shift of 4 mm. CHEST 1 VIEW PORTABLE Final Result IMPRESSION: New bibasilar atelectasis status post placement of partially visualized feeding tube. HEAD WITHOUT CONTRAST Final Result IMPRESSION: Evolving infarcts in the right RUBY and MCA distribution with petechial hemorrhagic transformation in the right basal ganglia with unchanged focal hematoma. Mildly progressed mass effect with leftward shift of 4 mm. ABDOMEN 1 VIEW Final Result IMPRESSION: Dobbhoff tube with tip projecting over the pyloroduodenal region. Consider advancement to confirm postpyloric position. BRAIN WITHOUT CONTRAST Final Result IMPRESSION: Acute infarcts in the right RUBY and MCA territories with hemorrhagic transformation in the right basal ganglia and small volume intraventricular hemorrhage. Mass effect with mild leftward shift of 2 mm. HEAD WITHOUT CONTRAST Final Result IMPRESSION: No interval change in acute infarcts in the right RUBY and MCA distribution with a 1.4 cm hematoma in the right basal ganglia as confirmed on dual-energy CT. Similar mass effect and leftward shift of 3 mm. HEAD WITHOUT CONTRAST Final Result IMPRESSION: Evolving infarct involving a large portion of the right MCA vascular territory as described above, increased in extent in comparison to prior head CT. Hyperdensities involving the right basal ganglia likely represent a combination of hemorrhage and contrast staining. A more focal and hyperdense component involving the right globus pallidus is favored to represent hematoma. Further characterization and distinction of hemorrhage/contrast could be obtained with a dual energy CT if clinically indicated. The suspected hemorrhagic component is new in comparison to previous head CT from November 29, 2023. There is associated mass effect with effacement of the right lateral ventricle but minimal leftward midline shift at this point in time. Findings communicated to Dr. Powers on 11/30/2023 at 10:55 AM. 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 There is distal reconstitution of several right middle cerebral artery branches, likely related to collateral flow. Occlusion of the right M1 segment with distal reconstitution, as above. Short segment of occlusion of the proximal right A1 segment. Remainder of the anterior cerebral arteries are patent, without significant stenosis. CARDIOGRAM Final Result XR ABDOMEN 1 VIEW PORTABLE Final Result FINDINGS/IMPRESSION: Tubes: Feeding tube tip is just entering the duodenum. The lower pelvis was excluded. Normal bowel gas pattern. No definite pneumoperitoneum. ABDOMEN 1 VIEW PORTABLE Final Result IMPRESSION: Feeding tube with tip in the proximal stomach. If postpyloric position is desired further advancement is recommended. SPINE CERVICAL WITHOUT CONTRAST Final Result IMPRESSION: 1. No acute fracture or traumatic malalignment. 2. Degenerative changes as above. I personally viewed and interpreted these images and I have reviewed and approved this report. CEREBRAL PERFUSION ANALYSIS Final Result IMPRESSION: Large perfusion defect involving the right MCA and reticular striate territories. Completed infarct core in the basal ganglia with large volume of ischemic penumbra. STROKE HEAD-STROKE ALERT ONLY Final Result IMPRESSION: Acute nonhemorrhagic infarct in the right basal ganglia lenticulostriate distribution. No significant intracranial mass effect. Findings were discussed with Ryley Licea at 3:06 PM on November 29, 2023. I personally viewed and interpreted these images and I have reviewed and approved this report. RO IMAGING FOR NEURO ENDOVASCULAR (Results Pending) MEDICATIONS aspirin 81 mg Per NG tube Daily Atorvastatin 40 mg Per NG tube QHS carveDILOL 12.5 mg Per NG tube Q12HNS enoxaparin 40 mg Subcutaneous Daily lidocaine 2 patch Transdermal Q24H Lisinopril 40 mg Per NG tube Daily Polyethylene glycol 17 g Per NG tube Q12H Senna 17.2 mg Per NG tube Q12H Stroke Attending Addendum (Date of service 12/13/23): I have interviewed and examined patient. I have reviewed Ryley Licea CNP's note and agree with the following highlights, additions, and addendums: The patient is a 78 y.o. female with a history of hypertension, hyperlipidemia, and prior TIA who on 11/28/232144 was LKN and then developed symptoms of left hemiparesis. Patient was taken to [facility] where Telestroke showed an NIHSS of 8. CT brain was negative for acute changes. OSH CT angiogram head/neck showed right carotidT/[id number]. The patient did not receive IVtPA. Patient transferred to [facility] ER and initial NIHSS on arrival was 16. CT brain showed right MCA infarct. CT perfusion brain shows right MM (25/120mL). Baseline mRS-2. The patient was taken for intra-arterial therapy and had TICI 2b recanalization or right carotid T occlusion. The patient was transferred to [facility]. MRI brain diffusion weighted images shows acute right RUBY/MCA infarcts. LDL 130, HgbA1c 5.3. TTE EF >70%. BCx + Staph hominis 11/20, ID consult felt contaminant, repeat BCx negative. PNA- completed course of CTX. Interval Overnight History: 134/63. GI attempted PEG 12/12- unsuccessful due to anatomy. Neurological examination shows left hemiparesis and neglect, NIHSS 17 (?-2, EOMI-2, LF-2, LUE-4, LLE-4, negl-2, dys-1). Assessment/Plan: Acute right MCA ischemic stroke, right carotid T occlusion s/p intra-arterial therapy with TICI 2b recanalization Post-stroke day # 15. Stroke work-up completed. Continue daily anti-platelet medication (Asa) and vascular risk factor modification. On lipitor 40. On coreg, lisinopril. DVT prophylaxis with SCDs and lovenox SQ. PT/OT consults-SNF, after PEG. EM on discharge. NPO- dobhoff for tube feeds. Gen surg consulted, CT abdomen ordered per Gen surg. Skip Mcfarland MD Acute Physical Therapy Treatment Prior to Admission [facility] score(s): PRIOR LEVEL AM-PAC Activity Raw Score: 24 Current AM-PAC score(s): CURRENT AM-PAC Mobility Raw Score: 6 Based on the above AM-PAC score(s) and PT clinical judgment, patient is a good candidate for discharge to [facility] Barriers to discharge home: Patient needs assistance with functional mobility Mobility equipment available at home: 2 wheeled walker, none used ADL equipment available at home: Equipment needed for discharge: to be determined Current therapy frequency recommendation in acute: Therapy Frequency: 5 times a week Precautions and Weightbearing Status: Existing Precautions/Restrictions: fall Telemetry, Tube feed Patient Safety Communication Prior to Visit: Nursing Subjective: Pt with improved visual attention to left side, able to state name and reports being agreeable to participate Pain: General Pain Documentation (Adult, OB, Peds) Presence of Pain: not present: non-verbal indicator of pain/discomfort Presence of Pain Score (Auto-calculated): 0 Pain Location: (pain with stretching of neck- facial grimmacing) Objective/Observation: Vitals/Vitals Responses to Treatment: WFL O2 Device: room air Cognition Overall Cognitive Status: Impaired Arousal/Alertness: Inconsistent responses to stimuli Orientation Level: Oriented to person Following Commands: Follows one step commands with increased time, Follows one step commands with repetition (50% of the time) Extremity Assessments: See PT Evaluation flowsheet for Extremity Measurement updates. Skin and Edema: Balance: Sitting Balance Static Sitting-Level of Assistance: Maximum assistance Dynamic Sitting-Level of Assistance: Dependent Skilled Rationale: Positioning, Sequencing, Hand placement, Verbal cues Sitting Balance Skilled Intervention/Details: Pt completed EOB sitting x 14-15 minutes with max/dependent assist. Pt attempted to use right UE to assist in midline posture, however requires assist. Pt with retro and left lateral leaning Mobility Assessment/Intervention: Supine to Sit Mobility [place] Level: Supine->Sit: dependent (less than 25% patient effort) Physical Assist: Supine->Sit: 2 person assist Bed Features/Set-up: Supine->Sit: Head of bed elevated, Use of bed rail Skilled Rationale: Positioning, Sequencing, Hand placement, Verbal cues Skilled Intervention/Details: Supine->Sit: Attempted to educate patient in jenn-technique with use of bedrail Sit to Supine Mobility [place] Level: Sit->Supine: dependent (less than 25% patient effort) Physical Assist: Sit->Supine: 2 person assist Bed Features/Set-up: Sit->Supine: Flat Transfer Assessment/Intervention: Gait/Functional Mobility Assessment/Intervention: Stairs Assessment/Intervention: Outcome Score(s): CURRENT [facility] Basic Mobility Inpatient Short Form Turning over in bed: 1 - Total Assistance Sitting/standing from chair: 1 - Total Assistance Moving from lying on back to sittin - Total Assistance Moving to and from bed to chair: 1 - Total Assistance Walk in hospital room: 1 - Total Assistance Climbing 3-5 steps with a railin - Total Assistance CURRENT [facility] Mobility Raw Score: 6 CURRENT [facility] Mobility Functional Limitation/Modifier: 100.00% Currently Impaired in Basic Mobility Currently Impaired in Basic Mobility - CN Interventions: Intervention 1 Intervention Name: LE therex Sets/Reps/Duration: Educated in patient in right LE ther ex in all planes, PT completed passive range of motion of left LE with emphasis on patient visually attending to LE durin range. Pt with improved left visual attention. Completed neuro re-ed through self touch of left UE/LE to improve awareness of extremities Assessment & Plan: Pt making good progress toward therapy goals, improved balance/endurance and left visual scanning Patient Instruction/Education this session: role of PT and PT plan of care Plan for next session: Continue to progress EOB sitting tolerance with decreased assist Acute PT Goals Plan of Care by Estefani Duarte PT at 12/13/2023 12:42 PM Version 1 of 1 Problem: PT - General Goals Goal: Supine <-> Sit Transfers - Patient will perform supine to/from sit transfers with minimal assistance and of 2 people and with use of hospital bed features in order to improve functional mobility and safety. Outcome: Progressing Toward Goal Goal: Sitting Endurance/Balance - Patient will perform seated balance tasks for 10 minutes with minimal assistance and bilateral UE support Outcome: Progressing Toward Goal Goal: Sit <-> Stand Transfers - Patient will perform sit to/from stand transfers with moderate assistance and of 2 people and least restrictive device in order to improve functional mobility and safety. Outcome: Progressing Toward Goal Goal: Strength - Patient will demonstrate understanding of exercise program. Outcome: Progressing Toward Goal PT treatment consisted of the following to progress towards the above goal(s): PT Evaluation and Treatment Time Therapeutic Exercise Time Entry: 10 Neuromuscular Re-Education Time Entry: 15 Treating Therapist: Estefani Duarte PT Additional Details: PT Co-Eval/Treatment Information Co-evaluation/co-treatment performed?: Yes, simultaneous billable skilled care was necessary due to medical complexity and functional deficits Other discipline: OT Rationale for need to co-eval/treat: cognitive issues, coordination issues, postural control Co-treatment goal focus: balance PPE used during patient interaction: facemask, gloves Patient location at end of session: bed with head of bed elevated Alarms on at end of session: wrist restraints, bed alarm Needs in reach. Time In: 900 Time Out: 925 Total Visit Time: 25 minutes Total Treatment Time (skilled, billable minutes): 25 minutes Upon discontinuation of Acute Care Physical Therapy Services or patient discharge from the hospital this note represents the current Physical Therapy Discharge Summary. Acute Occupational Therapy Treatment Prior to Admission AM-PAC Score: PRIOR LEVEL AM-PAC Activity Raw Score: 24 Current AM-PAC score(s): CURRENT AM-PAC Mobility Raw Score: 6 CURRENT AM-PAC Activity Raw Score: 7 Based on the above AM-PAC score(s), and OT clinical judgment, discharge destination recommendation is: [facility] Barriers to discharge home: Patient needs assistance with ADLs, Patient needs assistance with IADLs (see note below), Cognitive impairments that impact safety (see note below) Mobility equipment available at home: 2 wheeled walker, none used ADL equipment available at home: Equipment recommendations for discharge: to be determined Current therapy frequency recommendation(s) in acute: 5 times a week Precautions and Weightbearing Status: OT Existing Precautions/Restrictions: fall Telemetry, Tube feed Patient Safety Communication Prior to Visit: Nursing Subjective: Pt with limited verbalization Pain: General Pain Documentation (Adult, OB, Peds) Presence of Pain: not present: non-verbal indicator of pain/discomfort Presence of Pain Score (Auto-calculated): 0 Objective/Observation: Vitals/Vitals Responses to Treatment: VSS O2 Device: room air Vision Screen Currently wearing corrective lenses: No Clinical Observations: Pt slight increase tracking past midline to L side but unable to sustain. Speech Speech: slurred speech Hearing Hearing: no gross deficits noted Cognition Overall Cognitive Status: Impaired Arousal/Alertness: Inconsistent responses to stimuli Orientation Level: Oriented to person Following Commands: Follows commands 25-50% of the time Safety Judgment: Decreased awareness of need for safety, Decreased awareness of need for assistance Awareness of Errors: Decreased awareness of errors Deficits: Not aware of deficits Attention Span: Difficulty attending to directions Memory: Unable to assess Problem Solving: Assistance required to identify errors made, Assistance required to generate solutions Cognition Comments: R side head turn and gaze. ADL Assessment/Intervention: ADLs: Eating Assistance: Grooming Assistance: Moderate Grooming Location: edge of bed Grooming Deficit: Activity tolerance, Generalized weakness, Oral care, Balance Grooming Skilled Rationale (Verbal/Tactile/Visual/Demonstration): Setup, Supervision, Facilitate postural control, Facilitate positioning Grooming Intervention/Details: Dep/max A for sitting balance while completeing brushing teeth EOB. Bathing Assistance: UE Dressing Assistance: LE Dressing Assistance: Toilet Assistance: Extremity Assessments: See OT Evaluation flowsheet for Extremity Measurement updates. Balance: Sitting Balance Static Sitting-Level of Assistance: Maximum assistance Skilled Rationale: Positioning, Hand placement, Verbal cues, Tactile cues, Finding/maintaining midline positioning, Full extension to upright positioning/posture Sitting Balance Skilled Intervention/Details: Pt completed EOB sitting for approx 15 min with dep/max A. Pt requires cues to correct L side lean and to maintain midline posture. Skin and Edema: Mobility Assessment/Intervention: Rolling/Turning Mobility [place] Level: Rolling/Turning: dependent (less than 25% patient effort) Physical Assist: Rolling/Turnin person assist Bed Features/Set-up: Rolling/Turning: Head of bed elevated Skilled Rationale: Verbal cues, Tactile cues Skilled Intervention/Details: Rolling/Turning: Cues required for hand placement, and initiation of task. Scooting Bridging Mobility [place] Level: Scooting/Bridging: dependent (less than 25% patient effort) Physical Assist: Scooting/Bridgin person assist Bed Features/Set-up: Scooting/Bridging: Flat Skilled Rationale: Verbal cues Skilled Intervention/Details: Scooting/Bridging: boost in bed Supine to Sit Mobility [place] Level: Supine->Sit: dependent (less than 25% patient effort) Physical Assist: Supine->Sit: 2 person assist Bed Features/Set-up: Supine->Sit: Head of bed elevated Skilled Rationale: Verbal cues Skilled Intervention/Details: Supine->Sit: Pt unable to initiate task with cues. Sit to Supine Mobility [place] Level: Sit->Supine: dependent (less than 25% patient effort) Physical Assist: Sit->Supine: 2 person assist Bed Features/Set-up: Sit->Supine: Flat Skilled Rationale: Verbal cues Skilled Intervention/Details: Sit->Supine: Pt unable to initiate task with cues, dep A x2 for trunk and LE stability. Transfer Assessment/Intervention: Functional Mobility: CURRENT [facility] Daily Activity Inpatient Short Form Putting on/Taking Off Lower Body Clothin - Total Assistance Bathin - Total Assistance Toiletin - Total Assistance Putting on/Taking Off Upper Body Clothin - Total Assistance Groomin - A Lot of Assistance Eatin - Total Assistance CURRENT [facility] Activity Raw Score: 7 CURRENT [facility] Activity Functional Limitation/Modifier: 92.44% Currently Impaired in Daily Activity - CM Interventions: Assessment & Plan: Pt completed self-care task of oral care hygiene seated at EOB. Pt was challenged to maintain upright posture and static sitting balance. Pt requires max cues to attend to L side of her body. Pt demonstrated slight increase in L side visual tracking compared to previous sessions, however, still presents with significant limitations. Pt should continue to receive skilled OT services to maximize functional outcomes. Patient Instruction/Education this session: Plan for next session: Continue to challenge L visual scanning. Continue to increase EOB sitting balance while engaged in functional task. Acute OT Goals Plan of Care by Desirae Quintero OT at 12/13/2023 9:25 AM Version 1 of 1 Problem: OT - Transfers Goal: Transfers Supine -> Sit - Patient will perform supine to/from sit with flat bed & no rail and maximal assistance to improve participation in ADLs. Outcome: Ongoing Problem: OT - Cognition Goal: Cognition Simple ADL - Patient will demonstrate improved cognition, completing simple ADL task for 10 minutes with no greater than min cues required to maintain attention. Outcome: Ongoing Problem: OT - ADLs Goal: Grooming - Patient will complete grooming edge of bed with minimal assistance for improved ability to safely complete ADLs. Outcome: Progressing Toward Goal Problem: OT - Balance Goal: Balance - Seated - Patient will perform 15 minutes of functional task in sitting with moderate assistance and fair balance to promote safety during self-care activities. Outcome: Progressing Toward Goal Problem: OT - Vision Goal: Visual Tracking - Patient will track past midline to left during session with no greater than mod cues to attend to familiar object/person for ADL participation in 5/5 trials. Outcome: Progressing Toward Goal OT treatment consisted of the following to work and progress towards the above goal(s): OT Evaluation and Treatment Time Self Care/Home Management (ADLs) Time Entry: 12 Neuromuscular Re-Education Time Entry: 12 Treating Therapist: Yahir Corley Additional Details: OT Co-Eval/Treatment Information Co-evaluation/co-treatment performed?: Yes, simultaneous billable skilled care was necessary due to medical complexity and functional deficits Other discipline: PT Rationale for need to co-eval/treat: cognitive issues, postural control Co-treatment goal focus: self-care, balance PPE used during patient interaction: facemask, gloves Patient location at end of session: bed with head of bed elevated Alarms on at end of session: bed alarm Needs in reach. Time In: 900 Time Out: 924 Total Visit Time: 24 minutes Upon discontinuation of Acute Care Occupational Therapy Services or patient discharge from the hospital this note represents the current Occupational Therapy Discharge Summary. Associated attestation - Desirae Quintero OT - 12/13/2023 2:01 PM EST I, Desirae Quintero OT, provided direct guidance in the room during this patient care session. I attest that all documentation reflects accurate skilled clinical decisions and judgements. NEUROVASCULAR STROKE SERVICE Daily Progress Note IDENTIFYING INFORMATION Aroldo Vargas MR# [id number] 12/13/2023 HISTORY OF PRESENT ILLNESS Aroldo Vargas is a 78 y.o. female with PMH significant for HTN, HLD, CAD, dementia, TIA who presented to an [facility] after family found her with L hemiplegia, L facial droop and slurred speech. Seen on tele, NIHSS 8. CTA showed R ICA occlusion. She was out of the window for IV thrombolytics. Transferred to [facility] for further management. LKW 2145 on 11/28. On arrival to [facility], NIHSS 16. CTH with evolving R MCA territory stroke. CTP with R MCA mismatch. mRS 2 at baseline. 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 INTERVAL HISTORY 11/30: Brain MRI pending. 12/05: Transfer out of [facility]. 12/06: Dobbhoff dislodged overnight, replaced, restrained. Consult ID for positive blood cultures, repeat cultures. Daughter updated at bedside. UE venous duplex. 12/07: atbx complete, NETBACKUP ADMINISTRATOR to re-eval, GI consulted for PEG planning 12/08: No overnight events. PEG likely early next week. 12/09: NAEON. 12/10: exam stable, discussed with GI, PEG tentative for tomorrow 12/11: PEG planned today. 12/12: PEG planned for today, vital signs stable. 12/13: GI unable to place PEG, consult gen surg. CT A/P pending. Exam and vitals stable. PHYSICAL EXAM Gen: NAD HEENT: normocephalic, no scalp lesions or tenderness Neck: trachea midline CV: +S1S2, RRR, no m/r/g Lungs: LCTA bilaterally with equal chest rise Abd: soft, nontender, nondistended, +BS x4 quadrants Extrem: Warm and well perfused Neuro: Opens eyes to speech, follows simple commands, incomprehensible speech CN II - Does not blink to threat on left CN II/III - PERRLA CN III/IV/ - Right gaze deviation CN V - CN VII - Left facial droop CN VIII - Hearing intact CN X - Cough present CN XI - Left shoulder weakness CN XII - MOTOR EXAMINATION: Left hemiplegia NIHSS 12/13/2023 Provider NIH Stroke Scale NIH Interval (Provider): daily NIH Level of Conciousness (Provider): 0 NIH LOC Questions (Provider): 2 NIH LOC Commands (Provider): 1 NIH Best Gaze (Provider): 1 NIH Visual (Provider): 2 NIH Facial Palsy (Provider): 2 NIH Left Arm Motor (Provider): 4 NIH Right Arm Motor (Provider): 0 NIH Left Leg Motor (Provider): 4 NIH Right Leg Motor (Provider): 2 NIH Limb Ataxia (Provider): 0 NIH Sensory (Provider): 2 NIH Best Language (Provider): 1 NIH Dysarthria (Provider): 1 NIH Extinction and Inattention (Provider): 1 NIH Total Score (Provider): 23 ASSESSMENT AND PLAN Neuro: Acute right hemispheric strokes, Right ICA/MCA occlusion s/p TICI 2b revascularization: CTH: Evolving R MCA territory stroke, no hemorrhage OSH CTA brain/neck: R ICA/M1 occlusion CTP: Large R MCA mismatch with small right basal ganglia stroke MRI brain Acute infarcts in the right RUBY and MCA territories with hemorrhagic transformation in the right basal ganglia and small IVH TTE: EF >70% EKG on admission: NSR, QTc 429 LDL 130 HgbA1c 5.3 Repeat CTA brain/neck: ICA now open but there is occlusion of right M1-M2 junction. -Stroke Etiology (TOAST Criteria): Cryptogenic -Antiplatelet plan: Aspirin 81 mg daily -Statin therapy: Lipitor 40 mg daily -Blood Pressure goal: SBP <220 -Mobile cardiac telemetry for 30 days at discharge Ischemic Stroke Core Measures -NIHSS on admission 16 -Patient has been started on Mechanical (SCD's) and Pharmacological (SQ heparin/Lovenox) DVT prophylaxis. -Antiplatelet therapy has been initiated, Aspirin 81mg daily. -Anticoagulation therapy was not indicated for this patient -Patients LDL 130 and HgbA1c 5.3 were checked and the patient will be discharged on Atorvastatin daily. -Dysphagia screening ordered, and will be completed prior to patient receiving oral intake. -Stroke education booklet has been ordered and will be provided by the RN that includes both written and verbal education to the patient and family regarding ischemic strokes. We have reviewed the patient's personal modifiable risk factors including: HTN, HLD as well as education on reducing these risk factors -Patient is being assessed for Rehab by PT/OT/Speech and PM&R if indicated. HTN, POA: Nicardipine stopped 12/04 -Continue lisinopril 40 mg daily -Carvedilol 12.5 mg every 12 hours Dysphagia: Seen by speech, last 12/05, recommend NPO -Tube feeds via Dobbhoff -Discussed PEG tube with daughter on 12/06 -GI consulted 12/07, PEG unsuccessful 12/12 -General surgery consulted, CT A/P pending for anatomy evaluation Likely Aspiration pneumonia: -completed 5 days ceftriaxone 2 gm daily on 12/07 Bacteremia: likely contaminant -Blood cultures from 12/02 and 12/04 show staphylococcus hominis in 1/2 sets -Consult ID: blood cultures likely contaminated, repeat blood cultures with no growth, signed off -Completed ceftriaxone 5 days as above Bilateral UE swelling: -BUE duplex negative for DVT, acute superficial thrombus in BUE Other problems: Complexity. Obesity Body mass index is 37.02 kg/m . - Follow with PCP for dietary and lifestyle modifications. Disposition: Aroldo Vargas will be discharged after PEG tube placed. Ryley Licea, ANGELO-COLLAR SETTER 12/13/2023 9:24 AM VITAL SIGNS Temp: [97.3 F (36.3 C)-98.7 F (37.1 C)] 97.3 F (36.3 C) Pulse (Heart Rate): [58-94] 65 Resp Rate: [17-23] 20 BP: (106-140)/(58-81) 134/63 O2 Sat (%): [95 %-99 %] 99 % Oxygen Therapy: Oxygen Therapy O2 Sat (%): 99 % O2 Device: room air Intake/Output: Intake/Output Summary (Last 24 hours) at 12/13/2023 0924 Last data filed at 12/13/2023 0400 Gross per 24 hour Intake 1134.64 ml Output 1200 ml Net -65.36 ml LABS/CULTURES Lab Results Component Value Date WBC 11.06 12/13/2023 HGB 11.0 (L) 12/13/2023 HCT 34.0 (L) 12/13/2023 PLATELET 288 12/13/2023 MCV 95.2 12/13/2023 Lab Results Component Value Date SODIUM 136 12/13/2023 POTASSIUM 4.5 12/13/2023 CHLORIDE 104 12/13/2023 CO2 24 12/13/2023 BUN 27 (H) 12/13/2023 CREATSERUM 0.51 12/13/2023 GLUCOSE 152 (H) 12/13/2023 Lab Results Component Value Date CHOLESTEROL 186 11/30/2023 TRIG 86 11/30/2023 HDL 39 (L) 11/30/2023 LDLCALC 130 (H) 11/30/2023 Lab Results Component Value Date HGBA1C 5.3 11/30/2023 Lab Results Component Value Date ALBUMIN 3.4 (L) 11/30/2023 , Lab Results Component Value Date CPK 82 11/29/2023 IMAGING/DIAGNOSTIC STUDIES XR ABDOMEN 1 VIEW PORTABLE Final Result IMPRESSION: Feeding tube with tip in the expected location of the pyloric region. If postpyloric position is desired further advancement is recommended. DUPLEX VENOUS EXTREMITY UPPER BILATERAL Final Result XR ABDOMEN 1 VIEW Final Result IMPRESSION: Interval retraction of the Dobbhoff tube with the tip in the distal stomach pointed superiorly into the left. If postpyloric positioning is needed, repositioning prior to advancement is recommended. ABDOMEN 1 VIEW PORTABLE Final Result IMPRESSION: Dobbhoff tube remains coiled in the stomach with the tip in proximal stomach body. Discussed with Joycelyn Lala RN at 2:48am on Dec 06, 2023. I personally viewed and interpreted these images and I have reviewed and approved this report. ABDOMEN 1 VIEW Final Result IMPRESSION: Dobbhoff tube is looped in the distal stomach with tip in the proximal stomach. Repositioning/advancement recommended. ABDOMEN 1 VIEW Final Result IMPRESSION: Dobbhoff tube tip in the distal stomach. CHEST 1 VIEW PORTABLE Final Result IMPRESSION: No radiographic evidence of acute cardiopulmonary abnormality. ANGIO BRAIN/NECK Final Result IMPRESSION: 1. 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 2. Interval occlusion at the M1-M2 junction beginning at the origin of the dominant inferior branch of the right middle cerebral artery which is associated with poor distal collateralization. HEAD WITHOUT CONTRAST Final Result IMPRESSION: Evolving infarcts in the right RUBY and MCA distribution with hemorrhagic transformation in the right basal ganglia with unchanged focal hematoma. Mildly mass effect with leftward shift of 4 mm. CHEST 1 VIEW PORTABLE Final Result IMPRESSION: New bibasilar atelectasis status post placement of partially visualized feeding tube. HEAD WITHOUT CONTRAST Final Result IMPRESSION: Evolving infarcts in the right RUBY and MCA distribution with petechial hemorrhagic transformation in the right basal ganglia with unchanged focal hematoma. Mildly progressed mass effect with leftward shift of 4 mm. ABDOMEN 1 VIEW Final Result IMPRESSION: Dobbhoff tube with tip projecting over the pyloroduodenal region. Consider advancement to confirm postpyloric position. BRAIN WITHOUT CONTRAST Final Result IMPRESSION: Acute infarcts in the right RUBY and MCA territories with hemorrhagic transformation in the right basal ganglia and small volume intraventricular hemorrhage. Mass effect with mild leftward shift of 2 mm. HEAD WITHOUT CONTRAST Final Result IMPRESSION: No interval change in acute infarcts in the right RUBY and MCA distribution with a 1.4 cm hematoma in the right basal ganglia as confirmed on dual-energy CT. Similar mass effect and leftward shift of 3 mm. HEAD WITHOUT CONTRAST Final Result IMPRESSION: Evolving infarct involving a large portion of the right MCA vascular territory as described above, increased in extent in comparison to prior head CT. Hyperdensities involving the right basal ganglia likely represent a combination of hemorrhage and contrast staining. A more focal and hyperdense component involving the right globus pallidus is favored to represent hematoma. Further characterization and distinction of hemorrhage/contrast could be obtained with a dual energy CT if clinically indicated. The suspected hemorrhagic component is new in comparison to previous head CT from November 29, 2023. There is associated mass effect with effacement of the right lateral ventricle but minimal leftward midline shift at this point in time. Findings communicated to Dr. Powers on 11/30/2023 at 10:55 AM. 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 There is distal reconstitution of several right middle cerebral artery branches, likely related to collateral flow. Occlusion of the right M1 segment with distal reconstitution, as above. Short segment of occlusion of the proximal right A1 segment. Remainder of the anterior cerebral arteries are patent, without significant stenosis. CARDIOGRAM Final Result XR ABDOMEN 1 VIEW PORTABLE Final Result FINDINGS/IMPRESSION: Tubes: Feeding tube tip is just entering the duodenum. The lower pelvis was excluded. Normal bowel gas pattern. No definite pneumoperitoneum. ABDOMEN 1 VIEW PORTABLE Final Result IMPRESSION: Feeding tube with tip in the proximal stomach. If postpyloric position is desired further advancement is recommended. SPINE CERVICAL WITHOUT CONTRAST Final Result IMPRESSION: 1. No acute fracture or traumatic malalignment. 2. Degenerative changes as above. I personally viewed and interpreted these images and I have reviewed and approved this report. CEREBRAL PERFUSION ANALYSIS Final Result IMPRESSION: Large perfusion defect involving the right MCA and reticular striate territories. Completed infarct core in the basal ganglia with large volume of ischemic penumbra. STROKE HEAD-STROKE ALERT ONLY Final Result IMPRESSION: Acute nonhemorrhagic infarct in the right basal ganglia lenticulostriate distribution. No significant intracranial mass effect. Findings were discussed with Ryley Licea at 3:06 PM on November 29, 2023. I personally viewed and interpreted these images and I have reviewed and approved this report. RO IMAGING FOR NEURO ENDOVASCULAR (Results Pending) CT ABDOMEN/PELVIS WITH CONTRAST (Results Pending) MEDICATIONS aspirin 81 mg Per NG tube Daily Atorvastatin 40 mg Per NG tube QHS carveDILOL 12.5 mg Per NG tube Q12HNS enoxaparin 40 mg Subcutaneous Daily Iohexol (OMNIPAQUE) 300 MG/ML 50 mL in Water po liquid (free water) 950 mL 15,000 mg Oral Once lidocaine 2 patch Transdermal Q24H Lisinopril 40 mg Per NG tube Daily Polyethylene glycol 17 g Per NG tube Q12H Senna 17.2 mg Per NG tube Q12H Stroke Attending Addendum (Date of service 12/12/23): I have interviewed and examined patient. I have reviewed Antoni Chakraborty CNP's note and agree with the following highlights, additions, and addendums: The patient is a 78 y.o. female with a history of hypertension, hyperlipidemia, and prior TIA who on 11/28/232144 was LKN and then developed symptoms of left hemiparesis. Patient was taken to [facility] where Telestroke showed an NIHSS of 8. CT brain was negative for acute changes. OSH CT angiogram head/neck showed right carotidT/[id number]. The patient did not receive IVtPA. Patient transferred to [facility] ER and initial NIHSS on arrival was 16. CT brain showed right MCA infarct. CT perfusion brain shows right MM (25/120mL). Baseline mRS-2. The patient was taken for intra-arterial therapy and had TICI 2b recanalization or right carotid T occlusion. The patient was transferred to [facility]. MRI brain diffusion weighted images shows acute right RUBY/MCA infarcts. LDL 130, HgbA1c 5.3. TTE EF >70%. BCx + Staph hominis 1/2, ID consult felt contaminant, repeat BCx negative. PNA- completed course of CTX. Interval Overnight History: 115/56. Neurological examination shows left hemiparesis and neglect, NIHSS 20 (?-2, EOMI-2, LF-2, LUE-4, LLE-4, RLE-3, negl-2, dys-1). Assessment/Plan: Acute right MCA ischemic stroke, right carotid T occlusion s/p intra-arterial therapy with TICI 2b recanalization Post-stroke day # 14. Stroke work-up completed. Continue daily anti-platelet medication (Asa) and vascular risk factor modification. On lipitor 40. On coreg, lisinopril. DVT prophylaxis with SCDs and lovenox SQ. PT/OT consults-SNF after PEG. EM on discharge. NPO- dobhoff for tube feeds. GI consulted- PEG today. Skip Mcfarland MD Placement Plan Expected Discharge Date: 12/15/2023 Referred Level of Care: SNF Barriers: Choice, pre-cert, medical readiness, transportation. Current Referrals and Status [place], [facility] Available 2. [facility] Available 3. [facility] Available 4. [facility] Available 5. [facility] Available 6. [facility] Under Review 7. [facility] Under Review 8. [facility] Sent 9. [facility] Unavailable 10. [facility] Unavailable 11. [facility] Unavailable 12. [facility] Unavailable 13. [facility] Unavailable SONNY spoke with daughter Dina by phone to review choice list. SONNY emailed choice list and SW contact information to Dina. Patient will require pre-cert. ANTONIO Valero, WOOD GRAINER Transportation Engineering Technician Available by Secure Chat Speech Language Pathology Attempt Note 12/12/2023 NETBACKUP ADMINISTRATOR Therapy Completed: Attempted Attempted Reason: Patient is NPO for test/procedure (PEG scheduled for this date) AMADO Solis Time In: 0800 Time Out: 0800 Total Visit Time: 0 minutes Total Treatment Time (skilled, billable minutes): 0 minutes NEUROVASCULAR STROKE SERVICE Daily Progress Note IDENTIFYING INFORMATION Aroldo Vargas MR# [id number] 12/12/2023 HISTORY OF PRESENT ILLNESS Aroldo Vargas is a 78 y.o. female with PMH significant for HTN, HLD, CAD, dementia, TIA who presented to an [facility] after family found her with L hemiplegia, L facial droop and slurred speech. Seen on tele, NIHSS 8. CTA showed R ICA occlusion. She was out of the window for IV thrombolytics. Transferred to [facility] for further management. LKW 2145 on 11/28. On arrival to [facility], NIHSS 16. CTH with evolving R MCA territory stroke. CTP with R MCA mismatch. mRS 2 at baseline. 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 INTERVAL HISTORY 11/30: Brain MRI pending. 12/05: Transfer out of [facility]. 12/06: Dobbhoff dislodged overnight, replaced, restrained. Consult ID for positive blood cultures, repeat cultures. Daughter updated at bedside. UE venous duplex. 12/07: atbx complete, NETBACKUP ADMINISTRATOR to re-eval, GI consulted for PEG planning 12/08: No overnight events. PEG likely early next week. 12/09: NAEON. 12/10: exam stable, discussed with GI, PEG tentative for tomorrow 12/11: PEG planned today. 12/12: PEG planned for today, vital signs stable. PHYSICAL EXAM Gen: NAD HEENT: normocephalic, no scalp lesions or tenderness Neck: trachea midline CV: +S1S2, RRR, no m/r/g Lungs: LCTA bilaterally with equal chest rise Abd: soft, nontender, nondistended, +BS x4 quadrants Extrem: Warm and well perfused Neuro: Opens eyes to speech, follows simple commands, incomprehensible speech CN II - Does not blink to threat on left CN II/III - PERRLA CN III/IV/ - Right gaze deviation CN V - CN VII - Left facial droop CN VIII - Hearing intact CN X - Cough present CN XI - Left shoulder weakness CN XII - MOTOR EXAMINATION: Left hemiplegia NIHSS 12/12/2023 Provider NIH Stroke Scale NIH Interval (Provider): daily NIH Level of Conciousness (Provider): 0 NIH LOC Questions (Provider): 2 NIH LOC Commands (Provider): 1 NIH Best Gaze (Provider): 1 NIH Visual (Provider): 2 NIH Facial Palsy (Provider): 2 NIH Left Arm Motor (Provider): 4 NIH Right Arm Motor (Provider): 1 NIH Left Leg Motor (Provider): 4 NIH Right Leg Motor (Provider): 3 NIH Limb Ataxia (Provider): 0 NIH Sensory (Provider): 2 NIH Best Language (Provider): 1 NIH Dysarthria (Provider): 1 NIH Extinction and Inattention (Provider): 1 NIH Total Score (Provider): 25 ASSESSMENT AND PLAN Neuro: Acute right hemispheric strokes, Right ICA/MCA occlusion s/p TICI 2b revascularization: CTH: Evolving R MCA territory stroke, no hemorrhage OSH CTA brain/neck: R ICA/M1 occlusion CTP: Large R MCA mismatch with small right basal ganglia stroke MRI brain Acute infarcts in the right RUBY and MCA territories with hemorrhagic transformation in the right basal ganglia and small IVH TTE: EF >70% EKG on admission: NSR, QTc 429 LDL 130 HgbA1c 5.3 Repeat CTA brain/neck: ICA now open but there is occlusion of right M1-M2 junction. -Stroke Etiology (TOAST Criteria): Cryptogenic -Antiplatelet plan: Aspirin 81 mg daily -Statin therapy: Lipitor 40 mg daily -Blood Pressure goal: SBP <220 -Mobile cardiac telemetry for 30 days at discharge Ischemic Stroke Core Measures -NIHSS on admission 16 -Patient has been started on Mechanical (SCD's) and Pharmacological (SQ heparin/Lovenox) DVT prophylaxis. -Antiplatelet therapy has been initiated, Aspirin 81mg daily. -Anticoagulation therapy was not indicated for this patient -Patients LDL 130 and HgbA1c 5.3 were checked and the patient will be discharged on Atorvastatin daily. -Dysphagia screening ordered, and will be completed prior to patient receiving oral intake. -Stroke education booklet has been ordered and will be provided by the RN that includes both written and verbal education to the patient and family regarding ischemic strokes. We have reviewed the patient's personal modifiable risk factors including: HTN, HLD as well as education on reducing these risk factors -Patient is being assessed for Rehab by PT/OT/Speech and PM&R if indicated. HTN, POA: Nicardipine stopped 12/04 -Continue lisinopril 40 mg daily -Carvedilol 12.5 mg every 12 hours Dysphagia: Seen by speech, last 12/05, recommend NPO -Tube feeds via Dobbhoff -Discussed PEG tube with daughter on 12/06 -GI consulted 12/07, PEG planned today Likely Aspiration pneumonia: -completed 5 days ceftriaxone 2 gm daily on 12/07 Bacteremia: likely contaminant -Blood cultures from 12/02 and 12/04 show staphylococcus hominis in 1/2 sets -Consult ID: blood cultures likely contaminated, repeat blood cultures with no growth, signed off -Completed ceftriaxone 5 days as above Bilateral UE swelling: -BUE duplex negative for DVT, acute superficial thrombus in BUE Other problems: Complexity. Obesity Body mass index is 37.02 kg/m . - Follow with PCP for dietary and lifestyle modifications. Disposition: Aroldo Vargas will be discharged after PEG tube placed. Haris Chakraborty APRN-COLLAR SETTER 12/12/2023 10:32 AM VITAL SIGNS Temp: [97.2 F (36.2 C)-98.6 F (37 C)] 97.8 F (36.6 C) Pulse (Heart Rate): [60-76] 60 Resp Rate: [18-24] 20 BP: (109-161)/(56-74) 115/56 O2 Sat (%): [94 %-96 %] 96 % Oxygen Therapy: Oxygen Therapy O2 Sat (%): 96 % Intake/Output: Intake/Output Summary (Last 24 hours) at 12/12/2023 1032 Last data filed at 12/12/2023 0842 Gross per 24 hour Intake 1960.14 ml Output 950 ml Net 1010.14 ml LABS/CULTURES Lab Results Component Value Date WBC 14.90 (H) 12/12/2023 HGB 9.6 (L) 12/12/2023 HCT 30.2 (L) 12/12/2023 PLATELET 454 (H) 12/12/2023 MCV 97.1 12/12/2023 Lab Results Component Value Date SODIUM 137 12/12/2023 POTASSIUM 4.7 12/12/2023 CHLORIDE 105 12/12/2023 CO2 27 12/12/2023 BUN 33 (H) 12/12/2023 CREATSERUM 0.66 12/12/2023 GLUCOSE 156 (H) 12/12/2023 Lab Results Component Value Date CHOLESTEROL 186 11/30/2023 TRIG 86 11/30/2023 HDL 39 (L) 11/30/2023 LDLCALC 130 (H) 11/30/2023 Lab Results Component Value Date HGBA1C 5.3 11/30/2023 Lab Results Component Value Date ALBUMIN 3.4 (L) 11/30/2023 , Lab Results Component Value Date CPK 82 11/29/2023 IMAGING/DIAGNOSTIC STUDIES VASC DUPLEX VENOUS EXTREMITY UPPER BILATERAL Final Result XR ABDOMEN 1 VIEW Final Result IMPRESSION: Interval retraction of the Dobbhoff tube with the tip in the distal stomach pointed superiorly into the left. If postpyloric positioning is needed, repositioning prior to advancement is recommended. ABDOMEN 1 VIEW PORTABLE Final Result IMPRESSION: Dobbhoff tube remains coiled in the stomach with the tip in proximal stomach body. Discussed with Joycelyn Lala RN at 2:48am on Dec 06, 2023. I personally viewed and interpreted these images and I have reviewed and approved this report. ABDOMEN 1 VIEW Final Result IMPRESSION: Dobbhoff tube is looped in the distal stomach with tip in the proximal stomach. Repositioning/advancement recommended. ABDOMEN 1 VIEW Final Result IMPRESSION: Dobbhoff tube tip in the distal stomach. CHEST 1 VIEW PORTABLE Final Result IMPRESSION: No radiographic evidence of acute cardiopulmonary abnormality. ANGIO BRAIN/NECK Final Result IMPRESSION: 1. 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 2. Interval occlusion at the M1-M2 junction beginning at the origin of the dominant inferior branch of the right middle cerebral artery which is associated with poor distal collateralization. HEAD WITHOUT CONTRAST Final Result IMPRESSION: Evolving infarcts in the right RUBY and MCA distribution with hemorrhagic transformation in the right basal ganglia with unchanged focal hematoma. Mildly mass effect with leftward shift of 4 mm. CHEST 1 VIEW PORTABLE Final Result IMPRESSION: New bibasilar atelectasis status post placement of partially visualized feeding tube. HEAD WITHOUT CONTRAST Final Result IMPRESSION: Evolving infarcts in the right RUBY and MCA distribution with petechial hemorrhagic transformation in the right basal ganglia with unchanged focal hematoma. Mildly progressed mass effect with leftward shift of 4 mm. ABDOMEN 1 VIEW Final Result IMPRESSION: Dobbhoff tube with tip projecting over the pyloroduodenal region. Consider advancement to confirm postpyloric position. BRAIN WITHOUT CONTRAST Final Result IMPRESSION: Acute infarcts in the right RUBY and MCA territories with hemorrhagic transformation in the right basal ganglia and small volume intraventricular hemorrhage. Mass effect with mild leftward shift of 2 mm. HEAD WITHOUT CONTRAST Final Result IMPRESSION: No interval change in acute infarcts in the right RUBY and MCA distribution with a 1.4 cm hematoma in the right basal ganglia as confirmed on dual-energy CT. Similar mass effect and leftward shift of 3 mm. HEAD WITHOUT CONTRAST Final Result IMPRESSION: Evolving infarct involving a large portion of the right MCA vascular territory as described above, increased in extent in comparison to prior head CT. Hyperdensities involving the right basal ganglia likely represent a combination of hemorrhage and contrast staining. A more focal and hyperdense component involving the right globus pallidus is favored to represent hematoma. Further characterization and distinction of hemorrhage/contrast could be obtained with a dual energy CT if clinically indicated. The suspected hemorrhagic component is new in comparison to previous head CT from November 29, 2023. There is associated mass effect with effacement of the right lateral ventricle but minimal leftward midline shift at this point in time. Findings communicated to Dr. Powers on 11/30/2023 at 10:55 AM. 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 There is distal reconstitution of several right middle cerebral artery branches, likely related to collateral flow. Occlusion of the right M1 segment with distal reconstitution, as above. Short segment of occlusion of the proximal right A1 segment. Remainder of the anterior cerebral arteries are patent, without significant stenosis. CARDIOGRAM Final Result XR ABDOMEN 1 VIEW PORTABLE Final Result FINDINGS/IMPRESSION: Tubes: Feeding tube tip is just entering the duodenum. The lower pelvis was excluded. Normal bowel gas pattern. No definite pneumoperitoneum. ABDOMEN 1 VIEW PORTABLE Final Result IMPRESSION: Feeding tube with tip in the proximal stomach. If postpyloric position is desired further advancement is recommended. SPINE CERVICAL WITHOUT CONTRAST Final Result IMPRESSION: 1. No acute fracture or traumatic malalignment. 2. Degenerative changes as above. I personally viewed and interpreted these images and I have reviewed and approved this report. CEREBRAL PERFUSION ANALYSIS Final Result IMPRESSION: Large perfusion defect involving the right MCA and reticular striate territories. Completed infarct core in the basal ganglia with large volume of ischemic penumbra. STROKE HEAD-STROKE ALERT ONLY Final Result IMPRESSION: Acute nonhemorrhagic infarct in the right basal ganglia lenticulostriate distribution. No significant intracranial mass effect. Findings were discussed with Ryley Licea at 3:06 PM on November 29, 2023. I personally viewed and interpreted these images and I have reviewed and approved this report. [facility] FOR NEURO ENDOVASCULAR (Results Pending) MEDICATIONS aspirin 81 mg Per NG tube Daily Atorvastatin 40 mg Per NG tube QHS carveDILOL 12.5 mg Per NG tube Q12HNS [Held by provider] enoxaparin 40 mg Subcutaneous Daily lidocaine 2 patch Transdermal Q24H Lisinopril 40 mg Per NG tube Daily Polyethylene glycol 17 g Per NG tube Q12H Senna 17.2 mg Per NG tube Q12H Stroke Attending Addendum (Date of service 12/11/23): I have interviewed and examined patient. I have reviewed Antoni Chakraborty CNP's note and agree with the following highlights, additions, and addendums: The patient is a 78 y.o. female with a history of hypertension, hyperlipidemia, and prior TIA who on 11/28/232144 was LKN and then developed symptoms of left hemiparesis. Patient was taken to [facility] where Telestroke showed an NIHSS of 8. CT brain was negative for acute changes. OSH CT angiogram head/neck showed right carotidT/[id number]. The patient did not receive IVtPA. Patient transferred to [facility] ER and initial NIHSS on arrival was 16. CT brain showed right MCA infarct. CT perfusion brain shows right MM (25/120mL). Baseline mRS-2. The patient was taken for intra-arterial therapy and had TICI 2b recanalization or right carotid T occlusion. The patient was transferred to [facility]. MRI brain diffusion weighted images shows acute right RUBY/MCA infarcts. LDL 130, HgbA1c 5.3. TTE EF >70%. BCx + Staph hominis 1/2, ID consult felt contaminant, repeat BCx negative. PNA- completed course of CTX. Interval Overnight History: 147/73. Neurological examination shows left hemiparesis and neglect, NIHSS 17 (?-2, EOMI-2, LF-2, LUE-4, LLE-4, negl-2, dys-1). Assessment/Plan: Acute right MCA ischemic stroke, right carotid T occlusion s/p intra-arterial therapy with TICI 2b recanalization Post-stroke day # 13. Stroke work-up completed. Continue daily anti-platelet medication (Asa) and vascular risk factor modification. On lipitor 40. On coreg, lisinopril. DVT prophylaxis with SCDs and lovenox SQ. PT/OT consults-SNF, precert. EM on discharge. NPO- dobhoff for TF. GI consulted- PEG today. Skip Mcfarland MD Acute Physical Therapy Treatment Prior to Admission [facility] score(s): PRIOR LEVEL AM-PAC Activity Raw Score: 24 Current AM-PAC score(s): CURRENT AM-PAC Mobility Raw Score: 6 Based on the above AM-PAC score(s) and PT clinical judgment, patient is a good candidate for discharge to [facility] Facility Barriers to discharge home: Patient needs assistance with functional mobility Mobility equipment available at home: 2 wheeled walker, none used ADL equipment available at home: Equipment needed for discharge: to be determined Current therapy frequency recommendation in acute: Therapy Frequency: 5 times a week Activity Recommendations for outside of rehab session: jenni lift Precautions and Weightbearing Status: Existing Precautions/Restrictions: fall Tube feed, Telemetry Patient Safety Communication Prior to Visit: Nursing Subjective: states name an birthday Pain: General Pain Documentation (Adult, OB, Peds) Presence of Pain: not present: non-verbal indicator of pain/discomfort Presence of Pain Score (Auto-calculated): 0 Objective/Observation: Vitals/Vitals Responses to Treatment: stable on pulse oxymetry and telemetry throughout Cognition Overall Cognitive Status: Impaired Arousal/Alertness: Inconsistent responses to stimuli Orientation Level: (name and birthday) Following Commands: Follows commands 25-50% of the time, Follows one step commands with repetition Extremity Assessments: See PT Evaluation flowsheet for Extremity Measurement updates. Skin and Edema: Balance: Sitting Balance Static Sitting-Level of Assistance: Maximum assistance Dynamic Sitting-Level of Assistance: Dependent EOB worked on midline and upright balance with assist for RUE placement, RUE locating LUE and safe handling/positioning edu, passive neck stretching d/t rotation and preference to rt, reaching with RUE, PROM to LLE to end range tolerated Mobility Assessment/Intervention: Rolling/Turning Mobility [place] Level: Rolling/Turning: dependent (less than 25% patient effort) Physical Assist: Rolling/Turnin person assist Bed Features/Set-up: Rolling/Turning: Head of bed elevated Scooting Bridging Mobility [place] Level: Scooting/Bridging: dependent (less than 25% patient effort) Physical Assist: Scooting/Bridgin person assist Bed Features/Set-up: Scooting/Bridging: Flat Supine to Sit Mobility [place] Level: Supine->Sit: dependent (less than 25% patient effort) Physical Assist: Supine->Sit: 2 person assist Bed Features/Set-up: Supine->Sit: Head of bed elevated Sit to Supine Mobility [place] Level: Sit->Supine: dependent (less than 25% patient effort) Physical Assist: Sit->Supine: 2 person assist Bed Features/Set-up: Sit->Supine: Flat Supine to sit with assist as noted above Cues for logroll; crossing midline to rail with UE; sequencing LE Transfer Assessment/Intervention: Sit to Stand Transfer [place] Level: Sit->Stand: unable to assess Physical Assist: Sit->Stand: 2 person assist Gait/Functional Mobility Assessment/Intervention: Stairs Assessment/Intervention: Outcome Score(s): CURRENT AM-[facility] Basic Mobility Inpatient Short Form Turning over in bed: 1 - Total Assistance Sitting/standing from chair: 1 - Total Assistance Moving from lying on back to sittin - Total Assistance Moving to and from bed to chair: 1 - Total Assistance Walk in hospital room: 1 - Total Assistance Climbing 3-5 steps with a railin - Total Assistance CURRENT AM-[facility] Mobility Raw Score: 6 CURRENT AM-[facility] Mobility Functional Limitation/Modifier: 100.00% Currently Impaired in Basic Mobility Currently Impaired in Basic Mobility - CN Interventions: Assessment & Plan: gregorio EOB with mod-depA balance, no active movement lt extremities; inattention to lt Patient Instruction/Education this session: ROM, pressure relief Plan for next session: EOB balance Acute PT Goals Plan of Care by Mirna Jiang PT at 12/11/2023 10:45 AM Version 1 of 1 Problem: PT - General Goals Goal: Supine <-> Sit Transfers - Patient will perform supine to/from sit transfers with minimal assistance and of 2 people and with use of hospital bed features in order to improve functional mobility and safety. Outcome: Ongoing Goal: Strength - Patient will demonstrate understanding of exercise program. Outcome: Ongoing PT treatment consisted of the following to progress towards the above goal(s): PT Evaluation and Treatment Time Therapeutic Activity Time Entry: 14 Neuromuscular Re-Education Time Entry: 10 Treating Therapist: Mirna Jiang PT Additional Details: PT Co-Eval/Treatment Information Co-evaluation/co-treatment performed?: Yes, simultaneous billable skilled care was necessary due to medical complexity and functional deficits Other discipline: OT Rationale for need to co-eval/treat: cognitive issues, coordination issues, postural control, alertness/arousal Co-treatment goal focus: balance, mobility, transfer, endurance, coordination, strength PPE used during patient interaction: facemask, gloves Patient location at end of session: bed with head of bed elevated, RN aware Alarms on at end of session: bed alarm, RN aware Needs in reach. Time In: 954 Time Out: 1019 Total Visit Time: 24 minutes Total Treatment Time (skilled, billable minutes): 24 minutes Upon discontinuation of Acute Care Physical Therapy Services or patient discharge from the hospital this note represents the current Physical Therapy Discharge Summary. Placement Plan Expected Discharge Date: 12/13/2023 Referred Level of Care: SNF Barriers: Choice, pre-cert, medical readiness, transportation. Current Referrals and Status [facility] Available 2. [facility] Available 3. [facility] Under Review 4. [facility] Under Review [facility]. [facility] 7. [facility] Sent 8. [facility] - Sent 9. [facility] - Sent 10. [facility] Under Review 11. [facility] Unavailable 12. [facility] Unavailable 13. [facility] Unavailable SW spoke with SANDRA son Jaylen by phone to discuss choice list. Preference is [facility] which has a bed available but requested therapy to re-evaluate patient. Jaylen requested SW send additional referrals in the [facility] area near his sister while waiting for [facility] to determine acceptance. ANTONIO Valero, WOOD GRAINER Transportation Engineering Technician Available by Secure Chat Acute Occupational Therapy Treatment Prior to Admission AM-PAC Score: PRIOR LEVEL AM-PAC Activity Raw Score: 24 Current AM-PAC score(s): CURRENT AM-PAC Activity Raw Score: 7 Based on the above AM-PAC score(s), and OT clinical judgment, discharge destination recommendation is: [facility] Facility Barriers to discharge home: Patient needs assistance with ADLs, Patient needs assistance with IADLs (see note below), Cognitive impairments that impact safety (see note below) Mobility equipment available at home: 2 wheeled walker, none used ADL equipment available at home: Equipment recommendations for discharge: to be determined Current therapy frequency recommendation(s) in acute: 5 times a week Precautions and Weightbearing Status: OT Existing Precautions/Restrictions: fall Telemetry, Tube feed Patient Safety Communication Prior to Visit: Nursing Subjective: Pt lethargic, limited verbalizations Pain: General Pain Documentation (Adult, OB, Peds) Presence of Pain: not present: non-verbal indicator of pain/discomfort Presence of Pain Score (Auto-calculated): 0 Objective/Observation: Vitals/Vitals Responses to Treatment: VSS Cognition Overall Cognitive Status: Impaired Arousal/Alertness: Inconsistent responses to stimuli Orientation Level: Oriented to person (name and birthday, hosp with increased time and choices) Following Commands: Follows commands 25-50% of the time Safety Judgment: Decreased awareness of need for safety, Decreased awareness of need for assistance Awareness of Errors: Decreased awareness of errors Deficits: Not aware of deficits Attention Span: Difficulty attending to directions Cognition Comments: flat affect, right gaze preference and head turn ADL Assessment/Intervention: ADLs: Eating Assistance: Grooming Assistance: Moderate Grooming Location: edge of bed Grooming Deficit: Activity tolerance, Generalized weakness, Balance, Wash/dry face, Brushing hair Grooming Skilled Rationale (Verbal/Tactile/Visual/Demonstration): Setup, Supervision, Facilitate positioning Grooming Intervention/Details: dep A for sitting balance, cues for attention to left side Bathing Assistance: UE Dressing Assistance: LE Dressing Assistance: Toilet Assistance: Extremity Assessments: See OT Evaluation flowsheet for Extremity Measurement updates. Balance: Sitting Balance Static Sitting-Level of Assistance: Maximum assistance Dynamic Sitting-Level of Assistance: Dependent Skilled Rationale: Verbal cues, Tactile cues, Positioning, Full extension to upright positioning/posture, Finding/maintaining midline positioning Sitting Balance Skilled Intervention/Details: Pt sat EOB approx 12-15 min with max to dep A for sitting balance with intermittent pushing through right towards left and cues for upright and midline positioning. right gaze preference. challenged throughout for midline posture with limited ability to correct and for visual scanning to left. Improved visual scanning with eyes but tight in cervical rotation and provided passive stretch to cervical rotation x3 with prolonged stretch to promote increased awareness of left side. Functional reaching for ADL objects x3 with limited shoulder range on right and cues for visual attention Skin and Edema: Mobility Assessment/Intervention: Rolling/Turning Mobility [place] Level: Rolling/Turning: dependent (less than 25% patient effort) Physical Assist: Rolling/Turnin person assist Bed Features/Set-up: Rolling/Turning: Head of bed elevated Skilled Rationale: Verbal cues Scooting Bridging Mobility [place] Level: Scooting/Bridging: dependent (less than 25% patient effort) Physical Assist: Scooting/Bridgin person assist Bed Features/Set-up: Scooting/Bridging: Flat Skilled Rationale: Verbal cues Skilled Intervention/Details: Scooting/Bridging: boost in bed Supine to Sit Mobility [place] Level: Supine->Sit: dependent (less than 25% patient effort) Physical Assist: Supine->Sit: 2 person assist Bed Features/Set-up: Supine->Sit: Head of bed elevated Skilled Rationale: Verbal cues Skilled Intervention/Details: Supine->Sit: no initiation despite cues Sit to Supine Mobility [place] Level: Sit->Supine: dependent (less than 25% patient effort) Physical Assist: Sit->Supine: 2 person assist Bed Features/Set-up: Sit->Supine: Flat Skilled Rationale: Verbal cues Transfer Assessment/Intervention: Functional Mobility: Outcome Score(s): CURRENT [facility] Daily Activity Inpatient Short Form Putting on/Taking Off Lower Body Clothin - Total Assistance Bathin - Total Assistance Toiletin - Total Assistance Putting on/Taking Off Upper Body Clothin - Total Assistance Groomin - A Lot of Assistance Eatin - Total Assistance CURRENT [facility] Activity Raw Score: 7 CURRENT [facility] Activity Functional Limitation/Modifier: 92.44% Currently Impaired in Daily Activity - CM Interventions: Assessment & Plan: Pt demonstrates increased visual scanning to left from previous session and is making fair progress towards goals. Pt continues to present with deficits in balance, cognition, strength and requires 1-2 person assist for ADLs and functional transfer and mobility tasks. Pt requires continued skilled OT services to address functional deficits and maximize safety and independence in ADLs for return home safely. Patient Instruction/Education this session: progression of treatment, cues for sitting balance and posture, orientation, visual scanning Plan for next session: increased EOB sitting balance, visual scanning left Acute OT Goals Plan of Care by Desirae Quintero OT at 12/11/2023 10:20 AM Version 1 of 1 Problem: OT - ADLs Goal: Grooming - Patient will complete grooming edge of bed with minimal assistance for improved ability to safely complete ADLs. Outcome: Ongoing Problem: OT - Transfers Goal: Transfers Supine -> Sit - Patient will perform supine to/from sit with flat bed & no rail and maximal assistance to improve participation in ADLs. Outcome: Ongoing Problem: OT - Balance Goal: Balance - Seated - Patient will perform 15 minutes of functional task in sitting with moderate assistance and fair balance to promote safety during self-care activities. Outcome: Ongoing Problem: OT - Cognition Goal: Cognition Simple ADL - Patient will demonstrate improved cognition, completing simple ADL task for 10 minutes with no greater than min cues required to maintain attention. Outcome: Ongoing Problem: OT - Vision Goal: Visual Tracking - Patient will track past midline to left during session with no greater than mod cues to attend to familiar object/person for ADL participation in 5/5 trials. Outcome: Progressing Toward Goal OT treatment consisted of the following to work and progress towards the above goal(s): OT Evaluation and Treatment Time Self Care/Home Management (ADLs) Time Entry: 15 Neuromuscular Re-Education Time Entry: 11 Treating Therapist: Desirae Quintero OT Additional Details: OT Co-Eval/Treatment Information Co-evaluation/co-treatment performed?: Yes, simultaneous billable skilled care was necessary due to medical complexity and functional deficits Other discipline: PT Rationale for need to co-eval/treat: cognitive issues, postural control Co-treatment goal focus: self-care PPE used during patient interaction: facemask, gloves Patient location at end of session: bed with head of bed elevated Alarms on at end of session: bed alarm Needs in reach. Time In: 953 Time Out: 1020 Total Visit Time: 26 minutes Total Treatment Time (skilled, billable minutes): 26 minutes Upon discontinuation of Acute Care Occupational Therapy Services or patient discharge from the hospital this note represents the current Occupational Therapy Discharge Summary. NEUROVASCULAR STROKE SERVICE Daily Progress Note IDENTIFYING INFORMATION Aroldo Vargas MR# [id number] 12/11/2023 HISTORY OF PRESENT ILLNESS Aroldo Vargas is a 78 y.o. female with PMH significant for HTN, HLD, CAD, dementia, TIA who presented to an [facility] after family found her with L hemiplegia, L facial droop and slurred speech. Seen on tele, NIHSS 8. CTA showed R ICA occlusion. She was out of the window for IV thrombolytics. Transferred to [facility] for further management. LKW 2145 on 11/28. On arrival to [facility], NIHSS 16. CTH with evolving R MCA territory stroke. CTP with R MCA mismatch. mRS 2 at baseline. 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 INTERVAL HISTORY 11/30: Brain MRI pending. 12/05: Transfer out of [facility]. 12/06: Dobbhoff dislodged overnight, replaced, restrained. Consult ID for positive blood cultures, repeat cultures. Daughter updated at bedside. UE venous duplex. 12/07: atbx complete, NETBACKUP ADMINISTRATOR to re-eval, GI consulted for PEG planning 12/08: No overnight events. PEG likely early next week. 12/09: NAEON. 12/10: exam stable, discussed with GI PEG tentative for tomorrow 12/11: PEG planned today. PHYSICAL EXAM Gen: somnolent, NAD HEENT: normocephalic, no scalp lesions or tenderness Neck: trachea midline CV: +S1S2, RRR, no m/r/g Lungs: LCTA bilaterally with equal chest rise Abd: soft, nontender, nondistended, +BS x4 quadrants Extrem: Warm and well perfused, bilateral arms red and swollen Neuro: Opens eyes to speech, follows simple commands, incomprehensible speech CN II - Does not blink to threat on left CN II/III - PERRLA CN III/IV/ - Right gaze deviation CN V - CN VII - Left facial droop CN VIII - Hearing intact CN X - Cough present CN XI - Left shoulder weakness CN XII - MOTOR EXAMINATION: Left hemiplegia NIHSS 12/11/2023 Provider NIH Stroke Scale NIH Interval (Provider): daily NIH Level of Conciousness (Provider): 0 NIH LOC Questions (Provider): 2 NIH LOC Commands (Provider): 0 NIH Best Gaze (Provider): 1 NIH Visual (Provider): 2 NIH Facial Palsy (Provider): 2 NIH Left Arm Motor (Provider): 4 NIH Right Arm Motor (Provider): 0 NIH Left Leg Motor (Provider): 4 NIH Right Leg Motor (Provider): 2 NIH Limb Ataxia (Provider): 0 NIH Sensory (Provider): 2 NIH Best Language (Provider): 1 NIH Dysarthria (Provider): 1 NIH Extinction and Inattention (Provider): 1 NIH Total Score (Provider): 22 ASSESSMENT AND PLAN Neuro: Acute right hemispheric strokes, Right ICA/MCA occlusion s/p TICI 2b revascularization: CTH: Evolving R MCA territory stroke, no hemorrhage OSH CTA brain/neck: R ICA/M1 occlusion CTP: Large R MCA mismatch with small right basal ganglia stroke MRI brain Acute infarcts in the right RUBY and MCA territories with hemorrhagic transformation in the right basal ganglia and small IVH TTE: EF >70% EKG on admission: NSR, QTc 429 LDL 130 HgbA1c 5.3 Repeat CTA brain/neck: ICA now open but there is occlusion of right M1-M2 junction. -Stroke Etiology (TOAST Criteria): Cryptogenic -Antiplatelet plan: Aspirin 81 mg daily -Statin therapy: Lipitor 40 mg daily -Blood Pressure goal: SBP <220 -Mobile cardiac telemetry for 30 days at discharge Ischemic Stroke Core Measures -NIHSS on admission 16 -Patient has been started on Mechanical (SCD's) and Pharmacological (SQ heparin/Lovenox) DVT prophylaxis. -Antiplatelet therapy has been initiated, Aspirin 81mg daily. -Anticoagulation therapy was not indicated for this patient -Patients LDL 130 and HgbA1c 5.3 were checked and the patient will be discharged on Atorvastatin daily. -Dysphagia screening ordered, and will be completed prior to patient receiving oral intake. -Stroke education booklet has been ordered and will be provided by the RN that includes both written and verbal education to the patient and family regarding ischemic strokes. We have reviewed the patient's personal modifiable risk factors including: HTN, HLD as well as education on reducing these risk factors -Patient is being assessed for Rehab by PT/OT/Speech and PM&R if indicated. HTN, POA: Nicardipine stopped 12/04 -Continue lisinopril 40 mg daily -Carvedilol 12.5 mg every 12 hours Dysphagia: Seen by speech, last 12/05, recommend NPO -Tube feeds via Dobbhoff -Discussed PEG tube with daughter on 12/06 -GI consulted 12/07, PEG planned today Likely Aspiration pneumonia: -completed 5 days ceftriaxone 2 gm daily on 12/07 Bacteremia: resolved -Blood cultures from 12/02 and 12/04 show staphylococcus hominis in 1/2 sets -Consult ID: blood cultures likely contaminate, repeat blood cultures with NGTD, signed off -Completed ceftriaxone 5 days as above Bilateral UE swelling: -BUE duplex negative for DVT, acute superficial thrombus in BUE Other problems: Complexity. Obesity Body mass index is 37.02 kg/m . - Follow with PCP for dietary and lifestyle modifications. Disposition: Aroldo Vargas will be discharged when medically ready. Haris Chakraborty APRN-COLLAR SETTER 12/11/2023 1:09 PM VITAL SIGNS Temp: [96.2 F (35.7 C)-98.2 F (36.8 C)] 97.9 F (36.6 C) Pulse (Heart Rate): [62-80] 62 Resp Rate: [20-28] 20 BP: (112-161)/(54-74) 161/74 O2 Sat (%): [92 %-95 %] 95 % Oxygen Therapy: Oxygen Therapy O2 Sat (%): 95 % Intake/Output: Intake/Output Summary (Last 24 hours) at 12/11/2023 1309 Last data filed at 12/11/2023 1255 Gross per 24 hour Intake 1009.43 ml Output 825 ml Net 184.43 ml LABS/CULTURES Lab Results Component Value Date WBC 14.51 (H) 12/11/2023 HGB 10.2 (L) 12/11/2023 HCT 32.0 (L) 12/11/2023 PLATELET 470 (H) 12/11/2023 MCV 96.7 12/11/2023 Lab Results Component Value Date SODIUM 138 12/11/2023 POTASSIUM 5.0 12/11/2023 CHLORIDE 103 12/11/2023 CO2 29 12/11/2023 BUN 34 (H) 12/11/2023 CREATSERUM 0.66 12/11/2023 GLUCOSE 129 (H) 12/11/2023 Lab Results Component Value Date CHOLESTEROL 186 11/30/2023 TRIG 86 11/30/2023 HDL 39 (L) 11/30/2023 LDLCALC 130 (H) 11/30/2023 Lab Results Component Value Date HGBA1C 5.3 11/30/2023 Lab Results Component Value Date ALBUMIN 3.4 (L) 11/30/2023 , Lab Results Component Value Date CPK 82 11/29/2023 IMAGING/DIAGNOSTIC STUDIES VASC DUPLEX VENOUS EXTREMITY UPPER BILATERAL Final Result XR ABDOMEN 1 VIEW Final Result IMPRESSION: Interval retraction of the Dobbhoff tube with the tip in the distal stomach pointed superiorly into the left. If postpyloric positioning is needed, repositioning prior to advancement is recommended. ABDOMEN 1 VIEW PORTABLE Final Result IMPRESSION: Dobbhoff tube remains coiled in the stomach with the tip in proximal stomach body. Discussed with Joycelyn Lala RN at 2:48am on Dec 06, 2023. I personally viewed and interpreted these images and I have reviewed and approved this report. ABDOMEN 1 VIEW Final Result IMPRESSION: Dobbhoff tube is looped in the distal stomach with tip in the proximal stomach. Repositioning/advancement recommended. ABDOMEN 1 VIEW Final Result IMPRESSION: Dobbhoff tube tip in the distal stomach. CHEST 1 VIEW PORTABLE Final Result IMPRESSION: No radiographic evidence of acute cardiopulmonary abnormality. ANGIO BRAIN/NECK Final Result IMPRESSION: 1. 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 2. Interval occlusion at the M1-M2 junction beginning at the origin of the dominant inferior branch of the right middle cerebral artery which is associated with poor distal collateralization. HEAD WITHOUT CONTRAST Final Result IMPRESSION: Evolving infarcts in the right RUBY and MCA distribution with hemorrhagic transformation in the right basal ganglia with unchanged focal hematoma. Mildly mass effect with leftward shift of 4 mm. CHEST 1 VIEW PORTABLE Final Result IMPRESSION: New bibasilar atelectasis status post placement of partially visualized feeding tube. HEAD WITHOUT CONTRAST Final Result IMPRESSION: Evolving infarcts in the right RUBY and MCA distribution with petechial hemorrhagic transformation in the right basal ganglia with unchanged focal hematoma. Mildly progressed mass effect with leftward shift of 4 mm. ABDOMEN 1 VIEW Final Result IMPRESSION: Dobbhoff tube with tip projecting over the pyloroduodenal region. Consider advancement to confirm postpyloric position. BRAIN WITHOUT CONTRAST Final Result IMPRESSION: Acute infarcts in the right RUBY and MCA territories with hemorrhagic transformation in the right basal ganglia and small volume intraventricular hemorrhage. Mass effect with mild leftward shift of 2 mm. HEAD WITHOUT CONTRAST Final Result IMPRESSION: No interval change in acute infarcts in the right RUBY and MCA distribution with a 1.4 cm hematoma in the right basal ganglia as confirmed on dual-energy CT. Similar mass effect and leftward shift of 3 mm. HEAD WITHOUT CONTRAST Final Result IMPRESSION: Evolving infarct involving a large portion of the right MCA vascular territory as described above, increased in extent in comparison to prior head CT. Hyperdensities involving the right basal ganglia likely represent a combination of hemorrhage and contrast staining. A more focal and hyperdense component involving the right globus pallidus is favored to represent hematoma. Further characterization and distinction of hemorrhage/contrast could be obtained with a dual energy CT if clinically indicated. The suspected hemorrhagic component is new in comparison to previous head CT from November 29, 2023. There is associated mass effect with effacement of the right lateral ventricle but minimal leftward midline shift at this point in time. Findings communicated to Dr. Powers on 11/30/2023 at 10:55 AM. 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 There is distal reconstitution of several right middle cerebral artery branches, likely related to collateral flow. Occlusion of the right M1 segment with distal reconstitution, as above. Short segment of occlusion of the proximal right A1 segment. Remainder of the anterior cerebral arteries are patent, without significant stenosis. CARDIOGRAM Final Result XR ABDOMEN 1 VIEW PORTABLE Final Result FINDINGS/IMPRESSION: Tubes: Feeding tube tip is just entering the duodenum. The lower pelvis was excluded. Normal bowel gas pattern. No definite pneumoperitoneum. ABDOMEN 1 VIEW PORTABLE Final Result IMPRESSION: Feeding tube with tip in the proximal stomach. If postpyloric position is desired further advancement is recommended. SPINE CERVICAL WITHOUT CONTRAST Final Result IMPRESSION: 1. No acute fracture or traumatic malalignment. 2. Degenerative changes as above. I personally viewed and interpreted these images and I have reviewed and approved this report. CEREBRAL PERFUSION ANALYSIS Final Result IMPRESSION: Large perfusion defect involving the right MCA and reticular striate territories. Completed infarct core in the basal ganglia with large volume of ischemic penumbra. STROKE HEAD-STROKE ALERT ONLY Final Result IMPRESSION: Acute nonhemorrhagic infarct in the right basal ganglia lenticulostriate distribution. No significant intracranial mass effect. Findings were discussed with Ryley Licea at 3:06 PM on November 29, 2023. I personally viewed and interpreted these images and I have reviewed and approved this report. RO IMAGING FOR NEURO ENDOVASCULAR (Results Pending) MEDICATIONS aspirin 81 mg Per NG tube Daily Atorvastatin 40 mg Per NG tube QHS carveDILOL 12.5 mg Per NG tube Q12HNS [Held by provider] enoxaparin 40 mg Subcutaneous Daily lidocaine 2 patch Transdermal Q24H Lisinopril 40 mg Per NG tube Daily Polyethylene glycol 17 g Per NG tube Q12H Senna 17.2 mg Per NG tube Q12H Stroke Attending Addendum (Date of service 12/10/23): I have interviewed and examined patient. I have reviewed Felix Maharaj CNP's note and agree with the following highlights, additions, and addendums: The patient is a 78 y.o. female with a history of hypertension, hyperlipidemia, and prior TIA who on 11/28/232144 was LKN and then developed symptoms of left hemiparesis. Patient was taken to [facility] where Telestroke showed an NIHSS of 8. CT brain was negative for acute changes. OSH CT angiogram head/neck showed right [id number]. The patient did not receive IVtPA. Patient transferred to [facility] ER and initial NIHSS on arrival was 16. CT brain showed right MCA infarct. CT perfusion brain shows right MM (25/120mL). Baseline mRS-2. The patient was taken for intra-arterial therapy and had TICI 2b recanalization or right carotid T occlusion. The patient was transferred to [facility]. MRI brain diffusion weighted images shows acute right RUBY/MCA infarcts. LDL 130, HgbA1c 5.3. TTE EF >70%. BCx + Staph hominis 1/2, ID consult felt contaminant, repeat BCx negative. PNA- completed course of CTX. Interval Overnight History: 128/96. Neurological examination shows left hemiparesis and neglect, NIHSS 17 (?-2, EOMI-2, LF-2, LUE-4, LLE-4, negl-2, dys-1). Assessment/Plan: Acute right MCA ischemic stroke, right carotid T occlusion s/p intra-arterial therapy with TICI 2b recanalization Post-stroke day # 12. Stroke work-up completed. Continue daily anti-platelet medication (Asa) and vascular risk factor modification. On lipitor 40. On coreg, lisinopril. DVT prophylaxis with SCDs and lovenox SQ. PT/OT consults-SNF. EM on discharge. NPO- dobhoff for TF. GI consulted- PEG tomorrow. Skip Mcfarland MD NEUROVASCULAR STROKE SERVICE Daily Progress Note IDENTIFYING INFORMATION Aroldo Vargas MR# [id number] 12/10/2023 HISTORY OF PRESENT ILLNESS Aroldo Vargas is a 78 y.o. female with PMH significant for HTN, HLD, CAD, dementia, TIA who presented to an [facility] after family found her with L hemiplegia, L facial droop and slurred speech. Seen on tele, NIHSS 8. CTA showed R ICA occlusion. She was out of the window for IV thrombolytics. Transferred to [facility] for further management. LKW 3105 on 11/28. On arrival to [facility], NIHSS 16. CTH with evolving R MCA territory stroke. CTP with R MCA mismatch. mRS 2 at baseline. 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 INTERVAL HISTORY 11/30: Brain MRI pending. 12/05: Transfer out of [facility]. 12/06: Dobbhoff dislodged overnight, replaced, restrained. Consult ID for positive blood cultures, repeat cultures. Daughter updated at bedside. UE venous duplex. 12/07: atbx complete, NETBACKUP ADMINISTRATOR to re-eval, GI consulted for PEG planning 12/08: No overnight events. PEG likely early next week. 12/09: NAEON. 12/10: exam stable, discussed with GI, PEG tentative for tomorrow PHYSICAL EXAM Gen: somnolent, NAD HEENT: normocephalic, no scalp lesions or tenderness Neck: trachea midline CV: +S1S2, RRR, no m/r/g Lungs: LCTA bilaterally with equal chest rise Abd: soft, nontender, nondistended, +BS x4 quadrants Extrem: Warm and well perfused, bilateral arms red and swollen Neuro: Opens eyes to speech, follows simple commands, incomprehensible speech CN II - Does not blink to threat on left CN II/III - PERRLA CN III/IV/ - Right gaze deviation CN V - CN VII - Left facial droop CN VIII - Hearing intact CN X - Cough present CN XI - Left shoulder weakness CN XII - MOTOR EXAMINATION: Left hemiplegia NIHSS 12/10/2023 Provider NIH Stroke Scale NIH Interval (Provider): daily NIH Level of Conciousness (Provider): 1 NIH LOC Questions (Provider): 2 NIH LOC Commands (Provider): 0 NIH Best Gaze (Provider): 1 NIH Visual (Provider): 2 NIH Facial Palsy (Provider): 2 NIH Left Arm Motor (Provider): 4 NIH Right Arm Motor (Provider): 0 NIH Left Leg Motor (Provider): 4 NIH Right Leg Motor (Provider): 2 NIH Limb Ataxia (Provider): 0 NIH Sensory (Provider): 2 NIH Best Language (Provider): 1 NIH Dysarthria (Provider): 1 NIH Extinction and Inattention (Provider): 1 NIH Total Score (Provider): 23 ASSESSMENT AND PLAN Neuro: Acute right hemispheric strokes, Right ICA/MCA occlusion s/p TICI 2b revascularization: CTH: Evolving R MCA territory stroke, no hemorrhage OSH CTA brain/neck: R ICA/M1 occlusion CTP: Large R MCA mismatch with small right basal ganglia stroke MRI brain Acute infarcts in the right RUBY and MCA territories with hemorrhagic transformation in the right basal ganglia and small IVH TTE: EF >70% EKG on admission: NSR, QTc 429 LDL 130 HgbA1c 5.3 Repeat CTA brain/neck: ICA now open but there is occlusion of right M1-M2 junction. -Stroke Etiology (TOAST Criteria): Cryptogenic -Antiplatelet plan: Aspirin 81 mg daily -Statin therapy: Lipitor 40 mg daily -Blood Pressure goal: SBP <220 -Mobile cardiac telemetry for 30 days at discharge Ischemic Stroke Core Measures -NIHSS on admission 16 -Patient has been started on Mechanical (SCD's) and Pharmacological (SQ heparin/Lovenox) DVT prophylaxis. -Antiplatelet therapy has been initiated, Aspirin 81mg daily. -Anticoagulation therapy was not indicated for this patient -Patients LDL 130 and HgbA1c 5.3 were checked and the patient will be discharged on Atorvastatin daily. -Dysphagia screening ordered, and will be completed prior to patient receiving oral intake. -Stroke education booklet has been ordered and will be provided by the RN that includes both written and verbal education to the patient and family regarding ischemic strokes. We have reviewed the patient's personal modifiable risk factors including: HTN, HLD as well as education on reducing these risk factors -Patient is being assessed for Rehab by PT/OT/Speech and PM&R if indicated. HTN, POA: Nicardipine stopped 12/04 -Continue lisinopril 40 mg daily -Carvedilol 12.5 mg every 12 hours Dysphagia: Seen by speech, last 12/05, recommend NPO -Tube feeds via Dobbhoff -Discussed PEG tube with daughter on 12/06 -GI consulted 12/07, PEG tentative for 12/11 Likely Aspiration pneumonia: -completed 5 days ceftriaxone 2 gm daily on 12/07 Bacteremia: resolved -Blood cultures from 12/02 and 12/04 show staphylococcus hominis in 1/2 sets -Consult ID: blood cultures likely contaminate, repeat blood cultures with NGTD, signed off -Complete ceftriaxone 5 days as above Bilateral UE swelling: -BUE duplex negative for DVT, acute superficial thrombus in BUE Other problems: Complexity. Obesity Body mass index is 37.02 kg/m . - Follow with PCP for dietary and lifestyle modifications. Disposition: Aroldo Vragas will be discharged when medically ready. Felix Maharaj APRN-COLLAR SETTER 12/10/2023 10:30 AM VITAL SIGNS Temp: [98.2 F (36.8 C)-99.3 F (37.4 C)] 98.9 F (37.2 C) Pulse (Heart Rate): [69-82] 69 Resp Rate: [18-24] 24 BP: (114-141)/(56-78) 128/56 O2 Sat (%): [93 %-95 %] 94 % Oxygen Therapy: Oxygen Therapy O2 Sat (%): 94 % Intake/Output: Intake/Output Summary (Last 24 hours) at 12/10/2023 1030 Last data filed at 12/10/2023 1014 Gross per 24 hour Intake 1000 ml Output 950 ml Net 50 ml LABS/CULTURES Lab Results Component Value Date WBC 14.46 (H) 12/10/2023 HGB 10.5 (L) 12/10/2023 HCT 33.4 (L) 12/10/2023 PLATELET 417 (H) 12/10/2023 MCV 96.0 12/10/2023 Lab Results Component Value Date SODIUM 137 12/10/2023 POTASSIUM 5.2 (H) 12/10/2023 CHLORIDE 103 12/10/2023 CO2 27 12/10/2023 BUN 34 (H) 12/10/2023 CREATSERUM 0.62 12/10/2023 GLUCOSE 173 (H) 12/10/2023 Lab Results Component Value Date CHOLESTEROL 186 11/30/2023 TRIG 86 11/30/2023 HDL 39 (L) 11/30/2023 LDLCALC 130 (H) 11/30/2023 Lab Results Component Value Date HGBA1C 5.3 11/30/2023 Lab Results Component Value Date ALBUMIN 3.4 (L) 11/30/2023 , Lab Results Component Value Date CPK 82 11/29/2023 IMAGING/DIAGNOSTIC STUDIES VASC DUPLEX VENOUS EXTREMITY UPPER BILATERAL Final Result XR ABDOMEN 1 VIEW Final Result IMPRESSION: Interval retraction of the Dobbhoff tube with the tip in the distal stomach pointed superiorly into the left. If postpyloric positioning is needed, repositioning prior to advancement is recommended. ABDOMEN 1 VIEW PORTABLE Final Result IMPRESSION: Dobbhoff tube remains coiled in the stomach with the tip in proximal stomach body. Discussed with Joycelyn Lala RN at 2:48am on Dec 06, 2023. I personally viewed and interpreted these images and I have reviewed and approved this report. ABDOMEN 1 VIEW Final Result IMPRESSION: Dobbhoff tube is looped in the distal stomach with tip in the proximal stomach. Repositioning/advancement recommended. ABDOMEN 1 VIEW Final Result IMPRESSION: Dobbhoff tube tip in the distal stomach. CHEST 1 VIEW PORTABLE Final Result IMPRESSION: No radiographic evidence of acute cardiopulmonary abnormality. ANGIO BRAIN/NECK Final Result IMPRESSION: 1. 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 2. Interval occlusion at the M1-M2 junction beginning at the origin of the dominant inferior branch of the right middle cerebral artery which is associated with poor distal collateralization. HEAD WITHOUT CONTRAST Final Result IMPRESSION: Evolving infarcts in the right RUBY and MCA distribution with hemorrhagic transformation in the right basal ganglia with unchanged focal hematoma. Mildly mass effect with leftward shift of 4 mm. CHEST 1 VIEW PORTABLE Final Result IMPRESSION: New bibasilar atelectasis status post placement of partially visualized feeding tube. HEAD WITHOUT CONTRAST Final Result IMPRESSION: Evolving infarcts in the right RUBY and MCA distribution with petechial hemorrhagic transformation in the right basal ganglia with unchanged focal hematoma. Mildly progressed mass effect with leftward shift of 4 mm. ABDOMEN 1 VIEW Final Result IMPRESSION: Dobbhoff tube with tip projecting over the pyloroduodenal region. Consider advancement to confirm postpyloric position. BRAIN WITHOUT CONTRAST Final Result IMPRESSION: Acute infarcts in the right RUBY and MCA territories with hemorrhagic transformation in the right basal ganglia and small volume intraventricular hemorrhage. Mass effect with mild leftward shift of 2 mm. HEAD WITHOUT CONTRAST Final Result IMPRESSION: No interval change in acute infarcts in the right RUBY and MCA distribution with a 1.4 cm hematoma in the right basal ganglia as confirmed on dual-energy CT. Similar mass effect and leftward shift of 3 mm. HEAD WITHOUT CONTRAST Final Result IMPRESSION: Evolving infarct involving a large portion of the right MCA vascular territory as described above, increased in extent in comparison to prior head CT. Hyperdensities involving the right basal ganglia likely represent a combination of hemorrhage and contrast staining. A more focal and hyperdense component involving the right globus pallidus is favored to represent hematoma. Further characterization and distinction of hemorrhage/contrast could be obtained with a dual energy CT if clinically indicated. The suspected hemorrhagic component is new in comparison to previous head CT from November 29, 2023. There is associated mass effect with effacement of the right lateral ventricle but minimal leftward midline shift at this point in time. Findings communicated to Dr. Powers on 11/30/2023 at 10:55 AM. 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 There is distal reconstitution of several right middle cerebral artery branches, likely related to collateral flow. Occlusion of the right M1 segment with distal reconstitution, as above. Short segment of occlusion of the proximal right A1 segment. Remainder of the anterior cerebral arteries are patent, without significant stenosis. CARDIOGRAM Final Result XR ABDOMEN 1 VIEW PORTABLE Final Result FINDINGS/IMPRESSION: Tubes: Feeding tube tip is just entering the duodenum. The lower pelvis was excluded. Normal bowel gas pattern. No definite pneumoperitoneum. ABDOMEN 1 VIEW PORTABLE Final Result IMPRESSION: Feeding tube with tip in the proximal stomach. If postpyloric position is desired further advancement is recommended. SPINE CERVICAL WITHOUT CONTRAST Final Result IMPRESSION: 1. No acute fracture or traumatic malalignment. 2. Degenerative changes as above. I personally viewed and interpreted these images and I have reviewed and approved this report. CEREBRAL PERFUSION ANALYSIS Final Result IMPRESSION: Large perfusion defect involving the right MCA and reticular striate territories. Completed infarct core in the basal ganglia with large volume of ischemic penumbra. STROKE HEAD-STROKE ALERT ONLY Final Result IMPRESSION: Acute nonhemorrhagic infarct in the right basal ganglia lenticulostriate distribution. No significant intracranial mass effect. Findings were discussed with Ryley Licea at 3:06 PM on November 29, 2023. I personally viewed and interpreted these images and I have reviewed and approved this report. RO IMAGING FOR NEURO ENDOVASCULAR (Results Pending) MEDICATIONS aspirin 81 mg Per NG tube Daily Atorvastatin 40 mg Per NG tube QHS carveDILOL 12.5 mg Per NG tube Q12HNS [Held by provider] enoxaparin 40 mg Subcutaneous Daily lidocaine 2 patch Transdermal Q24H Lisinopril 40 mg Per NG tube Daily Polyethylene glycol 17 g Per NG tube Q12H Senna 17.2 mg Per NG tube Q12H NEUROVASCULAR STROKE SERVICE Daily Progress Note IDENTIFYING INFORMATION Aroldo Vargas MR# [id number] 12/09/2023 HISTORY OF PRESENT ILLNESS Aroldo Vargas is a 78 y.o. female with PMH significant for HTN, HLD, CAD, dementia, TIA who presented to an [facility] after family found her with L hemiplegia, L facial droop and slurred speech. Seen on tele, NIHSS 8. CTA showed R ICA occlusion. She was out of the window for IV thrombolytics. Transferred to [facility] for further management. LKW 2145 on 11/28. On arrival to [facility], NIHSS 16. CTH with evolving R MCA territory stroke. CTP with R MCA mismatch. mRS 2 at baseline. 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 INTERVAL HISTORY 11/30: Brain MRI pending. 12/05: Transfer out of [facility]. 12/06: Dobbhoff dislodged overnight, replaced, restrained. Consult ID for positive blood cultures, repeat cultures. Daughter updated at bedside. UE venous duplex. 12/07: atbx complete, NETBACKUP ADMINISTRATOR to re-eval, GI consulted for PEG planning 12/08: No overnight events. PEG likely early next week. 12/09: NAEON. MBS likely tomorrow PHYSICAL EXAM Gen: somnolent, NAD HEENT: normocephalic, no scalp lesions or tenderness Neck: trachea midline CV: +S1S2, RRR, no m/r/g Lungs: LCTA bilaterally with equal chest rise Abd: soft, nontender, nondistended, +BS x4 quadrants Extrem: Warm and well perfused, bilateral arms red and swollen Neuro: Opens eyes to speech, follows simple commands, incomprehensible speech CN II - Does not blink to threat on left CN II/III - PERRLA CN III/IV/ - Right gaze deviation CN V - CN VII - Left facial droop CN VIII - Hearing intact CN X - Cough present CN XI - Left shoulder weakness CN XII - MOTOR EXAMINATION: Left hemiplegia NIHSS 12/09/2023 Provider NIH Stroke Scale NIH Interval (Provider): daily NIH Level of Conciousness (Provider): 1 NIH LOC Questions (Provider): 1 NIH LOC Commands (Provider): 0 NIH Best Gaze (Provider): 1 NIH Visual (Provider): 2 NIH Facial Palsy (Provider): 2 NIH Left Arm Motor (Provider): 3 NIH Right Arm Motor (Provider): 0 NIH Left Leg Motor (Provider): 3 NIH Right Leg Motor (Provider): 2 NIH Limb Ataxia (Provider): 0 NIH Sensory (Provider): 2 NIH Best Language (Provider): 1 NIH Dysarthria (Provider): 1 NIH Extinction and Inattention (Provider): 1 NIH Total Score (Provider): 20 ASSESSMENT AND PLAN Neuro: Acute right hemispheric strokes, Right ICA/MCA occlusion s/p TICI 2b revascularization: CTH: Evolving R MCA territory stroke, no hemorrhage OSH CTA brain/neck: R ICA/M1 occlusion CTP: Large R MCA mismatch with small right basal ganglia stroke MRI brain Acute infarcts in the right RUBY and MCA territories with hemorrhagic transformation in the right basal ganglia and small IVH TTE: EF >70% EKG on admission: NSR, QTc 429 LDL 130 HgbA1c 5.3 Repeat CTA brain/neck: ICA now open but there is occlusion of right M1-M2 junction. -Stroke Etiology (TOAST Criteria): Cryptogenic -Antiplatelet plan: Aspirin 81 mg daily -Statin therapy: Lipitor 40 mg daily -Blood Pressure goal: SBP <220 -Mobile cardiac telemetry for 30 days at discharge Ischemic Stroke Core Measures -NIHSS on admission 16 -Patient has been started on Mechanical (SCD's) and Pharmacological (SQ heparin/Lovenox) DVT prophylaxis. -Antiplatelet therapy has been initiated, Aspirin 81mg daily. -Anticoagulation therapy was not indicated for this patient -Patients LDL 130 and HgbA1c 5.3 were checked and the patient will be discharged on Atorvastatin daily. -Dysphagia screening ordered, and will be completed prior to patient receiving oral intake. -Stroke education booklet has been ordered and will be provided by the RN that includes both written and verbal education to the patient and family regarding ischemic strokes. We have reviewed the patient's personal modifiable risk factors including: HTN, HLD as well as education on reducing these risk factors -Patient is being assessed for Rehab by PT/OT/Speech and PM&R if indicated. HTN, POA: Nicardipine stopped 12/04 -Continue lisinopril 40 mg daily -Carvedilol 12.5 mg every 12 hours Dysphagia: Seen by speech, last 12/05, recommend NPO -Tube feeds via Dobbhoff -Discussed PEG tube with daughter on 12/06 -Speech re-eval 12/07, GI consulted for PEG planning given high likelihood patient will require PEG Likely Aspiration pneumonia: -completed 5 days ceftriaxone 2 gm daily on 12/07 Bacteremia: resolved -Blood cultures from 12/02 and 12/04 show staphylococcus hominis in 1/2 sets -Consult ID: blood cultures likely contaminate, repeat blood cultures with no growth 12/24, signed off -Complete ceftriaxone 5 days as above Bilateral UE swelling: -BUE duplex negative for DVT, acute superficial thrombus in BUE Other problems: Complexity. Obesity Body mass index is 37.02 kg/m . - Follow with PCP for dietary and lifestyle modifications. Disposition: Aroldo Vargas will be discharged when medically ready. Ryley Licea, ANGELO-COLLAR SETTER 12/09/2023 9:27 AM VITAL SIGNS Temp: [97.9 F (36.6 C)-98.6 F (37 C)] 98.4 F (36.9 C) Pulse (Heart Rate): [65-73] 72 Resp Rate: [20-22] 21 BP: (107-146)/(57-67) 146/67 O2 Sat (%): [94 %-95 %] 94 % Oxygen Therapy: Oxygen Therapy O2 Sat (%): 94 % Intake/Output: Intake/Output Summary (Last 24 hours) at 12/09/2023 0927 Last data filed at 12/09/2023 0801 Gross per 24 hour Intake 2226 ml Output 950 ml Net 1276 ml LABS/CULTURES Lab Results Component Value Date WBC 13.04 (H) 12/09/2023 HGB 9.9 (L) 12/09/2023 HCT 31.0 (L) 12/09/2023 PLATELET 377 12/09/2023 MCV 95.7 12/09/2023 Lab Results Component Value Date SODIUM 138 12/09/2023 POTASSIUM 4.9 12/09/2023 CHLORIDE 103 12/09/2023 CO2 28 12/09/2023 BUN 30 (H) 12/09/2023 CREATSERUM 0.60 12/09/2023 GLUCOSE 145 (H) 12/09/2023 Lab Results Component Value Date CHOLESTEROL 186 11/30/2023 TRIG 86 11/30/2023 HDL 39 (L) 11/30/2023 LDLCALC 130 (H) 11/30/2023 Lab Results Component Value Date HGBA1C 5.3 11/30/2023 Lab Results Component Value Date ALBUMIN 3.4 (L) 11/30/2023 , Lab Results Component Value Date CPK 82 11/29/2023 IMAGING/DIAGNOSTIC STUDIES VASC DUPLEX VENOUS EXTREMITY UPPER BILATERAL Final Result XR ABDOMEN 1 VIEW Final Result IMPRESSION: Interval retraction of the Dobbhoff tube with the tip in the distal stomach pointed superiorly into the left. If postpyloric positioning is needed, repositioning prior to advancement is recommended. ABDOMEN 1 VIEW PORTABLE Final Result IMPRESSION: Dobbhoff tube remains coiled in the stomach with the tip in proximal stomach body. Discussed with Joycelyn Lala RN at 2:48am on Dec 06, 2023. I personally viewed and interpreted these images and I have reviewed and approved this report. ABDOMEN 1 VIEW Final Result IMPRESSION: Dobbhoff tube is looped in the distal stomach with tip in the proximal stomach. Repositioning/advancement recommended. ABDOMEN 1 VIEW Final Result IMPRESSION: Dobbhoff tube tip in the distal stomach. CHEST 1 VIEW PORTABLE Final Result IMPRESSION: No radiographic evidence of acute cardiopulmonary abnormality. ANGIO BRAIN/NECK Final Result IMPRESSION: 1. 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 2. Interval occlusion at the M1-M2 junction beginning at the origin of the dominant inferior branch of the right middle cerebral artery which is associated with poor distal collateralization. HEAD WITHOUT CONTRAST Final Result IMPRESSION: Evolving infarcts in the right RUBY and MCA distribution with hemorrhagic transformation in the right basal ganglia with unchanged focal hematoma. Mildly mass effect with leftward shift of 4 mm. CHEST 1 VIEW PORTABLE Final Result IMPRESSION: New bibasilar atelectasis status post placement of partially visualized feeding tube. HEAD WITHOUT CONTRAST Final Result IMPRESSION: Evolving infarcts in the right RUBY and MCA distribution with petechial hemorrhagic transformation in the right basal ganglia with unchanged focal hematoma. Mildly progressed mass effect with leftward shift of 4 mm. ABDOMEN 1 VIEW Final Result IMPRESSION: Dobbhoff tube with tip projecting over the pyloroduodenal region. Consider advancement to confirm postpyloric position. BRAIN WITHOUT CONTRAST Final Result IMPRESSION: Acute infarcts in the right RUBY and MCA territories with hemorrhagic transformation in the right basal ganglia and small volume intraventricular hemorrhage. Mass effect with mild leftward shift of 2 mm. HEAD WITHOUT CONTRAST Final Result IMPRESSION: No interval change in acute infarcts in the right RUBY and MCA distribution with a 1.4 cm hematoma in the right basal ganglia as confirmed on dual-energy CT. Similar mass effect and leftward shift of 3 mm. HEAD WITHOUT CONTRAST Final Result IMPRESSION: Evolving infarct involving a large portion of the right MCA vascular territory as described above, increased in extent in comparison to prior head CT. Hyperdensities involving the right basal ganglia likely represent a combination of hemorrhage and contrast staining. A more focal and hyperdense component involving the right globus pallidus is favored to represent hematoma. Further characterization and distinction of hemorrhage/contrast could be obtained with a dual energy CT if clinically indicated. The suspected hemorrhagic component is new in comparison to previous head CT from November 29, 2023. There is associated mass effect with effacement of the right lateral ventricle but minimal leftward midline shift at this point in time. Findings communicated to Dr. Powers on 11/30/2023 at 10:55 AM. 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 There is distal reconstitution of several right middle cerebral artery branches, likely related to collateral flow. Occlusion of the right M1 segment with distal reconstitution, as above. Short segment of occlusion of the proximal right A1 segment. Remainder of the anterior cerebral arteries are patent, without significant stenosis. CARDIOGRAM Final Result XR ABDOMEN 1 VIEW PORTABLE Final Result FINDINGS/IMPRESSION: Tubes: Feeding tube tip is just entering the duodenum. The lower pelvis was excluded. Normal bowel gas pattern. No definite pneumoperitoneum. ABDOMEN 1 VIEW PORTABLE Final Result IMPRESSION: Feeding tube with tip in the proximal stomach. If postpyloric position is desired further advancement is recommended. SPINE CERVICAL WITHOUT CONTRAST Final Result IMPRESSION: 1. No acute fracture or traumatic malalignment. 2. Degenerative changes as above. I personally viewed and interpreted these images and I have reviewed and approved this report. CEREBRAL PERFUSION ANALYSIS Final Result IMPRESSION: Large perfusion defect involving the right MCA and reticular striate territories. Completed infarct core in the basal ganglia with large volume of ischemic penumbra. STROKE HEAD-STROKE ALERT ONLY Final Result IMPRESSION: Acute nonhemorrhagic infarct in the right basal ganglia lenticulostriate distribution. No significant intracranial mass effect. Findings were discussed with Ryley Licea at 3:06 PM on November 29, 2023. I personally viewed and interpreted these images and I have reviewed and approved this report. RO IMAGING FOR NEURO ENDOVASCULAR (Results Pending) MEDICATIONS aspirin 81 mg Per NG tube Daily Atorvastatin 40 mg Per NG tube QHS carveDILOL 12.5 mg Per NG tube Q12HNS enoxaparin 40 mg Subcutaneous Daily lidocaine 2 patch Transdermal Q24H Lisinopril 40 mg Per NG tube Daily Polyethylene glycol 17 g Per NG tube Q12H Senna 17.2 mg Per NG tube Q12H NEUROVASCULAR STROKE SERVICE Daily Progress Note IDENTIFYING INFORMATION Aroldo Vargas MR# [id number] 12/08/2023 HISTORY OF PRESENT ILLNESS Aroldo Vargas is a 78 y.o. female with PMH significant for HTN, HLD, CAD, dementia, TIA who presented to an [facility] after family found her with L hemiplegia, L facial droop and slurred speech. Seen on tele, NIHSS 8. CTA showed R ICA occlusion. She was out of the window for IV thrombolytics. Transferred to [facility] for further management. LKW 2145 on 11/28. On arrival to [facility], NIHSS 16. CTH with evolving R MCA territory stroke. CTP with R MCA mismatch. mRS 2 at baseline. 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 INTERVAL HISTORY 11/30: Brain MRI pending. 12/05: Transfer out of [facility]. 12/06: Dobbhoff dislodged overnight, replaced, restrained. Consult ID for positive blood cultures, repeat cultures. Daughter updated at bedside. UE venous duplex. 12/07: atbx complete, NETBACKUP ADMINISTRATOR to re-eval, GI consulted for PEG planning 12/08: No overnight events. PEG likely early next week. PHYSICAL EXAM Gen: somnolent, NAD HEENT: normocephalic, no scalp lesions or tenderness Neck: trachea midline CV: +S1S2, RRR, no m/r/g Lungs: LCTA bilaterally with equal chest rise Abd: soft, nontender, nondistended, +BS x4 quadrants Extrem: Warm and well perfused, bilateral arms red and swollen Neuro: Opens eyes to speech, follows simple commands, incomprehensible speech CN II - Does not blink to threat on left CN II/III - PERRLA CN III/IV/ - Right gaze deviation CN V - CN VII - Left facial droop CN VIII - Hearing intact CN X - Cough present CN XI - Left shoulder weakness CN XII - MOTOR EXAMINATION: Left hemiplegia NIHSS 12/08/2023 Provider NIH Stroke Scale NIH Interval (Provider): daily NIH Level of Conciousness (Provider): 1 NIH LOC Questions (Provider): 1 NIH LOC Commands (Provider): 1 NIH Best Gaze (Provider): 1 NIH Visual (Provider): 2 NIH Facial Palsy (Provider): 2 NIH Left Arm Motor (Provider): 3 NIH Right Arm Motor (Provider): 0 NIH Left Leg Motor (Provider): 3 NIH Right Leg Motor (Provider): 2 NIH Limb Ataxia (Provider): 0 NIH Sensory (Provider): 2 NIH Best Language (Provider): 1 NIH Dysarthria (Provider): 1 NIH Extinction and Inattention (Provider): 1 NIH Total Score (Provider): 21 ASSESSMENT AND PLAN Neuro: Acute right hemispheric strokes, Right ICA/MCA occlusion s/p TICI 2b revascularization: CTH: Evolving R MCA territory stroke, no hemorrhage OSH CTA brain/neck: R ICA/M1 occlusion CTP: Large R MCA mismatch with small right basal ganglia stroke MRI brain Acute infarcts in the right RUBY and MCA territories with hemorrhagic transformation in the right basal ganglia and small IVH TTE: EF >70% EKG on admission: NSR, QTc 429 LDL 130 HgbA1c 5.3 Repeat CTA brain/neck: ICA now open but there is occlusion of right M1-M2 junction. -Stroke Etiology (TOAST Criteria): Cryptogenic -Antiplatelet plan: Aspirin 81 mg daily -Statin therapy: Lipitor 40 mg daily -Blood Pressure goal: SBP <220 -Mobile cardiac telemetry for 30 days at discharge Ischemic Stroke Core Measures -NIHSS on admission 16 -Patient has been started on Mechanical (SCD's) and Pharmacological (SQ heparin/Lovenox) DVT prophylaxis. -Antiplatelet therapy has been initiated, Aspirin 81mg daily. -Anticoagulation therapy was not indicated for this patient -Patients LDL 130 and HgbA1c 5.3 were checked and the patient will be discharged on Atorvastatin daily. -Dysphagia screening ordered, and will be completed prior to patient receiving oral intake. -Stroke education booklet has been ordered and will be provided by the RN that includes both written and verbal education to the patient and family regarding ischemic strokes. We have reviewed the patient's personal modifiable risk factors including: HTN, HLD as well as education on reducing these risk factors -Patient is being assessed for Rehab by PT/OT/Speech and PM&R if indicated. HTN, POA: Nicardipine stopped 12/04 -Continue lisinopril 40 mg daily -Carvedilol 12.5 mg every 12 hours Dysphagia: Seen by speech, last 12/05, recommend NPO -Tube feeds via Dobbhoff -Discussed PEG tube with daughter on 12/06 -Speech re-eval 12/07, GI consulted for PEG planning given high likelihood patient will require PEG Likely Aspiration pneumonia: -completed 5 days ceftriaxone 2 gm daily on 12/07 Bacteremia: resolved -Blood cultures from 12/02 and 12/04 show staphylococcus hominis in 1/2 sets -Consult ID: likely contaminate, repeat blood cultures with no growth 11/23, signed off -Complete ceftriaxone 5 days as above Bilateral UE swelling: -BUE duplex negative for DVT, acute superficial thrombus in BUE Other problems: Complexity. Obesity Body mass index is 37.02 kg/m . - Follow with PCP for dietary and lifestyle modifications. Disposition: Aroldo Vargas will be discharged when medically ready. Ryley Licea APRN-COLLAR SETTER 12/08/2023 9:11 AM VITAL SIGNS Temp: [97.5 F (36.4 C)-98.3 F (36.8 C)] 98.3 F (36.8 C) Pulse (Heart Rate): [67-76] 67 Resp Rate: [18-28] 18 BP: (101-126)/(52-62) 116/62 O2 Sat (%): [92 %-95 %] 95 % Oxygen Therapy: Oxygen Therapy O2 Sat (%): 95 % O2 Device: room air Intake/Output: Intake/Output Summary (Last 24 hours) at 12/08/2023 0911 Last data filed at 12/08/2023 0637 Gross per 24 hour Intake 1074 ml Output 1250 ml Net -176 ml LABS/CULTURES Lab Results Component Value Date WBC 11.65 (H) 12/08/2023 HGB 9.3 (L) 12/08/2023 HCT 29.4 (L) 12/08/2023 PLATELET 353 12/08/2023 MCV 96.7 12/08/2023 Lab Results Component Value Date SODIUM 138 12/08/2023 POTASSIUM 4.7 12/08/2023 CHLORIDE 104 12/08/2023 CO2 28 12/08/2023 BUN 28 (H) 12/08/2023 CREATSERUM 0.47 (L) 12/08/2023 GLUCOSE 133 (H) 12/08/2023 Lab Results Component Value Date CHOLESTEROL 186 11/30/2023 TRIG 86 11/30/2023 HDL 39 (L) 11/30/2023 LDLCALC 130 (H) 11/30/2023 Lab Results Component Value Date HGBA1C 5.3 11/30/2023 Lab Results Component Value Date ALBUMIN 3.4 (L) 11/30/2023 , Lab Results Component Value Date CPK 82 11/29/2023 IMAGING/DIAGNOSTIC STUDIES VASC DUPLEX VENOUS EXTREMITY UPPER BILATERAL Final Result XR ABDOMEN 1 VIEW Final Result IMPRESSION: Interval retraction of the Dobbhoff tube with the tip in the distal stomach pointed superiorly into the left. If postpyloric positioning is needed, repositioning prior to advancement is recommended. ABDOMEN 1 VIEW PORTABLE Final Result IMPRESSION: Dobbhoff tube remains coiled in the stomach with the tip in proximal stomach body. Discussed with Joycelyn Lala RN at 2:48am on Dec 06, 2023. I personally viewed and interpreted these images and I have reviewed and approved this report. ABDOMEN 1 VIEW Final Result IMPRESSION: Dobbhoff tube is looped in the distal stomach with tip in the proximal stomach. Repositioning/advancement recommended. ABDOMEN 1 VIEW Final Result IMPRESSION: Dobbhoff tube tip in the distal stomach. CHEST 1 VIEW PORTABLE Final Result IMPRESSION: No radiographic evidence of acute cardiopulmonary abnormality. ANGIO BRAIN/NECK Final Result IMPRESSION: 1. 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 2. Interval occlusion at the M1-M2 junction beginning at the origin of the dominant inferior branch of the right middle cerebral artery which is associated with poor distal collateralization. HEAD WITHOUT CONTRAST Final Result IMPRESSION: Evolving infarcts in the right RUBY and MCA distribution with hemorrhagic transformation in the right basal ganglia with unchanged focal hematoma. Mildly mass effect with leftward shift of 4 mm. CHEST 1 VIEW PORTABLE Final Result IMPRESSION: New bibasilar atelectasis status post placement of partially visualized feeding tube. HEAD WITHOUT CONTRAST Final Result IMPRESSION: Evolving infarcts in the right RUBY and MCA distribution with petechial hemorrhagic transformation in the right basal ganglia with unchanged focal hematoma. Mildly progressed mass effect with leftward shift of 4 mm. ABDOMEN 1 VIEW Final Result IMPRESSION: Dobbhoff tube with tip projecting over the pyloroduodenal region. Consider advancement to confirm postpyloric position. BRAIN WITHOUT CONTRAST Final Result IMPRESSION: Acute infarcts in the right RUBY and MCA territories with hemorrhagic transformation in the right basal ganglia and small volume intraventricular hemorrhage. Mass effect with mild leftward shift of 2 mm. HEAD WITHOUT CONTRAST Final Result IMPRESSION: No interval change in acute infarcts in the right RUBY and MCA distribution with a 1.4 cm hematoma in the right basal ganglia as confirmed on dual-energy CT. Similar mass effect and leftward shift of 3 mm. HEAD WITHOUT CONTRAST Final Result IMPRESSION: Evolving infarct involving a large portion of the right MCA vascular territory as described above, increased in extent in comparison to prior head CT. Hyperdensities involving the right basal ganglia likely represent a combination of hemorrhage and contrast staining. A more focal and hyperdense component involving the right globus pallidus is favored to represent hematoma. Further characterization and distinction of hemorrhage/contrast could be obtained with a dual energy CT if clinically indicated. The suspected hemorrhagic component is new in comparison to previous head CT from November 29, 2023. There is associated mass effect with effacement of the right lateral ventricle but minimal leftward midline shift at this point in time. Findings communicated to Dr. Powers on 11/30/2023 at 10:55 AM. 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 There is distal reconstitution of several right middle cerebral artery branches, likely related to collateral flow. Occlusion of the right M1 segment with distal reconstitution, as above. Short segment of occlusion of the proximal right A1 segment. Remainder of the anterior cerebral arteries are patent, without significant stenosis. CARDIOGRAM Final Result XR ABDOMEN 1 VIEW PORTABLE Final Result FINDINGS/IMPRESSION: Tubes: Feeding tube tip is just entering the duodenum. The lower pelvis was excluded. Normal bowel gas pattern. No definite pneumoperitoneum. ABDOMEN 1 VIEW PORTABLE Final Result IMPRESSION: Feeding tube with tip in the proximal stomach. If postpyloric position is desired further advancement is recommended. SPINE CERVICAL WITHOUT CONTRAST Final Result IMPRESSION: 1. No acute fracture or traumatic malalignment. 2. Degenerative changes as above. I personally viewed and interpreted these images and I have reviewed and approved this report. CEREBRAL PERFUSION ANALYSIS Final Result IMPRESSION: Large perfusion defect involving the right MCA and reticular striate territories. Completed infarct core in the basal ganglia with large volume of ischemic penumbra. STROKE HEAD-STROKE ALERT ONLY Final Result IMPRESSION: Acute nonhemorrhagic infarct in the right basal ganglia lenticulostriate distribution. No significant intracranial mass effect. Findings were discussed with Ryley Licea at 3:06 PM on November 29, 2023. I personally viewed and interpreted these images and I have reviewed and approved this report. RO IMAGING FOR NEURO ENDOVASCULAR (Results Pending) MEDICATIONS aspirin 81 mg Per NG tube Daily Atorvastatin 40 mg Per NG tube QHS carveDILOL 12.5 mg Per NG tube Q12HNS enoxaparin 40 mg Subcutaneous Daily Lisinopril 40 mg Per NG tube Daily Polyethylene glycol 17 g Per NG tube Q12H Senna 17.2 mg Per NG tube Q12H BRIEF ID NOTE Pt not seen but chart reviewed. Pt initially presented with a CVA and subsequently found to have 1/2 bcx positive for staph hominis on 12/02. Repeat bcx on 12/04 positive 1/2 for staph epi. Given this, high suspicion that these are contaminants. Noted repeat bcx from 12/06 with NGTD 11/23 thus far. Will need to have these cultures followed up for at least 48 hrs. If there is NG, this will further solidify that these are contaminants. If there is recurrent growth, please call back the ID team to further evaluate. At this time, no need to treat these bcx results. Pt previously on PNA abx coverage. Will defer to primary team given abx discontinued. ID team 2 will sign off. Please call back with questions. Rosario Lee MD Associated attestation - Mc Tobias MD, MPH - 12/07/2023 7:20 PM EST I agree with the fellow, Dr. Rosario Lee's, note above, including the history and medical decisions. I discussed the findings and therapeutic plan with the fellow, and we collaborated on medical decision making for this patient. Mc Tobias MD, MPH battery assembler plastic Division of Infectious Diseases Pager # [phone] NUTRITION FOLLOW-UP Nutrition Recommendations and Plan of Care: Diet per NETBACKUP ADMINISTRATOR. Change TF to Jevity 1.5 @ 50 mL/hr to provide 1200 mL total volume, 1800 kcal (29 kcal/kg adj IBW), and 77 g PRO (1.2 g/kg adj IBW). Free water per primary team. Recommend minimum of 30 mL q4 hours x 6 daily to maintain tube patency. Monitor TF intake, TF tolerance, GI function, skin integrity, weight changes, and labs. RD to continue to follow. Per HPI, Aroldo Vargas is a 78 y.o. female with PMH significant for HTN, HLD, CAD, dementia, TIA who presented to an [facility] after family found her with L hemiplegia, L facial droop and slurred speech. Seen on tele, NIHSS 8. CTA showed R ICA occlusion. She was out of the window for IV thrombolytics. Transferred to [facility] for further management. LKW 2145 on 11/28. On arrival to [facility], NIHSS 16. CTH with evolving R MCA territory stroke. CTP with R MCA mismatch. mRS 2 at baseline. 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 Nutrition History/Assessment: Pt last assessed by RD 11/30. RD recommended TF of Vital AF 1.2 at 55 mL/hr. Per MAR, Vital AF 1.2 was started at 10 mL/hr afternoon of 11/30. To goal rate of 55 mL/hr the following morning. Continued at goal rate until stopped evening of 12/05 as pt pulled DHT. TF resumed at goal rate the following morning. Has continued at goal rate without stoppages since. Per I/Os, in the past week pt received an average TF volume of 1011 mL/day, meeting 77% of goal TF volume. Pt last assessed by NETBACKUP ADMINISTRATOR 12/05 with continued recommendations for NPO. Attempted to visit pt at bedside this afternoon. Pt getting cleaned up by INTEGRITY ASSESSOR. Pt noted to be lethargic and Ox1, so suspect pt unable to provide much information. Spoke with pt's son outside room. He reports he and his siblings think pt may have lost ~50# x 1 year; however, they are unsure of pt's UBW or exactly how much weight pt has lost. Reports pt weighed > 300# at one point. Pt's son reports pt's a couple years ago. 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 Pt's son reports pt has not complained of any GI symptoms. Nutrition Focused Physical Exam: deferred, pt unable to participate in exam has no allergies on file. Current Diet Orders Procedures DIET NPO AND TUBE FEEDING with meds Standing Status: Standing Number of Occurrences: 1 Order Specific Question: NPO Meds: Answer: with meds Ht: 5' 2" Current Wt: 91.8 kg (202#) Admit Wt: 91.8 kg (202 lb 6.1 oz) IBW: 50 kg (110#) %IBW: 184% BMI: 37.0 Weight History per Care Everywhere: Limited weight history available. CBW c/w wt from 07/2022. Unsure if CBW or wt from 11/29 accurate as wt from 11/29 more consistent with family's reported UBW. Wt Readings from Last 20 Encounters: 11/30/23 91.8 kg (202 lb 6.1 oz) 11/29/23 109.2 kg 07/23/22 90.6 kg meds reviewed: Scheduled: Reviewed, includes Miralax, senna Continuous: Reviewed, includes Vital AF Labs reviewed: Sodium Date Value Ref Range Status 12/07/2023 136 135 - 145 mmol/L Final Potassium Date Value Ref Range Status 12/07/2023 4.3 3.5 - 5.0 mmol/L Final Chloride Date Value Ref Range Status 12/07/2023 103 98 - 108 mmol/L Final CO2 Date Value Ref Range Status 12/07/2023 26 21 - 31 mmol/L Final BUN Date Value Ref Range Status 12/07/2023 31 (H) 7 - 25 mg/dL Final Creatinine Date Value Ref Range Status 12/07/2023 0.49 (L) 0.50 - 1.20 mg/dL Final Magnesium Date Value Ref Range Status 12/07/2023 2.0 1.6 - 2.6 mg/dL Final Phosphorous Date Value Ref Range Status 12/07/2023 3.5 2.2 - 4.6 mg/dL Final Albumin Date Value Ref Range Status 11/30/2023 3.4 (L) 3.5 - 5.0 g/dL Final Glucose Date Value Ref Range Status 12/07/2023 132 (H) 70 - 99 mg/dL Final Hemoglobin A1C HPLC Date Value Ref Range Status 11/30/2023 5.3 4.7 - 5.6 % Final WBC/Hgb/Hct/Plts: 13.32/9.7/30.6/340 (12/07 0029) Lab Results Component Value Date GLUCOSE 132 (H) 12/07/2023 GLUCOSE 95 12/06/2023 GLUCOSE 136 (H) 12/05/2023 GLUCOSE 136 (H) 12/03/2023 GLUCOSE 155 (H) 12/02/2023 GLUCOSE 138 (H) 12/02/2023 No results found for: "[id number]" GI: Last bm: 12/05 (soft) Enteral access: gastric DHT AXR 12/06: "Interval retraction of the Dobbhoff tube with the tip in the distal stomach pointed superiorly into the left." Skin: José Miguel Score: 15 Edema- 3+ (moderate): L/R arm Active Wounds: Wound Sheath Site 11/29/23 1551 Right Femoral (8) Wound 12/06/23 1030 Left Radial (1) Respiratory: Oxygen therapy: 2L NC I/O: +6.6L since admit Cognitive Status: lethargic, Ox1, garbled speech Estimated Nutrition Needs: Weight Used: 62 kg (adj IBW) EEN: 0835-4197 kcal/day (25-30 kcal/kg adj IBW) EPN: 74-93 g/day (1.2-1.5 g/kg) EFN: 1860 mL/day (30 mL/kg adj IBW) or per primary team Malnutrition Diagnosis: Indications of Malnutrition: Unable to assess (d/t mental status/pt unavailable/unable to obtain full nutrition history) based on the AND/ASPEN Malnutrition Criteria [address], LD, [facility] Pager #[phone] Acute Care Speech Language Pathology Treatment Diet Recommendations: Recommended Method of Nutrition: NPO Recommended Medication Administration (as appropriate per MD): Non-Oral *Consider limited ice chips and sips of water following oral care, given strict 1:1 supervision to assist in secretions clearance and reduce risk of disuse atrophy. *To prevent potential development of aspiration pneumonia/nosocomial infections, RECOMMEND: Oral care routine q4h and HOB upright as tolerated Best mode of Communication: verbal Communication Strategies: establish joint attention, speak loudly, allow processing time Discharge Recommendations: Based on the below outcome measures/assessment score(s) and NETBACKUP ADMINISTRATOR clinical judgment, discharge destination recommendation is: [facility] Barriers to discharge home: 1:1 assist needed for IADL's including medication management and finances, Cognitive impairments that impact safety and independence Supporting factors for discharge setting: Impaired swallow function limiting nutritional status and safety with oral intake, Impaired cognitive skills limiting safety/insight Acute NETBACKUP ADMINISTRATOR Outcomes Tracking Communicate basic wants and needs?: yes Demo insight/appreciation of deficits?: no Complete basic problem solving?: no Current therapy frequency recommendation in acute: Speech/Lang/Cog Therapy Frequency: 3 times a week Swallow Therapy Frequency: 5 times a week Clinical Impression: Lethargy remained a barrier to engagement in dysphagia intervention this date. Initially, functional acceptance and she verbalized motivation for water. However, max verbal + tactile cues to both sustain alertness and to accept trials, repeatedly closed lips around straw without initiating a siphon. Minimal intake achieved across 20 minutes with max assist, concerned for her ability to maintain oral nutrition/hydration until participation increases to support active engagement in care plan. As lethargy worsened across session, attempted speech goals but unable to address. Subjective information: Lethargy continued to be a barrier to advancing her dysphagia care plan Pain: Nonverbal indicator not present Precautions: Patient Safety Communication Prior to Visit: COLLAR SETTER/PA Lines/Tubes/Drains (Rehab Status): Telemetry, Tube feed Existing Precautions/Restrictions: fall, NPO Respiratory Status: O2 Sat (%): 97 % (12/07 0800) O2 Device: nasal cannula (12/07 1045) Flow (L/min): 2 (12/07 0820) Acute NETBACKUP ADMINISTRATOR Goals Plan of Care by AMADO Solis at 12/07/2023 1:06 PM Version 1 of 1 Problem: Dysphagia Goal: Ongoing Assessment - Patient will participate in ongoing assessment by accepting various PO consistency trials with appropriate participation/oral acceptance and no significant respiratory complications to determine readiness for po diet vs instrumental Addressed via ice x5, water by straw x7 and puree by tsp x3. Max verbal + tactile cues were effective, though increased as trials progressed d/t lethargy. Pt with immediate cough in 2 water trials, concerning for penetration/aspiration. Appeared to improve across trials with opportunities for increased po intake, though lethargy worsened as a contraindication. Additionally, incomplete bolus formation with puree. Sensate as she requested NETBACKUP ADMINISTRATOR clearance. Cues for liquid wash or lingual sweep were ineffective and NETBACKUP ADMINISTRATOR completed oral care to remove. Outcome: Ongoing Patient Instruction/Education this session: Limited by lethargy again this session Plan for next session: bolus challenge trials to determine readiness for instrumental NETBACKUP ADMINISTRATOR Outcomes: FOIS2 Speech Language Pathologist: AMADO Solis Time In: 1215 Time Out: 1235 Total Visit Time: 20 minutes Total Treatment Time (skilled, billable minutes): 20 minutes Non-billable assistance during session: na Assisted by during session: na PPE used during patient interaction: facemask, gloves Patient location/status at end of session: bed with head of bed elevated Patient alarms at end of session: none altered Needs in reach. NETBACKUP ADMINISTRATOR Evaluation and Treatment Time Swallowing Dysfunction Treatment [id number]: 20 Upon discontinuation of Acute Care Speech Therapy Services or patient discharge from the hospital this note represents the current Speech Therapy Discharge Summary Acute Occupational Therapy Treatment Prior to Admission AM-PAC Score: PRIOR LEVEL AM-PAC Activity Raw Score: 24 Current AM-PAC score(s): CURRENT AM-PAC Activity Raw Score: 7 Based on the above AM-PAC score(s), and OT clinical judgment, discharge destination recommendation is: [facility] Barriers to discharge home: Patient needs assistance with ADLs, Patient needs assistance with IADLs (see note below), Cognitive impairments that impact safety (see note below) Mobility equipment available at home: 2 wheeled walker, none used ADL equipment available at home: Equipment recommendations for discharge: to be determined Current therapy frequency recommendation(s) in acute: 5 times a week Precautions and Weightbearing Status: OT Existing Precautions/Restrictions: fall Telemetry, Tube feed Patient Safety Communication Prior to Visit: Nursing Subjective: Pt agreeable to OT session, limited verbalizations and max cues for opening eyes and alertness Pain: General Pain Documentation (Adult, OB, Peds) Presence of Pain: not present: non-verbal indicator of pain/discomfort Presence of Pain Score (Auto-calculated): 0 Objective/Observation: Vitals/Vitals Responses to Treatment: VSS O2 Device: nasal cannula Cognition Overall Cognitive Status: Impaired Arousal/Alertness: Delayed responses to stimuli (lethargic) Orientation Level: Oriented to person (hospital) Following Commands: Follows one step commands with repetition, Follows one step commands with increased time, Follows commands 25-50% of the time Safety Judgment: Decreased awareness of need for safety, Decreased awareness of need for assistance Awareness of Errors: Decreased awareness of errors Deficits: Decreased awareness of deficits Attention Span: Difficulty attending to directions Problem Solving: Assistance required to identify errors made, Assistance required to generate solutions Cognition Comments: lethargic this date, cues to open eyes, continues to present with significant right gaze preference and left neglect though with min improved tracking to left briefly ADL Assessment/Intervention: ADLs: Eating Assistance: Grooming Assistance: Moderate Grooming Location: edge of bed Grooming Deficit: Activity tolerance, Generalized weakness, Balance, Brushing hair Grooming Skilled Rationale (Verbal/Tactile/Visual/Demonstration): Setup, Supervision Grooming Intervention/Details: Max a for use of shampoo cap while seated EOB with dep A for sitting balance. Pt able to identify hair brush and retrieve from right visual field with min A and brush hair with fair quality both on left and right, assist to finish task Bathing Assistance: UE Dressing Assistance: LE Dressing Assistance: Toilet Assistance: Extremity Assessments: See OT Evaluation flowsheet for Extremity Measurement updates. Balance: Sitting Balance Static Sitting-Level of Assistance: Dependent Skilled Rationale: Verbal cues, Tactile cues, Positioning, Facilitate anterior shift, Finding/maintaining midline positioning Sitting Balance Skilled Intervention/Details: Pt sat EOB approx 15-17 min with dep A For sitting balance. Pt with retropulsive posture and with intermittent pushing thorugh RUE towards left. with tactile cues to place right hand in lap, reduced pushing tendencies. Pt challenged to correct balance but despite cues pt not able to correct posture. Pt challenged throughout to visually attend to left side. Pt able to track past midline with eyes x3 with cues but not able to maintain more than 1-2 sec and unable to turn head to left. provided passive stretch throughout to cervical rotation to promote midline neck positioning and increased awareness of environment Skin and Edema: Mobility Assessment/Intervention: Scooting Bridging Mobility [place] Level: Scooting/Bridging: dependent (less than 25% patient effort) Physical Assist: Scooting/Bridgin person assist Bed Features/Set-up: Scooting/Bridging: Flat Skilled Rationale: Verbal cues Skilled Intervention/Details: Scooting/Bridging: boost in bed Supine to Sit Mobility [place] Level: Supine->Sit: dependent (less than 25% patient effort) Physical Assist: Supine->Sit: 2 person assist Bed Features/Set-up: Supine->Sit: Head of bed elevated Skilled Rationale: Verbal cues Skilled Intervention/Details: Supine->Sit: no initiation despite cues Sit to Supine Mobility [place] Level: Sit->Supine: dependent (less than 25% patient effort) Physical Assist: Sit->Supine: 2 person assist Bed Features/Set-up: Sit->Supine: Head of bed elevated Skilled Rationale: Verbal cues Transfer Assessment/Intervention: Functional Mobility: Outcome Score(s): CURRENT [facility] Daily Activity Inpatient Short Form Putting on/Taking Off Lower Body Clothin - Total Assistance Bathin - Total Assistance Toiletin - Total Assistance Putting on/Taking Off Upper Body Clothin - Total Assistance Groomin - A Lot of Assistance Eatin - Total Assistance CURRENT [facility] Activity Raw Score: 7 CURRENT [facility] Activity Functional Limitation/Modifier: 92.44% Currently Impaired in Daily Activity - CM Assessment & Plan: Pt demonstrates increased visual scanning from previous session and is making limited progress towards goals. Pt continues to present with deficits in balance, cognition, attention, strength and requires 1-2 person assist for ADLs and functional transfer and mobility tasks. Pt requires continued skilled OT services to address functional deficits and maximize safety and independence in ADLs for return home safely. Patient Instruction/Education this session: cues for attention to task and visual scanning, cues for sitting balance and posture, goal of therapy Plan for next session: increased EOB sitting balance and tolerance, visual scanning to left, functional ADL tasks EOB Acute OT Goals Plan of Care by Desirae Quintero OT at 12/07/2023 10:45 AM Version 1 of 1 Problem: OT - Transfers Goal: Transfers Supine -> Sit - Patient will perform supine to/from sit with flat bed & no rail and maximal assistance to improve participation in ADLs. Outcome: Ongoing Problem: OT - Balance Goal: Balance - Seated - Patient will perform 15 minutes of functional task in sitting with moderate assistance and fair balance to promote safety during self-care activities. Outcome: Ongoing Problem: OT - Cognition Goal: Cognition Simple ADL - Patient will demonstrate improved cognition, completing simple ADL task for 10 minutes with no greater than min cues required to maintain attention. Outcome: Ongoing Problem: OT - ADLs Goal: Grooming - Patient will complete grooming edge of bed with minimal assistance for improved ability to safely complete ADLs. Outcome: Progressing Toward Goal Problem: OT - Vision Goal: Visual Tracking - Patient will track past midline to left during session with no greater than mod cues to attend to familiar object/person for ADL participation in 5/5 trials. Outcome: Progressing Toward Goal OT treatment consisted of the following to work and progress towards the above goal(s): OT Evaluation and Treatment Time Self Care/Home Management (ADLs) Time Entry: 14 Neuromuscular Re-Education Time Entry: 10 Treating Therapist: Desirae Quintero OT Additional Details: OT Co-Eval/Treatment Information Co-evaluation/co-treatment performed?: Yes, simultaneous billable skilled care was necessary due to medical complexity and functional deficits Other discipline: PT Rationale for need to co-eval/treat: cognitive issues, postural control Co-treatment goal focus: self-care PPE used during patient interaction: facemask, gloves Patient location at end of session: bed with head of bed elevated Alarms on at end of session: bed alarm Needs in reach. Time In: 1023 Time Out: 1047 Total Visit Time: 24 minutes Total Treatment Time (skilled, billable minutes): 24 minutes Upon discontinuation of Acute Care Occupational Therapy Services or patient discharge from the hospital this note represents the current Occupational Therapy Discharge Summary. Acute Physical Therapy Treatment Prior to Admission [facility] score(s): PRIOR LEVEL AM-PAC Activity Raw Score: 24 Current AM-PAC score(s): CURRENT AM-PAC Mobility Raw Score: 6 Based on the above AM-PAC score(s) and PT clinical judgment, patient is a good candidate for discharge to [facility] Barriers to discharge home: Patient needs assistance with functional mobility Mobility equipment available at home: 2 wheeled walker, none used ADL equipment available at home: Equipment needed for discharge: to be determined Current therapy frequency recommendation in acute: Therapy Frequency: 5 times a week Precautions and Weightbearing Status: Existing Precautions/Restrictions: fall, NPO Telemetry, Tube feed Patient Safety Communication Prior to Visit: COLLAR SETTER/PA Subjective: Pt lethargic, but agreeable to PT Pain: General Pain Documentation (Adult, OB, Peds) Presence of Pain: not present: non-verbal indicator of pain/discomfort Presence of Pain Score (Auto-calculated): 0 Objective/Observation: Vitals/Vitals Responses to Treatment: No adverse response to PT treatment. O2 Device: nasal cannula Cognition Overall Cognitive Status: Impaired Arousal/Alertness: Delayed responses to stimuli Orientation Level: Oriented to person Following Commands: Follows one step commands with increased time, Follows one step commands with repetition, Follows commands 25-50% of the time Safety Judgment: Decreased awareness of need for assistance, Decreased awareness of need for safety Awareness of Errors: Decreased awareness of errors Deficits: Decreased awareness of deficits Extremity Assessments: See PT Evaluation flowsheet for Extremity Measurement updates. Balance: Sitting Balance Static Sitting-Level of Assistance: Dependent Skilled Rationale: Verbal cues, Tactile cues, Visual cues, Full extension to upright positioning/posture, Upright gaze/neck extension Sitting Balance Skilled Intervention/Details: Pt sat EOB with dependent A for static sitting balance. Pt demonstrated retropulsion and left lateral lean. verbal/tactile cues required to identify/correct position to midline. PT provided stretch with L cervical rotation. After stretch, pt able to assume midline position intermittently. Mobility Assessment/Intervention: Supine to Sit Mobility [place] Level: Supine->Sit: dependent (less than 25% patient effort) Physical Assist: Supine->Sit: 2 person assist Bed Features/Set-up: Supine->Sit: Head of bed elevated Skilled Rationale: Verbal cues, Technique of activity, Initiation and execution of task Skilled Intervention/Details: Supine->Sit: Required dependent A x2 for management of bilat LEs and trunk. no initation from pt. Sit to Supine Mobility [place] Level: Sit->Supine: dependent (less than 25% patient effort) Physical Assist: Sit->Supine: 2 person assist Bed Features/Set-up: Sit->Supine: Head of bed elevated Skilled Rationale: Verbal cues, Tactile cues, Initiation and execution of task, Technique of activity Skilled Intervention/Details: Sit->Supine: Required dependent A x2 for management of bilat LEs and trunk. no initation from pt. Outcome Score(s): CURRENT [facility] Basic Mobility Inpatient Short Form Turning over in bed: 1 - Total Assistance Sitting/standing from chair: 1 - Total Assistance Moving from lying on back to sittin - Total Assistance Moving to and from bed to chair: 1 - Total Assistance Walk in hospital room: 1 - Total Assistance Climbing 3-5 steps with a railin - Total Assistance CURRENT [facility] Mobility Raw Score: 6 CURRENT [facility] Mobility Functional Limitation/Modifier: 100.00% Currently Impaired in Basic Mobility Currently Impaired in Basic Mobility - CN Interventions: Intervention 1 Intervention Name: EOB strength exercises. Sets/Reps/Duration: 10 reps, 1 set Details: Sitting EOB: L passive knee flexion/extension. R active knee flexion/extension and R active ankle plantarflexion/dorsiflexion. Assessment & Plan: Pt making fair progress with therapy. Treatment focused on sitting balance and LE strength exercises. Con't difficulty activating LLE despite verbal to visually attend to LLE and placing RUE on LLE. Con't treatment will focus on static sitting balance and transfers. Patient Instruction/Education this session: Plan for PT session Plan for next session: continue to progress sitting balance and sit to stand transfers. Acute PT Goals Plan of Care by Regine Livingston, PT at 12/07/2023 3:16 PM Version 1 of 1 Problem: PT - General Goals Goal: Supine <-> Sit Transfers - Patient will perform supine to/from sit transfers with minimal assistance and of 2 people and with use of hospital bed features in order to improve functional mobility and safety. Outcome: Progressing Toward Goal Goal: Sitting Endurance/Balance - Patient will perform seated balance tasks for 10 minutes with minimal assistance and bilateral UE support Outcome: Progressing Toward Goal Goal: Strength - Patient will demonstrate understanding of exercise program. Outcome: Progressing Toward Goal PT treatment consisted of the following to progress towards the above goal(s): PT Evaluation and Treatment Time Therapeutic Exercise Time Entry: 10 Therapeutic Activity Time Entry: 13 Treating Therapist: Danielle Farrell Student PT Additional Details: PT Co-Eval/Treatment Information Co-evaluation/co-treatment performed?: Yes, simultaneous billable skilled care was necessary due to medical complexity and functional deficits Other discipline: OT Rationale for need to co-eval/treat: postural control Co-treatment goal focus: balance, transfer Assisted by during session: Regine Livingston PT PPE used during patient interaction: facemask, gloves Patient location at end of session: bed with head of bed elevated, RN aware Alarms on at end of session: bed alarm, RN aware Needs in reach. Time In: 1023 Time Out: 1046 Total Visit Time: 23 minutes Total Treatment Time (skilled, billable minutes): 23 minutes Upon discontinuation of Acute Care Physical Therapy Services or patient discharge from the hospital this note represents the current Physical Therapy Discharge Summary. Associated attestation - Regine Livingston, PT - 12/07/2023 3:18 PM EST I, Regine Livingston PT, provided direct guidance in the room during this patient care session. I attest that all documentation reflects accurate skilled clinical decisions and judgements. NEUROVASCULAR STROKE SERVICE Daily Progress Note IDENTIFYING INFORMATION Aroldo Vargas MR# [id number] 12/07/2023 HISTORY OF PRESENT ILLNESS Aroldo Vargas is a 78 y.o. female with PMH significant for HTN, HLD, CAD, dementia, TIA who presented to an [facility] after family found her with L hemiplegia, L facial droop and slurred speech. Seen on tele, NIHSS 8. CTA showed R ICA occlusion. She was out of the window for IV thrombolytics. Transferred to [facility] for further management. LKW 2145 on 11/28. On arrival to [facility], NIHSS 16. CTH with evolving R MCA territory stroke. CTP with R MCA mismatch. mRS 2 at baseline. 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 INTERVAL HISTORY 11/30: Brain MRI pending. 12/05: Transfer out of [facility]. 12/06: Dobbhoff dislodged overnight, replaced, restrained. Consult ID for positive blood cultures, repeat cultures. Daughter updated at bedside. UE venous duplex. 12/07: atbx complete, NETBACKUP ADMINISTRATOR to re-eval, GI consulted for PEG planning PHYSICAL EXAM Gen: somnolent, NAD HEENT: normocephalic, no scalp lesions or tenderness Neck: trachea midline CV: +S1S2, RRR, no m/r/g Lungs: LCTA bilaterally with equal chest rise Abd: soft, nontender, nondistended, +BS x4 quadrants Extrem: Warm and well perfused, bilateral arms red and swollen Neuro: Opens eyes to speech, follows simple commands, incomprehensible speech CN II - Does not blink to threat on left CN II/III - PERRLA CN III/IV/ - Right gaze deviation CN V - CN VII - Left facial droop CN VIII - Hearing intact CN X - Cough present CN XI - Left shoulder weakness CN XII - MOTOR EXAMINATION: Left hemiplegia NIHSS 12/07/2023 Provider NIH Stroke Scale NIH Interval (Provider): daily NIH Level of Conciousness (Provider): 0 NIH LOC Questions (Provider): 2 NIH LOC Commands (Provider): 1 NIH Best Gaze (Provider): 1 NIH Visual (Provider): 2 NIH Facial Palsy (Provider): 2 NIH Left Arm Motor (Provider): 4 NIH Right Arm Motor (Provider): 0 NIH Left Leg Motor (Provider): 4 NIH Right Leg Motor (Provider): 2 NIH Limb Ataxia (Provider): 0 NIH Sensory (Provider): 2 NIH Best Language (Provider): 1 NIH Dysarthria (Provider): 1 NIH Extinction and Inattention (Provider): 1 NIH Total Score (Provider): 23 ASSESSMENT AND PLAN Neuro: Acute right hemispheric strokes, Right ICA/MCA occlusion s/p TICI 2b revascularization: CTH: Evolving R MCA territory stroke, no hemorrhage [facility] CTA brain/neck: R ICA/M1 occlusion CTP: Large R MCA mismatch with small right basal ganglia stroke MRI brain Acute infarcts in the right RUBY and MCA territories with hemorrhagic transformation in the right basal ganglia and small IVH TTE: EF >70% EKG on admission: NSR, QTc 429 LDL 130 HgbA1c 5.3 Repeat CTA brain/neck: ICA now open but there is occlusion of right M1-M2 junction. -Stroke Etiology (TOAST Criteria): Cryptogenic -Antiplatelet plan: Aspirin 81 mg daily -Statin therapy: Lipitor 40 mg daily -Blood Pressure goal: SBP <220 -Mobile cardiac telemetry for 30 days at discharge Ischemic Stroke Core Measures -NIHSS on admission 16 -Patient has been started on Mechanical (SCD's) and Pharmacological (SQ heparin/Lovenox) DVT prophylaxis. -Antiplatelet therapy has been initiated, Aspirin 81mg daily. -Anticoagulation therapy was not indicated for this patient -Patients LDL 130 and HgbA1c 5.3 were checked and the patient will be discharged on Atorvastatin daily. -Dysphagia screening ordered, and will be completed prior to patient receiving oral intake. -Stroke education booklet has been ordered and will be provided by the RN that includes both written and verbal education to the patient and family regarding ischemic strokes. We have reviewed the patient's personal modifiable risk factors including: HTN, HLD as well as education on reducing these risk factors -Patient is being assessed for Rehab by PT/OT/Speech and PM&R if indicated. HTN, POA: Nicardipine stopped 12/04 -Continue lisinopril 40 mg daily, increased 12/05 -Increase Carvedilol 12.5 mg every 12 hours on 12/06 Dysphagia: Seen by speech, last 12/05, recommend NPO -Tube feeds via Dobbhoff -Discussed PEG tube with daughter on 12/06 -Speech re-eval 12/07 pending staff availability, GI consulted for PEG planning given high likelihood patient will require PEG Likely Aspiration pneumonia: -completed 5 days ceftriaxone 2 gm daily on 12/07 Bacteremia: Blood cultures from 12/02 and 12/04 show staphylococcus hominis in 1/2 sets -Consult ID: suspect contaminate, repeat blood cultures pending -Complete ceftriaxone 5 days as above Bilateral UE swelling: -BUE duplex negative for DVT, formal report PENDING Other problems: Complexity. Obesity Body mass index is 37.02 kg/m . - Follow with PCP for dietary and lifestyle modifications. Disposition: Aroldo Vargas will be discharged when medically ready. Felix Maharaj, ELECTRICAL CONTINUITY TESTER-COLLAR SETTER 12/07/2023 11:37 AM VITAL SIGNS Temp: [97.9 F (36.6 C)-98.5 F (36.9 C)] 98 F (36.7 C) Pulse (Heart Rate): [59-89] 89 Resp Rate: [18-37] 30 BP: (109-186)/(53-84) 111/56 O2 Sat (%): [94 %-100 %] 97 % Oxygen Therapy: Oxygen Therapy O2 Sat (%): 97 % O2 Device: nasal cannula Flow (L/min): 2 Intake/Output: Intake/Output Summary (Last 24 hours) at 12/07/2023 1137 Last data filed at 12/07/2023 0820 Gross per 24 hour Intake 1200.9 ml Output 650 ml Net 550.9 ml LABS/CULTURES Lab Results Component Value Date WBC 13.32 (H) 12/07/2023 HGB 9.7 (L) 12/07/2023 HCT 30.6 (L) 12/07/2023 PLATELET 340 12/07/2023 MCV 96.8 12/07/2023 Lab Results Component Value Date SODIUM 136 12/07/2023 POTASSIUM 4.3 12/07/2023 CHLORIDE 103 12/07/2023 CO2 26 12/07/2023 BUN 31 (H) 12/07/2023 CREATSERUM 0.49 (L) 12/07/2023 GLUCOSE 132 (H) 12/07/2023 Lab Results Component Value Date CHOLESTEROL 186 11/30/2023 TRIG 86 11/30/2023 HDL 39 (L) 11/30/2023 LDLCALC 130 (H) 11/30/2023 Lab Results Component Value Date HGBA1C 5.3 11/30/2023 Lab Results Component Value Date ALBUMIN 3.4 (L) 11/30/2023 , Lab Results Component Value Date CPK 82 11/29/2023 IMAGING/DIAGNOSTIC STUDIES MEDICATIONS aspirin 81 mg Per NG tube Daily Atorvastatin 40 mg Per NG tube QHS carveDILOL 12.5 mg Per NG tube Q12HNS enoxaparin 40 mg Subcutaneous Daily Lisinopril 40 mg Per NG tube Daily Polyethylene glycol 17 g Per NG tube Q12H Senna 17.2 mg Per NG tube Q12H NEUROVASCULAR STROKE SERVICE Daily Progress Note IDENTIFYING INFORMATION Aroldo Vargas MR# [id number] 12/06/2023 HISTORY OF PRESENT ILLNESS Aroldo Vargas is a 78 y.o. female with PMH significant for HTN, HLD, CAD, dementia, TIA who presented to an [facility] after family found her with L hemiplegia, L facial droop and slurred speech. Seen on tele, NIHSS 8. CTA showed R ICA occlusion. She was out of the window for IV thrombolytics. Transferred to [facility] for further management. LKW 2145 on 11/28. On arrival to [facility], NIHSS 16. CTH with evolving R MCA territory stroke. CTP with R MCA mismatch. mRS 2 at baseline. 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 INTERVAL HISTORY 11/30: Brain MRI pending. 12/05: Transfer out of [facility]. 12/06: Dobbhoff dislodged overnight, replaced, restrained. Consult ID for positive blood cultures, repeat cultures. Daughter updated at bedside. UE venous duplex. PHYSICAL EXAM Gen: Drowsy, NAD HEENT: normocephalic, no scalp lesions or tenderness Neck: trachea midline CV: +S1S2, RRR, no m/r/g Lungs: LCTA bilaterally with equal chest rise Abd: soft, nontender, nondistended, +BS x4 quadrants Extrem: Warm and well perfused, bilateral arms red and swollen Neuro: Opens eyes to speech, follows simple commands, incomprehensible speech CN II - Does not blink to threat on left CN II/III - PERRLA CN III/IV/ - Right gaze deviation CN V - CN VII - Left facial droop CN VIII - Hearing intact CN X - Cough present CN XI - Left shoulder weakness CN XII - MOTOR EXAMINATION: Left hemiplegia NIHSS 12/06/2023 Provider NIH Stroke Scale NIH Interval (Provider): daily NIH Level of Conciousness (Provider): 0 NIH LOC Questions (Provider): 2 NIH LOC Commands (Provider): 1 NIH Best Gaze (Provider): 1 NIH Visual (Provider): 2 NIH Facial Palsy (Provider): 2 NIH Left Arm Motor (Provider): 4 NIH Right Arm Motor (Provider): 0 NIH Left Leg Motor (Provider): 4 NIH Right Leg Motor (Provider): 2 NIH Limb Ataxia (Provider): 0 NIH Sensory (Provider): 2 NIH Best Language (Provider): 1 NIH Dysarthria (Provider): 1 NIH Extinction and Inattention (Provider): 1 NIH Total Score (Provider): 23 ASSESSMENT AND PLAN Neuro: Acute right hemispheric strokes, Right ICA/MCA occlusion s/p TICI 2b revascularization: CTH: Evolving R MCA territory stroke, no hemorrhage OSH CTA brain/neck: R ICA/M1 occlusion CTP: Large R MCA mismatch with small right basal ganglia stroke MRI brain Acute infarcts in the right RUBY and MCA territories with hemorrhagic transformation in the right basal ganglia and small IVH TTE: EF >70% EKG on admission: NSR, QTc 429 LDL 130 HgbA1c 5.3 Repeat CTA brain/neck: ICA now open but there is occlusion of right M1-M2 junction. -Stroke Etiology (TOAST Criteria): Cryptogenic -Antiplatelet plan: Aspirin 81 mg daily -Statin therapy: Lipitor 40 mg daily -Blood Pressure goal: SBP <220 -Mobile cardiac telemetry for 30 days at discharge Ischemic Stroke Core Measures -NIHSS on admission 16 -Patient has been started on Mechanical (SCD's) and Pharmacological (SQ heparin/Lovenox) DVT prophylaxis. -Antiplatelet therapy has been initiated, Aspirin 81mg daily. -Anticoagulation therapy was not indicated for this patient -Patients LDL 130 and HgbA1c 5.3 were checked and the patient will be discharged on Atorvastatin daily. -Dysphagia screening ordered, and will be completed prior to patient receiving oral intake. -Stroke education booklet has been ordered and will be provided by the RN that includes both written and verbal education to the patient and family regarding ischemic strokes. We have reviewed the patient's personal modifiable risk factors including: HTN, HLD as well as education on reducing these risk factors -Patient is being assessed for Rehab by PT/OT/Speech and PM&R if indicated. HTN, POA: Nicardipine stopped 12/04 -Continue lisinopril 40 mg daily, increased 12/05 -Increase Carvedilol 12.5 mg every 12 hours on 12/06 Dysphagia: Seen by speech, last 12/05, recommend NPO -Tube feeds via Dobbhoff -Speech re-eval -Discussed PEG tube with daughter on 12/06, follow up if remains NPO Likely Aspiration pneumonia: -Continue ceftriaxone 2 gm daily, started on 12/02 Bacteremia: Blood cultures from 12/02 and 12/04 show staphylococcus hominis in 1/2 sets -Consult ID -Repeat blood cultures -Continue ceftriaxone as above Bilateral UE swelling: -Check venous duplex Other problems: Complexity. Obesity Body mass index is 37.02 kg/m . - Follow with PCP for dietary and lifestyle modifications. Disposition: Aroldo Vargas will be discharged when medically ready. Haris Chakraborty APRN-COLLAR SETTER 12/06/2023 2:31 PM VITAL SIGNS Temp: [97.3 F (36.3 C)-98.4 F (36.9 C)] 97.9 F (36.6 C) Pulse (Heart Rate): [59-81] 66 Resp Rate: [18-42] 20 BP: (109-194)/(53-83) 109/53 O2 Sat (%): [93 %-100 %] 100 % Oxygen Therapy: Oxygen Therapy O2 Sat (%): 100 % O2 Device: nasal cannula Flow (L/min): 2 Intake/Output: Intake/Output Summary (Last 24 hours) at 12/06/2023 1431 Last data filed at 12/06/2023 0844 Gross per 24 hour Intake 179 ml Output 305 ml Net -126 ml LABS/CULTURES Lab Results Component Value Date WBC 15.21 (H) 12/06/2023 HGB 10.0 (L) 12/06/2023 HCT 32.7 (L) 12/06/2023 PLATELET 286 12/06/2023 MCV 99.4 (H) 12/06/2023 Lab Results Component Value Date SODIUM 140 12/06/2023 POTASSIUM 4.8 12/06/2023 CHLORIDE 105 12/06/2023 CO2 28 12/06/2023 BUN 34 (H) 12/06/2023 CREATSERUM 0.48 (L) 12/06/2023 GLUCOSE 95 12/06/2023 Lab Results Component Value Date CHOLESTEROL 186 11/30/2023 TRIG 86 11/30/2023 HDL 39 (L) 11/30/2023 LDLCALC 130 (H) 11/30/2023 Lab Results Component Value Date HGBA1C 5.3 11/30/2023 Lab Results Component Value Date ALBUMIN 3.4 (L) 11/30/2023 , Lab Results Component Value Date CPK 82 11/29/2023 IMAGING/DIAGNOSTIC STUDIES MEDICATIONS aspirin 81 mg Per NG tube Daily Atorvastatin 40 mg Per NG tube QHS carveDILOL 12.5 mg Per NG tube Q12HNS [id number] 2 g Intravenous Q24H enoxaparin 40 mg Subcutaneous Daily Lisinopril 40 mg Per NG tube Daily Polyethylene glycol 17 g Per NG tube Q12H Senna 17.2 mg Per NG tube Q12H Acute Physical Therapy Treatment Prior to Admission AMPA score(s): PRIOR LEVEL AM-PAC Activity Raw Score: 24 Current AM-PAC score(s): CURRENT AM-PAC Mobility Raw Score: 6 Based on the above AM-PAC score(s) and PT clinical judgment, patient is a good candidate for discharge to [facility] Facility Barriers to discharge home: Patient needs assistance with functional mobility Mobility equipment available at home: 2 wheeled walker, none used ADL equipment available at home: Equipment needed for discharge: to be determined Current therapy frequency recommendation in acute: Therapy Frequency: 5 times a week Precautions and Weightbearing Status: Existing Precautions/Restrictions: fall Telemetry, Tube feed Patient Safety Communication Prior to Visit: Nursing Subjective: Pt agreeable to participate, left inattention Pain: General Pain Documentation (Adult, OB, Peds) Presence of Pain: denies pain/discomfort Presence of Pain Score (Auto-calculated): 0 Objective/Observation: Vitals/Vitals Responses to Treatment: WFL O2 Device: room air Cognition Overall Cognitive Status: Impaired Arousal/Alertness: Delayed responses to stimuli Orientation Level: Oriented to person Following Commands: Follows one step commands with repetition, Follows one step commands with increased time, Follows commands 25-50% of the time Safety Judgment: Decreased awareness of need for assistance, Decreased awareness of need for safety Extremity Assessments: See PT Evaluation flowsheet for Extremity Measurement updates. Skin and Edema: Balance: Sitting Balance Static Sitting-Level of Assistance: Dependent Skilled Rationale: Positioning, Sequencing, Hand placement, Verbal cues Sitting Balance Skilled Intervention/Details: Pt completed EOB sitting x 16-18 minutes with dependent assist, brief periods of max with patient attempting to correct to midline but unable to without assist. Pt with left lateral leaning, pt with right head turn and gaze peference Mobility Assessment/Intervention: Supine to Sit Mobility [place] Level: Supine->Sit: dependent (less than 25% patient effort) Physical Assist: Supine->Sit: 2 person assist Bed Features/Set-up: Supine->Sit: Head of bed elevated, Use of bed rail Skilled Rationale: Positioning, Sequencing, Hand placement, Verbal cues Sit to Supine Mobility [place] Level: Sit->Supine: dependent (less than 25% patient effort) Physical Assist: Sit->Supine: 2 person assist Bed Features/Set-up: Sit->Supine: Flat Skilled Rationale: Positioning, Sequencing, Hand placement, Verbal cues Transfer Assessment/Intervention: Gait/Functional Mobility Assessment/Intervention: Stairs Assessment/Intervention: Outcome Score(s): CURRENT [facility] Basic Mobility Inpatient Short Form Turning over in bed: 1 - Total Assistance Sitting/standing from chair: 1 - Total Assistance Moving from lying on back to sittin - Total Assistance Moving to and from bed to chair: 1 - Total Assistance Walk in hospital room: 1 - Total Assistance Climbing 3-5 steps with a railin - Total Assistance CURRENT [facility] Mobility Raw Score: 6 CURRENT [facility] Mobility Functional Limitation/Modifier: 100.00% Currently Impaired in Basic Mobility Currently Impaired in Basic Mobility - CN Interventions: Intervention 1 Intervention Name: Neck stretching Sets/Reps/Duration: PT completed passive prolong stretch to neck due to right head turn preference. Pt with fair tolerance of neck stretching requiring frequent rest breaks Assessment & Plan: Pt making fair progress toward therapy goals, continues to require same assist and with left inattention Patient Instruction/Education this session: Role of PT and PT plan of care Plan for next session: Progress sitting balance and left visual scanning Acute PT Goals Plan of Care by Estefani Duarte PT at 12/05/2023 2:40 PM Version 1 of 1 Problem: PT - General Goals Goal: Supine <-> Sit Transfers - Patient will perform supine to/from sit transfers with minimal assistance and of 2 people and with use of hospital bed features in order to improve functional mobility and safety. Outcome: Progressing Toward Goal Goal: Sitting Endurance/Balance - Patient will perform seated balance tasks for 10 minutes with minimal assistance and bilateral UE support Outcome: Progressing Toward Goal Goal: Sit <-> Stand Transfers - Patient will perform sit to/from stand transfers with moderate assistance and of 2 people and least restrictive device in order to improve functional mobility and safety. Outcome: Progressing Toward Goal Goal: Strength - Patient will demonstrate understanding of exercise program. Outcome: Progressing Toward Goal PT treatment consisted of the following to progress towards the above goal(s): PT Evaluation and Treatment Time Neuromuscular Re-Education Time Entry: 23 Treating Therapist: Estefani Duarte PT Additional Details: PT Co-Eval/Treatment Information Co-evaluation/co-treatment performed?: Yes, simultaneous billable skilled care was necessary due to medical complexity and functional deficits Other discipline: OT Rationale for need to co-eval/treat: cognitive issues, coordination issues Co-treatment goal focus: balance, mobility PPE used during patient interaction: facemask, gloves Patient location at end of session: bed with head of bed elevated Alarms on at end of session: bed alarm Needs in reach. Time In: 1405 Time Out: 1428 Total Visit Time: 23 minutes Total Treatment Time (skilled, billable minutes): 23 minutes Upon discontinuation of Acute Care Physical Therapy Services or patient discharge from the hospital this note represents the current Physical Therapy Discharge Summary. Acute Occupational Therapy Treatment Prior to Admission AM-PAC Score: PRIOR LEVEL AM-PAC Activity Raw Score: 24 Current AM-PAC score(s): CURRENT AM-PAC Activity Raw Score: 7 Based on the above AM-PAC score(s), and OT clinical judgment, discharge destination recommendation is: [facility] Facility Barriers to discharge home: Patient needs assistance with ADLs, Patient needs assistance with IADLs (see note below), Cognitive impairments that impact safety (see note below) Mobility equipment available at home: 2 wheeled walker, none used ADL equipment available at home: Equipment recommendations for discharge: to be determined Current therapy frequency recommendation(s) in acute: 5 times a week Precautions and Weightbearing Status: OT Existing Precautions/Restrictions: fall Telemetry, Tube feed Patient Safety Communication Prior to Visit: Nursing Subjective: Pt agreeable to OT session, not tracking to or past midline despite max cues Pain: General Pain Documentation (Adult, OB, Peds) Presence of Pain: denies pain/discomfort Presence of Pain Score (Auto-calculated): 0 Objective/Observation: Vitals/Vitals Responses to Treatment: VSS O2 Device: room air Cognition Overall Cognitive Status: Impaired Arousal/Alertness: Delayed responses to stimuli Orientation Level: Oriented to person Following Commands: Follows one step commands with increased time, Follows one step commands with repetition Safety Judgment: Decreased awareness of need for assistance, Decreased awareness of need for safety Awareness of Errors: Decreased awareness of errors Cognition Comments: unable to track to midline or left despite repeated and max verbal and visual and tactile cues throughout session. Pt with poor insight into impairments and limited ability to correct posture and visual attention ADL Assessment/Intervention: ADLs: Eating Assistance: Grooming Assistance: Moderate Grooming Location: edge of bed Grooming Deficit: Activity tolerance, Generalized weakness, Balance, Wash/dry hands Grooming Skilled Rationale (Verbal/Tactile/Visual/Demonstration): Setup, Supervision, Facilitate positioning Grooming Intervention/Details: Pt challenged to identify ADL objects. Pt identifies washcloth as "somebody's drawers". With cues for washcloth able to take from therapist with assist to guide hand to target and wash face. Pt able to apply lip balm with initiation cues Bathing Assistance: UE Dressing Assistance: LE Dressing Assistance: Toilet Assistance: Extremity Assessments: See OT Evaluation flowsheet for Extremity Measurement updates. Balance: Sitting Balance Static Sitting-Level of Assistance: Dependent Skilled Rationale: Tactile cues, Verbal cues, Positioning, Full extension to upright positioning/posture, Finding/maintaining midline positioning Sitting Balance Skilled Intervention/Details: Pt participated in EOB sitting approx 15-17 min with dep A for sitting balance. Pt pushing through RUE towards left and with retropulsive LOB. Pt unable to correct posture despite repeated cues. When balance was cahllenged, pt able to grasp therapist hand and attempt to pull but not able to correct posture. Pt with right lateral head turn and gaze preference. Focused throughout on giving pt functional objects and use of mirror to track towards midline. Despite this and tactile assist on head to turn head left, unable to track to midline. Pt with difficulty with visual perceptual deficits and with poor accuracy when reaching for targets. Limited assess of vision due to left neglect Skin and Edema: Mobility Assessment/Intervention: Scooting Bridging Mobility [place] Level: Scooting/Bridging: dependent (less than 25% patient effort) Physical Assist: Scooting/Bridgin person assist Bed Features/Set-up: Scooting/Bridging: Flat Skilled Rationale: Verbal cues Skilled Intervention/Details: Scooting/Bridging: boost in bed Supine to Sit Mobility [place] Level: Supine->Sit: dependent (less than 25% patient effort) Physical Assist: Supine->Sit: 2 person assist Bed Features/Set-up: Supine->Sit: Head of bed elevated Skilled Rationale: Verbal cues Skilled Intervention/Details: Supine->Sit: no initiation despite max cues Sit to Supine Mobility [place] Level: Sit->Supine: dependent (less than 25% patient effort) Physical Assist: Sit->Supine: 2 person assist Bed Features/Set-up: Sit->Supine: Head of bed elevated Skilled Rationale: Verbal cues Transfer Assessment/Intervention: Functional Mobility: Outcome Score(s): CURRENT [facility] Daily Activity Inpatient Short Form Putting on/Taking Off Lower Body Clothin - Total Assistance Bathin - Total Assistance Toiletin - Total Assistance Putting on/Taking Off Upper Body Clothin - Total Assistance Groomin - A Lot of Assistance Eatin - Total Assistance CURRENT [facility] Activity Raw Score: 7 CURRENT [facility] Activity Functional Limitation/Modifier: 92.44% Currently Impaired in Daily Activity - CM Assessment & Plan: Pt demonstrates increased sitting tolerance, participation in ADLs EOB from previous session and is making fair progress towards goals. Pt continues to present with deficits in balance, cognition, visual attention, safety and insight and requires 1-2 person assist for ADLs and functional transfer and mobility tasks. Pt requires continued skilled OT services to address functional deficits and maximize safety and independence in ADLs for return home with family safely. Patient Instruction/Education this session: progression of treatment, cues for visual tracking past midline Plan for next session: increased sitting balance and posture, visual scanning to left Acute OT Goals Plan of Care by Desirae Quintero OT at 12/05/2023 2:30 PM Version 1 of 1 Problem: OT - Transfers Goal: Transfers Supine -> Sit - Patient will perform supine to/from sit with flat bed & no rail and maximal assistance to improve participation in ADLs. Outcome: Ongoing Problem: OT - Balance Goal: Balance - Seated - Patient will perform 15 minutes of functional task in sitting with moderate assistance and fair balance to promote safety during self-care activities. Outcome: Ongoing Problem: OT - Vision Goal: Visual Tracking - Patient will track past midline to left during session with no greater than mod cues to attend to familiar object/person for ADL participation in 5/5 trials. Outcome: Ongoing Problem: OT - ADLs Goal: Grooming - Patient will complete grooming edge of bed with minimal assistance for improved ability to safely complete ADLs. Outcome: Progressing Toward Goal Problem: OT - Cognition Goal: Cognition Simple ADL - Patient will demonstrate improved cognition, completing simple ADL task for 10 minutes with no greater than min cues required to maintain attention. Outcome: Progressing Toward Goal OT treatment consisted of the following to work and progress towards the above goal(s): OT Evaluation and Treatment Time Self Care/Home Management (ADLs) Time Entry: 14 Neuromuscular Re-Education Time Entry: 10 Treating Therapist: Desirae Quintero OT Additional Details: OT Co-Eval/Treatment Information Co-evaluation/co-treatment performed?: Yes, simultaneous billable skilled care was necessary due to medical complexity and functional deficits Other discipline: PT Rationale for need to co-eval/treat: cognitive issues, postural control Co-treatment goal focus: self-care PPE used during patient interaction: facemask, gloves Patient location at end of session: bed with head of bed elevated Alarms on at end of session: RN aware Needs in reach. Time In: 1406 Time Out: 1430 Total Visit Time: 24 minutes Total Treatment Time (skilled, billable minutes): 24 minutes Upon discontinuation of Acute Care Occupational Therapy Services or patient discharge from the hospital this note represents the current Occupational Therapy Discharge Summary. Placement Plan Expected Discharge Date: tbd Referred Level of Care: [facility] Facility Barriers: Facility Acceptance, medical stability Current Referrals and Status 1. [facility]: Viewed 2. [facility]: Denied (bed availability) Spoke with a outbound sales representative from [facility], outbound sales representative stated that they do not have bed availability at this time, however might have availability starting next week. Requested until tomorrow to check bed availability, CM will follow up tomorrow to see if [facility] will have availability starting next week. [facility] is patient's son's (HCPOA) first choice of facility. Makenzie Flores RN, BSN Clinical Strategic Partnership Representative [facility] NEUROVASCULAR STROKE SERVICE Daily Progress Note IDENTIFYING INFORMATION Aroldo Vargas MR# [id number] 12/05/2023 HISTORY OF PRESENT ILLNESS Aroldo Vargas is a 78 y.o. female with PMH significant for HTN, HLD, CAD, dementia, TIA who presented to an [facility] after family found her with L hemiplegia, L facial droop and slurred speech. Seen on tele, NIHSS 8. CTA showed R ICA occlusion. She was out of the window for IV thrombolytics. Transferred to [facility] for further management. LKW 2145 on 11/28. On arrival to [facility], NIHSS 16. CTH with evolving R MCA territory stroke. CTP with R MCA mismatch. mRS 2 at baseline. 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 INTERVAL HISTORY 11/30: Brain MRI pending. 12/05: Transfer out of [facility]. PHYSICAL EXAM Gen: Drowsy, NAD HEENT: normocephalic, no scalp lesions or tenderness Neck: trachea midline CV: +S1S2, RRR, no m/r/g Lungs: LCTA bilaterally with equal chest rise Abd: soft, nontender, nondistended, +BS x4 quadrants Extrem: Warm and well perfused, no edema Neuro: Opens eyes to speech, follows simple commands, incomprehensible speech CN II - Does not blink to threat on left CN II/III - PERRLA CN III/IV/ - Right gaze deviation CN V - CN VII - Left facial droop CN VIII - Hearing intact CN X - Cough present CN XI - Left shoulder weakness CN XII - MOTOR EXAMINATION: Left hemiplegia NIHSS 12/05/2023 Provider NIH Stroke Scale NIH Interval (Provider): daily NIH Level of Conciousness (Provider): 0 NIH LOC Questions (Provider): 2 NIH LOC Commands (Provider): 0 NIH Best Gaze (Provider): 1 NIH Visual (Provider): 2 NIH Facial Palsy (Provider): 2 NIH Left Arm Motor (Provider): 4 NIH Right Arm Motor (Provider): 0 NIH Left Leg Motor (Provider): 4 NIH Right Leg Motor (Provider): 2 NIH Limb Ataxia (Provider): 0 NIH Sensory (Provider): 2 NIH Best Language (Provider): 1 NIH Dysarthria (Provider): 1 NIH Extinction and Inattention (Provider): 1 NIH Total Score (Provider): 22 ASSESSMENT AND PLAN Neuro: Acute right hemispheric strokes, Right ICA/MCA occlusion s/p TICI 2b revascularization: CTH: Evolving R MCA territory stroke, no hemorrhage OSH CTA brain/neck: R ICA/M1 occlusion CTP: Large R MCA mismatch with small right basal ganglia stroke MRI brain Acute infarcts in the right RUBY and MCA territories with hemorrhagic transformation in the right basal ganglia and small IVH TTE: EF >70% EKG on admission: NSR, QTc 429 LDL 130 HgbA1c 5.3 -Stroke Etiology (TOAST Criteria): Repeat CTA pending -Antiplatelet plan: Aspirin 81 mg daily -Statin therapy: Lipitor 40 mg daily -Blood Pressure goal: SBP <220 Ischemic Stroke Core Measures -NIHSS on admission 16 -Patient has been started on Mechanical (SCD's) and Pharmacological (SQ heparin/Lovenox) DVT prophylaxis. -Antiplatelet therapy has been initiated, Aspirin 81mg daily. -Anticoagulation therapy was not indicated for this patient -Patients LDL 130 and HgbA1c 5.3 were checked and the patient will be discharged on Atorvastatin daily. -Dysphagia screening ordered, and will be completed prior to patient receiving oral intake. -Stroke education booklet has been ordered and will be provided by the RN that includes both written and verbal education to the patient and family regarding ischemic strokes. We have reviewed the patient's personal modifiable risk factors including: HTN, HLD as well as education on reducing these risk factors -Patient is being assessed for Rehab by PT/OT/Speech and PM&R if indicated. HTN, POA: Nicardipine stopped 12/04 -Continue lisinopril 40 mg daily, increased 12/05 -Carvedilol 6.25 mg every 12 hours Dysphagia: Seen by speech, last 12/05, recommend NPO -Tube feeds via Dobbhoff -Speech re-eval -Discuss PEG tube with family if remains NPO Likely Aspiration pneumonia: -Continue ceftriaxone 2 gm daily, started on 12/02 Other problems: Complexity. Obesity Body mass index is 37.02 kg/m . - Follow with PCP for dietary and lifestyle modifications. Disposition: Aroldo Vargas will be discharged when medically ready. Haris Chakraborty APRN-COLLAR SETTER 12/05/2023 2:03 PM VITAL SIGNS Temp: [97.6 F (36.4 C)-98.5 F (36.9 C)] 97.6 F (36.4 C) Pulse (Heart Rate): [62-93] 77 Resp Rate: [20-35] 35 BP: (112-183)/(55-86) 136/66 O2 Sat (%): [93 %-97 %] 96 % Oxygen Therapy: Oxygen Therapy O2 Sat (%): 96 % O2 Device: room air Intake/Output: Intake/Output Summary (Last 24 hours) at 12/05/2023 1403 Last data filed at 12/05/2023 1200 Gross per 24 hour Intake 1897.09 ml Output 840 ml Net 1057.09 ml LABS/CULTURES Lab Results Component Value Date WBC 16.35 (H) 12/05/2023 HGB 10.7 (L) 12/05/2023 HCT 34.1 (L) 12/05/2023 PLATELET 300 12/05/2023 MCV 97.2 12/05/2023 Lab Results Component Value Date SODIUM 142 12/05/2023 POTASSIUM 4.3 12/05/2023 CHLORIDE 109 (H) 12/05/2023 CO2 27 12/05/2023 BUN 36 (H) 12/05/2023 CREATSERUM 0.49 (L) 12/05/2023 GLUCOSE 136 (H) 12/05/2023 Lab Results Component Value Date CHOLESTEROL 186 11/30/2023 TRIG 86 11/30/2023 HDL 39 (L) 11/30/2023 LDLCALC 130 (H) 11/30/2023 Lab Results Component Value Date HGBA1C 5.3 11/30/2023 Lab Results Component Value Date ALBUMIN 3.4 (L) 11/30/2023 , Lab Results Component Value Date CPK 82 11/29/2023 IMAGING/DIAGNOSTIC STUDIES MEDICATIONS aspirin 81 mg Per NG tube Daily Atorvastatin 40 mg Per NG tube QHS carveDILOL 6.25 mg Per NG tube Q12HNS cefTRIAXone 2 g Intravenous Q24H enoxaparin 40 mg Subcutaneous Daily Lisinopril 40 mg Per NG tube Daily Polyethylene glycol 17 g Per NG tube Q12H Senna 17.2 mg Per NG tube Q12H Acute Care Speech Language Pathology Treatment Diet Recommendations: Recommended Method of Nutrition: NPO Recommended Medication Administration (as appropriate per MD): Non-Oral Type of Cues/Supervision: 1:1 supervision Assistance: nurse/aide, family *Consider ice chips following oral care, given strict 1:1 RN supervision to assist in secretions clearance and reduce risk of disuse atrophy. *To prevent potential development of aspiration pneumonia/nosocomial infections, RECOMMEND: Oral care routine q4h and HOB upright as tolerated Best mode of Communication: verbal Communication Strategies: allow extra time, reduce distractions Discharge Recommendations: Based on the below outcome measures/assessment score(s) and NETBACKUP ADMINISTRATOR clinical judgment, discharge destination recommendation is: [facility] Barriers to discharge home: Cognitive impairments that impact safety and independence, 1:1 assist needed for IADL's including medication management and finances Supporting factors for discharge setting: Impaired swallow function limiting nutritional status and safety with oral intake, Impaired cognitive skills limiting safety/insight Acute NETBACKUP ADMINISTRATOR Outcomes Tracking Communicate basic wants and needs?: yes Demo insight/appreciation of deficits?: no Complete basic problem solving?: no Current therapy frequency recommendation in acute: Speech/Lang/Cog Therapy Frequency: 3 times a week Swallow Therapy Frequency: 5 times a week Clinical Impression: Lethargic this date compared to yesterday's session, required increased verbal + tactile cues and did not respond consistently to cues this date. Ongoing impaired acceptance by straw with functional acceptance by tsp. Impaired labial seal with anterior spillage, oral pocketing. She appeared to initiate a pharyngeal swallow with overt coughs in 50% of thin liquids concerning for aspiration (eyes watering, increased WoB). Given increased WoB and lethargy, fewer trials provided this date. Subjective information: Lethargic compared to yesterday's session requiring increased cues to alert/engage. Pain: Nonverbal indicator not present Precautions: Patient Safety Communication Prior to Visit: Nursing Lines/Tubes/Drains (Rehab Status): Telemetry, Tube feed Existing Precautions/Restrictions: fall, NPO Respiratory Status: O2 Sat (%): 93 % (12/05 1200) O2 Device: room air (12/05 0400) Acute NETBACKUP ADMINISTRATOR Goals Plan of Care by AMADO Solis at 12/05/2023 12:07 PM Version 1 of 1 Problem: Dysphagia Goal: Ongoing Assessment - Patient will participate in ongoing assessment by accepting various PO consistency trials with appropriate participation/oral acceptance and no significant respiratory complications to determine readiness for po diet vs instrumental Addressed via ice x5, water via tsp x5 and then pipette to facilitate acceptance x5. Unable to fade this support this session which was a decrease from prior session. Increased environmental cues, upright positioning, oral care, personal care were ineffective to support her engagement this date. Functional acceptance of puree x4 before lethargy was a barrier again. Therefore, discontinued at this time. Outcome: Ongoing Patient Instruction/Education this session: Limited d/t lethargy this date Plan for next session: bolus challenge trials NETBACKUP ADMINISTRATOR Outcomes: FOIS2 Speech Language Pathologist: AMADO Solis Time In: 1050 Time Out: 1110 Total Visit Time: 20 minutes Total Treatment Time (skilled, billable minutes): 20 minutes Non-billable assistance during session: na Assisted by during session: na PPE used during patient interaction: facemask, gloves Patient location/status at end of session: bed with head of bed elevated Patient alarms at end of session: none altered Needs in reach. NETBACKUP ADMINISTRATOR Evaluation and Treatment Time Swallowing Dysfunction Treatment 00616: 20 Upon discontinuation of Acute Care Speech Therapy Services or patient discharge from the hospital this note represents the current Speech Therapy Discharge Summary Neurocritical Care Attending Note Patient Name: Aroldo Vargas : 12/05/2023 CC: ischemic stroke Neurosynopsis: 78 yo F with a hx of HTN, CAD, HLD who presented with acute L sided weakness and facial droop. Outside the window for lytics. CTA revealed long segment occlusion of R ICA to R M2 s/p MT with TICI2B revascularization 24 hour events: NO acute overnight events GTT: none Vitals: Temp: [97.6 F (36.4 C)-98.6 F (37 C)] 97.8 F (36.6 C) Pulse (Heart Rate): [62-93] 68 Resp Rate: [20-34] 22 BP: (112-183)/(56-86) 132/63 O2 Sat (%): [93 %-97 %] 96 % I/O: Intake/Output Summary (Last 24 hours) at 12/05/2023 0950 Last data filed at 12/05/2023 0838 Gross per 24 hour Intake 1799.08 ml Output 900 ml Net 899.08 ml Exam: Gen: NAD, appears comfortable, Cards: Regular rate and rhythm. Pulm: Breathing comfortably on RA. Abd: non-tender, non-distended, soft, no gaurding Ext: no edema, cyanosis, motteling, or rash. Neuro: MS: AAOx2 (not date), arouses to voice, improved eye opening apraxia + anosognosia, +asomoatagnoisa, neglect, no aphasia. CN: R gaze pref, no BTT on L, L facial droop M: antigravity on R, plegic on L S: no grimace to pain on L Labs: CBC: Lab Results Component Value Date WBC 16.35 (H) 12/05/2023 HGB 10.7 (L) 12/05/2023 HCT 34.1 (L) 12/05/2023 PLATELET 300 12/05/2023 MCV 97.2 12/05/2023 Coags: Lab Results Component Value Date INR 1.0 11/29/2023 PT 12.7 11/29/2023 CMP: Lab Results Component Value Date SODIUM 142 12/05/2023 POTASSIUM 4.3 12/05/2023 CHLORIDE 109 (H) 12/05/2023 CO2 27 12/05/2023 BUN 36 (H) 12/05/2023 CREATSERUM 0.49 (L) 12/05/2023 GLUCOSE 136 (H) 12/05/2023 GLUCOSE 118 (H) 11/29/2023 ABG: LFTs: Lab Results Component Value Date ALT 8 (L) 11/30/2023 AST 16 11/30/2023 ALKPHOS 80 11/30/2023 BILITOTAL 0.9 11/30/2023 BILIDIRECT 0.2 11/30/2023 Meds: aspirin 81 mg Per NG tube Daily Atorvastatin 40 mg Per NG tube QHS carveDILOL 6.25 mg Per NG tube Q12HNS cefTRIAXone 2 g Intravenous Q24H enoxaparin 40 mg Subcutaneous Daily Lisinopril 20 mg Per NG tube Daily Polyethylene glycol 17 g Per NG tube Q12H Senna 17.2 mg Per NG tube Q12H Not on File Imaging: CT HEAD WITHOUT CONTRAST Final Result IMPRESSION: Evolving infarcts in the right RUBY and MCA distribution with hemorrhagic transformation in the right basal ganglia with unchanged focal hematoma. Mildly mass effect with leftward shift of 4 mm. CHEST 1 VIEW PORTABLE Final Result IMPRESSION: New bibasilar atelectasis status post placement of partially visualized feeding tube. HEAD WITHOUT CONTRAST Final Result IMPRESSION: Evolving infarcts in the right RUBY and MCA distribution with petechial hemorrhagic transformation in the right basal ganglia with unchanged focal hematoma. Mildly progressed mass effect with leftward shift of 4 mm. ABDOMEN 1 VIEW Final Result IMPRESSION: Dobbhoff tube with tip projecting over the pyloroduodenal region. Consider advancement to confirm postpyloric position. BRAIN WITHOUT CONTRAST Final Result IMPRESSION: Acute infarcts in the right RUBY and MCA territories with hemorrhagic transformation in the right basal ganglia and small volume intraventricular hemorrhage. Mass effect with mild leftward shift of 2 mm. HEAD WITHOUT CONTRAST Final Result IMPRESSION: No interval change in acute infarcts in the right RUBY and MCA distribution with a 1.4 cm hematoma in the right basal ganglia as confirmed on dual-energy CT. Similar mass effect and leftward shift of 3 mm. HEAD WITHOUT CONTRAST Final Result IMPRESSION: Evolving infarct involving a large portion of the right MCA vascular territory as described above, increased in extent in comparison to prior head CT. Hyperdensities involving the right basal ganglia likely represent a combination of hemorrhage and contrast staining. A more focal and hyperdense component involving the right globus pallidus is favored to represent hematoma. Further characterization and distinction of hemorrhage/contrast could be obtained with a dual energy CT if clinically indicated. The suspected hemorrhagic component is new in comparison to previous head CT from November 29, 2023. There is associated mass effect with effacement of the right lateral ventricle but minimal leftward midline shift at this point in time. Findings communicated to Dr. Powers on 11/30/2023 at 10:55 AM. 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 There is distal reconstitution of several right middle cerebral artery branches, likely related to collateral flow. Occlusion of the right M1 segment with distal reconstitution, as above. Short segment of occlusion of the proximal right A1 segment. Remainder of the anterior cerebral arteries are patent, without significant stenosis. CARDIOGRAM Final Result XR ABDOMEN 1 VIEW PORTABLE Final Result FINDINGS/IMPRESSION: Tubes: Feeding tube tip is just entering the duodenum. The lower pelvis was excluded. Normal bowel gas pattern. No definite pneumoperitoneum. ABDOMEN 1 VIEW PORTABLE Final Result IMPRESSION: Feeding tube with tip in the proximal stomach. If postpyloric position is desired further advancement is recommended. SPINE CERVICAL WITHOUT CONTRAST Final Result IMPRESSION: 1. No acute fracture or traumatic malalignment. 2. Degenerative changes as above. I personally viewed and interpreted these images and I have reviewed and approved this report. CEREBRAL PERFUSION ANALYSIS Final Result IMPRESSION: Large perfusion defect involving the right MCA and reticular striate territories. Completed infarct core in the basal ganglia with large volume of ischemic penumbra. STROKE HEAD-STROKE ALERT ONLY Final Result IMPRESSION: Acute nonhemorrhagic infarct in the right basal ganglia lenticulostriate distribution. No significant intracranial mass effect. Findings were discussed with Ryley Licea at 3:06 PM on November 29, 2023. I personally viewed and interpreted these images and I have reviewed and approved this report. RO IMAGING FOR NEURO ENDOVASCULAR (Results Pending) CT ANGIO BRAIN/NECK (Results Pending) Assessment: 78 yo F with a hx of HTN, CAD, HLD who presented with acute L sided weakness and facial droop. Outside the window for lytics. CTA revealed long segment occlusion of R ICA to R M2 s/p MT with TICI2B revascularization Plan: Neuro #R ICA stroke s/p EVT w TCIC 2b w hemm tx of R BG on 11/29. Ongoing work up, currently cryptogenic -ASA 81 -atorvastatin 40 -SBP<160 -CTA head/neck to repeat to follow up if evidence of ORQUIDEA in neck -PT/OT/NETBACKUP ADMINISTRATOR -LDL 130, HbA1c 1c 5.3 #pain/agitation/sedation -prn tylenol Cards #HTN -lisinopril 20. Increase to 40 mg lisinopril -coreg 6.25 bid -EKG: no afib -TTE: mild AR, nml EF -BP goal: -SBP<160, MAP>65 Pulm #no acitve issues O2 Sat (%): [93 %-97 %] 96 % O2 Device: room air -encourage IS -prn chest PT Renal -Na goal: 135-145 -I/O goal:even -IVF: prn IVF bolus -electrolyte repeltionn prn ID #+ blood cx with staph hominis, likely contaminant # pneumonia, treating fo CAP -repeat blood cx -trend WBC -Abx: ceftriaxone day 4/5, fu resp cuslture, -Cultures:send resp culture, repeat blood cx GI -Diet/nutrition:TF, review consultant following -Last BM: 12/04 .Bowel Reg: senna, prn miralax. -Stress ulcer prophylaxis:none Heme -DVT prophylaxis: lovenox 40 Endo -HbA1c: 5.3 -BS range: 120-180 Lines Patient Lines/Drains/Airways Status Active Lines, Drains, Airways, & Wound Overview Name Placement date Placement time Site Days Peripheral IV Line - Single Lumen 12/04/23 0931 median vein (underside of arm), right 20 gauge;1 3/4 in length 12/04/23 0931 -- 1 Peripheral IV Line - Single Lumen 12/04/23 0932 median cubital vein (antecubital fossa), left 20 gauge;1 3/4 in length 12/04/23 0932 -- 1 External Catheter 12/04/23 0600 12/04/23 0600 -- 1 Naso/Oral Tube 11/30/23 0056 Nasoenteric feeding tube left nostril 11/30/23 0056 -- 5 Wound Sheath Site 11/29/23 1551 Right Femoral 11/29/23 1551 Femoral 5 Code Status/GOC #FULL code -HCP/NOK/Family: jaylen (child), will update today This patient is critically ill, unstable and is at high risk of imminent or life threatening deterioration requiring close neurologic and hemodynamic monitoring due to ishcemic stroke, hypertension requiring IV medicaitons. I personally spent 35 minutes in the intensive care unit providing critical care services to the patient today independent of procedures, teaching and other care providers. Management of the above was performed and detailed. My time managing this critically ill patient included review of interval history, laboratories, radiology and consultation reports; performing a physical examination; discussing the patient with the multi-disciplinary team and managing life sustaining therapies to prevent imminent clinical deterioration. Hayley Cardenas MD Neurocritical Care Attending NEUROCRITICAL CARE PROGRESS NOTE HOSPITAL VISIT DEMOGRAPHICS Patient: Aroldo Vargas Code status: Full Code Admission date: 11/29/2023 2:45 PM Hospital days: LOS: 6 days CHIEF COMPLAINT RMCA stroke s/p mechanical thrombectomy HISTORY OF PRESENT ILLNESS Aroldo Vargas is a 78 y.o. female with a past history of HTN, HLD, CAD, dementia, TIA who presented to [facility] with acute onset L hemiplegia, L facial droop, and slurred speech concerning for a RMCA stroke. She was found by her family this morning with symptoms and her LKW was 2145 on 11/28. She was seen at an OSH with telestroke evaluation. Initial NIHSS was 8. CTA positive for HERVE occlusion and transferred to [facility] for mechanical thrombectomy. No IV thrombolytics as she was outside the window. On arrival to [facility], her NIH was 16. CTH was showing evolving RMCA territory stroke and CTP was positive for RMCA mismatch. MRS 2, limited by inability to manage her finances due to memory difficulties. She was take to the OR emergently for mechanical thrombectomy with TICI 2b revascularization of a long segment occlusion of HERVE to RM2. She admitted to the [facility] for post-stroke management INTERVAL HISTORY SINCE ADMISSION 11/29/2023: Admit to [facility] 11/30/2023: acute decline in exam; contrast extravasation vs. Hemorrhage on CT; taken for dual energy CT 12/01: no acute events 12/02: exam change overnight, slight increased edema of CTH. Na goal 145-150, HTS boluses x2. Fever 101.1, infectious workup, Ceftriaxone for possible asp pneumonia. 12/03: rCTH stable hemorrhage and edema 12/04: adjust BP reg to wean cardene 12/05: increase lisinopril, transfer to [place] PHYSICAL EXAM GENERAL: Lethargic, no acute distress HEENT: normocephalic CARDIO: RRR, no edema PULM: clear/diminished to auscultation bilaterally, equal chest rise; no secretions noted ABDOMINAL: soft, nontender, nondistended, active bowel sounds EXTREMITIES: no wounds or lesions noted VASCULAR: 2+ distal pulses, capillary refill <3 seconds NEURO: arouses to voice/stimuli, oriented to self and hospital, R gaze preference. EOM intact to R will not cross midline, no blink to threat on left, does not attend to left side, left hemineglect and LUE asomatagnosia. Follows commands on R. RUE/RLE spontaneous, LUE/LLE withdraws. ASSESSMENT AND PLAN Neuro: (11/29/2023) 6 Days Post-Op s/p mechanical thrombectomy, TICI 2b for HERVE/MCA ischemic stroke (11/29/23) Acute R RUBY/MCA CVA with R BG hemorrhagic conversion Left hemiplegia Dysarthria - Initial CVA Management: - 11/29/23 Stroke alert performed; summary of imaging findings: NIHSS 16 with R MCA stroke - No IV thrombolytics with LKW 2145 on 11/28/23, outside window for administration - 11/29/23 NSGY consulted for thrombectomy, performed and obtained TICI 2B revascularization Imaging: - 11/29 CT H: acute nonhemorrhagic infarct in the R basal ganglia - 11/30: CTA Over-read: 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 There is distal reconstitution of several right middle cerebral artery branches, likely related to collateral flow. Occlusion of the right M1 segment with distal reconstitution, as above. Short segment of occlusion of the proximal right A1 segment. Remainder of the anterior cerebral arteries are patent, without significant stenosis. - 11/30: CT Head: evolving R MCA infarct - new hyper densities involving the right basal ganglia (rule out hemorrhage vs. Contrast extravasation). A more focal and hyperdense component involves the R GPI - 11/30 (interval scan): stable - 11/30 MRI B: R RUBY/MCA infracts with hemorrhagic conversion in R BG with small volume of IVH, mass effect with mild shift of 2 mm - 12/01 CTH overnight: evolving R RUBY/MCA infarct with stable petechial hemorrhage in R BG. Mildly progressed edema with shift to 4 mm. - Repeat CTH 12/03 stable - CTA brain/neck pending to evaluate for underlying ORQUIDEA - Ongoing CVA management: - Monitor neurostatus with neurochecks Q2H and pupilometer Q2H - Prevent cerebral hypoperfusion with goal SBP <160 (see cards) - antiplatelet therapy: ASA 81 mg held given hemorrhagic conversion, resumed 12/04 - Cytotoxic Cerebral Edema Management: - Goal Na 135-145; monitor Na Q6H Recent Labs 12/02/23 2314 12/03/23 0507 12/03/23 1820 12/03/23 2346 12/04/23 0858 12/05/23 0154 SODIUM 145 < > 145 145 144 142 OSMOLALITY 309* -- -- 311* -- 308* CHLORIDE 112* -- -- 111* -- 109* < > = values in this interval not displayed. - Stroke etiology presumed to be atherothrombotic based on the TOAST Criteria. Stroke risk factors include CAD, hypercholesterolemia, and hypertension. - Completed TTE (see cards) - LDL 130 and statin therapy started - HA1C 5.3 - antiplatelet therapy: see above - VTE prophylaxis: Lovenox - Pain management - Tylenol 650mg Q4H PRN Psych: Dementia - hold home Rivastigmine 3 mg BID Pulm: Acute hypoxic respiratory insufficiency Aspiration pneumonia O2 Sat (%): 96 % (12/05 0900) O2 Device: room air (12/05 0400) - Goal SpO2 >92%; wean FiO2 as tolerated - - [id number], encourage aggressive IS Imaging - 11/29 CXR: no acute process (performed at OSH) - 12/02 CXR: New bibasilar atelectasis Cards: Essential HTN HLD CAD Temp: [97.6 F (36.4 C)-98.6 F (37 C)] 97.8 F (36.6 C) Pulse (Heart Rate): [62-93] 68 Resp Rate: [20-32] 22 BP: (112-183)/(56-86) 132/63 O2 Sat (%): [93 %-97 %] 96 % - Goal SBP <160, MAP >65 HTN - Home antihypertensives: metoprolol 200 mg XL daily (held) - Current meds: - PRN labetalol and hydralazine - increase Lisinopril 40mg daily 12/05 - coreg 6.25mg BID - Cardene gtt stopped as of 12/04 PM - discontinued HLD - LDL 130 - atorvastatin 40mg daily (started this admission) Imaging/diagnostics - 11/30 TTE: No prior study for comparison. Left Ventricle: Chamber size is normal. Increased wall thickness. Concentric remodeling is present. Normal global systolic function. Regional wall motion is normal. Ejection fraction is hyperdynamic (>70%). Diastolic function could not be determined. Right Ventricle: Chamber size is normal. Systolic function is normal. Left Atrium: Chamber size is normal. Aortic Valve: Trileaflet valve. Leaflet mobility is normal. Mild regurgitation. No stenosis. Mitral Valve: Normal appearing leaflets. Leaflet mobility is normal. Moderate posterior annular calcification. Mild regurgitation. No valve stenosis. Tricuspid Valve: Normal leaflets. Leaflet mobility is normal. Trace regurgitation. No stenosis. Poor tricuspid regurgitation jet may not accurately reflect right ventricular systolic pressure. - 11/30 troponin: 110 --> 84 - 11/30 ECG: NSR Renal/: Hypophosphatemia Hypocalcemia - Fluid Balance: - Goal: euvolemia Intake/Output Summary (Last 24 hours) at 12/05/2023 1007 Last data filed at 12/05/2023 0838 Gross per 24 hour Intake 1799.08 ml Output 900 ml Net 899.08 ml - Daily Chem 10; electrolytes replaced per [facility] protocol Recent Labs 12/03/23 2346 12/04/23 0858 12/05/23 0154 SODIUM 145 144 142 POTASSIUM 4.1 -- 4.3 CHLORIDE 111* -- 109* CO2 27 -- 27 BUN 32* -- 36* CREATSERUM 0.45* -- 0.49* MAGNESIUM 2.0 -- 2.3 PHOSPHORUS 2.8 -- 3.5 ICA 4.66 -- 4.57* GI/Nutrition: Dysphagia secondary to ischemic stroke No results for input(s): "ALBUMIN", "BILIDIRECT", "BILITOTAL", "ALKPHOS", "ALT", "AST", "TP", "AMYLASE", "LIPASE" in the last 72 hours. - DIET NPO AND TUBE FEEDING with meds - Johnson Swallow Screening Result: excluded from swallow screen = NPO - Placed Dobhoff tube -- Tube feed: Vital AF 1.2 goal rate 55 cc/hr - Body mass index is 37.02 kg/m . - Bowel regimen: - BID senna and miralax - dulcolax suppository 12/03, 12/04 - Last Bowel Movement: 12/04/23 Endo: No Current Issues - Goal blood glucose 140-180 Recent Labs 12/02/23 2314 12/03/23 2346 12/05/23 0154 GLUCOSE 155* 136* 136* - CTM need for SSI ID: Leukocytosis, concern for aspiration pneumonia Febrile Recent Labs 12/03/23 2346 12/05/23 0154 WBC 19.04* 16.35* - Temp (24hrs), Av.1 F (36.7 C), Min:97.6 F (36.4 C), Max:98.6 F (37 C) - PRN Tylenol for T>100.4F - Most recent and positive cultures: Date Collected Source Result Date Finalized 12/02 Nasal staph swab Pend 12/02 UA with reflex negative UA 12/02 Peripheral blood x2 11/20 Staph hominis, likely contaminant - Antiinfectives: Start Date Antiinfective Coverage Course Length Stop Date 12/02 Ceftriaxone Asp pna TBD 12/06 Heme/Onc: No Current Issues Recent Labs 12/03/23 2346 12/05/23 0154 WBC 19.04* 16.35* RBC 3.45* 3.51* HGB 10.6* 10.7* HCT 33.1* 34.1* PLATELET 278 300 - Goal plt >100, INR <1.4, Hgb >7 - OR EBL: 0mL Lovenox DVT PPx Musc: No Current Issues - PT/OT consulted and following - Current Activity Order: AAT Social/Dispo: - Code status: Full Code - HCPOA/LNOK: Dina Carlisle - 12/02: daughter updated on plan of care, question answered - Medications reconciled - Discharge planning per PCRM/SW. Complexity. Obesity Body mass index is 37.02 kg/m . - Follow with PCP for dietary and lifestyle modifications. Any conditions listed below are present on admission unless otherwise specified. .Ischemic CVA, Location: [facility] - 11/29/23 Dementia - monitor and treat as needed ICU Checklist: [ ] CAM-ICU [ ] SAT [ ] SBT [ x] DVT ppx; [x ] SCDs; [ x] Lovenox [ ] heparin [ ] Stress ulcer prophylaxis: none (indication: n/a) - Lines/Tubes: Castellanos inserted 12/01 (indication: I&O) Enteral access: inserted 11/30, [ ] gastric; [ x] post-pyloric PureWick Discussed with NCCU Attending, Dr. Theresa Feliciano MD Service pager: [phone] Service [place] #: [id number] (Beds [id number] and beds), [place] #: [id number] (Beds [id number] and [facility]) 12/05/23 10:07 AM Acute Occupational Therapy Treatment Prior to Admission AM-PAC Score: PRIOR LEVEL AM-PAC Activity Raw Score: 24 Current AM-PAC score(s): CURRENT AM-PAC Activity Raw Score: 7 Based on the above AM-PAC score(s), and OT clinical judgment, discharge destination recommendation is: [facility] Barriers to discharge home: Patient needs assistance with ADLs, Patient needs assistance with IADLs (see note below), Cognitive impairments that impact safety (see note below) Mobility equipment available at home: 2 wheeled walker, none used ADL equipment available at home: Equipment recommendations for discharge: to be determined Current therapy frequency recommendation(s) in acute: 5 times a week Precautions and Weightbearing Status: OT Existing Precautions/Restrictions: fall Telemetry Patient Safety Communication Prior to Visit: Nursing Subjective: Pt agreeable to OT session, right gaze preference and head turn throughout Pain: General Pain Documentation (Adult, OB, Peds) Presence of Pain: denies pain/discomfort Presence of Pain Score (Auto-calculated): 0 Objective/Observation: Vitals/Vitals Responses to Treatment: VSS O2 Device: room air Cognition Overall Cognitive Status: Impaired Arousal/Alertness: Lethargic Orientation Level: Oriented to person Following Commands: Follows one step commands with repetition, Follows one step commands with increased time, Follows commands 50-75% of the time Safety Judgment: Decreased awareness of need for assistance, Decreased awareness of need for safety Awareness of Errors: Decreased awareness of errors Deficits: Decreased awareness of deficits Attention Span: Attends with cues to redirect Cognition Comments: right head turn and gaze preference, unable to track past midline, poor insight into impairments ADL Assessment/Intervention: ADLs: Eating Assistance: Grooming Assistance: Maximal Grooming Location: edge of bed Grooming Deficit: Activity tolerance, Generalized weakness, Balance, Brushing hair Grooming Skilled Rationale (Verbal/Tactile/Visual/Demonstration): Setup, Supervision, Facilitate positioning Grooming Intervention/Details: With max initiation cues pt min able to use right hand to brush right side of hair x2. Pt then able to brush once on left side with max initiation cues. pt able to hold nicola kit tool in hand and bring to mouth and move around mouth, assist for thoroughness and holding suction Bathing Assistance: UE Dressing Assistance: LE Dressing Assistance: Toilet Assistance: Extremity Assessments: See OT Evaluation flowsheet for Extremity Measurement updates. Balance: Sitting Balance Static Sitting-Level of Assistance: Dependent Skilled Rationale: Verbal cues, Tactile cues, Positioning, Facilitate anterior shift, Finding/maintaining midline positioning Sitting Balance Skilled Intervention/Details: Pt sat EOB approx 15 min with dep A for sitting balance with retropulsive LOB and pushing through RUE towards left. Pt aware of LOB backwards but unable to correct despite cues. Tactile cues to position hand in lap to reduce pushing. Challenged throughout for visual scanning and turning head towards midline and left. With repeated cues pt able to briefly turn head to midline but not maintian. Provided passive stretch to cervical rotation to promote midline positioning. Skin and Edema: Mobility Assessment/Intervention: Scooting Bridging Mobility [place] Level: Scooting/Bridging: dependent (less than 25% patient effort) Physical Assist: Scooting/Bridgin person assist Bed Features/Set-up: Scooting/Bridging: Flat Skilled Rationale: Verbal cues Skilled Intervention/Details: Scooting/Bridging: boost in bed Supine to Sit Mobility [place] Level: Supine->Sit: dependent (less than 25% patient effort) Physical Assist: Supine->Sit: 2 person assist Bed Features/Set-up: Supine->Sit: Head of bed elevated Skilled Rationale: Verbal cues Skilled Intervention/Details: Supine->Sit: no initiation despite cues Sit to Supine Mobility [place] Level: Sit->Supine: dependent (less than 25% patient effort) Physical Assist: Sit->Supine: 2 person assist Bed Features/Set-up: Sit->Supine: Head of bed elevated Transfer Assessment/Intervention: Functional Mobility: Outcome Score(s): CURRENT [facility] Daily Activity Inpatient Short Form Putting on/Taking Off Lower Body Clothin - Total Assistance Bathin - Total Assistance Toiletin - Total Assistance Putting on/Taking Off Upper Body Clothin - Total Assistance Groomin - A Lot of Assistance Eatin - Total Assistance CURRENT [facility] Activity Raw Score: 7 CURRENT [facility] Activity Functional Limitation/Modifier: 92.44% Currently Impaired in Daily Activity - CM Assessment & Plan: Pt demonstrates increased sitting balance and tolerance, participation in ADLs EOB from previous session and is making fair progress towards goals. Pt continues to present with deficits in balance, cognition, visual attention and requires 1-2 person assist for ADLs and functional transfer and mobility tasks. Pt requires continued skilled OT services to address functional deficits and maximize safety and independence in ADLs for return home safely. Patient Instruction/Education this session: progression of treatment, cues for sitting balance, visual scanning left Plan for next session: increased visual scanning to left and sitting balance and posture for ADLs Acute OT Goals Plan of Care by Desirae Quintero OT at 12/04/2023 12:30 PM Version 1 of 1 Problem: OT - Transfers Goal: Transfers Supine -> Sit - Patient will perform supine to/from sit with flat bed & no rail and maximal assistance to improve participation in ADLs. Outcome: Ongoing Problem: OT - Vision Goal: Visual Tracking - Patient will track past midline to left during session with no greater than mod cues to attend to familiar object/person for ADL participation in 5/5 trials. Outcome: Ongoing Problem: OT - ADLs Goal: Grooming - Patient will complete grooming edge of bed with minimal assistance for improved ability to safely complete ADLs. Outcome: Progressing Toward Goal Problem: OT - Balance Goal: Balance - Seated - Patient will perform 15 minutes of functional task in sitting with moderate assistance and fair balance to promote safety during self-care activities. Outcome: Progressing Toward Goal Problem: OT - Cognition Goal: Cognition Simple ADL - Patient will demonstrate improved cognition, completing simple ADL task for 10 minutes with no greater than min cues required to maintain attention. Outcome: Progressing Toward Goal OT treatment consisted of the following to work and progress towards the above goal(s): OT Evaluation and Treatment Time Self Care/Home Management (ADLs) Time Entry: 26 Treating Therapist: Desirae Quintero OT Additional Details: OT Co-Eval/Treatment Information Co-evaluation/co-treatment performed?: Yes, simultaneous billable skilled care was necessary due to medical complexity and functional deficits Other discipline: PT Rationale for need to co-eval/treat: cognitive issues, postural control Co-treatment goal focus: self-care PPE used during patient interaction: facemask, gloves Patient location at end of session: bed with head of bed elevated Alarms on at end of session: bed alarm Needs in reach. Time In: 1203 Time Out: 1229 Total Visit Time: 26 minutes Total Treatment Time (skilled, billable minutes): 26 minutes Upon discontinuation of Acute Care Occupational Therapy Services or patient discharge from the hospital this note represents the current Occupational Therapy Discharge Summary. Acute Physical Therapy Treatment Prior to Admission AMPA score(s): PRIOR LEVEL AM-PAC Activity Raw Score: 24 Current AM-PAC score(s): CURRENT AM-PAC Mobility Raw Score: 6 Based on the above AM-PAC score(s) and PT clinical judgment, patient is a good candidate for discharge to [facility] Barriers to discharge home: Patient needs assistance with functional mobility Mobility equipment available at home: 2 wheeled walker, none used ADL equipment available at home: Equipment needed for discharge: to be determined Current therapy frequency recommendation in acute: Therapy Frequency: 5 times a week Precautions and Weightbearing Status: Existing Precautions/Restrictions: fall Telemetry Patient Safety Communication Prior to Visit: Nursing Subjective: Pt agreed to PT Pain: General Pain Documentation (Adult, OB, Peds) Presence of Pain: denies pain/discomfort Presence of Pain Score (Auto-calculated): 0 Objective/Observation: Vitals/Vitals Responses to Treatment: no adverse response to PT O2 Device: room air Cognition Overall Cognitive Status: Impaired Arousal/Alertness: Lethargic Orientation Level: Oriented to person, Oriented to place ("hospital" for place. March 2000 for time.) Following Commands: Follows one step commands with increased time, Follows one step commands with repetition Safety Judgment: Decreased awareness of need for safety, Decreased awareness of need for assistance Awareness of Errors: Assistance required to identify errors made, Assistance required to correct errors made Deficits: Decreased awareness of deficits Extremity Assessments: See PT Evaluation flowsheet for Extremity Measurement updates. Balance: Sitting Balance Static Sitting-Level of Assistance: Dependent Skilled Rationale: Verbal cues, Tactile cues, Hand placement, Technique of activity, Full extension to upright positioning/posture, Finding/maintaining midline positioning Sitting Balance Skilled Intervention/Details: Static sitting balance with dependent A due to posterior/left lean with intermittent pushing to left with RUE. Pt able to verbalize posterior lean and pointed forward when asked to identify direction required to correct lean but pt unable to initiate correction. Pt with right head turn and right gaze in sitting. PT cued pt for awareness of head position and to initiate corrective left head turn. With repeated verbal cues and tactile cues; pt able to minimally initiate corrective turn toward midline but unable to reach midline without assist. Once assisted to midline; pt maintained midline with verbal cues for short duration before resuming right head turn. Mobility Assessment/Intervention: Supine to Sit Mobility [place] Level: Supine->Sit: dependent (less than 25% patient effort) Physical Assist: Supine->Sit: 2 person assist Bed Features/Set-up: Supine->Sit: Head of bed elevated Skilled Rationale: Verbal cues, Tactile cues, Hand placement, Technique of activity Skilled Intervention/Details: Supine->Sit: verbal/tactile cues for instruction on transfer technique. Dependent A x 2 for bilat LE And trunk management. Sit to Supine Mobility [place] Level: Sit->Supine: dependent (less than 25% patient effort) Physical Assist: Sit->Supine: 2 person assist Bed Features/Set-up: Sit->Supine: Head of bed elevated Skilled Rationale: Verbal cues, Tactile cues, Hand placement, Technique of activity Skilled Intervention/Details: Sit->Supine: verbal/tactile cues for instruction on transfer technique. Dependent A x 2 for bilat LE And trunk management. Outcome Score(s): CURRENT [facility] Basic Mobility Inpatient Short Form Turning over in bed: 1 - Total Assistance Sitting/standing from chair: 1 - Total Assistance Moving from lying on back to sittin - Total Assistance Moving to and from bed to chair: 1 - Total Assistance Walk in hospital room: 1 - Total Assistance Climbing 3-5 steps with a railin - Total Assistance CURRENT [facility] Mobility Raw Score: 6 CURRENT [facility] Mobility Functional Limitation/Modifier: 100.00% Currently Impaired in Basic Mobility Currently Impaired in Basic Mobility - CN Assessment & Plan: Pt tolerated PT session well with focus on supine to/from sit transfers, sitting balance, midline trunk position, and midline head position. Pt would benefit from continued PT services to address deficits/impairments including: decreased strength, decreased balance, decreased functional endurance, and impaired bed mobility in order to progress I with functional mobility. Patient Instruction/Education this session: Plan for PT session Plan for next session: progress sitting balance, transfers Acute PT Goals Plan of Care by Regine Livingston PT at 12/04/2023 2:19 PM Version 1 of 1 Problem: PT - General Goals Goal: Supine <-> Sit Transfers - Patient will perform supine to/from sit transfers with minimal assistance and of 2 people and with use of hospital bed features in order to improve functional mobility and safety. Outcome: Progressing Toward Goal Goal: Sitting Endurance/Balance - Patient will perform seated balance tasks for 10 minutes with minimal assistance and bilateral UE support Outcome: Progressing Toward Goal PT treatment consisted of the following to progress towards the above goal(s): PT Evaluation and Treatment Time Therapeutic Activity Time Entry: 14 Neuromuscular Re-Education Time Entry: 12 Treating Therapist: Regine Livingston PT Additional Details: PT Co-Eval/Treatment Information Co-evaluation/co-treatment performed?: Yes, simultaneous billable skilled care was necessary due to medical complexity and functional deficits Other discipline: OT Rationale for need to co-eval/treat: postural control Co-treatment goal focus: balance, mobility, transfer Assisted by during session: Danielle Farrell, student PT PPE used during patient interaction: facemask, gloves Patient location at end of session: bed with head of bed elevated Alarms on at end of session: bed alarm, RN aware Needs in reach. Time In: 1203 Time Out: 1229 Total Visit Time: 26 minutes Total Treatment Time (skilled, billable minutes): 26 minutes Upon discontinuation of Acute Care Physical Therapy Services or patient discharge from the hospital this note represents the current Physical Therapy Discharge Summary. NEUROCRITICAL CARE PROGRESS NOTE HOSPITAL VISIT DEMOGRAPHICS Patient: Aroldo Vargas Code status: Full Code Admission date: 11/29/2023 2:45 PM Hospital days: LOS: 5 days CHIEF COMPLAINT RMCA stroke s/p mechanical thrombectomy HISTORY OF PRESENT ILLNESS Aroldo Vargas is a 78 y.o. female with a past history of HTN, HLD, CAD, dementia, TIA who presented to [facility] with acute onset L hemiplegia, L facial droop, and slurred speech concerning for a RMCA stroke. She was found by her family this morning with symptoms and her LKW was 2145 on 11/28. She was seen at an OSH with telestroke evaluation. Initial NIHSS was 8. CTA positive for HERVE occlusion and transferred to [facility] for mechanical thrombectomy. No IV thrombolytics as she was outside the window. On arrival to [facility], her NIH was 16. CTH was showing evolving RMCA territory stroke and CTP was positive for RMCA mismatch. MRS 2, limited by inability to manage her finances due to memory difficulties. She was take to the OR emergently for mechanical thrombectomy with TICI 2b revascularization of a long segment occlusion of HERVE to RM2. She admitted to the NCCU for post-stroke management INTERVAL HISTORY SINCE ADMISSION 11/29/2023: Admit to [facility]U 11/30/2023: acute decline in exam; contrast extravasation vs. Hemorrhage on CT; taken for dual energy CT 12/01: no acute events 12/02: exam change overnight, slight increased edema of CTH. Na goal 145-150, HTS boluses x2. Fever 101.1, infectious workup, Ceftriaxone for possible asp pneumonia. 12/03: rCTH stable hemorrhage and edema 12/04: adjust BP reg to wean cardene PHYSICAL EXAM GENERAL: Lethargic, no acute distress HEENT: normocephalic CARDIO: RRR, no edema PULM: clear/diminished to auscultation bilaterally, equal chest rise; no secretions noted ABDOMINAL: soft, nontender, nondistended, active bowel sounds EXTREMITIES: no wounds or lesions noted VASCULAR: 2+ distal pulses, capillary refill <3 seconds NEURO: arouses to voice/stimuli, need promoting to attempt eye opening 2/2 eye lid apraxia. R gaze preference. EOM intact to R will not cross midline, does not attend. L side neglect. Follows commands on R. RUE/RLE spontaneous, LUE/LLE withdraws. ASSESSMENT AND PLAN Neuro: (11/29/2023) 5 Days Post-Op s/p mechanical thrombectomy, TICI 2b for HERVE/MCA ischemic stroke (11/29/23) Acute R RUBY/MCA CVA with R BG hemorrhagic conversion Left hemiplegia Dysarthria - Initial CVA Management: - 11/29/23 Stroke alert performed; summary of imaging findings: NIHSS 16 with R MCA stroke - No IV thrombolytics with LKW 2145 on 11/28/23, outside window for administration - 11/29/23 NSGY consulted for thrombectomy, performed and obtained TICI 2B revascularization Imaging: - 11/29 CT H: acute nonhemorrhagic infarct in the R basal ganglia - 11/30: CTA Over-read: 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 There is distal reconstitution of several right middle cerebral artery branches, likely related to collateral flow. Occlusion of the right M1 segment with distal reconstitution, as above. Short segment of occlusion of the proximal right A1 segment. Remainder of the anterior cerebral arteries are patent, without significant stenosis. - 11/30: CT Head: evolving R MCA infarct - new hyper densities involving the right basal ganglia (rule out hemorrhage vs. Contrast extravasation). A more focal and hyperdense component involves the R GPI - 11/30 (interval scan): stable - 11/30 MRI B: R RUBY/MCA infracts with hemorrhagic conversion in R BG with small volume of IVH, mass effect with mild shift of 2 mm - 12/01 CTH overnight: evolving R RUBY/MCA infarct with stable petechial hemorrhage in R BG. Mildly progressed edema with shift to 4 mm. - Repeat CTH 12/03 stable - Ongoing CVA management: - Monitor neurostatus with neurochecks Q2H and pupilometer Q2H - Prevent cerebral hypoperfusion with goal SBP <160 (see cards) - antiplatelet therapy: ASA 81 mg held given hemorrhagic conversion, resumed 12/04 - Cytotoxic Cerebral Edema Management: - Goal Na 135-145; monitor Na Q6H Recent Labs 12/02/23 0427 12/02/23 1444 12/02/23 2314 12/03/23 0507 12/03/23 1130 12/03/23 1820 12/03/23 2346 12/04/23 0858 SODIUM 139 < > 145 < > 143 145 145 144 OSMOLALITY 297 -- 309* -- -- -- 311* -- CHLORIDE 106 -- 112* -- -- -- 111* -- < > = values in this interval not displayed. - Stroke etiology presumed to be atherothrombotic based on the TOAST Criteria. Stroke risk factors include CAD, hypercholesterolemia, and hypertension. - Completed TTE (see cards) - LDL 130 and statin therapy started - HA1C 5.3 - antiplatelet therapy: see above - VTE prophylaxis: Lovenox - Pain management - Tylenol 650mg Q4H PRN Psych: Dementia - hold home Rivastigmine 3 mg BID Pulm: Acute hypoxic respiratory insufficiency Aspiration pneumonia O2 Sat (%): 94 % (12/04 1100) O2 Device: room air (12/04 1000) Flow (L/min): 1 (12/04 0800) - Goal SpO2 >92%; wean FiO2 as tolerated - - [id number], encourage aggressive IS Imaging - 11/29 CXR: no acute process (performed at OSH) - 12/02 CXR: New bibasilar atelectasis Cards: Essential HTN HLD CAD Temp: [97.5 F (36.4 C)-99.3 F (37.4 C)] 98.6 F (37 C) Pulse (Heart Rate): [75-93] 87 Resp Rate: [20-34] 32 BP: (134-173)/(62-82) 134/65 O2 Sat (%): [94 %-99 %] 94 % - Goal SBP <160, MAP >65 HTN - Home antihypertensives: metoprolol 200 mg XL daily (held) - Current meds: - PRN labetalol and hydralazine - Lisinopril 20mg daily - coreg 6.25mg BID - Cardene gtt, wean as able HLD - LDL 130 - atorvastatin 40mg daily (started this admission) Imaging/diagnostics - 11/30 TTE: No prior study for comparison. Left Ventricle: Chamber size is normal. Increased wall thickness. Concentric remodeling is present. Normal global systolic function. Regional wall motion is normal. Ejection fraction is hyperdynamic (>70%). Diastolic function could not be determined. Right Ventricle: Chamber size is normal. Systolic function is normal. Left Atrium: Chamber size is normal. Aortic Valve: Trileaflet valve. Leaflet mobility is normal. Mild regurgitation. No stenosis. Mitral Valve: Normal appearing leaflets. Leaflet mobility is normal. Moderate posterior annular calcification. Mild regurgitation. No valve stenosis. Tricuspid Valve: Normal leaflets. Leaflet mobility is normal. Trace regurgitation. No stenosis. Poor tricuspid regurgitation jet may not accurately reflect right ventricular systolic pressure. - 11/30 troponin: 110 --> 84 - 11/30 ECG: NSR Renal/: Hypophosphatemia Hypocalcemia - Fluid Balance: - Goal: euvolemia Intake/Output Summary (Last 24 hours) at 12/04/2023 1157 Last data filed at 12/04/2023 1100 Gross per 24 hour Intake 2171.52 ml Output 975 ml Net 1196.52 ml - Daily Chem 10; electrolytes replaced per [facility] protocol Recent Labs 12/02/23 2314 12/03/23 0507 12/03/23 2346 12/04/23 0858 SODIUM 145 < > 145 144 POTASSIUM 3.9 -- 4.1 -- CHLORIDE 112* -- 111* -- CO2 25 -- 27 -- BUN 24 -- 32* -- CREATSERUM 0.51 -- 0.45* -- MAGNESIUM 2.1 -- 2.0 -- PHOSPHORUS 3.3 -- 2.8 -- ICA 4.61 -- 4.66 -- < > = values in this interval not displayed. GI/Nutrition: Dysphagia secondary to ischemic stroke No results for input(s): "ALBUMIN", "BILIDIRECT", "BILITOTAL", "ALKPHOS", "ALT", "AST", "TP", "AMYLASE", "LIPASE" in the last 72 hours. - DIET NPO AND TUBE FEEDING with [facility] Swallow Screening Result: excluded from swallow screen = NPO - Placed Dobhoff tube -- Tube feed: Vital AF 1.2 goal rate 55 cc/hr - Body mass index is 37.02 kg/m . 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) Endo: No Current Issues - Goal blood glucose 140-180 Recent Labs 12/02/23 0427 12/02/23231312/03/23 2346 GLUCOSE 138* 155* 136* - CTM need for SSI ID: Leukocytosis, concern for aspiration pneumonia Febrile Recent Labs 12/02/23231312/03/23 2346 WBC 16.35* 19.04* - Temp (24hrs), Av.4 F (36.9 C), Min:97.5 F (36.4 C), Max:99.3 F (37.4 C) - PRN Tylenol for T>100.4F - Most recent and positive cultures: Date Collected Source Result Date Finalized 12/02 Nasal staph swab Pend 12/02 UA with reflex negative UA 12/02 Peripheral blood x2 pend - Antiinfectives: Start Date Antiinfective Coverage Course Length Stop Date 12/02 Ceftriaxone Asp pna TBD Heme/Onc: No Current Issues Recent Labs 12/02/23231312/03/23 2346 WBC 16.35* 19.04* RBC 3.57* 3.45* HGB 11.1* 10.6* HCT 34.1* 33.1* PLATELET 255 278 - Goal plt >100, INR <1.4, Hgb >7 - OR EBL: 0mL Musc: No Current Issues - PT/OT consulted and following - Current Activity Order: AAT Social/Dispo: - Code status: Full Code - HCPOA/LNOK: Dina Carlisle - 12/02: daughter updated on plan of care, question answered - Medications reconciled - Discharge planning per PCRM/SW. Complexity. Obesity Body mass index is 37.02 kg/m . - Follow with PCP for dietary and lifestyle modifications. Any conditions listed below are present on admission unless otherwise specified. .Ischemic CVA, Location: [facility] - 11/29/23 Dementia - monitor and treat as needed ICU Checklist: [ ] CAM-ICU [ ] SAT [ ] SBT [ x] DVT ppx; [x ] SCDs; [ x] Lovenox [ ] heparin [ ] Stress ulcer prophylaxis: none (indication: n/a) - Lines/Tubes: Castellanos inserted 12/01 (indication: I&O) Enteral access: inserted 11/30, [ ] gastric; [ x] post-pyloric Discussed with NCCU Attending, Dr. Gio Flores MD Service pager: [phone] Service [place] #: [id number] (Beds [id number] and beds), [place] #: [id number] (Beds [phone] [facility] beds) 12/04/23 11:57 AM Neurocritical Care Attending Note Patient Name: Aroldo Vargas : 12/04/2023 CC: ischemic stroke Neurosynopsis: 78 yo F with a hx of HTN, CAD, HLD who presented with acute L sided weakness and facial droop. Outside the window for lytics. CTA revealed long segment occlusion of R ICA to R M2 s/p MT with TICI2B revascularization 24 hour events: NO acute overnight events Vitals: Temp: [97.5 F (36.4 C)-99.3 F (37.4 C)] 98.6 F (37 C) Pulse (Heart Rate): [73-93] 85 Resp Rate: [20-27] 24 BP: (130-173)/(62-82) 144/69 O2 Sat (%): [95 %-99 %] 99 % I/O: Intake/Output Summary (Last 24 hours) at 12/04/2023 1005 Last data filed at 12/04/2023 0837 Gross per 24 hour Intake 2171.52 ml Output 960 ml Net 1211.52 ml Exam: Gen: NAD, appears comfortable, Cards: Regular rate and rhythm. Pulm: Breathing comfortably on RA. S Abd: non-tender, non-distended, soft, no gaurding Ext: no edema, cyanosis, motteling, or rash. Neuro: MS: AAOx2, anosasgnosia, asomoatagnoisa, neglect, no aphsasia L hemiattentinoi CN: R gaze pref, no BTT on L, L facial droop M: antigrva on R, plegic on L S: no grimace to pain on L Labs: CBC: Lab Results Component Value Date WBC 19.04 (H) 12/03/2023 HGB 10.6 (L) 12/03/2023 HCT 33.1 (L) 12/03/2023 PLATELET 278 12/03/2023 MCV 95.9 12/03/2023 Coags: Lab Results Component Value Date INR 1.0 11/29/2023 PT 12.7 11/29/2023 CMP: Lab Results Component Value Date SODIUM 144 12/04/2023 POTASSIUM 4.1 12/03/2023 CHLORIDE 111 (H) 12/03/2023 CO2 27 12/03/2023 BUN 32 (H) 12/03/2023 CREATSERUM 0.45 (L) 12/03/2023 GLUCOSE 136 (H) 12/03/2023 GLUCOSE 118 (H) 11/29/2023 ABG: LFTs: Lab Results Component Value Date ALT 8 (L) 11/30/2023 AST 16 11/30/2023 ALKPHOS 80 11/30/2023 BILITOTAL 0.9 11/30/2023 BILIDIRECT 0.2 11/30/2023 Meds: [START ON 12/05/2023] aspirin 81 mg Per NG tube Daily Atorvastatin 40 mg Per NG tube QHS cefTRIAXone 2 g Intravenous Q24H enoxaparin 40 mg Subcutaneous Daily Lisinopril 10 mg Per NG tube Daily Metoprolol 25 mg Per NG tube Q12H Polyethylene glycol 17 g Per NG tube Daily Senna 17.2 mg Per NG tube Q12H Not on File Imaging: CT HEAD WITHOUT CONTRAST Final Result IMPRESSION: Evolving infarcts in the right RUBY and MCA distribution with hemorrhagic transformation in the right basal ganglia with unchanged focal hematoma. Mildly mass effect with leftward shift of 4 mm. CHEST 1 VIEW PORTABLE Final Result IMPRESSION: New bibasilar atelectasis status post placement of partially visualized feeding tube. HEAD WITHOUT CONTRAST Final Result IMPRESSION: Evolving infarcts in the right RUBY and MCA distribution with petechial hemorrhagic transformation in the right basal ganglia with unchanged focal hematoma. Mildly progressed mass effect with leftward shift of 4 mm. ABDOMEN 1 VIEW Final Result IMPRESSION: Dobbhoff tube with tip projecting over the pyloroduodenal region. Consider advancement to confirm postpyloric position. BRAIN WITHOUT CONTRAST Final Result IMPRESSION: Acute infarcts in the right RUBY and MCA territories with hemorrhagic transformation in the right basal ganglia and small volume intraventricular hemorrhage. Mass effect with mild leftward shift of 2 mm. HEAD WITHOUT CONTRAST Final Result IMPRESSION: No interval change in acute infarcts in the right RUBY and MCA distribution with a 1.4 cm hematoma in the right basal ganglia as confirmed on dual-energy CT. Similar mass effect and leftward shift of 3 mm. HEAD WITHOUT CONTRAST Final Result IMPRESSION: Evolving infarct involving a large portion of the right MCA vascular territory as described above, increased in extent in comparison to prior head CT. Hyperdensities involving the right basal ganglia likely represent a combination of hemorrhage and contrast staining. A more focal and hyperdense component involving the right globus pallidus is favored to represent hematoma. Further characterization and distinction of hemorrhage/contrast could be obtained with a dual energy CT if clinically indicated. The suspected hemorrhagic component is new in comparison to previous head CT from November 29, 2023. There is associated mass effect with effacement of the right lateral ventricle but minimal leftward midline shift at this point in time. Findings communicated to Dr. Powers on 11/30/2023 at 10:55 AM. 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 There is distal reconstitution of several right middle cerebral artery branches, likely related to collateral flow. Occlusion of the right M1 segment with distal reconstitution, as above. Short segment of occlusion of the proximal right A1 segment. Remainder of the anterior cerebral arteries are patent, without significant stenosis. CARDIOGRAM Final Result XR ABDOMEN 1 VIEW PORTABLE Final Result FINDINGS/IMPRESSION: Tubes: Feeding tube tip is just entering the duodenum. The lower pelvis was excluded. Normal bowel gas pattern. No definite pneumoperitoneum. ABDOMEN 1 VIEW PORTABLE Final Result IMPRESSION: Feeding tube with tip in the proximal stomach. If postpyloric position is desired further advancement is recommended. SPINE CERVICAL WITHOUT CONTRAST Final Result IMPRESSION: 1. No acute fracture or traumatic malalignment. 2. Degenerative changes as above. I personally viewed and interpreted these images and I have reviewed and approved this report. CEREBRAL PERFUSION ANALYSIS Final Result IMPRESSION: Large perfusion defect involving the right MCA and reticular striate territories. Completed infarct core in the basal ganglia with large volume of ischemic penumbra. STROKE HEAD-STROKE ALERT ONLY Final Result IMPRESSION: Acute nonhemorrhagic infarct in the right basal ganglia lenticulostriate distribution. No significant intracranial mass effect. Findings were discussed with Ryley Licea at 3:06 PM on November 29, 2023. I personally viewed and interpreted these images and I have reviewed and approved this report. [facility] FOR NEURO ENDOVASCULAR (Results Pending) Assessment: Plan: Neuro #R ICA stroke s/p EVT w TCIC 2b w hemm tx of R BG on 11/29. Etiology ? CTA head/neck -ASA 81 -atorvastatin 40 -SBP<160 -normonatremia -CTA head/neck to repeat to follow up if evidence of ORQUIDEA in neck -PT/OT/NETBACKUP ADMINISTRATOR -LDL 130, Ahba1c 5.3 #pain/agitation/sedation -prn tylenol Cards #HTN -lisinopril 20 -coreg 6.25 bid -EKG: no afib -TTE: mild AR, nml EF -BP goal: -SBP<160, MAP>65 Pulm #no acitve issues O2 Sat (%): [95 %-99 %] 99 % O2 Device: nasal cannula Flow (L/min): [1] 1 -ABG: -CXR: repeat CXR if worsening resp requiriem Renal -Na goal: 135-145 -I/O goal:even -IVF: prn IVF bolus ID #+ blood cx, likely contaminant # pneumonia, treating fo CAP -repeat blood cx -trend WBC -Abx: ceftriaxone day 3/, fu respo cuslture, -Cultures:send resp culture, repeat blood cx GI -Diet/nutrition:TF -Last BM: 12/04 .Bowel Reg: senna, prn miralax. -Stress ulcer prophylaxis: Heme -DVT prophylaxis: lovenox 40 Endo -HbA1c: 5.3 -BS range: 120-180 Lines Patient Lines/Drains/Airways Status Active Lines, Drains, Airways, & Wound Overview Name Placement date Placement time Site Days Peripheral IV Line - Single Lumen 12/02/23 0015 median vein (underside of arm), right 22 gauge;1 3/4 in length 12/02/23 0015 -- 2 Peripheral IV Line - Single Lumen 12/04/23 0931 median vein (underside of arm), right 20 gauge;1 3/4 in length 12/04/23 0931 -- less than 1 Peripheral IV Line - Single Lumen 12/04/23 0932 median cubital vein (antecubital fossa), left 20 gauge;1 3/4 in length 12/04/23 0932 -- less than 1 External Catheter 12/04/23 0600 12/04/23 0600 -- less than 1 Naso/Oral Tube 11/30/23 0056 Nasoenteric feeding tube left nostril 11/30/23 0056 -- 4 Wound Sheath Site 11/29/23 1551 Right Femoral 11/29/23 1551 Femoral 4 Code Status/GOC #FULL code -HCP/NOK/Family: This patient is critically ill, unstable and is at high risk of imminent or life threatening deterioration requiring close neurologic and hemodynamic monitoring due to ishcemic stroke, hypertension requiring IV medicaitons. I personally spent 35 minutes in the intensive care unit providing critical care services to the patient today independent of procedures, teaching and other care providers. Management of the above was performed and detailed. My time managing this critically ill patient included review of interval history, laboratories, radiology and consultation reports; performing a physical examination; discussing the patient with the multi-disciplinary team and managing life sustaining therapies to prevent imminent clinical deterioration. Hayley Cardenas MD Neurocritical Care Attending Progression of Care Note Expected Discharge Date: tbd Medical Milestones RemaininL NC; cardene gtt; ceftriaxone (monitoring pneumonia); DHT - TF; dorie mitts; Na monitoring; repeat CTH 12/03 - evolving infarct R RUBY/MCA, stable BG petechial hemorrhage; PT/OT following, NETBACKUP ADMINISTRATOR following Assessment and Discharge Plan as of 12/04/2023 9:38 AM Anticipated discharge disposition: [facility] Facility Anticipated Services at Discharge: Speech Therapy, Outpatient follow up, Physical Therapy, Occupational Therapy, [facility], Enteral supplies Barriers to Discharge: Complex Disposition Explanation of Barriers: wean O2 as able; IV abx; monitor BP; restraints; NETBACKUP ADMINISTRATOR following; monitor Na; await repeat imaging; PT/OT/NETBACKUP ADMINISTRATOR following - rec SNF, referrals sent Makenzie Flores RN, BSN Clinical Strategic Partnership Representative [facility] Acute [facility] Speech Language Pathology Treatment Diet Recommendations: Recommended Method of Nutrition: NPO, Short-term alternate nutrition Recommended Medication Administration (as appropriate per MD): Non-Oral Type of Cues/Supervision: 1:1 supervision Assistance: family, nurse/aide *Consider ice chips following oral care, given strict 1:1 RN supervision to assist in secretions clearance and reduce risk of disuse atrophy. *To prevent potential development of aspiration pneumonia/nosocomial infections, RECOMMEND: Oral care routine q4h and HOB upright as tolerated Discharge Recommendations: Based on the below outcome measures/assessment score(s) and NETBACKUP ADMINISTRATOR clinical judgment, discharge destination recommendation is: Pending instumental swallow assessment Barriers to discharge home: Cognitive impairments that impact safety and independence, 1:1 assist needed for IADL's including medication management and finances Supporting factors for discharge setting: Impaired swallow function limiting nutritional status and safety with oral intake, Impaired cognitive skills limiting safety/insight Acute NETBACKUP ADMINISTRATOR Outcomes Tracking Communicate basic wants and needs?: yes Demo insight/appreciation of deficits?: no Complete basic problem solving?: no Current therapy frequency recommendation in acute: Speech/Lang/Cog Therapy Frequency: 3 times a week Swallow Therapy Frequency: 5 times a week Clinical Impression: Mild-moderate anticipatory phase deficits that improved with opportunities for practice, oral dysphagia with anterior spillage and pocketing to left. Overt coughs concerning for pharyngeal dysphagia. Given inconsistent acceptance for liquids, not yet appropriate for instrumental but progressing. Improved ability to express her wants/needs. Difficulty to differentiate if her impaired orientation at this time is 2/2 impaired recall vs a language deficit. Subjective information: Alerted to name cues, RN reported improved alertness compared to the weekend Pain: Nonverbal indicator not present Precautions: Patient Safety Communication Prior to Visit: Nursing, Physician Lines/Tubes/Drains (Rehab Status): Telemetry Existing Precautions/Restrictions: fall, NPO Respiratory Status: O2 Sat (%): 94 % (12/04 1100) O2 Device: room air (12/04 1000) Acute NETBACKUP ADMINISTRATOR Goals Plan of Care by AMADO Solis at 12/04/2023 12:37 PM Version 1 of 1 Problem: Dysphagia Goal: Ongoing Assessment - Patient will participate in ongoing assessment by accepting various PO consistency trials with appropriate participation/oral acceptance and no significant respiratory complications to determine readiness for po diet vs instrumental Addressed via ice x3, water via tsp x3, pipette x5 and straw x5 and puree 5 tsps. Functional acceptance by tsp with reduced coordination of straw sips. Utilization of right UE to self-feed was ineffective to increase acceptance. Pipette to facilitate labial seal around straw and subsequent trials was effective with repetition. Unable to fade as she required additional pipettes after 2 straw sips. Pt reported this was "discouraging" and benefits from positive feedback. Outcome: Ongoing Problem: NETBACKUP ADMINISTRATOR - Cognition Goal: Ongoing Assessment - Patient will participate in ongoing dynamic assessment of motor speech, expressive/receptive language, and cognitive-linguistic skills across 1 session to better assess deficits and most appropriately guide NETBACKUP ADMINISTRATOR plan of care Addressed via engaging in personal communication and goal for care planning - patient endorsed general goals of "going home." However, not insightful of situation enough to engage in goal setting. Able to express her wants/needs to shifted to problem solving in her environment - unable to utilize call light. Initiated errorless learning with the goal of transition to spaced retrieval. However, unable to fade prompts longer than 15 seconds at this time. Suspect a combination of acute on chronic breakdowns. Outcome: Ongoing Goal: Orientation Log - Patient will recall/implement use of orientation strategies, with maximum cues per assessment protocol, to demonstrate improved awareness and insight as measured by achieving a 25/30 on the O-Log The Orientation Log (O-Log) is designed to be a quick quantitative measure of orientational status for use at bedside with rehabilitation inpatients. Place, time, and situational (Etiology/Event + Pathology/Deficits) domains are assessed. Patient responses are scored according to the following criteria: 3 = correct spontaneously or upon first free recall attempt; 2 = correct upon logical cueing (e.g., "That was yesterday, so today must be "); 1 = correct upon multiple choice or phonemic cuing; and 0 = incorrect despite cueing, inappropriate response, or unable to respond. Prompt Score [facility]: incorrect despite cueing, inappropriate response or unable to respond. Kind of Place Kind of Place: correct spontaneously or upon first free recall attempt Name of Hospital Name of Hospital: incorrect despite cueing, inappropriate response or unable to respond. Month Month: correct upon multiple choice or phonemic cueing Date Date: correct upon multiple choice or phonemic cueing Year Year: correct upon multiple choice or phonemic cueing Day of Week Day of Week: correct upon logical cueing Clock Time Clock Time: incorrect despite cueing, inappropriate response or unable to respond. Etiology/Event Etiology / Event: incorrect despite cueing, inappropriate response or unable to respond. Pathology/Deficits Pathology Deficits: incorrect despite cueing, inappropriate response or unable to respond. Total Total Score: 8/30 Obtained a baseline - will continue with dynamic assessment, though unclear if 25/30 is an achievable goal ( leaving open as suspect there is potential given chart report of relative independence prior to admission despite dementia diagnosis) Outcome: Ongoing Care plan updated. Patient Instruction/Education this session: Role of NETBACKUP ADMINISTRATOR in acute, increasing ice chips for swallow frequency and to prevent disuse, goal to progress to instrumental when she feels more confident to accept liquids Plan for next session: bolus challenge trials to increase automaticity of acceptance NETBACKUP ADMINISTRATOR Outcomes: FOIS2 Speech Language Pathologist: AMADO Solis Time In: 45 Time Out: 0810 Total Visit Time: 25 minutes Total Treatment Time (skilled, billable minutes): 25 minutes Non-billable assistance during session: na Assisted by during session: na PPE used during patient interaction: facemask, gloves Patient location/status at end of session: bed with head of bed elevated Patient alarms at end of session: none altered Needs in reach. NETBACKUP ADMINISTRATOR Evaluation and Treatment Time Speech Therapy - Individual 48993: 10 Swallowing Dysfunction Treatment 36187: 15 Upon discontinuation of Acute Care Speech Therapy Services or patient discharge from the hospital this note represents the current Speech Therapy Discharge Summary NEUROCRITICAL CARE PROGRESS NOTE HOSPITAL VISIT DEMOGRAPHICS Patient: Aroldo Vargas Code status: Full Code Admission date: 11/29/2023 2:45 PM Hospital days: LOS: 4 days CHIEF COMPLAINT RMCA stroke s/p mechanical thrombectomy HISTORY OF PRESENT ILLNESS Aroldo Vargas is a 78 y.o. female with a past history of HTN, HLD, CAD, dementia, TIA who presented to [facility] with acute onset L hemiplegia, L facial droop, and slurred speech concerning for a RMCA stroke. She was found by her family this morning with symptoms and her LKW was 2145 on 11/28. She was seen at an OSH with telestroke evaluation. Initial NIHSS was 8. CTA positive for HERVE occlusion and [facility] for [facility]. No IV thrombolytics as she was outside the window. On arrival to [facility], her NIH was 16. CTH was showing evolving RMCA territory stroke and CTP was positive for RMCA mismatch. MRS 2, limited by inability to manage her finances due to memory difficulties. She was take to the OR emergently for mechanical thrombectomy with TICI 2b revascularization of a long segment occlusion of HERVE to RM2. She admitted to the NCCU for post-stroke management INTERVAL HISTORY SINCE ADMISSION 11/29/2023: Admit to NCCU 11/30/2023: acute decline in exam; contrast extravasation vs. Hemorrhage on CT; taken for dual energy CT 12/01: no acute events 12/02: exam change overnight, slight increased edema of CTH. Na goal 145-150, HTS boluses x2. Fever 101.1, infectious workup, Ceftriaxone for possible asp pneumonia. 12/03: rCTH read pending PHYSICAL EXAM GENERAL: Lethargic, no acute distress HEENT: normocephalic CARDIO: RRR, no edema PULM: clear/diminished to auscultation bilaterally, equal chest rise; no secretions noted ABDOMINAL: soft, nontender, nondistended, active bowel sounds EXTREMITIES: no wounds or lesions noted VASCULAR: 2+ distal pulses, capillary refill <3 seconds NEURO: arouses to voice/stimuli, need promoting to attempt eye opening, ?eye lid apraxia. R gaze preference. Unable to assess EOM, does not attend. L side neglect. Follows commands on R. RUE/RLE spontaneous, LUE/LLE withdraws. ASSESSMENT AND PLAN Neuro: (11/29/2023) 4 Days Post-Op s/p mechanical thrombectomy, TICI 2b for HERVE/MCA ischemic stroke (11/29/23) Acute R RUBY/MCA CVA with R BG hemorrhagic conversion Left hemiplegia Dysarthria - Initial CVA Management: - 11/29/23 Stroke alert performed; summary of imaging findings: NIHSS 16 with R MCA stroke - No IV thrombolytics with LKW 2145 on 11/28/23, outside window for administration - 11/29/23 NSGY consulted for thrombectomy, performed and obtained TICI 2B revascularization Imaging: - 11/29 CT H: acute nonhemorrhagic infarct in the R basal ganglia - 11/30: CTA Over-read: 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 There is distal reconstitution of several right middle cerebral artery branches, likely related to collateral flow. Occlusion of the right M1 segment with distal reconstitution, as above. Short segment of occlusion of the proximal right A1 segment. Remainder of the anterior cerebral arteries are patent, without significant stenosis. - 11/30: CT Head: evolving R MCA infarct - new hyper densities involving the right basal ganglia (rule out hemorrhage vs. Contrast extravasation). A more focal and hyperdense component involves the R GPI - 11/30 (interval scan): stable - 11/30 MRI B: R RUBY/MCA infracts with hemorrhagic conversion in R BG with small volume of IVH, mass effect with mild shift of 2 mm - 12/01 CTH overnight: evolving R RUBY/MCA infarct with stable petechial hemorrhage in R BG. Mildly progressed edema with shift to 4 mm. - Repeat CTH 12/03 - Ongoing CVA management: - Monitor neurostatus with neurochecks Q2H and pupilometer Q2H - Prevent cerebral hypoperfusion with goal SBP <160 (see cards) - antiplatelet therapy: ASA 81 mg held given hemorrhagic conversion - will resume ASA 81mg on 12/05 5 days post bleed - Cytotoxic Cerebral Edema Management: - Goal Na 145-150; monitor Na Q6H - 12/02: Mannitol 90 g for exam change given overnight - 12/02: HTS bolus 250 mL x2 for sodium goal given Recent Labs 12/01/23 0107 12/02/23 0427 12/02/23 1444 12/02/23 2314 12/03/23 0507 SODIUM 144 139 142 145 145 OSMOLALITY 303 297 -- 309* -- CHLORIDE 109* 106 -- 112* -- - Stroke etiology presumed to be atherothrombotic based on the TOAST Criteria. Stroke risk factors include CAD, hypercholesterolemia, and hypertension. - Completed TTE (see cards) - LDL 130 and statin therapy started - HA1C 5.3 - antiplatelet therapy: see above - VTE prophylaxis: Lovenox - Pain management - Tylenol 650mg Q4H PRN Psych: Dementia - hold home Rivastigmine 3 mg BID Pulm: No Current Issues O2 Sat (%): 98 % (12/03 1000) O2 Device: nasal cannula (12/03 08) Flow (L/min): 1 (12/03 08) - Goal SpO2 >92%; wean FiO2 as tolerated - - [id number], encourage aggressive IS Imaging - 11/29 CXR: no acute process (performed at OSH) - 12/02 CXR: New bibasilar atelectasis Cards: Essential HTN HLD CAD Temp: [98.4 F (36.9 C)-99.3 F (37.4 C)] 99.1 F (37.3 C) Pulse (Heart Rate): [63-94] 68 Resp Rate: [21-50] 27 BP: (124-200)/(58-117) 138/86 O2 Sat (%): [92 %-98 %] 98 % - Goal SBP <160, MAP >65 HTN - Home antihypertensives: metoprolol 200 mg XL daily (held) - Current meds: - PRN labetalol and hydralazine - Lisinopril 10mg daily - Metoprolol 25 mg Q12H - Cardene gtt, wean as able HLD - LDL 130 - atorvastatin 40mg daily Imaging/diagnostics - 11/30 TTE: No prior study for comparison. Left Ventricle: Chamber size is normal. Increased wall thickness. Concentric remodeling is present. Normal global systolic function. Regional wall motion is normal. Ejection fraction is hyperdynamic (>70%). Diastolic function could not be determined. Right Ventricle: Chamber size is normal. Systolic function is normal. Left Atrium: Chamber size is normal. Aortic Valve: Trileaflet valve. Leaflet mobility is normal. Mild regurgitation. No stenosis. Mitral Valve: Normal appearing leaflets. Leaflet mobility is normal. Moderate posterior annular calcification. Mild regurgitation. No valve stenosis. Tricuspid Valve: Normal leaflets. Leaflet mobility is normal. Trace regurgitation. No stenosis. Poor tricuspid regurgitation jet may not accurately reflect right ventricular systolic pressure. - 11/30 troponin: 110 --> 84 - 11/30 ECG: NSR Renal/: Hypophosphatemia Hypocalcemia - Fluid Balance: - Goal: euvolemia Intake/Output Summary (Last 24 hours) at 12/03/2023 1223 Last data filed at 12/03/2023 1130 Gross per 24 hour Intake 1725.67 ml Output 1135 ml Net 590.67 ml - Daily Chem 10; electrolytes replaced per N[facility]U protocol Recent Labs 12/02/23 0427 12/02/23 1444 12/02/23 2314 12/03/23 0507 SODIUM 139 142 145 145 POTASSIUM 4.9 -- 3.9 -- CHLORIDE 106 -- 112* -- CO2 25 -- 25 -- BUN 19 -- 24 -- CREATSERUM 0.54 -- 0.51 -- MAGNESIUM 1.9 -- 2.1 -- PHOSPHORUS 1.5* -- 3.3 -- ICA -- 4.51* 4.61 -- GI/Nutrition: Dysphagia secondary to ischemic stroke No results for input(s): "ALBUMIN", "BILIDIRECT", "BILITOTAL", "ALKPHOS", "ALT", "AST", "TP", "AMYLASE", "LIPASE" in the last 72 hours. - DIET NPO AND TUBE FEEDING with meds - Johnson Swallow Screening Result: excluded from swallow screen = NPO - Placed Dobhoff tube -- Tube feed: Vital AF 1.2 goal rate 55 cc/hr - Body mass index is 37.02 kg/m . - Bowel regimen: - BID senna and miralax - Suppository x1 12/03 - Last Bowel Movement: 11/28/23 Endo: No Current Issues - Goal blood glucose 140-180 Recent Labs 12/01/23 0107 12/02/23 0427 12/02/23 2314 GLUCOSE 119* 138* 155* - CTM need for SSI ID: Leukocytosis, concern for aspiration pneumonia Febrile Recent Labs 12/02/23 0410 12/02/23 2314 WBC 15.46* 16.35* - Temp (24hrs), Av.8 F (37.1 C), Min:98.4 F (36.9 C), Max:99.3 F (37.4 C) - PRN Tylenol for T>100.4F - Most recent and positive cultures: Date Collected Source Result Date Finalized 12/02 Nasal staph swab Pend 12/02 UA with reflex negative UA 12/02 Peripheral blood x2 pend - Antiinfectives: Start Date Antiinfective Coverage Course Length Stop Date 12/02 Ceftriaxone Asp pna TBD Heme/Onc: No Current Issues Recent Labs 12/02/23 0410 12/02/23 2314 WBC 15.46* 16.35* RBC 3.62* 3.57* HGB 11.1* 11.1* HCT 34.1* 34.1* PLATELET 248 255 - Goal plt >100, INR <1.4, Hgb >7 - OR EBL: 0mL Musc: No Current Issues - PT/OT consulted and following - Current Activity Order: AAT Social/Dispo: - Code status: Full Code - HCPOA/LNOK: Dina Carlisle - 12/02: daughter updated on plan of care, question answered - Medications reconciled - Discharge planning per PCRM/SW. Complexity. Obesity Body mass index is 37.02 kg/m . - Follow with PCP for dietary and lifestyle modifications. Any conditions listed below are present on admission unless otherwise specified. .Ischemic CVA, Location: [facility] - 11/29/23 Dementia - monitor and treat as needed ICU Checklist: [ ] CAM-ICU [ ] SAT [ ] SBT [ x] DVT ppx; [x ] SCDs; [ x] Lovenox- start 12/02, [ ] heparin [ ] Stress ulcer prophylaxis: none (indication: n/a) - Lines/Tubes: Castellanos inserted 12/01 (indication: I&O) Enteral access: inserted 11/30, [ ] gastric; [ x] post-pyloric Discussed with NCCU Attending, Dr. Gio Flores MD Service pager: [phone] Service [place] #: [id number] (Beds [phone] and beds), [place] #: [id number] (Beds [phone] and [facility]) 12/03/23 12:23 PM I have independently seen and examined the patient on 12/03/23. I agree with the history, examination, assessment and plan as documented by the resident with my changes/additions added. Patient is a 78 yo F with a hx of HTN, CAD, HLD who presented with acute L sided weakness and facial droop. Outside the window for lytics. CTA revealed long segment occlusion of R ICA to R M2 s/p MT with TICI2B revascularization Interval History: 11/20 blood cx was positive for staph hominis. On low dose Nicardipine Scheduled Meds: [Held by provider] aspirin 81 mg Per NG tube Daily Atorvastatin 40 mg Per NG tube QHS cefTRIAXone 2 g Intravenous Q24H enoxaparin 40 mg Subcutaneous Daily Lisinopril 5 mg Per NG tube Daily Metoprolol 25 mg Per NG tube Q12H Polyethylene glycol 17 g Per NG tube Daily Senna 8.6 mg Per NG tube QAM Labs: Chem 7: Lab Results Component Value Date SODIUM 145 12/03/2023 POTASSIUM 3.9 12/02/2023 CHLORIDE 112 (H) 12/02/2023 CO2 25 12/02/2023 GLUCOSE 155 (H) 12/02/2023 BUN 24 12/02/2023 CREATSERUM 0.51 12/02/2023 BUNCREARATIO 47 12/02/2023 OSMOLALITY 309 (H) 12/02/2023 GFR >90 12/02/2023 CBC: Lab Results Component Value Date WBC 16.35 (H) 12/02/2023 HGB 11.1 (L) 12/02/2023 HCT 34.1 (L) 12/02/2023 PLATELET 255 12/02/2023 MCV 95.5 12/02/2023 Physical Exam: Vital Signs: Blood pressure 179/79, pulse 86, temperature 98.6 F (37 C), resp. rate (!) 25, height 1.575 m (5' 2"), weight 91.8 kg (202 lb 6.1 oz), SpO2 97 %. General: no acute distress HEENT: normocephalic, atraumatic Cardiovascular: +S1S2, RRR, no edema, + distal pulses, capillary refill < 3 seconds Pulmonary: Reduced to auscultate at bilateral bases Abdominal: soft, nontender, nondistended, active bowel sounds Extremities: no wounds nor lesions Skin: no rash or obvious skin abnormalities Neurology: Lethargic, eyelid apraxia, able to tell her name, right gaze preference but able to cross midline, follows commands on the right, withdrawal to deep noxious on the LLE, extends on the LUE Assessment and Plan: Neurology: Acute R MCA/RUBY ischemic stroke due to long segment occlusion of R ICA to R M2 s/p MT with TICI2B revascularization Cytotoxic cerebral edema with mass effect R BG hemorrhagic transformation - Neurochecks with pupillometer - SBP goal <160, MAP >65, Na 145 -150 with 3% HTS, Na checks q6h - Most recent CTH demonstrated stable bleed, mild MLS, brain MRI demonstrated the MCA/RUBY stroke - Resume ASA on day 5 after the bleed (tomorrow) - Statin for secondary stroke prevention Pulmonary: Close airway watch, at risk for airway loss and intubation Oxygen Therapy O2 Sat (%): 97 % O2 Device: nasal cannula Flow (L/min): 1 Cardiovascular: Essential HTN CAD, HLD - SBP goal< 160, MAP goal >65. PRN Hydralazine and Labetalol - TTE with EF of >70% - Normal sinus rhythm on EKG - Hold ASA as above. Metoprolol and up on Lisinopril, wean Cardene gtt - Statin Nephrology: - Maintain euvolemia GI/Nutrition: - TF - Bowel regimen to prevent constipation. Supp today Endocrinology: - Goal blood glucose 140-180. SSI ID: Continue ceftriaxone for empiric coverage of aspiration pneumonia 1/2 blood Cx with staph hominis, likely contamination, repeat blood Cx. Watch closely - Dc Castellanos, UA is ok - PRN Tylenol for T>100.4F Heme/Onc: - Goal plt >100, INR <1.4, Hgb >7 - VTE prophylaxis: - SCDs - Chemical prophylaxis - LVX Acute deconditioning - PT/OT consulted and following - Mobility as tolerated Additional details and other supportive care as per the resident note from the same day This patient is critically ill, unstable and is at high risk of imminent or life threatening deterioration due to acute R MCA/RUBY ischemic stroke due to R ICA occlusion, cytotoxic cerebral edema, hemorrhagic transformation in the R BG, aspiration pneumonia requiring close neurologic and hemodynamic monitoring, hyperosmolar therapy, close airway watch, at risk for airway loss and intubation. I personally spent 31 minutes in the intensive care unit providing critical care services to the patient today independent of procedures, teaching and other care providers. Management of the above was performed. My time managing this critically ill patient included review of interval history, laboratories, radiology and consultation reports; performing a physical examination; discussing the patient with the multi-disciplinary team and managing life sustaining therapies to prevent imminent clinical deterioration. Christian Powers MD Neurocritical Care Attending I have independently seen and examined the patient on 12/02/23. I agree with the history, examination, assessment and plan as documented by the DOOR LINER HELPER with my changes/additions added. Patient is a 78 yo F with a hx of HTN, CAD, HLD who presented with acute L sided weakness and facial droop. Outside the window for lytics. CTA revealed long segment occlusion of R ICA to R M2 s/p MT with TICI2B revascularization Interval History: Lethargic overnight, CTH with slight increase in the edema, received Mannitol. Fever overnight Scheduled Meds: Sodium chloride 0.9% [Held by provider] aspirin 81 mg Per NG tube Daily Atorvastatin 40 mg Per NG tube QHS enoxaparin 40 mg Subcutaneous Daily Lisinopril 5 mg Per NG tube Daily Mannitol 20% Mannitol 20% Mannitol 20% Metoprolol 25 mg Per NG tube Q12H Polyethylene glycol 17 g Per NG tube Daily Senna 8.6 mg Per NG tube QAM Labs: Chem 7: Lab Results Component Value Date SODIUM 139 12/02/2023 POTASSIUM 4.9 12/02/2023 CHLORIDE 106 12/02/2023 CO2 25 12/02/2023 GLUCOSE 138 (H) 12/02/2023 BUN 19 12/02/2023 CREATSERUM 0.54 12/02/2023 BUNCREARATIO 35 12/02/2023 OSMOLALITY 297 12/02/2023 GFR >90 12/02/2023 CBC: Lab Results Component Value Date WBC 15.46 (H) 12/02/2023 HGB 11.1 (L) 12/02/2023 HCT 34.1 (L) 12/02/2023 PLATELET 248 12/02/2023 MCV 94.2 12/02/2023 Physical Exam: Vital Signs: Blood pressure 133/62, pulse 89, temperature 100.8 F (38.2 C), resp. rate 20, height 1.575 m (5' 2"), weight 91.8 kg (202 lb 6.1 oz), SpO2 95 %. General: no acute distress HEENT: normocephalic, atraumatic Cardiovascular: +S1S2, RRR, no edema, + distal pulses, capillary refill < 3 seconds Pulmonary: Reduced to auscultate at bilateral bases Abdominal: soft, nontender, nondistended, active bowel sounds Extremities: no wounds nor lesions Skin: no rash or obvious skin abnormalities Neurology: Lethargic, eyelid apraxia, able to tell her name, right gaze preference but able to cross midline, follows commands on the right, withdrawal to deep noxious on the LLE, extends on the LUE Assessment and Plan: Neurology: Acute R MCA/RUBY ischemic stroke due to long segment occlusion of R ICA to R M2 s/p MT with TICI2B revascularization Cytotoxic cerebral edema with mass effect R BG hemorrhagic transformation - Neurochecks with pupillometer - SBP goal <160, MAP >65, Na 145 -150 with 3% HTS, Na checks - Most recent CTH demonstrated stable bleed, mild progression in edema, brain MRI demonstrated the MCA/RUBY stroke - Consider resuming ASA on day 3-5 after the bleed - Statin for secondary stroke prevention Pulmonary: Close airway watch, at risk for airway loss and intubation Oxygen Therapy O2 Sat (%): 95 % O2 Device: nasal cannula Flow (L/min): 1 - CXR today Cardiovascular: Essential HTN CAD, HLD - SBP goal< 160, MAP goal >65. PRN Hydralazine and Labetalol - TTE with EF of >70% - Normal sinus rhythm on EKG - Hold ASA as above. Metoprolol and Lisinopril - Statin Nephrology: - Maintain euvolemia GI/Nutrition: - TF - Bowel regimen to prevent constipation Endocrinology: - Goal blood glucose 140-180. SSI ID: Fever, leukocytosis. Start empiric ceftriaxone to cover for aspiration pneumonia - Send UA and Blood Cx - PRN Tylenol for T>100.4F Heme/Onc: - Goal plt >100, INR <1.4, Hgb >7 - VTE prophylaxis: - SCDs - Chemical prophylaxis - LVX Acute deconditioning - PT/OT consulted and following - Mobility as tolerated Additional details and other supportive care as per the DOOR LINER HELPER note from the same day This patient is critically ill, unstable and is at high risk of imminent or life threatening deterioration due to acute R MCA/RUBY ischemic stroke due to R ICA occlusion, cytotoxic cerebral edema, hemorrhagic transformation in the R BG, aspiration pneumonia requiring close neurologic and hemodynamic monitoring, hyperosmolar therapy, close airway watch, at risk for airway loss and intubation. I personally spent 32 minutes in the intensive care unit providing critical care services to the patient today independent of procedures, teaching and other care providers. Management of the above was performed. My time managing this critically ill patient included review of interval history, laboratories, radiology and consultation reports; performing a physical examination; discussing the patient with the multi-disciplinary team and managing life sustaining therapies to prevent imminent clinical deterioration. Christian Powers MD Neurocritical Care Attending NEUROCRITICAL CARE PROGRESS NOTE HOSPITAL VISIT DEMOGRAPHICS Patient: Aroldo Vargas Code status: Full Code Admission date: 11/29/2023 2:45 PM Hospital days: LOS: 3 days CHIEF COMPLAINT RMCA stroke s/p mechanical thrombectomy HISTORY OF PRESENT ILLNESS Aroldo Vargas is a 78 y.o. female with a past history of HTN, HLD, CAD, dementia, TIA who presented to [facility] with acute onset L hemiplegia, L facial droop, and slurred speech concerning for a RMCA stroke. She was found by her family this morning with symptoms and her LKW was 2145 on 11/28. She was seen at an OSH with telestroke evaluation. Initial NIHSS was 8. CTA positive for HERVE occlusion and transferred to [facility] for mechanical thrombectomy. No IV thrombolytics as she was outside the window. On arrival to [facility], her NIH was 16. CTH was showing evolving RMCA territory stroke and CTP was positive for RMCA mismatch. MRS 2, limited by inability to manage her finances due to memory difficulties. She was take to the OR emergently for mechanical thrombectomy with TICI 2b revascularization of a long segment occlusion of HERVE to RM2. She admitted to the NCCU for post-stroke management INTERVAL HISTORY SINCE ADMISSION 11/29/2023: Admit to NCCU 11/30/2023: acute decline in exam; contrast extravasation vs. Hemorrhage on CT; taken for dual energy CT 12/01: no acute events 12/02: exam change overnight, slight increased edema of CTH. Na goal 145-150, HTS boluses x2. Fever 101.1, infectious workup, Ceftriaxone for possible asp pneumonia. PHYSICAL EXAM GENERAL: Lethargic, no acute distress HEENT: normocephalic CARDIO: RRR, no edema PULM: clear/diminished to auscultation bilaterally, equal chest rise; no secretions noted ABDOMINAL: soft, nontender, nondistended, active bowel sounds EXTREMITIES: no wounds or lesions noted VASCULAR: 2+ distal pulses, capillary refill <3 seconds NEURO: arouses to voice/stimuli, need promoting to attempt eye opening, ?eye lid apraxia. R gaze preference. Unable to assess EOM, does not attends. Follows commands on R. Oriented to self and place only when given options. RUE/RLE spontaneous, LUE/LLE withdraws. ASSESSMENT AND PLAN Neuro: (11/29/2023) 3 Days Post-Op s/p mechanical thrombectomy, TICI 2b for HERVE/MCA ischemic stroke (11/29/23) Acute R RUBY/MCA CVA with R BG hemorrhagic conversion Left hemiplegia Dysarthria - Initial CVA Management: - 11/29/23 Stroke alert performed; summary of imaging findings: NIHSS 16 with R MCA stroke - No IV thrombolytics with LKW 2145 on 11/28/23, outside window for administration - 11/29/23 NSGY consulted for thrombectomy, performed and obtained TICI 2B revascularization Imaging: - 11/29 CT H: acute nonhemorrhagic infarct in the R basal ganglia - 11/30: CTA Over-read: 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 There is distal reconstitution of several right middle cerebral artery branches, likely related to collateral flow. Occlusion of the right M1 segment with distal reconstitution, as above. Short segment of occlusion of the proximal right A1 segment. Remainder of the anterior cerebral arteries are patent, without significant stenosis. - 11/30: CT Head: evolving R MCA infarct - new hyper densities involving the right basal ganglia (rule out hemorrhage vs. Contrast extravasation). A more focal and hyperdense component involves the R GPI - 11/30 (interval scan): stable - 11/30 MRI B: R RUBY/MCA infracts with hemorrhagic conversion in R BG with small volume of IVH, mass effect with mild shift of 2 mm - 12/01 CTH overnight: evolving R RUBY/MCA infarct with stable petechial hemorrhage in R BG. Mildly progressed edema with shift to 4 mm. - Repeat CTH 12/03 - Ongoing CVA management: - Monitor neurostatus with neurochecks Q2H and pupilometer Q2H - Prevent cerebral hypoperfusion with goal SBP <160 (see cards) - antiplatelet therapy: ASA 81 mg held given hemorrhagic conversion - consider resuming ASA 12/03 pending CTH - Cytotoxic Cerebral Edema Management: - Goal Na 145-150; monitor Na Q6H - 12/02: Mannitol 90 g for exam change given overnight - 12/02: HTS bolus 250 mL x2 for sodium goal given Recent Labs 11/29/23 1502 11/30/23 0152 12/01/23 0107 12/02/23 0427 SODIUM 140 144 144 139 OSMOLALITY 294 303 303 297 CHLORIDE 106 106 109* 106 - Stroke etiology presumed to be atherothrombotic based on the TOAST Criteria. Stroke risk factors include CAD, hypercholesterolemia, and hypertension. - Completed TTE (see cards) - LDL 130 and statin therapy started - HA1C 5.3 - antiplatelet therapy: see above - VTE prophylaxis: Lovenox - Pain management - Tylenol 650mg Q4H PRN Psych: Dementia - hold home Rivastigmine 3 mg BID Pulm: No Current Issues O2 Sat (%): 93 % (12/02 0630) O2 Device: nasal cannula (12/02 0545) Flow (L/min): 1 (12/02 0545) - Goal SpO2 >92%; wean FiO2 as tolerated - - [id number], encourage pulmonary toileting Imaging - 11/29 CXR: no acute process (performed at OSH) - 12/02 CXR: New bibasilar atelectasis Cards: Essential HTN HLD CAD Temp: [98.7 F (37.1 C)-99.6 F (37.6 C)] 99.6 F (37.6 C) Pulse (Heart Rate): [75-116] 109 Resp Rate: [18-34] 33 BP: (110-202)/(55-124) 145/73 O2 Sat (%): [92 %-99 %] 93 % - Goal SBP <160, MAP >65 HTN - Home antihypertensives: metoprolol 200 mg XL daily - Current meds: - PRN labetalol and hydralazine - 12/01 Lisinopril 5 mg daily started - Metoprolol 25 mg Q12H - Cardene gtt, wean as able HLD - LDL 130 - atorvastatin 40mg daily Imaging/diagnostics - 11/30 TTE: No prior study for comparison. Left Ventricle: Chamber size is normal. Increased wall thickness. Concentric remodeling is present. Normal global systolic function. Regional wall motion is normal. Ejection fraction is hyperdynamic (>70%). Diastolic function could not be determined. Right Ventricle: Chamber size is normal. Systolic function is normal. Left Atrium: Chamber size is normal. Aortic Valve: Trileaflet valve. Leaflet mobility is normal. Mild regurgitation. No stenosis. Mitral Valve: Normal appearing leaflets. Leaflet mobility is normal. Moderate posterior annular calcification. Mild regurgitation. No valve stenosis. Tricuspid Valve: Normal leaflets. Leaflet mobility is normal. Trace regurgitation. No stenosis. Poor tricuspid regurgitation jet may not accurately reflect right ventricular systolic pressure. - 11/30 troponin: 110 --> 84 - 11/30 ECG: NSR Renal/: Hypophosphatemia Hypocalcemia - Fluid Balance: - Goal: euvolemia Intake/Output Summary (Last 24 hours) at 12/02/2023 0712 Last data filed at 12/02/2023 0615 Gross per 24 hour Intake 2267.54 ml Output 1950 ml Net 317.54 ml - Daily Chem 10; electrolytes replaced per NCCU protocol Recent Labs 11/29/23 1502 11/30/23 0152 12/01/23 0107 12/02/23 0332 12/02/23 0427 SODIUM 140 144 144 -- 139 POTASSIUM 3.9 4.0 3.9 -- 4.9 CHLORIDE 106 106 109* -- 106 CO2 25 27 27 -- 25 BUN 14 14 18 -- 19 CREATSERUM 0.71 0.71 0.65 -- 0.54 MAGNESIUM -- 2.0 -- -- 1.9 PHOSPHORUS -- -- -- -- 1.5* ICA -- -- -- 4.03* -- CPK 82 -- -- -- -- GI/Nutrition: Dysphagia secondary to ischemic stroke Recent Labs 11/30/23 0152 ALBUMIN 3.4* BILIDIRECT 0.2 BILITOTAL 0.9 ALKPHOS 80 ALT 8* AST 16 TP 6.4 - DIET NPO AND TUBE FEEDING with [facility] - [facility] Swallow Screening Result: excluded from swallow screen = NPO - Placed Dobhoff tube -- Tube feed: Vital AF 1.2 10-55 cc/hr --> goal rate 55 cc/hr - Body mass index is 37.02 kg/m . - Bowel regimen: - Senna daily, miralax daily (added 12/02) - Last Bowel Movement: (cryptanalyst) Endo: No Current Issues - Goal blood glucose 140-180 Recent Labs 11/29/23 2305 11/30/23 0152 12/01/23 01012/02/23 0427 GLUCOSE 118* 132* 119* 138* HGBA1C -- 5.3 -- -- - Insulin SSI not currently needed ID: Leukocytosis, concern for aspiration pneumonia Febrile Recent Labs 12/01/2310612/02/23 0410 WBC 14.34* 15.46* - Temp (24hrs), Av F (37.2 C), Min:98.7 F (37.1 C), Max:99.6 F (37.6 C) - PRN Tylenol for T>100.4F - Most recent and positive cultures: Date Collected Source Result Date Finalized 12/02 Nasal staph swab Pend 12/02 UA with reflex negative UA 12/02 Peripheral blood x2 pend - Antiinfectives: Start Date Antiinfective Coverage Course Length Stop Date 12/02 Ceftriaxone Asp pna TBD Heme/Onc: No Current Issues Recent Labs 11/29/23 1502 11/30/23 0152 12/01/23 01012/02/23 0410 WBC 13.74* < > 14.34* 15.46* RBC 4.81 < > 3.69* 3.62* HGB 14.7 < > 11.2* 11.1* HCT 45.8* < > 35.1 34.1* PLATELET 242 < > 222 248 PT 12.7 -- -- -- PTT 27.1 -- -- -- INR 1.0 -- -- -- < > = values in this interval not displayed. - Goal plt >100, INR <1.4, Hgb >7 - OR EBL: 0mL Musc: No Current Issues - PT/OT consulted and following - Current Activity Order: AAT Social/Dispo: - Code status: Full Code - HCPOA/LNOK: Dina Carlisle - 12/02: daughter updated on plan of care, question answered - Medications reconciled - Discharge planning per PCRM/SW. Complexity. Hypophosphatemia - Continue to monitor and replete. Obesity Body mass index is 37.02 kg/m . - Follow with PCP for dietary and lifestyle modifications. Any conditions listed below are present on admission unless otherwise specified. .Ischemic CVA, Location: [facility] - 11/29/23 Dementia - monitor and treat as needed ICU Checklist: [ ] CAM-ICU [ ] SAT [ ] SBT [ x] DVT ppx; [x ] SCDs; [ x] Lovenox- start 12/02, [ ] heparin [ ] Stress ulcer prophylaxis: none (indication: n/a) - Lines/Tubes: Castellanos inserted 12/01 (indication: I&O) Enteral access: inserted 11/30, [ ] gastric; [ x] post-pyloric Discussed with NCCU Attending, MATTHEW Brown Service pager: [phone] Service [place] #: [id number] (Beds [phone] and beds), [place] #: [phone] (Beds [phone] and [facility]) 12/02/23 7:12 AM Brief Neurocritical Care Overnight Note Nursing notified provider of decline in neurologic exam with NIHSS increasing from 18 to 21. Agree with their assessment, notably the patient was not longer answering questions or follow commands consistently and much more sedate. STAT head CT obtained and notable for evolution of stroke with increasing mass effect and slight increase in leftward shift. STAT dose of mannitol given. Noted significant improvement in examination with patient more alert, answering questions, follow commands, and complaining of pain at the back of her neck. Noted by nursing concern for RUE tremoring with hypertension, the patient was examined and the RUE tremor was not stereotypic and changed with repositioning. Patient complained of pain in the back of her neck. Suspected the tremor was more reactive to the pain. However, did not an intermittent spasm-like pull of her head toward the left that would occur semi-rhythmically. This somewhat improved with repositioning. Patient's exam somewhat more sedate, but was able to arouse to be more responsive. Will monitor very closely and have low threshold for repeat CTH, EEG, and addition of AED. Barbara Patterson DO Neurocritical Care Fellow I have independently seen and examined the patient on 12/01/23. I agree with the history, examination, assessment and plan as documented by the DOOR LINER HELPER with my changes/additions added. Patient is a 78 yo F with a hx of HTN, CAD, HLD who presented with acute L sided weakness and facial droop. Outside the window for lytics. CTA revealed long segment occlusion of R ICA to R M2 s/p MT with TICI2B revascularization Interval History: MRI completed overnight, demonstrated the known stroke Scheduled Meds: [Held by provider] aspirin 81 mg Per NG tube Daily Atorvastatin 40 mg Per NG tube QHS Lisinopril 5 mg Per NG tube Daily Senna 8.6 mg Per NG tube QAM Labs: Chem 7: Lab Results Component Value Date SODIUM 144 12/01/2023 POTASSIUM 3.9 12/01/2023 CHLORIDE 109 (H) 12/01/2023 CO2 27 12/01/2023 GLUCOSE 119 (H) 12/01/2023 BUN 18 12/01/2023 CREATSERUM 0.65 12/01/2023 BUNCREARATIO 28 12/01/2023 OSMOLALITY 303 12/01/2023 GFR 90 12/01/2023 CBC: Lab Results Component Value Date WBC 14.34 (H) 12/01/2023 HGB 11.2 (L) 12/01/2023 HCT 35.1 12/01/2023 PLATELET 222 12/01/2023 MCV 95.1 12/01/2023 Physical Exam: Vital Signs: Blood pressure 155/72, pulse 99, temperature 98.7 F (37.1 C), temperature source Oral, resp. rate 20, height 1.575 m (5' 2"), weight 91.8 kg (202 lb 6.1 oz), SpO2 96 %. General: no acute distress HEENT: normocephalic, atraumatic Cardiovascular: +S1S2, RRR, no edema, + distal pulses, capillary refill < 3 seconds Pulmonary: Clear to auscultate bilaterally Abdominal: soft, nontender, nondistended, active bowel sounds Extremities: no wounds nor lesions Skin: no rash or obvious skin abnormalities Neurology: Lethargic, eyelid apraxia, able to tell her name, right gaze preference but able to cross midline, follows commands on the right, withdrawal to deep noxious on the LLE, extends on the LUE Assessment and Plan: Neurology: Acute R MCA/RUBY ischemic stroke due to long segment occlusion of R ICA to R M2 s/p MT with TICI2B revascularization Cytotoxic cerebral edema with mass effect R BG hemorrhagic transformation - Neurochecks with pupillometer - SBP goal <160, MAP >65, eunatremia - Most recent CTH demonstrated stable bleed, brain MRI demonstrated the MCA/RUBY stroke with some MLS - Consider resuming ASA on day 3-5 after the bleed - Statin for secondary stroke prevention Pulmonary: Close airway watch, at risk for airway loss and intubation Oxygen Therapy O2 Sat (%): 96 % O2 Device: nasal cannula Flow (L/min): 2 Cardiovascular: Essential HTN CAD, HLD - SBP goal< 160, MAP goal >65. PRN Hydralazine and Labetalol - TTE with EF of >70% - Normal sinus rhythm on EKG - Hold ASA as above - Statin Nephrology: - Maintain euvolemia GI/Nutrition: - TF - Bowel regimen to prevent constipation Endocrinology: - Goal blood glucose 140-180. SSI ID: Afebrile - PRN Tylenol for T>100.4F Heme/Onc: - Goal plt >100, INR <1.4, Hgb >7 - VTE prophylaxis: - SCDs - Chemical prophylaxis - LVX in am Acute deconditioning - PT/OT consulted and following - Mobility as tolerated Additional details and other supportive care as per the resident note from the same day This patient is critically ill, unstable and is at high risk of imminent or life threatening deterioration due to acute R MCA/RUBY ischemic stroke due to R ICA occlusion, cytotoxic cerebral edema, hemorrhagic transformation in the R BG requiring close neurologic and hemodynamic monitoring, close airway watch, at risk for airway loss and intubation. I personally spent 31 minutes in the intensive care unit providing critical care services to the patient today independent of procedures, teaching and other care providers. Management of the above was performed. My time managing this critically ill patient included review of interval history, laboratories, radiology and consultation reports; performing a physical examination; discussing the patient with the multi-disciplinary team and managing life sustaining therapies to prevent imminent clinical deterioration. Christian Powers MD Neurocritical Care Attending NEUROCRITICAL CARE PROGRESS NOTE HOSPITAL VISIT DEMOGRAPHICS Patient: Aroldo Vargas Code status: Full Code Admission date: 11/29/2023 2:45 PM Hospital days: LOS: 2 days CHIEF COMPLAINT RMCA stroke s/p mechanical thrombectomy HISTORY OF PRESENT ILLNESS Aroldo Vargas is a 78 y.o. female with a past history of HTN, HLD, CAD, dementia, TIA who presented to [facility] with acute onset L hemiplegia, L facial droop, and slurred speech concerning for a RMCA stroke. She was found by her family this morning with symptoms and her LKW was 2145 on 11/28. She was seen at an OSH with telestroke evaluation. Initial NIHSS was 8. CTA positive for HERVE occlusion and transferred to [facility] for mechanical thrombectomy. No IV thrombolytics as she was outside the window. On arrival to [facility], her NIH was 16. CTH was showing evolving RMCA territory stroke and CTP was positive for RMCA mismatch. MRS 2, limited by inability to manage her finances due to memory difficulties. She was take to the OR emergently for mechanical thrombectomy with TICI 2b revascularization of a long segment occlusion of HERVE to RM2. She admitted to the [facility]U for post-stroke management INTERVAL HISTORY SINCE ADMISSION 11/29/2023: Admit to NCCU 11/30/2023: acute decline in exam; contrast extravasation vs. Hemorrhage on CT; taken for dual energy CT 12/01: no acute events PHYSICAL EXAM GENERAL: Drowsy, no acute distress HEENT: normocephalic CARDIO: RRR, no edema PULM: clear to auscultation bilaterally, equal chest rise; no secretions ABDOMINAL: soft, nontender, nondistended, active bowel sounds EXTREMITIES: no wounds or lesions VASCULAR: 2+ distal pulses, capillary refill <3 seconds NEURO: arouses to voice, some eye opening, ?eye lid apraxia. R gaze preference. Unable to assess EOM, attends. Follows commands on R. Oriented to self and place only. RUE/RLE spontaneous, LUE/LLE withdraws. ASSESSMENT AND PLAN Neuro: (11/29/2023) 2 Days Post-Op s/p mechanical thrombectomy, TICI 2b for HERVE/MCA ischemic stroke (11/29/23) Acute R RUBY/MCA CVA with R BG hemorrhagic conversion Left hemiplegia Dysarthria - Initial CVA Management: - 11/29/23 Stroke alert performed; summary of imaging findings: NIHSS 16 with R MCA stroke - No IV thrombolytics with LKW 2145 on 11/28/23, outside window for ad [facility] 12-17-2023 Consult note Associated Order (s): IP CONSULT TO SURGERY - GENERAL (ELECTIVE) General Surgery Initial Consult Evaluation Note: Consult: 12/17/2023, 11:41 AM Air Dispatcher: Nori Gabriel MD Aroldo Vargas is a 78 y.o. female w/ PMH significant for HTN, HLD, CAD, dementia, TIA who presented to an [facility] after family found her with L hemiplegia, L facial droop and slurred speech. Transferred to [facility] for further management. Gen surg has been consulted for PEG placement for ongoing nutrition requirements and failed FEES. GI has already seen and evaluated pt for placement. Placement per Gen Surg team. Plan to schedule pt for OR on 12/18/23 pending OR availability. Consulted for: PEG placement CURRENT HOSPITALIZATION LOS: Admit Date: 11/29/2023 [facility] LOS: 18 days Admission History: Presented to an [facility] after family found her with L hemiplegia, L facial droop and slurred speech. Seen on tele, NIHSS 8. Interval History: 11/30: Brain MRI 12/05: Transfer out of NCCU. 12/13: GI unable to place PEG, consult gen surg. CT A/P pending. Exam and vitals stable. 12/14: CT A/P completed. Dysphagia improving, FEES Saturday 12/16: Increase in NIH overnight, back to baseline. . 12/17: FEES complete, NPO recommended, follow up with surgery about PEG timing, carotid duplex to eval carotid stenosis PROBLEM LIST: Principal Problem: Ischemic stroke Active Problems: Stroke Anemia (Low HGB) Electrolyte disorder (K, Cl, or Na) MEDICAL HISTORY: Past Medical History: Diagnosis Date CAD (coronary artery disease) Dementia Hyperlipidemia Hypertension TIA (transient ischemic attack) SURGICAL HISTORY: Past Surgical History: Procedure Laterality Date THROMBECTOMY NONCORONARY ARTERY MECHANICAL PERCUTANEOUS 1ST VESSEL N/A 11/29/2023 Laterality: N/A; Surgeon: Tom Clark MD; Location: [facility] MAIN OR PLACEMENT CATH SELECTIVE INTERNAL CAROTID ARTERY W/ ANGIO IPSILAT INTRACRANIAL CAROTID W/ RAD S&I N/A 11/29/2023 Laterality: N/A; Surgeon: Tom Clark MD; Location: [facility] MAIN OR ALLERGIES: Not on File PRIOR TO ARRIVAL MEDS: Medications Prior to Admission Medication Sig Dispense Refill Last Dose Metoprolol succinate 200 MG tablet XL Take 1 tablet by mouth daily. rivastigmine 3 MG capsule Take 1 capsule by mouth 2 times daily. Past Medical/Family/Social History is reviewed. REVIEW OF SYSTEMS: A complete review of systems was negative except for: Respiratory: positive for decreased bl breath sounds Musculoskeletal: positive for muscle weakness Neurological: positive for memory problems, weakness, and somnolence CURRENT MEDS: Scheduled Meds: aspirin 81 mg Per NG tube Daily Atorvastatin 40 mg Per NG tube QHS carveDILOL 12.5 mg Per NG tube Q12HNS enoxaparin 40 mg Subcutaneous Daily lidocaine 2 patch Transdermal Q24H Lisinopril 40 mg Per NG tube Daily Continuous Infusions: Jevity 1.5 Benny/Fiber 50 mL/hr (12/17/23 1016) PRN Meds:[DISCONTINUED] Acetaminophen OR Acetaminophen OR [DISCONTINUED] Acetaminophen OR Acetaminophen, ceFAZolin, ceFAZolin, hydrALAZINE OR hydrALAZINE, Labetalol OR Labetalol, lidocaine 1% buffered in sodium bicarbonate, Polyethylene glycol, [DISCONTINUED] Senna OR Senna OBJECTIVE FINDINGS: Vital Signs (24hrs): Temp: [97.4 F (36.3 C)-98.2 F (36.8 C)] 97.7 F (36.5 C) Pulse (Heart Rate): [65-79] 79 Resp Rate: [16-20] 17 BP: (102-116)/(51-57) 116/57 O2 Sat (%): [94 %-97 %] 97 % Hemodynamic/Invasive Device Data (24 hrs): Pulmonary/Cardiac Hemodynamics Pulse (Heart Rate): 79 Neuro ICP/CPP Monitoring MAP (mmHg): 81 mmHg Neuro ICP/CPP Monitoring 2 MAP (mmHg): 81 mmHg Lines/Drains/Airways/Wounds: Patient Lines/Drains/Airways Status Active Lines, Drains, Airways, & Wound Overview Name Placement date Placement time Site Days Peripheral IV Line - Single Lumen 12/13/23 0658 forearm, posterior, left 22 gauge;1 in length 12/13/23 0658 -- 4 External Catheter 12/04/23 0600 12/04/23 0600 -- 13 Naso/Oral Tube 12/06/23 0301 Nasoenteric feeding tube left nostril 12/06/23 0301 -- 11 Wound Sheath Site 11/29/23 1551 Right Femoral 11/29/23 1551 Femoral 17 Wound Skin Tear 12/06/23 1030 Left Radial 12/06/23 1030 Radial 11 Wound Skin Tear 12/08/23 1412 Lower;Posterior;Right Arm 12/08/23 1412 Arm 8 Fluid Management (24hrs): Intake/Output last 3 shifts: I/O last 3 completed shifts: In: 1456 [NG/GT:1456] Out: 1200 [Urine:1200] Intake/Output this shift: I/O this shift: In: 63.3 [NG/GT:63.3] Out: - PHYSICAL EXAM: General: Somnolent, morbid obesity, NAD Head: Normocephalic, without obvious abnormality, atraumatic, central adiposity Lungs: clear to auscultation bilaterally, decreased breath sounds bl Heart: regular rate and rhythm, S1, S2 normal, no murmur, click, rub or gallop, normal apical impulse, no S3 or S4, no click Abdomen: soft, non-tender. Bowel sounds normal. No masses, no organomegaly Extremities: extremities normal, atraumatic, no cyanosis, no redness or tenderness in the calves or thighs, no ulcers, gangrene or trophic changes, edema 1+ in bl LE Pulses: 1+ and symmetric, difficult to appreciate LE dorsal pulses Skin: No rashes or lesions Neurologic: Confused, decreased strength. Somnolent. Awoken from nap. Falling asleep during conversation DIAGNOSTIC RESULTS/PROCEDURES: Consults/Procedures: PEG placement Prior GI consult Imaging/Radiological Studies: EXAM: CT ABDOMEN/PELVIS WITH CONTRAST, 12/13/2023 12:46 PM FINDINGS: Lung Bases: Trace bilateral pleural effusions. Bibasilar atelectasis. Multivessel coronary artery disease. Biliary/Gallbladder: The gallbladder is not well seen and may be absent. The biliary tree is nondilated. Retroperitoneal/Vasculature: No retroperitoneal adenopathy is identified. Scattered atherosclerotic calcifications in the aorta and its main branches. Gastrointestinal/Mesentery: There are multiple stool filled loops of transverse colon anterior to the stomach. There is a more open space between the inferior aspect of the liver and a few of the mid transverse colon loops. Enteric tube tip terminates in the proximal duodenum. Small hiatal hernia. PELVIS Other: Small fat-containing umbilical hernia. Bony Structures: Multilevel degenerative changes in the spine. There are IMPRESSION: 1. Few dilated loops of transverse colon between portions of the stomach and the abdominal wall. 2. No acute findings in the abdomen and pelvis. Labs-ABGs: Labs-CBC: WBC/Hgb/Hct/Plts: 11.65/10.9/34.6/372 (12/17 551) Labs-Chem 7([facility]): Bun/Creat/Cl/CO2/Glucose: 20/0.48/102/27/138 (12/17 551) Na/K+/Phos/Mg/Ca: 136/4.6/--/2.0/-- (12/17 551) Labs-Coags: ASSESSMENT/PLAN: Principal Problem: Ischemic stroke Active Problems: Stroke Anemia (Low HGB) Electrolyte disorder (K, Cl, or Na) No problem-specific Assessment & Plan notes found for this encounter. PLAN - Plan OR tomorrow for PEG (12/18/2023). Case will be an add-on case. Pending OR availability - Consent can be obtained via telephone with SANDRA Vargas (son) at - Please obtain full set of labs and document any acute overnight events prior to surgical intervention - Optimize pt for surgery Total time spent with patient greater than: 15 Minutes Spoke with pt family: Dina Carlisle (daughter) These recommendations are not finalized until signed and attested by attending surgeon physician. Nori Gabriel MD Anesthesiology PGY-1 Associated Order(s): IP CONSULT TO GASTROENTEROLOGY N [facility] Main IBD Consult [facility] --> IM Consult Serv [facility] --> [facility] Main IBD consult service Fellow GASTROENTEROLOGY INPATIENT CONSULT Referring Provider: Christian Powers MD Admit Date: 11/29/2023 Reason for Consultation: dysphagia 2/2 CVA, consult for PEG HISTORY OF PRESENT ILLNESS: Aroldo Vargas is a 78 y.o. female with PMH HTN, HLD who p/w stroke transferred for thrombectomy now with AMS with evolution of stroke c/b mass effect and fever. GI is consulted for dysphagia 2/2 CVA, consult for PEG. CTH with evolving R MCA territory stroke. CTP with R MCA mismatch. mRS 2 at baseline. 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 . Patient is not on AC apart from DVT prophylaxis. Patient to be re-evaluated by [employer]BACK[employer] ADMINISTRATOR later today. She is currently tolerating Tfs with DHT. Patient has been transferred out of the [facility]CC[facility]. Patient has had 1/2 cultures with staph hominis and 1/2 cultures with staph epi. Suspect these are contaminants. ID has evaluated patient and recommended continuing ctx. Currently, patient AF and HDS on 1LNC. Patient's last fever on 12/03. Most recent labs notable for hgb 9.7, plt 340, INR 1.0, BMP unremarkable. Patient tells us at bedside that she does not want PEG tube, however she is A&Ox1 (to person only). PAST MEDICAL HISTORY: PAST MEDICAL HISTORY Past Medical History: Diagnosis Date CAD (coronary artery disease) Dementia Hyperlipidemia Hypertension TIA (transient ischemic attack) PAST SURGICAL HISTORY Past Surgical History: Procedure Laterality Date THROMBECTOMY NONCORONARY ARTERY MECHANICAL PERCUTANEOUS 1ST VESSEL N/A 11/29/2023 Laterality: N/A; Surgeon: Tom Clark MD; Location: [facility] MAIN OR PLACEMENT CATH SELECTIVE INTERNAL CAROTID ARTERY W/ ANGIO IPSILAT INTRACRANIAL CAROTID W/ RAD S&I N/A 11/29/2023 Laterality: N/A; Surgeon: Tom Clark MD; Location: [facility] MAIN OR CURRENT MEDICATIONS aspirin 81 mg Per NG tube Daily Atorvastatin 40 mg Per NG tube QHS carveDILOL 12.5 mg Per NG tube Q12HNS enoxaparin 40 mg Subcutaneous Daily Lisinopril 40 mg Per NG tube Daily Polyethylene glycol 17 g Per NG tube Q12H Senna 17.2 mg Per NG tube Q12H ALLERGIES Not on File SOCIAL HISTORY She has no history on file for tobacco use, alcohol use, and drug use. FAMILY HISTORY History reviewed. No pertinent family history. REVIEW OF SYSTEMS: Checked box indicates a positive response. Constitutional: [] Weight loss [] Fevers Eyes: [] Problems with vision ENT: [] Nose or sinus problems [] Oral problems [] Throat problems or hoarseness Cardiovascular: [] Chest pain [] Leg pain with walking [] Palpitations [] Ankle swelling Respiratory: [] Shortness of breath [] Persistent Cough [] Wheezing Endocrine: [] Increased Thirst [] Increased Urination Gastrointestinal: [] Heartburn [x] Dysphagia [] Abdominal pain [] Loss of appetite [] Nausea or vomiting [] Diarrhea [] Constipation [] Melena [] Hematochezia [] Scleral icterus or jaundice Skin: [] Rashes Musculoskeletal: [] Trouble walking or standing [] Joint pain [] Muscle pain Allergy/Immune System: [] Allergies [] Frequent Infections Neurological: [] Memory difficulties [] Temporary blindness [] Difficulty speaking [] Headaches [] Numbness Psychiatric: [] Depression [] Suicidal ideation [] Auditory hallucinations Hematological/Lymphatic: [] Lymphadenopathy [] Frequent Nose Bleeds [] Easy Bruising Genitourinary: [] Penile/Vaginal Discharge [] Pain with urination [] Trouble starting urinary stream [] Hematuria PHYSICAL EXAM: Temp: [97.9 F (36.6 C)-98.5 F (36.9 C)] 98 F (36.7 C) Pulse (Heart Rate): [59-89] 89 Resp Rate: [18-37] 30 BP: (111-186)/(56-84) 111/56 O2 Sat (%): [94 %-100 %] 97 % Wt Readings from Last 3 Encounters: 11/30/23 91.8 kg (202 lb 6.1 oz) General: No acute distress. Comfortable. HEENT: PER, MMM, OP clear. No scleral icterus. DHT in place Neck: Neck supple without lymphandenopathy. Respiratory: no increased WOB Cardiovascular: RRR Abdominal: Soft. ND. NT. No guarding or rebound. No ascites present Neurological: Alert and oriented x1. Extremities: WWP 2+ throughout, no edema Skin: Does not appear jaundiced. No rash or lesion. LABS: CBC: Lab Results Component Value Date WBC 13.32 (H) 12/07/2023 HGB 9.7 (L) 12/07/2023 PLATELET 340 12/07/2023 MCV 96.8 12/07/2023 Chemistry: Lab Results Component Value Date SODIUM 136 12/07/2023 POTASSIUM 4.3 12/07/2023 CHLORIDE 103 12/07/2023 CO2 26 12/07/2023 BUN 31 (H) 12/07/2023 CREATSERUM 0.49 (L) 12/07/2023 GLUCOSE 132 (H) 12/07/2023 MAGNESIUM 2.0 12/07/2023 Hepatic Panel: Lab Results Component Value Date ALT 8 (L) 11/30/2023 AST 16 11/30/2023 ALKPHOS 80 11/30/2023 BILITOTAL 0.9 11/30/2023 BILIDIRECT 0.2 11/30/2023 INR 1.0 11/29/2023 IMAGING/STUDIES: All relevant imaging and procedures were reviewed. ASSESSMENT AND PLAN: Aroldo Vargas is a 78 y.o. female with PMH HTN, HLD who p/w stroke transferred for thrombectomy now with AMS with evolution of stroke c/b mass effect and fever. GI is consulted for dysphagia 2/2 CVA, consult for PEG. Patient with blood cultures with 1/2 cultures with staph hominis/epi, ID has seen patient and think likely contaminant but recommended continuing ctx. Patient's last fever 12/03. Patient tells us that she does not want a PEG tube, however she does not have capacity as she is A&Ox1. Per primary team, her family is amenable to PEG tube placement. Would recommend confirming this with patient's family and discussing again with patient to ensure all are amenable to PEG tube placement. We will tentative plan for PEG tube next week pending scheduling availability. IMPRESSION # dysphagia 2/ CVA ASSESSMENT/RECOMMENDATIONS: - we will tentatively plan for PEG tube placement on Sunday, 12/11, pending discussion with patient and family and are all on board with plan for PEG tube. Patient will also need to be afebrile for 48 hrs prior to PEG placement. Please follow pre-endoscopy recommendations as documented below. For PEG: - Ancef ordered (1 gm if patient is <80 kg; 2 gm if patient is >80 kg) as "interior surface insulation worker to the procedure"). - Please make NPO at midnight, including tube feeds. - Monitor for fevers, will need to be afebrile for >24hours - Check CBC and coags in the AM. Please ensure that hemoglobin is >7, platelets >50 and INR <1.6 - Please hold AM DVT prophylaxis (if applicable) - Anticoagulation infusions will need to be held for 6 hours prior to the procedure (if applicable) This consult was discussed with Dr. Benson, the attending physician. If you have any questions or need any further information, please feel free to contact our consult team. Thank you for this interesting consult and allowing us to participate in the care of Aroldo Claudio MD Division of Gastroenterology, Hepatology, and Nutrition Clinical Fellow PGY-5 Pager: [phone] For urgent/stat calls 5pm to 7am or all day on the weekend, please page the on-call GI fellow on [employer]. IM Consult Serv [facility] --> [facility] STAT/NEW GI consults For follow up questions regarding this patient, contact the IBD consults fellow or ABIGAIL on [employer]. IM Consult Serv [facility] --> [facility] Main IBD consult service Fellow Associated attestation - Timothy Benson MD - 12/07/2023 2:52 PM EST I saw and personally examined the patient with the resident/fellow. I discussed the findings and therapeutic plan with the resident/fellow. I agree with the history, physical examination, and medical decisions as outlined. I personally reviewed previous clinical lab testing, radiologic tests, diagnostic testing (including prior endoscopies and surgical procedures) listed in the resident/fellow's note or as described below with edits as necessary. In summary, this is a 78 y.o. female with PMH HTN, HLD who p/w stroke transferred for thrombectomy now with AMS with evolution of stroke c/b mass effect and fever. GI is consulted for dysphagia 2/2 CVA, consult for PEG. Patient with R MCA stroke which she was outside of window for thrombolytics so taken to OR for mechanical thrombectomy. Also noted to have hemorrhagic transformation in right basal ganglia. Has DHT in place and receiving feeds. Of note with fevers and had blood cultures drawn which showed staph hominis and staph epi which ID consulted and believe contaminants. Has been on ceftriaxone for this. Repeat cultures with NGTD. GI consulted for PEG placement. Speaking with patient though she states she doesn't want the PEG placed and wants to try to eat by mouth. Unclear of capacity though. See fellow's notes for full recs regarding PEG. Will need to discuss with patient and family their wishes though. Also need to make sure patient at least agreeable as it would make the process of placing PEG a lot easier and reduce risk that she removes PEG on her own. If you have any questions regarding our recommendations or treatment/management plan, please contact us Complexity. Obesity Body mass index is 37.02 kg/m . - Follow with PCP for dietary and lifestyle modifications. Any conditions listed below are present on admission unless otherwise specified. . Timothy Benson MD Motor Vehicle Examiner Division of Gastroenterology, Hepatology, & Nutrition [facility] Pager: [phone] Associated Order(s): IP CONSULT TO INFECTIOUS DISEASE INFECTIOUS DISEASE CONSULT NOTE Referring MD: Christian Powers MD Reason for Consult: " Gram positive bacteremia on repeat cultures. Please assist with management. Treating PNA with ceftriaxone, p/w right MCA stroke Chief Complaint: level 1 stroke alert HPI: Aroldo Vargas is a 78 y.o. female with a PMH of HTN and HLD . Admitted 11/29/2023 for level 1 stroke alert. Pt found to have a L facial droop and L hemiplegia. Seen at OSH where she was noted to have R ICA occlusion. Transferred to [facility] for further management. Went for thrombectomy on 11/29. Had decline in mentation on 12/02. STAT head CT obtained and notable for evolution of stroke with increasing mass effect and slight increase in leftward shift. Febrile up to 101. Pt denies any recent fevers/chills. Cannot recall what brought her into the hospital to begin with. Denies any shortness of breath or chest pain. Antibiotics Received: Ceftriaxone Exposures and Risk Factors Implants/hardware: denies Review of Systems - GENERAL: Patient denies fever, chills CARDIO: Patient denies chest pain PULM: Patient denies shortness of breath GI: Patient denies nausea, vomiting Past Medical History Past Medical History: Diagnosis Date CAD (coronary artery disease) Dementia Hyperlipidemia Hypertension TIA (transient ischemic attack) Surgical History Past Surgical History: Procedure Laterality Date THROMBECTOMY NONCORONARY ARTERY MECHANICAL PERCUTANEOUS 1ST VESSEL N/A 11/29/2023 Laterality: N/A; Surgeon: Tom Clark MD; Location: [facility] MAIN OR PLACEMENT CATH SELECTIVE INTERNAL CAROTID ARTERY W/ ANGIO IPSILAT INTRACRANIAL CAROTID W/ RAD S&I N/A 11/29/2023 Laterality: N/A; Surgeon: Tom Clark MD; Location: [facility] MAIN OR Inpatient Medications: aspirin 81 mg Per NG tube Daily Atorvastatin 40 mg Per NG tube QHS carveDILOL 12.5 mg Per NG tube Q12HNS cefTRIAXone 2 g Intravenous Q24H enoxaparin 40 mg Subcutaneous Daily Lisinopril 40 mg Per NG tube Daily Polyethylene glycol 17 g Per NG tube Q12H Senna 17.2 mg Per NG tube Q12H Not on File OBJECTIVE FINDINGS: Vital Signs (24hrs): Temp: [97.3 F (36.3 C)-98.4 F (36.9 C)] 97.5 F (36.4 C) Pulse (Heart Rate): [59-81] 63 Resp Rate: [18-42] 18 BP: (115-194)/(55-83) 126/58 O2 Sat (%): [93 %-98 %] 98 % Physical Exam: GEN: Awake, resting comfortably EYES: No scleral icterus HENT: MMM. CARDIO: RRR, no murmur. PULM/CHEST: CTAB. No increased work of breathing ABD: Soft, not tender or distended MSK: no obvious effusion, swelling, increased warmth, or erythema of major joints. SKIN: No rashes. NEURO: Alert and appropriately responding to questions. Diagnostic Data: CBC Lab Results Component Value Date WBC 15.21 (H) 12/06/2023 HGB 10.0 (L) 12/06/2023 HCT 32.7 (L) 12/06/2023 PLATELET 286 12/06/2023 MCV 99.4 (H) 12/06/2023 EDIF Lab Results Component Value Date RBCDISTRIBU 13.2 12/06/2023 GRNLOCYT 86.5 11/29/2023 LYMPHOCYT 8.9 11/29/2023 MONOCYTELEC 4.0 11/29/2023 EOSINOPHILS 0.0 11/29/2023 BASOPHILS 0.1 11/29/2023 LYMPHOCYTABS 1.22 11/29/2023 EOSINOPHLABS <0.04 11/29/2023 PLATELET 286 12/06/2023 MPV 10.8 12/06/2023 Lab Results Component Value Date SODIUM 140 12/06/2023 POTASSIUM 4.8 12/06/2023 CHLORIDE 105 12/06/2023 CO2 28 12/06/2023 BUN 34 (H) 12/06/2023 CREATSERUM 0.48 (L) 12/06/2023 GLUCOSE 95 12/06/2023 Lab Results Component Value Date ALT 8 (L) 11/30/2023 AST 16 11/30/2023 ALKPHOS 80 11/30/2023 BILITOTAL 0.9 11/30/2023 BILIDIRECT 0.2 11/30/2023 No results found for: "SEDRATE" No results found for: "CRP" Urinalysis Lab Results Component Value Date SPGRVTYUR 1.038 (H) 12/02/2023 GLUCOSEURINE Negative 12/02/2023 KETONESURINE Negative 12/02/2023 BLOODURINE Negative 12/02/2023 NITRITESURIN Negative 12/02/2023 LEUKOCESTUR Negative 12/02/2023 WBCURINE 6 - 10 (A) 12/02/2023 RBCURINE 0-2 12/02/2023 BACTERIAURIN ABSENT 12/02/2023 Microbiology and Other Significant ID Labs: (personally reviewed) 12/02: Bcx 1/2 staph hominis 12/04: Bcx 1/2 staph epidermidis Imaging: XR ABDOMEN 1 VIEW Final Result IMPRESSION: Interval retraction of the Dobbhoff tube with the tip in the distal stomach pointed superiorly into the left. If postpyloric positioning is needed, repositioning prior to advancement is recommended. ABDOMEN 1 VIEW PORTABLE Final Result IMPRESSION: Dobbhoff tube remains coiled in the stomach with the tip in proximal stomach body. Discussed with Joycelyn Lala RN at 2:48am on Dec 06, 2023. I personally viewed and interpreted these images and I have reviewed and approved this report. ABDOMEN 1 VIEW Final Result IMPRESSION: Dobbhoff tube is looped in the distal stomach with tip in the proximal stomach. Repositioning/advancement recommended. ABDOMEN 1 VIEW Final Result IMPRESSION: Dobbhoff tube tip in the distal stomach. CHEST 1 VIEW PORTABLE Final Result IMPRESSION: No radiographic evidence of acute cardiopulmonary abnormality. ANGIO BRAIN/NECK Final Result IMPRESSION: 1. 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 2. Interval occlusion at the M1-M2 junction beginning at the origin of the dominant inferior branch of the right middle cerebral artery which is associated with poor distal collateralization. HEAD WITHOUT CONTRAST Final Result IMPRESSION: Evolving infarcts in the right RUBY and MCA distribution with hemorrhagic transformation in the right basal ganglia with unchanged focal hematoma. Mildly mass effect with leftward shift of 4 mm. CHEST 1 VIEW PORTABLE Final Result IMPRESSION: New bibasilar atelectasis status post placement of partially visualized feeding tube. HEAD WITHOUT CONTRAST Final Result IMPRESSION: Evolving infarcts in the right RUBY and MCA distribution with petechial hemorrhagic transformation in the right basal ganglia with unchanged focal hematoma. Mildly progressed mass effect with leftward shift of 4 mm. ABDOMEN 1 VIEW Final Result IMPRESSION: Dobbhoff tube with tip projecting over the pyloroduodenal region. Consider advancement to confirm postpyloric position. BRAIN WITHOUT CONTRAST Final Result IMPRESSION: Acute infarcts in the right RUBY and MCA territories with hemorrhagic transformation in the right basal ganglia and small volume intraventricular hemorrhage. Mass effect with mild leftward shift of 2 mm. HEAD WITHOUT CONTRAST Final Result IMPRESSION: No interval change in acute infarcts in the right RUBY and MCA distribution with a 1.4 cm hematoma in the right basal ganglia as confirmed on dual-energy CT. Similar mass effect and leftward shift of 3 mm. HEAD WITHOUT CONTRAST Final Result IMPRESSION: Evolving infarct involving a large portion of the right MCA vascular territory as described above, increased in extent in comparison to prior head CT. Hyperdensities involving the right basal ganglia likely represent a combination of hemorrhage and contrast staining. A more focal and hyperdense component involving the right globus pallidus is favored to represent hematoma. Further characterization and distinction of hemorrhage/contrast could be obtained with a dual energy CT if clinically indicated. The suspected hemorrhagic component is new in comparison to previous head CT from November 29, 2023. There is associated mass effect with effacement of the right lateral ventricle but minimal leftward midline shift at this point in time. Findings communicated to Dr. Powers on 11/30/2023 at 10:55 AM. 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 There is distal reconstitution of several right middle cerebral artery branches, likely related to collateral flow. Occlusion of the right M1 segment with distal reconstitution, as above. Short segment of occlusion of the proximal right A1 segment. Remainder of the anterior cerebral arteries are patent, without significant stenosis. CARDIOGRAM Final Result XR ABDOMEN 1 VIEW PORTABLE Final Result FINDINGS/IMPRESSION: Tubes: Feeding tube tip is just entering the duodenum. The lower pelvis was excluded. Normal bowel gas pattern. No definite pneumoperitoneum. ABDOMEN 1 VIEW PORTABLE Final Result IMPRESSION: Feeding tube with tip in the proximal stomach. If postpyloric position is desired further advancement is recommended. SPINE CERVICAL WITHOUT CONTRAST Final Result IMPRESSION: 1. No acute fracture or traumatic malalignment. 2. Degenerative changes as above. I personally viewed and interpreted these images and I have reviewed and approved this report. CEREBRAL PERFUSION ANALYSIS Final Result IMPRESSION: Large perfusion defect involving the right MCA and reticular striate territories. Completed infarct core in the basal ganglia with large volume of ischemic penumbra. STROKE HEAD-STROKE ALERT ONLY Final Result IMPRESSION: Acute nonhemorrhagic infarct in the right basal ganglia lenticulostriate distribution. No significant intracranial mass effect. Findings were discussed with Ryley Licea at 3:06 PM on November 29, 2023. I personally viewed and interpreted these images and I have reviewed and approved this report. RO IMAGING FOR NEURO ENDOVASCULAR (Results Pending) ASSESSMENT: 78 y.o. female with a PMH of HTN and HLD . Admitted 11/29/2023 for level 1 stroke alert. Coag neg staph bacteremia - noted to have 1/2 cultures with staph hominis and 1/2 cultures with staph epi. Suspect these are contaminants. Can get repeat bcx since pt has not been started on directed therapy CVA Acute hypoxic respiratory insufficiency - unclear baseline but concern for aspiration PNA per primary team Estimated Creatinine Clearance: 102 mL/min (A) (by C-G formula based on SCr of 0.48 mg/dL (L)). RECOMMENDATIONS: Diagnostics: Repeat bcx Therapeutics: Can continue Ceftriaxone 2 g q24h ID team 2 will continue to follow. If there are further questions please page the team 2 pager. Do not page the interior surface insulation worker fellow unless after hours. This case was staffed with Dr. Tobias. Please see attending attestation for final recommendations. Rosario Lee MD Infectious Diseases Fellow Associated attestation - Mc Tobias MD, MPH - 12/07/2023 10:30 AM EST I agree with the fellow, Dr. Rosario Lee's, note above, including the history, physical exam, and medical decisions. I have independently interviewed and examined the patient with Dr. Lee. I discussed the findings and therapeutic plan with the fellow, and we collaborated on medical decision making for this patient. 78 y/o F w h/o HTN, HLD who p/w stroke transferred for thrombectomy now with AMS with evolution of stroke c/b mass effect and fever. Suspect CoNS likely contaminants. Continue ceftriaxone for now. Repeat BCx. Mc Tobias MD, MPH battery assembler plastic Division of Infectious Diseases Pager # [phone] Associated Order(s): IP CONSULT TO SURGERY - NEURO Neurosurgery Consult Note Reason for Consultation: "R ICA occlusion" HPI Ms. Aroldo Vargas is a 78 y.o. female who presented with L hemiplegia, L facial droop, slurred speech w/ long segment occlusion of R ICA to R M2. NIH16. MRS 2. She was out of the window for IV thrombolytics. She takes Aspirin 81mg. ROS: All other systems are negative except as mentioned in HPI No past medical history on file. No past surgical history on file. No family history on file. Allergies Not on File Infusions Scheduled Meds PRN Meds: hydrALAZINE, HYDROmorphone, Labetalol OR Labetalol, [MAR Hold] Labetalol, Labetalol, ondansetron, Prochlorperazine Home Meds Prior to Admission medications Not on File Vitals Temp: [97.3 F (36.3 C)-98 F (36.7 C)] 97.3 F (36.3 C) Pulse (Heart Rate): [64-94] 72 Resp Rate: [16-31] 23 BP: (109-231)/(53-102) 139/63 O2 Sat (%): [94 %-100 %] 96 % Physical General: NAD Cards: no obvious JVD Resp: no stridor or retractions Abd: soft NTND Ext: no edema Mental Status: Awake, alert, oriented x2. Cooperative, follows commands. Cranial Nerves: PERRL, R gaze deviation; L facial droop Motor Function: SA EF EE WF WE FG DI HF KF KE PF DF Right 5 5 5 5 5 5 5 5 5 5 5 5 Left 2 2 2 2 2 2 2 5 5 5 5 5 Sensory Function: Sensation is intact to light touch and painful stimulation throughout. Labs WBC/Hgb/Hct/Plts: 13.74/14.7/45.8/242 (11/29 1501) Na/K+/Phos/Mg/Ca: 140/3.9/--/--/-- (11/29 1501) Bun/Creat/Cl/CO2/Glucose: 14/0.71/106/25/117 (11/29 150) Recent Labs 11/29/23 1502 PT 12.7 INR 1.0 Imaging: CT SPINE CERVICAL WITHOUT CONTRAST Final Result IMPRESSION: 1. No acute fracture or traumatic malalignment. 2. Degenerative changes as above. I personally viewed and interpreted these images and I have reviewed and approved this report. CEREBRAL PERFUSION ANALYSIS Final Result IMPRESSION: Large perfusion defect involving the right MCA and reticular striate territories. Completed infarct core in the basal ganglia with large volume of ischemic penumbra. STROKE HEAD-STROKE ALERT ONLY Final Result IMPRESSION: Acute nonhemorrhagic infarct in the right basal ganglia lenticulostriate distribution. No significant intracranial mass effect. Findings were discussed with Ryley Licea at 3:06 PM on November 29, 2023. I personally viewed and interpreted these images and I have reviewed and approved this report. RO IMAGING FOR NEURO ENDOVASCULAR (Results Pending) A/P: Aroldo Vargas is a 78 y.o. female who presented with L hemiplegia, L facial droop, slurred speech w/ long segment occlusion of R ICA to R M2. NIH16. MRS 2. - OR for thrombectomy Staff: Dr. Ruvalcaba and Dr. Clark Covering: NS2 ([id number]) ## neurosurgery coverage changes at 0530/1730; if 0530 or 1730 has passed since original consult note placed, please page covering pager above ## Complexity. Any conditions listed below are present on admission unless otherwise specified. . Associated attestation - Tom Clark MD - 12/12/2023 10:55 AM EST I, Tom Clark MD., saw and evaluated the patient. Case was discussed with the Housestaff. I personally performed the garrett portions of the history and the physical examination and I agree with the findings, assessment and plan. I edited the documentation as necessary. Aroldo Vargas is a 78 y.o. female who presented with L hemiplegia, L facial droop, slurred speech w/ long segment occlusion of R ICA to R M2. NIH16. MRS 2. - OR for thrombectomy documented in this encounter [facility] 12-17-2023 Procedure note Associated Ord er(s): FLEXIBLE ENDOSCOPIC EVALUATION OF SWALLOWING Acute Care Speech-Language Pathology Flexible Endoscopic Evaluation of Swallowing (FEES) Diet Recommendations: Recommended Method of Nutrition: NPO Recommended Medication Administration (as appropriate per MD): Non-Oral *Consider sips of water and ice chips following oral care, given 1:1 family assistant editor assist to assist in secretions clearance and reduce risk of disuse atrophy. *To prevent potential development of aspiration pneumonia/nosocomial infections, RECOMMEND: Oral care routine q4h and HOB upright as tolerated Discharge Recommendations: Based on the below outcome measures/assessment score(s), FOIS, and NETBACKUP ADMINISTRATOR clinical judgment, discharge destination recommendation is: SNF. Patient is a excellent candidate for discharge to SNF due to the following barriers: Need for 1:1 assist to ensure safety with all PO intake and 1:1 assist needed for IADL's including medication management and finances. Additional supporting factors include: Impaired swallow function limiting nutritional status and safety with oral intake and Impaired cognitive skills limiting safety/insight. Acute NETBACKUP ADMINISTRATOR Outcomes Tracking Communicate basic wants and needs?: yes Demo insight/appreciation of deficits?: no Complete basic problem solving?: no Current therapy frequency recommendation in acute care: Speech/Lang/Cog Therapy Frequency: 3 times a week Swallow Therapy Frequency: 3 times a week Date of Procedure: 12/17/2023 Attending Physician: Charli Kang MD General Patient Information Name: Aroldo Vargas Gender: female Date of : 1945 Primary Diagnosis: ICD-10-CM 1. Acute right MCA stroke I63.511 2. 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 Past Medical History: Diagnosis Date CAD (coronary artery disease) Dementia Hyperlipidemia Hypertension TIA (transient ischemic attack) Past Surgical History: Procedure Laterality Date THROMBECTOMY NONCORONARY ARTERY MECHANICAL PERCUTANEOUS 1ST VESSEL N/A 11/29/2023 Laterality: N/A; Surgeon: Tom Clark MD; Location: [facility] MAIN OR PLACEMENT CATH SELECTIVE INTERNAL CAROTID ARTERY W/ ANGIO IPSILAT INTRACRANIAL CAROTID W/ RAD S&I N/A 11/29/2023 Laterality: N/A; Surgeon: Tom Clark MD; Location: [facility] MAIN OR Current method of nutrition: Dobhoff Tube Dentition / Oral Hygiene: Natural: Few missing Reason for Study: Direct visualization of pt's pharyngeal swallow given concerns for pharyngeal dysphagia 2/2 CVA with improved acceptance and participation on 12/14 compared to earlier in admission. Patient History Comments: Aroldo Vargas is a 78 y.o. female with PMH significant for HTN, HLD, CAD, dementia, TIA who presented to an [facility] after family found her with L hemiplegia, L facial droop and slurred speech. Seen on tele, NIHSS 8. CTA showed R ICA occlusion. She was out of the window for IV thrombolytics. Transferred to [facility] for further management. LKW 2145 on 11/28. On arrival to [facility], NIHSS 16. CTH with evolving R MCA territory stroke. CTP with R MCA mismatch. mRS 2 at baseline. 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 INTERVAL HISTORY 11/30: Brain MRI pending. 12/05: Transfer out of [facility]. 12/06: Dobbhoff dislodged overnight, replaced, restrained. Consult ID for positive blood cultures, repeat cultures. Daughter updated at bedside. UE venous duplex. 12/07: atbx complete, NETBACKUP ADMINISTRATOR to re-eval, GI consulted for PEG planning 12/08: No overnight events. PEG likely early next week. 12/09: NAEON. 12/10: exam stable, discussed with GI, PEG tentative for tomorrow 12/11: PEG planned today. 12/12: PEG planned for today, vital signs stable. 12/13: GI unable to place PEG, consult gen surg. CT A/P pending. Exam and vitals stable. 12/14: CT A/P completed. Dysphagia improving, FEES Friday 12/15: No overnight events. Planning for FEES Saturday 12/16: Increase in NIH overnight, back to baseline. NIHSS q12, de-escalate labs. Bowel regimen PRN. 12/17: FEES complete, NPO recommended, follow up with surgery about PEG timing, carotid duplex to eval carotid stenosis Prior Study: na Subjective information: Alert, engaged though rapidly fatigued throughout procedure. After, she reported eating/drinking to be "exhausting" and does not feel she can maintain oral nutrition/hydration until she "gest stronger." Encourage ongoing use of swallow to support eventual recovery and she is agreeable to "try" water for comfort at this time. Pain: General Pain Documentation (Adult, OB, Peds) Presence of Pain: denies pain/discomfort Presence of Pain Score (Auto-calculated): 0 Comfort/Acceptable General Pain Level/Goal: 4 DVPRS (Defense and Veterans Pain Rating Scale) DVPRS: Rest: 5- moderate pain DVPRS: Activity: 5- moderate pain Respiratory Status: O2 Sat (%): 97 % (12/17 1016) O2 Device: room air (12/17 1016) CRANIAL NERVE EXAMINATION: Cranial Nerve Exam CN V (Trigeminal) unequal or lack of sensation on bilateral forehead, cheeks, or jaw CN VII (Facial) unilateral or bilateral weakness of upper or lower face or both CN IX (glossopharyngeal) hoarseness CN X (Vagus) hoarseness CN XI (Accessory) weak or unequal resistance to rotation of head, weak or unequal shoulder shrug CN XII (Hypoglossal) slurred speech Voice Quality: hoarse Exam limited by cognition (yes/no): inconsistent command following, severely impaired memory a barrier to compensatory strategies/postures FEES Procedure Details Procedure Performed & Read by: Gabriela Morales NETBACKUP ADMINISTRATOR Scope Serial #: [id number] Feeder Name: Ana Luisa Topical Anesthetic: none Patient was positioned : Upright (head tilts and turns right, cannot maintain midline). The flexible endoscope was passed through the nasal passage to the level of oropharynx. Food and liquids were tinted with food coloring for easier observation. The scope was passed through the left nares without difficulty. Anatomic/Physiologic Assessment: Velopharyngeal port: Complete closure Base of tongue/lingual tonsils: (edematous) Vocal Fold Edge Right: Normal Vocal Fold Edge Left: Normal Abductory/Adductory Movement: Normal Ventricular Folds: Compression Pharyngeal contraction for pitch glide: (Reduced on right) Hypopharynx: (edematous) Epiglottis: Normal Secretion appearance: Clear Secretion location: Additional comments: Consistencies Tested: Consistencies Tested Ice chip: 1/2 tsp (2) Thin Liquid : 1 tsp, Straw (2 Tsps, Straw x5) Liquid- mildly thick (IDDSI 2)/nectar: Straw (3) Liquid- moderately thick (IDDSI 3)/honey: Straw (3) Dysphagia- pureed (IDDSI 4): 1 tsp (3) Regular Solid : Cracker/Cookie (1) Swallow Observations Premature spill: Pyriform sinus, Laryngeal vestibule Swallow initiation: Pyriform sinus Tongue base retraction: Impaired Nasopharyngeal entry: None Epiglottic Retroversion: (Intermittently limited by DHT) Pharyngeal Residue: residue collection on pharyngeal structures Location of Pharyngeal Residue: valleculae, pharyngeal wall Backflow from esophagus: None Airway Events: Penetration / Aspiration Scale (PAS) Ice: 1 - Material does not enter the airway Thin: 4 - Material enters the airway, contacts the vocal folds, and is ejected from the airway Liquid- mildly thick (IDDSI 2)/nectar: 4 - Material enters the airway, contacts the vocal folds, and is ejected from the airway Liquid- moderately thick (IDDSI 3)/honey: 8 - Material enters the airway, passes below the vocal folds, and no effort is made to eject Dysphagia- pureed (IDDSI 4): 3 - Material enters the airway, remains above the vocal folds, and is not ejected from the airway Regular Solid: 1 - Material does not enter the airway Strategy Trialed: Effectiveness: Texture modification Ineffective to eliminate aspiration Still Pictures/Video: See "Flexible Endoscopic Evaluation Of Swallowing" under Procedures tab in IHIS for all photos and videos recorded. Impressions: Pt presented with moderate oropharyngeal dysphagia s/p acute R MCA CVA and prolonged NPO status d/t lethargy. Functional acceptance this date. Despite limited visualization on FEES, incomplete bolus formation with left pocketing. Impaired bolus control with posterior spillage into the pharynx and larynx prior to height of the swallow. Initially, she appeared to achieve vocal cord closure to protect her airway. However, as trials progressed, fatigue was a barrier and pt with silent aspiration of liquids. Cued coughs were ineffective to clear as she did not initiate. Patient Instruction/Education this session: Results and recommendations from FEES, penetration without aspiration at beginning of procedure though trace silent aspiration with fatigue. Reviewed options to support nutrition/hydration and goals to increase her swallow frequency to support her swallow function. At this time, she is agreeable to PEG plan (had been delayed last week) with her goal for water for comfort and increasing po throughout upcoming weeks, as her endurance improves Plan for next session: bolus challenge trials, increase swallow frequency RECOMMENDATIONS: Swallow Recommendations Recommended Method of Nutrition: NPO Recommended Medication Administration (as appropriate per MD): Non-Oral Type of Cues/Supervision: 1:1 supervision Assistance: nurse/aide, family Acute NETBACKUP ADMINISTRATOR Goals Plan of Care by Gabriela Morales NETBACKUP ADMINISTRATOR at 12/17/2023 12:01 PM Version 1 of 1 Problem: NETBACKUP ADMINISTRATOR - Dysphagia Goal: Bolus Challenge Goal 1 Description: Patient will swallow therapeutic p.o.trials/bolus challenge swallows (with NETBACKUP ADMINISTRATOR only) of puree solids x10-20 trials, given mod cues, without clinical signs/symptoms of airway penetration/aspiration and without endorsing >5/10 fatigue over the course of 1/2 sessions to progress towards potential readiness for a repeat instrumental swallow evaluation. Outcome: Ongoing Goal: Bolus Challenge Goal 2 Description: Patient will swallow therapeutic p.o.trials/bolus challenge swallows (with NETBACKUP ADMINISTRATOR only) of water via straw/sup x10-20 trials, given mod cues, for use of strategies to improve bolus control/timing of the initiation of oral transit/pharyngeal swallow without clinical signs/symptoms of airway penetration/aspiration and without endorsing >5/10 fatigue over the course of 1-2 sessions to determine possible readiness for a repeat instrumental swallow evaluation. Outcome: Ongoing Time In: 814 Time Out: 0900 Total Visit Time: 45 minutes Total Treatment Time (skilled, billable minutes): 45 minutes NETBACKUP ADMINISTRATOR Evaluation and Treatment Time FEES/Endoscopic Swallowing Eval [id number]: 45 Speech Language Pathologist: AMADO Solis Time In: 814 Time Out: 0900 Total Visit Time: 45 minutes Total Treatment Time (skilled, billable minutes): 45 minutes Non-billable assistance during session: mirtha Assisted by during session: Ana Luisa PPE used during patient interaction: facemask, gloves Patient location/status at end of session: bed with head of bed elevated Patient alarms at end of session: none altered Upon discontinuation of Acute Care Speech Therapy Services or patient discharge from the hospital this note represents the current Speech Therapy Discharge Summary documented in this encounter [facility] 12-12-2023 Nurse Note The PEG was not able to be placed, no window could be identified. The DHT was pulled out and then attempts were apparently made to reposition it, it is presently at 50-55cm and bridled. The team of RN's caring for the pt are aware of the above. Pt will be transported to the floor per one of our ENDO INTEGRITY ASSESSOR's. JAMIR ZHENG Report called and patient transported to PACU documented in this encounter [facility] 12-12-2023 Hospital Discharge instructions Haris Chakraborty, ELECTRICAL CONTINUITY TESTER-COLLAR SETTER - 12/12/2023 10:36 AM EST Please take these discharge instructions to your primary care doctor follow appointment to show them,keep them for your reference and refer to them often for follow up appointments.It is best to write your appointments on a personal calendar so you do not miss them,call if you need to change any appointments please. Education: What are the most common symptoms of stroke? The following are the most common symptoms of stroke. However, each individual may experience symptoms differently. If any of these symptoms are present, call 911 (or your local ambulance service) immediately. Treatment is most effective when started immediately. Symptoms may be sudden and include: -Weakness or numbness of the face, arm, or leg, especially on one side of the body -Confusion or difficulty speaking or understanding -Problems with vision such as dimness or loss of vision in one or both eyes -Dizziness or problems with balance or coordination -Problems with movement or walking -Severe headaches with no other known cause, especially if sudden onset All of the above warning signs may not occur with each stroke. Do not ignore any of the warning signs, even if they go away - take action immediately. The symptoms of stroke may resemble other medical conditions or problems. Always consult your physician for a diagnosis We have provided both written and verbal education to the patient and family regarding ischemic and hemorrhagic strokes. We have discussed the warning signs/symptoms as well as causes of stroke. We have discussed the importance of activating 911/EMS in the event of these symptoms. We have reviewed the patient's personal risk factors as well as education on reducing these risk factors. [facility] Personalized Stroke Treatment Plan My Stroke Type: [x] Ischemic Stroke (Blockage of blood flow to the brain) [] Hemorrhagic Stroke (Bleeding in the brain) [] TIA- Transient Ischemic Attack (mini-stroke) My Risk Factors Include: [x] High Blood Pressure [] Diabetes [x] High Cholesterol [] Heart Disease [] Atrial Fibrillation (Irregular Heart Rate) [] Smoking [] Obesity [] Clotting Disorder [] Alcohol Abuse [] Drug Abuse [] Prior History [] Family History [] Obstructive Sleep Apnea My Follow-Up Treatment Goals: [x] Blood Pressure < 140/90 [] Stop Smoking Immediately [x] LDL < 70 [] HgA1C levels <7% [x] Decrease BMI to <25 [x] Take all ordered medications [x] Avoid non-prescription or over the counter medication not cleared by your physician [x] Limit Alcohol use to no more than 1 drink per day for females and 2 drinks per day for males [] Do not drive until cleared [x] Follow up with PCP within a week of discharge to home [x] Follow-up with Neurovascular [x] Follow-up with Occupational,physical and speech therapy if ordered [x] Watch out for depression and seek treatment if needed CONTACTS FOR NEUROVASCULAR SERVICE: - You may call your neurovascular doctors office at [phone], if you have questions between 8:30 am and 4:30 pm. - For off hours or the weekend you may call the office or the hospital enamel machine operator at and ask for the stroke resident interior surface insulation worker to be paged. - If you have any questions or needs, please call Ann SHRESTHA, RN, stroke program host at [phone] Mon-Fri from 05-21. ? Any questions concerning your discharge instructions please call Case Management Office [phone] Patient Stroke Resources: OS Stroke Support The [facility] Stroke Support Group is for stroke survivors, friends, and family members. Meets on the Sunday of each month from 6:30pm-7:30pm at [facility] ([address]; [place] [address]). Contact Janie Nelson, at [phone] or [email or web address]. If you are outside of the [place] area, contact The [place] [employer] at www.strokeassociation.org or 3-040-0-stroke, or for supports groups in your area. You may also refer to the Stroke Education booklet you received as part of your stroke education while you were a patient for additional resources. Additional Contacts: Evening and Weekend Contacts If you have questions or concerns during evening, weekend, or holiday hours, please call: -[facility] enamel machine operator at [phone]. -[facility] enamel machine operator at [phone] Ask the enamel machine operator to page the on-call doctor for Neurovascular service, they were responsible for your care while you were in the hospital. If you having an emergency, call 911. *In the event of an Emergency: If you have a physical or psychiatric emergency call 911 or go to your local emergency department. You should also call your outpatient provider's emergency number. Other reference numbers: [facility] Intake Office at [phone]; [facility] at 574-460-5376; or Suicide Prevention Hotline at 830-426-6753. *Helpful phone numbers: Free Crisis Hotline: 0-777-628-TALK ( ) Suicide Hotline: 462.804.7830 Seniors Suicide Hotline: 460.367.5845 [facility] Youth: 235.422.2148 Mental Health of [place]: 977.247.1724 (free counseling) [facility] Access Hotline: 184-456-GFVD (138-409-8369) 24-hour crisis text hotline: Text the word "4hope" to 033-170 for crisis support. Texting this number is free if you have Verizon, T-Mobile, AT[employer]T or Sprint. [facility] Financial Assistance: If you want to learn more about these programs, please call .There are three programs to help you with the cost of your medical care: Medicaid, Hospital Care Assurance Program (HCAP) & isiah If you are without Insurance and believe you may qualify for Medicaid/public assistance: The [facility] Department of Job and Family Services can now process velez (TANF), food (SNAP) and Medicaid Applications over the phone. Please call [phone] ([phone]) and apply over the phone or apply online at www.benefits.[place].gov. Sunday-Sunday 8am-12pm noon. Medication Assistance Programs [employer] members can buy 100+ common prescriptions for FREE, $3 or $6. Annual membership is $36 for individuals and $72 for families (up to 6 people, including pets). Sign up online or enroll at your nearest pharmacy! -[employer], web site can provide a significant number of coupons for medications at a much lower hallman. HEW Hall - 12/12/2023 10:35 AM EST Know your medicines Make sure you know why you are taking each medicine. Make a master list of all your medicines. Write down the medicine names and doctors' names. Include doses and side effects too. And write down why you take each medicine. Include all prescription and knkd-kje-gudpdsw medicines, vitamins, and supplements. Keep this list up to date. Take a copy to each doctor visit. Know when you will run out of each medicine. Ask your pharmacist if there are ways the drugstore can remind you to refill your medicines so you do not run out. Write refill reminders on your calendar. Don't wait until you have a few pills left. Ask your pharmacist to plan your refills so that you can pick up attendant all your medicines at the same time. This can mean fewer trips to the drugstore. If we have prescribed you a new medication during your stay, please contact with your primary physician for refills HEW Hall - 12/12/2023 10:35 AM EST Activity -- Please follow these instructions: -Advance your activity as you can tolerate - You may walk all you want. You may go up and down the steps. Use the railing for support - It is normal for your energy level and sleep patterns to change after a stroke - Take rest periods during the day as needed - Complete recovery may take several weeks, months, up to a year. Patience is garrett. HEW [place] - 12/21/2023 11:44 AM EST NPO with tube feeds via PEG tube MATTHEW Armstrong - 12/12/2023 10:35 AM EST Notify Your Doctor if you have any of the following: NEUROLOGICAL CHANGES-- Change in alertness Increased sleepiness Nausea and vomiting New onset of numbness or weakness in arms or legs New problems with your bowels or bladder New or worse problems with balance or walking Seizures, new or worsening UNRELIEVED HEADACHE PAIN-- New or increased pain unrelieved with pain medications Pain associated with nausea and vomiting Pain associated with other symptoms QUESTIONS OR PROBLEMS-- Any questions or problems that you are unsure about Deep Vein Thrombosis Symptoms Call your doctor or nurse right away if you have any signs of blood clots such as -Tender, swollen or reddened areas anywhere in your leg. -Numbness or tingling in your lower leg or calf, or at the top of your leg or groin -Skin on you leg looks pale or blue or feels cold to touch -Chest pain or have trouble breathing -Fever or chills Ann Foster RN - 12/14/2023 10:31 AM EST Images from the original note were not included. Aroldo Vargas has been placed on a mobile cardiac telemetry device to monitor their heart rhythm for the next thirty days. Detailed and illustrated instructions may be found within the included box. Here are a few garrett points: The sticker needs changed every 7 days. The next date to change sticker is: Thursday December 28, 2023 When changing the sticker, change the recorder device (#1) to the fully charged recorder device (#2). The battery lasts approximately seven days, and a recorder should be always kept on the market consultant as a backup. The [place] in the middle of the recorder turns the device on and may be pressed if Aroldo Vargas is experiencing any cardiac symptoms. If the transmitting phone is within ten feet of the patient, it is transmitting in real time. The monitor is always recording as long as it has battery and is on the patient. At the end of thirty days (Saturday January 20, 2024), place everything back into the box (phone, market consultant, recorders) and drop it off at [employer] or call [phone] to arrange for pick-up. If you have any questions, please feel free to reach out to me directly at [phone] (M-F, 7:30am-3:30pm). For troubleshooting, supplies replenishment, or device-related concerns please call [employer] at [phone] (press 1, 1) available 11/06 - or - email: [email or web address]. Thank you, FADY Garza, RN [facility] Stroke [place] [phone] Office [email or web address] documented in this encounter [facility] 11-30-2023 History and physical note NEUROCRITICAL CARE HISTORY AND PHYSICAL HOSPITAL VISIT DEMOGRAPHICS Patient: Aroldo Vargas Code status: Full Code Admission date: 11/29/2023 2:45 PM Hospital days: LOS: 1 day CHIEF COMPLAINT RMCA stroke s/p mechanical thrombectomy HISTORY OF PRESENT ILLNESS Aroldo Vargas is a 78 y.o. female with a past history of HTN, HLD, CAD, dementia, TIA who presented to [facility] with acute onset L hemiplegia, L facial droop, and slurred speech concerning for a RMCA stroke. She was found by her family this morning with symptoms and her LKW was 2145 on 11/28. She was seen at an OSH with telestroke evaluation. Initial NIHSS was 8. CTA positive for HERVE occlusion and [facility]. No IV thrombolytics as she was outside the window. [facility], her NIH was 16. CTH was showing evolving RMCA territory stroke and CTP was positive for RMCA mismatch. MRS 2, limited by inability to manage her finances due to memory difficulties. She was take to the OR emergently for mechanical thrombectomy with TICI 2b revascularization of a long segment occlusion of HERVE to RM2. She admitted to the NCCU for post-stroke management INTERVAL HISTORY SINCE ADMISSION 11/29/2023: Admit to NCCU REVIEW OF SYSTEMS Review of systems not obtained due to mentation, no family at bedside. HISTORY Past Medical History: Diagnosis Date CAD (coronary artery disease) Dementia Hyperlipidemia Hypertension TIA (transient ischemic attack) No past surgical history on file. Social History Socioeconomic History Marital status: Spouse name: Not on file Number of children: Not on file Years of education: Not on file Highest education level: Not on file Occupational History Not on file Tobacco Use Smoking status: Not on file Smokeless tobacco: Not on file Substance and Sexual Activity Alcohol use: Not on file Drug use: Not on file Sexual activity: Not on file Other Topics Concern Not on file Social History Narrative Not on file Social Determinants of Health Financial Resource Strain: Not on file Food Insecurity: Not on file Transportation Needs: Not on file Physical Activity: Not on file Stress: Not on file Social Connections: Not on file Intimate Partner Violence: Not on file Housing Stability: Not on file ALLERGIES AND HOME MEDICATIONS Allergies: has no allergies on file. Home Medications: Medications Prior to Admission Medication Sig Dispense Refill Last Dose Metoprolol succinate 200 MG tablet XL Take 1 tablet by mouth daily. rivastigmine 3 MG capsule Take 1 capsule by mouth 2 times daily. Prior to Arrival Meds: Medications Prior to Admission Medication Sig Dispense Refill Last Dose Metoprolol succinate 200 MG tablet XL Take 1 tablet by mouth daily. rivastigmine 3 MG capsule Take 1 capsule by mouth 2 times daily. Hospital Medications: Infusions: Sodium chloride 0.9% 75 mL/hr at 11/30/23 1435 Vital AF 1.2 Benny 10 mL/hr (11/30/23 1225) Scheduled: [Held by provider] aspirin 81 mg Per NG tube Daily Atorvastatin 40 mg Per NG tube QHS Senna 8.6 mg Per NG tube QAM PRN: [DISCONTINUED] Acetaminophen OR Acetaminophen OR [DISCONTINUED] Acetaminophen OR Acetaminophen, Calcium Gluconate OR calcium gluconate, hydrALAZINE OR hydrALAZINE, Labetalol OR Labetalol, magnesium sulfate, [DISCONTINUED] Polyethylene glycol OR Polyethylene glycol, potassium chloride OR Potassium chloride OR Potassium Bicarb-Citric Acid OR potassium chloride, sodium phosphate OR sodium phosphate PHYSICAL EXAM GENERAL: Lethargic, no acute distress HEENT: normocephalic CARDIO: RRR, no m/r/g, no edema PULM: clear to auscultation bilaterally, equal chest rise; no secretions ABDOMINAL: soft, nontender, nondistended, active bowel sounds EXTREMITIES: no wounds or lesions VASCULAR: 2+ distal pulses, capillary refill <3 seconds NEURO: Mental status: lethargic; oriented to person, year Speech/language: fluent; comprehension intact; repetition intact, severely dysarthric Cranial nerves: CN II: right gaze preference, no blink to threat in the left field. PERRL. 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 No nystagmus. CN V: Facial sensation intact to light touch, diminished in the left CN VII: left lower facial paralysis CN VIII: Hearing is grossly intact. CN IX and X: Soft palate elevates symmetrically in the midline CN XI: R shoulder weakness with shrug CN XII: Tongue protrudes midline; no fasciculations Motor: No spontaneous movement or withdrawal of the LUE/LLE with noxious stimuli, follow commands and moves antigravity in RUE/RLE Sensation: Extremity sensation intact in RUE/RLE, grimaces to noxious stimuli in the LUE/LLE Coordination: No ataxia, dysmetria FTS on the right, unable to perform on the left ASSESSMENT AND PLAN Neuro: (11/29/2023) 1 Day Post-Op s/p mechanical thrombectomy, TICI 2b for HERVE/MCA ischemic stroke (11/29/23) Acute HERVE/MCA CVA Left hemiplegia Dysarthria Dysphagia Dementia - Initial CVA Management: - 11/29/23 Stroke alert performed; summary of imaging findings: NIHSS 16 with R MCA stroke - No IV thrombolytics with LKW 2145 on 11/28/23, outside window for administration - 11/29/23 NSGY consulted for thrombectomy, performed and obtained TICI 2B revascularization - 11/30: CTA Over-read 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 There is distal reconstitution of several right middle cerebral artery branches, likely related to collateral flow. Occlusion of the right M1 segment with distal reconstitution, as above. Short segment of occlusion of the proximal right A1 segment. Remainder of the anterior cerebral arteries are patent, without significant stenosis. - 11/30: CT Head: evolving R MCA infarct - new hyper densities involving the right basal ganglia (rule out hemorrhage vs. Contrast extravasation). A more focal and hyperdense component involves the R GPI - 11/30 (interval scan): - Ongoing CVA management: - Monitor neurostatus with neurochecks Q1H and pupilometer Q1H - Prevent cerebral hypoperfusion with goal SBP <180 (see cards) - Imaging: - 11/29/[address] H: acute nonhemorrhagic infarct in the R basal ganglia - MRI B: pending - antiplatelet therapy: ASA 81 mg - Cytotoxic Cerebral Edema Management: - Goal Na 135 - 145; monitor Na Q24H Recent Labs 11/29/23 1502 11/30/23 0152 SODIUM 140 144 OSMOLALITY 294 303 CHLORIDE 106 106 - Stroke etiology presumed to be atherothrombotic based on the TOAST Criteria. Stroke risk factors include CAD, hypercholesterolemia, and hypertension. - Complete TTE (see cards) - Obtain LDL level and statin therapy if indicated (see cards) - Obtain HA1C level (see endo) - Initiate antiplatelet therapy within 48H of admission (see cards) - Initiate VTE prophylaxis immediately if no tPA given or 24H post-thrombectomy if performed (see heme) - Develop therapeutic anticoagulation plan, if indicated based on CVA etiology (see cards) - Consider urine drug screen on admission if no stroke risk factors - Consider hypercoagulability panel 24H-post tPA if no stroke risk factors - Pain/Sedation management - Tylenol 650mg Q4H PRN Psych: No Current Issues Pulm: No Current Issues O2 Sat (%): 94 % (11/30 1515) O2 Device: room air (11/30 08) - Goal SpO2 >92%; wean FiO2 as tolerated - - DOG4SLO, encourage pulmonary toileting - 11/29 CXR: no acute process (performed at OSH) Cards: Essential HTN HLD CAD Temp: [97.3 F (36.3 C)-98.7 F (37.1 C)] 98.2 F (36.8 C) Pulse (Heart Rate): [63-92] 79 Resp Rate: [18-40] 40 BP: (109-226)/(53-120) 119/77 O2 Sat (%): [93 %-100 %] 94 % Weight: [91.8 kg (202 lb 6.1 oz)] 91.8 kg (202 lb 6.1 oz) - Goal SBP <180, MAP >65 - Home antihypertensives: no known - PRN labetalol and hydralazine - 11/30 TTE: No prior study for comparison. Left Ventricle: Chamber size is normal. Increased wall thickness. Concentric remodeling is present. Normal global systolic function. Regional wall motion is normal. Ejection fraction is hyperdynamic (>70%). Diastolic function could not be determined. Right Ventricle: Chamber size is normal. Systolic function is normal. Left Atrium: Chamber size is normal. Aortic Valve: Trileaflet valve. Leaflet mobility is normal. Mild regurgitation. No stenosis. Mitral Valve: Normal appearing leaflets. Leaflet mobility is normal. Moderate posterior annular calcification. Mild regurgitation. No valve stenosis. Tricuspid Valve: Normal leaflets. Leaflet mobility is normal. Trace regurgitation. No stenosis. Poor tricuspid regurgitation jet may not accurately reflect right ventricular systolic pressure. - 11/30 troponin: 110 - 11/30 ECG: NSR - Statin Therapy: Indicated if LDL >70; began atorvastatin 40mg with LDL 130 Renal/: No Current Issues - Fluid Balance: - Goal: euvolemia Intake/Output Summary (Last 24 hours) at 11/30/2023 1636 Last data filed at 11/30/2023 0800 Gross per 24 hour Intake 90 ml Output -- Net 90 ml - Continue jeanna, (indication: intake/output monitoring) - Maintenance: 0.9NS @ 75 mL/hr - Daily Chem 10; electrolytes replaced per NCCU protocol Recent Labs 11/29/23 1502 11/30/23 0152 SODIUM 140 144 POTASSIUM 3.9 4.0 CHLORIDE 106 106 CO2 25 27 BUN 14 14 CREATSERUM 0.71 0.71 MAGNESIUM -- 2.0 CPK 82 -- GI/Nutrition: Dysphagia secondary to ischemic stroke Recent Labs 11/30/23 0152 ALBUMIN 3.4* BILIDIRECT 0.2 BILITOTAL 0.9 ALKPHOS 80 ALT 8* AST 16 TP 6.4 - DIET NPO AND TUBE FEEDING with meds AAT - Johnson Swallow Screening Result: excluded from swallow screen = NPOPlace Dobhoff tube -- Vital AF 1.2 10-55 cc/hr --> goal rate 55 cc/hr - Body mass index is 37.02 kg/m . - Bowel regimen: - Senna, miralax scheduled Endo: No Current Issues - Goal blood glucose 140-180 Recent Labs 11/29/23 1448 11/29/23 1502 11/29/23 2305 11/30/23 0152 GLUCOSE 100* 117* 118* 132* HGBA1C -- -- -- 5.3 - Insulin SSI: will monitor for insulin needs -- not currently needed, will evaluate pending TF start ID: Leukocytosis secondary to stress induced response Recent Labs 11/29/23 1502 11/30/23 0152 WBC 13.74* 12.66* - Temp (24hrs), Av F (36.7 C), Min:97.3 F (36.3 C), Max:98.7 F (37.1 C) - PRN Tylenol for T>100.4F - Most recent and positive cultures: Date Collected Source Result Date Finalized 11/29 Staph nasal swab Negative 11/30 - Antiinfectives: Start Date Antiinfective Coverage Course Length Stop Date Heme/Onc: No Current Issues Recent Labs 11/29/23 1502 11/30/23 0152 WBC 13.74* 12.66* RBC 4.81 4.17 HGB 14.7 12.9 HCT 45.8* 39.3 PLATELET 242 255 PT 12.7 -- PTT 27.1 -- INR 1.0 -- - Goal plt >100, INR <1.4, Hgb >7 - OR EBL: 0mL Musc: No Current Issues - PT/OT consulted and following - Current Activity Order: AAT Social/Dispo: - Code status: Full Code - HCPOA/LNOK: Dina Carlisle - 11/30: Last updated Family. pending - pending: Medications reconciled - Discharge planning per PCRM/SW. Complexity. Obesity Body mass index is 37.02 kg/m . - Follow with PCP for dietary and lifestyle modifications. Any conditions listed below are present on admission unless otherwise specified. .Ischemic CVA, Location: RMCA - 11/29/23 Dementia - monitor and treat as needed ICU Checklist: [ ] CAM-ICU [ ] SAT [ ] SBT [ x] DVT ppx; [x ] SCDs; [ ] Lovenox, [ ] heparin [ ] Stress ulcer prophylaxis: none (indication: n/a) - Lines/Tubes: Ava: inserted /, (indication:) CVC: inserted /, (indication:) Castellanos: inserted /, (indication:) Rectal tube: inserted /, (indication:) Enteral access: inserted 11/30, [ ] gastric; [ x] post-pyloric Discussed with NCCU Attending, Dr. Regan Ball MD Service pager: [phone] Service [place] #: [id number] (Beds [id number] and beds), [place] #: [id number] (Beds [id number] [facility] beds) 11/30/23 4:36 PM NEUROCRITICAL CARE HISTORY AND PHYSICAL HOSPITAL VISIT DEMOGRAPHICS Patient: Aroldo Vargas Code status: No Order Admission date: 11/29/2023 2:45 PM Hospital days: LOS: 0 days CHIEF COMPLAINT RMCA stroke s/p mechanical thrombectomy HISTORY OF PRESENT ILLNESS Aroldo Vargas is a 78 y.o. female with a past history of HTN, HLD, CAD, dementia, TIA who [facility] with acute onset L hemiplegia, L facial droop, and slurred speech concerning for a RMCA stroke. She was found by her family this morning with symptoms and her LKW was 2145 on 11/28. She was seen at an OSH with telestroke evaluation. Initial NIHSS was 8. CTA positive for HERVE occlusion and [facility]. No IV thrombolytics as she was outside the window. [facility], her NIH was 16. CTH was showing evolving RMCA territory stroke and CTP was positive for RMCA mismatch. MRS 2, limited by inability to manage her finances due to memory difficulties. She was take to the OR emergently for mechanical thrombectomy with TICI 2b revascularization of a long segment occlusion of HERVE to RM2. She admitted to the NCCU for post-stroke management INTERVAL HISTORY SINCE ADMISSION 11/29/2023: Admit to NCCU REVIEW OF SYSTEMS Review of systems not obtained due to mentation, no family at bedside. HISTORY Past Medical History: Diagnosis Date CAD (coronary artery disease) Dementia Hyperlipidemia Hypertension TIA (transient ischemic attack) No past surgical history on file. Social History Socioeconomic History Marital status: Spouse name: Not on file Number of children: Not on file Years of education: Not on file Highest education level: Not on file Occupational History Not on file Tobacco Use Smoking status: Not on file Smokeless tobacco: Not on file Substance and Sexual Activity Alcohol use: Not on file Drug use: Not on file Sexual activity: Not on file Other Topics Concern Not on file Social History Narrative Not on file Social Determinants of Health Financial Resource Strain: Not on file Food Insecurity: Not on file Transportation Needs: Not on file Physical Activity: Not on file Stress: Not on file Social Connections: Not on file Intimate Partner Violence: Not on file Housing Stability: Not on file ALLERGIES AND HOME MEDICATIONS Allergies: has no allergies on file. Home Medications: No medications prior to admission. Prior to Arrival Meds: No medications prior to admission. Hospital Medications: Infusions: Scheduled: PRN: hydrALAZINE, Labetalol OR Labetalol PHYSICAL EXAM GENERAL: Lethargic, no acute distress HEENT: normocephalic CARDIO: RRR, no m/r/g, no edema PULM: clear to auscultation bilaterally, equal chest rise; no secretions ABDOMINAL: soft, nontender, nondistended, active bowel sounds EXTREMITIES: no wounds or lesions VASCULAR: 2+ distal pulses, capillary refill <3 seconds NEURO: Mental status: lethargic; oriented to person, year Speech/language: fluent; comprehension intact; repetition intact, severely dysarthric Cranial nerves: CN II: right gaze preference, no blink to threat in the left field. PERRL. 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 No nystagmus. CN V: Facial sensation intact to light touch, diminished in the left CN VII: left lower facial paralysis CN VIII: Hearing is grossly intact. CN IX and X: Soft palate elevates symmetrically in the midline CN XI: R shoulder weakness with shrug CN XII: Tongue protrudes midline; no fasciculations Motor: No spontaneous movement or withdrawal of the LUE/LLE with noxious stimuli, follow commands and moves antigravity in RUE/RLE Sensation: Extremity sensation intact in RUE/RLE, grimaces to noxious stimuli in the LUE/LLE Coordination: No ataxia, dysmetria FTS on the right, unable to perform on the left ASSESSMENT AND PLAN Neuro: (11/29/2023) 1 Day Post-Op s/p mechanical thrombectomy, TICI 2b for HERVE/MCA ischemic stroke (11/29/23) Acute HERVE/MCA CVA Left hemiplegia Dysarthria Dysphagia Dementia - Initial CVA Management: - 11/29/23 Stroke alert performed; summary of imaging findings: NIHSS 16 with R MCA stroke - No IV thrombolytics with LKW 2145 on 11/28/23, outside window for administration - 11/29/23 NSGY consulted for thrombectomy, performed and obtained TICI 2B revascularization - Ongoing CVA management: - Monitor neurostatus with neurochecks Q1H and pupilometer Q1H - Prevent cerebral hypoperfusion with goal SBP <180 (see cards) - Imaging: - 11/29/[address] H: acute nonhemorrhagic infarct in the R basal ganglia - MRI B: pending - antiplatelet therapy: ASA 81 mg - Daily NIHSS: NIH Stroke Scale: NIH Level of Conciousness (Provider): 1 NIH LOC Questions (Provider): 0 NIH LOC Commands (Provider): 0 NIH Best Gaze (Provider): 1 NIH Visual (Provider): 2 NIH Facial Palsy (Provider): 2 NIH Left Arm Motor (Provider): 3 NIH Right Arm Motor (Provider): 0 NIH Left Leg Motor (Provider): 3 NIH Right Leg Motor (Provider): 0 NIH Limb Ataxia (Provider): 0 NIH Sensory (Provider): 2 NIH Best Language (Provider): 0 NIH Dysarthria (Provider): 1 NIH Extinction and Inattention (Provider): 2 NIH Total Score (Provider): 17 - Cytotoxic Cerebral Edema Management: - Goal Na 135 - 145; monitor Na Q24H Recent Labs 11/29/23 1502 11/30/23 0152 SODIUM 140 144 OSMOLALITY 294 303 CHLORIDE 106 106 - Stroke etiology presumed to be atherothrombotic based on the TOAST Criteria. Stroke risk factors include CAD, hypercholesterolemia, and hypertension. - Complete TTE (see cards) - Obtain LDL level and statin therapy if indicated (see cards) - Obtain HA1C level (see endo) - Initiate antiplatelet therapy within 48H of admission (see cards) - Initiate VTE prophylaxis immediately if no tPA given or 24H post-thrombectomy if performed (see heme) - Develop therapeutic anticoagulation plan, if indicated based on CVA etiology (see cards) - Consider urine drug screen on admission if no stroke risk factors - Consider hypercoagulability panel 24H-post tPA if no stroke risk factors - Pain/Sedation management - Tylenol 650mg Q4H PRN Psych: No Current Issues Pulm: No Current Issues O2 Sat (%): 96 % (11/29 2313) O2 Device: room air (11/29 2313) Flow (L/min): 2 (11/29 1953) - Goal SpO2 >92%; wean FiO2 as tolerated - - [id number], encourage pulmonary toileting - 11/29 CXR: no acute process (performed at OSH) Cards: Essential HTN HLD CAD Temp: [97.3 F (36.3 C)-98.4 F (36.9 C)] 98.4 F (36.9 C) Pulse (Heart Rate): [64-94] 75 Resp Rate: [16-31] 30 BP: (109-231)/(53-102) 151/87 O2 Sat (%): [94 %-100 %] 96 % - Goal SBP <180, MAP >65 - Home antihypertensives: no known - PRN labetalol and hydralazine - 11/30 TTE: pending - 11/30 troponin: 110 - 11/30 ECG: NSR - Statin Therapy: Indicated if LDL >70; began atorvastatin 40mg with LDL 130 Renal/: No Current Issues - Fluid Balance: - Goal: euvolemia - Net P mL/24H, P mL/admission - UOP P mL/24H - Continue castellanos, (indication: intake/output monitoring) - Maintenance: 0.9NS @ 75 mL/hr - Daily Chem 10; electrolytes replaced per NCCU protocol Recent Labs 11/29/23 1502 11/30/23 0152 SODIUM 140 144 POTASSIUM 3.9 4.0 CHLORIDE 106 106 CO2 25 27 BUN 14 14 CREATSERUM 0.71 0.71 MAGNESIUM -- 2.0 CPK 82 -- GI/Nutrition: Dysphagia secondary to ischemic stroke Recent Labs 11/29/23 1502 ALBUMIN 3.9 BILIDIRECT 0.2 BILITOTAL 0.9 ALKPHOS 107 ALT 6* AST 15 TP 7.3 - DIET NPO WITHOUT meds AAT - Place Dobhoff tube - plan to start tube feeds - There is no height or weight on file to calculate BMI. - Bowel regimen: - Senna, miralax Endo: No Current Issues - Goal blood glucose 140-180 Recent Labs 11/29/23 1502 11/30/23 0152 GLUCOSE 117* 132* - Insulin SSI: will monitor for insulin needs ID: Leukocytosis secondary to stress induced response Recent Labs 11/29/23 1502 11/30/23 0152 WBC 13.74* 12.66* - Temp (24hrs), Av.8 F (36.6 C), Min:97.3 F (36.3 C), Max:98.4 F (36.9 C) - PRN Tylenol for T>100.4F - Most recent and positive cultures: Date Collected Source Result Date Finalized Staph nasal swab - Antiinfectives: Start Date Antiinfective Coverage Course Length Stop Date Heme/Onc: No Current Issues Recent Labs 11/29/23 1502 11/30/23 0152 WBC 13.74* 12.66* RBC 4.81 4.17 HGB 14.7 12.9 HCT 45.8* 39.3 PLATELET 242 255 PT 12.7 -- PTT 27.1 -- INR 1.0 -- - Goal plt >100, INR <1.4, Hgb >7 - OR EBL: 0mL Musc: No Current Issues - PT/OT consulted and following - Current Activity Order: AAT Social/Dispo: - Code status: Full Code - HCPOA/LNOK: Dina Carlisle - 11/30: Last updated Family. pending - pending: Medications reconciled - Discharge planning per PCRM/SW. Complexity. Any conditions listed below are present on admission unless otherwise specified. .Ischemic CVA, Location: [facility] - 11/29/23 Dementia - monitor and treat as needed ICU Checklist: [ ] CAM-ICU [ ] SAT [ ] SBT [ x] DVT ppx; [x ] SCDs; [ ] Lovenox, [ ] heparin [ ] Stress ulcer prophylaxis: none (indication: n/a) - Lines/Tubes: Ava: inserted /, (indication:) CVC: inserted /, (indication:) Castellanos: inserted /, (indication:) Rectal tube: inserted /, (indication:) Enteral access: inserted 11/30, [ ] gastric; [ x] post-pyloric Discussed with NCCU Attending, Dr. Regan Patterson DO Service pager: [phone] Service [place] #: [phone] ([phone] and beds), [place] #: [id number] ([phone] and [facility]) 11/29/23 11:29 PM documented in this encounter [facility] 11-29-2023 Emergency department Note ED Attending No chief complaint on file. No past medical history on file. Aroldo Vargas is a 78 y.o. female. Presents as stroke alert, concern for LVO. BP (!) 173/101 (BP Location: Left arm, BP Position: Lying) Pulse 65 Resp 16 SpO2 95% PE: airway intact, not intubated, moving extremities Differential diagnosis: Differential diagnosis includes but is not limited to the following, at least one of which represents a life or limb threatening condition: LVO, CVA, intracranial hemorrhage, aortic dissection, hypoglycemia, seizure Impression/Plan: Medical Decision Making Likely LVO. Consult neurovasc and neurosurgery to discuss treatment plan. Monitor BP. Reassess airway. Will require admission. Amount and/or Complexity of Data Reviewed Labs: ordered. Radiology: ordered. ECG/medicine tests: ordered. Discussion of management or test interpretation with external provider(s): Discussed neurovascular and neurosurg to determine treatment for LVO and disposition plan Risk Prescription drug management. Decision regarding hospitalization. This patient's history, physical exam and any procedures were performed by the resident. On 11/29/2023 I saw and examined the patient. I discussed the history and examination with the resident and agree with the plan of care. In addition, I have fully participated in the care of this patient. I have reviewed all pertinent clinical information, including history, physical exam and medical decision making with the resident. Sammy Ewing MD 11/29/23 1503 SW responded to a Level A Ischemic Stroke Alert brought in by [employer] from [facility]. Patient is alert and oriented x2 at baseline, per family. Patient's son is en route to [facility], per medics. SW left a HIPAA compliant message with patient's son. SW received a call back from patient's son Jaylen. He is en route to [facility]. Emergency Contacts: - Jaylen Vargas (Child): [phone] ANTONIO Pederson WOOD GRAINER Transportation Engineering Technician Available through Secure Chat [phone] Bed: E038 Expected date: 11/29/23 Expected time: 12:00 AM Means of arrival: Air Comments: DEPARTMENT OF EMERGENCY MEDICINE CHIEF COMPLAINT No chief complaint on file. HPI Aroldo Vargas is a 78 y.o. female with history of HTN and HLD who presents as a transfer from an outside hospital as a level 1 stroke alert. Pt found this morning with L facial droop and L hemiplegia. Seen at OSH where she was noted to have R ICA occlusion. Transferred to [facility] for further management. LKW: [id number] Deficits include: slurred speech, L facial droop, L hemiplegia Anticoagulation/Antiplatelets: none Prior strokes: none Blood glucose: 100 tPA given: none Outside hospital imaging findings if transferred: Impression/Summary CT Head without Contrast Negative CT Angio Brain/Neck R ICA occlusion REVIEW OF SYSTEMS Unable to obtain ROS secondary to acuity of patient's condition. PAST MEDICAL HISTORY No past medical history on file. SURGICAL HISTORY No past surgical history on file. CURRENT MEDICATIONS No current facility-administered medications for this encounter. No current outpatient medications on file. ALLERGIES Not on File FAMILY HISTORY No family history on file. SOCIAL HISTORY Social History Socioeconomic History Marital status: Spouse name: Not on file Number of children: Not on file Years of education: Not on file Highest education level: Not on file Occupational History Not on file Tobacco Use Smoking status: Not on file Smokeless tobacco: Not on file Substance and Sexual Activity Alcohol use: Not on file Drug use: Not on file Sexual activity: Not on file Other Topics Concern Not on file Social History Narrative Not on file Social Determinants of Health Financial Resource Strain: Not on file Food Insecurity: Not on file Transportation Needs: Not on file Physical Activity: Not on file Stress: Not on file Social Connections: Not on file Intimate Partner Violence: Not on file Housing Stability: Not on file PHYSICAL EXAM There were no vitals taken for this visit. Constitutional: Alert, nontoxic, in no acute distress. HENT: Head: Normocephalic, atraumatic. Nose: Normal. Mouth/Throat: Oropharynx clear. Eyes: Conjunctivae normal, without scleral icterus. EOM intact. Neck: Supple with normal ROM. No tracheal deviation. Cardiovascular: RRR. No m/r/g. Pulmonary/Chest: Normal effort with normal breath sounds. No audible stridor Abdominal: Soft, nontender. Musculoskeletal: No obvious deformities. : Deferred. Neurological: NIHSS as below. Skin: Warm and dry. No diaphoresis. Nursing note and vitals reviewed. NIHSS (Provider) Flowsheet Row First Filed Value Provider NIH Stroke Scale NIH Interval (Provider) admission filed on 11/29/2023 1454 NIH Level of Conciousness (Provider) 0 filed on 11/29/2023 1454 NIH LOC Questions (Provider) 1 filed on 11/29/2023 1454 NIH LOC Commands (Provider) 1 filed on 11/29/2023 1454 NIH Best Gaze (Provider) 2 filed on 11/29/2023 1454 NIH Visual (Provider) 1 filed on 11/29/2023 1454 NIH Facial Palsy (Provider) 2 filed on 11/29/2023 1454 NIH Left Arm Motor (Provider) 2 filed on 11/29/2023 1454 NIH Right Arm Motor (Provider) 0 filed on 11/29/2023 1454 NIH Left Leg Motor (Provider) 1 filed on 11/29/2023 1454 NIH Right Leg Motor (Provider) 0 filed on 11/29/2023 1454 NIH Limb Ataxia (Provider) 0 filed on 11/29/2023 1454 NIH Sensory (Provider) 2 filed on 11/29/2023 1454 NIH Best Language (Provider) 2 filed on 11/29/2023 1454 NIH Dysarthria (Provider) 1 filed on 11/29/2023 1454 NIH Extinction and Inattention (Provider) 1 filed on 11/29/2023 1454 NIH Total Score (Provider) 16 filed on 11/29/2023 1454 Is NIH=0 Within 180 min of Last Known Well Time? -- IMAGING CT STROKE HEAD-STROKE ALERT ONLY (Results Pending) CT CEREBRAL PERFUSION ANALYSIS (Results Pending) ED COURSE & MEDICAL DECISION MAKING Important diagnostic considerations include: ischemic stroke, hemorrhagic stroke, transient ischemic attack, hypoglycemia, electrolyte abnormality, infection, seizure, complex migraine with unilateral symptoms Initial Plan: Labs: POC glucose, CBC, Chem, LFTs, EKG, PT/INR Imaging: as above Therapeutic: [] PRN Hydralazine & Labetalol [] Nicardipine gtt Goal systolic BP <220 Consultation: [x] Neurovascular [] Neurosurgery ED Course, Medications Given, MDM: Patient arrived via EMS as a stroke alert. Patient evaluated at the CT scanner by myself and neurovascular resident. The patient was found to be hemodynamically stable and protecting airway. In summary, 78 y/o presents w/ R ICA occlusion. NUS consulted for possible thrombectomy. Will need admission to NCCU. Will continue to be monitored while in the emergency department. Independent Historian: patient, EMS External Data Reviewed: [] Labs. [x] Radiology. [] ECG. [x] Notes. ECG/medicine tests: ordered and independent interpretation performed. Decision-making details documented above. Labs: ordered. Decision-making details documented above. Radiology: ordered and independent interpretation performed. Decision-making details documented above. Discussion of management or test interpretation with external provider(s): Neurovascular, NUS Risk Low: [] OTC drugs. [] Minor surgery with no identified risk factors. Moderate: [] Prescription drug management. [] Minor surgery with identified risk factors. [] Elective major surgery with no identified risk factors. [] Diagnosis or treatment significantly limited by social determinants of health. High: [] Parenteral controlled substances. [] Drug therapy requiring intensive monitoring for toxicity. [] Decision regarding hospitalization. [] Decision not to resuscitate or to de-escalate care because of poor prognosis. [] Elective major surgery with identified risk factors. [] Emergency major surgery. ED Course as of 11/29/23 2238 [place] Nov 29, [address]: Acute nonhemorrhagic infarct in the right basal ganglia lenticulostriate distribution. No significant intracranial mass effect. 1700 CT c-spine: 1. No acute fracture or traumatic malalignment. 2. Degenerative changes as above. 1730 Pt admitted to NCCU per neurology's recs. NUS recs pending at this time. May go to the OR for thrombectomy. Pt hemodynamically stable at time of admission. Medications - No data to display Disposition: NCCU This note was dictated using [employer]. Attempts at proofreading have been made, however errors may still occasionally occur. Rom Stewart MD Resident 11/29/23 1536 documented in this encounter [facility] Discharge summary Note Date/Time November 29, 2023 12:31pm [facility] Medical Records Department [address] [place] [address] Emergency Department Summary 11/29/23 MR#: [id number] Acct: [id number] Name: AROLDO VARGAS Rep #:[id number] : 1945 78 From: Marcellus Barney MD PCP: Maxx Hawkins DO Status:REG E R Location: ED HPI History of Present Illness Chief Complaint: Stroke Alert Detail of Chief Complaint: On ground facial droop, abnormal speech Informant: patient, family and EMS Onset/Context/Timing Onset: - (No results to 100 November 28 per daughter) Context: - (Presumed sudden) Timing: Continuous Quality and Location: Positive for Left Facial Droop, Left Arm Weakness, Left Leg Weakness, Slurred Speech and Difficulty with Ambulation Onset: Last known well November 28 at 2100 Current Severity: Severe Maximum Severity: Severe Worsened by: Unknown Relieved by: Nothing Narrative Narrative: Patient is a 78-year-old woman with history of mild dementia, hypertension, hypercholesterolemia who was in her normal state of health November. Daughter was with her/spoke with her. This morning she was found on the floor with garbled speech and unable to move her left side. She also had a facial droop. Prior similar symptoms: No PFSH PFSH Medical History Dementia Dizziness History of hypertension HTN (hypertension) Hyperlipidemia Morbid obesity with BMI of 45.0-49.9, adult Non-smoker NSTEMI, initial episode of care Sinus bradycardia Stroke/cerebrovascular accident Vision loss of left eye Vision loss of right eye Home Medications aspirin 81 mg tablet,delayed release 81 mg PO DAILY@0800 ##90 10/24/14 [Rx Last Taken Unknown] Systane (PF) 1 cap DAILY eyes 06/27/21 [History Last Taken Unknown] calcium 500 mg tablet 500 mg PO DAILY 06/27/21 [History Last Taken Unknown] cholecalciferol (vitamin D3) 50 mcg (2,000 unit) capsule (Vitamin D3) 50 mcg PO DAILY 06/27/21 [History Last Taken Unknown] docosahexaenoic acid (dha)-epa capsule 1 cap PO DAILY 06/27/21 [History Last Taken Unknown] rivastigmine tartrate 1.5 mg capsule 1.5 mg PO BID 06/27/21 [History Last Taken Unknown] amlodipine 5 mg tablet 5 mg PO DAILY #30 tabs 06/29/21 [Rx Last Taken Unknown] metoprolol tartrate 25 mg tablet 25 mg PO BID #60 tabs 06/29/21 [Rx Last Taken Unknown] hydrochlorothiazide 25 mg tablet 25 mg PO DAILY 07/22/22 [History Last Taken Unknown] atorvastatin 80 mg tablet 80 mg PO QHS #30 tabs 07/23/22 [Rx Last Taken Unknown] Allergy/AdvReac Type Severity Reaction Status Date / Time No Known Allergies Allergy Verified 11/29/23 12:56 Family History Mother CVA (cerebral vascular accident) Hypertension Cancer Leukemia Father CVA (cerebral vascular accident) COPD (chronic obstructive pulmonary disease) Surgical History History of section Hx of cholecystectomy S/P tonsillectomy and adenoidectomy Social History household members: none Smoking Status: Never smoker alcohol intake: never substance use type: does not use ROS ROS ED Review of Systems ROS Unobtainable: due to mental status EXAM Physical Exam Const Vital Signs: 11/29/23 12:18 11/29/23 12:15 Temperature 97.9 F 98 F Temperature Source Temporal Temporal Pulse Rate 78 69 Respiratory Rate 18 18 Blood Pressure 190/102 H 158/76 H Blood Pressure Mean 131 103 Pulse Ox 96 99 Oxygen Delivery Method Room Air Room Air Positive well nourished, obese and unkempt General Appearance ED: unkempt Nutritional Appearance: obese HEENT Reports dry mucous membranes trauma; Negative for atraumatic Mouth ED: Yes dry mucous membranes Mouth: dry mucous membranes Eyes PERRL; Negative for EOMs intact bilaterally Eyes Narrative: Forced deviation of eyes to the right Neck no lymphadenopathy, supple and no JVD Chest Wall inspection of chest normal and palpation of chest normal Resp normal respiratory effort and clear to auscultation bilaterally Cardio no murmurs Rate: regular rate Rhythm: regular rhythm GI normal to inspection, nondistended, normoactive bowel sounds, soft to palpation,non-tender, non-distended and no masses Extremity General Extremety ED: Yes edema; Negative for deformity or tenderness General Extremity: edema; Negative for deformity Neuro No oriented x3, No CN's II-XII intact bilaterally and No no sensory deficits noted Sofia Coma Scale: document GCS findings To Voice Obeys Commands Confused 13 Sensorium / Orientation: Negative for alert Speech: Negative for speech normal Gait (Neuro): Negative for normal gait Psych mental status grossly normal Appearance: unkempt Skin Skin Narrative: Contusion left extremities NIHSS NIHSS Initial: 1a Level of Consciousness: 1 1b LOC Questions (Score 2 if aphasic/stupor): 2 1c LOC Commands (Only score 1st attempt): 0 2 Best Gaze (If aphasic, use reflexive mvmts.): 2 4 Facial Palsy: 2 5 Motor Arm Right (UN = amputation/fusion): 0 5 Motor Arm Left: 3 6 Motor Leg Right: 0 6 Motor Leg Left: 4 7 Limb ataxia (Only + if out of proportion): UN 8 Sensory (Aphasia/stupor=0 or 1, coma=2): 0 9 Best Language: 3 10 Dysarthria (mute, coma=2, intubated=UN): 2 Total Score: 19 Follow up: 1a Level of Consciousness: 1 1b LOC Questions (Score 2 if aphasic/stupor): 1 1c LOC Commands (Only score 1st attempt): 0 2 Best Gaze (If aphasic, use reflexive mvmts.): 2 3 Visual: 0 4 Facial Palsy: 2 5 Motor Arm Right (UN = amputation/fusion): 0 5 Motor Arm Left: 3 6 Motor Leg Right: 0 6 Motor Leg Left: 2 7 Limb ataxia (Only + if out of proportion): 0 8 Sensory (Aphasia/stupor=0 or 1, coma=2): 1 10 Dysarthria (mute, coma=2, intubated=UN): 1 11 Extinction and Inattention (only scored if +): 1 Total Score: 14 MDM MDM MDM Narrative Medical decision making narrative: Patient patient was met in the ambulance bay. Patient has findings consistent with a LVO. Also need to rule out intracranial bleed since she was found on thefloor. Patient has either a large vessel or collusion on the right side since her eyes are deviated to the left or she has a hemorrhage on the left side. Stroke order set was initiated with CTA. Unenhanced scan revealed no evidence of intracranial bleed. CTA reveals LVO right middle cerebral artery. Case discussed with [facility]. Service and transfer line. They have excepted transfer. Arrangements have been made for helicopter transport to [facility] since her symptoms started less than 24 hours ago. This was discussed with son since patient does not have capacity in my opinion to make a decision. Patient was on the floor potentially for greater than 12 hours CPK was obtained to evaluate for rhabdomyolysis. Electrolyte panel to assess for renal dysfunction. Blood pressure is elevated 190/102 and will allow for permissive hypertension since patient has an acute stroke and not a thrombolytic candidate. History & Record Review Discussion w/independent historian: Family Additional record(s) reviewed:: Prior outpatient record and Prior labs Lab Data Attestation: I reviewed the patient's lab results. Labs: Laboratory Results - last 24 hr 11/29/23 12:30 WBC 9.6 RBC 4.12 L Hgb 12.8 Hct 38.3 MCV 93.0 MCH 31.1 MCHC 33.4 RDW Std Deviation 42.1 RDW Coeff of Alexa 12.4 Plt Count 215 MPV 10.2 Immature Gran % (Auto) 0.400 Neut % (Auto) 88.1 H Lymph % (Auto) 7.1 L [place] % (Auto) 4.1 Eos % (Auto) 0.1 Baso % (Auto) 0.2 Absolute Neuts (auto) 8.5 H Absolute Lymphs (auto) 0.68 L Nucleated RBC % 0 PT 13.2 INR 1.0 APTT 26.2 Radiography Chest X-Ray - ED: 1 View and Read by ED Physician (Interpreted at 11/21/2007 as negative for any acute pathology. Patient is slightly rotated. Left hemidiaphragm slightly elevated. Cardiac silhouette size normal. Lung parenchyma is normal with no evidence of infiltrate to suggest aspiration, osseous structures unremarkable.) Diagnostic Testing: Clinical Impression(s) from Imaging Studies Brain CT 11/29/23 12:17 IMPRESSION: Hyperdense right middle cerebral artery with corresponding changes in the right frontal parietal lobes and basal ganglia on the right side. N.B. : The above Results were Read Back by Mark Smith MD to Marcellus Barney and understanding confirmed on 11/29/2023 12:31:16 (ET). Electronically Signed: Mark Smith MD at 12:32 EST , ADDENDUM: 11/29/23 1239 IMPRESSION: Hyperdense right middle cerebral artery with corresponding changes in the right frontal parietal lobes and basal ganglia on the right side. N.B. : The above Results were Read Back by Mark Smith MD to Marcellus Barney and understanding confirmed on 11/29/2023 12:31:16 (ET). Electronically Signed: Mark Smith MD at 12:32 EST , Head/Neck CTA 11/29/23 12:17 IMPRESSION: Occlusion of the right internal carotid artery just distal to its origin. Nonvisualization of the right middle cerebral arteries. Calcific plaques at the origin of the right and left internal carotid arteries. N.B. : The above Results were Read Back by Mark Smith MD to Dr Anatoly MD, and understanding confirmed on 11/29/2023 12:49:59 (ET). Electronically Signed: Mark Smith MD at 12:51 EST , ADDENDUM: 11/29/23 1258 IMPRESSION: Occlusion of the right internal carotid artery just distal to its origin. Nonvisualization of the right middle cerebral arteries. Calcific plaques at the origin of the right and left internal carotid arteries. N.B. : The above Results were Read Back by Mark Smith MD to Dr Anatoly MD, and understanding confirmed on 11/29/2023 12:49:59 (ET). Electronically Signed: Mark Smith MD at 12:51 EST , EKG Initial EKG: Attestation: I personally reviewed and interpreted this EKG as follows: Interpretation: Sinus Rhythm (Sinus rhythm rate of 73. The EKG is normal.) Management Discussion w/another healthcare provider: Air Dispatcher and Radiologist Critical Care Time Critical Care Time: Yes Critical care time (excluding procedures): 30-74 minutes (31), Including time spent: (3, physical, documentation, independent review of CTA which reveals in the acute LVO right middle cerebral artery, arrangements for transport with [facility]), Discussing w/Patient &/or Family/Medicare Compliance Auditor, Discussing w/Consultants and Arranging Admission or Transfer Discharge Plan Triage Chief Complaint: Stroke Alert ED Provider: Marcellus Barney Dx/Rx/DC Orders Clinical Impression: 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) stroke, Hypertension Prescriptions: No Action aspirin 81 MG tablet 81 mg PO DAILY@0800 Qty: 90 0RF Patient Comments: blood thinner/heart health rivastigmine tartrate 1.5 mg Capsule 1.5 mg PO BID calcium 500 mg Tablet 500 mg PO DAILY docosahexaenoic acid-epa Capsule 1 cap PO DAILY cholecalciferol (vitamin D3) [Vitamin D3] 50 mcg (2,000 unit) Capsule 50 mcg PO DAILY Systane (PF) 1 cap DAILY metoprolol tartrate 25 mg tablet 25 mg PO BID Qty: 60 0RF amlodipine 5 mg tablet 5 mg PO DAILY Qty: 30 0RF hydrochlorothiazide 25 mg tablet 25 mg PO DAILY Patient Comments: take 1 tablet by mouth once daily atorvastatin 80 mg Tablet 80 mg PO QHS Qty: 30 0RF Primary Care Provider: Maxx Hawkins Referrals: Maxx Hawkins DO [Primary Care Provider] - Capacity Capacity Assessment Tool Can the patient make a choice & communicate that choice?: No Can the patient understand benefits, risks and alternatives?: No Can the patient make a logical, rational choice?: Unable to Determine Is the choice the patient makes consistent w/ their values?: Comment (To son jorgesissaskia who agree with transport to [facility] for clot retrieval) Is there an impending, emergent risk to the patient?: Yes Does the patient have an Advance Directive?: Unable to Determine Is there a Surrogate Available?: Yes i.e. close relative (spouse, child, parent, sibling)?: Yes What to do if you have Problems For any increased pain, shortness of breath, bleeding, nausea or vomiting, chestpain, or any unexpected problems, contact your Primary Care Provider. Call [facility] ([phone]) or report to the closest Emergency Room. Call 911 if necessary. 11/29/23 1309 <Electronically signed by Marcellus Barney MD> Cosigner Signature (if applicable): CC: Maxx Hawkins DO ~ Signed [facility] Work Phone: Evaluation noteNo assessment information available [facility] Work Phone: Evaluation note* Diagnosis Onset Date Resolution Status History of hypertension acut e Paresthesia of left arm and leg acute Sinus bradycardia acute [facility] Work Phone: Evaluation note* Diagnosis Ischemic stroke- Primary Acute right MCA stroke Unspecified cerebral artery occlusion with cerebral infarction Other cerebrovascular vasospasm and vasoconstriction Stroke Unspecified cerebral artery occlusion with cerebral infarction Anemia (Low HGB) Anemia, unspecified Electrolyte disorder (K, Cl, or Na) Electrolyte and fluid disorders not elsewhere classified documented in this encounter [facility] Family History No Family History Records Found Relationship Condition Age at Onset Recorded Date/T terra mother Cerebrovascular accident (CVA) Unknown Hypertension Unknown Malignant neoplasm Unknown father Cerebrovascular accident (CVA) Unknown Chronic obstructive pulmonary disease Unk nown Advance Directives No Advanced Directives Records Found Advance Directive Response Recorded Date/ Time Advance Directives Yes October 24, 2014 1:34am Living Will Yes June 27, 2021 8:08pm Power of Press Shop Supervisor Yes June 27 8:08pm Advance Directive Response Recorded Date/ Time Name of Medical Power of Press Shop Supervisor Jaylen Vargas /son/POA July 22, 2022 1:32pm Advance Directives Yes October 24, 2014 1:34am Living Will Yes July 22 1:32pm Power of Press Shop Supervisor Yes July 22, 2022 1:32pm Advance Directive Response Recorded Date/ Time Advance Directives Yes October 24, 2014 12:34am Living Will Yes July 22 12:32pm Power of Press Shop Supervisor Yes July 22, 2022 12:32pm Advance Directive Response Recorded Date/ Time Advance Directives Yes October 24, 2014 12:34am Living Will Yes November 29 12:59pm Power of Press Shop Supervisor Yes November 29, 2023 12:59pm Name of Medical Power of Press Shop Supervisor SON November 29, 2023 12:59pm Documents on File Type Date Recorded Patient Athletic Director Expl anation HealthCare Power of Press Shop Supervisor 07/08/2021 Advance Directives/Living Will 07/08/2021 Latest Code Status on File Code Status Date Activated Date Inactivated Comments Full Code 11/30/2023 12:59 AM Advance Directive Response Recorded Date/ Time Advance Directives Yes October 24, 2014 1:34am Living Will Yes November 29 1:59pm Power of Press Shop Supervisor Yes November 29, 2023 1:59pm Name of Medical Power of Press Shop Supervisor SON November 29, 2023 1:59pm Date Activated Date Inactivated Comments 11/30/2023 12:59 AM Chief Complaint and Reason for Visit Chief Complaint TIA VS CVA TIA VS CVA TIA VS CVA Reason for Visit History of hypertens ion Paresthesia of left arm and leg Sinus bradycardia Chief Complaint stroke alert Chief Complaint stroke alert LABWORK Chief Complaint stroke alert LABWORK LABWORK Chief Complaint stroke alert LABWORK LABWORK RESIDENTIAL LAB WORK LABWORK Chief Complaint stroke alert LABWORK LABWORK RESIDENTIAL LAB WORK LABWORK RESIDENTIAL LAB WORK Chief Complaint stroke alert LABWORK LABWORK RESIDENTIAL LAB WORK LABWORK RESIDENTIAL LAB WORK LABWORK Summary Purpose Reason for Referral Specialty Diagnoses / Procedures Referred By Contac t Referred To Contact Social Work Diagnoses Acute right MCA stroke Charli Kang MD [address] [place] [address] Referral ID Status Reason Start Date Expiration Date V isits Requested Visits Authorized [id number] New Request 12/20/2023 01/13/2025 1 1 Specialty Diagnoses / Procedures Referred By Contac t Referred To Contact Ryley Licea ELECTRICAL CONTINUITY TESTER-COLLAR SETTER [address] [place] [id number] Referral ID Status Reason Start Date Expiration Date V isits Requested Visits Authorized [id number] New Request 12/14/2023 01/07/2025 1 1 Specialty Diagnoses / Procedures Referred By Contac t Referred To Contact Neurology Diagnoses Acute right MCA stroke Haris Chakraborty ELECTRICAL CONTINUITY TESTER-COLLAR SETTER [address] [place] [address] Referral ID Status Reason Start Date Expiration Date V isits Requested Visits Authorized [id number] New Request 12/12/2023 01/05/2025 1 1 Specialty Diagnoses / Procedures Referred By Contac t Referred To Contact Diagnoses Acute right MCA stroke Other cerebrovascular vasospasm and vasoconstriction Procedures MOBILE CARDIAC TELEMETRY Haris Chakraborty ELECTRICAL CONTINUITY TESTER-COLLAR SETTER [address] [place] [address] Referral ID Status Reason Start Date Expiration Date V isits Requested Visits Authorized [id number] New Request 12/12/2023 01/05/2025 1 1 Specialty Diagnoses / Procedures Referred By Contac t Referred To [address] [place] [address] Referral ID Status Reason Start Date Expiration Date Visits Re quested Visits Authorized Specialty Diagnoses / Procedures Referred By Contac t Referred To Contact Procedures NO PHARMACOLOGICAL DVT PROPHYLAXIS Osmar Spears MD [address] [place] [id number] Referral ID Status Reason Start Date Expiration Date V isits Requested Visits Authorized [id number] Pending Review 11/30/2023 12/24/2024 1 1 Specialty Diagnoses / Procedures Referred By Contac t Referred To Contact Procedures DVT/VTE RISK ASSESSMENT Osmar Spears MD [address] [place] [id number] Referral ID Status Reason Start Date Expiration Date V isits Requested Visits Authorized [id number] Pending Review 11/30/2023 12/24/2024 1 1 Specialty Diagnoses / Procedures Referred By Contac t Referred To Contact Procedures ECG Ryley Licea APRN-COLLAR SETTER [address] [place] [address] Referral ID Status Reason Start Date Expiration Date V isits Requested Visits Authorized [id number] Pending Review 11/30/2023 12/24/2024 1 1 Specialty Diagnoses / Procedures Referred By Contac t Referred To Contact Procedures DVT/VTE RISK ASSESSMENT Ryley Licea, ELECTRICAL CONTINUITY TESTER-COLLAR SETTER [address] [place] [address] Referral ID Status Reason Start Date Expiration Date V isits Requested Visits Authorized [id number] Pending Review 11/30/2023 12/24/2024 1 1 Specialty Diagnoses / Procedures Referred By Contac t Referred To Contact Procedures ECG Sammy Ewing MD [address] [place] [address] Referral ID Status Reason Start Date Expiration Date V isits Requested Visits Authorized [id number] Pending Review 11/29/2023 12/23/2024 1 1 Additional Source Comments Goals (unrecognized section and content) Goals may be documented in a n alternate sectionGoals may be documented in an alternate sectionGoals may be documented in an alternate sectionGoals may be documented in an alternate sectionGoals may be documented in an alternate sectionGoals may be documented in an alternate sectionGoals may be documented in an alternate sectionGoals may be documented in an alternate sectionGoals may be documented in an alternate section Care Teams (unrecognized sec tion and content) Team Status: Active Member Role Status Dates Dr. Santo Dumont MD Family Provider Active Maxx Hawkins DO Primary Care Provider Active Team Status: Inactive Member Role Status Dates Maxx Hawkins DO Primary Care Provider, Attending Provider Active Team Status: Inactive Member Role Status Dates Maxx Hawkins DO Primary Care Provider Active Dr. Marcellus Barney MD Emergency Provider Active Entry Level Programmer Relationship Specialty Start Date End Date Santo Dumont MD [address] [place] [address] PCP - General 03/23/08 11/29/23 Maxx Hawkins DO [address] [place] [address] PCP - General Family Medicine 11/30/23 Team Status: Inactive Member Role Status Dates Maxx Hawkins DO Primary Care Provider Active Dr. Marcellus Barney MD Attending Provider, Emergency Provi joanne Active Team Status: Inactive Member Role Status Dates Maxx Hawkins DO Primary Care Provider Active Santo PEÑALOZA MD Attending Provider Active Team Status: Active Member Role Status Dates Maxx Hawkins DO Primary Care Provider Active Santo PEÑALOZA MD Attending Provider Active Team Status: Inactive Member Role Status Dates Maxx Hawkins DO Primary Care Provider Active Santo PEÑALOZA MD Attending Provider, Referring Pr ovider Active Entry Level Programmer Relationship Specialty Start Date End Date Maxx Hawkins DO [address] [place] [id number] PCP - General Family Medicine 11/30/23 INFORMATION SOURCE (unrecogn ized section and content) DATE CREATED AUTHOR 12/15/2023 [facility] DATE CREATED AUTHOR AUTHOR'S ORGANIZ ATION 05/01/2025 [facility] Reason for Visit (unrecogniz ed section and content) Specialty Diagnoses / Procedures Referred By Manjula taylor Referred To Contact Diagnoses Ischemic stroke Stroke Level A Ischemic Stroke/ LVO Christian Powers MD [address] [place] [address] [facility] [address] [place] [address] Referral ID Status Reason Start Date Expiration Date Visits Re quested Visits Authorized [id number] 1 1 Scheduled Active and Recently Administ ered Medications (unrecognized section and content) Medication Order 12/19/2023 12/20/2023 12/21/2023 aspirin chewable tablet 81 mg 81 mg, PEG Tube, DAILY, First dose (after last modification) on Sun12/19/23 at 0900, Until Discontinued 08 (Given - Provider: Sahra Young RN) 920 (Given - Provider: Sahra Young RN) 08 (Given - Provider: Nori Hendrix RN) Atorvastatin (LIPITOR) tablet 40 mg 40 mg, PEG Tube, DAILY AT BEDTIME, First dose (after last modification) on Sun12/19/23 at 2100, Until Discontinued 2107 (Given - Provider: Bernabe Dove RN) 2100 (Given - Provider: Bernabe Dove RN) carveDILOL (COREG) tablet 12.5 mg 12.5 mg, PEG Tube, EVERY 12 HOURS NON-STANDARD, First dose (after last modification) on Sun12/19/23 at 0900, Until Discontinued 08 (Given - Provider: Sahra Young RN)2108 (Given - Provider: Bernabe Dove RN) 920 (Given - Provider: Sahra Young RN)2100 (Given - Provider: Bernabe Dove RN) 0848 (Given - Provider: Nori Hendrix RN) Enoxaparin Sodium (LOVENOX) injection 40 mg(Linked Group 1) 40 mg, Subcutaneous, DAILY, First dose (after last modification) on Afua 12/20/23 at 0900, Until Discontinued, Indications: DVT/PE prophylaxis 0921 (Given - Provider: Sahra Young RN) 0848 (Given - Provider: Nori Hendrix RN) lidocaine 4 % patch 2 patch 2 patch, Transdermal, Administer over 12 Hours, EVERY 24 HOURS, First dose on 12/08/23 at 1200, Until Discontinued, Apply to neck/ R shoulder 1053 (Patch Applied - Provider: Sahra Young RN - Comment: neck/right shoulder)211 (Patch Removed - Provider: Bernabe Dove RN) 1108 (Patch Applied - Provider: Sahra Young RN)2224 (Patch Removed - Provider: Bernabe Dove RN) 1200 (Canceled Entry - Provider: System Discharge - Comment: Automatically canceled at discontinue of medication order) Lisinopril (PRINIVIL) tablet 40 mg 40 mg, PEG Tube, DAILY, First dose (after last modification) on Sun12/19/23 at 0900, Until Discontinued 0853 (Given - Provider: Sahra Young RN) 0921 (Given - Provider: Sahra Young RN) 0848 (Given - Provider: Nori Hendrix RN) Continuous Medication Order 12/19/2023 12/20/2023 12/21/2023 Jevity 1.5 Benny/Fiber LIQD 10-50 mL/hr, PEG Tube, CONTINUOUS, Starting on Sun12/19/23 at 1400, Until Sun12/21/23 at 1420 1403 (New Feeding/Supplement - Provider: Sahra Young RN)1800 (Rate/Dose Change - Provider: Sahra Young RN)1803 (Rate/Dose Verify - Provider: Sahra Young RN)2118 (Rate/Dose Change - Provider: Bernabe Dove RN) 0035 (Rate/Dose Change - Provider: Bernabe Dove RN)0422 (Rate/Dose Change - Provider: Bernabe Dove RN)0921 (Rate/Dose Verify - Provider: Sahra Young RN)1108 (New Feeding/Supplement - Provider: Sahra Young RN)1510 (Rate/Dose Verify - Provider: Jarocho Ashley RN) Sodium chloride 0.9% IV solution () Intravenous, at 75 mL/hr, CONTINUOUS, Starting on Sun12/18/23 at 0000, Until Sun12/19/23 at 1400 0233 (Rate/Dose Verify - Provider: Bernabe Dove RN)0330 (Rate/Dose Verify - Provider: Bernabe Dove RN)0613 (Rate/Dose Verify - Provider: Sahra Young RN)0624 (Rate/Dose Verify - Provider: Sahra Young RN)0852 (Paused - Provider: Sahra Young RN)0904 (Restarted - Provider: Sahra Young RN)0913 (Rate/Dose Verify - Provider: Sahra Young RN)0916 (Rate/Dose Verify - Provider: Sahra Young RN)0959 (Rate/Dose Verify - Provider: Sahra Young RN)1053 ($$New Bag$$ - Provider: Sahra Young RN)1119 (Rate/Dose Verify - Provider: Sahra Young RN)1328 (Stopped - Provider: Sahra Young RN) PRN Medication Order 12/19/2023 12/20/2023 12/21/2023 Acetaminophen (TYLENOL) tablet 325 mg(Linked Group 2) 325 mg, PEG Tube, EVERY 4 HOURS NEEDED, Starting on Sun12/19/23 at 0751, Until Sun12/21/23 at 1420, Mild Pain, Moderate Pain, Maximum dose of acetaminophen is 4000 mg from all sources in 24 hours. 2107 (See Alternative - Provider: Bernabe Dove RN) 2100 (See Alternative - Provider: Bernabe Dove RN) Acetaminophen (TYLENOL) tablet 650 mg(Linked Group 2) 650 mg, PEG Tube, EVERY 4 HOURS NEEDED, Starting on Sun12/19/23 at 0751, Until Sun12/21/23 at 1420, Severe Pain, Oral temp > 99.5, Maximum dose of acetaminophen is 4000 mg from all sources in 24 hours. 2107 (Given - Provider: Bernabe Dove RN) 2100 (Given - Provider: Bernabe Dove RN) hydrALAZINE (APRESOLINE) injection 10 mg 10 mg, Intravenous, EVERY 1 HOUR NEEDED, Starting on Sun11/30/23 at 2126, Until Sun12/21/23 at 1420, Systolic Blood Pressure greater than 160 mmHg OR Diastolic Blood Pressure greater than 120 mmHg and heart rate LESS THAN 60 beats per minute., Use as initial dose. Higher dose may be administered if lower dose was previously documented as ineffective 10 minutes after administration and did not result in adverse effects (HR>90). hydrALAZINE (APRESOLINE) injection 20 mg 20 mg, Intravenous, EVERY 1 HOUR NEEDED, Starting on Sun11/30/23 at 2126, Until Sun12/21/23 at 1420, Systolic Blood Pressure greater than 160 mmHg OR Diastolic Blood Pressure greater than 120 mmHg and heart rate LESS THAN 60 beats per minute., Higher dose may be administered if lower dose was previously documented as ineffective 10 minutes after administration and did not result in adverse effects (HR>90). Decrease back to lower dose if patient has adverse effects, or no PRN used in previous 3 hours. Labetalol (NORMODYNE) injection 10 mg(Linked Group 3) 10 mg, Intravenous, EVERY 1 HOUR NEEDED, Starting on Sun11/30/23 at 2127, Until Sun12/21/23 at 1420, Systolic Blood Pressure greater than 160 mmHg OR Diastolic Blood Pressure greater than 120 mmHg and heart rate GREATER THAN 60 beats per minute., Use as initial dose. Higher dose may be administered if lower dose was previously documented as ineffective 10 minutes after administration and did not result in adverse effects (HR<60). For vials: labetalol should be treated as a SINGLE USE VIAL. Discard remaining contents after one use. Labetalol (NORMODYNE) injection 20 mg(Linked Group 3) 20 mg, Intravenous, EVERY 1 HOUR NEEDED, Starting on Sun11/30/23 at 2127, Until Sun12/21/23 at 1420, Systolic Blood Pressure greater than 160 mmHg OR Diastolic Blood Pressure greater than 120 mmHg and heart rate GREATER THAN 60 beats per minute., Higher dose may be administered if lower dose was previously documented as ineffective 10 minutes after administration and did not result in adverse effects (HR<60). Decrease back to lower dose if patient has adverse effects, or no PRN used in previous 3 hours. For vials: labetalol should be treated as a SINGLE USE VIAL. Discard remaining contents after one use. Polyethylene glycol (MIRALAX) packet 17 g 17 g, PEG Tube, DAILY NEEDED, Starting on Sun12/19/23 at 0751, Until Sun12/21/23 at 1420, Constipation If No Bowel Movement in 48 Hours Senna (SENOKOT) tablet 17.2 mg(Linked Group 4) 17.2 mg, PEG Tube, DAILY NEEDED, Starting on Sun12/19/23 at 0751, Until Sun12/21/23 at 1420, Constipation 1st Line, Hold if BM in last 2 hours. Linked Groups Order Group 1: Enoxaparin Sodium (LOVENOX) injection 40 mgJump to med 40 mg, Subcutaneous, DAILY, First dose (after last modification) on Afua 12/20/23 at 0900, Until Discontinued, Indications: DVT/PE prophylaxis And PLATELET COUNT (CANCELED) Routine, EVERY 3 DAYS AM LAB, First occurrence on 12/22/23 at 0500, Until Specified, New collection Group 2: Acetaminophen (TYLENOL) tablet 325 mgJump to med 325 mg, PEG Tube, EVERY 4 HOURS NEEDED, Starting on Sun12/19/23 at 0751, Until Sun12/21/23 at 1420, Mild Pain, Moderate Pain
Maximum dose of acetaminophen is 4000 mg from all sources in 24 hours.
Or Acetaminophen (TYLENOL) tablet 650 mgJump to med 650 mg, PEG Tube, EVERY 4 HOURS NEEDED, Starting on Sun12/19/23 at 0751, Until Sun12/21/23 at 1420, Severe Pain, Oral temp > 99.5
Maximum dose of acetaminophen is 4000 mg from all sources in 24 hours.
Group 3: Labetalol (NORMODYNE) injection 10 mgJump to med 10 mg, Intravenous, EVERY 1 HOUR NEEDED, Starting on Sun11/30/23 at 2128, Until Sun12/21/23 at 1420, Systolic Blood Pressure greater than 160 mmHg OR Diastolic Blood Pressure greater than 120 mmHg and heart rate GREATER THAN 60 beats per minute.
Use as initial dose. Higher dose may be administered if lower dose was previously documented as ineffective 10 minutes after administration and did not result in adverse effects (HR<60). For vials: labetalol should be treated as a SINGLE USE VIAL. Discard remaining contents after one use.
Or Labetalol (NORMODYNE) injection 20 mgJump to med 20 mg, Intravenous, EVERY 1 HOUR NEEDED, Starting on Sun11/30/23 at 2128, Until Sun12/21/23 at 1420, Systolic Blood Pressure greater than 160 mmHg OR Diastolic Blood Pressure greater than 120 mmHg and heart rate GREATER THAN 60 beats per minute.
Higher dose may be administered if lower dose was previously documented as ineffective 10 minutes after administration and did not result in adverse effects (HR<60). Decrease back to lower dose if patient has adverse effects, or no PRN used in previous 3 hours. For vials: labetalol should be treated as a SINGLE USE VIAL. Discard remaining contents after one use.
Group 4: Senna (SENOKOT) tablet 17.2 mgJump to med 17.2 mg, PEG Tube, DAILY NEEDED, Starting on Sun12/19/23 at 0751, Until Sun12/21/23 at 1420, Constipation 1st Line
Hold if BM in last 2 hours.
FOR RECORDS PERTAINING TO PATIENTS WHO ARE OR HAVE BEEN ENROLLED IN A CHEMICAL DEPENDENCY/SUBSTANCEABUSE PROGRAM, SOME INFORMATION MAY BE OMITTED. This clinical summary was aggregated from multiple sources. Caution should be exercised in using it in the provision of clinical care. This summary normalizes information from multiple sources, and as a consequence, information in this document may materially change the coding, format and clinical context of patient data. In addition, data may be omitted in some cases. CLINICAL DECISIONS SHOULD BE BASED ON THE PRIMARY CLINICAL RECORDS. [employer] provides no warranty or guarantee of the accuracy or completeness of information in this document.
[2025-10-12 08:30] LABS: Hematocrit 43.1 % (37-47); Hemoglobin 13.9 g/dL (12.0-15.0); Mean Corp Hgb Conc 32.3 g/dL (32-36); Mean Corpuscular Volume 100.7 fL (81-99); Mean Platelet Vol. 11.1 fl (6.2-12.0); Platelet Count 155 K/mm3 (150-450); RBC Distribution Width CV 13.3 % (11.6-14.6); RBC Distribution Width SD 49.4 fl (35.1-43.9); Red Blood Count 4.28 M/mm3 (4.2-5.4); White Blood Count 7.5 K/mm3 (4.4-11.0)
[2025-10-12 09:02] LABS: Anion Gap 11 (5-15); BUN 17 mg/dL (4-19); BUN/Creat Ratio 23.7 RATIO (10-20); Calcium,Total 9.0 mg/dL (7.6-11.0); Carbon Dioxide 23.7 mmol/L (21.0-32.0); Chloride 110 mmol/L (98-108); Glucose 93 mg/dL (70-99); Potassium 4.1 mmol/L (3.3-5.1)
== END ==
LOC: OLS.WCC 05:00
PROVIDERS: PCP Family Medicine; Visit Provider Family Medicine
DX: D64.9 Anemia, unspecified (principal); I10 Essential (primary) hypertension; E78.5 Hyperlipidemia, unspecified
CPT/HCPCS: 36415; 80048; 85027